=== PATIENT | female | born 1960 | race Caucasian/White ===

== ENCOUNTER 2016-02-19 22:35 | Inpatient (IN) ==
[2016-02-20] MEDS ORDERED: methylPREDNISolone 125 MG/2 ML VIAL IVP ONE (00:56)
[2016-02-20] MEDS ORDERED: Ipratropium/Albuterol Neb 3 ML IH ONE ×2 (00:57→02:49)
--- NOTE | 2016-02-20 00:59 | Emergency Department Note ---
START Narrative - START START: I examined this patient and my medical decision-making was reviewed with the BUTTON CLAMPER/PA/Advanced Practice Nurse/Resident Physician. I agree with the documented findings, disposition and treatment plan as described except to the extent set forth below. ED attending note: Patient seen with the emergency medicine resident . Please see a copy of his note for details of the H&P, evaluation and management and disposition of this emergency Department patient. We independently had skhd-ea-[id number] contact with the patient. Briefly 48-year-old female history of COPD requesting a steroid taper. Refusing any other type of workup. Patient is hemodynamically stable. Given a prescription for steroid taper. Patient stable for discharge home
[2016-02-20] MEDS ORDERED: 0.9 % Sodium Chloride 1,000 ML IV ONE (01:54)
[2016-02-20] MEDS ORDERED: *HR* LORazepam 2 MG/ML VIAL IVP ONE (02:16)
[2016-02-20 02:22] LABS: Basophils % 0.3 %; Hematocrit 47.2 % (35.3-44.9); Immature Granulocytes % 0.9 % (0-4); Immature Platelets 3.1 % (1.1-6.1); Lymphocytes # 2.5 K/mcL (0.6-4.6); Lymphocytes % 17.4 %; Mean Corpuscular HGB Conc 33.9 g/dL (31.6-35.5); Mean Corpuscular Hemoglobin 31.3 pg (28.0-33.3); Mean Corpuscular Volume 92.4 fL (83.0-100.0); Mean Platelet Volume 10.2 fL (9.4-12.4); Monocytes # 1.3 K/mcL (0.0-1.3); Monocytes % 8.7 %; Neutrophils # 10.5 K/mcL (1.6-8.9); Platelet Count 337 K/mcL (140-400); Red Blood Count 5.11 M/mcL (3.82-4.97); Red Cell Distribution Width 15.1 % (11.5-14.5); Segmented Neutrophils % 72.7 %
[2016-02-20 02:35] LABS: BUN/Creatinine Ratio 44 (6-26); Carbon Dioxide 19 mEq/L (19-29); Chloride 108 mEq/L (98-109); Glucose 167 mg/dL (70-99); Osmolality,Calculated 303 (280-300); Potassium 3.7 mEq/L (3.5-4.5); Sodium 141 mEq/L (136-145); eGFR For African Americans > 60 (> 60); eGFR For Non-African Americans > 60 (> 60)
[2016-02-20 02:36] LABS: Blood Urea Nitrogen 32 mg/dL (7-20)
[2016-02-20] MEDS ORDERED: cloNIDine HCl 0.1 MG TABLET PO STA (02:42)
--- NOTE | 2016-02-20 02:42 | Emergency Department Note ---
Disposition Clinical Impression: COPD exacerbation Disposition: Admitted As Inpatient Condition: Fair SOB HPI - General Chief Complaint: ED Shortness of Breath/Dyspnea Stated Complaint: LESTER Time Seen by Provider: 02/20/16 00:46 Source: patient, family Limitations: no limitations Nursing Notes Reviewed: Yes Vital Signs Reviewed: Yes - History of Present Illness Patient here for evaluation of shortness of breath. Patient started having shortness of breath proximally 5 days ago. Patient was seen and evaluated on Tuesday and diagnosed COPD exacerbation. Patient attempted outpatient management with prednisone, Levaquin. Patient has been taking her nebulizer treatments every 4 hours at home. Patient with worsening symptoms of shortness of breath prompting her to return. Patient states she normally gets a prednisone taper that helps better. Patient states she is self-pay and does not want anything other than some breathing treatments dose of Solu-Medrol in prednisone taper. Patient absolutely refuses all other medications and treatments as well as further investigation of symptoms and is refusing admission as this is likely what is going to be recommended. - Related Data Home Medications Medication Instructions Recorded Confirmed Amlodipine Besylate [Norvasc] 10 mg PO QAM 09/25/14 02/20/16 Budesonide/Formoterol 160/4.5 2 puff IH BID 09/25/14 02/20/16 [Symbicort] Aspirin Enteric Coated [Aspirin EC] 81 mg PO QAM 11/03/14 02/20/16 Ipratropium/Albuterol Neb [Duoneb] 3 ml IH Q4HR PRN 02/10/15 02/20/16 Metformin [Glucophage] 1,000 mg PO BID 02/10/15 02/20/16 Pantoprazole Sodium [Protonix] 40 mg PO BID 02/10/15 02/20/16 Aclidinium [place] [Tudorza 400 mcg IH BID 05/03/15 05/03/15 Pressair] Atorvastatin [Lipitor] 40 mg PO DAILY 05/03/15 02/20/16 Glimepiride [Amaryl] 4 mg PO DAILY 05/03/15 02/20/16 Losartan/Hydrochlorothiazide 1 tab PO DAILY 05/03/15 02/20/16 [Losartan-Hctz 100-25 mg Tab] Previous Rx's Medication Instructions Recorded CloNIDine HCl 0.3 mg PO Q6HR #270 tablet 11/07/14 Azithromycin [Zithromax] 250 mg PO DAILY #4 tablet 05/04/15 PredniSONE 60 mg PO DAILY #18 tablet 05/04/15 Levofloxacin [Levaquin] 500 mg PO DAILY #10 tablet 11/05/15 PredniSONE 40 mg PO DAILY #5 tablet 11/05/15 PredniSONE 40 mg PO NOW #20 tablet 02/02/16 Levofloxacin [Levaquin] 500 mg PO DAILY #7 tablet 02/17/16 PredniSONE [Prednisone] 50 mg PO DAILY 5 Days 02/17/16 Allergies Allergy/AdvReac Type Severity Reaction Status Date / Time Penicillins Allergy Unknown See Verified 02/17/16 10:18 Comments NSAIDS (Non-Steroidal Allergy See Verified 02/17/16 10:18 Anti-Inflamma Comments tramadol AdvReac Nausea Verified 02/17/16 10:18 Constitutional: Reports: chills, weakness. Denies: fever Eyes: Denies: eye pain ENT ED: Denies: ear pain Cardiovascular: Denies: chest pain Respiratory: Reports: cough, dyspnea, wheezes Gastrointestinal: Denies: abdominal pain Genitourinary: Denies: urgency, dysuria Musculoskeletal: Denies: back pain Integumentary: Denies: rash, abrasion Neurological: Denies: headache Psychiatric: Denies: anxiety Past Medical History - Past Medical History Medical history: Reports: COPD, diabetes, GERD, hyperlipidemia, hypertension Surgical history: Reports: appendectomy, cholecystectomy, knee replacement (Left ), other Psychiatric history: Reports: no psych history LOGISTICIAN history: Reports: non-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, ectopic , other - Social History Smoking Status: Current every day smoker Smokeless Tobacco Status: No Alcohol use: Reports: none Drug use: Reports: none Physical Exam - General Limitations: no limitations General appearance: alert, in no apparent distress - Head Head exam: atraumatic, normocephalic, normal inspection - Eye Eye exam: Present: normal appearance, PERRL, EOMI - ENT ENT exam: normal exam, normal oropharynx - Neck Neck exam: Present: normal inspection - Chest Chest inspection: Present: normal inspection, symmetric chest wall rise. Absent : tenderness - Respiratory Respiratory exam: Present: respiratory distress, wheezes (Diffuse throughout.) - Cardiovascular Cardiovascular exam: Present: regular rate, normal rhythm - Abdominal Exam Abdominal exam: Present: soft, Non-Tender - Extremities Exam Extremities exam: Present: normal inspection - Back Exam Back exam: Present: normal inspection - Neurological Exam Neurological exam: Present: alert, oriented X3 - Psychiatric Psychiatric exam: Present: normal affect, normal mood - Skin Skin exam: Present: warm, dry Course - Reevaluation(s) Reevaluation #1: After breathing treatments the patient did not feel any better and it occurred to her that she likely will not feel better going home without further intervention. Patient asking us to go ahead and complete her workup so that she can be admitted to the hospital. Reevaluation #2: Pt will be placed on bipap 2/2 increased wob Reevaluation #3: Pt improved and stabalized - Consultations Consultation #1: Accepted by Dr. Ch Vital Signs Temperature 97.9 F 02/19/16 22:37 Pulse Rate 130 02/19/16 22:37 Respiratory Rate 22 02/19/16 22:37 Blood Pressure 161/95 02/19/16 22:37 O2 Sat by Pulse Oximetry 94 L 02/19/16 22:37 Temperature 97.4 F L 02/20/16 06:42 Pulse Rate 107 02/20/16 06:42 Respiratory Rate 22 02/20/16 06:42 Blood Pressure 147/92 02/20/16 06:42 O2 Sat by Pulse Oximetry 95 02/20/16 06:42 Oxygen Delivery Oxygen Delivery Nasal Cannula Shortness of Breath/Dyspnea - Medical Records Medical records reviewed: Yes I reviewed the patient's medical records. - Lab Data Lab results reviewed: Yes I reviewed the patient's lab results. Result diagrams: 02/20/16 02:15 02/20/16 02:15 Lab Results 02/20/16 02/20/16 02/20/16 Range/Units 02:15 02:15 02:15 WBC 14.5 H D (4.3-11.1) K/mcL RBC 5.11 H (3.82-4.97) M/mcL Hgb 16.0 H (11.5-15.4) g/dL Hct 47.2 H (35.3-44.9) % MCV 92.4 (83.0-100.0) fL MCH 31.3 (28.0-33.3) pg MCHC 33.9 (31.6-35.5) g/dL RDW 15.1 H (11.5-14.5) % Plt Count 337 (140-400) K/mcL MPV 10.2 (9.4-12.4) fL Immature Gran % 0.9 (0-4) % Seg Neutrophils % 72.7 % Lymphocytes % 17.4 % Monocytes % 8.7 % Eosinophils % 0.0 % Basophils % 0.3 % Neutrophils # 10.5 H (1.6-8.9) K/mcL Lymphocytes # 2.5 (0.6-4.6) K/mcL Monocytes # 1.3 (0.0-1.3) K/mcL Eosinophils # 0.0 (0.0-0.6) K/mcL Basophils # 0.0 (0.0-0.2) K/mcL Immature Plt Fraction 3.1 (1.1-6.1) % Sodium 141 (136-145) mEq/L Potassium 3.7 (3.5-4.5) mEq/L Chloride 108 (98-109) mEq/L Carbon Dioxide 19 (19-29) mEq/L BUN 32 H D (7-20) mg/dL Creatinine 0.72 (0.57-1.11) mg/dL Est GFR ( Amer) > 60 (> 60) Est GFR (Non-Af Amer) > 60 (> 60) BUN/Creatinine Ratio 44 H (6-26) Glucose 167 H (70-99) mg/dL Calculated Osmolality 303 H (280-300) Calcium 10.0 (8.6-10.8) mg/dL Magnesium (1.6-2.6) mg/dL Troponin I 0.01 (0-0.03) ng/mL 02/20/16 Range/Units 02:15 WBC (4.3-11.1) K/mcL RBC (3.82-4.97) M/mcL Hgb (11.5-15.4) g/dL Hct (35.3-44.9) % MCV (83.0-100.0) fL MCH (28.0-33.3) pg MCHC (31.6-35.5) g/dL RDW (11.5-14.5) % Plt Count (140-400) K/mcL MPV (9.4-12.4) fL Immature Gran % (0-4) % Seg Neutrophils % % Lymphocytes % % Monocytes % % Eosinophils % % Basophils % % Neutrophils # (1.6-8.9) K/mcL Lymphocytes # (0.6-4.6) K/mcL Monocytes # (0.0-1.3) K/mcL Eosinophils # (0.0-0.6) K/mcL Basophils # (0.0-0.2) K/mcL Immature Plt Fraction (1.1-6.1) % Sodium (136-145) mEq/L Potassium (3.5-4.5) mEq/L Chloride (98-109) mEq/L Carbon Dioxide (19-29) mEq/L BUN (7-20) mg/dL Creatinine (0.57-1.11) mg/dL Est GFR ( Amer) (> 60) Est GFR (Non-Af Amer) (> 60) BUN/Creatinine Ratio (6-26) Glucose (70-99) mg/dL Calculated Osmolality (280-300) Calcium (8.6-10.8) mg/dL Magnesium 1.7 (1.6-2.6) mg/dL Troponin I (0-0.03) ng/mL - Radiology Data Radiology results reviewed: Yes I reviewed the patient's radiology results. - EKG Data EKG attestation: Yes I reviewed and interpreted this EKG. EKG results narrative: EKG shows sinus tachycardia with a ventricular rate of 152. ID interval 116. QRS 81. QTC 399. Patient has no ST elevations or depressions.
--- NOTE | 2016-02-20 04:40 | Internal Med History&Physical ---
Date of Encounter: 02/20/16 Time of Encounter: 04:40 Assessment and Plan (1) Acute on chronic respiratory failure Current visit: No Status: Acute ARF with hypoxia in the setting of COPD exacerbation. Patient currently stable on 6 LPM via BiPAP mask. Continue IV steroids. Continue duonebs and home symbicort. Continue PO Levaquin. Patient seems to be improving on BiPAP, consider ABG. Patient refused workup initially in the ED as she is self pay. Qualifiers: Respiratory failure complication: hypoxia Qualified Code(s): J96.21 - Acute and chronic respiratory failure with hypoxia (2) Acute exacerbation of chronic obstructive airways disease Current visit: No Status: Acute See above. (3) Leukocytosis Current visit: No Status: Acute WBC elevated at 14.5 Likely reactive in the setting of COPD exacerbation CXR showed no acute processes. Patient is afebrile. Qualifiers: Leukocytosis type: unspecified Qualified Code(s): D72.829 - Elevated white blood cell count, unspecified (4) Accelerated hypertension Current visit: No Status: Chronic History of renal artery stenosis. Current BP 173/105. Continue home medications and adjust as needed. (5) Diabetes mellitus Current visit: No Status: Acute Current BG 167. Continue home glimepiride. Consider low intensity SSI. Qualifiers: Diabetes mellitus type: type 2 Diabetes mellitus complication status: without complication Qualified Code(s): E11.9 - Type 2 diabetes mellitus without complications (6) Hyperlipidemia Current visit: No Status: Chronic Continue home medications. Qualifiers: Hyperlipidemia type: unspecified Qualified Code(s): E78.5 - Hyperlipidemia , unspecified (7) Tobacco abuse Current visit: No Status: Chronic Currently 1ppd, will give nicotine patch while inpatient. Advise to stop smoking, especially with current COPD exacerbation. Internal Medicine - H&P: HPI Chief complaint: shortness of breath Admitted From: Emergency Dept Plans for Post Hospital Care: Home History of present illness: Ms. Ren is a 56 year old female presented to the ED for shortness of breath for approximately 5 days ago. Patient seen and evaluated on Tuesday in the ED and was diagnosed with COPD exacerbation. Patient failed outpatient management with prednisone, Levaquin, and duonebs. Patient was taking her nebulizer treatments every 4 hours at home. On exam patient was on BiPAP mask and kept responses short and direct. She did note that the ativan she was given was making her tired. Patient admits to chronic neck and back pain and states she currently has a headache. Patient also notes recent diarrhea and vomiting that has currently resolved. Patient denies any dizziness, chest pain, abdominal pain , syncope, numbness, tingling, melena, dysuria, or any signs of blood in stool/ vomit/urine. In the ED patient expressed concern that she is self-pay and initially refused workup and further treatments, until she continued to be short of breath after receiving breathing treatments. Past Med Surg Social Fam HX - Past Medical History Medical history: COPD, diabetes, GERD, hyperlipidemia, hypertension Psychiatric history: no psych history - Past Surgical History Surgical History: appendectomy, cholecystectomy, knee replacement (Left), other - Social History Smoking Status: Current every day smoker Smokeless Tobacco Status: No Alcohol use: none Drug use: none - Family History Father Living Status: Hx Family Cardiac Disorders: Yes (Coronary artery disease) Mother Living Status: Still Living Hx Family Cardiac Disorders: Yes (Hypertension) Hx Family Respiratory Disorders: No Hx Family Cancer: No Hx Family GI Disorders: No Hx Family Endocrine Disorder: Yes (Diabetes mellitus) Hx Family Neuromuscular Disorders: No Hx Family Neurologic Disorders: No Hx Family HEENT Disorders: No Hx Family Autoimmune Disorders: No Internal Medicine - H&P: Meds Amlodipine Besylate [Norvasc] 10 mg PO QAM 09/25/14 [History] Budesonide/Formoterol 160/4.5 [Symbicort] 2 puff IH BID 09/25/14 [History] Aspirin Enteric Coated [Aspirin EC] 81 mg PO QAM 11/03/14 [History] CloNIDine HCl 0.3 mg PO Q6HR #270 tablet 11/07/14 [Rx] Ipratropium/Albuterol Neb [Duoneb] 3 ml IH Q4HR PRN 02/10/15 [History] Metformin [Glucophage] 1,000 mg PO BID 02/10/15 [History] Pantoprazole Sodium [Protonix] 40 mg PO BID 02/10/15 [History] Aclidinium [place] [Tudorza Pressair] 400 mcg IH BID 05/03/15 [History] Atorvastatin [Lipitor] 40 mg PO DAILY 05/03/15 [History] Glimepiride [Amaryl] 4 mg PO DAILY 05/03/15 [History] Losartan/Hydrochlorothiazide [Losartan-Hctz 100-25 mg Tab] 1 tab PO DAILY [History] Azithromycin [Zithromax] 250 mg PO DAILY #4 tablet 05/04/15 [Rx] PredniSONE 60 mg PO DAILY #18 tablet 05/04/15 [Rx] Levofloxacin [Levaquin] 500 mg PO DAILY #10 tablet 11/05/15 [Rx] PredniSONE 40 mg PO DAILY #5 tablet 11/05/15 [Rx] PredniSONE 40 mg PO NOW #20 tablet 02/02/16 [Rx] Levofloxacin [Levaquin] 500 mg PO DAILY #7 tablet 02/17/16 [Rx] PredniSONE [Prednisone] 50 mg PO DAILY 5 Days 02/17/16 [Rx] Allergies Penicillins Allergy (Unknown, Verified 02/17/16 10:18) See Comments states can take Keflex. NSAIDS (Non-Steroidal Anti-Inflamma Allergy (Verified 02/17/16 10:18) See Comments tramadol Adverse Reaction (Verified 02/17/16 10:18) Nausea ROS unobtainable: other (limited responses in the setting of sedatives and currently on BiPAP.) All Systems PM: A 10-system review of systems was performed and is negative for pertinent findings except as documented above in the HPI. - Constitutional Constitutional: no chills, no fever(s) - EENT Nose, mouth and throat: no dysphagia - Cardiovascular Cardiovascular ROS IM: dyspnea, no chest pain, no lightheadedness, no syncope - Respiratory Respiratory: cough, dyspnea, wheezing - Gastrointestinal Gastrointestinal: diarrhea, nausea, vomiting, no abdominal pain, no hematemesis , no melena - Musculoskeletal Musculoskeletal ROS IM: back pain, neck pain, no numbness, no tingling - Integumentary Integumentary IM: no new lesions, no rash - Neurological Neurological ROS: no dizziness, no numbness, no tingling - Constitutional Vitals: Temp Pulse Resp BP Pulse Ox 97.9 F 135 22 173/105 96 02/20/16 04:30 02/20/16 04:30 02/20/16 04:30 02/20/16 04:30 02/20/16 04:30 General appearance: Present: cooperative, mild distress, A&O X 3, answers questions appropriately - Head Head exam: Present: atraumatic, normocephalic - Eye Eye exam: Present: EOMI, conjuntiva pink, sclera anicteric - Neck Neck exam general surgery: Present: full ROM, tenderness (states chronic neck pain), supple, trachea midline. Absent: lymphadenopathy, nuchal rigidity - Respiratory Respiratory exam: Present: accessory muscle use, CTAB, prolonged expiratory phase, wheezes (expiratory wheezing). Absent: chest wall tenderness, rales, rhonchi - Cardiovascular Cardiovascular exam: Present: +S1, +S2, tachycardia. Absent: diastolic murmur, gallop, rubs, systolic murmur - GI/Abdominal GI/Abdominal exam: Present: normal bowel sounds, soft, no peritoneal signs. Absent: distended, guarding, tenderness - Extremities Exam Extremities exam: Present: warm, radial pulses palpable and symetrical (1+ pulses b/l). Absent: calf tenderness, cyanotic, pedal edema - Neurological Exam Neurological exam: Present: alert, oriented X3, no focal deficits. Absent: facial droop, speech deficit - Skin Skin exam: Present: dry, intact Internal Med - H&P Results - Labs CBC & Chem 7: 02/20/16 02:15 02/20/16 02:15
[2016-02-20] MEDS ORDERED: Ipratropium/Albuterol Neb 3 ML IH PRN (05:33)
[2016-02-20] MEDS: MethylPREDNISolone 40 MG/ML VIAL IVP SCH ×2 (06:25→16:49)
[2016-02-20] MEDS ORDERED: Albuterol 2.5 MG/3 ML NEBULIZER IH PRN (07:09)
[2016-02-20] MEDS ORDERED: *HR* Metformin 500 MG TABLET PO SCH (08:00)
[2016-02-20] MEDS ORDERED: Pantoprazole 40 MG VIAL IVP SCH (09:00)
[2016-02-20] MEDS ORDERED: *HR* Glimepiride 4 MG TABLET PO SCH (09:00)
[2016-02-20] MEDS: Losartan/HCTZ 50-12.5 TABLET PO SCH (10:02)
[2016-02-20] MEDS: Aspirin Enteric Coated 81 MG Tablet PO SCH (10:02)
[2016-02-20] MEDS: amLODIPine 5 MG TABLET PO SCH (10:02)
[2016-02-20] MEDS: levoFLOXacin 500 MG TABLET PO SCH (10:02)
[2016-02-20] MEDS: Ipratropium/Albuterol Neb 3 ML IH SCH ×3 (11:07→22:37)
[2016-02-20] MEDS: Budesonide/Formoterol 160/4.5 MDI IH SCH ×2 (11:07→22:37)
[2016-02-20] MEDS: *HR* LORazepam 1 MG TABLET PO PRN ×2 (11:10→16:49)
--- NOTE | 2016-02-20 11:42 | Electrocardiograph Report ---
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
[2016-02-20 14:48] LABS: Adenovirus Not Detected (Not Detect); Bordetella Pertussis Not Detected (Not Detect); Chlamydophila pneumoniae Not Detected (Not Detect); Coronavirus 229E ***DETECTED*** (Not Detect); Coronavirus HKU1 Not Detected (Not Detect); Coronavirus NL63 Not Detected (Not Detect); Coronavirus OC43 ***DETECTED*** (Not Detect); Human Metapneumovirus Not Detected (Not Detect); Human Rhinovirus/Enterovirus Not Detected (Not Detect); Influenza A Subtype 2009 H1 Not Detected (Not Detect); Influenza A Untypeable Not Detected (Not Detect); Influenza B Not Detected (Not Detect); Mycoplasma pneumoniae Not Detected (Not Detect); Parainfluenza Virus 1 Not Detected (Not Detect); Parainfluenza Virus 2 Not Detected (Not Detect); Parainfluenza Virus 3 Not Detected (Not Detect); Parainfluenza Virus 4 Not Detected (Not Detect); Respiratory Syncytial Virus Not Detected (Not Detect)
[2016-02-20] MEDS ORDERED: D5% in Water 1,000 ML IV PRN (15:00)
[2016-02-20] MEDS ORDERED: Dextrose Gel 15 GM PO PRN ×2 (15:00)
[2016-02-20] MEDS ORDERED: *HR* Dextrose 50 % in Water (Syg) 50 ML SYRINGE IVP PRN (15:00)
[2016-02-20] MEDS: Insulin LISPRO 300 UNITS/3 ML VIAL SQ SCH ×2 (16:47→22:18)
[2016-02-20] MEDS: cloNIDine HCl 0.1 MG TABLET PO SCH (16:49)
--- NOTE | 2016-02-20 17:05 | Internal Med Progress Note ---
Date of Encounter: 02/20/16 Time of Encounter: 17:03 - Assessment and plan (1) Acute on chronic respiratory failure Current Visit: No Status: Acute Assessment and plan: ARF with hypoxia in the setting of COPD exacerbation. Patient currently on BiPAP mask. Continue IV steroids. Continue duonebs and home symbicort. Continue PO Levaquin. Patient seems to be improving on BiPAP, positive for browning virus. Patient refused workup initially in the ED as she is self pay. cxr shows no pneumonia Qualifiers: Respiratory failure complication: hypoxia Qualified Code(s): J96.21 - Acute and chronic respiratory failure with hypoxia (2) Acute exacerbation of chronic obstructive airways disease Current Visit: No Status: Acute Assessment and plan: possible 2/2 viral infection browning virus, (3) Diabetes mellitus Current Visit: No Status: Chronic Qualifiers: Qualified Code(s): E11.9 - Type 2 diabetes mellitus without complications (4) Hyperlipidemia Current Visit: No Status: Chronic Qualifiers: Hyperlipidemia type: unspecified Qualified Code(s): E78.5 - Hyperlipidemia , unspecified (5) Hypertension Current Visit: No Status: Chronic Qualifiers: Hypertension type: essential hypertension Qualified Code(s): I10 - Essential (primary) hypertension (6) Tachycardia Current Visit: Yes Status: Acute Assessment and plan: carl noted to be tachycardic at 150s, last EKG showed possible atrial flutter , because of the rapid rate, unclear of the rhythm but she has no h/o a- fib or flutter. will give one dose of cardizem bolus, BP stable now. order ECHO, will repeat EKG after the cardizem. - Time Spent With Patient 25 - 35 minutes - Subjective Interval history: denies chest pain , on BIPAP now and says that it makes her breathe better. she is self pay so is refusing the tele monitoring. - Constitutional Vitals: Temp Pulse Resp BP Pulse Ox 98.0 F 149 16 160/96 94 L 02/20/16 16:41 02/20/16 16:41 02/20/16 16:41 02/20/16 16:41 02/20/16 16:41 General appearance: Present: cooperative, A&O X 3, answers questions appropriately Exam: General appearance: Present: cooperative, mild distress, A&O X 3, answers questions appropriately - Head Head exam: Present: atraumatic, normocephalic - Eye Eye exam: Present: EOMI, conjuntiva pink, sclera anicteric - Neck Neck exam general surgery: Present: full ROM, tenderness (states chronic neck pain), supple, trachea midline. Absent: lymphadenopathy, nuchal rigidity - Respiratory Respiratory exam: Present: accessory muscle use, CTAB, prolonged expiratory phase, wheezes (expiratory wheezing). Absent: chest wall tenderness, rales, rhonchi - Cardiovascular Cardiovascular exam: Present: +S1, +S2, tachycardia. Absent: diastolic murmur, gallop, rubs, systolic murmur - GI/Abdominal GI/Abdominal exam: Present: normal bowel sounds, soft, no peritoneal signs. Absent: distended, guarding, tenderness - Extremities Exam Extremities exam: Present: warm, radial pulses palpable and symetrical (1+ pulses b/l). Absent: calf tenderness, cyanotic, pedal edema - Neurological Exam Neurological exam: Present: alert, oriented X3, no focal deficits. Absent: facial droop, speech deficit - Skin Skin exam: Present: dry, intact Internal Medicine: Result - Labs CBC & Chem 7: 02/20/16 02:15 02/20/16 02:15 Consult Discharge Plan - Plan Referrals: Ruddy Jason MD [Primary Care Provider] -
[2016-02-21] MEDS: cloNIDine HCl 0.1 MG TABLET PO SCH ×4 (00:12→18:20)
[2016-02-21] MEDS: *HR* LORazepam 1 MG TABLET PO PRN ×3 (00:19→20:18)
[2016-02-21] MEDS: Ipratropium/Albuterol Neb 3 ML IH SCH ×4 (04:14→21:41)
[2016-02-21] MEDS: MethylPREDNISolone 40 MG/ML VIAL IVP SCH ×2 (06:39→18:21)
[2016-02-21 08:59] LABS: Basophils % 0.4 %; Eosinophils % 0.1 %; Hematocrit 40.6 % (35.3-44.9); Immature Granulocytes % 1.2 % (0-4); Lymphocytes # 1.4 K/mcL (0.6-4.6); Lymphocytes % 13.8 %; Mean Corpuscular HGB Conc 32.5 g/dL (31.6-35.5); Mean Corpuscular Hemoglobin 31.1 pg (28.0-33.3); Mean Corpuscular Volume 95.8 fL (83.0-100.0); Mean Platelet Volume 9.7 fL (9.4-12.4); Monocytes # 0.6 K/mcL (0.0-1.3); Monocytes % 5.9 %; Neutrophils # 7.7 K/mcL (1.6-8.9); Platelet Count 268 K/mcL (140-400); Red Blood Count 4.24 M/mcL (3.82-4.97); Segmented Neutrophils % 78.6 %
[2016-02-21 09:00] LABS: Hemoglobin 13.2 g/dL (11.5-15.4)
[2016-02-21] MEDS: Insulin LISPRO 300 UNITS/3 ML VIAL SQ SCH ×4 (09:09→20:24)
[2016-02-21] MEDS: Aspirin Enteric Coated 81 MG Tablet PO SCH (09:14)
[2016-02-21] MEDS: Losartan/HCTZ 50-12.5 TABLET PO SCH (09:14)
[2016-02-21] MEDS: levoFLOXacin 500 MG TABLET PO SCH (09:14)
[2016-02-21 09:15] LABS: BUN/Creatinine Ratio 46 (6-26); Blood Urea Nitrogen 32 mg/dL (7-20); Calcium 9.4 mg/dL (8.6-10.8); Carbon Dioxide 27 mEq/L (19-29); Chloride 104 mEq/L (98-109); Glucose 136 mg/dL (70-99); Osmolality,Calculated 297 (280-300); Potassium 4.3 mEq/L (3.5-4.5); Sodium 139 mEq/L (136-145); eGFR For African Americans > 60 (> 60); eGFR For Non-African Americans > 60 (> 60)
[2016-02-21] MEDS: amLODIPine 5 MG TABLET PO SCH (09:15)
[2016-02-21] MEDS: Budesonide/Formoterol 160/4.5 MDI IH SCH ×2 (11:30→21:41)
--- NOTE | 2016-02-21 15:25 | Internal Med Progress Note ---
Date of Encounter: 02/21/16 Time of Encounter: 15:23 - Assessment and plan (1) Acute on chronic respiratory failure Current Visit: No Status: Acute Assessment and plan: ARF with hypoxia in the setting of COPD exacerbation. Patient currently intermittently on BiPAP mask. Continue IV steroids, still wheezing , will increase methylpred to 40 q8h. Continue duonebs and home symbicort. Continue PO Levaquin. Patient seems to be improving on BiPAP, positive for browning virus. Patient refused workup initially in the ED as she is self pay. cxr shows no pneumonia Qualifiers: Respiratory failure complication: hypoxia Qualified Code(s): J96.21 - Acute and chronic respiratory failure with hypoxia (2) Acute exacerbation of chronic obstructive airways disease Current Visit: No Status: Acute Assessment and plan: possible 2/2 viral infection browning virus, (3) Diabetes mellitus Current Visit: No Status: Chronic Qualifiers: Qualified Code(s): E11.9 - Type 2 diabetes mellitus without complications (4) Hyperlipidemia Current Visit: No Status: Chronic Qualifiers: Hyperlipidemia type: unspecified Qualified Code(s): E78.5 - Hyperlipidemia , unspecified (5) Hypertension Current Visit: No Status: Chronic Qualifiers: Hypertension type: essential hypertension Qualified Code(s): I10 - Essential (primary) hypertension (6) Tachycardia Current Visit: Yes Status: Acute Assessment and plan: HR stable now. - Time Spent With Patient 25 - 35 minutes - Subjective Interval history: denies chest pain , BIPAP on and off , saturating 93% on 4 l of oxygen she is self pay so is refusing the tele monitoring. - Constitutional Vitals: Temp Pulse Resp BP Pulse Ox 97.5 F L 100 18 131/82 100 02/21/16 11:06 02/21/16 11:06 02/21/16 11:06 02/21/16 11:06 02/21/16 11:06 General appearance: Present: cooperative, A&O X 3, answers questions appropriately Exam: neck- supple chest- b/l wheezing, no creptns cvs-s1 and s2, no mr//g abd-soft, non tender, bs are present ext- no edema Internal Medicine: Result - Labs CBC & Chem 7: 02/21/16 08:42 02/21/16 08:42 Labs: Short CBC 02/21/16 Range/Units 08:42 WBC 9.8 (4.3-11.1) K/mcL Hgb 13.2 D (11.5-15.4) g/dL Hct 40.6 (35.3-44.9) % Plt Count 268 (140-400) K/mcL Neutrophils # 7.7 (1.6-8.9) K/mcL BMP 02/21/16 08:42 Sodium 139 Potassium 4.3 Chloride 104 Carbon Dioxide 27 BUN 32 H Creatinine 0.69 Glucose 136 H Calcium 9.4 Consult Discharge Plan - Plan Referrals: Ruddy Jason MD [Primary Care Provider] - (Request made on )
[2016-02-22] MEDS: cloNIDine HCl 0.1 MG TABLET PO SCH ×5 (00:19→23:53)
[2016-02-22] MEDS: MethylPREDNISolone 40 MG/ML VIAL IVP SCH ×4 (00:19→23:54)
[2016-02-22] MEDS ORDERED: Ipratropium/Albuterol Neb 3 ML IH ONE (02:22)
[2016-02-22] MEDS: *HR* LORazepam 1 MG TABLET PO PRN ×3 (02:27→20:19)
[2016-02-22] MEDS ORDERED: Ipratropium/Albuterol Neb 3 ML IH SCH (02:30)
[2016-02-22] MEDS: Ipratropium/Albuterol Neb 3 ML IH SCH ×6 (03:09→23:48)
[2016-02-22 03:15] LABS: ABG Base Excess 1.1 mEq/L (-2.0 to 3.0); ABG HCO3 29.3 mEQ/L (21-27); ABG Oxygen Saturation 99 % (95-98); ABG PCO2 61 mmHg (35-45); ABG PH 7.29 pH Units (7.32-7.45); ABG PO2 166 mmHg (85-104); ABG TCO2 31.2 mEq/L (20-26)
[2016-02-22 03:16] LABS: Blood Gas FiO2 40 %
[2016-02-22] MEDS: Insulin LISPRO 300 UNITS/3 ML VIAL SQ SCH ×4 (08:39→20:16)
[2016-02-22] MEDS: amLODIPine 5 MG TABLET PO SCH (08:40)
[2016-02-22] MEDS: Aspirin Enteric Coated 81 MG Tablet PO SCH (08:40)
[2016-02-22] MEDS: levoFLOXacin 500 MG TABLET PO SCH (08:41)
[2016-02-22] MEDS: Losartan/HCTZ 50-12.5 TABLET PO SCH (08:41)
[2016-02-22 08:56] LABS: Basophils # 0.1 K/mcL (0.0-0.2); Basophils % 0.7 %; Hematocrit 42.6 % (35.3-44.9); Hemoglobin 14.3 g/dL (11.5-15.4); Immature Granulocytes % 2.6 % (0-4); Immature Platelets 3.5 % (1.1-6.1); Lymphocytes # 1.2 K/mcL (0.6-4.6); Lymphocytes % 9.4 %; Mean Corpuscular HGB Conc 33.6 g/dL (31.6-35.5); Mean Corpuscular Hemoglobin 31.8 pg (28.0-33.3); Mean Corpuscular Volume 94.9 fL (83.0-100.0); Mean Platelet Volume 9.9 fL (9.4-12.4); Monocytes # 0.4 K/mcL (0.0-1.3); Monocytes % 3.2 %; Neutrophils # 11.1 K/mcL (1.6-8.9); Platelet Count 300 K/mcL (140-400); Red Blood Count 4.49 M/mcL (3.82-4.97); Red Cell Distribution Width 14.2 % (11.5-14.5); Segmented Neutrophils % 84.1 %
[2016-02-22 09:07] LABS: BUN/Creatinine Ratio 43 (6-26); Blood Urea Nitrogen 33 mg/dL (7-20); Calcium 9.5 mg/dL (8.6-10.8); Carbon Dioxide 27 mEq/L (19-29); Chloride 96 mEq/L (98-109); Glucose 258 mg/dL (70-99); Osmolality,Calculated 296 (280-300); Potassium 4.6 mEq/L (3.5-4.5); Sodium 135 mEq/L (136-145); eGFR For African Americans > 60 (> 60); eGFR For Non-African Americans > 60 (> 60)
[2016-02-22] MEDS: Budesonide/Formoterol 160/4.5 MDI IH SCH ×2 (10:14→20:54)
[2016-02-22] MEDS ORDERED: *HR* Metoprolol 5 MG/5 ML VIAL IVP ONE ×3 (12:48→12:53)
[2016-02-22] MEDS: Ondansetron ODT 4 MG TAB.RAPDIS SL PRN (23:53)
[2016-02-23] MEDS: Ipratropium/Albuterol Neb 3 ML IH SCH ×6 (03:54→23:43)
[2016-02-23] MEDS: cloNIDine HCl 0.1 MG TABLET PO SCH ×4 (04:41→23:30)
[2016-02-23] MEDS: *HR* LORazepam 1 MG TABLET PO PRN ×3 (05:09→21:06)
[2016-02-23] MEDS ORDERED: *HR* Metoprolol 5 MG/5 ML VIAL IVP ONE (07:18)
[2016-02-23] MEDS: Budesonide/Formoterol 160/4.5 MDI IH SCH ×2 (07:53→20:12)
[2016-02-23] MEDS: Insulin LISPRO 300 UNITS/3 ML VIAL SQ SCH ×4 (08:34→21:05)
[2016-02-23] MEDS: Losartan/HCTZ 50-12.5 TABLET PO SCH (08:34)
[2016-02-23] MEDS: MethylPREDNISolone 40 MG/ML VIAL IVP SCH (08:34)
[2016-02-23] MEDS: levoFLOXacin 500 MG TABLET PO SCH (08:35)
[2016-02-23] MEDS: Aspirin Enteric Coated 81 MG Tablet PO SCH (08:35)
[2016-02-23 13:15] LABS: Hematocrit 43.9 % (35.3-44.9); Hemoglobin 14.6 g/dL (11.5-15.4); Immature Granulocytes % 3.8 % (0-4); Lymphocytes % 6.3 %; Mean Corpuscular HGB Conc 33.3 g/dL (31.6-35.5); Mean Corpuscular Hemoglobin 31.6 pg (28.0-33.3); Mean Platelet Volume 9.9 fL (9.4-12.4); Platelet Count 368 K/mcL (140-400); Red Blood Count 4.62 M/mcL (3.82-4.97); Red Cell Distribution Width 14.4 % (11.5-14.5); Segmented Neutrophils % 85.3 %
[2016-02-23 13:16] LABS: Basophils # 0.2 K/mcL (0.0-0.2); Basophils % 0.9 %; Lymphocytes # 1.3 K/mcL (0.6-4.6); Monocytes # 0.8 K/mcL (0.0-1.3); Monocytes % 3.7 %
[2016-02-23 13:26] LABS: Neutrophils # 17.7 K/mcL (1.6-8.9)
[2016-02-23 13:29] LABS: BUN/Creatinine Ratio 40 (6-26); Blood Urea Nitrogen 43 mg/dL (7-20); Carbon Dioxide 27 mEq/L (19-29); Chloride 100 mEq/L (98-109); Glucose 266 mg/dL (70-99); Osmolality,Calculated 304 (280-300); Potassium 4.8 mEq/L (3.5-4.5); Sodium 137 mEq/L (136-145); eGFR For African Americans > 60 (> 60); eGFR For Non-African Americans 53 (> 60)
[2016-02-23 13:51] LABS: Thyroid Stimulating Hormone 0.088 mcIU/mL (0.350-4.840)
--- NOTE | 2016-02-23 16:56 | Internal Med Progress Note ---
Date of Encounter: 02/23/16 Time of Encounter: 16:54 - Assessment and plan (1) Acute on chronic respiratory failure Current Visit: No Status: Acute Assessment and plan: ARF with hypoxia in the setting of COPD exacerbation. Patient currently saturating well on 4 l NC will trasition to oral steroids today. Continue duonebs and home symbicort. antibiotics has been stopped, as no pneumonia on the CXR, COPD exacerbation 2/2 viral infection. positive for browning virus. Qualifiers: Respiratory failure complication: hypoxia Qualified Code(s): J96.21 - Acute and chronic respiratory failure with hypoxia (2) Acute exacerbation of chronic obstructive airways disease Current Visit: No Status: Acute Assessment and plan: possible 2/2 viral infection browning virus, change to oral prednisone today. duonebs, symbicort . leucocytosis may be 2//2 steroids. (3) Diabetes mellitus Current Visit: No Status: Chronic Qualifiers: Qualified Code(s): E11.9 - Type 2 diabetes mellitus without complications (4) Hyperlipidemia Current Visit: No Status: Chronic Qualifiers: Hyperlipidemia type: unspecified Qualified Code(s): E78.5 - Hyperlipidemia , unspecified (5) Hypertension Current Visit: No Status: Chronic Qualifiers: Hypertension type: essential hypertension Qualified Code(s): I10 - Essential (primary) hypertension (6) Tachycardia Current Visit: Yes Status: Acute Assessment and plan: appears to be restless and reports that she is always tachycardic and that her HR always remains high. EKG shows sinus tachycardia. cheked TSH which is low at 0.088, will check free T3 and T4. may need to add levothyroxine if hyperthyroid as she is symptomatic. have added metoprolol now that has controlled the HR for now. - Time Spent With Patient 25 - 35 minutes - Subjective Interval history: denies chest pain ,alert and awake and oriented x3, appears very restless and keeps putting her BIPAP mask on by herself, saturating 93% on 4 l of oxygen she is self pay - Constitutional Vitals: Temp Pulse Resp BP Pulse Ox 98.3 F 82 18 111/71 98 02/23/16 16:09 02/23/16 16:09 02/23/16 16:09 02/23/16 16:09 02/23/16 16:09 General appearance: Present: cooperative, A&O X 3, answers questions appropriately Exam: neck-s upple chest- mild wheezing, no creptns cvs-s1 and s2,no m/r/g abd-soft, non tender, bs are present ext-no edema neuro- alert and awake, no focal neuro deficits Internal Medicine: Result - Labs CBC & Chem 7: 02/23/16 13:07 02/23/16 13:07 Labs: Short CBC 02/23/16 Range/Units 13:07 WBC 20.8 H D (4.3-11.1) K/mcL Hgb 14.6 (11.5-15.4) g/dL Hct 43.9 (35.3-44.9) % Plt Count 368 (140-400) K/mcL Neutrophils # 17.7 H (1.6-8.9) K/mcL BMP 02/23/16 13:07 Sodium 137 Potassium 4.8 H Chloride 100 Carbon Dioxide 27 BUN 43 H D Creatinine 1.07 Glucose 266 H Calcium 9.0 - ABG Interpretation ABG results: ABG ABG pH 7.29 pH Units (7.32-7.45) L 02/22/16 03:06 ABG pCO2 61 mmHg (35-45) H 02/22/16 03:06 ABG pO2 166 mmHg (85-104) H 02/22/16 03:06 ABG O2 Saturation 99 % (95-98) H 02/22/16 03:06 Consult Discharge Plan - Plan Referrals: Ruddy Jason MD [Primary Care Provider] - 03/02/16 11:45 am ()
[2016-02-23] MEDS: *HR* Heparin 5,000 UNIT/ML VIAL SQ SCH (21:05)
[2016-02-23] MEDS: Ondansetron ODT 4 MG TAB.RAPDIS SL PRN (23:30)
[2016-02-24 00:57] LABS: ABG Oxygen Saturation 88 % (95-98); ABG PCO2 63 mmHg (35-45); ABG PH 7.34 pH Units (7.32-7.45); ABG PO2 59 mmHg (85-104); ABG TCO2 35.9 mEq/L (20-26); Blood Gas FiO2 28 %
[2016-02-24] MEDS ORDERED: *HR* LORazepam 1 MG TABLET PO ONE (01:12)
[2016-02-24] MEDS: Ipratropium/Albuterol Neb 3 ML IH SCH ×5 (03:46→20:16)
[2016-02-24] MEDS: cloNIDine HCl 0.1 MG TABLET PO SCH ×4 (05:58→23:39)
[2016-02-24] MEDS: Losartan/HCTZ 50-12.5 TABLET PO SCH (07:56)
[2016-02-24] MEDS: Aspirin Enteric Coated 81 MG Tablet PO SCH (07:56)
[2016-02-24] MEDS: predniSONE 20 MG TABLET PO SCH (07:56)
[2016-02-24] MEDS: *HR* Heparin 5,000 UNIT/ML VIAL SQ SCH ×2 (07:57→21:36)
[2016-02-24] MEDS: Insulin LISPRO 300 UNITS/3 ML VIAL SQ SCH ×4 (07:57→21:39)
[2016-02-24 08:01] LABS: Triiodothyronine (T3) Free 1.96 pg/mL (1.71-3.71)
[2016-02-24 09:06] LABS: Hematocrit 42.3 % (35.3-44.9); Mean Corpuscular HGB Conc 33.1 g/dL (31.6-35.5); Mean Corpuscular Hemoglobin 31.7 pg (28.0-33.3); Mean Corpuscular Volume 95.9 fL (83.0-100.0); Mean Platelet Volume 9.7 fL (9.4-12.4); Nucleated Red Blood Cells 0.1 /100 WBC (0); Platelet Count 324 K/mcL (140-400); Red Blood Count 4.41 M/mcL (3.82-4.97); Red Cell Distribution Width 14.4 % (11.5-14.5)
[2016-02-24 09:15] LABS: BUN/Creatinine Ratio 52 (6-26); Blood Urea Nitrogen 41 mg/dL (7-20); Calcium 9.1 mg/dL (8.6-10.8); Carbon Dioxide 32 mEq/L (19-29); Chloride 98 mEq/L (98-109); Glucose 130 mg/dL (70-99); Osmolality,Calculated 298 (280-300); Potassium 4.1 mEq/L (3.5-4.5); Sodium 138 mEq/L (136-145); eGFR For African Americans > 60 (> 60); eGFR For Non-African Americans > 60 (> 60)
[2016-02-24 09:32] LABS: Eosinophils # 0.3 K/mcL (0.0-0.6); Lymphocytes # 6.1 K/mcL (0.6-4.6); Monocytes # 0.3 K/mcL (0.0-1.3)
[2016-02-24 09:33] LABS: Platelet Estimate Normal (Normal)
[2016-02-24] MEDS: Budesonide/Formoterol 160/4.5 MDI IH SCH ×2 (11:07→20:16)
[2016-02-24] MEDS ORDERED: Acetaminophen 325 MG TABLET PO PRN (15:16)
--- NOTE | 2016-02-24 15:38 | Internal Med Progress Note ---
Date of Encounter: 02/24/16 Time of Encounter: 15:35 - Assessment and plan (1) Acute on chronic respiratory failure Current Visit: No Status: Acute Assessment and plan: ARF with hypoxia in the setting of COPD exacerbation. Patient currently saturating well on 4 l NC Steroids have been changed to oral.. Continue duonebs and home symbicort. antibiotics has been stopped, as no pneumonia on the CXR, COPD exacerbation 2/2 viral infection. positive for browning virus. She needs BiPAP qualification test, we will perform tonight, will add ativan for anxiety. Qualifiers: Respiratory failure complication: hypoxia Qualified Code(s): J96.21 - Acute and chronic respiratory failure with hypoxia (2) Acute exacerbation of chronic obstructive airways disease Current Visit: No Status: Acute Assessment and plan: possible 2/2 viral infection browning virus, change to oral prednisone. duonebs, symbicort . leucocytosis may be 2//2 steroids. (3) Diabetes mellitus Current Visit: No Status: Chronic Qualifiers: Qualified Code(s): E11.9 - Type 2 diabetes mellitus without complications (4) Hyperlipidemia Current Visit: No Status: Chronic Qualifiers: Hyperlipidemia type: unspecified Qualified Code(s): E78.5 - Hyperlipidemia , unspecified (5) Hypertension Current Visit: No Status: Chronic Qualifiers: Hypertension type: essential hypertension Qualified Code(s): I10 - Essential (primary) hypertension (6) Tachycardia Current Visit: Yes Status: Acute Assessment and plan: appears to be restless and reports that she is always tachycardic and that her HR always remains high. EKG shows sinus tachycardia. cheked TSH which is low at 0.088, free t4 and t3 is normal which goes for subclinical hypothyroidism. have added metoprolol now that has controlled the HR for now. - Time Spent With Patient 25 - 35 minutes - Subjective Interval history: denies chest pain ,alert and awake and oriented x3, appears very restless , was not on o2 cannula when she was checked, did walk test and she de saturated to 88 % on 2 l of NC. discussed with daughter about adding ativan and says that will possible help. she was orderded BIPAP qualify test last night, but she did not keep the pulse ox in and was constantly pullling it off . - Constitutional Vitals: Temp Pulse Resp BP Pulse Ox 98.4 F 91 19 130/72 93 L 02/24/16 15:07 02/24/16 15:07 02/24/16 15:07 02/24/16 15:07 02/24/16 15:07 General appearance: Present: cooperative, A&O X 3, answers questions appropriately Exam: neck-supple chest- b/l occ wheezing, no creptns cvs-s1 and s2, no mr//g abd-soft, non tender, bs are present ext-josefina germán Internal Medicine: Result - Labs CBC & Chem 7: 02/24/16 08:47 02/24/16 08:47 Labs: Short CBC 02/24/16 Range/Units 08:47 WBC 16.0 H (4.3-11.1) K/mcL Hgb 14.0 (11.5-15.4) g/dL Hct 42.3 (35.3-44.9) % Plt Count 324 (140-400) K/mcL Neutrophils # 9.0 H (1.6-8.9) K/mcL BMP 02/24/16 08:47 Sodium 138 Potassium 4.1 Chloride 98 Carbon Dioxide 32 H BUN 41 H Creatinine 0.79 Glucose 130 H Calcium 9.1 - ABG Interpretation ABG results: ABG ABG pH 7.34 pH Units (7.32-7.45) 02/24/16 00:50 ABG pCO2 63 mmHg (35-45) H 02/24/16 00:50 ABG pO2 59 mmHg (85-104) L 02/24/16 00:50 ABG O2 Saturation 88 % (95-98) L 02/24/16 00:50 Consult Discharge Plan - Plan Referrals: Ruddy Jason MD [Primary Care Provider] - 03/02/16 11:45 am ()
[2016-02-24] MEDS: *HR* LORazepam 1 MG TABLET PO PRN (18:52)
[2016-02-25] MEDS: *HR* LORazepam 1 MG TABLET PO PRN ×2 (01:01→11:53)
[2016-02-25] MEDS: Ipratropium/Albuterol Neb 3 ML IH SCH ×5 (01:05→15:39)
[2016-02-25] MEDS: cloNIDine HCl 0.1 MG TABLET PO SCH ×2 (05:57→11:42)
[2016-02-25] MEDS: Budesonide/Formoterol 160/4.5 MDI IH SCH (08:05)
[2016-02-25 08:19] LABS: Hematocrit 41.6 % (35.3-44.9); Hemoglobin 13.8 g/dL (11.5-15.4); Mean Corpuscular HGB Conc 33.2 g/dL (31.6-35.5); Mean Corpuscular Hemoglobin 31.3 pg (28.0-33.3); Mean Corpuscular Volume 94.3 fL (83.0-100.0); Mean Platelet Volume 9.7 fL (9.4-12.4); Nucleated Red Blood Cells 0.2 /100 WBC (0); Platelet Count 299 K/mcL (140-400); Red Blood Count 4.41 M/mcL (3.82-4.97); Red Cell Distribution Width 14.3 % (11.5-14.5)
[2016-02-25 08:45] LABS: BUN/Creatinine Ratio 45 (6-26); Blood Urea Nitrogen 32 mg/dL (7-20); Calcium 8.9 mg/dL (8.6-10.8); Carbon Dioxide 39 mEq/L (19-29); Chloride 96 mEq/L (98-109); Glucose 259 mg/dL (70-99); Osmolality,Calculated 304 (280-300); Potassium 3.9 mEq/L (3.5-4.5); Sodium 139 mEq/L (136-145); eGFR For African Americans > 60 (> 60); eGFR For Non-African Americans > 60 (> 60)
[2016-02-25 08:46] LABS: Hypersegmented Neutrophils Present (Not Present); Lymphocytes # 4.2 K/mcL (0.6-4.6); Monocytes # 0.5 K/mcL (0.0-1.3); Neutrophils # 6.6 K/mcL (1.6-8.9); Platelet Estimate Normal (Normal)
[2016-02-25 08:47] LABS: Reactive Lymphocytes Present (Not Present)
[2016-02-25 08:51] LABS: Spherocytes 1+ (Not Present)
[2016-02-25] MEDS: predniSONE 20 MG TABLET PO SCH (09:54)
[2016-02-25] MEDS: Losartan/HCTZ 50-12.5 TABLET PO SCH (09:54)
[2016-02-25] MEDS: Aspirin Enteric Coated 81 MG Tablet PO SCH (09:54)
[2016-02-25] MEDS: *HR* Heparin 5,000 UNIT/ML VIAL SQ SCH (09:55)
[2016-02-25] MEDS: Insulin LISPRO 300 UNITS/3 ML VIAL SQ SCH ×2 (09:55→11:42)
[2016-02-25 12:15] VITALS: BP 116/65
--- NOTE | 2016-02-25 12:49 | Discharge Summary ---
Date of Encounter: 02/25/16 Time of Encounter: 12:35 - Discharge Diagnosis (1) Acute on chronic respiratory failure Priority: Primary Status: Acute Qualifiers: Respiratory failure complication: hypoxia Qualified Code(s): J96.21 - Acute and chronic respiratory failure with hypoxia (2) Acute exacerbation of chronic obstructive airways disease Priority: Primary Status: Acute (3) Diabetes mellitus Priority: Secondary Status: Chronic Qualifiers: Qualified Code(s): E11.9 - Type 2 diabetes mellitus without complications (4) Hyperlipidemia Priority: Secondary Status: Chronic Qualifiers: Hyperlipidemia type: unspecified Qualified Code(s): E78.5 - Hyperlipidemia , unspecified (5) Hypertension Priority: Secondary Status: Chronic Qualifiers: Hypertension type: essential hypertension Qualified Code(s): I10 - Essential (primary) hypertension (6) Tachycardia Priority: Secondary Status: Acute - Discharge Medications Prescriptions: GuaiFENesin ER [Mucinex] 600 mg PO BID 30 Days LORazepam [Ativan] 1 mg PO Q6H PRN #30 tablet PRN Reason: Anxiety PredniSONE 10 mg PO DAILY #65 tablet Home Medications: Amlodipine Besylate [Norvasc] 10 mg PO QAM 09/25/14 [History] Budesonide/Formoterol 160/4.5 [Symbicort] 2 puff IH BID 09/25/14 [History] Aspirin Enteric Coated [Aspirin EC] 81 mg PO QAM 11/03/14 [History] CloNIDine HCl 0.3 mg PO Q6HR #270 tablet 11/07/14 [Rx] Ipratropium/Albuterol Neb [Duoneb] 3 ml IH Q4HR PRN 02/10/15 [History] Metformin [Glucophage] 1,000 mg PO BID 02/10/15 [History] Pantoprazole Sodium [Protonix] 40 mg PO BID 02/10/15 [History] Atorvastatin [Lipitor] 40 mg PO DAILY 05/03/15 [History] Glimepiride [Amaryl] 4 mg PO DAILY 05/03/15 [History] Losartan/Hydrochlorothiazide [Losartan-Hctz 100-25 mg Tab] 1 tab PO DAILY [History] Aclidinium [place] [Tudorza Pressair] 1 puff IH BID 02/20/16 [History] Albuterol Sulfate [Proair Hfa] 1 - 2 puff IH Q4-6H PRN 02/20/16 [History] Cyclobenzaprine HCl 10 mg PO TID PRN 02/20/16 [History] Meclizine [Antivert] 25 mg PO TID PRN 02/20/16 [History] Roflumilast [Daliresp] 500 mcg PO DAILY 02/20/16 [History] GuaiFENesin ER [Mucinex] 600 mg PO BID 30 Days 02/25/16 [Rx] LORazepam [Ativan] 1 mg PO Q6H PRN #30 tablet 02/25/16 [Rx] PredniSONE 10 mg PO DAILY #65 tablet 02/25/16 [Rx] Allergies/Adverse Reactions: Allergies Penicillins Allergy (Unknown, Verified 02/17/16 10:18) See Comments states can take Keflex. NSAIDS (Non-Steroidal Anti-Inflamma Allergy (Verified 02/17/16 10:18) See Comments tramadol Adverse Reaction (Verified 02/17/16 10:18) Nausea Date of admission: 02/20/16 03:18 Primary care physician: Phan Simmons Consults: 02/20/16 05:32 Consult to Bilingual Account Manager [CONS] Routine Reason for SW Consult: concern for patient to afford medication at home 02/20/16 11:01 Consult to Bilingual Account Manager [CONS] Stat Reason for SW Consult: Issue about self-pay (but pt has insurance loaded in system?). Discharging clinician: Saleem Armas Anticipated date of discharge: 02/25/16 - Patient Status Disposition: Transfer SNF Condition: Fair Functional capacity at discharge: independent ambulation Overall status at discharge: patient is back to baseline - Discharge Instructions Instructions: Diabetes Mellitus Type 2 in Adults (DC), Chronic Obstructive Pulmonary Disease (DC), Chronic Hypertension (DC) Follow Up With: Ruddy Jason MD [Primary Care Provider] - 03/02/16 11:45 am () - Diet and Activity Activity: resume usual activities as tolerated Diet: advance to your usual diet Interval History: Ms. Ren is a 56 year old female presented to the ED for shortness of breath for approximately 5 days ago. Patient seen and evaluated on Tuesday in the ED and was diagnosed with COPD exacerbation. Patient failed outpatient management with prednisone, Levaquin, and duonebs. Patient was taking her nebulizer treatments every 4 hours at home. On exam patient was on BiPAP mask and kept responses short and direct. She did note that the ativan she was given was making her tired. Patient admits to chronic neck and back pain and states she currently has a headache. Patient also notes recent diarrhea and vomiting that has currently resolved. Patient denies any dizziness, chest pain, abdominal pain , syncope, numbness, tingling, melena, dysuria, or any signs of blood in stool/ vomit/urine. In the ED patient expressed concern that she is self-pay and initially refused workup and further treatments, until she continued to be short of breath after receiving breathing treatments. Hospital course: Patient was admitted for ARF with hypoxia in the setting of COPD exacerbation. She was requiring 6 LPM via BiPAP mask and also intermittent BiPAP even increased work of breathing. Initial ABG showed mild respiratory acidosis and CO2 retention. She has positive coronavirus. She was started on IV methylprednisone, given nebs and Symbicort. She was also initially started on Levaquin for COPD exacerbation. She improved gradually, however she remained very anxious and tachypneic. Steroids were gradually tapered, antibiotics were stopped given viral infection , she was checked for BiPAP qualification and she did qualify for BiPAP. We did 6 minute walk test and she did not drop on 2 L of nasal cannula.her TSH with t3 and t4 was checked, tsh was low however free t3 and t4 was normal, hence no treatment for subclinical hyperthyroidism. She is being discharged today in stable condition, she will need oxygen at 2 L and BiPAP as required at home. She is being discharged with tapering doses of steroids. Time spent discussing smoking cessation with patient: more than 10 minutes - Time Spent with Patient Total time spent providing and/or coordinating discharge services: Greater than 30 minutes - Constitutional Vitals: Temp Pulse Resp BP Pulse Ox 98.9 F 109 18 116/65 99 02/25/16 12:12 02/25/16 12:12 02/25/16 12:12 02/25/16 12:12 02/25/16 12:12 General appearance: Present: cooperative, A&O X 3, answers questions appropriately Exam: General appearance: Present: cooperative, mild distress, A&O X 3, answers questions appropriately - Head Head exam: Present: atraumatic, normocephalic - Eye Eye exam: Present: EOMI, conjuntiva pink, sclera anicteric - Neck Neck exam general surgery: Present: full ROM, tenderness (states chronic neck pain), supple, trachea midline. Absent: lymphadenopathy, nuchal rigidity - Respiratory Respiratory exam: occ wheezing Absent: chest wall tenderness, rales, rhonchi - Cardiovascular Cardiovascular exam: Present: +S1, +S2, tachycardia. Absent: diastolic murmur, gallop, rubs, systolic murmur - GI/Abdominal GI/Abdominal exam: Present: normal bowel sounds, soft, no peritoneal signs. Absent: distended, guarding, tenderness - Extremities Exam Extremities exam: Present: warm, radial pulses palpable and symetrical (1+ pulses b/l). Absent: calf tenderness, cyanotic, pedal edema - Neurological Exam Neurological exam: Present: alert, oriented X3, no focal deficits. Absent: facial droop, speech deficit - Skin Skin exam: Present: dry, intact
== END 2016-02-25 17:26 | DRG 133 ==
LOC: EMEROO 22:35 → 2ANU 02-20 03:18
PROVIDERS: ADMIT Family Medicine; ATTEND Internal Medicine Endocrinology, Diabetes & Metabolism

== ENCOUNTER 2016-05-16 00:43 | Inpatient (IN) ==
[2016-05-16 01:44] LABS: Basophils % 0.2 %; Eosinophils % 0.1 %; Hematocrit 44.8 % (35.3-44.9); Hemoglobin 14.7 g/dL (11.5-15.4); Immature Granulocytes % 1.6 % (0-4); Lymphocytes # 1.1 K/mcL (0.6-4.6); Lymphocytes % 6.6 %; Mean Corpuscular HGB Conc 32.8 g/dL (31.6-35.5); Mean Corpuscular Volume 94.5 fL (83.0-100.0); Mean Platelet Volume 10.5 fL (9.4-12.4); Monocytes # 0.9 K/mcL (0.0-1.3); Monocytes % 5.6 %; Neutrophils # 13.6 K/mcL (1.6-8.9); Nucleated Red Blood Cells 0.1 /100 WBC (0); Platelet Count 306 K/mcL (140-400); Red Blood Count 4.74 M/mcL (3.82-4.97); Red Cell Distribution Width 15.4 % (11.5-14.5); Segmented Neutrophils % 85.9 %
[2016-05-16] MEDS ORDERED: methylPREDNISolone 125 MG/2 ML VIAL IVP ONE (01:49)
[2016-05-16] MEDS ORDERED: Ipratropium/Albuterol Neb 3 ML IH ONE (01:49)
--- NOTE | 2016-05-16 01:53 | Emergency Department Note ---
Disposition Clinical Impression: Community acquired pneumonia, COPD exacerbation Disposition: Admitted As Inpatient Condition: Fair Referrals: NO,PCP [Primary Care Provider] - Forms: ED Satisfaction Letter Time of Disposition: 04:18 General Adult HPI - General Chief complaint: ED Shortness of Breath/Dyspnea Stated complaint: LESTER Time Seen by Provider: 05/16/16 01:44 Source: patient, family Limitations: no limitations Nursing Notes Reviewed: Yes Vital Signs Reviewed: Yes - History of Present Illness HPI Narrative: History of present illness: 56-year-old female smoker COPD home O2 dependent presents with 1 week increasing shortness of breath and cough. has been diagnosed with the flu. Patient had her flu shot. Patient says things much worse over the past day with increasing shortness of breath chest discomfort and cough with some mild sputum. Patient has myalgias and fatigue. Denies vomiting diarrhea dysuria headache photophobia or skin rash. Pain Scale: 7 - Related Data Home Medications Medication Instructions Recorded Confirmed Amlodipine Besylate [Norvasc] 10 mg PO QAM 09/25/14 02/20/16 Budesonide/Formoterol 160/4.5 2 puff IH BID 09/25/14 02/20/16 [Symbicort] Aspirin Enteric Coated [Aspirin EC] 81 mg PO QAM 11/03/14 02/20/16 Ipratropium/Albuterol Neb [Duoneb] 3 ml IH Q4HR PRN 02/10/15 02/20/16 Metformin [Glucophage] 1,000 mg PO BID 02/10/15 02/20/16 Pantoprazole Sodium [Protonix] 40 mg PO BID 02/10/15 02/20/16 Atorvastatin [Lipitor] 40 mg PO DAILY 05/03/15 02/20/16 Glimepiride [Amaryl] 4 mg PO DAILY 05/03/15 02/20/16 Losartan/Hydrochlorothiazide 1 tab PO DAILY 05/03/15 02/20/16 [Losartan-Hctz 100-25 mg Tab] Aclidinium [place] [Tudorza 1 puff IH BID 02/20/16 02/20/16 Pressair] Albuterol Sulfate [Proair Hfa] 1 - 2 puff IH Q4-6H PRN 02/20/16 02/20/16 Cyclobenzaprine HCl 10 mg PO TID PRN 02/20/16 02/20/16 Meclizine [Antivert] 25 mg PO TID PRN 02/20/16 02/20/16 Roflumilast [Daliresp] 500 mcg PO DAILY 02/20/16 02/20/16 Previous Rx's Medication Instructions Recorded CloNIDine HCl 0.3 mg PO Q6HR #270 tablet 11/07/14 GuaiFENesin ER [Mucinex] 600 mg PO BID 30 Days 02/25/16 LORazepam [Ativan] 1 mg PO Q6H PRN #30 tablet 02/25/16 PredniSONE 10 mg PO DAILY #65 tablet 02/25/16 Albuterol Sulfate [Albuterol 1 puff IH Q6HR #1 hfa.aer.ad 03/17/16 Inhaler] Azithromycin [Zithromax] 250 mg PO Q24H #4 tablet 03/17/16 Cephalexin [Keflex] 500 mg PO BID #20 capsule 03/17/16 Guaifenesin [Mucinex] 600 mg PO BID #20 tab.er.12h 03/17/16 PredniSONE [Prednisone] 50 mg PO DAILY #4 tablet 03/17/16 Ipratropium/Albuterol Neb [Duoneb] 3 ml IH Q6HR PRN #90 vial.neb 05/02/16 PredniSONE 20 mg PO DAILY #5 tablet 05/02/16 Allergies Allergy/AdvReac Type Severity Reaction Status Date / Time Penicillins Allergy Unknown See Verified 05/16/16 00:48 Comments NSAIDS (Non-Steroidal Allergy See Verified 05/16/16 00:48 Anti-Inflamma Comments tramadol AdvReac Nausea Verified 05/16/16 00:48 All systems ED: reviewed and negative except as stated. Constitutional: Reports: fever, chills Cardiovascular: Reports: dyspnea on exertion Respiratory: Reports: cough, dyspnea, wheezes, sputum production Gastrointestinal: Reports: nausea Past Medical History - Past Medical History Attestation: Yes The following information was validated with the patient. 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, ectopic , other - Social History Smoking Status: Current every day smoker Smokeless Tobacco Status: No Alcohol use: Reports: none Drug use: Reports: none Physical Exam - General Limitations: no limitations General appearance: alert, in distress - Head Head exam: atraumatic, normocephalic - Eye Eye exam: Present: normal appearance, PERRL, EOMI - ENT ENT exam: normal exam, normal oropharynx - Neck Neck exam: Present: normal inspection, full ROM, trachea midline - Chest Chest inspection: Present: normal inspection, symmetric chest wall rise - Respiratory Respiratory exam: Present: respiratory distress, wheezes, prolonged expiratory phase - Cardiovascular Cardiovascular exam: Present: normal rhythm, tachycardia - Abdominal Exam Abdominal exam: Present: soft, Non-Tender - Extremities Exam Extremities exam: Present: normal inspection, full ROM - Expanded Lower Extremity Exam Neurovascular/Tendon exam: Present: normal capillary refill Gait: observed and normal - Neurological Exam Neurological exam: Present: alert, oriented X3, CN II-XII intact - Psychiatric Psychiatric exam: Present: normal affect, normal mood - Skin Skin exam: Present: warm, dry, intact Course - Reevaluation(s) Reevaluation #1: Patient bilateral expiratory wheezes. Patient will get DuoNeb IV steroids chest x-ray troponin and a flu swab. Provided 45 minutes of critical care service this patient. Disposition pending. Time: 01:54 Reevaluation #2: Workup is in progress. CBC shows a slightly elevated white count of 15 but no left shift. Chemistry panel shows a hyperglycemia and elevated creatinine but otherwise no acute changes otherwise. Chest x-ray is pending. Flu swab is pending. DuoNeb treatments are in process. Patient stable Time: 02:38 Reevaluation #3: Despite 3 DuoNeb treatments patient says she is "feels horrible. She has no elevated white count still wheezing and chest x-ray pain lateral shows left lower lobe infiltrate consistent with possible pneumonia. Patient get IV Levaquin and will be admitted. Hospitalist paged. Time: 03:50 - Consultations Consultation #1: Discussed the case with the hospitalist. Patient accepted for admission in stable condition. He requested a set of blood cultures which I ordered a lactic acid which I ordered. Patient admitted in stable condition. Time: 04:18 Vital Signs Temperature 97.3 F L 05/16/16 00:43 Pulse Rate 131 05/16/16 00:43 Respiratory Rate 20 05/16/16 00:43 Blood Pressure 181/94 05/16/16 00:43 O2 Sat by Pulse Oximetry 93 L 05/16/16 00:43 Temperature 97.3 F L 05/16/16 00:43 Pulse Rate 142 05/16/16 02:57 Respiratory Rate 22 05/16/16 02:57 Blood Pressure 188/120 05/16/16 02:57 O2 Sat by Pulse Oximetry 93 L 05/16/16 02:57 Oxygen Delivery Oxygen Delivery Nasal Cannula Medical Decision Making - Medical Records Medical records reviewed: Yes I reviewed the patient's medical records. - Lab Data Lab results reviewed: Yes I reviewed the patient's lab results. Result diagrams: 05/16/16 01:29 05/16/16 01:29 Lab Results 05/16/16 05/16/16 05/16/16 Range/Units 01:29 01:29 01:29 WBC 15.8 H (4.3-11.1) K/mcL RBC 4.74 (3.82-4.97) M/mcL Hgb 14.7 (11.5-15.4) g/dL Hct 44.8 (35.3-44.9) % MCV 94.5 (83.0-100.0) fL MCH 31.0 (28.0-33.3) pg MCHC 32.8 (31.6-35.5) g/dL RDW 15.4 H (11.5-14.5) % Plt Count 306 (140-400) K/mcL MPV 10.5 (9.4-12.4) fL Immature Gran % 1.6 (0-4) % Seg Neutrophils % 85.9 % Lymphocytes % 6.6 % Monocytes % 5.6 % Eosinophils % 0.1 % Basophils % 0.2 % Neutrophils # 13.6 H (1.6-8.9) K/mcL Lymphocytes # 1.1 (0.6-4.6) K/mcL Monocytes # 0.9 (0.0-1.3) K/mcL Eosinophils # 0.0 (0.0-0.6) K/mcL Basophils # 0.0 (0.0-0.2) K/mcL Nucleated RBCs/100 WBC 0.1 H (0) /100 WBC Sodium 142 (136-145) mEq/L Potassium 3.5 (3.5-4.5) mEq/L Chloride 104 (98-109) mEq/L Carbon Dioxide 24 (19-29) mEq/L BUN 22 H (7-20) mg/dL Creatinine 0.78 (0.57-1.11) mg/dL Est GFR ( Amer) > 60 (> 60) Est GFR (Non-Af Amer) > 60 (> 60) BUN/Creatinine Ratio 28 H (6-26) Glucose 333 H (70-99) mg/dL Calculated Osmolality 310 H (280-300) Calcium 9.4 (8.6-10.8) mg/dL Troponin I 0.00 (0-0.03) ng/mL - Radiology Data Radiology results reviewed: Yes I reviewed the patient's radiology results. - EKG Data EKG #1 EKG attestation: Yes I reviewed and interpreted this EKG. EKG results narrative: EKG interpreted without cardiology shows sinus tachycardia at 123 bpm. Normal AR, QRS, QT corrected. Nonspecific ST-T changes. However no acute ischemic changes when compared to an old EKG 05/02/2016.
[2016-05-16 01:59] LABS: BUN/Creatinine Ratio 28 (6-26); Blood Urea Nitrogen 22 mg/dL (7-20); Calcium 9.4 mg/dL (8.6-10.8); Carbon Dioxide 24 mEq/L (19-29); Chloride 104 mEq/L (98-109); Glucose 333 mg/dL (70-99); Osmolality,Calculated 310 (280-300); Potassium 3.5 mEq/L (3.5-4.5); Sodium 142 mEq/L (136-145); eGFR For African Americans > 60 (> 60); eGFR For Non-African Americans > 60 (> 60)
[2016-05-16] MEDS ORDERED: predniSONE 20 MG TABLET PO ONE (02:59)
[2016-05-16] MEDS ORDERED: Levofloxacin 750 MG/150 ML 750 MG/150 ML BAG IVPB ONE (03:51)
[2016-05-16] MEDS ORDERED: cloNIDine HCl 0.1 MG TABLET PO ONE (04:24)
[2016-05-16] MEDS ORDERED: *HR* Morphine 2 MG/ML SYRINGE IVP ONE (06:03)
[2016-05-16] MEDS ORDERED: 0.9 % Sodium Chloride 500 ML IVC ONE (07:02)
[2016-05-16] MEDS ORDERED: *HR* LORazepam 2 MG/ML VIAL ONE (08:19)
[2016-05-16] MEDS ORDERED: *HR* LORazepam 2 MG/ML VIAL IVP ONE (08:56)
[2016-05-16] MEDS ORDERED: *HR* Midazolam HCl 5 MG/5 ML VIAL IVP ONE (08:56)
--- NOTE | 2016-05-16 09:13 | Event Note ---
Date of Encounter: 05/16/16 Time of Encounter: 15:00 I was called by the patient's nurse to evaluate Nora emergently due to acute distress. On arrival and the patient was found to be in respiratory distress, sitting up in bed in a tripod position, tachipneic, extremely anxious, lung exam reveals diminished breath sounds throughout with expiratory wheezes. Heart this tachycardic S1 and S2. Plan: COPD exacerbation with acute respiratory failure and respiratory distress needing emergent endotracheal intubation and mechanical ventilation. I have taken the patient to the ICU where she was emergently intubated and the care was transferred to the critical care team. I discussed the case with Dr. Caro.
[2016-05-16] MEDS ORDERED: Naloxone 0.4 MG/ML INJ IVP PRN (09:34)
[2016-05-16] MEDS ORDERED: Lacri-Lube 3.5 GM TUBE BOTH EYES PRN (09:47)
[2016-05-16 10:06] LABS: ABG Base Excess -0.3 mEq/L (-2.0 to 3.0); ABG HCO3 27.2 mEQ/L (21-27); ABG Oxygen Saturation 100 % (95-98); ABG PCO2 54 mmHg (35-45); ABG PH 7.31 pH Units (7.32-7.45); ABG PO2 346 mmHg (85-104); ABG TCO2 28.9 mEq/L (20-26); Blood Gas FiO2 70 %; Blood Gas Respiration Rate 10; Blood Gas VT 580 cc
--- NOTE | 2016-05-16 10:14 | Pulmonology History & Physical ---
<Wilder Brewster - Last Filed: 05/16/16 10:32> Date of Encounter: 05/16/16 Time of Encounter: 10:14 Assessment and Plan (1) Acute on chronic respiratory failure Current visit: Yes Status: Acute 56-year-old female history of chronic tobacco use, COPD, on home oxygen and BiPAP presented to ER with severe shortness of breath, productive cough. Patient was admitted to the floor and found by the hospitalist to be in acute respiratory distress, tripod position, tachypneic. Patient was emergently intubated and put on mechanical ventilation. was diagnosed with influenza history. Chest x-ray shows some atelectasis with bilateral costophrenic angle blunting. 2nd to COPD exacerbation, possible influenza/PNA Blood cultures and sputum cultures sent Respiratory span O and rapid influenza Start bronchodilators, Solu-Medrol, Levaquin Continue home Symbicort. Intubation sedation: propofol and fentanyl Qualifiers: Respiratory failure complication: hypoxia and hypercapnia Qualified Code(s) : J96.21 - Acute and chronic respiratory failure with hypoxia; J96.22 - Acute and chronic respiratory failure with hypercapnia (2) COPD exacerbation Current visit: Yes Status: Acute Presented with worsening cough, productive sputum and worsening dyspnea. We will start patient on duo nebs, Solu-Medrol, Levaquin, and continue home Symbicort. (3) Influenza Current visit: Yes Status: Suspected Patient's diagnosed with influenza yesterday. We will send rapid influenza for analysis. (4) Sinus tachycardia Current visit: Yes Status: Acute Patient presented with sinus tachycardia rate 150 and now decreased to 130, confirmed by EKG. Likely secondary to stress response for acute respiratory distress. Hgb is 14.7 and stable. We will continue to monitor (5) History of tobacco abuse Current visit: Yes Status: Chronic Patient is a long history of tobacco use. According to daughter patient has tried to quit multiple times without success. W/o cessation of smoking patients quality of life and respiratory status will continue to deteriorate. (6) DVT prophylaxis Current visit: Yes Status: Acute heparin SQ (7) Hypertension Current visit: Yes Status: Chronic controlled. will continue home clonidine to prevent reflex hypertension. Qualifiers: Hypertension type: essential hypertension Qualified Code(s): I10 - Essential (primary) hypertension (8) Diabetes mellitus Current visit: Yes Status: Chronic Patient last HgA1c was 7.2. Q6H accuchecks Q6H high dose sliding scale. 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 Ren is a 56 year old female history of hypertension, diabetes mellitus 2, COPD, gastric ulcers, tobacco abuse, hyperlipidemia presented to ER with worsening shortness of breath, productive cough. Patient uses oxygen and BiPAP at home. Patient's was diagnosed with flu yesterday. Initially patient was transferred from the ER to the floor where she was found to be in car parked position, anxious and respiratory distress, tachycardic. Patient was emergently intubated and started on mechanical ventilation. Past Med Surg Social Fam HX - Past Medical History Medical history: COPD, diabetes, GERD, hyperlipidemia, hypertension, renal disease, other (Gastric ulcers) Psychiatric history: no psych history - Past Surgical History Surgical History: appendectomy, cholecystectomy, knee replacement, other - Social History Smoking Status: Current every day smoker Packs per day: 1 Smokeless Tobacco Status: No Alcohol use: none Drug use: none - Family History Father Family Member Ethnicity: Non- Living Status: Age at : 39 Cause of : Heart Hx Family Cardiac Disorders: Yes (atherrosclerosis) Mother Family Member Ethnicity: Non- Living Status: Still Living Hx Family Cardiac Disorders: Yes (Hypertension) Hx Family Respiratory Disorders: No Hx Family Cancer: No Hx Family GI Disorders: No Hx Family Endocrine Disorder: Yes (Diabetes mellitus) Hx Family Neuromuscular Disorders: No Hx Family Neurologic Disorders: No Hx Family HEENT Disorders: No Hx Family Autoimmune Disorders: No Medications and Allergies Amlodipine Besylate [Norvasc] 10 mg PO QAM 09/25/14 [History] Budesonide/Formoterol 160/4.5 [Symbicort] 2 puff IH BID 09/25/14 [History] Aspirin Enteric Coated [Aspirin EC] 81 mg PO QAM 11/03/14 [History] Metformin [Glucophage] 1,000 mg PO BID 02/10/15 [History] Pantoprazole Sodium [Protonix] 40 mg PO DAILY 02/10/15 [History] Glimepiride [Amaryl] 4 mg PO DAILY 05/03/15 [History] Losartan/Hydrochlorothiazide [Losartan-Hctz 100-25 mg Tab] 1 tab PO DAILY [History] Cyclobenzaprine HCl 10 mg PO TID PRN 02/20/16 [History] Ipratropium/Albuterol Neb [Duoneb] 3 ml IH Q6HR PRN #90 vial.neb 05/02/16 [Rx] Atorvastatin [Lipitor] 40 mg PO HS 05/16/16 [History] CloNIDine HCl [Clonidine HCl] 0.3 mg PO QID 05/16/16 [History] PredniSONE [Prednisone] See Taper PO AD 05/16/16 [History] Roflumilast [Daliresp] 500 mcg PO DAILY 05/16/16 [History] Allergies NSAIDS (Non-Steroidal Anti-Inflamma Allergy (Unknown, Verified 05/16/16 10:32) See Comments Listed on [facility] under allergies- Unknown Reaction Penicillins Allergy (Unknown, Verified 05/16/16 10:32) Hives lisinopril Adverse Reaction (Verified 05/16/16 10:32) Cough tramadol Adverse Reaction (Verified 05/16/16 00:48) Nausea ROS unobtainable: due to endotracheal tube, due to mental status All Systems: A 10-system review of systems was performed and is negative for pertinent findings except as documented above in the HPI. Physical Examination Vital Signs: Vital Signs, Last 4 Hours Temp Pulse Resp BP Pulse Ox 05/16/16 10:10 11 126/104 96 05/16/16 09:05 152 18 149/81 95 05/16/16 08:30 150 50 189/103 97 05/16/16 08:02 97.5 F L 138 26 226/113 93 L 05/16/16 08:00 24 240/140 General appearance: other (Acute distress) Eyes: nonicteric ENT: oropharynx moist Mallampati (class): 2 Neck: no lymphadenopathy, no JVD Effort: very labored (Tripod position) Auscultation: bilateral: diminished breath sounds, wheezes Cardiovascular: other (Sinus tachycardia) Gastrointestinal: normoactive bowel sounds, soft, non-tender, non-distended Integumentary: normal Extremities: no cyanosis, no edema, no clubbing unable to assess due to mental status Results - Laboratory Findings CBC and BMP: 05/16/16 01:29 05/16/16 01:29 ABG ABG pH 7.31 pH Units (7.32-7.45) L 05/16/16 09:56 ABG pCO2 54 mmHg (35-45) H 05/16/16 09:56 ABG pO2 346 mmHg (85-104) H 05/16/16 09:56 ABG O2 Saturation 100 % (95-98) H 05/16/16 09:56 Abnormal lab findings: Abnormal lab results WBC 15.8 K/mcL (4.3-11.1) H 05/16/16 01:29 RDW 15.4 % (11.5-14.5) H 05/16/16 01:29 Neutrophils # 13.6 K/mcL (1.6-8.9) H 05/16/16 01:29 Nucleated RBCs/100 WBC 0.1 /100 WBC (0) H 05/16/16 01:29 ABG pH 7.31 pH Units (7.32-7.45) L 05/16/16 09:56 ABG pCO2 54 mmHg (35-45) H 05/16/16 09:56 ABG pO2 346 mmHg (85-104) H 05/16/16 09:56 ABG HCO3 27.2 mEQ/L (21-27) H 05/16/16 09:56 ABG Total CO2 28.9 mEq/L (20-26) H 05/16/16 09:56 ABG O2 Saturation 100 % (95-98) H 05/16/16 09:56 BUN 22 mg/dL (7-20) H 05/16/16 01:29 BUN/Creatinine Ratio 28 (6-26) H 05/16/16 01:29 Glucose 333 mg/dL (70-99) H 05/16/16 01:29 POC Glucose 280 (58-89) H 05/16/16 08:45 Calculated Osmolality 310 (280-300) H 05/16/16 01:29 - Diagnostic Findings Chest x-ray: report reviewed U/S of Legs: report reviewed <Zainab Nelson - Last Filed: 05/16/16 12:59> History of Present Illness HPI: Ms. Ren is a 56 year old female All Systems: A 10-system review of systems was performed and is negative for pertinent findings except as documented above in the HPI. Physical Examination Vital Signs: Vital Signs, Last 4 Hours Temp Pulse Resp BP Pulse Ox 05/16/16 12:00 125 17 119/72 95 05/16/16 11:46 98.8 F 05/16/16 11:24 10 105/78 97 05/16/16 11:00 127 14 105/78 96 05/16/16 10:34 13 116/68 96 05/16/16 10:10 11 126/104 96 05/16/16 10:00 98.1 F 135 18 120/72 98 05/16/16 09:05 152 18 149/81 95 05/16/16 09:00 135 Results - Laboratory Findings CBC and BMP: 05/16/16 01:29 05/16/16 01:29 ABG ABG pH 7.31 pH Units (7.32-7.45) L 05/16/16 09:56 ABG pCO2 54 mmHg (35-45) H 05/16/16 09:56 ABG pO2 346 mmHg (85-104) H 05/16/16 09:56 ABG O2 Saturation 100 % (95-98) H 05/16/16 09:56 Abnormal lab findings: Abnormal lab results WBC 15.8 K/mcL (4.3-11.1) H 05/16/16 01:29 RDW 15.4 % (11.5-14.5) H 05/16/16 01:29 Neutrophils # 13.6 K/mcL (1.6-8.9) H 05/16/16 01:29 Nucleated RBCs/100 WBC 0.1 /100 WBC (0) H 05/16/16 01:29 ABG pH 7.31 pH Units (7.32-7.45) L 05/16/16 09:56 ABG pCO2 54 mmHg (35-45) H 05/16/16 09:56 ABG pO2 346 mmHg (85-104) H 05/16/16 09:56 ABG HCO3 27.2 mEQ/L (21-27) H 05/16/16 09:56 ABG Total CO2 28.9 mEq/L (20-26) H 05/16/16 09:56 ABG O2 Saturation 100 % (95-98) H 05/16/16 09:56 BUN 22 mg/dL (7-20) H 05/16/16 01:29 BUN/Creatinine Ratio 28 (6-26) H 05/16/16 01:29 Glucose 333 mg/dL (70-99) H 05/16/16 01:29 POC Glucose 280 (58-89) H 05/16/16 08:45 Calculated Osmolality 310 (280-300) H 05/16/16 01:29 - Attending Attestation I examined this patient and my medical decision-making was reviewed with the SALES STRATEGY MANAGER/PA/Advanced Practice Nurse/Resident Physician. I agree with the documented findings, disposition and treatment plan as described except to the extent set forth below. Patient seen and examined. Labs, radiology, chart personally reviewed. Agree with resident's history and physical, assessment, plan with following comments: BEEF SKINNER: Patient follows commands before intubation and she is in acute distress, Patient will be on sedation. Pulmonary: Patient was brought to intensive care unit by hospitalist team and she was in acute respiratory distress. I have explained to patient trial of noninvasive ventilation, but she did not want it and she wanted to be intubated and she agreed to risks associated with invasive mechanical ventilation. Patient was successfully intubated by a resident and myself supervision and then then setting order was given to respiratory therapist and subsequently her ABG was reasonable with acceptable ventilation and oxygenation. Patient will be treated for COPD exacerbation with systemic steroids, bronchodilators and empiric antibiotics and nicotine patch in addition to invasive mechanical ventilation. Cardiovascular: hypertension secondary to the stress and with sedation that has improved. GI: Nutrition per dietary and GI prophylaxis per routine Heme: DVT prophylaxis per routine ID: Continue antibiotic and plan to de-escalation Renal; urine out put and renal funtion reviewed Endorcine: blood glucose is monitored Lines: all lines checked and no evidence of infections Skin: skin care to prevent pressure ulcers per nursing routine care Family has been updated. Poor prognosis if she does not quit smoking. I spent 40 min of Critical Care time with this patient. It involved decision making of high complexity to assess, manipulate, and support vital organ system failure and/or to prevent further life threatening deterioration of the patient' s condition. The time involved in the performance of separately reportable procedures was not counted toward critical care time.
[2016-05-16] MEDS: *HR* Heparin 5,000 UNIT/ML VIAL SQ SCH ×2 (10:22→18:28)
[2016-05-16] MEDS: Pantoprazole 40 MG VIAL IVP SCH (10:22)
[2016-05-16] MEDS: FentaNYL (PF) 1,000 MCG in 0.9 % Sodium Chloride 80 ML IVC SCH ×2 (10:23→19:42)
[2016-05-16] MEDS ORDERED: D5% in Water 1,000 ML IVC PRN (10:52)
[2016-05-16] MEDS ORDERED: Dextrose Gel 15 GM PO PRN ×2 (10:52)
[2016-05-16] MEDS ORDERED: *HR* Dextrose 50 % in Water (Syg) 50 ML SYRINGE IVP PRN (10:52)
[2016-05-16] MEDS: Ipratropium/Albuterol Neb 3 ML IH SCH ×4 (11:23→23:42)
[2016-05-16] MEDS: Budesonide/Formoterol 160/4.5 MDI IH SCH ×2 (11:23→20:04)
[2016-05-16] MEDS ORDERED: cloNIDine HCl 0.1 MG TABLET PO SCH (12:00)
[2016-05-16] MEDS: Lacri-Lube 3.5 GM TUBE BOTH EYES SCH ×3 (12:03→19:44)
[2016-05-16] MEDS: methylPREDNISolone 125 MG/2 ML VIAL IVP SCH ×2 (12:03→18:29)
[2016-05-16] MEDS: Insulin LISPRO 300 UNITS/3 ML VIAL SQ SCH ×2 (12:04→18:29)
[2016-05-16] MEDS: cloNIDine HCl 0.1 MG TABLET PO SCH ×2 (12:04→18:29)
[2016-05-16] MEDS: Nicotine 14 MG PATCH.TD24 TD SCH (13:53)
[2016-05-16] MEDS: Chlorhexidine Rinse 15 ML MOUTHWASH MM SCH (19:44)
[2016-05-17] MEDS: Lacri-Lube 3.5 GM TUBE BOTH EYES SCH ×7 (00:27→23:24)
[2016-05-17] MEDS: methylPREDNISolone 125 MG/2 ML VIAL IVP SCH ×4 (00:27→23:24)
[2016-05-17] MEDS: Insulin LISPRO 300 UNITS/3 ML VIAL SQ SCH ×5 (00:27→23:24)
[2016-05-17] MEDS: cloNIDine HCl 0.1 MG TABLET PO SCH ×2 (00:59→05:24)
[2016-05-17] MEDS ORDERED: 0.9 % Sodium Chloride 1,000 ML IVC SCH (01:45)
[2016-05-17] MEDS: FentaNYL (PF) 1,000 MCG in 0.9 % Sodium Chloride 80 ML IVC SCH ×3 (03:01→16:54)
[2016-05-17] MEDS: Ipratropium/Albuterol Neb 3 ML IH SCH ×5 (04:06→20:21)
[2016-05-17 04:08] LABS: Basophils % 0.1 %; Hematocrit 46.1 % (35.3-44.9); Hemoglobin 14.1 g/dL (11.5-15.4); Immature Granulocytes % 1.1 % (0-4); Lymphocytes # 0.3 K/mcL (0.6-4.6); Lymphocytes % 1.8 %; Mean Corpuscular HGB Conc 30.6 g/dL (31.6-35.5); Mean Corpuscular Volume 98.1 fL (83.0-100.0); Mean Platelet Volume 10.1 fL (9.4-12.4); Monocytes # 0.2 K/mcL (0.0-1.3); Monocytes % 1.2 %; Neutrophils # 14.7 K/mcL (1.6-8.9); Platelet Count 259 K/mcL (140-400); Red Cell Distribution Width 15.7 % (11.5-14.5); Segmented Neutrophils % 95.8 %
[2016-05-17 04:09] LABS: ABG Base Excess -1.5 mEq/L (-2.0 to 3.0); ABG HCO3 28.2 mEQ/L (21-27); ABG Oxygen Saturation 96 % (95-98); ABG PCO2 69 mmHg (35-45); ABG PH 7.22 pH Units (7.32-7.45); ABG PO2 99 mmHg (85-104); ABG TCO2 30.3 mEq/L (20-26)
[2016-05-17 04:12] LABS: Blood Gas FiO2 50 %
[2016-05-17 04:22] LABS: BUN/Creatinine Ratio 47 (6-26); Calcium 8.6 mg/dL (8.6-10.8); Carbon Dioxide 24 mEq/L (19-29); Chloride 102 mEq/L (98-109); Glucose 187 mg/dL (70-99); Osmolality,Calculated 301 (280-300); Potassium 4.2 mEq/L (3.5-4.5); Sodium 136 mEq/L (136-145); eGFR For African Americans > 60 (> 60); eGFR For Non-African Americans 52 (> 60)
[2016-05-17 04:23] LABS: Blood Urea Nitrogen 51 mg/dL (7-20)
[2016-05-17] MEDS: *HR* Heparin 5,000 UNIT/ML VIAL SQ SCH ×3 (05:26→23:24)
--- NOTE | 2016-05-17 06:59 | Electrocardiograph Report ---
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
--- NOTE | 2016-05-17 07:01 | Electrocardiograph Report ---
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
--- NOTE | 2016-05-17 07:09 | Pulmonology Progress Note ---
<Tony Knight - Last Filed: 05/17/16 12:38> Date of Encounter: 05/17/16 Time of Encounter: 07:09 Assessment and Plan (1) Acute on chronic respiratory failure with hypoxia and hypercapnia Current Visit: Yes Status: Acute Acute on chronic respiratory failure with hypoxia and hypercapnia secondary to acute exacerbation of COPD from underlying influenza B infection, patient is currently intubated on mechanical ventilation, ABG this morning was worse than last night therefore mechanical ventilation settings were adjusted, repeated ABG showed a slight improvement, will continue the treatment for influenza B infection and COPD exacerbation regimen of DuoNeb, Symbicort, IV azithromycin, and IV steroid. (2) Acute exacerbation of chronic obstructive pulmonary disease Current Visit: Yes Status: Acute Acute exacerbation of COPD likely secondary to influenza B infection, currently patient is intubated on mechanical ventilation, continue DuoNeb every 4 hours, Symbicort, and Solu-Medrol 60 mg IV every 8 hours. (3) Influenza B Current Visit: Yes Status: Acute This was a positive on PCR test, therefore she was started on Tamiflu today for total of 5 days. (4) Hypotension Current Visit: Yes Status: Acute Initially patient was hypertensive and he was continued on home dose of clonidine, however his blood pressure has been hypotensive since last night therefore we will hold clonidine for now, continue to closely monitor patient's vital sign, current MAP is 72. Qualifiers: Qualified Code(s): I95.9 - Hypotension, unspecified (5) Leukocytosis Current Visit: Yes Status: Acute Leukocytosis improved from 15.8 to 15.3 this morning, this could be reactive from COPD exacerbation versus underlying infection, influenza B was positive, currently on tamiflu and azithromycin IV, continued to monitor white count. Qualifiers: Qualified Code(s): D72.829 - Elevated white blood cell count, unspecified (6) DM (diabetes mellitus), type 2 Current Visit: Yes Status: Acute Last hemoglobin A1c was 7.8 on 03/25/2015, glucose is stable at this time, continue sliding scale insulin every 6 hours. Qualifiers: Qualified Code(s): E11.9 - Type 2 diabetes mellitus without complications (7) DVT prophylaxis Current Visit: Yes Status: Acute Heparin subcutaneous 3 times a day. Subjective Principal diagnosis: Acute on chronic hypoxic and hypercapnic respiratory failure Interval history: This is a 56 years old female with a history of COPD on home oxygen and BiPAP at night came into the ER with chief complaint of progressive worsening of shortness of breath and productive cough, patient was intubated on medical floor and transferred to ICU yesterday. Patient seen and examined. She is still on mechanical ventilation and sedation with propofol and fentanyl IV drip, no overnight acute events, repeated ABG this morning was worse than yesterday therefore adjustment was made on mechanical ventilation setting this morning. Objective PUL Vital signs: Last Vital Signs Temp 98.0 F 05/17/16 04:00 Pulse 102 05/17/16 06:00 Resp 10 05/17/16 06:00 BP 96/53 05/17/16 06:00 Pulse Ox 92 L 05/17/16 06:00 General appearance: no acute distress, other (on sedation) Eyes: nonicteric ENT: oropharynx moist Neck: supple Effort: normal Auscultation: bilateral: diminished breath sounds (Diffusely) Cardiovascular: regular rate and rhythm Gastrointestinal: normoactive bowel sounds, soft, non-distended Integumentary: normal Extremities: no cyanosis, no edema Musculoskeletal: no deformities pupils equal and round, other (on sedation) Ventilator Settings Ventilator Settings: Ventilator Settings, Last 8 Hours Ventilator Mode VC+ Ventilator Mode VC+ Ventilator Mode VC+ Ventilator Mode VC+ Ventilator Mode VC+ Ventilator Mode VC+ Ventilator Mode VC+ Ventilator Mode VC+ Ventilator Mode VC+ Ventilator Mode VC+ Ventilator Mode VC+ Ventilator Mode VC+ Ventilator Tidal Volume 550 Setting Ventilator Tidal Volume 550 Setting Ventilator Tidal Volume 550 Setting Ventilator Tidal Volume 550 Setting Ventilator Tidal Volume 550 Setting Ventilator Tidal Volume 550 Setting Ventilator Tidal Volume 550 Setting Ventilator Tidal Volume 550 Setting Ventilator Tidal Volume 550 Setting Ventilator Tidal Volume 550 Setting Ventilator Tidal Volume 550 Setting Ventilator Tidal Volume 550 Setting Ventilator Respiratory Rate 10 Setting Ventilator Respiratory Rate 10 Setting Ventilator Respiratory Rate 10 Setting Ventilator Respiratory Rate 10 Setting Ventilator Respiratory Rate 10 Setting Ventilator Respiratory Rate 10 Setting Ventilator Respiratory Rate 10 Setting Ventilator Respiratory Rate 10 Setting Ventilator Respiratory Rate 10 Setting Ventilator Respiratory Rate 10 Setting Ventilator Respiratory Rate 10 Setting Ventilator Respiratory Rate 10 Setting Actual Respiratory Rate 10 Actual Respiratory Rate 10 Actual Respiratory Rate 10 Actual Respiratory Rate 10 Actual Respiratory Rate 10 Actual Respiratory Rate 10 Actual Respiratory Rate 11 Actual Respiratory Rate 11 Actual Respiratory Rate 10 Actual Respiratory Rate 10 Actual Respiratory Rate 12 Positive End Expiratory 5 Pressure Positive End Expiratory 5 Pressure Positive End Expiratory 5 Pressure Positive End Expiratory 5 Pressure Positive End Expiratory 5 Pressure Positive End Expiratory 5 Pressure Positive End Expiratory 5 Pressure Positive End Expiratory 5 Pressure Positive End Expiratory 5 Pressure Positive End Expiratory 5 Pressure Positive End Expiratory 5 Pressure Positive End Expiratory 5 Pressure Peak Inspiratory Airway 28 Pressure Peak Inspiratory Airway 28 Pressure Peak Inspiratory Airway 24 Pressure Peak Inspiratory Airway 24 Pressure Peak Inspiratory Airway 16 Pressure Peak Inspiratory Airway 17 Pressure Peak Inspiratory Airway 17 Pressure Peak Inspiratory Airway 17 Pressure Peak Inspiratory Airway 19 Pressure Peak Inspiratory Airway 19 Pressure Peak Inspiratory Airway 19 Pressure Results - Laboratory Findings CBC and BMP: 05/17/16 03:51 05/17/16 03:51 ABG ABG pH 7.22 pH Units (7.32-7.45) L 05/17/16 03:58 ABG pCO2 69 mmHg (35-45) H 05/17/16 03:58 ABG pO2 99 mmHg (85-104) 05/17/16 03:58 ABG O2 Saturation 96 % (95-98) 05/17/16 03:58 Abnormal lab findings: Abnormal lab results WBC 15.3 K/mcL (4.3-11.1) H 05/17/16 03:51 Hct 46.1 % (35.3-44.9) H 05/17/16 03:51 MCHC 30.6 g/dL (31.6-35.5) L 05/17/16 03:51 RDW 15.7 % (11.5-14.5) H 05/17/16 03:51 Neutrophils # 14.7 K/mcL (1.6-8.9) H 05/17/16 03:51 Lymphocytes # 0.3 K/mcL (0.6-4.6) L 05/17/16 03:51 Nucleated RBCs/100 WBC 0.1 /100 WBC (0) H 05/16/16 01:29 ABG pH 7.22 pH Units (7.32-7.45) L 05/17/16 03:58 ABG pCO2 69 mmHg (35-45) H 05/17/16 03:58 ABG HCO3 28.2 mEQ/L (21-27) H 05/17/16 03:58 ABG Total CO2 30.3 mEq/L (20-26) H 05/17/16 03:58 BUN 51 mg/dL (7-20) H D 05/17/16 03:51 Est GFR (Non-Af Amer) 52 (> 60) L 05/17/16 03:51 BUN/Creatinine Ratio 47 (6-26) H 05/17/16 03:51 Glucose 187 mg/dL (70-99) H 05/17/16 03:51 POC Glucose 177 (58-89) H 05/16/16 23:57 Calculated Osmolality 301 (280-300) H 05/17/16 03:51 - Clinical Findings Intake & Output: Intake & Output 05/16/16 05/16/16 05/17/16 15:59 23:59 07:59 Intake Total 300 / 300 300 / 300 Output Total 150 / 150 100 / 100 Balance 150 / 150 200 / 200 Weight 67.3 kg Consult Discharge Plan - Plan Referrals: NO,PCP [Primary Care Provider] - <Sedrick Hargrove - Last Filed: 05/17/16 14:39> Objective PUL Vital signs: Last Vital Signs Temp 97.6 F 05/17/16 08:20 Pulse 102 05/17/16 08:00 Resp 17 05/17/16 08:38 BP 93/63 05/17/16 07:53 Pulse Ox 95 05/17/16 08:38 Ventilator Settings Ventilator Settings: Ventilator Settings, Last 8 Hours Ventilator Mode VC+ Ventilator Mode VC+ Ventilator Mode VC+ Ventilator Mode VC+ Ventilator Mode VC+ Ventilator Mode VC+ Ventilator Mode VC+ Ventilator Mode VC+ Ventilator Mode VC+ Ventilator Mode VC+ Ventilator Mode VC+ Ventilator Mode VC+ Ventilator Mode VC+ Ventilator Tidal Volume 460 Setting Ventilator Tidal Volume 550 Setting Ventilator Tidal Volume 550 Setting Ventilator Tidal Volume 550 Setting Ventilator Tidal Volume 550 Setting Ventilator Tidal Volume 550 Setting Ventilator Tidal Volume 550 Setting Ventilator Tidal Volume 550 Setting Ventilator Tidal Volume 550 Setting Ventilator Tidal Volume 550 Setting Ventilator Tidal Volume 550 Setting Ventilator Tidal Volume 550 Setting Ventilator Tidal Volume 550 Setting Ventilator Respiratory Rate 17 Setting Ventilator Respiratory Rate 10 Setting Ventilator Respiratory Rate 10 Setting Ventilator Respiratory Rate 10 Setting Ventilator Respiratory Rate 10 Setting Ventilator Respiratory Rate 10 Setting Ventilator Respiratory Rate 10 Setting Ventilator Respiratory Rate 10 Setting Ventilator Respiratory Rate 10 Setting Ventilator Respiratory Rate 10 Setting Ventilator Respiratory Rate 10 Setting Ventilator Respiratory Rate 10 Setting Ventilator Respiratory Rate 10 Setting Actual Respiratory Rate 17 Actual Respiratory Rate 10 Actual Respiratory Rate 10 Actual Respiratory Rate 10 Actual Respiratory Rate 10 Actual Respiratory Rate 10 Actual Respiratory Rate 10 Actual Respiratory Rate 10 Actual Respiratory Rate 10 Actual Respiratory Rate 10 Actual Respiratory Rate 11 Actual Respiratory Rate 11 Positive End Expiratory 5 Pressure Positive End Expiratory 5 Pressure Positive End Expiratory 5 Pressure Positive End Expiratory 5 Pressure Positive End Expiratory 5 Pressure Positive End Expiratory 5 Pressure Positive End Expiratory 5 Pressure Positive End Expiratory 5 Pressure Positive End Expiratory 5 Pressure Positive End Expiratory 5 Pressure Positive End Expiratory 5 Pressure Positive End Expiratory 5 Pressure Positive End Expiratory 5 Pressure Peak Inspiratory Airway 20 Pressure Peak Inspiratory Airway 20 Pressure Peak Inspiratory Airway 29 Pressure Peak Inspiratory Airway 20 Pressure Peak Inspiratory Airway 28 Pressure Peak Inspiratory Airway 28 Pressure Peak Inspiratory Airway 24 Pressure Peak Inspiratory Airway 24 Pressure Peak Inspiratory Airway 16 Pressure Peak Inspiratory Airway 17 Pressure Peak Inspiratory Airway 17 Pressure Peak Inspiratory Airway 17 Pressure Results - Laboratory Findings CBC and BMP: 05/17/16 03:51 05/17/16 03:51 ABG ABG pH 7.22 pH Units (7.32-7.45) L 05/17/16 03:58 ABG pCO2 69 mmHg (35-45) H 05/17/16 03:58 ABG pO2 99 mmHg (85-104) 05/17/16 03:58 ABG O2 Saturation 96 % (95-98) 05/17/16 03:58 Abnormal lab findings: Abnormal lab results WBC 15.3 K/mcL (4.3-11.1) H 05/17/16 03:51 Hct 46.1 % (35.3-44.9) H 05/17/16 03:51 MCHC 30.6 g/dL (31.6-35.5) L 05/17/16 03:51 RDW 15.7 % (11.5-14.5) H 05/17/16 03:51 Neutrophils # 14.7 K/mcL (1.6-8.9) H 05/17/16 03:51 Lymphocytes # 0.3 K/mcL (0.6-4.6) L 05/17/16 03:51 Nucleated RBCs/100 WBC 0.1 /100 WBC (0) H 05/16/16 01:29 ABG pH 7.22 pH Units (7.32-7.45) L 05/17/16 03:58 ABG pCO2 69 mmHg (35-45) H 05/17/16 03:58 ABG HCO3 28.2 mEQ/L (21-27) H 05/17/16 03:58 ABG Total CO2 30.3 mEq/L (20-26) H 05/17/16 03:58 BUN 51 mg/dL (7-20) H D 05/17/16 03:51 Est GFR (Non-Af Amer) 52 (> 60) L 05/17/16 03:51 BUN/Creatinine Ratio 47 (6-26) H 05/17/16 03:51 Glucose 187 mg/dL (70-99) H 05/17/16 03:51 POC Glucose 177 (58-89) H 05/16/16 23:57 Calculated Osmolality 301 (280-300) H 05/17/16 03:51 Influenza Type B (PCR) DETECTED (Not Detect) A 05/17/16 05:30 - Clinical Findings Intake & Output: Intake & Output 05/16/16 05/17/16 05/17/16 23:59 07:59 15:59 Intake Total 300 / 300 300 / 300 Output Total 150 / 150 225 / 225 125 / 125 Balance 150 / 150 75 / 75 -125 / -125 Weight 67.3 kg - Attending Attestation I examined this patient and my medical decision-making was reviewed with the CREATIVE SERVICES COORDINATOR/PA/Advanced Practice Nurse/Resident Physician. I agree with the documented findings, disposition and treatment plan as described except to the extent set forth below. I spent 35min of Critical Care time with this patient. It involved decision making of high complexity to assess, manipulate, and support vital organ system failure and/or to prevent further life threatening deterioration of the patient' s condition. The time involved in the performance of separately reportable procedures was not counted toward critical care time. Patient seen and examined at bedside Labs, radiology, chart personally reviewed. All lines examined without evidence of infection. Neuropsych: Intubated and sedated. moves all ext's off of sedation. cont propfol and fentanyl to GIL 3. Daily sedation holiday Pulm: acute on chronic hypoxic respiratory failure s/t to PNA with COPD exacerbation. cont steroids and BDs. Antimicrobials started. vent adjusted for LTV stratgery and I:E around 1:3. Accepatble O2 sat on 50% Fio2 and 5 PEEP Cards: MAP goal 60 no pressors needed. cont to monitor on tele. FEN-GI: cont PPI for GI prophylaxis Renal: no DEBBIE ID: Influenza + started on tamiflu, start azithro stop levaquin Heme/Onc: cont DVT propylaxis with Sub Q heparin Endo: glucose monitroed Integ/MSK: skin care per ICU protocol. CODE: Full code.
[2016-05-17] MEDS: Aspirin Enteric Coated 81 MG Tablet PO SCH (07:36)
[2016-05-17] MEDS: Chlorhexidine Rinse 15 ML MOUTHWASH MM SCH ×2 (07:36→19:20)
[2016-05-17] MEDS: Pantoprazole 40 MG VIAL IVP SCH (07:36)
[2016-05-17] MEDS: Budesonide/Formoterol 160/4.5 MDI IH SCH ×2 (07:37→20:21)
[2016-05-17 07:44] LABS: Adenovirus Not Detected (Not Detect); Bordetella Pertussis Not Detected (Not Detect); Chlamydophila pneumoniae Not Detected (Not Detect); Coronavirus 229E Not Detected (Not Detect); Coronavirus HKU1 Not Detected (Not Detect); Coronavirus NL63 Not Detected (Not Detect); Coronavirus OC43 Not Detected (Not Detect); Human Metapneumovirus Not Detected (Not Detect); Human Rhinovirus/Enterovirus Not Detected (Not Detect); Influenza A Subtype 2009 H1 Not Detected (Not Detect); Influenza A Untypeable Not Detected (Not Detect); Mycoplasma pneumoniae Not Detected (Not Detect); Parainfluenza Virus 1 Not Detected (Not Detect); Parainfluenza Virus 2 Not Detected (Not Detect); Parainfluenza Virus 3 Not Detected (Not Detect); Parainfluenza Virus 4 Not Detected (Not Detect); Respiratory Syncytial Virus Not Detected (Not Detect)
[2016-05-17 07:46] LABS: Influenza B ***DETECTED*** (Not Detect)
[2016-05-17] MEDS ORDERED: Levofloxacin 750 MG/150 ML 750 MG/150 ML BAG IVPB SCH (09:00)
[2016-05-17 10:20] LABS: ABG Base Excess -1.8 mEq/L (-2.0 to 3.0); ABG Oxygen Saturation 84 % (95-98); ABG PCO2 63 mmHg (35-45); ABG PH 7.24 pH Units (7.32-7.45); ABG PO2 58 mmHg (85-104); ABG TCO2 28.9 mEq/L (20-26)
[2016-05-17 10:21] LABS: Blood Gas FiO2 40 %
[2016-05-17] MEDS: Azithromycin 500 MG in D5% in Water 250 ML IVPB SCH (13:12)
[2016-05-17] MEDS: Nicotine 14 MG PATCH.TD24 TD SCH (13:13)
--- NOTE | 2016-05-17 13:28 | Procedure Note ---
Date of procedure: 05/16/16 Pre-op diagnosis: Acute Respiratory Failure Post-op diagnosis: same Procedure: A time-out was completed verifying correct patient, procedure, site, positioning , and special equipment if applicable. The patient was placed in a flat position. Sedation was obtained using Versed 7mg, and additionally with Propofol 20mL. The patient was easily ventilated using an ambu bag. The [employer] was used and inserted into the oropharynx at which time there was a Grade 1 view of the vocal cords. A 7.5-montenegrin endotracheal tube was inserted and visualized going through the vocal cords. The stylette was removed. Balloon was inflated. Colorimetric change was visualized on the CO2 meter. Breath sounds were heard in both lung salazar equally. The endotracheal tube was placed at 22 cm, measured at the teeth. Dr. Nelson was present for the entire procedure. A chest x-ray was ordered to assess for~pneumothorax~and verify~ endotrachealtube placement. Anesthesia: DANG Surgeon: Wilder Brewster Director External Communications: Zainab Nelson Estimated blood loss (cc): 0 Condition: stable Disposition: ICU
[2016-05-17] MEDS ORDERED: Ipratropium/Albuterol Neb 3 ML IH ONE (16:25)
[2016-05-17 16:43] LABS: ABG Base Excess -2.6 mEq/L (-2.0 to 3.0); ABG HCO3 26.1 mEQ/L (21-27); ABG Oxygen Saturation 94 % (95-98); ABG PCO2 61 mmHg (35-45); ABG PH 7.24 pH Units (7.32-7.45); ABG PO2 83 mmHg (85-104)
[2016-05-17 16:49] LABS: Blood Gas FiO2 50 %
[2016-05-17] MEDS: FentaNYL (PF) 3,000 MCG in 0.9 % Sodium Chloride 240 ML IVC SCH (21:58)
[2016-05-18] MEDS: Ipratropium/Albuterol Neb 3 ML IH SCH ×6 (00:14→19:46)
[2016-05-18] MEDS: Lacri-Lube 3.5 GM TUBE BOTH EYES SCH ×6 (03:24→23:38)
[2016-05-18 04:23] LABS: Basophils % 0.1 %; Hematocrit 40.2 % (35.3-44.9); Hemoglobin 13.3 g/dL (11.5-15.4); Immature Granulocytes % 0.7 % (0-4); Lymphocytes # 0.3 K/mcL (0.6-4.6); Lymphocytes % 1.8 %; Mean Corpuscular HGB Conc 33.1 g/dL (31.6-35.5); Mean Corpuscular Hemoglobin 32.4 pg (28.0-33.3); Mean Corpuscular Volume 97.8 fL (83.0-100.0); Monocytes # 0.3 K/mcL (0.0-1.3); Monocytes % 2.1 %; Neutrophils # 14.7 K/mcL (1.6-8.9); Platelet Count 214 K/mcL (140-400); Red Blood Count 4.11 M/mcL (3.82-4.97); Red Cell Distribution Width 15.4 % (11.5-14.5); Segmented Neutrophils % 95.3 %
[2016-05-18 04:37] LABS: Calcium 8.1 mg/dL (8.6-10.8)
[2016-05-18 05:04] LABS: ABG Base Excess -0.7 mEq/L (-2.0 to 3.0); ABG HCO3 26.6 mEQ/L (21-27); ABG Oxygen Saturation 90 % (95-98); ABG PCO2 54 mmHg (35-45); ABG PO2 64 mmHg (85-104); ABG TCO2 28.3 mEq/L (20-26)
[2016-05-18 05:09] LABS: Blood Gas FiO2 50 %
[2016-05-18] MEDS: Insulin LISPRO 300 UNITS/3 ML VIAL SQ SCH ×4 (05:34→23:38)
[2016-05-18] MEDS: *HR* Heparin 5,000 UNIT/ML VIAL SQ SCH ×3 (05:39→22:09)
--- NOTE | 2016-05-18 06:59 | Pulmonology Progress Note ---
<Sedrick Hargrove W - Last Filed: 05/18/16 10:34> Objective PUL Vital signs: Last Vital Signs Temp 98.1 F 05/18/16 07:40 Pulse 101 05/18/16 09:00 Resp 16 05/18/16 09:00 BP 113/64 05/18/16 09:00 Pulse Ox 93 L 05/18/16 09:00 Ventilator Settings Ventilator Settings: Ventilator Settings, Last 8 Hours Ventilator Mode VC+ Ventilator Mode VC+ Ventilator Mode VC+ Ventilator Mode VC+ Ventilator Mode VC+ Ventilator Mode VC+ Ventilator Mode VC+ Ventilator Mode VC+ Ventilator Mode VC+ Ventilator Mode VC+ Ventilator Mode VC+ Ventilator Tidal Volume 460 Setting Ventilator Tidal Volume 460 Setting Ventilator Tidal Volume 460 Setting Ventilator Tidal Volume 460 Setting Ventilator Tidal Volume 460 Setting Ventilator Tidal Volume 460 Setting Ventilator Tidal Volume 460 Setting Ventilator Tidal Volume 460 Setting Ventilator Tidal Volume 460 Setting Ventilator Tidal Volume 460 Setting Ventilator Tidal Volume 460 Setting Ventilator Respiratory Rate 16 Setting Ventilator Respiratory Rate 16 Setting Ventilator Respiratory Rate 16 Setting Ventilator Respiratory Rate 20 Setting Ventilator Respiratory Rate 20 Setting Ventilator Respiratory Rate 20 Setting Ventilator Respiratory Rate 20 Setting Ventilator Respiratory Rate 20 Setting Ventilator Respiratory Rate 20 Setting Ventilator Respiratory Rate 20 Setting Ventilator Respiratory Rate 20 Setting Actual Respiratory Rate 16 Actual Respiratory Rate 16 Actual Respiratory Rate 25 Actual Respiratory Rate 20 Actual Respiratory Rate 20 Actual Respiratory Rate 20 Actual Respiratory Rate 20 Actual Respiratory Rate 20 Actual Respiratory Rate 20 Actual Respiratory Rate 20 Actual Respiratory Rate 20 Positive End Expiratory 5 Pressure Positive End Expiratory 5 Pressure Positive End Expiratory 5 Pressure Positive End Expiratory 5 Pressure Positive End Expiratory 5 Pressure Positive End Expiratory 5 Pressure Positive End Expiratory 5 Pressure Positive End Expiratory 5 Pressure Positive End Expiratory 5 Pressure Positive End Expiratory 5 Pressure Positive End Expiratory 5 Pressure Peak Inspiratory Airway 22 Pressure Peak Inspiratory Airway 22 Pressure Peak Inspiratory Airway 24 Pressure Peak Inspiratory Airway 24 Pressure Peak Inspiratory Airway 24 Pressure Peak Inspiratory Airway 22 Pressure Peak Inspiratory Airway 23 Pressure Peak Inspiratory Airway 23 Pressure Peak Inspiratory Airway 24 Pressure Results - Laboratory Findings CBC and BMP: 05/18/16 04:06 05/18/16 04:06 ABG ABG pH 7.30 pH Units (7.32-7.45) L 05/18/16 04:57 ABG pCO2 54 mmHg (35-45) H 05/18/16 04:57 ABG pO2 64 mmHg (85-104) L 05/18/16 04:57 ABG O2 Saturation 90 % (95-98) L 05/18/16 04:57 Abnormal lab findings: Abnormal lab results WBC 15.4 K/mcL (4.3-11.1) H 05/18/16 04:06 RDW 15.4 % (11.5-14.5) H 05/18/16 04:06 Neutrophils # 14.7 K/mcL (1.6-8.9) H 05/18/16 04:06 Lymphocytes # 0.3 K/mcL (0.6-4.6) L 05/18/16 04:06 Nucleated RBCs/100 WBC 0.1 /100 WBC (0) H 05/16/16 01:29 ABG pH 7.30 pH Units (7.32-7.45) L 05/18/16 04:57 ABG pCO2 54 mmHg (35-45) H 05/18/16 04:57 ABG pO2 64 mmHg (85-104) L 05/18/16 04:57 ABG Total CO2 28.3 mEq/L (20-26) H 05/18/16 04:57 ABG O2 Saturation 90 % (95-98) L 05/18/16 04:57 Sodium 132 mEq/L (136-145) L 05/18/16 04:06 BUN 62 mg/dL (7-20) H 05/18/16 04:06 Creatinine 1.13 mg/dL (0.57-1.11) H 05/18/16 04:06 Est GFR (Non-Af Amer) 49 (> 60) L 05/18/16 04:06 BUN/Creatinine Ratio 55 (6-26) H 05/18/16 04:06 Glucose 236 mg/dL (70-99) H 05/18/16 04:06 POC Glucose 131 (58-89) H 05/17/16 23:14 Calcium 8.1 mg/dL (8.6-10.8) L 05/18/16 04:06 Influenza Type B (PCR) DETECTED (Not Detect) A 05/17/16 05:30 - Clinical Findings Intake & Output: Intake & Output 05/17/16 05/18/16 05/18/16 23:59 07:59 15:59 Intake Total 400 / 400 200 / 200 0 / 0 Output Total 550 / 550 200 / 200 Balance -150 / -150 0 / 0 0 / 0 Weight 69.763 kg Consult Discharge Plan - Plan Referrals: NO,PCP [Primary Care Provider] - - Attending Attestation I examined this patient and my medical decision-making was reviewed with the RIPRAP PLACER/PA/Advanced Practice Nurse/Resident Physician. I agree with the documented findings, disposition and treatment plan as described except to the extent set forth below. Patient seen and examined at bedside Labs, radiology, chart personally reviewed. All lines examined without evidence of infection. Neuropsych: Intubated and sedated. moves all ext's off of sedation. Add Precedex for continued agitation cont propfol and fentanyl to GIL 3. Daily sedation holiday. Moves all ext's off sedation Pulm: acute on chronic hypoxic respiratory failure s/t to PNA with COPD exacerbation. Better ventilation cont LTV strategy with 1E ration aroiund 1:3 cont Antimicrobials started. Decrease Fio2 to 40% Cards: MAP goal 60 no pressors needed. cont to monitor on tele. FEN-GI: Cont Enteral fluids. cont PPI for GI prophylaxis add Bowel regimen. Cont Renal: BUN/Cretinine rising with conentrated urine - give gentle crystalloid replacement. ID: Influenza B+ started on tamiflu, Cont azithro x 5 days Heme/Onc: cont DVT propylaxis with Sub Q heparin Endo: glucose monitroed cont SSi add Basal coverage. Integ/MSK: skin care per ICU protocol. CODE: Full code. <Tony Knight - Last Filed: 05/18/16 11:16> Date of Encounter: 05/18/16 Time of Encounter: 06:59 Assessment and Plan (1) Acute on chronic respiratory failure with hypoxia and hypercapnia Current Visit: Yes Status: Acute Acute on chronic respiratory failure with hypoxia and hypercapnia secondary to acute exacerbation of COPD from underlying influenza B infection, patient is currently intubated on mechanical ventilation, ABG this morning showed slight improvement compared to yesterday, will try to decrease FiO2 down today, will continue the treatment for influenza B infection and COPD exacerbation regimen of DuoNeb, Symbicort, IV azithromycin, and IV steroid. (2) Acute exacerbation of chronic obstructive pulmonary disease Current Visit: Yes Status: Acute Acute exacerbation of COPD likely secondary to influenza B infection, currently patient is intubated on mechanical ventilation, continue DuoNeb every 4 hours, Symbicort, and Solu-Medrol 60 mg IV every 8 hours. (3) Influenza B Current Visit: Yes Status: Acute This was a positive on PCR test, therefore she was started on Tamiflu today for total of 5 days. (4) Hypotension Current Visit: Yes Status: Acute Blood pressure improved compared to yesterday after stopping home medication of clonidine. Continue to closely monitor patient's vital sign. Qualifiers: Qualified Code(s): I95.9 - Hypotension, unspecified (5) Leukocytosis Current Visit: Yes Status: Acute Leukocytosis not much change compared to yesterday, this could be reactive from COPD exacerbation versus underlying infection, influenza B was positive, currently on tamiflu and azithromycin IV, continued to monitor white count. Qualifiers: Qualified Code(s): D72.829 - Elevated white blood cell count, unspecified (6) DM (diabetes mellitus), type 2 Current Visit: Yes Status: Acute Last hemoglobin A1c was 7.8 on 03/25/2015, currently on IV steroids and she has been hyperglycemic, will add Levemir 10 units at bedtime on top of current high sliding scale insulin every 6 hours. Qualifiers: Qualified Code(s): E11.9 - Type 2 diabetes mellitus without complications (7) DVT prophylaxis Current Visit: Yes Status: Acute Heparin subcutaneous 3 times a day. Subjective Principal diagnosis: Acute on chronic hypoxic and hypercapnic respiratory failure Interval history: This is a 56 years old female with a history of COPD on home oxygen and BiPAP at night came into the ER with chief complaint of progressive worsening of shortness of breath and productive cough, patient was intubated on medical floor and transferred to ICU yesterday. Patient seen and examined. No acute event overnight except patient was trying to pull the endotracheal tube, sitting up, not well sedated, therefore Precedex IV was added this morning. Objective PUL Vital signs: Last Vital Signs Temp 98.2 F 05/18/16 03:57 Pulse 92 05/18/16 05:58 Resp 20 05/18/16 06:12 BP 95/56 05/18/16 06:12 Pulse Ox 92 L 05/18/16 06:12 General appearance: no acute distress, other (Still on sedation and mechanical ventilation) Eyes: nonicteric ENT: oropharynx moist Neck: supple Effort: normal Auscultation: bilateral: diminished breath sounds (Slightly in upper [place]) Cardiovascular: other (Regular rhythm but tachycardic) Gastrointestinal: absent bowel sounds, soft, non-distended Integumentary: normal Extremities: no cyanosis, no edema Musculoskeletal: no deformities pupils equal and round, other (On IV sedation) Ventilator Settings Ventilator Settings: Ventilator Settings, Last 8 Hours Ventilator Mode VC+ Ventilator Mode VC+ Ventilator Mode VC+ Ventilator Mode VC+ Ventilator Mode VC+ Ventilator Mode VC+ Ventilator Mode VC+ Ventilator Mode VC+ Ventilator Mode VC+ Ventilator Mode VC+ Ventilator Mode VC+ Ventilator Mode VC+ Ventilator Tidal Volume 460 Setting Ventilator Tidal Volume 460 Setting Ventilator Tidal Volume 460 Setting Ventilator Tidal Volume 460 Setting Ventilator Tidal Volume 460 Setting Ventilator Tidal Volume 460 Setting Ventilator Tidal Volume 460 Setting Ventilator Tidal Volume 460 Setting Ventilator Tidal Volume 460 Setting Ventilator Tidal Volume 460 Setting Ventilator Tidal Volume 460 Setting Ventilator Tidal Volume 460 Setting Ventilator Respiratory Rate 20 Setting Ventilator Respiratory Rate 20 Setting Ventilator Respiratory Rate 20 Setting Ventilator Respiratory Rate 20 Setting Ventilator Respiratory Rate 20 Setting Ventilator Respiratory Rate 20 Setting Ventilator Respiratory Rate 20 Setting Ventilator Respiratory Rate 20 Setting Ventilator Respiratory Rate 20 Setting Ventilator Respiratory Rate 20 Setting Ventilator Respiratory Rate 20 Setting Ventilator Respiratory Rate 20 Setting Actual Respiratory Rate 20 Actual Respiratory Rate 20 Actual Respiratory Rate 20 Actual Respiratory Rate 20 Actual Respiratory Rate 20 Actual Respiratory Rate 20 Actual Respiratory Rate 20 Actual Respiratory Rate 20 Actual Respiratory Rate 20 Actual Respiratory Rate 20 Actual Respiratory Rate 20 Actual Respiratory Rate 20 Positive End Expiratory 5 Pressure Positive End Expiratory 5 Pressure Positive End Expiratory 5 Pressure Positive End Expiratory 5 Pressure Positive End Expiratory 5 Pressure Positive End Expiratory 5 Pressure Positive End Expiratory 5 Pressure Positive End Expiratory 5 Pressure Positive End Expiratory 5 Pressure Positive End Expiratory 5 Pressure Positive End Expiratory 5 Pressure Positive End Expiratory 5 Pressure Peak Inspiratory Airway 22 Pressure Peak Inspiratory Airway 24 Pressure Peak Inspiratory Airway 24 Pressure Peak Inspiratory Airway 24 Pressure Peak Inspiratory Airway 22 Pressure Peak Inspiratory Airway 23 Pressure Peak Inspiratory Airway 23 Pressure Peak Inspiratory Airway 24 Pressure Peak Inspiratory Airway 24 Pressure Peak Inspiratory Airway 24 Pressure Peak Inspiratory Airway 24 Pressure Peak Inspiratory Airway 23 Pressure Results - Laboratory Findings CBC and BMP: 05/18/16 04:06 05/18/16 04:06 ABG ABG pH 7.30 pH Units (7.32-7.45) L 05/18/16 04:57 ABG pCO2 54 mmHg (35-45) H 05/18/16 04:57 ABG pO2 64 mmHg (85-104) L 05/18/16 04:57 ABG O2 Saturation 90 % (95-98) L 05/18/16 04:57 Abnormal lab findings: Abnormal lab results WBC 15.4 K/mcL (4.3-11.1) H 05/18/16 04:06 RDW 15.4 % (11.5-14.5) H 05/18/16 04:06 Neutrophils # 14.7 K/mcL (1.6-8.9) H 05/18/16 04:06 Lymphocytes # 0.3 K/mcL (0.6-4.6) L 05/18/16 04:06 Nucleated RBCs/100 WBC 0.1 /100 WBC (0) H 05/16/16 01:29 ABG pH 7.30 pH Units (7.32-7.45) L 05/18/16 04:57 ABG pCO2 54 mmHg (35-45) H 05/18/16 04:57 ABG pO2 64 mmHg (85-104) L 05/18/16 04:57 ABG Total CO2 28.3 mEq/L (20-26) H 05/18/16 04:57 ABG O2 Saturation 90 % (95-98) L 05/18/16 04:57 Sodium 132 mEq/L (136-145) L 05/18/16 04:06 BUN 62 mg/dL (7-20) H 05/18/16 04:06 Creatinine 1.13 mg/dL (0.57-1.11) H 05/18/16 04:06 Est GFR (Non-Af Amer) 49 (> 60) L 05/18/16 04:06 BUN/Creatinine Ratio 55 (6-26) H 05/18/16 04:06 Glucose 236 mg/dL (70-99) H 05/18/16 04:06 POC Glucose 131 (58-89) H 05/17/16 23:14 Calcium 8.1 mg/dL (8.6-10.8) L 05/18/16 04:06 Influenza Type B (PCR) DETECTED (Not Detect) A 05/17/16 05:30 - Clinical Findings Intake & Output: Intake & Output 05/17/16 05/17/16 05/18/16 15:59 23:59 07:59 Intake Total 700 / 700 400 / 400 200 / 200 Output Total 325 / 325 550 / 550 Balance 375 / 375 -150 / -150 200 / 200 Weight 69.763 kg
[2016-05-18] MEDS ORDERED: 0.9 % Sodium Chloride 500 ML IVC ONE (07:27)
[2016-05-18] MEDS: Budesonide/Formoterol 160/4.5 MDI IH SCH ×2 (07:40→21:24)
--- NOTE | 2016-05-18 08:12 | Electrocardiograph Report ---
[place] [id number] Test Date: 2016-05-16 Pat Name: Nora Ren Department: 109 Room: 09 Gender: F [employer]: JELENA : 1960 Requested By: Zainab Nelson Order Number: [id number] Reading MD: Low Cordova MD Measurements Intervals [place] Rate: 150 P: 76 OR: 107 QRS: 77 QRSD: 86 T: 65 QT: 278 QTc: 363 Interpretive Statements SINUS TACHYCARDIA WITH SHORT OR INTERVAL, POSSIBLE ATRIAL FLUTTER Electronically Signed On 05-18-2016 8:10:31 EDT by Low Cordova MD
[2016-05-18] MEDS: Pantoprazole 40 MG VIAL IVP SCH (09:30)
[2016-05-18] MEDS: Chlorhexidine Rinse 15 ML MOUTHWASH MM SCH ×2 (09:30→19:05)
[2016-05-18] MEDS: Aspirin Enteric Coated 81 MG Tablet PO SCH (09:30)
[2016-05-18] MEDS: methylPREDNISolone 125 MG/2 ML VIAL IVP SCH ×3 (09:30→23:37)
[2016-05-18] MEDS: Dexmedetomidine HCl 400 MCG/100 ML MLS IVC SCH ×2 (10:41→19:06)
[2016-05-18] MEDS: Azithromycin 500 MG in D5% in Water 250 ML IVPB SCH (10:46)
[2016-05-18] MEDS: Nicotine 14 MG PATCH.TD24 TD SCH (11:32)
[2016-05-18] MEDS: FentaNYL (PF) 3,000 MCG in 0.9 % Sodium Chloride 240 ML IVC SCH (13:52)
[2016-05-18] MEDS ORDERED: Insulin DETEMIR 100 UNIT/ML X5UNITS SQ SCH (21:00)
[2016-05-19] MEDS: Ipratropium/Albuterol Neb 3 ML IH SCH ×3 (00:19→07:24)
[2016-05-19] MEDS: Lacri-Lube 3.5 GM TUBE BOTH EYES SCH ×6 (03:30→22:54)
[2016-05-19] MEDS: Dexmedetomidine HCl 400 MCG/100 ML MLS IVC SCH ×3 (03:30→17:58)
[2016-05-19] MEDS: FentaNYL (PF) 3,000 MCG in 0.9 % Sodium Chloride 240 ML IVC SCH ×2 (03:31→17:59)
[2016-05-19 03:51] LABS: Basophils % 0.2 %; Hematocrit 43.2 % (35.3-44.9); Hemoglobin 13.3 g/dL (11.5-15.4); Immature Granulocytes % 0.7 % (0-4); Lymphocytes # 0.2 K/mcL (0.6-4.6); Lymphocytes % 1.5 %; Mean Corpuscular HGB Conc 30.8 g/dL (31.6-35.5); Mean Corpuscular Hemoglobin 29.8 pg (28.0-33.3); Mean Corpuscular Volume 96.9 fL (83.0-100.0); Mean Platelet Volume 10.5 fL (9.4-12.4); Monocytes # 0.3 K/mcL (0.0-1.3); Monocytes % 2.5 %; Platelet Count 221 K/mcL (140-400); Red Blood Count 4.46 M/mcL (3.82-4.97); Red Cell Distribution Width 15.3 % (11.5-14.5); Segmented Neutrophils % 95.1 %
[2016-05-19 04:06] LABS: BUN/Creatinine Ratio 77 (6-26); Blood Urea Nitrogen 59 mg/dL (7-20); Calcium 8.6 mg/dL (8.6-10.8); Carbon Dioxide 26 mEq/L (19-29); Chloride 106 mEq/L (98-109); Glucose 246 mg/dL (70-99); Osmolality,Calculated 311 (280-300); Potassium 4.7 mEq/L (3.5-4.5); Sodium 138 mEq/L (136-145); eGFR For African Americans > 60 (> 60); eGFR For Non-African Americans > 60 (> 60)
[2016-05-19 04:14] LABS: Platelet Estimate Normal (Normal); Toxic Granulation Present (Not Present); Toxic Vacuolation Present (Not Present)
[2016-05-19 04:52] LABS: ABG Base Excess 4.4 mEq/L (-2.0 to 3.0); ABG HCO3 31.5 mEQ/L (21-27); ABG Oxygen Saturation 91 % (95-98); ABG PCO2 57 mmHg (35-45); ABG PH 7.35 pH Units (7.32-7.45); ABG PO2 65 mmHg (85-104); ABG TCO2 33.2 mEq/L (20-26)
[2016-05-19 04:53] LABS: Blood Gas FiO2 40 %; Blood Gas PEEP 5 cm H2O; Blood Gas Respiration Rate 16; Blood Gas VT 460 cc
[2016-05-19] MEDS: *HR* Heparin 5,000 UNIT/ML VIAL SQ SCH ×3 (05:18→20:12)
[2016-05-19] MEDS: Insulin LISPRO 300 UNITS/3 ML VIAL SQ SCH ×4 (05:18→22:55)
--- NOTE | 2016-05-19 06:52 | Pulmonology Progress Note ---
<Sedrick Hargrove W - Last Filed: 05/19/16 10:30> Objective PUL Vital signs: Last Vital Signs Temp 98.3 F 05/19/16 08:00 Pulse 100 05/19/16 08:00 Resp 26 05/19/16 08:00 BP 181/92 05/19/16 08:00 Pulse Ox 93 L 05/19/16 08:00 Ventilator Settings Ventilator Settings: Ventilator Settings, Last 8 Hours Ventilator Mode VC+ Ventilator Mode VC+ Ventilator Mode VC+ Ventilator Mode VC+ Ventilator Mode VC+ Ventilator Mode VC+ Ventilator Mode VC+ Ventilator Mode VC+ Ventilator Mode VC+ Ventilator Mode VC+ Ventilator Mode VC+ Ventilator Mode VC+ Ventilator Tidal Volume 460 Setting Ventilator Tidal Volume 460 Setting Ventilator Tidal Volume 460 Setting Ventilator Tidal Volume 460 Setting Ventilator Tidal Volume 460 Setting Ventilator Tidal Volume 460 Setting Ventilator Tidal Volume 460 Setting Ventilator Tidal Volume 460 Setting Ventilator Tidal Volume 460 Setting Ventilator Tidal Volume 460 Setting Ventilator Tidal Volume 460 Setting Ventilator Tidal Volume 460 Setting Ventilator Respiratory Rate 16 Setting Ventilator Respiratory Rate 16 Setting Ventilator Respiratory Rate 16 Setting Ventilator Respiratory Rate 16 Setting Ventilator Respiratory Rate 16 Setting Ventilator Respiratory Rate 16 Setting Ventilator Respiratory Rate 16 Setting Ventilator Respiratory Rate 16 Setting Ventilator Respiratory Rate 16 Setting Ventilator Respiratory Rate 16 Setting Ventilator Respiratory Rate 16 Setting Ventilator Respiratory Rate 16 Setting Actual Respiratory Rate 18 Actual Respiratory Rate 18 Actual Respiratory Rate 18 Actual Respiratory Rate 16 Actual Respiratory Rate 16 Actual Respiratory Rate 16 Actual Respiratory Rate 19 Actual Respiratory Rate 19 Actual Respiratory Rate 19 Actual Respiratory Rate 21 Actual Respiratory Rate 19 Positive End Expiratory 5 Pressure Positive End Expiratory 5 Pressure Positive End Expiratory 5 Pressure Positive End Expiratory 5 Pressure Positive End Expiratory 5 Pressure Positive End Expiratory 5 Pressure Positive End Expiratory 5 Pressure Positive End Expiratory 5 Pressure Positive End Expiratory 5 Pressure Positive End Expiratory 5 Pressure Positive End Expiratory 5 Pressure Positive End Expiratory 5 Pressure Peak Inspiratory Airway 25 Pressure Peak Inspiratory Airway 25 Pressure Peak Inspiratory Airway 25 Pressure Peak Inspiratory Airway 33 Pressure Peak Inspiratory Airway 33 Pressure Peak Inspiratory Airway 33 Pressure Peak Inspiratory Airway 27 Pressure Peak Inspiratory Airway 27 Pressure Peak Inspiratory Airway 23 Pressure Results - Laboratory Findings CBC and BMP: 05/19/16 03:44 05/19/16 03:44 ABG ABG pH 7.35 pH Units (7.32-7.45) 05/19/16 04:45 ABG pCO2 57 mmHg (35-45) H 05/19/16 04:45 ABG pO2 65 mmHg (85-104) L 05/19/16 04:45 ABG O2 Saturation 91 % (95-98) L 05/19/16 04:45 Abnormal lab findings: Abnormal lab results WBC 12.6 K/mcL (4.3-11.1) H 05/19/16 03:44 MCHC 30.8 g/dL (31.6-35.5) L 05/19/16 03:44 RDW 15.3 % (11.5-14.5) H 05/19/16 03:44 Neutrophils # 12.0 K/mcL (1.6-8.9) H 05/19/16 03:44 Lymphocytes # 0.2 K/mcL (0.6-4.6) L 05/19/16 03:44 Nucleated RBCs/100 WBC 0.1 /100 WBC (0) H 05/16/16 01:29 Toxic Granulation Present (Not Present) A 05/19/16 03:44 Toxic Vacuolation Present (Not Present) A 05/19/16 03:44 ABG pCO2 57 mmHg (35-45) H 05/19/16 04:45 ABG pO2 65 mmHg (85-104) L 05/19/16 04:45 ABG HCO3 31.5 mEQ/L (21-27) H 05/19/16 04:45 ABG Total CO2 33.2 mEq/L (20-26) H 05/19/16 04:45 ABG O2 Saturation 91 % (95-98) L 05/19/16 04:45 ABG Base Excess 4.4 mEq/L (-2.0 to 3.0) H 05/19/16 04:45 Potassium 4.7 mEq/L (3.5-4.5) H 05/19/16 03:44 BUN 59 mg/dL (7-20) H 05/19/16 03:44 BUN/Creatinine Ratio 77 (6-26) H 05/19/16 03:44 Glucose 246 mg/dL (70-99) H 05/19/16 03:44 POC Glucose 247 (58-89) H 05/18/16 23:17 Calculated Osmolality 311 (280-300) H 05/19/16 03:44 Influenza Type B (PCR) DETECTED (Not Detect) A 05/17/16 05:30 - Clinical Findings Intake & Output: Intake & Output 05/18/16 05/19/16 05/19/16 23:59 07:59 15:59 Intake Total 811 / 811 591 / 591 Output Total 1400 / 1400 850 / 850 Balance -589 / -589 -259 / -259 Weight 74.208 kg Consult Discharge Plan - Plan Referrals: NO,PCP [Primary Care Provider] - - Attending Attestation I examined this patient and my medical decision-making was reviewed with the ENTERTAINMENT & MEDIA CORRESPONDENT/PA/Advanced Practice Nurse/Resident Physician. I agree with the documented findings, disposition and treatment plan as described except to the extent set forth below. Patient seen and examined at bedside Labs, radiology, chart personally reviewed. All lines examined without evidence of infection. Neuropsych: sedation for agitation but much more awake today and able to nod head and follow commands. Goal Milo 3 Pulm: acute on chronic hypoxic respiratory failure s/t to PNA with COPD exacerbation. Better ventilation failed SBT trial today. swithc back to VC+. Cards: MAP goal 60 no pressors needed. cont to monitor on tele. New Tachycardic and hypertension ?anxiety check ecg, bnp and trop. start BB. restart clonidine. FEN-GI: Cont Enteral fluids. cont PPI for GI prophylaxis add Bowel regimen. Renal: BUN/Cretinine rising with conentrated urine - give gentle crystalloid replacement. ID: Influenza B+ started on tamiflu, Cont azithro x 5 days Heme/Onc: cont DVT propylaxis with Sub Q heparin Endo: glucose monitroed titrate basal bolus insulin dosing Integ/MSK: skin care per ICU protocol. CODE: Full code. <Tony Knight - Last Filed: 05/19/16 10:47> Date of Encounter: 05/19/16 Time of Encounter: 06:52 Assessment and Plan (1) Acute on chronic respiratory failure with hypoxia and hypercapnia Current Visit: Yes Status: Acute Currently patient is satting 94% on FiO2 60%, respiratory rate 16 and PEEP of 5 , ABG this morning showed slight increase in pH and PCO2 compared to yesterday. Acute on chronic respiratory failure with hypoxia and hypercapnia secondary to acute exacerbation of COPD from underlying influenza B infection, will continue the treatment for influenza B infection and COPD exacerbation regimen of DuoNeb, Symbicort, IV azithromycin, and IV steroid. (2) Tachycardia Current Visit: Yes Status: Acute When propofol was off she became more anxious and trying to pull the ET tube, became tachycardic to 150 bpm, propofol IV was put back on, HR came down to 120 , now up to 140, will obtain stat chest x-ray to r/o pulm edema, possible underlying cardiac etiology playing role, she does have hx of HTN and takes clonidine and norvasc at home, currently she is hypertensive, will put her back on clonidine TID, and start her on coreg, will obtain stat troponin, BNP, chest x-ray along with ECG, based on ECG, we might obtain ECHO, will con't to closely monitor her VS. (3) Acute exacerbation of chronic obstructive pulmonary disease Current Visit: Yes Status: Acute Acute exacerbation of COPD likely secondary to influenza B infection, currently patient is intubated on mechanical ventilation, continue DuoNeb every 4 hours, Symbicort, and Solu-Medrol 60 mg IV every 8 hours. Sputum culture came back gram-positive cocci, currently on azithromycin IV, leukocytosis improved and no overnight fever, will continue current antibiotic until final culture sensitivity comes back. (4) Influenza B Current Visit: Yes Status: Acute This was a positive on PCR test, therefore she was started on Tamiflu today for total of 5 days. (5) Leukocytosis Current Visit: Yes Status: Acute Leukocytosis improved compare to yesterday, this could be reactive from COPD exacerbation versus underlying infection, influenza B was positive. Sputum culture came back gram-positive cocci, no overnight fever, will continue current antibiotic until final culture sensitivity comes back, currently on tamiflu and azithromycin IV, continued to monitor white count. Qualifiers: Qualified Code(s): D72.829 - Elevated white blood cell count, unspecified (6) DM (diabetes mellitus), type 2 Current Visit: Yes Status: Acute Last hemoglobin A1c was 7.8 on 03/25/2015, currently on IV steroids and she has been hyperglycemic, will add Levemir 10 units at bedtime on top of current high sliding scale insulin every 6 hours. Qualifiers: Qualified Code(s): E11.9 - Type 2 diabetes mellitus without complications (7) DVT prophylaxis Current Visit: Yes Status: Acute Heparin subcutaneous 3 times a day. Subjective Principal diagnosis: Acute on chronic hypoxic and hypercapnic respiratory failure Interval history: This is a 56 years old female with a history of COPD on home oxygen and BiPAP at night came into the ER with chief complaint of progressive worsening of shortness of breath and productive cough, patient was intubated on medical floor and transferred to ICU yesterday. Patient seen and examined. No acute event overnight, and when propofol was off , heart rate became tachycardic, patient was more awake and trying to pull the ET tube, more anxious, propofol was put back on, now she is more calm, she will open her eyes to voice and squeeze hands. Objective PUL Vital signs: Last Vital Signs Temp 97.8 F 05/19/16 04:00 Pulse 77 05/19/16 06:00 Resp 18 05/19/16 06:07 BP 114/67 05/19/16 06:07 Pulse Ox 93 L 05/19/16 06:07 General appearance: no acute distress, other (On IV sedation) Eyes: nonicteric ENT: oropharynx moist Neck: supple, no lymphadenopathy Effort: normal Auscultation: bilateral: diminished breath sounds (Slightly at base) Cardiovascular: other (Regular rhythm but tachycardic) Gastrointestinal: normoactive bowel sounds, soft, non-distended Integumentary: normal Extremities: no cyanosis, no edema Musculoskeletal: no deformities pupils equal and round, other (On IV sedation) Ventilator Settings Ventilator Settings: Ventilator Settings, Last 8 Hours Ventilator Mode VC+ Ventilator Mode VC+ Ventilator Mode VC+ Ventilator Mode VC+ Ventilator Mode VC+ Ventilator Mode VC+ Ventilator Mode VC+ Ventilator Mode VC+ Ventilator Mode VC+ Ventilator Mode VC+ Ventilator Mode VC+ Ventilator Mode VC+ Ventilator Mode VC+ Ventilator Tidal Volume 460 Setting Ventilator Tidal Volume 460 Setting Ventilator Tidal Volume 460 Setting Ventilator Tidal Volume 460 Setting Ventilator Tidal Volume 460 Setting Ventilator Tidal Volume 460 Setting Ventilator Tidal Volume 460 Setting Ventilator Tidal Volume 460 Setting Ventilator Tidal Volume 460 Setting Ventilator Tidal Volume 460 Setting Ventilator Tidal Volume 460 Setting Ventilator Tidal Volume 460 Setting Ventilator Tidal Volume 460 Setting Ventilator Respiratory Rate 16 Setting Ventilator Respiratory Rate 16 Setting Ventilator Respiratory Rate 16 Setting Ventilator Respiratory Rate 16 Setting Ventilator Respiratory Rate 16 Setting Ventilator Respiratory Rate 16 Setting Ventilator Respiratory Rate 16 Setting Ventilator Respiratory Rate 16 Setting Ventilator Respiratory Rate 16 Setting Ventilator Respiratory Rate 16 Setting Ventilator Respiratory Rate 16 Setting Ventilator Respiratory Rate 16 Setting Ventilator Respiratory Rate 16 Setting Actual Respiratory Rate 16 Actual Respiratory Rate 16 Actual Respiratory Rate 16 Actual Respiratory Rate 19 Actual Respiratory Rate 19 Actual Respiratory Rate 19 Actual Respiratory Rate 21 Actual Respiratory Rate 19 Actual Respiratory Rate 16 Actual Respiratory Rate 16 Actual Respiratory Rate 16 Actual Respiratory Rate 17 Positive End Expiratory 5 Pressure Positive End Expiratory 5 Pressure Positive End Expiratory 5 Pressure Positive End Expiratory 5 Pressure Positive End Expiratory 5 Pressure Positive End Expiratory 5 Pressure Positive End Expiratory 5 Pressure Positive End Expiratory 5 Pressure Positive End Expiratory 5 Pressure Positive End Expiratory 5 Pressure Positive End Expiratory 5 Pressure Positive End Expiratory 5 Pressure Positive End Expiratory 5 Pressure Peak Inspiratory Airway 33 Pressure Peak Inspiratory Airway 33 Pressure Peak Inspiratory Airway 33 Pressure Peak Inspiratory Airway 27 Pressure Peak Inspiratory Airway 27 Pressure Peak Inspiratory Airway 23 Pressure Peak Inspiratory Airway 23 Pressure Peak Inspiratory Airway 23 Pressure Peak Inspiratory Airway 22 Pressure Peak Inspiratory Airway 22 Pressure Results - Laboratory Findings CBC and BMP: 05/19/16 03:44 05/19/16 03:44 ABG ABG pH 7.35 pH Units (7.32-7.45) 05/19/16 04:45 ABG pCO2 57 mmHg (35-45) H 05/19/16 04:45 ABG pO2 65 mmHg (85-104) L 05/19/16 04:45 ABG O2 Saturation 91 % (95-98) L 05/19/16 04:45 Abnormal lab findings: Abnormal lab results WBC 12.6 K/mcL (4.3-11.1) H 05/19/16 03:44 MCHC 30.8 g/dL (31.6-35.5) L 05/19/16 03:44 RDW 15.3 % (11.5-14.5) H 05/19/16 03:44 Neutrophils # 12.0 K/mcL (1.6-8.9) H 05/19/16 03:44 Lymphocytes # 0.2 K/mcL (0.6-4.6) L 05/19/16 03:44 Nucleated RBCs/100 WBC 0.1 /100 WBC (0) H 05/16/16 01:29 Toxic Granulation Present (Not Present) A 05/19/16 03:44 Toxic Vacuolation Present (Not Present) A 05/19/16 03:44 ABG pCO2 57 mmHg (35-45) H 05/19/16 04:45 ABG pO2 65 mmHg (85-104) L 05/19/16 04:45 ABG HCO3 31.5 mEQ/L (21-27) H 05/19/16 04:45 ABG Total CO2 33.2 mEq/L (20-26) H 05/19/16 04:45 ABG O2 Saturation 91 % (95-98) L 05/19/16 04:45 ABG Base Excess 4.4 mEq/L (-2.0 to 3.0) H 05/19/16 04:45 Potassium 4.7 mEq/L (3.5-4.5) H 05/19/16 03:44 BUN 59 mg/dL (7-20) H 05/19/16 03:44 BUN/Creatinine Ratio 77 (6-26) H 05/19/16 03:44 Glucose 246 mg/dL (70-99) H 05/19/16 03:44 POC Glucose 247 (58-89) H 05/18/16 23:17 Calculated Osmolality 311 (280-300) H 05/19/16 03:44 Influenza Type B (PCR) DETECTED (Not Detect) A 05/17/16 05:30 - Clinical Findings Intake & Output: Intake & Output 05/18/16 05/18/16 05/19/16 15:59 23:59 07:59 Intake Total 1515 / 1515 811 / 811 591 / 591 Output Total 350 / 350 1400 / 1400 150 / 150 Balance 1165 / 1165 -589 / -589 441 / 441 Weight 74.208 kg
[2016-05-19] MEDS: Budesonide/Formoterol 160/4.5 MDI IH SCH ×2 (07:24→19:48)
[2016-05-19] MEDS: Aspirin Enteric Coated 81 MG Tablet PO SCH (09:00)
[2016-05-19] MEDS: Chlorhexidine Rinse 15 ML MOUTHWASH MM SCH ×2 (09:00→20:12)
[2016-05-19] MEDS: Pantoprazole 40 MG VIAL IVP SCH (09:00)
[2016-05-19] MEDS: methylPREDNISolone 125 MG/2 ML VIAL IVP SCH ×3 (09:00→22:54)
[2016-05-19] MEDS: Azithromycin 500 MG in D5% in Water 250 ML IVPB SCH (09:58)
[2016-05-19] MEDS ORDERED: cloNIDine HCl 0.1 MG TABLET PO SCH (10:45)
[2016-05-19] MEDS ORDERED: *HR* Metoprolol 5 MG/5 ML VIAL IVP ONE (11:22)
[2016-05-19] MEDS: Ipratropium Neb 0.5 MG NEBULIZER IH SCH ×4 (11:23→23:34)
[2016-05-19] MEDS: Levalbuterol Neb 1.25 MG/3 ML IH SCH ×4 (11:23→23:34)
[2016-05-19] MEDS: hydrALAZINE 25 MG TABLET PO SCH ×3 (11:28→22:54)
[2016-05-19] MEDS: Nicotine 14 MG PATCH.TD24 TD SCH (12:27)
[2016-05-19] MEDS ORDERED: Insulin DETEMIR 100 UNIT/ML X5UNITS SQ SCH (21:00)
[2016-05-20] MEDS: Dexmedetomidine HCl 400 MCG/100 ML MLS IVC SCH ×3 (02:35→22:05)
[2016-05-20] MEDS: Lacri-Lube 3.5 GM TUBE BOTH EYES SCH ×5 (02:56→19:18)
[2016-05-20] MEDS: Levalbuterol Neb 1.25 MG/3 ML IH SCH ×6 (03:45→23:34)
[2016-05-20] MEDS: Ipratropium Neb 0.5 MG NEBULIZER IH SCH ×6 (03:45→23:34)
[2016-05-20 04:07] LABS: Basophils % 0.1 %; Hematocrit 43.1 % (35.3-44.9); Hemoglobin 13.1 g/dL (11.5-15.4); Immature Granulocytes % 0.5 % (0-4); Lymphocytes # 0.5 K/mcL (0.6-4.6); Lymphocytes % 5.8 %; Mean Corpuscular HGB Conc 30.4 g/dL (31.6-35.5); Mean Corpuscular Hemoglobin 29.8 pg (28.0-33.3); Mean Corpuscular Volume 98.2 fL (83.0-100.0); Mean Platelet Volume 10.3 fL (9.4-12.4); Monocytes # 0.3 K/mcL (0.0-1.3); Monocytes % 3.1 %; Neutrophils # 8.3 K/mcL (1.6-8.9); Platelet Count 194 K/mcL (140-400); Red Blood Count 4.39 M/mcL (3.82-4.97); Red Cell Distribution Width 15.4 % (11.5-14.5); Segmented Neutrophils % 90.5 %
[2016-05-20 04:45] LABS: ABG HCO3 36.7 mEQ/L (21-27); ABG Oxygen Saturation 90 % (95-98); ABG PCO2 68 mmHg (35-45); ABG PH 7.34 pH Units (7.32-7.45); ABG PO2 62 mmHg (85-104); ABG TCO2 38.8 mEq/L (20-26); Blood Gas FiO2 50 %; Blood Gas PEEP 5 cm H2O
[2016-05-20] MEDS: Insulin LISPRO 300 UNITS/3 ML VIAL SQ SCH ×4 (05:14→19:20)
[2016-05-20] MEDS: *HR* Heparin 5,000 UNIT/ML VIAL SQ SCH ×3 (05:16→21:29)
[2016-05-20] MEDS: FentaNYL (PF) 3,000 MCG in 0.9 % Sodium Chloride 240 ML IVC SCH ×2 (06:23→19:22)
[2016-05-20 06:38] LABS: BUN/Creatinine Ratio 65 (6-26); Blood Urea Nitrogen 48 mg/dL (7-20); Calcium 8.8 mg/dL (8.6-10.8); Carbon Dioxide 28 mEq/L (19-29); Chloride 102 mEq/L (98-109); Glucose 365 mg/dL (70-99); Osmolality,Calculated 315 (280-300); Potassium 5.5 mEq/L (3.5-4.5); Sodium 139 mEq/L (136-145); eGFR For African Americans > 60 (> 60); eGFR For Non-African Americans > 60 (> 60)
--- NOTE | 2016-05-20 06:58 | Pulmonology Progress Note ---
<Tony Knight - Last Filed: 05/20/16 10:56> Date of Encounter: 05/19/16 Time of Encounter: 06:58 Assessment and Plan (1) Acute on chronic respiratory failure with hypoxia and hypercapnia Current Visit: Yes Status: Acute Currently patient is satting 93% on FiO2 40, respiratory rate 16 and PEEP of 5, ABG this morning showed slight decrease in pH and increase in PCO2 compared to yesterday. Her tachycardia is likely due to anxiety whenever we try to wean her off of sedation therefore order for versed IV prn placed and will start her on seroquel BID, EKG showed no QT prolongation, we will try breathing trial when pt is more awake, calmer, wean more off of sedation. Acute on chronic respiratory failure with hypoxia and hypercapnia secondary to acute exacerbation of COPD from underlying influenza B infection, will continue the treatment for influenza B infection and COPD exacerbation regimen of DuoNeb, Symbicort, and switch to PO steroid. (2) Tachycardia Current Visit: Yes Status: Acute This happens whenever we tried to wean her off of sedation, the chest x-ray from yesterday showed no acute process, BNP and troponin were normal, EKG showed sinus tachycardia with no QT prolongation, we started her on Coreg and hydralazine yesterday, will place order for Versed IV prn and Seroquel BID started today, currently her heart rate is stable, we will continue to closely monitor her vital sign. (3) Acute exacerbation of chronic obstructive pulmonary disease Current Visit: Yes Status: Acute Acute exacerbation of COPD likely secondary to influenza B infection, currently patient is intubated on mechanical ventilation, continue DuoNeb every 4 hours, Symbicort, and switch to po steroid. Sputum culture came back strep pneumo, completed azithromycin IV, stopped today, leukocytosis resolved and no overnight fever. (4) Influenza B Current Visit: Yes Status: Acute This was a positive on PCR test, therefore she was started on Tamiflu today for total of 5 days. (5) Leukocytosis Current Visit: Yes Status: Acute Resolved, this could be reactive from COPD exacerbation versus underlying infection, influenza B was positive. Sputum culture came back strep pneumo, no overnight fever, completed azithromycin IV, currently on tamiflu for total of 5 days, continued to monitor white count. Qualifiers: Qualified Code(s): D72.829 - Elevated white blood cell count, unspecified (6) DM (diabetes mellitus), type 2 Current Visit: Yes Status: Acute Last hemoglobin A1c was 7.8 on 03/25/2015, still hyperglycemic, will switch to PO steroid, increase levemir to 20 units HS, change to q4hrs high SSI. Qualifiers: Qualified Code(s): E11.9 - Type 2 diabetes mellitus without complications (7) DVT prophylaxis Current Visit: Yes Status: Acute Heparin subcutaneous 3 times a day. Subjective Principal diagnosis: Acute on chronic hypoxic and hypercapnic respiratory failure Interval history: This is a 56 years old female with a history of COPD on home oxygen and BiPAP at night came into the ER with chief complaint of progressive worsening of shortness of breath and productive cough, patient was intubated on medical floor and transferred to ICU. Patient seen and examined. No acute event overnight except whenever we try to wean off the sedation she became tachycardic and hypertensive, likely this is due to anxiety, therefore versed and seroquel given this morning. Objective PUL Vital signs: Last Vital Signs Temp 98.2 F 05/20/16 03:51 Pulse 131 05/20/16 05:41 Resp 18 05/20/16 05:50 BP 163/89 05/20/16 05:50 Pulse Ox 93 L 05/20/16 05:50 General appearance: no acute distress, other (On IV sedation) Eyes: nonicteric ENT: oropharynx moist Neck: supple Effort: normal Auscultation: bilateral: diminished breath sounds (Slightly at base) Cardiovascular: regular rate and rhythm Gastrointestinal: normoactive bowel sounds, soft, non-distended Integumentary: normal Extremities: no cyanosis, no edema Musculoskeletal: no deformities pupils equal and round, other (On IV sedation) Ventilator Settings Ventilator Settings: Ventilator Settings, Last 8 Hours Ventilator Mode VC+ Ventilator Mode VC+ Ventilator Mode VC+ Ventilator Mode VC+ Ventilator Mode A/C Ventilator Mode A/C Ventilator Mode A/C Ventilator Mode A/C Ventilator Mode A/C Ventilator Mode A/C Ventilator Mode A/C Ventilator Mode A/C Ventilator Tidal Volume 460 Setting Ventilator Tidal Volume 460 Setting Ventilator Tidal Volume 460 Setting Ventilator Tidal Volume 460 Setting Ventilator Tidal Volume 460 Setting Ventilator Tidal Volume 460 Setting Ventilator Tidal Volume 460 Setting Ventilator Tidal Volume 460 Setting Ventilator Tidal Volume 460 Setting Ventilator Tidal Volume 460 Setting Ventilator Tidal Volume 460 Setting Ventilator Tidal Volume 460 Setting Ventilator Respiratory Rate 16 Setting Ventilator Respiratory Rate 16 Setting Ventilator Respiratory Rate 16 Setting Ventilator Respiratory Rate 16 Setting Ventilator Respiratory Rate 16 Setting Ventilator Respiratory Rate 16 Setting Ventilator Respiratory Rate 16 Setting Ventilator Respiratory Rate 16 Setting Ventilator Respiratory Rate 16 Setting Ventilator Respiratory Rate 16 Setting Ventilator Respiratory Rate 16 Setting Ventilator Respiratory Rate 16 Setting Actual Respiratory Rate 18 Actual Respiratory Rate 19 Actual Respiratory Rate 22 Actual Respiratory Rate 16 Actual Respiratory Rate 16 Actual Respiratory Rate 16 Actual Respiratory Rate 16 Actual Respiratory Rate 16 Actual Respiratory Rate 16 Actual Respiratory Rate 16 Actual Respiratory Rate 18 Positive End Expiratory 5 Pressure Positive End Expiratory 5 Pressure Positive End Expiratory 5 Pressure Positive End Expiratory 5 Pressure Positive End Expiratory 5 Pressure Positive End Expiratory 5 Pressure Positive End Expiratory 5 Pressure Positive End Expiratory 5 Pressure Positive End Expiratory 5 Pressure Positive End Expiratory 5 Pressure Positive End Expiratory 5 Pressure Positive End Expiratory 5 Pressure Peak Inspiratory Airway 28 Pressure Peak Inspiratory Airway 11 Pressure Peak Inspiratory Airway 13 Pressure Peak Inspiratory Airway 43 Pressure Peak Inspiratory Airway 29 Pressure Peak Inspiratory Airway 28 Pressure Peak Inspiratory Airway 27 Pressure Peak Inspiratory Airway 26 Pressure Peak Inspiratory Airway 31 Pressure Peak Inspiratory Airway 24 Pressure Peak Inspiratory Airway 21 Pressure Results - Laboratory Findings CBC and BMP: 05/20/16 03:58 05/20/16 05:33 ABG ABG pH 7.34 pH Units (7.32-7.45) 05/20/16 04:37 ABG pCO2 68 mmHg (35-45) H 05/20/16 04:37 ABG pO2 62 mmHg (85-104) L 05/20/16 04:37 ABG O2 Saturation 90 % (95-98) L 05/20/16 04:37 Abnormal lab findings: Abnormal lab results MCHC 30.4 g/dL (31.6-35.5) L 05/20/16 03:58 RDW 15.4 % (11.5-14.5) H 05/20/16 03:58 Lymphocytes # 0.5 K/mcL (0.6-4.6) L 05/20/16 03:58 Nucleated RBCs/100 WBC 0.1 /100 WBC (0) H 05/16/16 01:29 Toxic Granulation Present (Not Present) A 05/19/16 03:44 Toxic Vacuolation Present (Not Present) A 05/19/16 03:44 ABG pCO2 68 mmHg (35-45) H 05/20/16 04:37 ABG pO2 62 mmHg (85-104) L 05/20/16 04:37 ABG HCO3 36.7 mEQ/L (21-27) H 05/20/16 04:37 ABG Total CO2 38.8 mEq/L (20-26) H 05/20/16 04:37 ABG O2 Saturation 90 % (95-98) L 05/20/16 04:37 ABG Base Excess 8.0 mEq/L (-2.0 to 3.0) H 05/20/16 04:37 Potassium 5.5 mEq/L (3.5-4.5) H 05/20/16 05:33 BUN 48 mg/dL (7-20) H D 05/20/16 05:33 BUN/Creatinine Ratio 65 (6-26) H 05/20/16 05:33 Glucose 365 mg/dL (70-99) H 05/20/16 05:33 POC Glucose 294 (58-89) H 05/20/16 05:13 Calculated Osmolality 315 (280-300) H 05/20/16 05:33 Influenza Type B (PCR) DETECTED (Not Detect) A 05/17/16 05:30 - Clinical Findings Intake & Output: Intake & Output 05/19/16 05/19/16 05/20/16 15:59 23:59 07:59 Intake Total 659 / 659 1357 / 1357 773 / 773 Output Total 450 / 450 800 / 800 500 / 500 Balance 209 / 209 557 / 557 273 / 273 Weight 73.346 kg Consult Discharge Plan - Plan Referrals: NO,PCP [Primary Care Provider] - <Sedrick Hargrove W - Last Filed: 05/20/16 16:42> Date of Encounter: 05/19/16 Objective PUL Vital signs: Last Vital Signs Temp 98.7 F 05/20/16 07:30 Pulse 131 05/20/16 05:41 Resp 16 05/20/16 08:02 BP 143/73 05/20/16 08:02 Pulse Ox 93 L 05/20/16 08:02 Ventilator Settings Ventilator Settings: Ventilator Settings, Last 8 Hours Ventilator Mode VC+ Ventilator Mode VC+ Ventilator Mode VC+ Ventilator Mode VC+ Ventilator Mode VC+ Ventilator Mode A/C Ventilator Mode A/C Ventilator Mode A/C Ventilator Mode A/C Ventilator Mode A/C Ventilator Tidal Volume 460 Setting Ventilator Tidal Volume 460 Setting Ventilator Tidal Volume 460 Setting Ventilator Tidal Volume 460 Setting Ventilator Tidal Volume 460 Setting Ventilator Tidal Volume 460 Setting Ventilator Tidal Volume 460 Setting Ventilator Tidal Volume 460 Setting Ventilator Tidal Volume 460 Setting Ventilator Tidal Volume 460 Setting Ventilator Respiratory Rate 16 Setting Ventilator Respiratory Rate 16 Setting Ventilator Respiratory Rate 16 Setting Ventilator Respiratory Rate 16 Setting Ventilator Respiratory Rate 16 Setting Ventilator Respiratory Rate 16 Setting Ventilator Respiratory Rate 16 Setting Ventilator Respiratory Rate 16 Setting Ventilator Respiratory Rate 16 Setting Ventilator Respiratory Rate 16 Setting Actual Respiratory Rate 16 Actual Respiratory Rate 18 Actual Respiratory Rate 19 Actual Respiratory Rate 22 Actual Respiratory Rate 16 Actual Respiratory Rate 16 Actual Respiratory Rate 16 Actual Respiratory Rate 16 Actual Respiratory Rate 16 Positive End Expiratory 5 Pressure Positive End Expiratory 5 Pressure Positive End Expiratory 5 Pressure Positive End Expiratory 5 Pressure Positive End Expiratory 5 Pressure Positive End Expiratory 5 Pressure Positive End Expiratory 5 Pressure Positive End Expiratory 5 Pressure Positive End Expiratory 5 Pressure Positive End Expiratory 5 Pressure Peak Inspiratory Airway 24 Pressure Peak Inspiratory Airway 28 Pressure Peak Inspiratory Airway 11 Pressure Peak Inspiratory Airway 13 Pressure Peak Inspiratory Airway 43 Pressure Peak Inspiratory Airway 29 Pressure Peak Inspiratory Airway 28 Pressure Peak Inspiratory Airway 27 Pressure Peak Inspiratory Airway 26 Pressure Results - Laboratory Findings CBC and BMP: 05/20/16 03:58 05/20/16 05:33 ABG ABG pH 7.34 pH Units (7.32-7.45) 05/20/16 04:37 ABG pCO2 68 mmHg (35-45) H 05/20/16 04:37 ABG pO2 62 mmHg (85-104) L 05/20/16 04:37 ABG O2 Saturation 90 % (95-98) L 05/20/16 04:37 Abnormal lab findings: Abnormal lab results MCHC 30.4 g/dL (31.6-35.5) L 05/20/16 03:58 RDW 15.4 % (11.5-14.5) H 05/20/16 03:58 Lymphocytes # 0.5 K/mcL (0.6-4.6) L 05/20/16 03:58 Nucleated RBCs/100 WBC 0.1 /100 WBC (0) H 05/16/16 01:29 Toxic Granulation Present (Not Present) A 05/19/16 03:44 Toxic Vacuolation Present (Not Present) A 05/19/16 03:44 ABG pCO2 68 mmHg (35-45) H 05/20/16 04:37 ABG pO2 62 mmHg (85-104) L 05/20/16 04:37 ABG HCO3 36.7 mEQ/L (21-27) H 05/20/16 04:37 ABG Total CO2 38.8 mEq/L (20-26) H 05/20/16 04:37 ABG O2 Saturation 90 % (95-98) L 05/20/16 04:37 ABG Base Excess 8.0 mEq/L (-2.0 to 3.0) H 05/20/16 04:37 Potassium 5.5 mEq/L (3.5-4.5) H 05/20/16 05:33 BUN 48 mg/dL (7-20) H D 05/20/16 05:33 BUN/Creatinine Ratio 65 (6-26) H 05/20/16 05:33 Glucose 365 mg/dL (70-99) H 05/20/16 05:33 POC Glucose 294 (58-89) H 05/20/16 05:13 Calculated Osmolality 315 (280-300) H 05/20/16 05:33 Influenza Type B (PCR) DETECTED (Not Detect) A 05/17/16 05:30 - Clinical Findings Intake & Output: Intake & Output 05/19/16 05/20/16 05/20/16 23:59 07:59 15:59 Intake Total 1357 / 1357 773 / 773 Output Total 800 / 800 825 / 825 Balance 557 / 557 -52 / -52 Weight 73.346 kg - Attending Attestation I examined this patient and my medical decision-making was reviewed with the WOOL BU[employer]ER/PA/Advanced Practice Nurse/Resident Physician. I agree with the documented findings, disposition and treatment plan as described except to the extent set forth below. Patient seen and examined at bedside Labs, radiology, chart personally reviewed. All lines examined without evidence of infection. Neuropsych: off of sedation remains extremely anxious with increase in BP and HR. Adding basal valium and incresed dose of seroquel reattempt SBT in AM. cont propfol and precedex Pulm: acute on chronic hypoxic respiratory failure s/t to PNA with COPD exacerbation improving. Cont BDs and will switch to enteral steroids Cards: titrate BP meds (clonidine norvasc and coreg). FEN-GI: Cont Enteral fluids. cont PPI for GI prophylaxis add Bowel regimen. Renal: trial diuresis today. ID: Influenza B+ started on tamiflu, Stop azithro kylee for concern of QTC with addition of Seroquel Heme/Onc: cont DVT propylaxis with Sub Q heparin Endo: glucose monitroed cont to titrate basal bolus insulin dosing Integ/MSK: skin care per ICU protocol. CODE: Full code. Family updated at bedside.
[2016-05-20] MEDS ORDERED: Furosemide 20 MG/2 ML VIAL IVP ONE ×2 (07:41→14:00)
[2016-05-20] MEDS: Budesonide/Formoterol 160/4.5 MDI IH SCH ×2 (08:02→19:26)
[2016-05-20] MEDS: Pantoprazole 40 MG VIAL IVP SCH (08:02)
[2016-05-20] MEDS: Chlorhexidine Rinse 15 ML MOUTHWASH MM SCH ×2 (08:02→19:17)
[2016-05-20] MEDS: methylPREDNISolone 125 MG/2 ML VIAL IVP SCH (08:03)
[2016-05-20] MEDS: *HR* Midazolam HCl 2 MG/2 ML VIAL IVP PRN ×3 (08:03→13:44)
[2016-05-20] MEDS: Aspirin Enteric Coated 81 MG Tablet PO SCH (08:04)
[2016-05-20] MEDS ORDERED: Insulin DETEMIR 100 UNIT/ML X5UNITS SQ SCH (10:37)
[2016-05-20] MEDS ORDERED: Bisacodyl 10 MG RECTAL SUPPOSITORY RC ONE (10:37)
[2016-05-20] MEDS: hydrALAZINE 25 MG TABLET PO SCH (11:00)
--- NOTE | 2016-05-20 13:27 | Electrocardiograph Report ---
[address] [place], [place] [address] Test Date: 2016-05-19 Pat Name: Nora Ren Department: 109 Room: [facility] Gender: F Math Tutor: : 1960 Requested By: Nora Wiley Order Number: [id number] Reading MD: Low Cordova MD Measurements Intervals [place] Rate: 135 P: 68 ND: 133 QRS: 59 QRSD: 88 T: 61 QT: 266 QTc: 345 Interpretive Statements SINUS TACHYCARDIA Electronically Signed On 05-20-2016 13:25:41 EDT by Low Cordova MD
[2016-05-20] MEDS: diazePAM 10 MG/2 ML SYRINGE IVP SCH ×2 (15:59→21:29)
[2016-05-20] MEDS: Nicotine 14 MG PATCH.TD24 TD SCH (16:00)
[2016-05-20] MEDS: cloNIDine HCl 0.1 MG TABLET PO SCH ×2 (16:01→19:17)
[2016-05-20] MEDS: Insulin DETEMIR 100 UNIT/ML X5UNITS SQ SCH (19:18)
[2016-05-20 20:00] LABS: BUN/Creatinine Ratio 65 (6-26); Blood Urea Nitrogen 50 mg/dL (7-20); Calcium 8.9 mg/dL (8.6-10.8); Carbon Dioxide 35 mEq/L (19-29); Chloride 94 mEq/L (98-109); Glucose 234 mg/dL (70-99); Osmolality,Calculated 305 (280-300); Potassium 4.9 mEq/L (3.5-4.5); Sodium 137 mEq/L (136-145); eGFR For African Americans > 60 (> 60); eGFR For Non-African Americans > 60 (> 60)
--- NOTE | 2016-05-20 20:09 | Electrocardiograph Report ---
[place] [address] Test Date: 2016-05-20 Pat Name: Nora Ren Department: 109 Room: [facility] Gender: F Technical Designer: JELENA : 1960 Requested By: Nora Wiley Order Number: [id number] Reading MD: Ruddy Burrell MD Measurements Intervals [place] Rate: 81 P: 66 HI: 133 QRS: 61 QRSD: 88 T: 71 QT: 342 QTc: 380 Interpretive Statements SINUS RHYTHM Electronically Signed On 05-20-2016 20:08:06 EDT by Ruddy Burrell MD
[2016-05-21] MEDS: Lacri-Lube 3.5 GM TUBE BOTH EYES SCH ×7 (00:46→23:32)
[2016-05-21] MEDS: Insulin LISPRO 300 UNITS/3 ML VIAL SQ SCH ×7 (00:46→23:32)
[2016-05-21] MEDS: diazePAM 10 MG/2 ML SYRINGE IVP SCH ×3 (04:04→15:48)
[2016-05-21 04:12] LABS: Basophils % 0.1 %; Eosinophils % 0.2 %; Hematocrit 44.1 % (35.3-44.9); Hemoglobin 14.1 g/dL (11.5-15.4); Immature Granulocytes % 0.6 % (0-4); Lymphocytes # 2.1 K/mcL (0.6-4.6); Lymphocytes % 19.1 %; Mean Corpuscular Hemoglobin 30.3 pg (28.0-33.3); Mean Corpuscular Volume 94.8 fL (83.0-100.0); Mean Platelet Volume 10.6 fL (9.4-12.4); Monocytes # 0.8 K/mcL (0.0-1.3); Monocytes % 7.2 %; Neutrophils # 7.8 K/mcL (1.6-8.9); Platelet Count 201 K/mcL (140-400); Red Blood Count 4.65 M/mcL (3.82-4.97); Red Cell Distribution Width 15.2 % (11.5-14.5); Segmented Neutrophils % 72.8 %
[2016-05-21 05:02] LABS: BUN/Creatinine Ratio 79 (6-26); Blood Urea Nitrogen 48 mg/dL (7-20); Calcium 9.1 mg/dL (8.6-10.8); Carbon Dioxide 37 mEq/L (19-29); Chloride 94 mEq/L (98-109); Glucose 104 mg/dL (70-99); Osmolality,Calculated 299 (280-300); Potassium 4.4 mEq/L (3.5-4.5); Sodium 138 mEq/L (136-145); eGFR For African Americans > 60 (> 60); eGFR For Non-African Americans > 60 (> 60)
[2016-05-21] MEDS: *HR* Heparin 5,000 UNIT/ML VIAL SQ SCH ×3 (05:09→20:00)
[2016-05-21] MEDS: Levalbuterol Neb 1.25 MG/3 ML IH SCH ×5 (05:14→20:21)
[2016-05-21] MEDS: Ipratropium Neb 0.5 MG NEBULIZER IH SCH ×5 (05:14→20:21)
[2016-05-21 05:21] LABS: ABG Base Excess 14.4 mEq/L (-2.0 to 3.0); ABG HCO3 41.4 mEQ/L (21-27); ABG Oxygen Saturation 98 % (95-98); ABG PCO2 61 mmHg (35-45); ABG PH 7.44 pH Units (7.32-7.45); ABG PO2 97 mmHg (85-104); ABG TCO2 43.3 mEq/L (20-26); Blood Gas FiO2 50 %
--- NOTE | 2016-05-21 06:57 | Pulmonology Progress Note ---
<BeenaSedrick W - Last Filed: 05/21/16 10:16> Date of Encounter: 05/19/16 Objective PUL Vital signs: Last Vital Signs Temp 98.3 F 05/21/16 07:27 Pulse 105 05/21/16 09:00 Resp 16 05/21/16 09:00 BP 134/84 05/21/16 09:00 Pulse Ox 98 05/21/16 09:00 Ventilator Settings Ventilator Settings: Ventilator Settings, Last 8 Hours Ventilator Mode VC+ Ventilator Mode VC+ Ventilator Mode A/C Ventilator Mode A/C Ventilator Mode A/C Ventilator Mode A/C Ventilator Mode A/C Ventilator Mode A/C Ventilator Mode A/C Ventilator Mode A/C Ventilator Tidal Volume 460 Setting Ventilator Tidal Volume 460 Setting Ventilator Tidal Volume 460 Setting Ventilator Tidal Volume 460 Setting Ventilator Tidal Volume 460 Setting Ventilator Tidal Volume 460 Setting Ventilator Tidal Volume 460 Setting Ventilator Tidal Volume 460 Setting Ventilator Tidal Volume 460 Setting Ventilator Tidal Volume 460 Setting Ventilator Respiratory Rate 16 Setting Ventilator Respiratory Rate 16 Setting Ventilator Respiratory Rate 16 Setting Ventilator Respiratory Rate 16 Setting Ventilator Respiratory Rate 16 Setting Ventilator Respiratory Rate 16 Setting Ventilator Respiratory Rate 16 Setting Ventilator Respiratory Rate 16 Setting Ventilator Respiratory Rate 16 Setting Ventilator Respiratory Rate 16 Setting Actual Respiratory Rate 16 Actual Respiratory Rate 17 Actual Respiratory Rate 18 Actual Respiratory Rate 16 Actual Respiratory Rate 16 Actual Respiratory Rate 16 Actual Respiratory Rate 16 Actual Respiratory Rate 20 Actual Respiratory Rate 20 Positive End Expiratory 5 Pressure Positive End Expiratory 5 Pressure Positive End Expiratory 5 Pressure Positive End Expiratory 5 Pressure Positive End Expiratory 5 Pressure Positive End Expiratory 5 Pressure Positive End Expiratory 5 Pressure Positive End Expiratory 5 Pressure Positive End Expiratory 5 Pressure Positive End Expiratory 5 Pressure Peak Inspiratory Airway 35 Pressure Peak Inspiratory Airway 23 Pressure Peak Inspiratory Airway 22 Pressure Peak Inspiratory Airway 24 Pressure Peak Inspiratory Airway 23 Pressure Peak Inspiratory Airway 23 Pressure Peak Inspiratory Airway 19 Pressure Peak Inspiratory Airway 11 Pressure Peak Inspiratory Airway 11 Pressure Results - Laboratory Findings CBC and BMP: 05/21/16 04:03 05/21/16 04:03 ABG ABG pH 7.44 pH Units (7.32-7.45) 05/21/16 05:13 ABG pCO2 61 mmHg (35-45) H 05/21/16 05:13 ABG pO2 97 mmHg (85-104) 05/21/16 05:13 ABG O2 Saturation 98 % (95-98) 05/21/16 05:13 Abnormal lab findings: Abnormal lab results RDW 15.2 % (11.5-14.5) H 05/21/16 04:03 Nucleated RBCs/100 WBC 0.1 /100 WBC (0) H 05/16/16 01:29 Toxic Granulation Present (Not Present) A 05/19/16 03:44 Toxic Vacuolation Present (Not Present) A 05/19/16 03:44 ABG pCO2 61 mmHg (35-45) H 05/21/16 05:13 ABG HCO3 41.4 mEQ/L (21-27) H 05/21/16 05:13 ABG Total CO2 43.3 mEq/L (20-26) H 05/21/16 05:13 ABG Base Excess 14.4 mEq/L (-2.0 to 3.0) H 05/21/16 05:13 Chloride 94 mEq/L (98-109) L 05/21/16 04:03 Carbon Dioxide 37 mEq/L (19-29) H 05/21/16 04:03 BUN 48 mg/dL (7-20) H 05/21/16 04:03 BUN/Creatinine Ratio 79 (6-26) H 05/21/16 04:03 Glucose 104 mg/dL (70-99) H 05/21/16 04:03 POC Glucose 116 (58-89) H 05/21/16 07:34 Influenza Type B (PCR) DETECTED (Not Detect) A 05/17/16 05:30 - Microbiology Findings Microbiology Findings: Microbiology, Last 48 Hours 05/17/16 05:30 Respiratory Virus Culture - Preliminary Nasopharyngeal - Clinical Findings Intake & Output: Intake & Output 05/20/16 05/21/16 05/21/16 23:59 07:59 15:59 Intake Total 1128 / 1128 718 / 718 Output Total 2350 / 2350 750 / 750 0 / 0 Balance -1222 / -1222 -32 / -32 0 / 0 Consult Discharge Plan - Plan Referrals: NO,PCP [Primary Care Provider] - - Attending Attestation I examined this patient and my medical decision-making was reviewed with the STARTING GATE DRIVER/PA/Advanced Practice Nurse/Resident Physician. I agree with the documented findings, disposition and treatment plan as described except to the extent set forth below. Patient seen and examined at bedside Labs, radiology, chart personally reviewed. All lines examined without evidence of infection. Neuropsych: off of sedation remains extremely anxious with increase in BP and HR. Cont scheduled valium and seroquel reattempt weant propfol cont precedex Pulm: acute on chronic hypoxic respiratory failure s/t to PNA with COPD exacerbation improving. Cont BDs and enteral steroids. SBT trial as able today. Godo oxygenation and ventilation. Decrease RR. Cards: titrate BP meds incrase to 0.3QID clonidine (home dose) cont norvasc and coreg FEN-GI: Cont Enteral fluids. cont PPI for GI prophylaxis cont Bowel regimen. Renal: monitor Lytes daily ID: Influenza B+ cont tamiflu. Unexpectedly cultures + ,for Strep PnA. although clinically quite stable favor treating for 5 days.(ceftriiaxone) ( isolate was resistant to azithro). Heme/Onc: cont DVT propylaxis with Sub Q heparin Endo: glucose monitroed cont to titrate basal bolus insulin dosing (better control today) Integ/MSK: skin care per ICU protocol. CODE: Full code. updated at bedside. <Tony Knight - Last Filed: 05/21/16 11:41> Date of Encounter: 05/21/16 Time of Encounter: 06:57 Assessment and Plan (1) Acute on chronic respiratory failure with hypoxia and hypercapnia Current Visit: Yes Status: Acute Currently patient is satting 96% on FiO2 50, respiratory rate 16 and PEEP of 5, ABG this morning showed no significant change compared to yesterday. Her tachycardia is likely due to anxiety whenever we try to wean her off of sedation therefore we placed her on valium IV scheduled and seroquel BID, EKG showed no QT prolongation, we will try breathing trial when pt is more awake, calmer, wean more off of sedation. Acute on chronic respiratory failure with hypoxia and hypercapnia secondary to acute exacerbation of COPD from underlying influenza B infection, will continue the treatment for influenza B infection and COPD exacerbation regimen of DuoNeb, Symbicort, abx, and PO steroid. (2) Tachycardia Current Visit: Yes Status: Acute This happens whenever we tried to wean her off of sedation, the chest x-ray showed no acute process, BNP and troponin were normal, EKG showed sinus tachycardia with no QT prolongation, we started her on Coreg, placed order for scheduled valium IV and Seroquel BId, currently her heart rate is stable, we will continue to closely monitor her vital sign. (3) Acute exacerbation of chronic obstructive pulmonary disease Current Visit: Yes Status: Acute Acute exacerbation of COPD likely secondary to influenza B infection, currently patient is intubated on mechanical ventilation, continue DuoNeb every 4 hours, Symbicort, and switch to po steroid. Sputum culture came back strep pneumo, sensitive to rocephin, will switch to rocephin IV today, clinically does not look infected currently, will send strep pneumo urinary antigen today as well. (4) HTN (hypertension) Current Visit: Yes Status: Acute According to her family member, she has hx of uncontrolled HTN, takes multiple antihypertensive meds at home, hx of renal artery stenosis s/p stent placement, will resume her home dosage of clonidine 0.3 QID on top of coreg, trying to wean her off of sedation more, BP stable now, will con't to closely monitor her VS. Qualifiers: Qualified Code(s): I10 - Essential (primary) hypertension (5) Influenza B Current Visit: Yes Status: Acute This was a positive on PCR test, therefore she was started on Tamiflu for total of 5 days. (6) DM (diabetes mellitus), type 2 Current Visit: Yes Status: Acute Last hemoglobin A1c was 7.8 on 03/25/2015, glucose stable, switched to PO steroid, con't levemir of 20 units HS and q4hrs high SSI. Qualifiers: Qualified Code(s): E11.9 - Type 2 diabetes mellitus without complications (7) DVT prophylaxis Current Visit: Yes Status: Acute Heparin subcutaneous 3 times a day. Subjective Principal diagnosis: Acute on chronic hypoxic and hypercapnic respiratory failure Interval history: This is a 56 years old female with a history of COPD on home oxygen and BiPAP at night came into the ER with chief complaint of progressive worsening of shortness of breath and productive cough, patient was intubated on medical floor and transferred to ICU. Patient seen and examined. No acute event overnight except whenever we try to wean off the sedation she became tachycardic and hypertensive, likely this is due to anxiety, clonidine home dosage restarted this AM. Objective PUL Vital signs: Last Vital Signs Temp 98.7 F 05/21/16 03:57 Pulse 87 05/21/16 05:53 Resp 16 05/21/16 05:53 BP 91/59 05/21/16 05:53 Pulse Ox 96 05/21/16 05:53 General appearance: no acute distress, other (On IV sedation) Eyes: nonicteric ENT: oropharynx moist Neck: supple Effort: normal Auscultation: bilateral: diminished breath sounds (slightly at base) Cardiovascular: regular rate and rhythm Gastrointestinal: normoactive bowel sounds, soft, non-distended Integumentary: normal Extremities: no cyanosis, no edema Musculoskeletal: no deformities other (On IV sedation) Ventilator Settings Ventilator Settings: Ventilator Settings, Last 8 Hours Ventilator Mode A/C Ventilator Mode A/C Ventilator Mode A/C Ventilator Mode A/C Ventilator Mode A/C Ventilator Mode A/C Ventilator Mode A/C Ventilator Mode A/C Ventilator Mode A/C Ventilator Mode A/C Ventilator Mode A/C Ventilator Tidal Volume 460 Setting Ventilator Tidal Volume 460 Setting Ventilator Tidal Volume 460 Setting Ventilator Tidal Volume 460 Setting Ventilator Tidal Volume 460 Setting Ventilator Tidal Volume 460 Setting Ventilator Tidal Volume 460 Setting Ventilator Tidal Volume 460 Setting Ventilator Tidal Volume 460 Setting Ventilator Tidal Volume 460 Setting Ventilator Tidal Volume 460 Setting Ventilator Respiratory Rate 16 Setting Ventilator Respiratory Rate 16 Setting Ventilator Respiratory Rate 16 Setting Ventilator Respiratory Rate 16 Setting Ventilator Respiratory Rate 16 Setting Ventilator Respiratory Rate 16 Setting Ventilator Respiratory Rate 16 Setting Ventilator Respiratory Rate 16 Setting Ventilator Respiratory Rate 16 Setting Ventilator Respiratory Rate 16 Setting Ventilator Respiratory Rate 16 Setting Actual Respiratory Rate 16 Actual Respiratory Rate 16 Actual Respiratory Rate 16 Actual Respiratory Rate 16 Actual Respiratory Rate 20 Actual Respiratory Rate 20 Actual Respiratory Rate 16 Actual Respiratory Rate 16 Actual Respiratory Rate 16 Actual Respiratory Rate 17 Positive End Expiratory 5 Pressure Positive End Expiratory 5 Pressure Positive End Expiratory 5 Pressure Positive End Expiratory 5 Pressure Positive End Expiratory 5 Pressure Positive End Expiratory 5 Pressure Positive End Expiratory 5 Pressure Positive End Expiratory 5 Pressure Positive End Expiratory 5 Pressure Positive End Expiratory 5 Pressure Positive End Expiratory 5 Pressure Peak Inspiratory Airway 24 Pressure Peak Inspiratory Airway 23 Pressure Peak Inspiratory Airway 23 Pressure Peak Inspiratory Airway 19 Pressure Peak Inspiratory Airway 11 Pressure Peak Inspiratory Airway 11 Pressure Peak Inspiratory Airway 21 Pressure Peak Inspiratory Airway 23 Pressure Peak Inspiratory Airway 24 Pressure Peak Inspiratory Airway 20 Pressure Results - Laboratory Findings CBC and BMP: 05/21/16 04:03 05/21/16 04:03 ABG ABG pH 7.44 pH Units (7.32-7.45) 05/21/16 05:13 ABG pCO2 61 mmHg (35-45) H 05/21/16 05:13 ABG pO2 97 mmHg (85-104) 05/21/16 05:13 ABG O2 Saturation 98 % (95-98) 05/21/16 05:13 Abnormal lab findings: Abnormal lab results RDW 15.2 % (11.5-14.5) H 05/21/16 04:03 Nucleated RBCs/100 WBC 0.1 /100 WBC (0) H 05/16/16 01:29 Toxic Granulation Present (Not Present) A 05/19/16 03:44 Toxic Vacuolation Present (Not Present) A 05/19/16 03:44 ABG pCO2 61 mmHg (35-45) H 05/21/16 05:13 ABG HCO3 41.4 mEQ/L (21-27) H 05/21/16 05:13 ABG Total CO2 43.3 mEq/L (20-26) H 05/21/16 05:13 ABG Base Excess 14.4 mEq/L (-2.0 to 3.0) H 05/21/16 05:13 Chloride 94 mEq/L (98-109) L 05/21/16 04:03 Carbon Dioxide 37 mEq/L (19-29) H 05/21/16 04:03 BUN 48 mg/dL (7-20) H 05/21/16 04:03 BUN/Creatinine Ratio 79 (6-26) H 05/21/16 04:03 Glucose 104 mg/dL (70-99) H 05/21/16 04:03 POC Glucose 97 (58-89) H 05/21/16 03:29 Influenza Type B (PCR) DETECTED (Not Detect) A 05/17/16 05:30 - Clinical Findings Intake & Output: Intake & Output 05/20/16 05/20/16 05/21/16 15:59 23:59 07:59 Intake Total 536 / 536 1128 / 1128 718 / 718 Output Total 1300 / 1300 2350 / 2350 500 / 500 Balance -764 / -764 -1222 / -1222 218 / 218
[2016-05-21] MEDS: Budesonide/Formoterol 160/4.5 MDI IH SCH ×2 (08:40→20:21)
[2016-05-21] MEDS: Chlorhexidine Rinse 15 ML MOUTHWASH MM SCH ×2 (08:45→20:01)
[2016-05-21] MEDS: Pantoprazole 40 MG VIAL IVP SCH (08:45)
[2016-05-21] MEDS: predniSONE 20 MG TABLET PO SCH (08:48)
[2016-05-21] MEDS: cloNIDine HCl 0.1 MG TABLET PO SCH ×4 (08:48→19:59)
[2016-05-21] MEDS: Aspirin Enteric Coated 81 MG Tablet PO SCH (08:49)
[2016-05-21] MEDS: Bisacodyl 10 MG RECTAL SUPPOSITORY RC SCH (08:50)
[2016-05-21] MEDS ORDERED: cloNIDine HCl 0.1 MG TABLET PO SCH (09:00)
[2016-05-21] MEDS: Dexmedetomidine HCl 400 MCG/100 ML MLS IVC SCH (10:30)
[2016-05-21] MEDS: Nicotine 14 MG PATCH.TD24 TD SCH (12:17)
[2016-05-21] MEDS ORDERED: *HR* Metoprolol 5 MG/5 ML VIAL IVP ONE (13:14)
[2016-05-21] MEDS ORDERED: diazePAM 10 MG/2 ML SYRINGE IVP PRN (16:54)
[2016-05-21] MEDS ORDERED: *HR* OxyCODONE/APAP 5/325 TABLET PO PRN (18:50)
[2016-05-21] MEDS: Insulin DETEMIR 100 UNIT/ML X5UNITS SQ SCH (20:00)
[2016-05-21] MEDS: *HR* Morphine 2 MG/ML SYRINGE IVP PRN ×2 (20:00→23:31)
[2016-05-22] MEDS: Levalbuterol Neb 1.25 MG/3 ML IH SCH ×7 (00:15→23:34)
[2016-05-22] MEDS: Ipratropium Neb 0.5 MG NEBULIZER IH SCH ×7 (00:15→23:34)
[2016-05-22] MEDS: *HR* Morphine 2 MG/ML SYRINGE IVP PRN ×5 (01:31→10:40)
[2016-05-22] MEDS ORDERED: *HR* Metoprolol 5 MG/5 ML VIAL IVP ONE ×2 (01:40→08:47)
[2016-05-22 01:46] LABS: Basophils % 0.2 %; Eosinophils % 0.3 %; Hematocrit 47.4 % (35.3-44.9); Hemoglobin 15.3 g/dL (11.5-15.4); Immature Granulocytes % 0.8 % (0-4); Lymphocytes # 2.5 K/mcL (0.6-4.6); Lymphocytes % 18.2 %; Mean Corpuscular HGB Conc 32.3 g/dL (31.6-35.5); Mean Corpuscular Hemoglobin 30.2 pg (28.0-33.3); Mean Corpuscular Volume 93.7 fL (83.0-100.0); Mean Platelet Volume 10.1 fL (9.4-12.4); Monocytes # 1.1 K/mcL (0.0-1.3); Monocytes % 7.7 %; Neutrophils # 10.1 K/mcL (1.6-8.9); Platelet Count 249 K/mcL (140-400); Red Blood Count 5.06 M/mcL (3.82-4.97); Red Cell Distribution Width 15.1 % (11.5-14.5); Segmented Neutrophils % 72.8 %
[2016-05-22] MEDS: amLODIPine 5 MG TABLET PO ONE ×2 (02:00→02:13)
[2016-05-22] MEDS: Insulin LISPRO 300 UNITS/3 ML VIAL SQ SCH ×6 (03:45→23:29)
[2016-05-22] MEDS: Lacri-Lube 3.5 GM TUBE BOTH EYES SCH ×6 (03:46→23:30)
[2016-05-22 04:19] LABS: BUN/Creatinine Ratio 67 (6-26); Blood Urea Nitrogen 37 mg/dL (7-20); Calcium 9.7 mg/dL (8.6-10.8); Carbon Dioxide 28 mEq/L (19-29); Chloride 96 mEq/L (98-109); Glucose 98 mg/dL (70-99); Magnesium 1.6 mg/dL (1.6-2.6); Osmolality,Calculated 299 (280-300); Potassium 4.2 mEq/L (3.5-4.5); Sodium 140 mEq/L (136-145); eGFR For African Americans > 60 (> 60); eGFR For Non-African Americans > 60 (> 60)
[2016-05-22] MEDS: *HR* Heparin 5,000 UNIT/ML VIAL SQ SCH ×3 (05:38→20:49)
[2016-05-22] MEDS: Chlorhexidine Rinse 15 ML MOUTHWASH MM SCH ×2 (07:59→20:13)
[2016-05-22] MEDS: Pantoprazole 40 MG VIAL IVP SCH (08:00)
[2016-05-22] MEDS: Bisacodyl 10 MG RECTAL SUPPOSITORY RC SCH (08:00)
[2016-05-22] MEDS: Budesonide/Formoterol 160/4.5 MDI IH SCH ×2 (08:05→21:02)
[2016-05-22] MEDS: cloNIDine HCl 0.1 MG TABLET PO SCH ×4 (08:07→20:50)
[2016-05-22] MEDS: predniSONE 20 MG TABLET PO SCH (08:09)
--- NOTE | 2016-05-22 08:20 | Pulmonology Progress Note ---
Date of Encounter: 05/22/16 Time of Encounter: 08:20 Assessment and Plan (1) Acute exacerbation of chronic obstructive airways disease Current Visit: No Status: Acute This appears to be improving continue steroids (IV correuntly to decrease pill burden) continue bronchodilators (2) Acute respiratory failure Current Visit: No Status: Acute Liberated from the ventilator overall doing well wean oxygen to keep saturation 89-92% Qualifiers: Respiratory failure complication: hypoxia and hypercapnia Qualified Code(s) : J96.01 - Acute respiratory failure with hypoxia; J96.02 - Acute respiratory failure with hypercapnia (3) Accelerated hypertension Current Visit: No Status: Chronic Hypertension is been difficult to control she is currently on clonidine Coreg hydralazine and norvasc with plan to titrate as able could consider adding spironolactone if still unable to control (4) DM type 2, uncontrolled, with neuropathy Current Visit: No Status: Chronic Glucoses monitored currently on basal bolus dosing with acceptable readings (5) Community acquired pneumonia Current Visit: Yes Status: Acute Clinically doing quite well although sputum was positive for strep pneumonia. Restart on antimicrobial treatment will complete 5-7 day course based upon clinical outcome (6) DVT prophylaxis Current Visit: Yes Status: Acute Continue heparin subcutaneously administered (7) Influenza B Current Visit: Yes Status: Acute Continue Tamiflu (8) JORGE (obstructive sleep apnea) Current Visit: Yes Status: Acute Has a history of obstructive sleep apnea uses positive airway pressure at night will care with machine which was brought in from home Subjective Principal diagnosis: Acute on chronic hypoxic and hypercapnic respiratory failure Interval history: The review of the S evening did well overnight. On 4-6 L nasal cannula oxygen at present. Says she has aches all over her body but otherwise appears to be doing okay. Has had a dry throat with some difficulty swallowing her pills. Objective PUL Vital signs: Last Vital Signs Temp 98.1 F 05/22/16 03:00 Pulse 82 05/22/16 07:36 Resp 16 05/22/16 07:57 BP 177/104 05/22/16 07:36 Pulse Ox 93 05/22/16 07:57 General appearance: no acute distress ENT: oropharynx dry Neck: supple Effort: mildly labored Auscultation: bilateral: diminished breath sounds, wheezes Cardiovascular: regular rate and rhythm Gastrointestinal: normoactive bowel sounds Extremities: no edema Musculoskeletal: no deformities normal mental status, non-focal exam mood appropriate Results - Laboratory Findings CBC and BMP: 05/22/16 01:36 05/22/16 01:36 ABG ABG pH 7.44 pH Units (7.32-7.45) 05/21/16 05:13 ABG pCO2 61 mmHg (35-45) H 05/21/16 05:13 ABG pO2 97 mmHg (85-104) 05/21/16 05:13 ABG O2 Saturation 98 % (95-98) 05/21/16 05:13 Abnormal lab findings: Abnormal lab results WBC 13.9 K/mcL (4.3-11.1) H 05/22/16 01:36 RBC 5.06 M/mcL (3.82-4.97) H 05/22/16 01:36 Hct 47.4 % (35.3-44.9) H 05/22/16 01:36 RDW 15.1 % (11.5-14.5) H 05/22/16 01:36 Neutrophils # 10.1 K/mcL (1.6-8.9) H 05/22/16 01:36 Nucleated RBCs/100 WBC 0.1 /100 WBC (0) H 05/16/16 01:29 Toxic Granulation Present (Not Present) A 05/19/16 03:44 Toxic Vacuolation Present (Not Present) A 05/19/16 03:44 ABG pCO2 61 mmHg (35-45) H 05/21/16 05:13 ABG HCO3 41.4 mEQ/L (21-27) H 05/21/16 05:13 ABG Total CO2 43.3 mEq/L (20-26) H 05/21/16 05:13 ABG Base Excess 14.4 mEq/L (-2.0 to 3.0) H 05/21/16 05:13 Chloride 96 mEq/L (98-109) L 05/22/16 01:36 BUN 37 mg/dL (7-20) H D 05/22/16 01:36 Creatinine 0.55 mg/dL (0.57-1.11) L 05/22/16 01:36 BUN/Creatinine Ratio 67 (6-26) H 05/22/16 01:36 POC Glucose 96 (58-89) H 05/22/16 07:55 Influenza Type B (PCR) DETECTED (Not Detect) A 05/17/16 05:30 - Microbiology Findings Microbiology Findings: Microbiology, Last 48 Hours 05/21/16 15:30 Streptococcus pneumoniae Antigen (M - Final Urine,Catheterized 05/17/16 05:30 Respiratory Virus Culture - Preliminary Nasopharyngeal - Clinical Findings Intake & Output: Intake & Output 05/21/16 05/22/16 05/22/16 23:59 07:59 15:59 Intake Total 715 / 715 0 / 0 Output Total 1000 / 1000 850 / 850 Balance -285 / -285 -850 / -850 Consult Discharge Plan - Plan Referrals: NO,PCP [Primary Care Provider] -
[2016-05-22] MEDS ORDERED: hydrALAZINE 25 MG TABLET PO PRN (08:23)
[2016-05-22] MEDS: Ondansetron 4 MG/2 ML VIAL IVP PRN ×3 (08:47→20:50)
[2016-05-22] MEDS: Aspirin Enteric Coated 81 MG Tablet PO SCH (09:11)
[2016-05-22] MEDS ORDERED: Bisacodyl 10 MG RECTAL SUPPOSITORY RC PRN (10:14)
[2016-05-22] MEDS ORDERED: *HR* Promethazine 25 MG/ML VIAL IVP ONE (11:08)
[2016-05-22] MEDS ORDERED: Acetaminophen 325 MG TABLET PO PRN (11:09)
[2016-05-22] MEDS: Nicotine 14 MG PATCH.TD24 TD SCH (11:19)
[2016-05-22] MEDS: *HR* HYDROmorphone 2 MG/ML SYRINGE IVP PRN ×4 (13:26→22:52)
[2016-05-22] MEDS: MethylPREDNISolone 40 MG/ML VIAL IVP SCH (18:16)
[2016-05-22] MEDS ORDERED: Insulin DETEMIR 100 UNIT/ML X5UNITS SQ SCH (21:00)
[2016-05-23] MEDS: *HR* HYDROmorphone 2 MG/ML SYRINGE IVP PRN ×5 (02:03→20:25)
[2016-05-23] MEDS: Ondansetron 4 MG/2 ML VIAL IVP PRN ×3 (02:42→23:02)
[2016-05-23] MEDS: Levalbuterol Neb 1.25 MG/3 ML IH SCH ×5 (05:00→19:36)
[2016-05-23] MEDS: Ipratropium Neb 0.5 MG NEBULIZER IH SCH ×5 (05:00→19:36)
[2016-05-23] MEDS: Insulin LISPRO 300 UNITS/3 ML VIAL SQ SCH ×4 (05:03→16:24)
[2016-05-23] MEDS: Lacri-Lube 3.5 GM TUBE BOTH EYES SCH ×2 (05:04→08:07)
[2016-05-23] MEDS: *HR* Heparin 5,000 UNIT/ML VIAL SQ SCH ×2 (05:05→13:37)
[2016-05-23] MEDS: MethylPREDNISolone 40 MG/ML VIAL IVP SCH ×2 (05:05→17:02)
[2016-05-23 07:31] LABS: Basophils % 0.2 %; Eosinophils % 0.4 %; Hematocrit 44.6 % (35.3-44.9); Hemoglobin 14.1 g/dL (11.5-15.4); Immature Granulocytes % 0.9 % (0-4); Lymphocytes # 1.1 K/mcL (0.6-4.6); Lymphocytes % 13.1 %; Mean Corpuscular HGB Conc 31.6 g/dL (31.6-35.5); Mean Corpuscular Hemoglobin 30.3 pg (28.0-33.3); Mean Corpuscular Volume 95.7 fL (83.0-100.0); Mean Platelet Volume 10.7 fL (9.4-12.4); Monocytes # 0.3 K/mcL (0.0-1.3); Monocytes % 3.6 %; Platelet Count 246 K/mcL (140-400); Red Blood Count 4.66 M/mcL (3.82-4.97); Red Cell Distribution Width 14.7 % (11.5-14.5); Segmented Neutrophils % 81.8 %
[2016-05-23 07:40] LABS: Ionized Calcium 1.15 mmol/L (1.15-1.35)
[2016-05-23 07:44] LABS: BUN/Creatinine Ratio 67 (6-26); Blood Urea Nitrogen 47 mg/dL (7-20); Calcium 9.3 mg/dL (8.6-10.8); Carbon Dioxide 34 mEq/L (19-29); Chloride 96 mEq/L (98-109); Glucose 103 mg/dL (70-99); Magnesium 1.8 mg/dL (1.6-2.6); Osmolality,Calculated 301 (280-300); Phosphorous 4.5 mg/dL (2.3-4.7); Potassium 5.1 mEq/L (3.5-4.5); Sodium 139 mEq/L (136-145); eGFR For African Americans > 60 (> 60); eGFR For Non-African Americans > 60 (> 60)
--- NOTE | 2016-05-23 07:53 | Pulmonology Progress Note ---
<Nora Wiley - Last Filed: 05/23/16 08:35> Date of Encounter: 05/23/16 Time of Encounter: 07:48 Assessment and Plan (1) Acute exacerbation of chronic obstructive pulmonary disease Current Visit: Yes Status: Acute Continuing to improve. Pt extubated and in no distress. Lung sounds clear. Decreasing steroid use as tolerated. Will continue bronchodilators (2) Acute respiratory failure Current Visit: No Status: Acute Extubated successfully with no distress. Wean oxygen to maintain )2 saturation between 89-92% Qualifiers: Respiratory failure complication: hypoxia and hypercapnia Qualified Code(s) : J96.01 - Acute respiratory failure with hypoxia; J96.02 - Acute respiratory failure with hypercapnia (3) Community acquired pneumonia Current Visit: Yes Status: Acute Clinically doing quite well although sputum was positive for strep pneumonia. Restarted on antimicrobial treatment will complete 5-7 day course based upon clinical outcome (4) DVT prophylaxis Current Visit: Yes Status: Acute Subq Heparin (5) Influenza B Current Visit: Yes Status: Acute Clinically improved. Continue Tanvi flu (6) JORGE (obstructive sleep apnea) Current Visit: Yes Status: Acute History of this. Uses bipap at night at home. Will continue this here. Pt has brought her own bipap as it is more comfortable for her. (7) Accelerated hypertension Current Visit: No Status: Chronic Pt expresses that she has difficulty controlling this at home. It has also been difficult to control while she is here. Will continue regimen she is on now as it seems to be working. Has been better controlled since she has been able to take PO meds. (8) DM type 2, uncontrolled, with neuropathy Current Visit: No Status: Chronic On basal insulin as well as sliding scale. Subjective Principal diagnosis: Acute on chronic hypoxic and hypercapnic respiratory failure Interval history: Patient resting comfortably in bed with no complaints this morning. She states she slept on and off last night. She appears in no distress. Lung sounds are clear abdomen is soft heart tones are normal. Patient is progressing well and we will transfer her to the floor today. Objective PUL Vital signs: Last Vital Signs Temp 97.1 F L 05/23/16 03:49 Pulse 71 05/23/16 06:00 Resp 12 05/23/16 06:00 BP 107/66 05/23/16 06:00 Pulse Ox 91 05/23/16 06:00 General appearance: no acute distress, alert Eyes: nonicteric ENT: oropharynx moist Neck: supple, no lymphadenopathy Effort: normal Cardiovascular: regular rate and rhythm Gastrointestinal: normoactive bowel sounds, soft, non-tender, non-distended Integumentary: normal Extremities: no cyanosis Musculoskeletal: no deformities Gait: normal posture normal mental status, non-focal exam mood appropriate, affect normal Results - Laboratory Findings CBC and BMP: 05/23/16 07:24 05/23/16 07:24 ABG ABG pH 7.44 pH Units (7.32-7.45) 05/21/16 05:13 ABG pCO2 61 mmHg (35-45) H 05/21/16 05:13 ABG pO2 97 mmHg (85-104) 05/21/16 05:13 ABG O2 Saturation 98 % (95-98) 05/21/16 05:13 Abnormal lab findings: Abnormal lab results RDW 14.7 % (11.5-14.5) H 05/23/16 07:24 Nucleated RBCs/100 WBC 0.1 /100 WBC (0) H 05/16/16 01:29 Toxic Granulation Present (Not Present) A 05/19/16 03:44 Toxic Vacuolation Present (Not Present) A 05/19/16 03:44 ABG pCO2 61 mmHg (35-45) H 05/21/16 05:13 ABG HCO3 41.4 mEQ/L (21-27) H 05/21/16 05:13 ABG Total CO2 43.3 mEq/L (20-26) H 05/21/16 05:13 ABG Base Excess 14.4 mEq/L (-2.0 to 3.0) H 05/21/16 05:13 Potassium 5.1 mEq/L (3.5-4.5) H 05/23/16 07:24 Chloride 96 mEq/L (98-109) L 05/23/16 07:24 Carbon Dioxide 34 mEq/L (19-29) H 05/23/16 07:24 BUN 47 mg/dL (7-20) H D 05/23/16 07:24 BUN/Creatinine Ratio 67 (6-26) H 05/23/16 07:24 Glucose 103 mg/dL (70-99) H 05/23/16 07:24 POC Glucose 119 (58-89) H 05/23/16 07:42 Calculated Osmolality 301 (280-300) H 05/23/16 07:24 Influenza Type B (PCR) DETECTED (Not Detect) A 05/17/16 05:30 - Microbiology Findings Microbiology Findings: Microbiology, Last 48 Hours 05/21/16 15:30 Streptococcus pneumoniae Antigen (M - Final Urine,Catheterized 05/17/16 05:30 Respiratory Virus Culture - Preliminary Nasopharyngeal - Clinical Findings Intake & Output: Intake & Output 05/22/16 05/22/16 05/23/16 15:59 23:59 07:59 Intake Total 340 / 340 450 / 450 0 / 0 Output Total 625 / 625 375 / 375 125 / 125 Balance -285 / -285 75 / 75 -125 / -125 Weight 68.946 kg Consult Discharge Plan - Plan Referrals: NO,PCP [Primary Care Provider] - <Sedrick Hargrove - Last Filed: 05/23/16 14:26> Date of Encounter: 05/23/16 Assessment and Plan (1) Acute exacerbation of chronic obstructive airways disease Current Visit: No Status: Acute (2) Acute respiratory failure Current Visit: No Status: Acute Qualifiers: Respiratory failure complication: hypoxia and hypercapnia Qualified Code(s) : J96.01 - Acute respiratory failure with hypoxia; J96.02 - Acute respiratory failure with hypercapnia (3) Accelerated hypertension Current Visit: No Status: Chronic (4) DM type 2, uncontrolled, with neuropathy Current Visit: No Status: Chronic (5) Community acquired pneumonia Current Visit: Yes Status: Acute (6) DVT prophylaxis Current Visit: Yes Status: Acute (7) Influenza B Current Visit: Yes Status: Acute (8) JORGE (obstructive sleep apnea) Current Visit: Yes Status: Acute Objective PUL Vital signs: Last Vital Signs Temp 97.6 F 05/23/16 11:12 Pulse 73 05/23/16 11:12 Resp 18 05/23/16 11:15 BP 126/79 05/23/16 11:15 Pulse Ox 93 05/23/16 11:15 Results - Laboratory Findings CBC and BMP: 05/23/16 07:24 05/23/16 07:24 ABG ABG pH 7.44 pH Units (7.32-7.45) 05/21/16 05:13 ABG pCO2 61 mmHg (35-45) H 05/21/16 05:13 ABG pO2 97 mmHg (85-104) 05/21/16 05:13 ABG O2 Saturation 98 % (95-98) 05/21/16 05:13 Abnormal lab findings: Abnormal lab results RDW 14.7 % (11.5-14.5) H 05/23/16 07:24 Nucleated RBCs/100 WBC 0.1 /100 WBC (0) H 05/16/16 01:29 Toxic Granulation Present (Not Present) A 05/19/16 03:44 Toxic Vacuolation Present (Not Present) A 05/19/16 03:44 ABG pCO2 61 mmHg (35-45) H 05/21/16 05:13 ABG HCO3 41.4 mEQ/L (21-27) H 05/21/16 05:13 ABG Total CO2 43.3 mEq/L (20-26) H 05/21/16 05:13 ABG Base Excess 14.4 mEq/L (-2.0 to 3.0) H 05/21/16 05:13 Potassium 5.1 mEq/L (3.5-4.5) H 05/23/16 07:24 Chloride 96 mEq/L (98-109) L 05/23/16 07:24 Carbon Dioxide 34 mEq/L (19-29) H 05/23/16 07:24 BUN 47 mg/dL (7-20) H D 05/23/16 07:24 BUN/Creatinine Ratio 67 (6-26) H 05/23/16 07:24 Glucose 103 mg/dL (70-99) H 05/23/16 07:24 POC Glucose 211 (58-89) H 05/23/16 12:16 Calculated Osmolality 301 (280-300) H 05/23/16 07:24 Influenza Type B (PCR) DETECTED (Not Detect) A 05/17/16 05:30 - Microbiology Findings Microbiology Findings: Microbiology, Last 48 Hours 05/21/16 15:30 Streptococcus pneumoniae Antigen (M - Final Urine,Catheterized - Clinical Findings Intake & Output: Intake & Output 05/22/16 05/23/16 05/23/16 23:59 07:59 15:59 Intake Total 450 / 450 0 / 0 100 / 100 Output Total 375 / 375 250 / 250 300 / 300 Balance 75 / 75 -250 / -250 -200 / -200 Weight 68.946 kg - Attending Attestation I examined this patient and my medical decision-making was reviewed with the SUPPORT REPRESENTATIVE/PA/Advanced Practice Nurse/Resident Physician. I agree with the documented findings, disposition and treatment plan as described except to the extent set forth below. Impression: 1. Acute on chronic hypoxic hypercapnic respiratory failure 2. COPD with acute exacerbation 3. Influenza B 4. Community Acquired PNA 5. Accelerated HTN 6. JORGE Recs: 1. Stable wean Fio2 to keep sat >88-92% Incentive stacey and OOBTC when able. 2. Cont BDs switch to enteral steroids to complete 2 week taper 3. Given Ostelamivir 4. Strep PNA + treat for 5 days with Ceftriaxone 5. Controlled on current BP regimen 6. Cont PAP therapy at night and with naps. DVT prophylaxis given Stable for transfer to Telemetry.
[2016-05-23] MEDS: Pantoprazole 40 MG VIAL IVP SCH (07:54)
[2016-05-23] MEDS: Aspirin Enteric Coated 81 MG Tablet PO SCH (07:55)
[2016-05-23] MEDS: Chlorhexidine Rinse 15 ML MOUTHWASH MM SCH (07:55)
--- NOTE | 2016-05-23 07:56 | Event Note ---
Date of Encounter: 05/23/16 Time of Encounter: 07:[address] Sign out [address] Mullins
[2016-05-23] MEDS: Budesonide/Formoterol 160/4.5 MDI IH SCH ×3 (08:16→19:36)
[2016-05-23] MEDS ORDERED: Fluconazole 100 MG/50 ML 100 MG/50 ML BAG IVPB SCH (09:45)
[2016-05-23] MEDS ORDERED: Bisacodyl 10 MG RECTAL SUPPOSITORY RC PRN (09:55)
[2016-05-23] MEDS ORDERED: Dextrose Gel 15 GM PO PRN ×4 (09:55→17:28)
[2016-05-23] MEDS ORDERED: Naloxone 0.4 MG/ML INJ IVP PRN (09:55)
[2016-05-23] MEDS ORDERED: D5% in Water 1,000 ML IVC PRN ×2 (09:55→17:28)
[2016-05-23] MEDS ORDERED: Acetaminophen 325 MG TABLET PO PRN (09:55)
[2016-05-23] MEDS ORDERED: *HR* Dextrose 50 % in Water (Syg) 50 ML SYRINGE IVP PRN ×2 (09:55→17:28)
[2016-05-23] MEDS: cloNIDine HCl 0.1 MG TABLET PO SCH ×4 (10:03→22:06)
--- NOTE | 2016-05-23 10:53 | Electrocardiograph Report ---
[place] [id number] Test Date: 2016-05-22 Pat Name: Nora Ren Department: 109 Room: 2A Gender: F Merchant Tailor: EN : 1960 Requested By: Zainab Nelson Order Number: [id number] Reading MD: Low Cordova MD Measurements Intervals [place] Rate: 101 P: 69 CO: 143 QRS: 63 QRSD: 90 T: 58 QT: 314 QTc: 372 Interpretive Statements SINUS TACHYCARDIA Electronically Signed On 05-23-2016 10:51:31 EDT by Low Cordova MD
[2016-05-23] MEDS ORDERED: Levalbuterol Neb 0.63 MG/3 ML ONE ×2 (11:01→11:03)
[2016-05-23] MEDS ORDERED: Ipratropium Neb 0.5 MG NEBULIZER ONE (11:03)
[2016-05-23] MEDS: Nicotine 14 MG PATCH.TD24 TD SCH (11:21)
[2016-05-23] MEDS: *HR* OxyCODONE/APAP 5/325 TABLET PO PRN (11:22)
[2016-05-23] MEDS: Fluconazole 100 MG/50 ML 100 MG/50 ML BAG IVPB SCH (12:10)
[2016-05-23] MEDS ORDERED: Insulin LISPRO 300 UNITS/3 ML VIAL SQ SCH (21:00)
[2016-05-23] MEDS: Insulin DETEMIR 100 UNIT/ML X5UNITS SQ SCH (22:05)
[2016-05-24] MEDS: Levalbuterol Neb 1.25 MG/3 ML IH SCH ×8 (00:13→23:52)
[2016-05-24] MEDS: Ipratropium Neb 0.5 MG NEBULIZER IH SCH ×8 (00:13→23:52)
[2016-05-24] MEDS: *HR* HYDROmorphone 2 MG/ML SYRINGE IVP PRN ×5 (01:01→20:40)
[2016-05-24] MEDS: *HR* Heparin 5,000 UNIT/ML VIAL SQ SCH ×4 (01:26→21:12)
[2016-05-24] MEDS: MethylPREDNISolone 40 MG/ML VIAL IVP SCH ×2 (05:36→16:57)
[2016-05-24] MEDS: Ondansetron 4 MG/2 ML VIAL IVP PRN (07:42)
[2016-05-24] MEDS: cloNIDine HCl 0.1 MG TABLET PO SCH ×4 (07:47→20:40)
[2016-05-24] MEDS: Insulin LISPRO 300 UNITS/3 ML VIAL SQ SCH ×3 (07:47→16:44)
[2016-05-24] MEDS: Pantoprazole 40 MG VIAL IVP SCH (07:48)
[2016-05-24] MEDS: Aspirin Enteric Coated 81 MG Tablet PO SCH (07:48)
[2016-05-24] MEDS: Fluconazole 100 MG/50 ML 100 MG/50 ML BAG IVPB SCH (08:40)
[2016-05-24] MEDS: Budesonide/Formoterol 160/4.5 MDI IH SCH ×2 (08:51→20:27)
[2016-05-24] MEDS: *HR* OxyCODONE/APAP 5/325 TABLET PO PRN (09:34)
[2016-05-24] MEDS: Nicotine 14 MG PATCH.TD24 TD SCH (11:22)
--- NOTE | 2016-05-24 13:59 | Internal Med Progress Note ---
<Jasper Torrez - Last Filed: 05/24/16 14:25> Date of Encounter: 05/24/16 Time of Encounter: 13:55 - Assessment and plan (1) Acute exacerbation of chronic obstructive airways disease Current Visit: No Status: Acute Assessment and plan: Improving. Chronic history of COPD with current everyday smoking. She is on 2 L nasal oxygen at home. Upon admission she was hyper, coronary increased oxygen demand and subsequently intubated. She was extubated 2 days ago and has been on 6-7 L nasal cannula oxygen with oxygen saturations greater than 90%. - Respiratory status improving - Clinical exam demonstrates diffuse diminished breath sounds. - I suspect the patient can be weaned back on her oxygen as she is satting greater than 95% on 6 L oxygen. Plan: -Continue Solu-Medrol 40 every 12 hours - Continue scheduled breathing treatments - Wean oxygen to home 2 L baseline. (2) Hypertension Current Visit: Yes Status: Chronic Assessment and plan: Patient is a known history of hypertension, her home medications include losartan/hydrochlorothiazide, clonidine 0.3 mg by mouth 4 times a day and Norvasc 10 mg by mouth. - Current blood pressure stable - Current blood pressure coverage includes Coreg 12.5 mg by mouth twice a day and clonidine 0.4 mg by mouth 4 times a day, Cozaar 100 mg by mouth daily - Continue to monitor blood pressure. Adjust blood pressure medications as necessary. Qualifiers: Hypertension type: essential hypertension Qualified Code(s): I10 - Essential (primary) hypertension (3) Tobacco abuse Current Visit: No Status: Chronic Assessment and plan: Patient is a current every day smoker with a history of COPD. She said that she quit upon admission. It will be important for close follow-up with her primary care for continued smoking cessation. (4) Community acquired pneumonia Current Visit: Yes Status: Acute Assessment and plan: Patient continues to have green sputum production and increased oxygen requirements. Sputum culture on 05/16/2016 was positive for strep pneumo. Current antibiotic coverage includes ceftriaxone. Susceptibilities reviewed. Plan: -Plan to switch over to by mouth Levaquin when patient is able to swallow effectively. (5) Influenza B Current Visit: Yes Status: Acute Assessment and plan: Influenza B was positive on PCR. But negative on nasal swab. Likely contributing to COPD exacerbation and acute on chronic respiratory failure. Patient has been afebrile for greater than 48 hours (6) DM (diabetes mellitus), type 2 Current Visit: Yes Status: Acute Assessment and plan: Patient was hyperglycemic upon admission. Currently glucoses controlled on current inpatient regimen. Plan: Continue Levemir 10 units subcutaneous at bedtime Continue inpatient sliding scale low-dose. Qualifiers: Diabetes mellitus complication status: with unspecified complications Qualified Code(s): E11.8 - Type 2 diabetes mellitus with unspecified complications; Z79.4 - lobsterman (current) 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 (7) HLD (hyperlipidemia) Current Visit: No Status: Chronic Assessment and plan: History of hyperlipidemia. Qualifiers: Hyperlipidemia type: other hyperlipidemia Qualified Code(s): E78.4 - Other hyperlipidemia (8) Difficulty swallowing Current Visit: Yes Status: Acute Assessment and plan: Patient complains of difficulty swallowing even pills or honey thickened liquids. Patient says this is new since extubation. Denies difficulty breathing, oral swelling, or difficulty talking. - Physical exam does not demonstrate any obstruction, voice is not sound obstructed and breathing correlates with diffuse diminished breath sounds. No stridor appreciated. - Unknown etiology. - Speech evaluation ordered. Qualifiers: Qualified Code(s): R13.10 - Dysphagia, unspecified (9) DVT prophylaxis Current Visit: No Status: Acute Assessment and plan: Subcutaneous heparin 5000 units every 8 hours. - Subjective Interval history: Ms. Ren has been seen and evaluated at patient bedside. She is awake alert interactive in no acute distress. She said that her breathing is improved but she continues to have greenish yellow sputum production. She feels a lot better compared to admission and breathing is improved since yesterday. She denies history of intubation. She says she is quitting smoking today. Her complaint is that she is having difficulty swallowing even pills and that things have had to be crushed up. She denies any history of difficulty swallowing or aspiration. - Constitutional Vitals: Temp Pulse Resp BP Pulse Ox 98.4 F 67 18 102/66 97 05/24/16 11:38 05/24/16 11:38 05/24/16 11:47 05/24/16 11:38 05/24/16 11:47 General appearance: Present: cooperative, A&O X 3, pleasant, no acute distress - Head Head exam: Present: atraumatic, normocephalic - Eye Eye exam: Present: PERRL, conjuntiva pink, sclera anicteric Pupils: Present: PERRL - ENT ENT exam: Present: mucous membranes moist Additional comments: Edentulous, posterior oropharynx without obstruction or swelling. Uvula midline. - Neck Neck exam general surgery: Present: supple, trachea midline. Absent: lymphadenopathy - Respiratory Additional comments: Diffusely diminished breath sounds with poor vesicular and bronchial breath sounds. - Cardiovascular Cardiovascular exam: Present: RRR, +S1, +S2. Absent: diastolic murmur, gallop, rubs, systolic murmur - GI/Abdominal GI/Abdominal exam: Present: normal bowel sounds, soft, no peritoneal signs. Absent: distended, tenderness - Extremities Exam Extremities exam: Present: warm, radial pulses palpable and symetrical. Absent : calf tenderness, cyanotic, pedal edema - Neurological Exam Neurological exam: Present: alert, oriented X3, no focal deficits. Absent: pronater drift, facial droop, speech deficit - Psychiatric Psychiatric exam: Present: normal affect, normal mood Internal Medicine: Result - Labs CBC & Chem 7: 05/23/16 07:24 05/23/16 07:24 - ABG Interpretation ABG results: ABG ABG pH 7.44 pH Units (7.32-7.45) 05/21/16 05:13 ABG pCO2 61 mmHg (35-45) H 05/21/16 05:13 ABG pO2 97 mmHg (85-104) 05/21/16 05:13 ABG O2 Saturation 98 % (95-98) 05/21/16 05:13 Consult Discharge Plan - Plan Referrals: Domitila Lau MD [Non-Partnered Physician] - 06/01/16 11:15 am (Please follow up as schedule..) <Mervin Santos H - Last Filed: 05/24/16 15:28> Date of Encounter: 05/24/16 - Constitutional Vitals: Temp Pulse Resp BP Pulse Ox 98.4 F 67 18 102/66 97 05/24/16 11:38 05/24/16 11:38 05/24/16 11:47 05/24/16 11:38 05/24/16 11:47 Internal Medicine: Result - Labs CBC & Chem 7: 05/23/16 07:24 05/23/16 07:24 - ABG Interpretation ABG results: ABG ABG pH 7.44 pH Units (7.32-7.45) 05/21/16 05:13 ABG pCO2 61 mmHg (35-45) H 05/21/16 05:13 ABG pO2 97 mmHg (85-104) 05/21/16 05:13 ABG O2 Saturation 98 % (95-98) 05/21/16 05:13 - Attending Attestation acute on chronic hypoxic hypercapneic resp failure 2ry to acute copd exacerbation due to CAP in combination with Influenza B continue rocephin day 4 completed 5 days of tamiflu continue solumedrol dysphagia diet per speech pathology recommendation s, consider FEES if not improving thrush (oral) stop IV fluconazole, start nystatin oral swish and spit I examined this patient and my medical decision-making was reviewed with the REMOTE CONTROL ASSEMBLER/PA/Advanced Practice Nurse/Resident Physician. I agree with the documented findings, disposition and treatment plan as described except to the extent set forth below.
[2016-05-24] MEDS ORDERED: Insulin LISPRO 300 UNITS/3 ML VIAL SQ SCH (14:54)
[2016-05-24] MEDS: Nystatin SUSP 5 ML UD.LIQ PO SCH ×2 (16:56→20:40)
[2016-05-24] MEDS: Insulin DETEMIR 100 UNIT/ML X5UNITS SQ SCH (20:40)
[2016-05-25] MEDS: *HR* HYDROmorphone 2 MG/ML SYRINGE IVP PRN ×3 (00:56→12:45)
[2016-05-25] MEDS: *HR* OxyCODONE/APAP 5/325 TABLET PO PRN ×2 (03:23→10:33)
[2016-05-25] MEDS: Levalbuterol Neb 1.25 MG/3 ML IH SCH ×3 (03:45→11:18)
[2016-05-25] MEDS: Ipratropium Neb 0.5 MG NEBULIZER IH SCH ×3 (03:45→11:18)
[2016-05-25] MEDS: *HR* Heparin 5,000 UNIT/ML VIAL SQ SCH ×3 (06:31→21:49)
[2016-05-25] MEDS: MethylPREDNISolone 40 MG/ML VIAL IVP SCH (06:31)
[2016-05-25 07:06] LABS: Basophils % 0.1 %; Eosinophils % 0.1 %; Hematocrit 43.2 % (35.3-44.9); Hemoglobin 13.9 g/dL (11.5-15.4); Immature Granulocytes % 0.8 % (0-4); Lymphocytes # 1.4 K/mcL (0.6-4.6); Lymphocytes % 14.6 %; Mean Corpuscular HGB Conc 32.2 g/dL (31.6-35.5); Mean Corpuscular Hemoglobin 30.7 pg (28.0-33.3); Mean Corpuscular Volume 95.4 fL (83.0-100.0); Mean Platelet Volume 10.6 fL (9.4-12.4); Monocytes # 0.5 K/mcL (0.0-1.3); Monocytes % 4.7 %; Neutrophils # 7.9 K/mcL (1.6-8.9); Platelet Count 280 K/mcL (140-400); Red Blood Count 4.53 M/mcL (3.82-4.97); Segmented Neutrophils % 79.7 %
[2016-05-25 07:24] LABS: Alanine Aminotransferase 21 Units/L (0-55); Albumin 2.9 g/dL (3.5-5.0); Albumin/Globulin Ratio 0.8 (1.1-2.2); Alkaline Phosphatase 74 Units/L (38-126); BUN/Creatinine Ratio 53 (6-26); Bilirubin,Total 0.4 mg/dL (0.2-1.2); Blood Urea Nitrogen 39 mg/dL (7-20); Calcium 9.9 mg/dL (8.6-10.8); Carbon Dioxide 32 mEq/L (19-29); Chloride 92 mEq/L (98-109); Globulin 3.6 g/dL (2.4-3.5); Glucose 267 mg/dL (70-99); Osmolality,Calculated 297 (280-300); Potassium 5.6 mEq/L (3.5-4.5); Sodium 134 mEq/L (136-145); Total Protein 6.5 g/dL (6.0-8.3); eGFR For African Americans > 60 (> 60); eGFR For Non-African Americans > 60 (> 60)
[2016-05-25 07:30] LABS: Aspartate Amino Transferase 20 Units/L (5-34)
[2016-05-25] MEDS: Budesonide/Formoterol 160/4.5 MDI IH SCH ×2 (08:04→19:50)
[2016-05-25] MEDS: Nystatin SUSP 5 ML UD.LIQ PO SCH ×4 (08:38→21:49)
[2016-05-25] MEDS: Pantoprazole 40 MG VIAL IVP SCH (08:39)
[2016-05-25] MEDS: Aspirin Enteric Coated 81 MG Tablet PO SCH (08:40)
[2016-05-25] MEDS: cloNIDine HCl 0.1 MG TABLET PO SCH ×4 (08:40→21:49)
[2016-05-25] MEDS: Insulin LISPRO 300 UNITS/3 ML VIAL SQ SCH ×4 (08:42→21:50)
[2016-05-25] MEDS: Nicotine 14 MG PATCH.TD24 TD SCH (10:36)
[2016-05-25] MEDS ORDERED: Albuterol 2.5 MG/3 ML NEBULIZER IH PRN (14:35)
[2016-05-25] MEDS ORDERED: Ipratropium/Albuterol Neb 3 ML IH ONE (14:36)
[2016-05-25] MEDS: Ipratropium/Albuterol Neb 3 ML IH SCH ×2 (15:03→19:50)
[2016-05-25] MEDS ORDERED: Acetaminophen 325 MG TABLET PO PRN (15:12)
[2016-05-25] MEDS ORDERED: *HR* OxyCODONE/APAP 5/325 TABLET PO PRN (15:13)
[2016-05-25] MEDS: *HR* OxyCODONE/APAP 10/325 TABLET PO PRN ×2 (16:22→21:49)
[2016-05-25] MEDS: Insulin DETEMIR 100 UNIT/ML X5UNITS SQ SCH (21:48)
[2016-05-26] MEDS: Ipratropium/Albuterol Neb 3 ML IH SCH ×7 (00:03→23:15)
[2016-05-26 04:18] LABS: Hemoglobin A1C 7.8 %
[2016-05-26] MEDS: *HR* Heparin 5,000 UNIT/ML VIAL SQ SCH ×3 (05:09→21:29)
[2016-05-26] MEDS: Budesonide/Formoterol 160/4.5 MDI IH SCH ×2 (08:06→20:40)
[2016-05-26] MEDS ORDERED: MethylPREDNISolone 40 MG/ML VIAL IVP SCH (09:00)
[2016-05-26] MEDS: Insulin LISPRO 300 UNITS/3 ML VIAL SQ SCH ×4 (09:17→21:30)
[2016-05-26] MEDS: Nystatin SUSP 5 ML UD.LIQ PO SCH ×4 (09:18→21:28)
[2016-05-26] MEDS: cloNIDine HCl 0.1 MG TABLET PO SCH ×4 (09:19→21:28)
[2016-05-26] MEDS: Aspirin Enteric Coated 81 MG Tablet PO SCH (09:19)
[2016-05-26] MEDS: Nicotine 14 MG PATCH.TD24 TD SCH (13:22)
--- NOTE | 2016-05-26 16:55 | Internal Med Progress Note ---
Date of Encounter: 05/25/16 Time of Encounter: 13:30 - Assessment and plan (1) Pneumonia Current Visit: Yes Status: Acute Assessment and plan: Improving clinically but continues to require high flow oxygen. Blood cultures remained negative. Sputum culture grows streptococcus pneumoniae. Viral serology positive for influenza B and respiratory viral culture is positive for influenza A. Patient completed a regimen of Tamiflu. Continue IV Rocephin. Continue supportive care. Qualifiers: Pneumonia type: due to Pneumococcus Laterality: unspecified laterality Lung location: unspecified part of lung Qualified Code(s): J13 - Pneumonia due to Streptococcus pneumoniae (2) Acute exacerbation of chronic obstructive airways disease Current Visit: Yes Status: Acute Assessment and plan: Improving slowly. Exacerbated by acute viral bronchitis along with possible underlying pneumonia. Patient has been intubated and successfully extubated during this hospitalization. Continue to taper down IV steroids as tolerated and continue IV antibiotics as above along with bronchodilators and supplemental oxygen. (3) Influenza Current Visit: Yes Status: Resolved Assessment and plan: Positive for influenza A and B, as above. Completed a course of Tamiflu. Continue supportive care. (4) DM (diabetes mellitus), type 2 Current Visit: Yes Status: Chronic Assessment and plan: Continue Accu-Chek blood glucose monitoring. Blood sugars noted to be elevated , likely steroid induced hyperglycemia. We will increase basal bolus insulin regimen. Diabetic diet. Qualifiers: Diabetes mellitus complication status: with unspecified complications Diabetes mellitus usp insulin use: with terminal operations supervisor use Qualified Code(s) : E11.8 - Type 2 diabetes mellitus with unspecified complications; Z79.4 - manager intermediate (current) 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 (5) HTN (hypertension) Current Visit: Yes Status: Chronic Qualifiers: Hypertension type: essential hypertension Qualified Code(s): I10 - Essential (primary) hypertension (6) JORGE (obstructive sleep apnea) Current Visit: Yes Status: Chronic Assessment and plan: Continue nocturnal CPAP. - Subjective Interval history: Noted to be having panic attack along with dyspnea and request for albuterol breathing treatment. Continues to have intermittent shortness of breath and cough. No chest pain, palpitations, vomiting or diarrhea. Improved appetite. - Constitutional Vitals: Temp Pulse Resp BP Pulse Ox 97.6 F 84 18 140/85 91 05/26/16 12:26 05/26/16 12:26 05/26/16 15:55 05/26/16 12:26 05/26/16 15:55 General appearance: Present: cooperative, mild distress, A&O X 3, answers questions appropriately - Respiratory Respiratory exam: Present: decreased breath sounds (Bilateral decreased air entry), rhonchi. Absent: accessory muscle use, rales, wheezes - Cardiovascular Cardiovascular exam: Present: RRR, +S1, +S2, tachycardia. Absent: diastolic murmur, gallop, rubs, systolic murmur - GI/Abdominal GI/Abdominal exam: Present: normal bowel sounds, soft, no peritoneal signs. Absent: distended, tenderness - Extremities Exam Extremities exam: Present: full ROM, warm, radial pulses palpable and symetrical. Absent: calf tenderness, cyanotic, pedal edema - Neurological Exam Neurological exam: Present: CN II-XII intact, oriented X3, no focal deficits. Absent: pronater drift, facial droop, speech deficit Internal Medicine: Result - Labs CBC & Chem 7: 05/25/16 06:49 05/25/16 06:49 - ABG Interpretation ABG results: ABG ABG pH 7.44 pH Units (7.32-7.45) 05/21/16 05:13 ABG pCO2 61 mmHg (35-45) H 05/21/16 05:13 ABG pO2 97 mmHg (85-104) 05/21/16 05:13 ABG O2 Saturation 98 % (95-98) 05/21/16 05:13 Consult Discharge Plan - Plan Referrals: Domitila Lau MD [Non-Partnered Physician] - 06/01/16 11:15 am (Please follow up as schedule..)
[2016-05-26] MEDS: *HR* OxyCODONE/APAP 10/325 TABLET PO PRN (21:27)
[2016-05-26] MEDS: Insulin DETEMIR 100 UNIT/ML X5UNITS SQ SCH (21:29)
[2016-05-27] MEDS: Sennosides/Docusate Sodium TABLET PO SCH ×2 (00:21→09:08)
[2016-05-27] MEDS: Ipratropium/Albuterol Neb 3 ML IH SCH ×3 (02:58→10:57)
[2016-05-27] MEDS: *HR* OxyCODONE/APAP 10/325 TABLET PO PRN (04:15)
[2016-05-27] MEDS: *HR* Heparin 5,000 UNIT/ML VIAL SQ SCH (04:15)
[2016-05-27] MEDS: Budesonide/Formoterol 160/4.5 MDI IH SCH (07:42)
[2016-05-27] MEDS: Insulin LISPRO 300 UNITS/3 ML VIAL SQ SCH ×2 (08:40→12:15)
[2016-05-27] MEDS ORDERED: predniSONE 20 MG TABLET PO SCH (09:00)
[2016-05-27] MEDS: Nystatin SUSP 5 ML UD.LIQ PO SCH (09:07)
[2016-05-27] MEDS: Aspirin Enteric Coated 81 MG Tablet PO SCH (09:08)
[2016-05-27] MEDS: cloNIDine HCl 0.1 MG TABLET PO SCH (09:08)
--- NOTE | 2016-05-27 11:30 | Discharge Summary ---
Date of Encounter: 05/27/16 Time of Encounter: 11:27 - Discharge Diagnosis (1) Pneumonia Priority: Primary Status: Acute Qualifiers: Pneumonia type: due to Pneumococcus Laterality: unspecified laterality Lung location: unspecified part of lung Qualified Code(s): J13 - Pneumonia due to Streptococcus pneumoniae (2) Acute exacerbation of chronic obstructive airways disease Priority: Primary Status: Acute (3) Influenza Priority: Primary Status: Resolved (4) DM (diabetes mellitus), type 2 Priority: Secondary Status: Chronic Qualifiers: Diabetes mellitus complication status: with unspecified complications 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 mellitus 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 designer insulin use: with care home use Qualified Code(s) : E11.8 - Type 2 diabetes mellitus with unspecified complications; Z79.4 - 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 press 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 operator (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) 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 (5) HTN (hypertension) Priority: Secondary Status: Chronic Qualifiers: Hypertension type: essential hypertension Qualified Code(s): I10 - Essential (primary) hypertension (6) JORGE (obstructive sleep apnea) Priority: Secondary Status: Chronic - Discharge Medications Prescriptions: PredniSONE 40 mg PO DAILY #7 tablet Home Medications: Amlodipine Besylate [Norvasc] 10 mg PO QAM 09/25/14 [History] Budesonide/Formoterol 160/4.5 [Symbicort] 2 puff IH BID 09/25/14 [History] Aspirin Enteric Coated [Aspirin EC] 81 mg PO QAM 11/03/14 [History] Metformin [Glucophage] 1,000 mg PO BID 02/10/15 [History] Pantoprazole Sodium [Protonix] 40 mg PO DAILY 02/10/15 [History] Glimepiride [Amaryl] 4 mg PO DAILY 05/03/15 [History] Losartan/Hydrochlorothiazide [Losartan-Hctz 100-25 mg Tab] 1 tab PO DAILY [History] Cyclobenzaprine HCl 10 mg PO TID PRN 02/20/16 [History] Ipratropium/Albuterol Neb [Duoneb] 3 ml IH Q6HR PRN #90 vial.neb 05/02/16 [Rx] Atorvastatin [Lipitor] 40 mg PO HS 05/16/16 [History] CloNIDine HCl [Clonidine HCl] 0.3 mg PO QID 05/16/16 [History] Roflumilast [Daliresp] 500 mcg PO DAILY 05/16/16 [History] PredniSONE 40 mg PO DAILY #7 tablet 05/27/16 [Rx] Allergies/Adverse Reactions: Allergies NSAIDS (Non-Steroidal Anti-Inflamma Allergy (Unknown, Verified 05/16/16 10:32) See Comments Listed on [facility] under allergies- Unknown Reaction Penicillins Allergy (Unknown, Verified 05/16/16 10:32) Hives lisinopril Adverse Reaction (Verified 05/16/16 10:32) Cough tramadol Adverse Reaction (Verified 05/16/16 00:48) Nausea Date of admission: 05/16/16 12:52 Primary care physician: PCP NO Consults: 05/17/16 10:58 Consult to Nutrition [CONS] Routine Comment: Consulting Provider: NUTRITION Reason for Dietary Consult: PO Supplementation 05/24/16 13:48 Consult to Speech Therapy [CONS] Routine Comment: Evaluate, develop and implement POC Reason for Consult: difficulty swallowing Call Completed: Yes 05/25/16 07:52 Consult to Occupational Therapy [CONS] Routine Comment: Evaluate, develop and implement POC Consult to Physical Therapy [CONS] Routine Comment: Evaluate, develop and implement POC Consult to Motor Transport Inspector [CONS] Routine Reason for SW Consult: Pt has home O2 Discharging clinician: Danelle Marsh Anticipated date of discharge: 05/27/16 - Patient Status Disposition: Home, Self-Care Condition: Fair Functional capacity at discharge: independent ambulation Overall status at discharge: patient is progressing back to baseline - Discharge Instructions Instructions: Prednisone (By mouth), Influenza (DC), Chronic Obstructive Pulmonary Disease (DC), Hypertension (DC) Follow Up With: Domitila Lau MD [Non-Partnered Physician] - 06/01/16 11:15 am (Please follow up as schedule..) - Diet and Activity Activity: resume usual activities as tolerated, wear oxygen at all times Diet: diabetic diet, low fat, low cholesterol, low salt diet Hospital course: Ms. Ren is a 56 year old female with multiple medical problems including severe COPD and chronic tobacco abuse was admitted with worsening respiratory distress and cough. She was noted to be in acute exacerbation of COPD and was admitted to ICU, underwent intubation and extubation. She was also noted to have possible underlying pneumonia although chest x-ray did not reveal any clear infiltrates. She completed a 5 day course of IV antibiotics and Tamiflu. Sputum culture grew Streptococcus pneumoniae and respiratory viral serology and culture was positive for influenza A&B. Patient was initially started on high-dose IV steroids and gradually was changed to a course of oral steroids. Her oxygen requirements gradually improved and she is currently noted to be saturating well on 4 L/m supplemental oxygen via nasal cannula. Patient is noted to have insurance issues and medical noncompliance, lead case manager and hospital social worker were on board. Before they could discuss medication options and evaluating for new prescription for supplemental oxygen, patient insisted on being discharged. She remained medically stable, medication compliance was reinforced and was recommended to follow up as an outpatient. She was also motivated to quit smoking and she claims not craving for cigarettes during her hospitalization and did not require nicotine patch. - Time Spent with Patient Total time spent providing and/or coordinating discharge services: Greater than 30 minutes (50 min) - Constitutional Vitals: Temp Pulse Resp BP Pulse Ox 97.5 F L 112 16 168/83 92 05/27/16 08:40 05/27/16 08:40 05/27/16 08:40 05/27/16 08:40 05/27/16 09:05 General appearance: Present: cooperative, A&O X 3 (anxious to be discharged), answers questions appropriately - Respiratory Respiratory exam: Present: CTAB. Absent: accessory muscle use, rales, rhonchi, wheezes - Cardiovascular Cardiovascular exam: Present: RRR, +S1, +S2, tachycardia. Absent: diastolic murmur, gallop, rubs, systolic murmur
[2016-05-27 12:04] VITALS: BP 152/86
[2016-05-27] MEDS: Nicotine 14 MG PATCH.TD24 TD SCH (12:17)
--- NOTE | 2016-05-27 17:18 | Internal Med Progress Note ---
Date of Encounter: 05/26/16 Time of Encounter: 13:00 - Assessment and plan (1) Pneumonia Status: Acute Assessment and plan: Improving clinically but continues to require high flow supplemental oxygen, wean down to 4 L today. Blood cultures remained negative. Sputum culture grows streptococcus pneumoniae. Viral serology positive for influenza B and respiratory viral culture is positive for influenza A. Patient completed a regimen of Tamiflu. Completed a course of Rocephin. Continue supportive care. Qualifiers: Pneumonia type: due to Pneumococcus Laterality: unspecified laterality Lung location: unspecified part of lung Qualified Code(s): J13 - Pneumonia due to Streptococcus pneumoniae (2) Acute exacerbation of chronic obstructive airways disease Status: Acute Assessment and plan: Improving slowly. Exacerbated by acute viral bronchitis along with possible underlying pneumonia. Patient has been intubated and successfully extubated during this hospitalization. Completed a course of empiric IV antibiotics. We will switch steroids to oral prednisone. Continue bronchodilators and supplemental oxygen. (3) Influenza Status: Resolved Assessment and plan: Positive for influenza A and B, as above. Completed a course of Tamiflu. Continue supportive care. (4) DM (diabetes mellitus), type 2 Status: Chronic Assessment and plan: Continue Accu-Chek blood glucose monitoring. Blood sugars noted to be better controlled. Continue basal bolus insulin regimen. Diabetic diet. Qualifiers: Diabetes mellitus complication status: with unspecified complications Diabetes mellitus nursing home insulin use: with nursing home use Qualified Code(s) : E11.8 - Type 2 diabetes mellitus with unspecified complications; Z79.4 - custodial (current) 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 (5) HTN (hypertension) Status: Chronic Qualifiers: Hypertension type: essential hypertension Qualified Code(s): I10 - Essential (primary) hypertension (6) JORGE (obstructive sleep apnea) Status: Chronic - Subjective Interval history: Appears much better today. Improving shortness of breath and cough. Able to tolerate oral diet, improving appetite. - Constitutional Vitals: Temp Pulse Resp BP Pulse Ox 97.7 F 101 18 152/86 92 05/27/16 11:56 05/27/16 11:56 05/27/16 11:56 05/27/16 11:56 05/27/16 11:56 General appearance: Present: cooperative, A&O X 3, answers questions appropriately - Respiratory Respiratory exam: Present: CTAB (Improving air entry bilaterally. No active wheezing or rhonchi.). Absent: accessory muscle use, rales, rhonchi, wheezes - Cardiovascular Cardiovascular exam: Present: RRR, +S1, +S2. Absent: diastolic murmur, gallop, rubs, systolic murmur - GI/Abdominal GI/Abdominal exam: Present: normal bowel sounds, soft, no peritoneal signs. Absent: distended, tenderness - Neurological Exam Neurological exam: Present: CN II-XII intact, oriented X3, no focal deficits. Absent: pronater drift, facial droop, speech deficit Internal Medicine: Result - Labs CBC & Chem 7: 05/25/16 06:49 05/25/16 06:49 - ABG Interpretation ABG results: ABG ABG pH 7.44 pH Units (7.32-7.45) 05/21/16 05:13 ABG pCO2 61 mmHg (35-45) H 05/21/16 05:13 ABG pO2 97 mmHg (85-104) 05/21/16 05:13 ABG O2 Saturation 98 % (95-98) 05/21/16 05:13 Consult Discharge Plan - Plan Instructions: Prednisone (By mouth), Influenza (DC), Chronic Obstructive Pulmonary Disease (DC), Hypertension (DC) Referrals: Domitila Lau MD [Non-Partnered Physician] - 06/01/16 11:15 am (Please follow up as schedule..) Prescriptions: PredniSONE 40 mg PO DAILY #7 tablet
== END 2016-05-27 12:45 | disposition home or self-care (01) | DRG 207 ==
LOC: 2ANU 00:43 → EMEROO 00:43 → 2ANU 05:26 → ICNU 08:24 → SUATTDRO 12:52 → 2ANU 05-23 09:42
PROVIDERS: ADMIT Internal Medicine; ATTEND Internal Medicine

== ENCOUNTER 2016-07-18 17:26 | Inpatient (IN) ==
[2016-07-18] MEDS ORDERED: methylPREDNISolone 125 MG/2 ML VIAL IVP ONE (17:35)
[2016-07-18] MEDS ORDERED: Ipratropium/Albuterol Neb 3 ML IH ONE (17:35)
--- NOTE | 2016-07-18 17:40 | Emergency Department Note ---
Disposition Clinical Impression: Acute exacerbation of chronic obstructive airways disease, Acute hyperglycemia Disposition: Admitted As Inpatient Condition: Fair Referrals: Domitila Lau MD [Primary Care Provider] - Time of Disposition: 18:50 SOB HPI - General Chief Complaint: ED Shortness of Breath/Dyspnea Stated Complaint: LESTER Time Seen by Provider: 07/18/16 17:34 Source: patient Mode of arrival: wheelchair Limitations: no limitations Nursing Notes Reviewed: Yes Vital Signs Reviewed: Yes - History of Present Illness 56-year-old with a history COPD comes in complaining of increasing shortness of breath or last couple days with a cough. Pt Subjective Complaint: shortness of breath, cough Onset (ago): day(s) (2) Severity: moderate Consistency/Duration: constant Improves with: nothing Worsens with: exertion Known history of: COPD Associated symptoms: Reports: cough, wheezing Cough present: Yes Cough Description: Involuntary Cough Frequency: Intermittent - Related Data Home Medications Medication Instructions Recorded Confirmed Amlodipine Besylate [Norvasc] 10 mg PO QAM 09/25/14 05/16/16 Budesonide/Formoterol 160/4.5 2 puff IH BID 09/25/14 05/16/16 [Symbicort] Aspirin Enteric Coated [Aspirin EC] 81 mg PO QAM 11/03/14 05/16/16 Metformin [Glucophage] 1,000 mg PO BID 02/10/15 05/16/16 Pantoprazole Sodium [Protonix] 40 mg PO DAILY 02/10/15 05/16/16 Glimepiride [Amaryl] 4 mg PO DAILY 05/03/15 05/16/16 Losartan/Hydrochlorothiazide 1 tab PO DAILY 05/03/15 05/16/16 [Losartan-Hctz 100-25 mg Tab] Cyclobenzaprine HCl 10 mg PO TID PRN 02/20/16 05/16/16 Atorvastatin [Lipitor] 40 mg PO HS 05/16/16 05/16/16 Roflumilast [Daliresp] 500 mcg PO DAILY 05/16/16 05/16/16 cloNIDine HCl [Clonidine HCl] 0.3 mg PO QID 05/16/16 05/16/16 Previous Rx's Medication Instructions Recorded Ipratropium/Albuterol Neb [Duoneb] 3 ml IH Q6HR PRN #90 vial.neb 05/02/16 predniSONE [PredniSONE] 40 mg PO DAILY #7 tablet 05/27/16 Azithromycin [Azithromycin 6-Tab 250 mg PO PER PKG DI #6 tab 06/28/16 Pack] predniSONE [PredniSONE] 40 mg PO DAILY #10 tablet 06/28/16 Azithromycin [Azithromycin 6-Tab 250 mg PO PER PKG DI #6 tab 07/09/16 Pack] Benzonatate [Tessalon] 100 mg PO TID PRN #20 capsule 07/09/16 predniSONE [PredniSONE] 60 mg PO DAILY #15 tablet 07/09/16 Allergies Allergy/AdvReac Type Severity Reaction Status Date / Time NSAIDS (Non-Steroidal Allergy Unknown See Verified 06/28/16 11:47 Anti-Inflamma Comments Penicillins Allergy Unknown Hives Verified 06/28/16 11:47 lisinopril AdvReac Cough Verified 06/28/16 11:47 tramadol AdvReac Nausea Verified 06/28/16 11:47 All systems ED: reviewed and negative except as stated. Constitutional: Denies: fever, chills, weakness, weight change Eyes: Denies: eye pain, eye discharge, vision change ENT ED: Denies: ear pain, throat pain, dental pain, hearing loss, epistaxis, congestion, dysphagia Cardiovascular: Denies: chest pain, palpitations, dyspnea on exertion, edema, syncope Respiratory: Reports: dyspnea, wheezes. Denies: cough, hemoptysis, stridor Gastrointestinal: Denies: abdominal pain, nausea, vomiting, diarrhea, constipation, hematemesis, melena, hematochezia Genitourinary: Denies: dysuria, frequency, hematuria, discharge Musculoskeletal: Denies: back pain, neck pain, arthralgia, myalgia Integumentary: Denies: rash, abrasion, lesions Neurological: Denies: headache, weakness, numbness, paresthesias, confusion, abnormal gait, vertigo Psychiatric: Denies: anxiety, depression, suicidal thoughts, homicidal thoughts , auditory hallucinations, visual hallucinations Endocrine: Denies: fatigue Hematological/Lymphatic: Denies: easy bleeding, easy bruising Allergic/Immunologic: Denies: facial swelling, urticaria Past Medical History - Past Medical History Medical history: Reports: COPD, diabetes, GERD, hyperlipidemia, hypertension, renal disease, other Surgical history: Reports: appendectomy, cholecystectomy, knee replacement, other Psychiatric history: Reports: no psych history 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-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, ectopic , other - Social History Smoking Status: Former smoker Smokeless Tobacco Status: No Alcohol use: Reports: none Drug use: Reports: none Physical Exam - General Limitations: no limitations General appearance: alert - Head Head exam: atraumatic, normocephalic, normal inspection - Eye Eye exam: Present: normal appearance, PERRL, EOMI - ENT ENT exam: normal exam, normal oropharynx, mucous membranes moist - Neck Neck exam: Present: normal inspection, full ROM, trachea midline - Chest Chest inspection: Present: normal inspection, symmetric chest wall rise - Respiratory Respiratory exam: Present: wheezes, prolonged expiratory phase - Cardiovascular Cardiovascular exam: Present: regular rate, normal rhythm, normal heart sounds - Abdominal Exam Abdominal exam: Present: soft, Non-Tender. Absent: tenderness, distention, guarding, rebound, rigidity - Extremities Exam Extremities exam: Present: normal inspection, full ROM. Absent: tenderness, pedal edema - Expanded Lower Extremity Exam Neurovascular/Tendon exam: Absent: motor deficit, sensory deficit, tendon deficit Gait: observed and normal - Back Exam Back exam: Present: normal inspection, full ROM. Absent: tenderness - Neurological Exam Neurological exam: Present: alert, oriented X3 - Psychiatric Psychiatric exam: Present: normal affect, normal mood - Skin Skin exam: Present: warm, dry, intact, normal color Course - Reevaluation(s) Reevaluation #1: 56-year-old COPD or comes in with 2 days of increasing shortness of breath. Patient is wheezy on arrival. X-ray shows no acute findings. She does have a lactate that is elevated at 8. Her glucose is 795. Time: 18:50 - Consultations Consultation #1: Discussed with Dr. Pena, admit Time: 19:02 Vital Signs Temperature 98.4 F 07/18/16 17:30 Pulse Rate 124 07/18/16 17:30 Respiratory Rate 22 07/18/16 17:30 Blood Pressure 159/84 07/18/16 17:30 O2 Sat by Pulse Oximetry 94 07/18/16 17:30 Temperature 98.4 F 07/18/16 17:30 Pulse Rate 124 07/18/16 17:30 Respiratory Rate 10 07/18/16 17:56 Blood Pressure 159/84 07/18/16 17:30 O2 Sat by Pulse Oximetry 98 07/18/16 17:56 Oxygen Delivery Oxygen Delivery Nasal Cannula Shortness of Breath/Dyspnea - Lab Data Lab results reviewed: Yes I reviewed the patient's lab results. Result diagrams: 07/18/16 17:55 07/18/16 17:55 Lab Results 07/18/16 07/18/16 07/18/16 Range/Units 17:55 17:55 17:55 WBC 13.0 H (4.3-11.1) K/mcL RBC 4.59 (3.82-4.97) M/mcL Hgb 13.6 (11.5-15.4) g/dL Hct 42.3 (35.3-44.9) % MCV 92.2 (83.0-100.0) fL MCH 29.6 (28.0-33.3) pg MCHC 32.2 (31.6-35.5) g/dL RDW 17.2 H (11.5-14.5) % Plt Count 312 (140-400) K/mcL MPV 10.8 (9.4-12.4) fL Seg Neutrophils % 85.0 % Band Neutrophils % 11.0 H (0-4) % Lymphocytes % 3.0 % Monocytes % 1.0 % Neutrophils # 12.5 H (1.6-8.9) K/mcL Lymphocytes # 0.4 L (0.6-4.6) K/mcL Monocytes # 0.1 (0.0-1.3) K/mcL Nucleated RBCs/100 WBC 0.3 H (0) /100 WBC Platelet Estimate Normal (Normal) Polychromasia 1+ A (Not Present) Sodium 135 L (136-145) mEq/L Potassium 4.3 (3.5-4.5) mEq/L Chloride 96 L (98-109) mEq/L Carbon Dioxide 20 (19-29) mEq/L BUN 23 H (7-20) mg/dL Creatinine 1.52 H (0.57-1.11) mg/dL Est GFR ( Amer) 43 L (> 60) Est GFR (Non-Af Amer) 35 L (> 60) BUN/Creatinine Ratio 15 (6-26) Glucose 795 H* (70-99) mg/dL Calculated Osmolality 322 H (280-300) Lactic Acid 8.2 H* (0.5-2.2) mmol/L Calcium 9.0 (8.6-10.8) mg/dL Troponin I (0-0.03) ng/mL B-Natriuretic Peptide (0-100) pg/mL 07/18/16 07/18/16 Range/Units 17:55 17:55 WBC (4.3-11.1) K/mcL RBC (3.82-4.97) M/mcL Hgb (11.5-15.4) g/dL Hct (35.3-44.9) % MCV (83.0-100.0) fL MCH (28.0-33.3) pg MCHC (31.6-35.5) g/dL RDW (11.5-14.5) % Plt Count (140-400) K/mcL MPV (9.4-12.4) fL Seg Neutrophils % % Band Neutrophils % (0-4) % Lymphocytes % % Monocytes % % Neutrophils # (1.6-8.9) K/mcL Lymphocytes # (0.6-4.6) K/mcL Monocytes # (0.0-1.3) K/mcL Nucleated RBCs/100 WBC (0) /100 WBC Platelet Estimate (Normal) Polychromasia (Not Present) Sodium (136-145) mEq/L Potassium (3.5-4.5) mEq/L Chloride (98-109) mEq/L Carbon Dioxide (19-29) mEq/L BUN (7-20) mg/dL Creatinine (0.57-1.11) mg/dL Est GFR ( Amer) (> 60) Est GFR (Non-Af Amer) (> 60) BUN/Creatinine Ratio (6-26) Glucose (70-99) mg/dL Calculated Osmolality (280-300) Lactic Acid (0.5-2.2) mmol/L Calcium (8.6-10.8) mg/dL Troponin I 0.00 (0-0.03) ng/mL B-Natriuretic Peptide 63 (0-100) pg/mL - Radiology Data Radiology results reviewed: Yes I reviewed the patient's radiology results. Chest X-Ray 07/18/16 17:35 IMPRESSION: Mild left basilar atelectasis versus scarring. D/ / Live Jimenes MD / Live Jimenes MD Interpreting Provider: Live Jimenes MD - EKG Data EKG attestation: Yes I reviewed and interpreted this EKG. EKG shows normal: Reports: sinus rhythm Rate: Reports: tachycardia Rhythm: Reports: NSR Interpretation: Reports: no acute changes Critical Care Time Critical Care Time: Yes Total Critical Care Time: 30 Attestation: The high probability of a clinically significant, sudden or life threatening deterioration of the [cardiovascular, endocrine] system(s) required my full and direct attention, intervention and personal management. The aggregate critical care time was [30] minutes. This time is in addition to time spent performing reported procedures but includes the following: [x] Data Review and interpretation [x] Patient assessment and monitoring of vital signs [x] Documentation [x] Medication orders and management
[2016-07-18 18:11] LABS: Hematocrit 42.3 % (35.3-44.9); Hemoglobin 13.6 g/dL (11.5-15.4); Mean Corpuscular HGB Conc 32.2 g/dL (31.6-35.5); Mean Corpuscular Hemoglobin 29.6 pg (28.0-33.3); Mean Corpuscular Volume 92.2 fL (83.0-100.0); Mean Platelet Volume 10.8 fL (9.4-12.4); Nucleated Red Blood Cells 0.3 /100 WBC (0); Platelet Count 312 K/mcL (140-400); Red Blood Count 4.59 M/mcL (3.82-4.97); Red Cell Distribution Width 17.2 % (11.5-14.5)
[2016-07-18 18:24] LABS: Potassium 4.3 mEq/L (3.5-4.5)
[2016-07-18 18:27] LABS: Lymphocytes # 0.4 K/mcL (0.6-4.6); Monocytes # 0.1 K/mcL (0.0-1.3); Neutrophils # 12.5 K/mcL (1.6-8.9); Platelet Estimate Normal (Normal)
[2016-07-18 18:28] LABS: Polychromasia 1+ (Not Present)
[2016-07-18] MEDS ORDERED: 0.9 % Sodium Chloride 250 ML IVC ONE (18:35)
[2016-07-18] MEDS ORDERED: Insulin Regular, Human 100 UNIT/ML IV ONE (18:39)
[2016-07-18] MEDS ORDERED: *HR* Dextrose 50 % in Water (Syg) 50 ML SYRINGE IVP PRN ×2 (18:42→20:13)
[2016-07-18] MEDS ORDERED: 0.9 % Sodium Chloride 1,000 ML IVC SCH (18:45)
[2016-07-18] MEDS ORDERED: Insulin Human Regular 100 UNIT in 0.9 % Sodium Chloride 100 ML IVC SCH ×2 (18:45→20:15)
[2016-07-18] MEDS ORDERED: Levofloxacin 750 MG/150 ML 750 MG/150 ML BAG IVPB ONE (19:01)
[2016-07-18] MEDS ORDERED: 0.9 % Sodium Chloride 1,000 ML IVC ONE (20:08)
[2016-07-18] MEDS ORDERED: D5% in 0.45% NACL w KCl 20 MEQ/1,000 ML MLS IVC PRN (20:13)
[2016-07-18] MEDS ORDERED: Insulin Regular, Human 100 UNIT/ML IV PRN (20:13)
[2016-07-18] MEDS ORDERED: D5% in 0.45% NACL 1,000 ML IVC PRN (20:13)
[2016-07-18] MEDS ORDERED: 0.9 % Sodium Chloride w KCl 20 MEQ/1,000 ML MLS IVC SCH (20:15)
[2016-07-18] MEDS ORDERED: Naloxone 0.4 MG/ML INJ IVP PRN (20:17)
[2016-07-18 20:34] LABS: VBG HCO3 27.3 mEq/L (21-27); VBG PH 7.32 pH Units (7.32-7.42)
[2016-07-18 20:38] LABS: Beta-Hydroxybutyric Acid 0.29 mmol/L (0.02-0.27)
[2016-07-18 20:46] LABS: BUN/Creatinine Ratio 21 (6-26); Blood Urea Nitrogen 22 mg/dL (7-20); Carbon Dioxide 24 mEq/L (19-29); Chloride 101 mEq/L (98-109); Glucose 421 mg/dL (70-99); Magnesium 1.6 mg/dL (1.6-2.6); Osmolality,Calculated 311 (280-300); Potassium 4.4 mEq/L (3.5-4.5); Sodium 140 mEq/L (136-145); eGFR For African Americans > 60 (> 60); eGFR For Non-African Americans 53 (> 60)
[2016-07-18 20:50] LABS: INR 0.9; Prothrombin Time 10.1 Seconds (9.4-12.1)
[2016-07-18 20:51] LABS: Activated Partial Thrombo Time 21.6 Seconds (26.0-36.0)
[2016-07-18] MEDS ORDERED: Vancomycin (wt based) 1,000 MG VIAL IVPB SCH (21:00)
--- NOTE | 2016-07-18 21:07 | Internal Med History&Physical ---
<Ruddy Zhang - Last Filed: 07/18/16 20:52> Date of Encounter: 07/18/16 Time of Encounter: 20:52 Assessment and Plan (1) DKA (diabetic ketoacidosis) Current visit: Yes Status: Acute Patient presents with hyperglycemia measured at 795 on presentation. Anion gap was 19. Blood gases, urinalysis, serum ketones were not checked however given the patient's glucose and anion gap we will treat for DKA. Insulin drip as been initiated per protocol. Patient received initial fluid bolus of 2225 mL, will institute fluid hydration per DKA protocol however will half the rate of the normal protocol due to significant lower extremity edema and concern for developing pulmonary edema. BMP every 4 hours, we will check VBG, urinalysis, serum ketones. Patient will likely be kept on an insulin drip until the morning as there is concern for aspiration and the patient will be nothing by mouth until she can be evaluated by speech therapy. Qualifiers: Diabetes mellitus type: type 2 Diabetes mellitus complication detail: without coma Qualified Code(s): E13.10 - Other specified diabetes mellitus with ketoacidosis without coma (2) Severe sepsis Current visit: Yes Status: Acute Patient presents with leukocytosis, tachycardia, and lactic acid of 8.2 with likely source appearing pulmonary given the patient's clinical symptoms. Blood cultures have been drawn, will initiate antibiotics for healthcare associated pneumonia. Fluid hydration given with a initial bolus of 30 mL/kg and then maintenance fluids per the DKA protocol as discussed above. We will redraw lactate in 6 hours. (3) Pneumonia Current visit: No Status: Acute No evidence on chest x-ray but given the patient's clinical symptoms including shortness of breath and productive cough with green sputum as well as tachycardia and leukocytosis pneumonia appears likely. Lack of x-ray findings could be attributed to the patient's severe dehydration in setting of DKA. We will treat for healthcare associated pneumonia as the patient was recently admitted in the ICU and on mechanical ventilator at that time. Patient has a penicillin allergy so antibiotics were initiated with Levaquin, aztreonam, vancomycin. Qualifiers: Pneumonia type: due to unspecified organism Laterality: unspecified laterality Lung location: unspecified part of lung Qualified Code(s): J18.9 - Pneumonia, unspecified organism (4) Acute exacerbation of chronic obstructive airways disease Current visit: Yes Status: Acute Likely related to pneumonia as discussed above. Antibiotics have been initiated , Solu-Medrol 60mg every 6 hours, scheduled DuoNeb's. We will also give Symbicort twice a day. (5) DM (diabetes mellitus), type 2 Current visit: No Status: Chronic Uncontrolled complicated by DKA as discussed above. Continue treatment for DKA until the patient is able to eat at which time we will start subcutaneous insulin. Most recent A1c was approximately 2 months ago which was 7.9. We will recheck in the morning. Patient is noncompliant with her diabetes regimen , she may benefit from referral to the family living educator. Qualifiers: Diabetes mellitus complication status: with unspecified complications Diabetes mellitus residential insulin use: with residential use Qualified Code(s) : E11.8 - Type 2 diabetes mellitus with unspecified complications; Z79.4 - intermediate (current) 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 (6) HTN (hypertension) Current visit: No Status: Chronic Hypertensive on arrival. Holding by mouth meds to DKA as discussed above. We will treat with hydralazine when necessary and restart home meds when able. Qualifiers: Hypertension type: essential hypertension Qualified Code(s): I10 - Essential (primary) hypertension (7) DVT prophylaxis Current visit: No Status: Acute Heparin 5000 units subcutaneous twice a day Internal Medicine - H&P: HPI Chief complaint: Dyspnea Admitted From: Emergency Dept Plans for Post Hospital Care: Home History of present illness: Ms. Ren is a 56 year old female with history of COPD, diabetes type 2 presents with shortness of breath. Patient states that her shortness of breath began approximately 3 days ago and has gradually been getting worse. She also reports a cough that is productive with green sputum. She also reports an episode of hemoptysis 3 days ago which she had approximately 2 tablespoons of bright red blood. No hemoptysis since. She reports occasional chest pain associated with shortness of breath. She denies fever, chills, abdominal pain, nausea, vomiting. Patient also reports polyuria and polydipsia. She states she is not compliant with a diabetic diet. She states she normally checks her blood sugars when they are normally running in the low 100s, she states she has not checked them recently. Past Med Surg Social Fam HX - Past Medical History Medical history: COPD, diabetes, GERD, hyperlipidemia, hypertension, renal disease, other Psychiatric history: no psych history - Past Surgical History Surgical History: appendectomy, cholecystectomy, knee replacement, other - Social History Smoking Status: Former smoker Smokeless Tobacco Status: No Alcohol use: none Drug use: none - Family History Father Family Member Ethnicity: Non- Living Status: Hx Family Cardiac Disorders: Yes (atherrosclerosis) Mother Family Member Ethnicity: Non- Living Status: Still Living Hx Family Cardiac Disorders: Yes (Hypertension) Hx Family Respiratory Disorders: No Hx Family Cancer: No Hx Family GI Disorders: No Hx Family Endocrine Disorder: Yes (Diabetes mellitus) Hx Family Neuromuscular Disorders: No Hx Family Neurologic Disorders: No Hx Family HEENT Disorders: No Hx Family Autoimmune Disorders: No Internal Medicine - H&P: Meds Amlodipine Besylate [Norvasc] 10 mg PO QAM 09/25/14 [History] Budesonide/Formoterol 160/4.5 [Symbicort] 2 puff IH BID 09/25/14 [History] Aspirin Enteric Coated [Aspirin EC] 81 mg PO QAM 11/03/14 [History] Metformin [Glucophage] 1,000 mg PO BID 02/10/15 [History] Pantoprazole Sodium [Protonix] 40 mg PO DAILY 02/10/15 [History] Glimepiride [Amaryl] 4 mg PO DAILY 05/03/15 [History] Losartan/Hydrochlorothiazide [Losartan-Hctz 100-25 mg Tab] 1 tab PO DAILY [History] Cyclobenzaprine HCl 10 mg PO TID PRN 02/20/16 [History] Ipratropium/Albuterol Neb [Duoneb] 3 ml IH Q6HR PRN #90 vial.neb 05/02/16 [Rx] Atorvastatin [Lipitor] 40 mg PO HS 05/16/16 [History] Roflumilast [Daliresp] 500 mcg PO DAILY 05/16/16 [History] cloNIDine HCl [Clonidine HCl] 0.3 mg PO QID 05/16/16 [History] predniSONE [PredniSONE] 40 mg PO DAILY #7 tablet 05/27/16 [Rx] Azithromycin [Azithromycin 6-Tab Pack] 250 mg PO PER PKG DI #6 tab 06/28/16 [Rx] predniSONE [PredniSONE] 40 mg PO DAILY #10 tablet 06/28/16 [Rx] Azithromycin [Azithromycin 6-Tab Pack] 250 mg PO PER PKG DI #6 tab 07/09/16 [Rx] Benzonatate [Tessalon] 100 mg PO TID PRN #20 capsule 07/09/16 [Rx] predniSONE [PredniSONE] 60 mg PO DAILY #15 tablet 07/09/16 [Rx] Allergies NSAIDS (Non-Steroidal Anti-Inflamma Allergy (Unknown, Verified 06/28/16 11:47) See Comments Listed on [facility] under allergies- Unknown Reaction Penicillins Allergy (Unknown, Verified 06/28/16 11:47) Hives lisinopril Adverse Reaction (Verified 06/28/16 11:47) Cough tramadol Adverse Reaction (Verified 06/28/16 11:47) Nausea All Systems PM: A 10-system review of systems was performed and is negative for pertinent findings except as documented above in the HPI. - Constitutional Constitutional: no chills, no fever(s) - EENT Eyes: no blurry vision, no change in vision Nose, mouth and throat: no sinus pain, no sinus pressure, no sore throat - Cardiovascular Cardiovascular ROS IM: dyspnea, edema, orthopnea, no chest pain, no palpitations , no syncope - Respiratory Respiratory: cough, dyspnea, hemoptysis, chest congestion, excessive phlegm production, change in phlegm color - Gastrointestinal Gastrointestinal: no abdominal pain, no diarrhea, no nausea, no vomiting - Genitourinary Genitourinary: urinary frequency, no dysuria, no hematuria, no urinary hesitancy - Musculoskeletal Musculoskeletal ROS IM: arthralgias, myalgias, no numbness, no tingling - Integumentary Integumentary IM: no erythema, no rash - Neurological Neurological ROS: no confusion, no focal weakness, no numbness, no weakness - Psychiatric Psychiatric: anxiety, no depression - Hematologic/Lymphatic Hematologic/Lymphatic: no easy bleeding, no easy bruising - Constitutional Vitals: Temp Pulse Resp BP Pulse Ox 98.4 F 124 18 171/105 98 07/18/16 17:30 07/18/16 17:30 07/18/16 19:53 07/18/16 19:53 07/18/16 17:56 General appearance: Present: A&O X 3, pleasant, no acute distress - Head Head exam: Present: atraumatic, normal inspection, normocephalic - Eye Eye exam: Present: EOMI, PERRL - ENT ENT exam: Present: mucous membranes moist - Neck Neck exam general surgery: Present: full ROM. Absent: tenderness - Respiratory Respiratory exam: Present: decreased breath sounds (bilaterally), wheezes ( Scattered throughout, best heard anteriorly). Absent: rales, respiratory distress, rhonchi, tachypnea - Cardiovascular Cardiovascular exam: Present: tachycardia (regular). Absent: gallop, rubs, systolic murmur - GI/Abdominal GI/Abdominal exam: Present: normal bowel sounds, soft. Absent: distended, tenderness - Extremities Exam Extremities exam: Present: pedal edema (2+), warm. Absent: tenderness - Neurological Exam Neurological exam: Present: alert, CN II-XII intact, oriented X3, no focal deficits - Skin Skin exam: Present: dry, intact, warm Internal Med - H&P Results - Labs CBC & Chem 7: 07/18/16 17:55 07/18/16 20:23 Labs: BMP 07/18/16 20:23 Sodium 140 Potassium 4.4 Chloride 101 Carbon Dioxide 24 BUN 22 H Creatinine 1.06 Glucose 421 H Calcium 9.0 <Stuart Kamara - Last Filed: 07/18/16 22:51> Date of Encounter: 07/18/16 Internal Medicine - H&P: HPI History of present illness: Ms. Ren is a 56 year old female All Systems PM: A 10-system review of systems was performed and is negative for pertinent findings except as documented above in the HPI. - Constitutional Vitals: Temp Pulse Resp BP Pulse Ox 98.4 F 99 18 171/105 98 07/18/16 17:30 07/18/16 21:45 07/18/16 19:53 07/18/16 19:53 07/18/16 17:56 Internal Med - H&P Results - Labs CBC & Chem 7: 07/18/16 17:55 07/18/16 20:23 Labs: BMP 07/18/16 20:23 Sodium 140 Potassium 4.4 Chloride 101 Carbon Dioxide 24 BUN 22 H Creatinine 1.06 Glucose 421 H Calcium 9.0 - ABG Interpretation ABG results: 07/18/16 20:22 VBG pH 7.32 VBG pCO2 53 H VBG pO2 34 VBG HCO3 27.3 H - Attending Attestation I examined this patient and my medical decision-making was reviewed with the Resident Physician, Dr. Ruddy Norman. I agree with the documented findings , disposition and treatment plan as described except to the extent set forth below. The patient is unstable and there is high probability of emergent and significant clinical decompensation with potential impairment of organ function including cardiovascular system and respiratory system. I have performed 35 minutes of critical care time which involved decision making of high complexity to assess, manipulate, and support vital organ system, in order to prevent further life threatening deterioration of the patient's condition. The time involved in resident teaching and the performance of any procedures was not counted toward critical care time and will be billed separately. Critical care time was spent evaluating the patient, reviewing EKGs, telemetry tracing, imaging studies and laboratory data, discussing the case with the emergency department physician, ordering medications and additional laboratory studies and frequent reevaluation for clinical response. Her EKG reveals sinus tachycardia at 120 bpm, no ST or T-wave changes. The patient has a history of heavy smoking and she quit about 2-1/2 months ago. I have encouraged the patient to continue to refrain from smoking and reinforced family support as one of the most important factor for residential success. Per my review her chest x-ray shows possible small left pleural effusion and possible small underlying infiltrate. Given all clinical findings we will treat her as pneumonia. We will obtain sputum culture and sensitivities. For COPD we will treat her with IV steroids and inhaled albuterol and ipratropium. She has quite significant lactic acidosis which is likely secondary to severe sepsis. Additionally caused by metformin and dehydration and acute kidney injury.
[2016-07-18] MEDS ORDERED: Vancomycin 1,750 MG in D5% in Water 500 ML IVPB ONE (21:14)
[2016-07-18] MEDS: *HR* Morphine 2 MG/ML SYRINGE IVP PRN (22:44)
[2016-07-18] MEDS: Aztreonam 2,000 MG in D5% in Water (Mini-Bag+) 100 ML IVPB SCH (22:45)
[2016-07-18 23:35] LABS: Bilirubin,Urine Negative (Negative); Blood,Urine Negative (Negative); Clarity,Urine Clear (Clear); Color,Urine Yellow (Yellow); Glucose,Urine (UA) 500 mg/dL (Normal); Ketones,Urine Negative (Negative); Leukocyte Esterase,Urine Negative (Negative); Nitrite,Urine Negative (Negative); Protein,Urine 100 mg/dL (Neg-Trace); Specific Gravity,Urine 1.013 (1.010-1.025); Urobilinogen,Urine Normal (Normal)
[2016-07-18 23:36] LABS: Bacteria,Urine None Seen per hpf (None-Few); Hyaline Casts,Urine None Seen per lpf (None-Few); Squamous Epithelial Cell,Urine Moderate per lpf (None-Few); WBC,Urine 0-3 per hpf (0-3)
--- NOTE | 2016-07-18 23:44 | Event Note ---
Date of Encounter: 07/18/16 Time of Encounter: 23:42 I have evaluated the patient at the bedside. She reports continued shortness of breath. On exam she appears to be tachypneic and in moderate respiratory distress. Lung exam reveals diminished breath sounds throughout and scattered wheezes Plan: We will add BiPAP for work of breathing. Repeat labs show improvement and creatinine. We will continue with IV fluids, insulin drip and IV antibiotics. Urinalysis shows no concern for UTI. I believe the source of infection is pneumonia. We will obtain sputum culture.
[2016-07-18] MEDS: cloNIDine HCl 0.1 MG TABLET PO SCH (23:49)
[2016-07-18] MEDS: methylPREDNISolone 125 MG/2 ML VIAL IVP SCH (23:51)
[2016-07-18 23:54] LABS: Amphetamine Screen,Urine Negative ng/mL (Cutoff=1000); Barbiturate Screen,Urine Negative ng/mL (Cutoff=200); Benzodiazepines Screen,Urine Negative ng/mL (Cutoff=200); Cannabinoid Screen,Urine Negative ng/mL (Cutoff = 50); Cocaine Screen,Urine Negative ng/mL (Cutoff= 300); Opiate Screen,Urine Positive ng/mL (Cutoff=300); Phencyclidine Screen,Urine Negative ng/mL (Cutoff=25)
[2016-07-19] MEDS: Ipratropium/Albuterol Neb 3 ML IH SCH ×6 (00:24→21:27)
[2016-07-19] MEDS ORDERED: *HR* Labetalol 20 MG/4 ML SYRINGE IVP ONE ×2 (00:30→00:36)
[2016-07-19] MEDS: ALPRAZolam 0.5 MG TABLET PO PRN ×3 (00:44→21:40)
[2016-07-19 01:32] LABS: BUN/Creatinine Ratio 31 (6-26); Blood Urea Nitrogen 20 mg/dL (7-20); Calcium 7.9 mg/dL (8.6-10.8); Carbon Dioxide 24 mEq/L (19-29); Chloride 107 mEq/L (98-109); Glucose 152 mg/dL (70-99); Hemoglobin A1C 10.1 %; Osmolality,Calculated 300 (280-300); Sodium 142 mEq/L (136-145); eGFR For African Americans > 60 (> 60); eGFR For Non-African Americans > 60 (> 60)
[2016-07-19] MEDS ORDERED: *HR* Dextrose 50 % in Water (Syg) 50 ML SYRINGE IVP PRN (03:55)
[2016-07-19] MEDS ORDERED: Dextrose Gel 15 GM PO PRN ×2 (03:55)
[2016-07-19] MEDS ORDERED: Insulin DETEMIR 100 UNIT/ML X5UNITS SQ SCH ×3 (03:55→21:00)
[2016-07-19] MEDS ORDERED: D5% in Water 1,000 ML IVC PRN (03:55)
[2016-07-19] MEDS ORDERED: 0.9 % Sodium Chloride 1,000 ML IVC SCH (04:00)
[2016-07-19] MEDS: Aztreonam 2,000 MG in D5% in Water (Mini-Bag+) 100 ML IVPB SCH ×3 (04:15→19:23)
[2016-07-19] MEDS: *HR* Morphine 2 MG/ML SYRINGE IVP PRN ×3 (04:23→13:58)
[2016-07-19] MEDS: *HR* Heparin 5,000 UNIT/ML VIAL SQ SCH ×2 (05:45→17:12)
[2016-07-19] MEDS: methylPREDNISolone 125 MG/2 ML VIAL IVP SCH ×3 (05:45→17:12)
[2016-07-19] MEDS ORDERED: Insulin LISPRO 300 UNITS/3 ML VIAL SQ SCH ×2 (07:30→21:00)
[2016-07-19 07:42] LABS: BUN/Creatinine Ratio 29 (6-26); Blood Urea Nitrogen 20 mg/dL (7-20); Calcium 8.1 mg/dL (8.6-10.8); Carbon Dioxide 23 mEq/L (19-29); Chloride 104 mEq/L (98-109); Glucose 241 mg/dL (70-99); Osmolality,Calculated 299 (280-300); Potassium 4.3 mEq/L (3.5-4.5); Sodium 139 mEq/L (136-145); eGFR For African Americans > 60 (> 60); eGFR For Non-African Americans > 60 (> 60)
[2016-07-19 07:46] LABS: Hematocrit 35.3 % (35.3-44.9); Mean Corpuscular HGB Conc 32.9 g/dL (31.6-35.5); Mean Corpuscular Hemoglobin 30.4 pg (28.0-33.3); Mean Corpuscular Volume 92.7 fL (83.0-100.0); Mean Platelet Volume 10.8 fL (9.4-12.4); Nucleated Red Blood Cells 0.4 /100 WBC (0); Platelet Count 248 K/mcL (140-400); Red Blood Count 3.81 M/mcL (3.82-4.97); Red Cell Distribution Width 17.2 % (11.5-14.5)
[2016-07-19 07:59] LABS: Hemoglobin 11.6 g/dL (11.5-15.4)
[2016-07-19 08:26] LABS: Anisocytosis 1+ (Not Present); Lymphocytes # 0.3 K/mcL (0.6-4.6); Monocytes # 0.3 K/mcL (0.0-1.3); Neutrophils # 12.5 K/mcL (1.6-8.9); Platelet Estimate Normal (Normal); Poikilocytosis 1+ (Not Present); Polychromasia 1+ (Not Present)
[2016-07-19] MEDS ORDERED: Aminoglycoside Consult 1 EACH MC ONE (08:38)
[2016-07-19] MEDS: cloNIDine HCl 0.1 MG TABLET PO SCH ×4 (08:41→20:36)
[2016-07-19] MEDS: Gabapentin 300 MG CAPSULE PO SCH ×3 (08:41→20:47)
--- NOTE | 2016-07-19 09:19 | Internal Med Progress Note ---
Date of Encounter: 07/19/16 Time of Encounter: 09:15 - Assessment and plan (1) DKA (diabetic ketoacidosis) Current Visit: Yes Status: Acute Assessment and plan: likely exacerbated by infection, COPD along with medical noncompliance. Currently anion gap has closed and sugars are better controlled, although still in 200s. Off IV insulin drip; start basal bolus subcutaneous insulin regimen with diabetic diet. Off IV hydration. Qualifiers: Diabetes mellitus type: type 2 Diabetes mellitus complication detail: without coma Qualified Code(s): E13.10 - Other specified diabetes mellitus with ketoacidosis without coma (2) Pneumonia Current Visit: Yes Status: Acute Assessment and plan: f/up blood cultures. Chest XRay shows no clear e/o Pneumonia. Continue IV Aztreonam, Vancomycin and Levaquin due to recent hospitalization; de-escalate antibiotics if cultures are negative. Will send respiratory infection panel. Qualifiers: Pneumonia type: due to unspecified organism Laterality: unspecified laterality Lung location: unspecified part of lung Qualified Code(s): J18.9 - Pneumonia, unspecified organism (3) Sepsis Current Visit: Yes Status: Acute Assessment and plan: presented with fever, tachycardia, leukocytosis and respiratory distress, being treated for probable Pneumonia; plan as above; f/up Echocardiogram; IV fluids were limited due to pedal edema and volume overload; Qualifiers: Sepsis type: sepsis due to unspecified organism Qualified Code(s): A41.9 - Sepsis, unspecified organism (4) Acute exacerbation of chronic obstructive airways disease Current Visit: Yes Status: Acute Assessment and plan: patient reports compliance to Symbicort and Duonebs despite insurance issues. Continue IV steroids, bronchodilators and supplemental O2 as needed; has been on BiPAP overnight; needs to f/up as outpatient for pressure titration and currently is not compliant with CPAP at home. (5) HLD (hyperlipidemia) Current Visit: Yes Status: Chronic Qualifiers: Hyperlipidemia type: other hyperlipidemia Qualified Code(s): E78.4 - Other hyperlipidemia (6) Tobacco abuse Current Visit: Yes Status: Inactive Assessment and plan: reports abstaining from smoking since her last hospitalization about 2 months ago; congratulated patient on her efforts; (7) DM (diabetes mellitus), type 2 Current Visit: Yes Status: Chronic Assessment and plan: Medical noncompliance due to no insurance. HbA1C increased to 10.1% from around 7.5% during last admission. Increase basal insulin and continue sliding scale; diabetic diet; social work job titles consult. Qualifiers: Diabetes mellitus complication status: with ketoacidosis Diabetes mellitus complication detail: without coma Diabetes mellitus fdc insulin use: with extermination inspector use Qualified Code(s): E13.10 - Other specified diabetes mellitus with ketoacidosis without coma; Z79.4 - [facility] (current) 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 (8) HTN (hypertension) Current Visit: Yes Status: Chronic Assessment and plan: BP noted to be above target; continue Clonidine and use PRN IV Hydralazine; patient may need to be started on another antihypertensive; Qualifiers: Hypertension type: essential hypertension Qualified Code(s): I10 - Essential (primary) hypertension - Subjective Interval history: Reports feeling better; no nausea, vomiting, abdominal pain; improving shortness of breath; was on BiPAP last night; reports that she quit smoking at this time; awaiting Pulmonary appointment for BiPAP titration, and currently does not use it at home; - Constitutional Vitals: Temp Pulse Resp BP Pulse Ox 97.4 F L 89 18 166/90 95 07/19/16 07:19 07/19/16 07:19 07/19/16 07:19 07/19/16 07:19 07/19/16 07:19 General appearance: Present: A&O X 3, answers questions appropriately - Respiratory Respiratory exam: Present: decreased breath sounds (B/L decreased air entry). Absent: accessory muscle use, rales, rhonchi, wheezes - Cardiovascular Cardiovascular exam: Present: RRR, +S1, +S2, tachycardia. Absent: diastolic murmur, gallop, rubs, systolic murmur - GI/Abdominal GI/Abdominal exam: Present: normal bowel sounds, soft (obese), no peritoneal signs. Absent: distended, tenderness - Extremities Exam Extremities exam: Present: pedal edema (2+ pitting pedal edema B/L upto knees), warm, radial pulses palpable and symetrical. Absent: calf tenderness, cyanotic - Neurological Exam Neurological exam: Present: CN II-XII intact, oriented X3, no focal deficits. Absent: pronater drift, facial droop, speech deficit - Skin Skin exam: Present: dry, intact Internal Medicine: Result - Labs CBC & Chem 7: 07/19/16 06:51 07/19/16 06:51 Labs: Short CBC 07/19/16 Range/Units 06:51 WBC 13.3 H (4.3-11.1) K/mcL Hgb 11.6 D (11.5-15.4) g/dL Hct 35.3 (35.3-44.9) % Plt Count 248 (140-400) K/mcL Neutrophils # 12.5 H (1.6-8.9) K/mcL BMP 07/18/16 07/19/16 07/19/16 20:23 01:14 06:51 Sodium 140 142 139 Potassium 4.4 4.0 4.3 Chloride 101 107 104 Carbon Dioxide 24 24 23 BUN 22 H 20 20 Creatinine 1.06 0.64 0.69 Glucose 421 H 152 H 241 H Calcium 9.0 7.9 L 8.1 L Urine 07/18/16 Range/Units 23:15 Urine Color Yellow (Yellow) Urine Clarity Clear (Clear) Urine pH 7.0 (5.0-8.0) pH Units Ur Specific Benedict 1.013 (1.010-1.025) Urine Protein 100 H (Neg-Trace) mg/dL Urine Glucose (UA) 500 H (Normal) mg/dL - ABG Interpretation ABG results: PT/INR, D-dimer PT 10.1 Seconds (9.4-12.1) 07/18/16 20:23 D-Dimer 429 ng/mLFEU (0-500) 07/18/16 20:23 Consult Discharge Plan - Plan Referrals: Domitila Lau MD [Primary Care Provider] - (SENT WEB REQUEST ON 11-19-16 @ [id number])
[2016-07-19] MEDS: Budesonide/Formoterol 160/4.5 MDI IH SCH ×2 (10:34→21:27)
[2016-07-19] MEDS: Vancomycin 1,250 MG in D5% in Water 250 ML IVPB SCH ×2 (10:38→22:20)
[2016-07-19] MEDS: Insulin LISPRO 300 UNITS/3 ML VIAL SQ SCH ×3 (12:08→20:47)
[2016-07-19 18:49] LABS: Adenovirus Not Detected (Not Detect); Bordetella Pertussis Not Detected (Not Detect); Chlamydophila pneumoniae Not Detected (Not Detect); Coronavirus 229E Not Detected (Not Detect); Coronavirus HKU1 Not Detected (Not Detect); Coronavirus NL63 Not Detected (Not Detect); Coronavirus OC43 Not Detected (Not Detect); Human Metapneumovirus Not Detected (Not Detect); Human Rhinovirus/Enterovirus Not Detected (Not Detect); Influenza A Subtype 2009 H1 Not Detected (Not Detect); Influenza A Untypeable Not Detected (Not Detect); Influenza B Not Detected (Not Detect); Mycoplasma pneumoniae Not Detected (Not Detect); Parainfluenza Virus 1 Not Detected (Not Detect); Parainfluenza Virus 2 Not Detected (Not Detect); Parainfluenza Virus 3 Not Detected (Not Detect); Parainfluenza Virus 4 Not Detected (Not Detect); Respiratory Syncytial Virus Not Detected (Not Detect)
[2016-07-19] MEDS: *HR* OxyCODONE/APAP 5/325 TABLET PO PRN (19:23)
[2016-07-19] MEDS: Levofloxacin 750 MG/150 ML 750 MG/150 ML BAG IVPB SCH (20:36)
[2016-07-20] MEDS: methylPREDNISolone 125 MG/2 ML VIAL IVP SCH ×2 (00:05→05:02)
[2016-07-20] MEDS: Ipratropium/Albuterol Neb 3 ML IH SCH ×7 (00:38→23:35)
[2016-07-20] MEDS: *HR* OxyCODONE/APAP 5/325 TABLET PO PRN ×3 (01:19→14:31)
[2016-07-20] MEDS: Aztreonam 2,000 MG in D5% in Water (Mini-Bag+) 100 ML IVPB SCH (05:01)
[2016-07-20] MEDS: *HR* Heparin 5,000 UNIT/ML VIAL SQ SCH ×2 (05:02→17:30)
[2016-07-20] MEDS: Budesonide/Formoterol 160/4.5 MDI IH SCH ×2 (07:51→20:17)
[2016-07-20 08:09] LABS: Basophils # 0.1 K/mcL (0.0-0.2); Basophils % 0.5 %; Hematocrit 38.4 % (35.3-44.9); Hemoglobin 12.4 g/dL (11.5-15.4); Immature Granulocytes % 4.4 % (0-4); Lymphocytes # 0.5 K/mcL (0.6-4.6); Lymphocytes % 3.4 %; Mean Corpuscular HGB Conc 32.3 g/dL (31.6-35.5); Mean Corpuscular Hemoglobin 29.6 pg (28.0-33.3); Mean Corpuscular Volume 91.6 fL (83.0-100.0); Mean Platelet Volume 10.1 fL (9.4-12.4); Monocytes # 0.3 K/mcL (0.0-1.3); Monocytes % 1.9 %; Neutrophils # 13.8 K/mcL (1.6-8.9); Nucleated Red Blood Cells 0.1 /100 WBC (0); Platelet Count 268 K/mcL (140-400); Red Blood Count 4.19 M/mcL (3.82-4.97); Red Cell Distribution Width 16.8 % (11.5-14.5); Segmented Neutrophils % 89.8 %
[2016-07-20 08:20] LABS: BUN/Creatinine Ratio 39 (6-26); Blood Urea Nitrogen 29 mg/dL (7-20); Carbon Dioxide 25 mEq/L (19-29); Chloride 99 mEq/L (98-109); Glucose 352 mg/dL (70-99); Magnesium 1.5 mg/dL (1.6-2.6); Osmolality,Calculated 296 (280-300); Potassium 4.4 mEq/L (3.5-4.5); Sodium 133 mEq/L (136-145); eGFR For African Americans > 60 (> 60); eGFR For Non-African Americans > 60 (> 60)
[2016-07-20] MEDS: MethylPREDNISolone 40 MG/ML VIAL IVP SCH ×3 (08:44→23:29)
[2016-07-20] MEDS: cloNIDine HCl 0.1 MG TABLET PO SCH ×4 (08:44→20:36)
[2016-07-20] MEDS: amLODIPine 5 MG TABLET PO SCH (08:44)
[2016-07-20] MEDS: Gabapentin 300 MG CAPSULE PO SCH ×3 (08:45→20:35)
[2016-07-20] MEDS: Insulin LISPRO 300 UNITS/3 ML VIAL SQ SCH ×5 (08:45→20:36)
[2016-07-20] MEDS: ALPRAZolam 0.5 MG TABLET PO PRN ×2 (08:45→22:43)
[2016-07-20] MEDS: Insulin DETEMIR 100 UNIT/ML X5UNITS SQ SCH ×2 (08:46→20:35)
--- NOTE | 2016-07-20 09:13 | Internal Med Progress Note ---
Date of Encounter: 07/20/16 Time of Encounter: 09:11 - Assessment and plan (1) DKA (diabetic ketoacidosis) Current Visit: Yes Status: Resolved Assessment and plan: Off IV insulin drip, anion gap closed. Qualifiers: Diabetes mellitus type: type 2 Diabetes mellitus complication detail: without coma Qualified Code(s): E13.10 - Other specified diabetes mellitus with ketoacidosis without coma (2) Pneumonia Current Visit: Yes Status: Acute Assessment and plan: Chest XRay shows no clear e/o Pneumonia. Blood cultures remain negative. Respiratory viral infection panel negative. De-escalate antibiotics to IV Levaquin at this time. Continue supportive care and supplemental oxygen as needed. Qualifiers: Pneumonia type: due to unspecified organism Laterality: unspecified laterality Lung location: unspecified part of lung Qualified Code(s): J18.9 - Pneumonia, unspecified organism (3) Sepsis Current Visit: Yes Status: Resolved Assessment and plan: presented with fever, tachycardia, leukocytosis and respiratory distress, all of which are currently improved. She does have slight worsening of WBC count, which is likely due to high-dose IV steroids. 2-D echocardiogram shows hyperdynamic left ventricle with 70% ejection fraction, mild left ventricular diastolic dysfunction, no valvular abnormalities. Qualifiers: Sepsis type: sepsis due to unspecified organism Qualified Code(s): A41.9 - Sepsis, unspecified organism (4) Acute exacerbation of chronic obstructive airways disease Current Visit: Yes Status: Acute Assessment and plan: patient reports compliance to Symbicort and Duonebs despite insurance issues. Taper down IV steroids as tolerated, continue bronchodilators and supplemental O2 as needed; has been on BiPAP overnight; needs to f/up as outpatient for pressure titration and currently is not compliant with CPAP at home. (5) HLD (hyperlipidemia) Current Visit: Yes Status: Chronic Qualifiers: Hyperlipidemia type: other hyperlipidemia Qualified Code(s): E78.4 - Other hyperlipidemia (6) DM (diabetes mellitus), type 2 Current Visit: Yes Status: Chronic Assessment and plan: Medical noncompliance due to no insurance. HbA1C increased to 10.1% from around 7.5% during last admission. Continue Accu-Chek blood glucose monitoring. Continues to have significant steroid-induced hyperglycemia. We will increase basal insulin, continue sliding scale insulin and add nutritional insulin. Blood sugars will likely improve with decreasing doses of steroids. Plan for patient to be discharged on insulin 75/25 for which we have free sample cards. Patient absolutely cannot afford any insulin as an outpatient. diabetic diet; special educator consulted. Qualifiers: Diabetes mellitus complication status: with ketoacidosis Diabetes mellitus complication detail: without coma Diabetes mellitus detention insulin use: with intermediate project manager use Qualified Code(s): E13.10 - Other specified diabetes mellitus with ketoacidosis without coma; Z79.4 - [facility] (current) 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 (7) HTN (hypertension) Current Visit: Yes Status: Chronic Assessment and plan: Uncontrolled hypertension. Continue clonidine, restart Norvasc and add Coreg. Continue to monitor blood pressure closely. use PRN IV Hydralazine; Qualifiers: Hypertension type: essential hypertension Qualified Code(s): I10 - Essential (primary) hypertension - Subjective Interval history: Reports feeling better with improved shortness of breath and heaviness in legs; used BiPAP last night; overwhelmed about her discharge medications and financial situation due to insurance issues; - Constitutional Vitals: Temp Pulse Resp BP Pulse Ox 97.8 F 68 16 175/124 98 07/20/16 07:31 07/20/16 08:00 07/20/16 07:54 07/20/16 07:31 07/20/16 08:00 General appearance: Present: A&O X 3, answers questions appropriately - Respiratory Respiratory exam: Present: CTAB. Absent: accessory muscle use, rales, rhonchi, wheezes - Cardiovascular Cardiovascular exam: Present: RRR, +S1, +S2. Absent: diastolic murmur, gallop, rubs, systolic murmur - GI/Abdominal GI/Abdominal exam: Present: normal bowel sounds, soft, no peritoneal signs. Absent: distended, tenderness - Extremities Exam Extremities exam: Present: full ROM, pedal edema (trace), warm, radial pulses palpable and symetrical. Absent: calf tenderness, cyanotic - Neurological Exam Neurological exam: Present: CN II-XII intact, oriented X3, no focal deficits. Absent: pronater drift, facial droop, speech deficit - Skin Skin exam: Present: dry, intact Internal Medicine: Result - Labs CBC & Chem 7: 07/20/16 07:59 07/20/16 07:59 Labs: Short CBC 07/20/16 Range/Units 07:59 WBC 15.4 H (4.3-11.1) K/mcL Hgb 12.4 (11.5-15.4) g/dL Hct 38.4 (35.3-44.9) % Plt Count 268 (140-400) K/mcL Neutrophils # 13.8 H (1.6-8.9) K/mcL BMP 07/20/16 07:59 Sodium 133 L Potassium 4.4 Chloride 99 Carbon Dioxide 25 BUN 29 H Creatinine 0.75 Glucose 352 H Calcium 9.0 - ABG Interpretation ABG results: PT/INR, D-dimer PT 10.1 Seconds (9.4-12.1) 07/18/16 20:23 D-Dimer 429 ng/mLFEU (0-500) 07/18/16 20:23 Consult Discharge Plan - Plan Referrals: Domitila Lau MD [Primary Care Provider] - (SENT WEB REQUEST ON 11-19-16 @ [id number])
[2016-07-20] MEDS ORDERED: Magnesium Sulfate 2 GM in D5% in Water 100 ML IVPB ONE (09:15)
[2016-07-20] MEDS: *HR* Promethazine 25 MG/ML VIAL IVP PRN (17:30)
--- NOTE | 2016-07-20 17:54 | Electrocardiograph Report ---
[address] [address] Test Date: 2016-07-18 Pat Name: Nora Ren Department: 102 Room: 2N15 Gender: F Inspector Eyeglass: : 1960 Requested By: Joaquin Perez Order Number: [id number] Reading MD: Parul Peterson Measurements Intervals [place] Rate: 123 P: 51 ID: [id number] QRS: 47 QRSD: 89 T: 40 QT: 280 QTc: 353 Interpretive Statements SINUS TACHYCARDIA ABNORMAL RHYTHM ECG Electronically Signed On 07-20-2016 17:52:56 EDT by Parul Peterson
[2016-07-20] MEDS: Levofloxacin 750 MG/150 ML 750 MG/150 ML BAG IVPB SCH (20:35)
[2016-07-21] MEDS: Ipratropium/Albuterol Neb 3 ML IH SCH ×3 (03:58→11:11)
[2016-07-21] MEDS: *HR* OxyCODONE/APAP 5/325 TABLET PO PRN ×2 (04:09→10:23)
[2016-07-21 05:16] LABS: Basophils # 0.1 K/mcL (0.0-0.2); Basophils % 0.4 %; Hematocrit 38.1 % (35.3-44.9); Hemoglobin 12.5 g/dL (11.5-15.4); Immature Granulocytes % 4.8 % (0-4); Lymphocytes # 0.5 K/mcL (0.6-4.6); Lymphocytes % 3.4 %; Mean Corpuscular HGB Conc 32.8 g/dL (31.6-35.5); Mean Corpuscular Volume 91.4 fL (83.0-100.0); Mean Platelet Volume 10.6 fL (9.4-12.4); Monocytes # 0.4 K/mcL (0.0-1.3); Nucleated Red Blood Cells 0.2 /100 WBC (0); Platelet Count 250 K/mcL (140-400); Red Blood Count 4.17 M/mcL (3.82-4.97); Red Cell Distribution Width 17.4 % (11.5-14.5); Segmented Neutrophils % 88.4 %
[2016-07-21] MEDS: *HR* Heparin 5,000 UNIT/ML VIAL SQ SCH (06:22)
[2016-07-21] MEDS: Budesonide/Formoterol 160/4.5 MDI IH SCH (08:07)
[2016-07-21] MEDS: Gabapentin 300 MG CAPSULE PO SCH (08:29)
[2016-07-21] MEDS: cloNIDine HCl 0.1 MG TABLET PO SCH ×2 (08:29→13:09)
[2016-07-21] MEDS: amLODIPine 5 MG TABLET PO SCH (08:30)
[2016-07-21] MEDS: MethylPREDNISolone 40 MG/ML VIAL IVP SCH (08:30)
[2016-07-21] MEDS: Insulin LISPRO 300 UNITS/3 ML VIAL SQ SCH ×4 (08:30→13:01)
[2016-07-21] MEDS: *HR* Promethazine 25 MG/ML VIAL IVP PRN (08:34)
[2016-07-21] MEDS: Insulin DETEMIR 100 UNIT/ML X5UNITS SQ SCH (08:34)
--- NOTE | 2016-07-21 09:50 | Discharge Summary ---
Date of Encounter: 07/21/16 Time of Encounter: 09:41 - Discharge Diagnosis (1) DKA (diabetic ketoacidosis) Priority: Primary Status: Resolved Qualifiers: Diabetes mellitus type: type 2 Diabetes mellitus complication detail: without coma Qualified Code(s): E13.10 - Other specified diabetes mellitus with ketoacidosis without coma (2) Pneumonia Priority: Primary Status: Acute Qualifiers: Pneumonia type: due to unspecified organism Laterality: unspecified laterality Lung location: unspecified part of lung Qualified Code(s): J18.9 - Pneumonia, unspecified organism (3) Sepsis Priority: Primary Status: Resolved Qualifiers: Sepsis type: sepsis due to unspecified organism Qualified Code(s): A41.9 - Sepsis, unspecified organism (4) Acute exacerbation of chronic obstructive airways disease Priority: Primary Status: Acute (5) HLD (hyperlipidemia) Priority: Secondary Status: Chronic Qualifiers: Hyperlipidemia type: other hyperlipidemia Qualified Code(s): E78.4 - Other hyperlipidemia (6) DM (diabetes mellitus), type 2 Priority: Secondary Status: Chronic Qualifiers: Diabetes mellitus complication status: with ketoacidosis Diabetes mellitus complication detail: without coma 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 Qualified Code(s): E13.10 - Other specified diabetes mellitus with ketoacidosis without coma; Z79.4 - nursing home (current) 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 (7) HTN (hypertension) Priority: Secondary Status: Chronic Qualifiers: Hypertension type: essential hypertension Qualified Code(s): I10 - Essential (primary) hypertension (8) Anxiety Priority: Secondary Status: Chronic - Discharge Medications Prescriptions: ALPRAZolam [Xanax 0.5 MG Tablet] 0.5 mg PO TID PRN #20 tablet PRN Reason: Anxiety amLODIPine [Norvasc] 10 mg PO DAILY #30 tablet Insulin Lispro Protamin/Lispro [Humalog Mix 75-25 Vial] 100 unit SQ BID 30 Days levoFLOXacin [Levaquin] 500 mg PO DAILY #3 tablet Losartan/Hydrochlorothiazide [Hyzaar 100-25 Tablet] 1 each PO DAILY #30 tablet predniSONE [PredniSONE] 60 mg PO DAILY 15 Days Syrge-Ndl,Ins 0.3 ml Half Quirino [Insulin Syringe] 1 each MC BID #100 disp.syrin Home Medications: Amlodipine Besylate [Norvasc] 10 mg PO QAM 09/25/14 [History] Budesonide/Formoterol 160/4.5 [Symbicort] 2 puff IH BID 09/25/14 [History] Metformin [Glucophage] 1,000 mg PO BID 02/10/15 [History] Pantoprazole Sodium [Protonix] 40 mg PO DAILY 02/10/15 [History] Glimepiride [Amaryl] 4 mg PO DAILY 05/03/15 [History] Losartan/Hydrochlorothiazide [Losartan-Hctz 100-25 mg Tab] 1 tab PO DAILY [History] Cyclobenzaprine HCl 10 mg PO TID PRN 02/20/16 [History] Ipratropium/Albuterol Neb [Duoneb] 3 ml IH Q6HR PRN #90 vial.neb 05/02/16 [Rx] Atorvastatin [Lipitor] 40 mg PO HS 05/16/16 [History] cloNIDine HCl [Clonidine HCl] 0.3 mg PO QID 05/16/16 [History] Aclidinium [place] [Tudorza Pressair] 1 puff IH BID 07/19/16 [History] Aspirin 81 mg PO DAILY 07/19/16 [History] Escitalopram Oxalate 5 mg PO DAILY 07/19/16 [History] Oxycodone HCl [Oxaydo] 5 mg PO BID PRN 07/19/16 [History] Oxygen 3 l .ROUTE AD 07/19/16 [History] Ranitidine HCl [Zantac] 150 mg PO BID 07/19/16 [History] ALPRAZolam [Xanax 0.5 MG Tablet] 0.5 mg PO TID PRN #20 tablet 07/21/16 [Rx] Insulin Lispro Protamin/Lispro [Humalog Mix 75-25 Vial] 100 unit SQ BID 30 Days 07/21/16 [Rx] Losartan/Hydrochlorothiazide [Hyzaar 100-25 Tablet] 1 each PO DAILY #30 tablet 07/21/16 [Rx] Syrge-Ndl,Ins 0.3 ml Half Quirino [Insulin Syringe] 1 each MC BID #100 disp.syrin 07/21/16 [Rx] amLODIPine [Norvasc] 10 mg PO DAILY #30 tablet 07/21/16 [Rx] levoFLOXacin [Levaquin] 500 mg PO DAILY #3 tablet 07/21/16 [Rx] predniSONE [PredniSONE] 60 mg PO DAILY 15 Days 07/21/16 [Rx] Allergies/Adverse Reactions: Allergies NSAIDS (Non-Steroidal Anti-Inflamma Allergy (Unknown, Verified 06/28/16 11:47) See Comments Listed on ECW under allergies- Unknown Reaction Penicillins Allergy (Unknown, Verified 06/28/16 11:47) Hives lisinopril Adverse Reaction (Verified 06/28/16 11:47) Cough tramadol Adverse Reaction (Verified 06/28/16 11:47) Nausea Procedures/tests Complete & Pending: Procedures Performed prior 72 hours Category Date Time Status EV echocardiogram Routine Y 07/19/16 20:17 Completed Date of admission: 07/18/16 20:15 Primary care physician: Domitila Lau MD Consults: 07/18/16 20:16 Consult to Speech Therapy [CONS] Routine Comment: Evaluate, develop and implement POC Reason for Consult: Concern for aspiration Call Completed: Yes 07/20/16 07:40 Consult to Signs And Displays Salesperson [CONS] Routine Comment: Reason for Consult: Patient will be starting insulin and levemir on discharge , this is all new to the patient Consult to Hole Filler [CONS] Routine Reason for SW Consult: Patient may need assistance on medication coverage, thinking on d/c patient is going to be on insulin and levemir Discharging clinician: Danelle Marsh Anticipated date of discharge: 07/21/16 - Patient Status Disposition: Home, Self-Care Condition: Fair Functional capacity at discharge: independent ambulation Overall status at discharge: patient is progressing back to baseline - Discharge Instructions Instructions: Alprazolam (By mouth), Prednisone (By mouth), Levofloxacin (By mouth), Losartan/Hydrochlorothiazide (By mouth), Insulin Lispro Protamine/ Insulin Lispro (Injection), Diabetes Mellitus Type 2 in Adults (DC), Giving an Insulin Injection (DC) Follow Up With: Zainab Nelson MD [Partnered Physician] - 08/10/16 11:15 am Domitila Lau MD [Primary Care Provider] - 07/27/16 12:00 pm () Forms: ED Satisfaction Letter Additional Instructions: F/up with Pulmonology as scheduled for BiPAP titration - Diet and Activity Activity: resume usual activities as tolerated, wear oxygen at all times, other (use BiPAP at night) Diet: diabetic diet, low fat, low cholesterol, low salt diet Hospital course: Ms. Ren is a 56 year old female with h/o- DM, COPD, insurance issues, who was admitted with cough, dyspnea and abdominal pain. She was noted to be in diabetic ketoacidosis and admitted to stepdown unit, started on IV insulin infusion protocol and her blood sugars gradually improved, anionic gap was closed and she was started on basal bolus subcutaneous insulin regimen along with diabetic diet. She was noted to be in acute exacerbation of COPD and was started on IV steroids , empiric IV antibiotics, scheduled bronchodilators, inhaled corticosteroids and supplemental oxygen. She also received nocturnal BiPAP support. Patient's respiratory status was much improved on this regimen. However, she continued to have steroid-induced hyperglycemia during this hospitalization and her insulin has been adjusted accordingly. Her blood pressure was noted to be uncontrolled and she restarted on Norvasc, losartan/hydrochlorothiazide which are on her home medication regimen but she is noncompliant. Patient has no medical insurance and is noncompliant with most of her home medications including her diabetic medications. Hemoglobin A1c was noted to increase from 7-10.1% this admission. She is being discharged on insulin 75/25 and is provided with free 30 day supply card after which she will follow up with a local clinic in [facility], which provides free short and long-acting insulins to patients without insurance. care services manager was on board and patient received appropriate resources to obtain most of her medications. She is medically stable for discharge with outpatient follow-up. - Time Spent with Patient Total time spent providing and/or coordinating discharge services: Greater than 30 minutes (55 min) - Constitutional Vitals: Temp Pulse Resp BP Pulse Ox 97.4 F L 66 16 164/92 100 07/21/16 08:14 07/21/16 08:14 07/21/16 08:14 07/21/16 08:14 07/21/16 08:14 General appearance: Present: A&O X 3, answers questions appropriately - Respiratory Respiratory exam: Present: decreased breath sounds (decreased air entry B/L), CTAB. Absent: accessory muscle use, rales, rhonchi, wheezes - Cardiovascular Cardiovascular exam: Present: RRR, +S1, +S2. Absent: diastolic murmur, gallop, rubs, systolic murmur
[2016-07-21] MEDS: ALPRAZolam 0.5 MG TABLET PO PRN (10:23)
[2016-07-21 12:03] VITALS: BP 171/97
== END 2016-07-21 13:36 | disposition home or self-care (01) | DRG 871 ==
LOC: 2NNU 17:26 → EMEROO 17:26 → SUATTDRO 20:15 → 2NNU 20:27
PROVIDERS: ADMIT Internal Medicine; ATTEND Internal Medicine

== ENCOUNTER 2016-07-30 19:07 | Observation (INO) ==
[2016-07-30] MEDS ORDERED: 0.9 % Sodium Chloride 1,000 ML IVC ONE ×3 (19:40→21:39)
[2016-07-30 19:49] LABS: Basophils # 0.1 K/mcL (0.0-0.2); Basophils % 0.7 %; Eosinophils % 0.1 %; Hematocrit 40.5 % (35.3-44.9); Immature Granulocytes % 4.5 % (0-4); Lymphocytes # 2.4 K/mcL (0.6-4.6); Lymphocytes % 14.5 %; Mean Corpuscular HGB Conc 32.1 g/dL (31.6-35.5); Mean Corpuscular Hemoglobin 30.6 pg (28.0-33.3); Mean Corpuscular Volume 95.3 fL (83.0-100.0); Mean Platelet Volume 10.4 fL (9.4-12.4); Monocytes # 0.9 K/mcL (0.0-1.3); Monocytes % 5.2 %; Neutrophils # 12.4 K/mcL (1.6-8.9); Nucleated Red Blood Cells 0.4 /100 WBC (0); Platelet Count 285 K/mcL (140-400); Red Blood Count 4.25 M/mcL (3.82-4.97); Red Cell Distribution Width 18.4 % (11.5-14.5)
[2016-07-30 19:53] LABS: VBG HCO3 25.8 mEq/L (21-27); VBG PH 7.44 pH Units (7.32-7.42)
--- NOTE | 2016-07-30 19:53 | Emergency Department Note ---
Disposition Clinical Impression: Hypoxia, COPD with acute exacerbation, Hypertension, DM type 2, uncontrolled, with neuropathy, Sinus tachycardia, Acute hyperglycemia Disposition: Admitted As Inpatient General Adult HPI - General Chief complaint: ED Recheck/Abnormal Lab/Rx Stated complaint: "high blood sugar" Time Seen by Provider: 07/30/16 19:30 Source: patient, family Mode of arrival: wheelchair Limitations: no limitations Nursing Notes Reviewed: Yes Vital Signs Reviewed: Yes - History of Present Illness HPI Narrative: Ms. Ren, a 56yo female, presents from home by POV with concerns of hyperglycemia. Patient was in the 100s after [employer] dinner this evening ( burger, no fries, no shake). She self administered 10 units of Humalog and is now 403 on intake. Before dinner, her previous glucose check was this AM prior to breakfast - low 400's. She also notes intermittent chest pains. She did take her daily aspirin this morning. Patient has associated nausea, dyspnea, headache. PMH: Insulin-dependent type 2 diabetes, HTN, HLD, COPD - on 3L NC continuous at home, Insulin regimen: Sinus scale insulin - Humalog 2 units between 150 200, 4 units between 200 250, 6 units between 250 and 300, 8 units between 300 350, 10 units between 3 50-400. Currently 22 units Lantus daily at bedtime ROS: POS: hyperglycemia, chest pain, dyspnea, nausea, headache NEG: diaphoresis, back pain, new abdominal pain, weakness, numbness, confusion, changes in vision. Pain Scale: 0 - Related Data Home Medications Medication Instructions Recorded Confirmed Amlodipine Besylate [Norvasc] 10 mg PO QAM 09/25/14 07/31/16 Budesonide/Formoterol 160/4.5 2 puff IH BID 09/25/14 07/31/16 [Symbicort] Metformin [Glucophage] 1,000 mg PO BID 02/10/15 07/31/16 Pantoprazole Sodium [Protonix] 40 mg PO DAILY 02/10/15 07/31/16 Glimepiride [Amaryl] 4 mg PO DAILY 05/03/15 07/31/16 Losartan/Hydrochlorothiazide 1 tab PO DAILY 05/03/15 07/31/16 [Losartan-Hctz 100-25 mg Tab] Cyclobenzaprine HCl 10 mg PO TID PRN 02/20/16 07/31/16 Atorvastatin [Lipitor] 40 mg PO HS 05/16/16 07/31/16 cloNIDine HCl [Clonidine HCl] 0.3 mg PO QID 05/16/16 07/31/16 Aclidinium [place] [Tudorza 1 puff IH BID 07/19/16 07/31/16 Pressair] Aspirin 81 mg PO DAILY 07/19/16 07/31/16 Escitalopram Oxalate 5 mg PO DAILY 07/19/16 07/31/16 Oxycodone HCl [Oxaydo] 5 mg PO BID PRN 07/19/16 07/31/16 Oxygen 3 l .ROUTE AD 07/19/16 07/31/16 Ranitidine HCl [Zantac] 150 mg PO BID 07/19/16 07/31/16 Previous Rx's Medication Instructions Recorded Ipratropium/Albuterol Neb [Duoneb] 3 ml IH Q6HR PRN #90 vial.neb 05/02/16 ALPRAZolam [Xanax 0.5 MG Tablet] 0.5 mg PO TID PRN #20 tablet 07/21/16 Insulin Lispro Protamin/Lispro 100 unit SQ BID 30 Days 07/21/16 [Humalog Mix 75-25 Vial] Losartan/Hydrochlorothiazide 1 each PO DAILY #30 tablet 07/21/16 [Hyzaar 100-25 Tablet] Syrge-Ndl,Ins 0.3 ml Half Quirino 1 each MC BID #100 disp.syrin 07/21/16 [Insulin Syringe] amLODIPine [Norvasc] 10 mg PO DAILY #30 tablet 07/21/16 levoFLOXacin [Levaquin] 500 mg PO DAILY #3 tablet 07/21/16 predniSONE [PredniSONE] 60 mg PO DAILY 15 Days 07/21/16 Allergies Allergy/AdvReac Type Severity Reaction Status Date / Time NSAIDS (Non-Steroidal Allergy Unknown See Verified 06/28/16 11:47 Anti-Inflamma Comments Penicillins Allergy Unknown Hives Verified 06/28/16 11:47 lisinopril AdvReac Cough Verified 06/28/16 11:47 tramadol AdvReac Nausea Verified 06/28/16 11:47 All systems ED: reviewed and negative except as stated. 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 HEENT: No facial asymmetry. Head is normocephalic and atraumatic. PERRLA. Oral mucosa moist. Trachea midline. Cardiovascular: Heart regular rate and rhythm without clicks, rubs, gallops, or murmurs. No JVD. PMI nondisplaced. 1+ pitting bilateral edema. Bilateral posterior tibial pulse palpable. Respiratory: Symmetric chest rise with poor respiratory effort. Prolonged eye surgery face. Bilateral breath sounds have scant wheezing without crackles or rhonchi. Abdomen: Obese. Bowel sounds present normoactive x-4 quadrants. Abdomen is soft, nondistended, and nontender. MSK: Spontaneously moving all extremities. Psych: Patient's affect is appropriate for situation. - General Limitations: no limitations General appearance: alert, in no apparent distress Course Course Narrative: Initial concern is for DKA. Also concern for potential infectious source which could have exacerbated her into DKA. She also reports chest pain with associated nausea and dyspnea. No nausea and dyspnea could be caused by DKA, we will also rule out cardiac etiology. Patient does have a history of COPD; exacerbation is a possibility. Chest x-ray unremarkable. Chest X-Ray 07/30/16 19:18 IMPRESSION: Stable exam. D/ / Jordin Sandhu MD / Jordin Sandhu MD Interpreting Provider: Jordin Sandhu MD Patient does have leukocytosis. She is mildly alkalotic with small increase in serum ketones. She is not in DKA. Clinical concern remains that she remains tachycardic, tachypneic, mildly hypoxic. No evidence of pneumonia on physical exam, chest x-ray, or CTA. No evident UTI on urinalysis. Concern remains for possible PE; CTA chest was negative. Recent symptoms were controlled however she remained tachycardic, tachypneic, and hypertensive. Repeat BMP showed blood glucose into the 200s. Spoke with the patient regarding admission for her hypoxia, acute exacerbation of COPD, sinus tachycardia, hyperglycemia; she agrees. Spoke with the admitting hospitalist, he agrees to admission, he has no additional questions or concerns at this time. Vital Signs Temperature 98.4 F 07/30/16 19:08 Pulse Rate 136 07/30/16 19:08 Respiratory Rate 22 07/30/16 19:08 Blood Pressure 174/126 07/30/16 19:08 O2 Sat by Pulse Oximetry 90 07/30/16 19:08 Temperature 98.4 F 07/30/16 19:08 Pulse Rate 144 07/30/16 23:11 Respiratory Rate 18 07/30/16 23:11 Blood Pressure 171/97 07/30/16 23:11 O2 Sat by Pulse Oximetry 97 07/30/16 23:11 Oxygen Delivery Oxygen Delivery Room Air Medical Decision Making - Medical Records Medical records reviewed: Yes I reviewed the patient's medical records. - Lab Data Lab results reviewed: Yes I reviewed the patient's lab results. Result diagrams: 07/30/16 19:28 07/30/16 21:42 Lab Results 07/30/16 07/30/16 07/30/16 Range/Units 19:15 19:28 19:28 WBC 16.5 H (4.3-11.1) K/mcL RBC 4.25 (3.82-4.97) M/mcL Hgb 13.0 (11.5-15.4) g/dL Hct 40.5 (35.3-44.9) % MCV 95.3 (83.0-100.0) fL MCH 30.6 (28.0-33.3) pg MCHC 32.1 (31.6-35.5) g/dL RDW 18.4 H (11.5-14.5) % Plt Count 285 (140-400) K/mcL MPV 10.4 (9.4-12.4) fL Immature Gran % 4.5 H (0-4) % Seg Neutrophils % 75.0 % Lymphocytes % 14.5 % Monocytes % 5.2 % Eosinophils % 0.1 % Basophils % 0.7 % Neutrophils # 12.4 H (1.6-8.9) K/mcL Lymphocytes # 2.4 (0.6-4.6) K/mcL Monocytes # 0.9 (0.0-1.3) K/mcL Eosinophils # 0.0 (0.0-0.6) K/mcL Basophils # 0.1 (0.0-0.2) K/mcL Nucleated RBCs/100 WBC 0.4 H (0) /100 WBC VBG pH (7.32-7.42) pH Units VBG pCO2 (41-51) mmHg VBG pO2 (25-40) mmHg VBG HCO3 (21-27) mEq/L Sodium 143 (136-145) mEq/L Potassium 3.5 (3.5-4.5) mEq/L Chloride 107 (98-109) mEq/L Carbon Dioxide 22 (19-29) mEq/L BUN 21 H (7-20) mg/dL Creatinine 0.87 (0.57-1.11) mg/dL Est GFR ( Amer) > 60 (> 60) Est GFR (Non-Af Amer) > 60 (> 60) BUN/Creatinine Ratio 24 (6-26) Glucose 419 H (70-99) mg/dL POC Glucose 403 H* (58-89) Calculated Osmolality 317 H (280-300) Calcium 9.4 (8.6-10.8) mg/dL Troponin I (0-0.03) ng/mL Beta-Hydroxybutyric Acd (0.02-0.27) mmol/L Urine Color (Yellow) Urine Clarity (Clear) Urine pH (5.0-8.0) pH Units Ur Specific [place] (1.010-1.025) Urine Protein (Neg-Trace) mg/dL Urine Glucose (UA) (Normal) mg/dL Urine Ketones (Negative) mg/dL Urine Blood (Negative) Urine Nitrite (Negative) Urine Bilirubin (Negative) Urine Urobilinogen (Normal) mg/dL Ur Leukocyte Esterase (Negative) Urine Microscopic RBC (0-3) per hpf Urine Microscopic WBC (0-3) per hpf Ur Squamous Epith Cells (None-Few) per lpf Urine Bacteria (None-Few) per hpf Hyaline Casts (None-Few) per lpf Ur Culture Indicated? (NO) 07/30/16 07/30/16 07/30/16 Range/Units 19:28 19:28 19:28 WBC (4.3-11.1) K/mcL RBC (3.82-4.97) M/mcL Hgb (11.5-15.4) g/dL Hct (35.3-44.9) % MCV (83.0-100.0) fL MCH (28.0-33.3) pg MCHC (31.6-35.5) g/dL RDW (11.5-14.5) % Plt Count (140-400) K/mcL MPV (9.4-12.4) fL Immature Gran % (0-4) % Seg Neutrophils % % Lymphocytes % % Monocytes % % Eosinophils % % Basophils % % Neutrophils # (1.6-8.9) K/mcL Lymphocytes # (0.6-4.6) K/mcL Monocytes # (0.0-1.3) K/mcL Eosinophils # (0.0-0.6) K/mcL Basophils # (0.0-0.2) K/mcL Nucleated RBCs/100 WBC (0) /100 WBC VBG pH 7.44 H (7.32-7.42) pH Units VBG pCO2 38 L (41-51) mmHg VBG pO2 157 H (25-40) mmHg VBG HCO3 25.8 (21-27) mEq/L Sodium (136-145) mEq/L Potassium (3.5-4.5) mEq/L Chloride (98-109) mEq/L Carbon Dioxide (19-29) mEq/L BUN (7-20) mg/dL Creatinine (0.57-1.11) mg/dL Est GFR ( Amer) (> 60) Est GFR (Non-Af Amer) (> 60) BUN/Creatinine Ratio (6-26) Glucose (70-99) mg/dL POC Glucose (58-89) Calculated Osmolality (280-300) Calcium (8.6-10.8) mg/dL Troponin I 0.01 (0-0.03) ng/mL Beta-Hydroxybutyric Acd 0.29 H (0.02-0.27) mmol/L Urine Color (Yellow) Urine Clarity (Clear) Urine pH (5.0-8.0) pH Units Ur Specific [place] (1.010-1.025) Urine Protein (Neg-Trace) mg/dL Urine Glucose (UA) (Normal) mg/dL Urine Ketones (Negative) mg/dL Urine Blood (Negative) Urine Nitrite (Negative) Urine Bilirubin (Negative) Urine Urobilinogen (Normal) mg/dL Ur Leukocyte Esterase (Negative) Urine Microscopic RBC (0-3) per hpf Urine Microscopic WBC (0-3) per hpf Ur Squamous Epith Cells (None-Few) per lpf Urine Bacteria (None-Few) per hpf Hyaline Casts (None-Few) per lpf Ur Culture Indicated? (NO) 07/30/16 07/30/16 Range/Units 21:42 23:40 WBC (4.3-11.1) K/mcL RBC (3.82-4.97) M/mcL Hgb (11.5-15.4) g/dL Hct (35.3-44.9) % MCV (83.0-100.0) fL MCH (28.0-33.3) pg MCHC (31.6-35.5) g/dL RDW (11.5-14.5) % Plt Count (140-400) K/mcL MPV (9.4-12.4) fL Immature Gran % (0-4) % Seg Neutrophils % % Lymphocytes % % Monocytes % % Eosinophils % % Basophils % % Neutrophils # (1.6-8.9) K/mcL Lymphocytes # (0.6-4.6) K/mcL Monocytes # (0.0-1.3) K/mcL Eosinophils # (0.0-0.6) K/mcL Basophils # (0.0-0.2) K/mcL Nucleated RBCs/100 WBC (0) /100 WBC VBG pH (7.32-7.42) pH Units VBG pCO2 (41-51) mmHg VBG pO2 (25-40) mmHg VBG HCO3 (21-27) mEq/L Sodium 145 (136-145) mEq/L Potassium 3.9 (3.5-4.5) mEq/L Chloride 110 H (98-109) mEq/L Carbon Dioxide 24 (19-29) mEq/L BUN 21 H (7-20) mg/dL Creatinine 0.78 (0.57-1.11) mg/dL Est GFR ( Amer) > 60 (> 60) Est GFR (Non-Af Amer) > 60 (> 60) BUN/Creatinine Ratio 27 H (6-26) Glucose 258 H (70-99) mg/dL POC Glucose (58-89) Calculated Osmolality 312 H (280-300) Calcium 9.0 (8.6-10.8) mg/dL Troponin I (0-0.03) ng/mL Beta-Hydroxybutyric Acd (0.02-0.27) mmol/L Urine Color Yellow (Yellow) Urine Clarity Cloudy A (Clear) Urine pH 5.0 (5.0-8.0) pH Units Ur Specific [place] 1.029 H (1.010-1.025) Urine Protein >=300 H (Neg-Trace) mg/dL Urine Glucose (UA) 500 H (Normal) mg/dL Urine Ketones Negative (Negative) mg/dL Urine Blood Negative (Negative) Urine Nitrite Negative (Negative) Urine Bilirubin Negative (Negative) Urine Urobilinogen Normal (Normal) mg/dL Ur Leukocyte Esterase Negative (Negative) Urine Microscopic RBC 0-3 (0-3) per hpf Urine Microscopic WBC 0-3 (0-3) per hpf Ur Squamous Epith Cells Many H (None-Few) per lpf Urine Bacteria None Seen (None-Few) per hpf Hyaline Casts Few (None-Few) per lpf Ur Culture Indicated? NO (NO) - Radiology Data Radiology results reviewed: Yes I reviewed the patient's radiology results. - EKG Data EKG #1 EKG results narrative: Patient's EKG was interpreted by myself without benefit from a cardiology interpretation showing a sinus tachycardia at 140 bpm, poor R-wave progression across the anterior leads this was compared to an old EKG on July 18 of this year which shows no significant change. Attestation Statement - Attestation Attestation: I personally interviewed and examined this patient and my medical decision- making was reviewed with the ED Resident Physician, Dr. Clement I agree with the documented findings, disposition and treatment plan as described except to the extent set forth below. Patient is a 56-year-old white female history of medication noncompliance who presents to the emergency department with reports of elevated blood sugar today. Patient was just discharged from the hospital with DKA, pneumonia, sepsis, elevated blood pressure history last week. Patient states she is finished her antibiotics as instructed, but despite this has been having elevated blood sugars. Patient reports that she is taking her medications as directed. Patient arrives extremely tachycardic, with a sinus tachycardia and elevated blood pressure. Patient also states she has been taking her blood pressure medicines as directed. I agree with physical exam findings as documented. Patient was placed on child monitor continuous pulse ox, supplemental oxygen at home O2 levels and was started on IV fluid resuscitation. Elevated blood sugar initially here was 403 reported at home in the 800s by the patient. Patient did give herself 10 units of subcutaneous insulin prior to arrival. Patient with wheezing on auscultation and no signs of respiratory distress on arrival. Room air sats were 89-90%. Patient's potable chest x-ray was negative for pneumonia. Urinalysis was negative for infection. Patient was given 2 L of 0.9 normal saline and then her basic metabolic panel was repeated which did show improvement and at no time any acidosis. Patient was persistently tachycardic despite fluid resuscitation. No evidence of infection was determined. Patient underwent CT imaging to rule out possibility of pulmonary embolus as the cause of her tachycardia. This was negative for PE or infection. At this time patient is resting more comfortably, blood pressure is much improved after a single dose of IV BP medicine. Patient remains with a sinus tachycardia with unclear etiology. Patient's blood sugar has improved and is now on the 200s without acidosis. We will admit the patient for ongoing tachycardia and acute exacerbation COPD. Discussed with the hospitalist who accepted the patient for admission for ongoing management.
[2016-07-30] MEDS ORDERED: Nitroglycerin 0.4 MG TAB.SUBL SL PRN (19:59)
[2016-07-30] MEDS ORDERED: Ondansetron 4 MG/2 ML VIAL IVP ONE ×2 (19:59→22:09)
[2016-07-30 20:02] LABS: BUN/Creatinine Ratio 24 (6-26); Blood Urea Nitrogen 21 mg/dL (7-20); Calcium 9.4 mg/dL (8.6-10.8); Carbon Dioxide 22 mEq/L (19-29); Chloride 107 mEq/L (98-109); Glucose 419 mg/dL (70-99); Osmolality,Calculated 317 (280-300); Potassium 3.5 mEq/L (3.5-4.5); Sodium 143 mEq/L (136-145); eGFR For African Americans > 60 (> 60); eGFR For Non-African Americans > 60 (> 60)
[2016-07-30 22:09] LABS: BUN/Creatinine Ratio 27 (6-26); Blood Urea Nitrogen 21 mg/dL (7-20); Carbon Dioxide 24 mEq/L (19-29); Chloride 110 mEq/L (98-109); Glucose 258 mg/dL (70-99); Osmolality,Calculated 312 (280-300); Sodium 145 mEq/L (136-145); eGFR For African Americans > 60 (> 60); eGFR For Non-African Americans > 60 (> 60)
[2016-07-30] MEDS ORDERED: *HR* Morphine 2 MG/ML SYRINGE IVP ONE (22:09)
[2016-07-30 22:10] LABS: Potassium 3.9 mEq/L (3.5-4.5)
[2016-07-30 23:47] LABS: Bilirubin,Urine Negative (Negative); Blood,Urine Negative (Negative); Clarity,Urine Cloudy (Clear); Color,Urine Yellow (Yellow); Glucose,Urine (UA) 500 mg/dL (Normal); Ketones,Urine Negative (Negative); Leukocyte Esterase,Urine Negative (Negative); Nitrite,Urine Negative (Negative); Protein,Urine >=300 mg/dL (Neg-Trace); Specific Gravity,Urine 1.029 (1.010-1.025); Urobilinogen,Urine Normal (Normal)
[2016-07-30 23:49] LABS: Bacteria,Urine None Seen per hpf (None-Few); Hyaline Casts,Urine Few per lpf (None-Few); RBC,Urine 0-3 per hpf (0-3); Squamous Epithelial Cell,Urine Many per lpf (None-Few); WBC,Urine 0-3 per hpf (0-3)
[2016-07-31] MEDS ORDERED: Dexamethasone 4 MG/ML VIAL IVP ONE (00:28)
[2016-07-31] MEDS ORDERED: Ondansetron 4 MG/2 ML VIAL IVP PRN ×2 (01:54→02:49)
[2016-07-31] MEDS ORDERED: Naloxone 0.4 MG/ML INJ IVP PRN (01:54)
[2016-07-31] MEDS ORDERED: Acetaminophen 325 MG TABLET PO PRN (01:54)
[2016-07-31] MEDS ORDERED: D5% in Water 1,000 ML IVC PRN (01:56)
[2016-07-31] MEDS ORDERED: *HR* Dextrose 50 % in Water (Syg) 50 ML SYRINGE IVP PRN (01:56)
[2016-07-31] MEDS ORDERED: Dextrose Gel 15 GM PO PRN ×2 (01:56)
[2016-07-31] MEDS ORDERED: ALPRAZolam 0.5 MG TABLET PO PRN (01:57)
[2016-07-31] MEDS ORDERED: NON-FORMULARY MEDICATION 1 EACH EACH (Oxygen [Oxygen] 3 L) SCH (02:00)
[2016-07-31] MEDS ORDERED: NON-FORMULARY MEDICATION 1 EACH EACH (Insulin Lispro Protamin/Lispro [Humalog Mix 75-25 Vi SQ SCH (02:00)
[2016-07-31] MEDS ORDERED: Insulin DETEMIR 100 UNIT/ML X5UNITS SQ ONE (02:45)
[2016-07-31] MEDS ORDERED: Acetaminophen/Butalbital/CaffeineTABLET PO PRN (02:50)
--- NOTE | 2016-07-31 02:54 | Internal Med History&Physical ---
Date of Encounter: 07/31/16 Time of Encounter: 02:20 Assessment and Plan (1) Diabetes mellitus Current visit: No Status: Acute Patient has hyperglycemia due to inadequate doses of insulin in combination with being on steroid taper. She will be given 40 units of long-acting insulin currently. She will be placed on 40 units of long-acting insulin at bedtime. Diabetic teaching. Patient can be discharged on Lantus as the patient gets free supplies of Lantus every month. Sliding scale insulin at high-dose. Diabetic diet. Metformin. Discontinue glimepiride as the patient is currently on insulin. Qualifiers: Diabetes mellitus type: type 2 Diabetes mellitus complication status: with hyperglycemia Diabetes mellitus detention insulin use: with scallop binder use Qualified Code(s): E11.65 - Type 2 diabetes mellitus with hyperglycemia; Z79.4 - USP (current) 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 (2) COPD (chronic obstructive pulmonary disease) Current visit: Yes Status: Chronic COPD is at baseline. No acute exacerbation. Continue steroid taper. Ipratropium as needed. Continue home breathing treatments. Qualifiers: COPD type: emphysema Emphysema type: panlobular Qualified Code(s): J43.1 - Panlobular emphysema (3) Respiratory failure Current visit: Yes Status: Chronic Patient uses 3 L of oxygen at home [id number]. Currently, patient is requiring 3 L of oxygen. Continue same. Qualifiers: Respiratory failure complication: hypoxia Qualified Code(s): J96.11 - Chronic respiratory failure with hypoxia (4) Sinus tachycardia Current visit: Yes Status: Chronic (5) Obesity (BMI 30.0-34.9) Current visit: No Status: Chronic (6) Hypertension Current visit: Yes Status: Chronic Control blood pressure. Continue home medications. Qualifiers: Hypertension type: essential hypertension Qualified Code(s): I10 - Essential (primary) hypertension Internal Medicine - H&P: HPI Chief complaint: High blood sugar Admitted From: Emergency Dept Plans for Post Hospital Care: Home History of present illness: Ms. Ren is a 56 year old female with a history of COPD on home oxygen who presented to the emergency room due to high blood sugars which were as high as 800 at home. Patient was recently admitted in the hospital for pneumonia and diabetic ketoacidosis/hyperosmolar hyperglycemic coma. He was discharged on July 21 with a prescription for NPH/regular insulin of 100 units twice a day as the patient had been noncompliant with her prior insulin prescriptions due to unaffordability. The patient states that, after she was discharged, she was taking the NPH/regular insulin at 50 units in the morning and 25 units at bedtime. With this regimen, her blood sugars were in the 400s. Then, she went to the [facility] where she received free Lantus that would last her about a month. Then she went to her primary care physician 4 days ago at which time she was told to discontinue her NPH/regular insulin and she was started on 15 units of Lantus. She was instructed to increase the Lantus by 1 unit every 2-3 days until her blood sugars are less than 150. The patient is currently at Lantus 17 units at bedtime. Today, her blood sugars were as high as 800. Hence , the patient resented to the emergency room. Prior to presenting to the emergency room, she states that she took 10 units of the sliding scale insulin. In the emergency room, her sugars were as high as 400s. She was given further short-acting insulin and is being admitted for the same. Patient states that she uses 3 L of home oxygen at baseline. She states that her shortness of breath has been at baseline and that she has not been more short of breath. She does report intermittent yellowish sputum production. She reports her cough is at baseline. She denies any chest pain but reports palpitations. She denies feeling lightheaded. In the emergency department, she underwent a CT angiogram which did not reveal any pulmonary embolus. She got an intravenous dose of Decadron. Currently, she reports some nausea and headache but denies any vomiting, abdominal pain, diarrhea consultation. She denies any recent fever or chills. Past Med Surg Social Fam HX - Past Medical History Attestation: Yes The following information was validated with the patient. Source: patient Medical history: COPD, diabetes, GERD, hyperlipidemia, hypertension, renal disease, other Psychiatric history: no psych history - Past Surgical History Surgical History: appendectomy, cholecystectomy, knee replacement, other - Social History Smoking Status: Former smoker Smokeless Tobacco Status: No Alcohol use: none Drug use: none Current living situation: Home, With Family Activity Level: Independent ambulation Recent Out of Country Travel Within the Last 8 Weeks: No Exposure or Possible Exposure to Illness During Travel: No - Family History Father Family Member Ethnicity: Non- Living Status: Hx Family Cardiac Disorders: Yes (atherrosclerosis) Mother Family Member Ethnicity: Non- Living Status: Still Living Hx Family Cardiac Disorders: Yes (Hypertension) Hx Family Respiratory Disorders: No Hx Family Cancer: No Hx Family GI Disorders: No Hx Family Endocrine Disorder: Yes (Diabetes mellitus) Hx Family Neuromuscular Disorders: No Hx Family Neurologic Disorders: No Hx Family HEENT Disorders: No Hx Family Autoimmune Disorders: No Internal Medicine - H&P: Meds Budesonide/Formoterol 160/4.5 [Symbicort] 2 puff IH BID 09/25/14 [History] Metformin [Glucophage] 1,000 mg PO BID 02/10/15 [History] Pantoprazole Sodium [Protonix] 40 mg PO DAILY 02/10/15 [History] Glimepiride [Amaryl] 4 mg PO DAILY 05/03/15 [History] Losartan/Hydrochlorothiazide [Losartan-Hctz 100-25 mg Tab] 1 tab PO DAILY [History] Cyclobenzaprine HCl 10 mg PO TID PRN 02/20/16 [History] Ipratropium/Albuterol Neb [Duoneb] 3 ml IH Q6HR PRN #90 vial.neb 05/02/16 [Rx] Atorvastatin [Lipitor] 40 mg PO HS 05/16/16 [History] cloNIDine HCl [Clonidine HCl] 0.3 mg PO QID 05/16/16 [History] Aclidinium [place] [Tudorza Pressair] 1 puff IH BID 07/19/16 [History] Aspirin 81 mg PO DAILY 07/19/16 [History] Escitalopram Oxalate 5 mg PO DAILY 07/19/16 [History] Oxycodone HCl [Oxaydo] 5 mg PO BID PRN 07/19/16 [History] Oxygen 3 l .ROUTE AD 07/19/16 [History] Ranitidine HCl [Zantac] 150 mg PO BID 07/19/16 [History] ALPRAZolam [Xanax 0.5 MG Tablet] 0.5 mg PO TID PRN #20 tablet 07/21/16 [Rx] Insulin Lispro Protamin/Lispro [Humalog Mix 75-25 Vial] 100 unit SQ BID 30 Days 07/21/16 [Rx] Losartan/Hydrochlorothiazide [Hyzaar 100-25 Tablet] 1 each PO DAILY #30 tablet 07/21/16 [Rx] Syrge-Ndl,Ins 0.3 ml Half Quirino [Insulin Syringe] 1 each MC BID #100 disp.syrin 07/21/16 [Rx] amLODIPine [Norvasc] 10 mg PO DAILY #30 tablet 07/21/16 [Rx] levoFLOXacin [Levaquin] 500 mg PO DAILY #3 tablet 07/21/16 [Rx] predniSONE [PredniSONE] 60 mg PO DAILY 15 Days 07/21/16 [Rx] clonazePAM [Klonopin] 1 mg PO BID 07/31/16 [History] Allergies NSAIDS (Non-Steroidal Anti-Inflamma Allergy (Unknown, Verified 06/28/16 11:47) See Comments Listed on ECW under allergies- Unknown Reaction Penicillins Allergy (Unknown, Verified 06/28/16 11:47) Hives lisinopril Adverse Reaction (Verified 06/28/16 11:47) Cough tramadol Adverse Reaction (Verified 06/28/16 11:47) Nausea All Systems PM: A 10-system review of systems was performed and is negative for pertinent findings except as documented above in the HPI. Review of systems: 10 systems have been reviewed and are negative except as mentioned in the history of present illness - Constitutional Vitals: Temp Pulse Resp BP Pulse Ox 98.1 F 132 20 152/90 96 07/31/16 01:56 07/31/16 01:56 07/31/16 01:56 07/31/16 01:56 07/31/16 01:56 Exam: Gen.: Sitting in bed. Moderate distress. Eyes: Pupils equal, round and reactive to light. Extraocular muscles intact. ENT: Moist mucous membranes. No oropharyngeal erythema or discharge. Chest: Reduced breath sounds bilaterally. No wheezing heard. No crepitations present. CVS: First and second heart sounds present. No murmurs, rubs or gallops. Tachycardia present. Abdomen: Soft, nontender, obese. Bowel sounds present. No hepatosplenomegaly. Skin: No decubitus ulcers appreciated. C T TECH: No focal neuro deficits present. Psychiatric: Alert, awake and oriented to time, place and person. Lymphatic system: No lymphadenopathy appreciated Internal Med - H&P Results - Labs CBC & Chem 7: 07/30/16 19:28 07/30/16 21:42 - Diagnostic Studies Chest x-ray Status: image reviewed by me (No acute infiltrate seen)
[2016-07-31 03:40] LABS: BUN/Creatinine Ratio 30 (6-26); Blood Urea Nitrogen 20 mg/dL (7-20); Calcium 8.7 mg/dL (8.6-10.8); Carbon Dioxide 25 mEq/L (19-29); Chloride 107 mEq/L (98-109); Glucose 242 mg/dL (70-99); Osmolality,Calculated 307 (280-300); Potassium 3.4 mEq/L (3.5-4.5); Sodium 143 mEq/L (136-145); eGFR For African Americans > 60 (> 60); eGFR For Non-African Americans > 60 (> 60)
[2016-07-31] MEDS ORDERED: Ipratropium/Albuterol Neb 3 ML IH SCH (04:00)
[2016-07-31] MEDS: Ipratropium Neb 0.5 MG NEBULIZER IH SCH ×2 (04:21→07:53)
[2016-07-31] MEDS ORDERED: Furosemide 40 MG/4 ML VIAL IVP ONE (04:59)
[2016-07-31] MEDS ORDERED: cloNIDine HCl 0.1 MG TABLET ONE (06:08)
[2016-07-31] MEDS: cloNIDine HCl 0.1 MG TABLET PO SCH ×2 (06:12→09:11)
[2016-07-31 07:11] VITALS: BP 134/86
[2016-07-31] MEDS ORDERED: Insulin LISPRO 300 UNITS/3 ML VIAL SQ SCH ×2 (07:30→21:00)
[2016-07-31] MEDS ORDERED: *HR* Heparin 5,000 UNIT/ML VIAL SQ SCH (08:00)
[2016-07-31] MEDS ORDERED: Aspirin 81 MG TAB.CHEW PO SCH (09:00)
[2016-07-31] MEDS ORDERED: Losartan/HCTZ 50-12.5 TABLET PO SCH (09:00)
[2016-07-31] MEDS ORDERED: *HR* Metformin 500 MG TABLET PO SCH (09:00)
[2016-07-31] MEDS ORDERED: predniSONE 20 MG TABLET PO SCH ×2 (09:00)
[2016-07-31] MEDS ORDERED: cloNIDine HCl 0.1 MG TABLET PO SCH (09:00)
[2016-07-31] MEDS ORDERED: amLODIPine 5 MG TABLET PO SCH (09:00)
[2016-07-31] MEDS ORDERED: Insulin NPH/REG 70/30 300 UNIT/3 ML VIAL SQ SCH (09:00)
--- NOTE | 2016-07-31 09:52 | Discharge Summary ---
Date of Encounter: 07/31/16 Time of Encounter: 08:20 - Discharge Diagnosis (1) Diabetes mellitus Priority: Primary Status: Chronic Qualifiers: Diabetes mellitus type: type 2 Diabetes mellitus complication status: with hyperglycemia Diabetes mellitus terminal operator insulin use: with jail use Qualified Code(s): E11.65 - Type 2 diabetes mellitus with hyperglycemia; Z79.4 - continuous churn buttermaker (current) 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 (2) COPD (chronic obstructive pulmonary disease) Priority: Secondary Status: Chronic Qualifiers: COPD type: emphysema Emphysema type: panlobular Qualified Code(s): J43.1 - Panlobular emphysema (3) Hypertension Priority: Secondary Status: Chronic Qualifiers: Hypertension type: essential hypertension Qualified Code(s): I10 - Essential (primary) hypertension (4) Obesity (BMI 30.0-34.9) Priority: Secondary Status: Chronic (5) Respiratory failure Priority: Secondary Status: Chronic Qualifiers: Chronicity: chronic Respiratory failure complication: hypoxia Qualified Code(s): J96.11 - Chronic respiratory failure with hypoxia (6) Sinus tachycardia Priority: Secondary Status: Chronic - Discharge Medications Prescriptions: Insulin Glargine [Lantus] 45 unit SQ DAILY #100 mls Home Medications: Budesonide/Formoterol 160/4.5 [Symbicort] 2 puff IH BID 09/25/14 [History] Metformin [Glucophage] 1,000 mg PO BID 02/10/15 [History] Pantoprazole Sodium [Protonix] 40 mg PO DAILY 02/10/15 [History] Glimepiride [Amaryl] 4 mg PO DAILY 05/03/15 [History] Losartan/Hydrochlorothiazide [Losartan-Hctz 100-25 mg Tab] 1 tab PO DAILY [History] Cyclobenzaprine HCl 10 mg PO TID PRN 02/20/16 [History] Ipratropium/Albuterol Neb [Duoneb] 3 ml IH Q6HR PRN #90 vial.neb 05/02/16 [Rx] Atorvastatin [Lipitor] 40 mg PO HS 05/16/16 [History] cloNIDine HCl [Clonidine HCl] 0.3 mg PO QID 05/16/16 [History] Aclidinium [place] [Tudorza Pressair] 1 puff IH BID 07/19/16 [History] Aspirin 81 mg PO DAILY 07/19/16 [History] Escitalopram Oxalate 5 mg PO DAILY 07/19/16 [History] Oxycodone HCl [Oxaydo] 5 mg PO BID PRN 07/19/16 [History] Oxygen 3 l .ROUTE AD 07/19/16 [History] Ranitidine HCl [Zantac] 150 mg PO BID 07/19/16 [History] ALPRAZolam [Xanax 0.5 MG Tablet] 0.5 mg PO TID PRN #20 tablet 07/21/16 [Rx] Losartan/Hydrochlorothiazide [Hyzaar 100-25 Tablet] 1 each PO DAILY #30 tablet 07/21/16 [Rx] Syrge-Ndl,Ins 0.3 ml Half Quirino [Insulin Syringe] 1 each MC BID #100 disp.syrin 07/21/16 [Rx] amLODIPine [Norvasc] 10 mg PO DAILY #30 tablet 07/21/16 [Rx] levoFLOXacin [Levaquin] 500 mg PO DAILY #3 tablet 07/21/16 [Rx] Insulin Glargine [Lantus] 45 unit SQ DAILY #100 mls 07/31/16 [Rx] clonazePAM [Klonopin] 1 mg PO BID 07/31/16 [History] predniSONE [PredniSONE] 60 mg PO DAILY 15 Days 07/31/16 [Rx] Allergies/Adverse Reactions: Allergies NSAIDS (Non-Steroidal Anti-Inflamma Allergy (Unknown, Verified 06/28/16 11:47) See Comments Listed on ECW under allergies- Unknown Reaction Penicillins Allergy (Unknown, Verified 06/28/16 11:47) Hives lisinopril Adverse Reaction (Verified 06/28/16 11:47) Cough tramadol Adverse Reaction (Verified 06/28/16 11:47) Nausea Date of admission: 07/31/16 00:44 Primary care physician: Travsi Phillips, PhD Consults: 07/31/16 04:58 Consult to Private Sector Executive [CONS] Routine Comment: Reason for Consult: Uncontrolled DM Discharging clinician: Chano Aparicio Anticipated date of discharge: 07/31/16 - Patient Status Disposition: Home, Self-Care Condition: Good Functional capacity at discharge: independent ambulation Overall status at discharge: patient is progressing back to baseline - Discharge Instructions Instructions: Chronic Obstructive Pulmonary Disease (DC) Follow Up With: Travis Phillips, PhD [Primary Care Provider] - Additional Instructions: Follow-up with PCP in one week Monitor blood sugars before meals and at bedtime - Diet and Activity Activity: wear oxygen at all times Diet: advance to your usual diet, diabetic diet, low fat, low cholesterol, low salt diet Hospital course: Ms. Ren is a 56 year old female patient with a history of diabetes mellitus type 2, chronic respiratory failure and COPD was observed in hospital after presenting with worsening blood sugars. She had just been discharged from the hospital last week on insulin 75/25 but due to insurance issues she was given Lantus at a free healthcare clinic and at a lower dose. This seems to have resulted in having high blood sugars especially as she was also taking prednisone taper for COPD exacerbation at the same time. After coming to the ER here, she was placed on the floor and received 40 units of Levemir and has been on sliding scale insulin since then sugars running in the 200s. When she first came to the ER her blood sugar was in the 400s and she reported blood sugars in the 800s at home. She was not in DKA. She is feeling much better now and wishes to go home. She is not having any worse respiratory difficulty and is on 3 L O2 supplementation as her baseline. She is currently not being treated for COPD exacerbation. She is stable to be discharged home and will follow up with her primary care provider. She was noted to be tachycardic during her stay here and she reports chronic intermittent sinus tachycardia without any cause identified. Her thyroid hormone levels were normal. She can follow up with her primary care provider for further management. - Time Spent with Patient Total time spent providing and/or coordinating discharge services: Less than 30 minutes (20 min) - Constitutional Vitals: Temp Pulse Resp BP Pulse Ox 98.1 F 123 16 134/86 100 07/31/16 07:00 07/31/16 07:00 07/31/16 07:00 07/31/16 07:00 07/31/16 07:00 General appearance: Present: cooperative, A&O X 3, answers questions appropriately - Respiratory Respiratory exam: Present: prolonged expiratory phase, wheezes. Absent: accessory muscle use, rales, rhonchi - Cardiovascular Cardiovascular exam: Present: RRR, +S1, +S2. Absent: diastolic murmur, gallop, rubs, systolic murmur - GI/Abdominal GI/Abdominal exam: Present: normal bowel sounds, soft, no peritoneal signs. Absent: distended, tenderness - Extremities Exam Extremities exam: Present: warm, radial pulses palpable and symetrical. Absent : calf tenderness, cyanotic, pedal edema - Neurological Exam Neurological exam: Present: CN II-XII intact, oriented X3, no focal deficits. Absent: pronater drift, facial droop, speech deficit - Attending Attestation This document has been at least partially created by [employer] recognition technology by Dr. Aparicio. Errors in grammar, wording or other phrases may exist. If errors are found after the documentation is signed, they will be addressed individually in the addendum section of this document when appropriate.
[2016-07-31 09:58] LABS: Triiodothyronine (T3) Free 2.32 pg/mL (1.71-3.71)
[2016-07-31] MEDS ORDERED: TUDORZA PRESSAIR IH SCH (10:00)
[2016-07-31] MEDS ORDERED: Budesonide/Formoterol 160/4.5 MDI IH SCH (10:00)
[2016-07-31] MEDS ORDERED: Insulin DETEMIR 100 UNIT/ML X5UNITS SQ SCH (21:00)
--- NOTE | 2016-08-02 07:15 | Electrocardiograph Report ---
[place] [address] Test Date: 2016-07-30 Pat Name: Nora Ren Department: 103 Room: 2A26 Gender: F Retail Support Specialist: EN : [id number] Requested By: Robert Hyde Order Number: [id number] Reading MD: Low Cordova MD Measurements Intervals [place] Rate: 140 P: 52 W[place]: 131 QRS: 42 QRSD: 81 T: 52 QT: 328 QTc: 410 Interpretive Statements SINUS TACHYCARDIA, POSSIBLE ATRIAL FLUTTER Poor R wave progression Electronically Signed On 08-02-2016 7:13:28 EDT by Low Cordova MD
== END 2016-07-31 10:38 | disposition home or self-care (01) ==
LOC: EMEROO 19:07 → 2ANU 19:07
PROVIDERS: ADMIT Internal Medicine; ATTEND Internal Medicine

== ENCOUNTER 2016-08-10 18:55 | Inpatient (IN) ==
[2016-08-10 19:52] LABS: Basophils % 0.6 %; Eosinophils # 0.1 K/mcL (0.0-0.6); Eosinophils % 1.4 %; Hematocrit 36.8 % (35.3-44.9); Hemoglobin 11.8 g/dL (11.5-15.4); Immature Granulocytes % 3.1 % (0-4); Immature Platelets 2.5 % (1.1-6.1); Lymphocytes # 1.8 K/mcL (0.6-4.6); Lymphocytes % 34.2 %; Mean Corpuscular HGB Conc 32.1 g/dL (31.6-35.5); Mean Corpuscular Hemoglobin 30.2 pg (28.0-33.3); Mean Corpuscular Volume 94.1 fL (83.0-100.0); Mean Platelet Volume 9.7 fL (9.4-12.4); Monocytes # 0.4 K/mcL (0.0-1.3); Neutrophils # 2.7 K/mcL (1.6-8.9); Platelet Count 439 K/mcL (140-400); Red Blood Count 3.91 M/mcL (3.82-4.97); Red Cell Distribution Width 15.9 % (11.5-14.5); Segmented Neutrophils % 52.7 %
[2016-08-10] MEDS ORDERED: Ipratropium/Albuterol Neb 3 ML IH ONE (20:01)
[2016-08-10] MEDS ORDERED: methylPREDNISolone 125 MG/2 ML VIAL IVP ONE (20:01)
[2016-08-10 20:03] LABS: BUN/Creatinine Ratio 9 (6-26); Blood Urea Nitrogen 7 mg/dL (7-20); Calcium 9.2 mg/dL (8.6-10.8); Carbon Dioxide 18 mEq/L (19-29); Chloride 113 mEq/L (98-109); Glucose 157 mg/dL (70-99); Osmolality,Calculated 305 (280-300); Potassium 3.3 mEq/L (3.5-4.5); Sodium 147 mEq/L (136-145); eGFR For African Americans > 60 (> 60); eGFR For Non-African Americans > 60 (> 60)
[2016-08-10] MEDS ORDERED: *HR* OxyCODONE/APAP 5/325 TABLET PO ONE (20:05)
--- NOTE | 2016-08-10 20:32 | Emergency Department Note ---
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 Patient states she started to get short of breath yesterday. She reports a cough with yellow productive sputum. No fevers, chills, chest pain, nausea, vomiting, diarrhea at home. No history of DVT, PE or KS. Does report that she was admitted 2 months ago and intubated. History of multiple hospital admissions in the past for respiratory issues. No other complaints. 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 (ago): day(s) (1) Context: recent illness Severity: severe Consistency/Duration: constant Improves with: nothing Worsens with: nothing Known history of: COPD Associated symptoms: Reports: cough, wheezing, sputum production. Denies: chest pain, pain with inspiration, fever Treatment prior to arrival: oxygen, bronchodilator Cough present: Yes Cough Description: Involuntary Cough Frequency: Intermittent Sputum production: Yes Sputum Amount: Small Sputum Color: Yellow - Related Data Home oxygen amount: 3 liters Home Medications Medication Instructions Recorded Confirmed Pantoprazole Sodium [Protonix] 40 mg PO DAILY 02/10/15 08/10/16 Losartan/Hydrochlorothiazide 1 tab PO DAILY 05/03/15 08/10/16 [Losartan-Hctz 100-25 mg Tab] cloNIDine HCl [Clonidine HCl] 0.3 mg PO QID 05/16/16 08/10/16 Aspirin 81 mg PO DAILY 07/19/16 08/10/16 Oxycodone HCl [Oxaydo] 5 mg PO BID PRN 07/19/16 08/10/16 Oxygen 3 l .ROUTE AD 07/19/16 08/10/16 Ranitidine HCl [Zantac] 150 mg PO BID 07/19/16 08/10/16 clonazePAM [Klonopin] 1 mg PO BID 07/31/16 08/10/16 Insulin Glargine [Lantus] 22 unit SQ HS 08/10/16 08/10/16 Insulin LISPRO [HumaLOG] 0 units SQ TIDWM 08/10/16 08/10/16 Roflumilast [Daliresp] 500 mcg PO DAILY 08/10/16 08/10/16 Umeclidinium Brm/Vilanterol Tr 1 each IH BID 08/10/16 08/10/16 [Anoro Ellipta 62.5-25 Mcg INH] Previous Rx's Medication Instructions Recorded Ipratropium/Albuterol Neb [Duoneb] 3 ml IH Q6HR PRN #90 vial.neb 05/02/16 Allergies Allergy/AdvReac Type Severity Reaction Status Date / Time NSAIDS (Non-Steroidal Allergy Unknown See Verified 08/10/16 19:01 Anti-Inflamma Comments Penicillins Allergy Unknown Hives Verified 08/10/16 19:01 lisinopril AdvReac Cough Verified 08/10/16 19:01 tramadol AdvReac Nausea Verified 08/10/16 19:01 All systems ED: reviewed and negative except as stated. Constitutional: Denies: fever Cardiovascular: Denies: chest pain Respiratory: Reports: cough, dyspnea, wheezes, sputum production Gastrointestinal: Denies: abdominal pain, nausea, vomiting, diarrhea Past Medical History - Past Medical History Attestation: Yes The following information was validated with the patient. 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 , other - Social History Smoking Status: Former smoker Smokeless Tobacco Status: No Alcohol use: Reports: none Drug use: Reports: none Physical Exam - General Limitations: no limitations General appearance: alert, in no apparent distress - Head Head exam: atraumatic, normocephalic, normal inspection - Eye Eye exam: Present: normal appearance, EOMI - ENT ENT exam: normal exam - Neck Neck exam: Present: normal inspection, full ROM - Chest Chest inspection: Present: normal inspection, symmetric chest wall rise - Respiratory Respiratory exam: Present: wheezes (Diffuse wheezing bilaterally), accessory muscle use, prolonged expiratory phase - Cardiovascular Cardiovascular exam: Present: normal rhythm, tachycardia, normal heart sounds - Abdominal Exam Abdominal exam: Present: soft, Non-Tender. Absent: tenderness - Extremities Exam Extremities exam: Present: normal inspection, full ROM - Expanded Upper Extremity Exam Shoulder exam: Present: normal inspection, full ROM Arm exam: Present: normal inspection, full ROM Elbow exam: Present: normal inspection, full ROM Forearm/Wrist exam: Present: normal inspection, full ROM Hand exam: Present: normal inspection, full ROM - Expanded Lower Extremity Exam Hip/Pelvis exam: Present: normal inspection, full ROM Upper leg exam: Present: normal inspection, full ROM Knee exam: Present: normal inspection, full ROM Lower leg exam: Present: normal inspection, full ROM Ankle exam: Present: normal inspection, full ROM Foot/toe exam: Present: normal inspection, full ROM - Neurological Exam Neurological exam: Present: alert - Psychiatric Psychiatric exam: Present: normal affect, normal mood - Skin Skin exam: Present: warm, dry, intact, normal color Course Course Narrative: Patient seen and examined. Vital signs reviewed. She is on her usual 3 L nasal cannula. We will get an EKG, chest x-ray as well as troponin. Patient ordered duo nebs as well as IV steroids. Disposition pending Vital Signs Temperature 97.9 F 08/10/16 19:01 Pulse Rate 129 08/10/16 19:01 Respiratory Rate 22 08/10/16 19:01 Blood Pressure 130/79 08/10/16 19:01 O2 Sat by Pulse Oximetry 94 08/10/16 19:01 Temperature 97.9 F 08/10/16 19:01 Pulse Rate 117 08/10/16 19:52 Respiratory Rate 28 08/10/16 21:54 Blood Pressure 127/100 08/10/16 21:54 O2 Sat by Pulse Oximetry 98 08/10/16 20:08 Oxygen Delivery Oxygen Delivery Room Air Shortness of Breath/Dyspnea - [facility] Narrative Medical decision making narrative: 56-year-old female presents to the ER due to shortness of breath. History of COPD on oxygen continuously. Sputum production 1 day. Afebrile. She is using her normal oxygen requirement here. Patient given duo nebs and steroids. She was tachycardia after the duo nebs. Her EKG is sinus tachycardia. X-ray with no pneumonia as per radiology read. White count and troponin are within normal limits. Patient will be admitted to the hospitalist service for further management. - Lab Data Lab results reviewed: Yes I reviewed the patient's lab results. Result diagrams: 08/10/16 19:44 08/10/16 19:44 Lab Results 08/10/16 08/10/16 08/10/16 Range/Units 19:44 19:44 19:44 WBC 5.1 (4.3-11.1) K/mcL RBC 3.91 (3.82-4.97) M/mcL Hgb 11.8 (11.5-15.4) g/dL Hct 36.8 (35.3-44.9) % MCV 94.1 (83.0-100.0) fL MCH 30.2 (28.0-33.3) pg MCHC 32.1 (31.6-35.5) g/dL RDW 15.9 H (11.5-14.5) % Plt Count 439 H (140-400) K/mcL MPV 9.7 (9.4-12.4) fL Immature Gran % 3.1 (0-4) % Seg Neutrophils % 52.7 % Lymphocytes % 34.2 % Monocytes % 8.0 % Eosinophils % 1.4 % Basophils % 0.6 % Neutrophils # 2.7 (1.6-8.9) K/mcL Lymphocytes # 1.8 (0.6-4.6) K/mcL Monocytes # 0.4 (0.0-1.3) K/mcL Eosinophils # 0.1 (0.0-0.6) K/mcL Basophils # 0.0 (0.0-0.2) K/mcL Immature Plt Fraction 2.5 (1.1-6.1) % Sodium 147 H (136-145) mEq/L Potassium 3.3 L (3.5-4.5) mEq/L Chloride 113 H (98-109) mEq/L Carbon Dioxide 18 L (19-29) mEq/L BUN 7 (7-20) mg/dL Creatinine 0.80 (0.57-1.11) mg/dL Est GFR ( Amer) > 60 (> 60) Est GFR (Non-Af Amer) > 60 (> 60) BUN/Creatinine Ratio 9 (6-26) Glucose 157 H (70-99) mg/dL Calculated Osmolality 305 H (280-300) Calcium 9.2 (8.6-10.8) mg/dL Troponin I 0.00 (0-0.03) ng/mL B-Natriuretic Peptide (0-100) pg/mL 08/10/16 Range/Units 19:44 WBC (4.3-11.1) K/mcL RBC (3.82-4.97) M/mcL Hgb (11.5-15.4) g/dL Hct (35.3-44.9) % MCV (83.0-100.0) fL MCH (28.0-33.3) pg MCHC (31.6-35.5) g/dL RDW (11.5-14.5) % Plt Count (140-400) K/mcL MPV (9.4-12.4) fL Immature Gran % (0-4) % Seg Neutrophils % % Lymphocytes % % Monocytes % % Eosinophils % % Basophils % % Neutrophils # (1.6-8.9) K/mcL Lymphocytes # (0.6-4.6) K/mcL Monocytes # (0.0-1.3) K/mcL Eosinophils # (0.0-0.6) K/mcL Basophils # (0.0-0.2) K/mcL Immature Plt Fraction (1.1-6.1) % Sodium (136-145) mEq/L Potassium (3.5-4.5) mEq/L Chloride (98-109) mEq/L Carbon Dioxide (19-29) mEq/L BUN (7-20) mg/dL Creatinine (0.57-1.11) mg/dL Est GFR ( Amer) (> 60) Est GFR (Non-Af Amer) (> 60) BUN/Creatinine Ratio (6-26) Glucose (70-99) mg/dL Calculated Osmolality (280-300) Calcium (8.6-10.8) mg/dL Troponin I (0-0.03) ng/mL B-Natriuretic Peptide 65 (0-100) pg/mL - Radiology Data Radiology results reviewed: Yes I reviewed the patient's radiology results. Chest X-Ray 08/10/16 19:04 IMPRESSION: Emphysema with chronic atelectasis/scarring in the middle lobe and lingula. No definite acute disease. D/ / Tony Cody MD / Tony Cody MD Interpreting Provider: Tony Cody MD - EKG Data EKG attestation: Yes I reviewed and interpreted this EKG. EKG results narrative: EKG demonstrates sinus tachycardia with a rate of 127. Normal axis. Normal intervals. No ST elevations or depressions. No acute ischemic findings. No significant changes from previous EKG dated 07/30/16. Marli - Marli Situation: Demographics, MOA Background: Presenting Complaint, Relevant PMH, Meds, & Allergies Assessment: Vital Signs, Course and respsone to treatment, Exam Concerns, Patient/Family Expectation, Pertinant Lab Results, Outstanding Labs Recommendation: Barrier(s) to disposition, Recommendation based on pending studies, treatments, or consults SUrban Report Given to: Dr. Kan Calles Repor Time: 20:49 Attestation Statement - Attestation Attestation: I, Travis Ty, examined this patient and my medical decision-making was reviewed with the CARPENTER LABOR SUPERVISOR/PA/Advanced Practice Nurse/Resident Physician. I agree with the documented findings, disposition and treatment plan as described except to the extent set forth below. 56-year-old female presents with concerns of difficulty in breathing. Patient states her breathing has worsened over the past 4-5 days and feels similar to her previous COPD exacerbations. Patient reports she is unable to complete her activities of daily living at the house. She denies chest pain, nausea, vomiting, diarrhea. No fever chills, rash or recent injury. Patient states her heart rate is usually in the 120s to 130s over the past few weeks, she was given a DuoNeb in the emergency department which made her heart rate rise to 150 , this was a sinus tachycardia. Heart rate did improve after further observation in the emergency department. Patient feels like this is her previous COPD exacerbations. She feels comfortable to be admitted to the hospital for further care and evaluation. EKG showed sinus tachycardia with a rate of 127.
[2016-08-10] MEDS ORDERED: *HR* OxyCODONE Immed Rel 5 MG TABLET PO PRN (23:01)
[2016-08-10] MEDS ORDERED: Acetaminophen 325 MG TABLET PO PRN (23:03)
[2016-08-10] MEDS ORDERED: Naloxone 0.4 MG/ML INJ IVP PRN (23:03)
--- NOTE | 2016-08-10 23:07 | Internal Med History&Physical ---
Date of Encounter: 08/10/16 Time of Encounter: 22:50 Assessment and Plan (1) Acute exacerbation of chronic obstructive airways disease Current visit: No Status: Acute Acute exacerbation of COPD. Continue breathing treatments with albuterol and ipratropium Continue IV Solu-Medrol and empiric IV Rocephin. continue Symbicort May need BiPAP if shortness of breath or O2 sat drops below 90%. (2) Acute on chronic respiratory failure Current visit: No Status: Acute Acute on chronic respiratory failure secondary to COPD. Continue current meds. Qualifiers: Respiratory failure complication: hypoxia and hypercapnia Qualified Code(s) : J96.21 - Acute and chronic respiratory failure with hypoxia; J96.22 - Acute and chronic respiratory failure with hypercapnia (3) Diabetes mellitus Current visit: No Status: Chronic Hyperglycemia, type 2 insulin-dependent. Continue insulin sliding scale and glucose checks. Qualifiers: Diabetes mellitus type: type 2 Diabetes mellitus complication status: with hyperglycemia Diabetes mellitus shelter insulin use: with shelter use Qualified Code(s): E11.65 - Type 2 diabetes mellitus with hyperglycemia; Z79.4 - shelter (current) 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 (4) Hypertension Current visit: No Status: Chronic Controlled. Continue home medications. Monitor Qualifiers: Hypertension type: essential hypertension Qualified Code(s): I10 - Essential (primary) hypertension (5) Tobacco abuse Current visit: No Status: Inactive Former Smoker. Quit about 3 months ago. (6) DVT prophylaxis Current visit: No Status: Acute Continue heparin subcutaneous Internal Medicine - H&P: HPI Admitted From: Emergency Dept History of present illness: Ms. Ren is a 56 year old female with past medical history of COPD, diabetes, GERD, hyperlipidemia, hypertension and renal disease. She presents with complaint to the ED with complaints of shortness of breath that started about 1 day ago. Patient uses oxygen at home at 3 L nasal cannula. Patient says symptoms are gradually worsening. Worse with exertion. She has tried to use her inhalers but they have not worked. Patient also reports having a productive cough which is yellow colored. Also associated with wheezing. Patient denies fever no chest pain no nausea or abdominal pain or any other problems. Patient has been admitted in the past with similar problems with her sclerae failure and has required intubation. Patient is awake and alert and able to provide history at the time of examination. No family members at the time of examination. Patient is able to speak full sentences. She is being admitted for COPD exacerbation. She has no other acute complaints at present. Patient has been explained about her condition and plan of care. She understood and agreed. No unanswered questions. Past Med Surg Social Fam HX - Past Medical History Medical history: COPD, diabetes, GERD, hyperlipidemia, hypertension, renal disease, other Psychiatric history: anxiety - Past Surgical History Surgical History: appendectomy, cholecystectomy, knee replacement, other - Social History Smoking Status: Former smoker Smokeless Tobacco Status: No Alcohol use: none Drug use: none - Family History Father Family Member Ethnicity: Non- Living Status: Age at : 39 Cause of : HEART DISEASE Hx Family Cardiac Disorders: Yes (atherrosclerosis) Mother Family Member Ethnicity: Non- Living Status: Still Living Hx Family Cardiac Disorders: Yes (Hypertension) Hx Family Respiratory Disorders: No Hx Family Cancer: No Hx Family GI Disorders: No Hx Family Endocrine Disorder: Yes (Diabetes mellitus) Hx Family Musculoskeletal Disorders: No Hx Family Neuromuscular Disorders: No Hx Family Neurologic Disorders: No Hx Family HEENT Disorders: No Hx Family Autoimmune Disorders: No Internal Medicine - H&P: Meds Pantoprazole Sodium [Protonix] 40 mg PO DAILY 02/10/15 [History] Losartan/Hydrochlorothiazide [Losartan-Hctz 100-25 mg Tab] 1 tab PO DAILY [History] Ipratropium/Albuterol Neb [Duoneb] 3 ml IH Q6HR PRN #90 vial.neb 05/02/16 [Rx] cloNIDine HCl [Clonidine HCl] 0.3 mg PO QID 05/16/16 [History] Aspirin 81 mg PO DAILY 07/19/16 [History] Oxycodone HCl [Oxaydo] 5 mg PO BID PRN 07/19/16 [History] Oxygen 3 l .ROUTE AD 07/19/16 [History] Ranitidine HCl [Zantac] 150 mg PO BID 07/19/16 [History] clonazePAM [Klonopin] 1 mg PO BID 07/31/16 [History] Insulin Glargine [Lantus] 22 unit SQ HS 08/10/16 [History] Insulin LISPRO [HumaLOG] 0 units SQ TIDWM 08/10/16 [History] Roflumilast [Daliresp] 500 mcg PO DAILY 08/10/16 [History] Umeclidinium Brm/Vilanterol Tr [Anoro Ellipta 62.5-25 Mcg INH] 1 each IH BID [History] Allergies NSAIDS (Non-Steroidal Anti-Inflamma Allergy (Unknown, Verified 08/10/16 19:01) See Comments Listed on ECW under allergies- Unknown Reaction Penicillins Allergy (Unknown, Verified 08/10/16 19:01) Hives lisinopril Adverse Reaction (Verified 08/10/16 19:01) Cough tramadol Adverse Reaction (Verified 08/10/16 19:01) Nausea All Systems PM: A 10-system review of systems was performed and is negative for pertinent findings except as documented above in the HPI. - Constitutional Vitals: Temp Pulse Resp BP Pulse Ox 97.9 F 117 28 127/100 98 08/10/16 19:01 08/10/16 19:52 08/10/16 21:54 08/10/16 21:54 08/10/16 20:08 General appearance: Present: A&O X 3, pleasant, answers questions appropriately. Absent: no acute distress (mild distress) - Head Head exam: Present: atraumatic - ENT ENT exam: Present: mucous membranes dry - Neck Neck exam general surgery: Present: supple - Respiratory Respiratory exam: Present: accessory muscle use (with mild distress), wheezes (b /l) - Cardiovascular Cardiovascular exam: Present: +S1, +S2, tachycardia - GI/Abdominal GI/Abdominal exam: Present: soft. Absent: guarding, tenderness - Extremities Exam Extremities exam: Present: radial pulses palpable and symetrical. Absent: cyanotic, pedal edema, tenderness - Neurological Exam Neurological exam: Present: alert, oriented X3, no focal deficits Internal Med - H&P Results - Labs CBC & Chem 7: 08/10/16 19:44 08/10/16 19:44
[2016-08-10 23:16] LABS: Magnesium 1.5 mg/dL (1.6-2.6)
[2016-08-10] MEDS ORDERED: 0.9 % Sodium Chloride 250 ML ONE (23:41)
[2016-08-10] MEDS: methylPREDNISolone 125 MG/2 ML VIAL IVP SCH (23:52)
[2016-08-11] MEDS: *HR* Morphine 2 MG/ML SYRINGE IVP PRN ×2 (01:25→09:01)
[2016-08-11] MEDS: Ipratropium Neb 0.5 MG NEBULIZER IH SCH ×5 (04:01→15:49)
[2016-08-11] MEDS: Albuterol 2.5 MG/3 ML NEBULIZER IH SCH ×5 (04:02→15:49)
[2016-08-11] MEDS ORDERED: Magnesium Sulfate 2 GM in D5% in Water 100 ML IVPB ONE (06:12)
[2016-08-11] MEDS ORDERED: Indomethacin 25 MG CAPSULE PO PRN (06:17)
[2016-08-11] MEDS: methylPREDNISolone 125 MG/2 ML VIAL IVP SCH ×3 (06:25→20:41)
[2016-08-11] MEDS: *HR* Heparin 5,000 UNIT/ML VIAL SQ SCH ×2 (06:25→17:06)
[2016-08-11 07:17] LABS: Hematocrit 36.6 % (35.3-44.9); Hemoglobin 11.9 g/dL (11.5-15.4); Mean Corpuscular HGB Conc 32.5 g/dL (31.6-35.5); Mean Corpuscular Hemoglobin 30.5 pg (28.0-33.3); Mean Corpuscular Volume 93.8 fL (83.0-100.0); Mean Platelet Volume 10.3 fL (9.4-12.4); Nucleated Red Blood Cells 0.4 /100 WBC (0); Platelet Count 442 K/mcL (140-400); Red Cell Distribution Width 16.1 % (11.5-14.5)
[2016-08-11 07:30] LABS: Alanine Aminotransferase 12 Units/L (0-55); Albumin 3.2 g/dL (3.5-5.0); Albumin/Globulin Ratio 0.8 (1.1-2.2); Alkaline Phosphatase 132 Units/L (38-126); Aspartate Amino Transferase 9 Units/L (5-34); BUN/Creatinine Ratio 15 (6-26); Blood Urea Nitrogen 12 mg/dL (7-20); Calcium 9.2 mg/dL (8.6-10.8); Carbon Dioxide 16 mEq/L (19-29); Chloride 109 mEq/L (98-109); Globulin 3.8 g/dL (2.4-3.5); Glucose 309 mg/dL (70-99); Osmolality,Calculated 303 (280-300); Potassium 3.7 mEq/L (3.5-4.5); Sodium 141 mEq/L (136-145); eGFR For African Americans > 60 (> 60); eGFR For Non-African Americans > 60 (> 60)
[2016-08-11 07:34] LABS: Bilirubin,Total < 0.1 mg/dL (0.2-1.2)
[2016-08-11] MEDS ORDERED: Dextrose Gel 15 GM PO PRN ×2 (08:25)
[2016-08-11] MEDS ORDERED: D5% in Water 1,000 ML IVC PRN (08:25)
[2016-08-11] MEDS ORDERED: *HR* Dextrose 50 % in Water (Syg) 50 ML SYRINGE IVP PRN (08:25)
[2016-08-11 08:43] LABS: Magnesium 1.6 mg/dL (1.6-2.6)
[2016-08-11] MEDS: Insulin LISPRO 300 UNITS/3 ML VIAL SQ SCH ×4 (08:53→20:40)
[2016-08-11] MEDS: Budesonide/Formoterol 160/4.5 MDI IH SCH ×2 (08:58→20:16)
[2016-08-11] MEDS: Aspirin 81 MG TAB.CHEW PO SCH (09:02)
[2016-08-11] MEDS: Losartan/HCTZ 50-12.5 TABLET PO SCH (09:02)
[2016-08-11] MEDS: cloNIDine HCl 0.1 MG TABLET PO SCH ×4 (09:02→20:40)
[2016-08-11] MEDS: (Roflumilast [Daliresp] 500 MCG) PO SCH (09:02)
[2016-08-11 09:05] LABS: Lymphocytes # 0.7 K/mcL (0.6-4.6); Platelet Estimate Increased (Normal)
[2016-08-11] MEDS: Ondansetron 4 MG/2 ML VIAL IVP PRN (10:28)
[2016-08-11] MEDS: Sodium Bicarbonate 100 MEQ in 0.45 % Sodium Chloride 1,000 ML IVC SCH (13:46)
[2016-08-11] MEDS ORDERED: *HR* Metoprolol 5 MG/5 ML VIAL IVP PRN (15:21)
--- NOTE | 2016-08-11 15:30 | Internal Med Progress Note ---
Date of Encounter: 08/11/16 Time of Encounter: 15:25 - Assessment and plan (1) Acute exacerbation of chronic obstructive airways disease Current Visit: No Status: Acute Assessment and plan: Continue systemic steroids (decreased dose to methylprednisolone 60mg IV q8h) continue broncodilator support, IV abx O2 supplementation as needed Bipap support serial ABG (2) Acute respiratory failure Current Visit: No Status: Acute Assessment and plan: Secondary to COPD exacerbation Clinically improving since admission will closely monitor Qualifiers: Respiratory failure complication: hypoxia and hypercapnia Qualified Code(s) : J96.01 - Acute respiratory failure with hypoxia; J96.02 - Acute respiratory failure with hypercapnia (3) Metabolic acidosis Current Visit: Yes Status: Acute Assessment and plan: NAGMA bicarb deficit of 4.7amps will start bicarb gtt (100meq bicarb in 0.45% NS at 100cc x 2L) will closely monitor maybe contributing to generalized weakness (4) Diabetes mellitus Current Visit: No Status: Chronic Assessment and plan: last A1C: 10.1 hold oral antihyperglycemic agents continue ss insulin algorithm monitor FS and BG Qualifiers: Diabetes mellitus type: type 2 Diabetes mellitus complication status: with hyperglycemia Diabetes mellitus longitudinal float operator insulin use: with longitudinal float operator use Qualified Code(s): E11.65 - Type 2 diabetes mellitus with hyperglycemia; Z79.4 - residential (current) 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 (5) DVT prophylaxis Current Visit: No Status: Acute (6) Hypertension Current Visit: Yes Status: Acute Assessment and plan: continue home meds added Lopressor 5mg IV q6h prn SBP>150 or HR>100 with SBP>120. will closely monitor BP Qualifiers: Hypertension type: essential hypertension Qualified Code(s): I10 - Essential (primary) hypertension - Subjective Interval history: Patient seen and examined at bedside. Resting in bed and reports of only a mild improvement in her breathing status since her arrival. States she has a diffuse headache and wishes to get Dilaudid for the headache. States that the morphine she received yesterday made her headache worst and would like Dilaudid for the pain. Patient educated about narcotic associated headaches. Will try Fiorcet for headache at this time. Will obtain an ABG and use bipap support as needed and at bedtime. Pt states her outpatient services director wants her to get a sleep study and she has not been able to get that, also reports of being noncompliant with her bipap overnight. - Constitutional Vitals: Temp Pulse Resp BP Pulse Ox 97.4 F L 114 18 159/96 94 08/11/16 10:45 08/11/16 10:45 08/11/16 10:45 08/11/16 10:45 08/11/16 10:45 General appearance: Present: A&O X 3, obese, answers questions appropriately. Absent: no acute distress - Head Head exam: Present: atraumatic, normocephalic - Eye Eye exam: Present: normal appearance, conjuntiva pink, sclera anicteric - Respiratory Respiratory exam: Present: decreased breath sounds. Absent: respiratory distress, wheezes - Cardiovascular Cardiovascular exam: Present: +S1, +S2, tachycardia - GI/Abdominal GI/Abdominal exam: Present: normal bowel sounds, soft, no peritoneal signs. Absent: distended, tenderness - Extremities Exam Extremities exam: Present: warm, radial pulses palpable and symetrical. Absent : calf tenderness, pedal edema - Neurological Exam Neurological exam: Present: alert, oriented X3 - Psychiatric Psychiatric exam: Present: normal affect, normal mood Internal Medicine: Result - Labs CBC & Chem 7: 08/11/16 06:10 08/11/16 06:10 Labs: Short CBC 08/11/16 Range/Units 06:10 WBC 5.7 (4.3-11.1) K/mcL Hgb 11.9 (11.5-15.4) g/dL Hct 36.6 (35.3-44.9) % Plt Count 442 H (140-400) K/mcL Neutrophils # 5.0 (1.6-8.9) K/mcL BMP 08/11/16 06:10 Sodium 141 Potassium 3.7 Chloride 109 Carbon Dioxide 16 L BUN 12 Creatinine 0.81 Glucose 309 H Calcium 9.2 Liver Function 08/11/16 Range/Units 06:10 Total Bilirubin < 0.1 L (0.2-1.2) mg/dL AST 9 (5-34) Units/L ALT 12 (0-55) Units/L Alkaline Phosphatase 132 H (38-126) Units/L Albumin 3.2 L (3.5-5.0) g/dL Consult Discharge Plan - Plan Referrals: Domitila Lau MD [Primary Care Provider] -
[2016-08-11] MEDS ORDERED: Ipratropium/Albuterol Neb 3 ML IH PRN (15:35)
[2016-08-11] MEDS: Ipratropium/Albuterol Neb 3 ML IH SCH ×3 (15:51→23:11)
[2016-08-11 16:04] LABS: ABG Base Excess 0.7 mEq/L (-2.0 to 3.0); ABG HCO3 24.2 mEQ/L (21-27); ABG Oxygen Saturation 96 % (95-98); ABG PCO2 34 mmHg (35-45); ABG PH 7.46 pH Units (7.32-7.45); ABG PO2 74 mmHg (85-104); ABG TCO2 25.2 mEq/L (20-26)
[2016-08-11 16:05] LABS: Blood Gas FiO2 28 %
[2016-08-11] MEDS: clonazePAM 1 MG TABLET PO PRN (17:06)
[2016-08-11] MEDS: Acetaminophen/Butalbital/CaffeineTABLET PO PRN (17:06)
--- NOTE | 2016-08-11 17:50 | Electrocardiograph Report ---
[address] [address] Test Date: 2016-08-10 Pat Name: Nora Ren Department: 103 Room: 3B48 Gender: F Geriatric Assistant: : 1960 Requested By: Joaquin Perez Order Number: [id number] Reading MD: Low Cordova MD Measurements Intervals [place] Rate: 127 P: 55 [place]: 156 QRS: 39 QRSD: 83 T: 40 QT: 314 QTc: 389 Interpretive Statements SINUS TACHYCARDIA Electronically Signed On 08-11-2016 17:49:11 EDT by Low Cordova MD
[2016-08-11] MEDS: *HR* OxyCODONE Immed Rel 5 MG TABLET PO PRN (20:40)
[2016-08-11] MEDS ORDERED: Insulin DETEMIR 100 UNIT/ML X5UNITS SQ SCH (21:00)
[2016-08-12] MEDS: Acetaminophen/Butalbital/CaffeineTABLET PO PRN (00:42)
[2016-08-12] MEDS: Ondansetron 4 MG/2 ML VIAL IVP PRN ×4 (00:43→20:59)
[2016-08-12] MEDS: Sodium Bicarbonate 100 MEQ in 0.45 % Sodium Chloride 1,000 ML IVC SCH (02:10)
[2016-08-12] MEDS: clonazePAM 1 MG TABLET PO PRN ×2 (02:58→20:59)
[2016-08-12] MEDS: Ipratropium/Albuterol Neb 3 ML IH SCH ×6 (03:57→23:30)
[2016-08-12 05:03] LABS: Basophils % 0.1 %; Hematocrit 31.1 % (35.3-44.9); Immature Granulocytes % 0.8 % (0-4); Lymphocytes % 9.5 %; Mean Corpuscular HGB Conc 32.5 g/dL (31.6-35.5); Mean Corpuscular Hemoglobin 30.3 pg (28.0-33.3); Mean Corpuscular Volume 93.4 fL (83.0-100.0); Monocytes # 0.4 K/mcL (0.0-1.3); Monocytes % 3.6 %; Neutrophils # 8.9 K/mcL (1.6-8.9); Platelet Count 415 K/mcL (140-400); Red Blood Count 3.33 M/mcL (3.82-4.97); Red Cell Distribution Width 16.4 % (11.5-14.5)
[2016-08-12 05:05] LABS: Hemoglobin 10.1 g/dL (11.5-15.4)
[2016-08-12 05:11] LABS: Hemoglobin A1C 8.5 %
[2016-08-12 05:19] LABS: BUN/Creatinine Ratio 22 (6-26); Blood Urea Nitrogen 22 mg/dL (7-20); Calcium 8.8 mg/dL (8.6-10.8); Carbon Dioxide 24 mEq/L (19-29); Chloride 101 mEq/L (98-109); Glucose 238 mg/dL (70-99); Osmolality,Calculated 299 (280-300); Phosphorous 3.2 mg/dL (2.3-4.7); Potassium 3.9 mEq/L (3.5-4.5); Sodium 139 mEq/L (136-145); eGFR For African Americans > 60 (> 60); eGFR For Non-African Americans 56 (> 60)
[2016-08-12] MEDS: methylPREDNISolone 125 MG/2 ML VIAL IVP SCH ×3 (06:33→23:07)
[2016-08-12] MEDS: *HR* Heparin 5,000 UNIT/ML VIAL SQ SCH ×2 (06:33→17:38)
[2016-08-12] MEDS: (Roflumilast [Daliresp] 500 MCG) PO SCH (07:51)
[2016-08-12] MEDS: Aspirin 81 MG TAB.CHEW PO SCH (07:51)
[2016-08-12] MEDS: cloNIDine HCl 0.1 MG TABLET PO SCH ×4 (07:51→20:54)
[2016-08-12] MEDS: Losartan/HCTZ 50-12.5 TABLET PO SCH (07:51)
[2016-08-12] MEDS: *HR* OxyCODONE Immed Rel 5 MG TABLET PO PRN ×2 (07:56→20:53)
[2016-08-12] MEDS: Insulin LISPRO 300 UNITS/3 ML VIAL SQ SCH ×5 (07:59→21:01)
[2016-08-12] MEDS: Budesonide/Formoterol 160/4.5 MDI IH SCH ×2 (10:45→20:41)
[2016-08-12] MEDS ORDERED: SUMAtriptan 6 MG/0.5 ML SQ ONE (15:19)
--- NOTE | 2016-08-12 15:23 | Internal Med Progress Note ---
Date of Encounter: 08/12/16 Time of Encounter: 15:21 - Assessment and plan (1) Acute exacerbation of chronic obstructive airways disease Current Visit: No Status: Acute Assessment and plan: Continue systemic steroids (decreased dose to methylprednisolone 60mg IV q12h) continue broncodilator support, IV abx O2 supplementation as needed Bipap support serial ABG as needed (2) Acute respiratory failure Current Visit: No Status: Acute Assessment and plan: Secondary to COPD exacerbation Clinically improving since admission will closely monitor Qualifiers: Respiratory failure complication: hypoxia and hypercapnia Qualified Code(s) : J96.01 - Acute respiratory failure with hypoxia; J96.02 - Acute respiratory failure with hypercapnia (3) Metabolic acidosis Current Visit: Yes Status: Resolved Assessment and plan: Resolved (4) Diabetes mellitus Current Visit: No Status: Chronic Assessment and plan: last A1C: 10.1, repeat HA1C: 8.5 hold oral antihyperglycemic agents noted to be hyperglycemic requiring 30 units of additional insulin will increase Levemir to 37units qhs and add novolog 5units TIDWM continue ss insulin algorithm monitor FS and BG Qualifiers: Diabetes mellitus type: type 2 Diabetes mellitus complication status: with hyperglycemia 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 will closely monitor BP Qualifiers: Hypertension type: essential hypertension Qualified Code(s): I10 - Essential (primary) hypertension (6) DVT prophylaxis Current Visit: No Status: Acute Assessment and plan: Heparin SQ - Subjective Interval history: Patient seen and examined at bedside. Resting in bed, reports of improvement in her breathing however continues to have persistent headache. states these headaches are chronic in nature which have worsened since her hospitalization. No relief reported from tylenol, fiorcet, oxycodone. Will give sumatriptan sq along with phenergan as patient reports of associated nausea. - Constitutional Vitals: Temp Pulse Resp BP Pulse Ox 97.8 F 78 16 134/77 95 08/12/16 15:08 08/12/16 15:08 08/12/16 15:08 08/12/16 15:08 08/12/16 15:08 General appearance: Present: A&O X 3, no acute distress, obese, answers questions appropriately - Head Head exam: Present: atraumatic, normocephalic - Eye Eye exam: Present: normal appearance, conjuntiva pink, sclera anicteric - Respiratory Respiratory exam: Absent: respiratory distress, wheezes - Cardiovascular Cardiovascular exam: Present: RRR, +S1, +S2 - GI/Abdominal GI/Abdominal exam: Present: normal bowel sounds, soft, no peritoneal signs. Absent: distended, tenderness - Extremities Exam Extremities exam: Present: warm, radial pulses palpable and symetrical. Absent : calf tenderness, pedal edema - Neurological Exam Neurological exam: Present: alert, oriented X3 - Psychiatric Psychiatric exam: Present: normal affect, normal mood Internal Medicine: Result - Labs CBC & Chem 7: 08/12/16 04:31 08/12/16 04:31 Labs: Short CBC 08/12/16 Range/Units 04:31 WBC 10.3 D (4.3-11.1) K/mcL Hgb 10.1 L D (11.5-15.4) g/dL Hct 31.1 L (35.3-44.9) % Plt Count 415 H (140-400) K/mcL Neutrophils # 8.9 (1.6-8.9) K/mcL BMP 08/12/16 04:31 Sodium 139 Potassium 3.9 Chloride 101 Carbon Dioxide 24 BUN 22 H D Creatinine 1.02 Glucose 238 H Calcium 8.8 - ABG Interpretation ABG results: ABG ABG pH 7.46 pH Units (7.32-7.45) H 08/11/16 15:49 ABG pCO2 34 mmHg (35-45) L 08/11/16 15:49 ABG pO2 74 mmHg (85-104) L 08/11/16 15:49 ABG O2 Saturation 96 % (95-98) 08/11/16 15:49 - Impressions Impressions Head CT 08/12/16 03:00 IMPRESSION: No acute intracranial abnormality. D/ / Kirit Chairez MD / Kirit Chairez MD Interpreting Provider: Kirit Chairez MD Consult Discharge Plan - Plan Referrals: Domitila Lau MD [Primary Care Provider] -
[2016-08-12] MEDS: *HR* Promethazine 25 MG/ML VIAL IVP PRN ×2 (16:19→23:12)
[2016-08-12] MEDS ORDERED: Insulin DETEMIR 100 UNIT/ML X5UNITS SQ SCH (21:00)
[2016-08-13] MEDS ORDERED: SUMAtriptan succinate 25 MG TABLET PO ONE (00:17)
[2016-08-13] MEDS: Ipratropium/Albuterol Neb 3 ML IH SCH ×3 (04:07→11:41)
[2016-08-13 06:13] LABS: Basophils % 0.1 %; Hematocrit 32.7 % (35.3-44.9); Hemoglobin 10.2 g/dL (11.5-15.4); Immature Granulocytes % 2.2 % (0-4); Lymphocytes # 0.6 K/mcL (0.6-4.6); Lymphocytes % 8.2 %; Mean Corpuscular HGB Conc 31.2 g/dL (31.6-35.5); Mean Corpuscular Hemoglobin 29.8 pg (28.0-33.3); Mean Corpuscular Volume 95.6 fL (83.0-100.0); Mean Platelet Volume 9.7 fL (9.4-12.4); Monocytes # 0.3 K/mcL (0.0-1.3); Monocytes % 3.8 %; Neutrophils # 5.9 K/mcL (1.6-8.9); Platelet Count 367 K/mcL (140-400); Red Blood Count 3.42 M/mcL (3.82-4.97); Segmented Neutrophils % 85.7 %
[2016-08-13] MEDS: Ondansetron 4 MG/2 ML VIAL IVP PRN (06:13)
[2016-08-13] MEDS: *HR* Heparin 5,000 UNIT/ML VIAL SQ SCH (06:13)
[2016-08-13 06:24] LABS: BUN/Creatinine Ratio 25 (6-26); Blood Urea Nitrogen 21 mg/dL (7-20); Calcium 9.4 mg/dL (8.6-10.8); Carbon Dioxide 29 mEq/L (19-29); Chloride 102 mEq/L (98-109); Glucose 293 mg/dL (70-99); Magnesium 1.7 mg/dL (1.6-2.6); Osmolality,Calculated 304 (280-300); Phosphorous 3.7 mg/dL (2.3-4.7); Potassium 4.5 mEq/L (3.5-4.5); Sodium 140 mEq/L (136-145); eGFR For African Americans > 60 (> 60); eGFR For Non-African Americans > 60 (> 60)
[2016-08-13] MEDS: Insulin LISPRO 300 UNITS/3 ML VIAL SQ SCH ×4 (07:52→12:27)
[2016-08-13] MEDS: cloNIDine HCl 0.1 MG TABLET PO SCH ×2 (07:53→12:26)
[2016-08-13] MEDS: Losartan/HCTZ 50-12.5 TABLET PO SCH (07:53)
[2016-08-13] MEDS: (Roflumilast [Daliresp] 500 MCG) PO SCH (07:53)
[2016-08-13] MEDS: Aspirin 81 MG TAB.CHEW PO SCH (07:53)
[2016-08-13] MEDS: *HR* Promethazine 25 MG/ML VIAL IVP PRN (07:58)
[2016-08-13] MEDS: Budesonide/Formoterol 160/4.5 MDI IH SCH (08:12)
[2016-08-13] MEDS: methylPREDNISolone 125 MG/2 ML VIAL IVP SCH (09:56)
[2016-08-13] MEDS: *HR* OxyCODONE Immed Rel 5 MG TABLET PO PRN (09:56)
[2016-08-13 13:12] VITALS: BP 143/72
--- NOTE | 2016-08-13 13:33 | Discharge Summary ---
Date of Encounter: 08/13/16 Time of Encounter: 12:45 - Discharge Diagnosis (1) Acute exacerbation of chronic obstructive airways disease Priority: Primary Status: Acute (2) Acute respiratory failure Priority: Primary Status: Resolved Qualifiers: Respiratory failure complication: hypoxia and hypercapnia Qualified Code(s) : J96.01 - Acute respiratory failure with hypoxia; J96.02 - Acute respiratory failure with hypercapnia (3) Metabolic acidosis Priority: Secondary Status: Resolved (4) Diabetes mellitus Priority: Secondary Status: Chronic Qualifiers: Diabetes mellitus type: type 2 Diabetes mellitus complication status: with hyperglycemia Diabetes mellitus retirement insulin use: with retirement use Qualified Code(s): E11.65 - Type 2 diabetes mellitus with hyperglycemia; Z79.4 - penitentiary (current) 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 (5) Hypertension Priority: Secondary Status: Chronic Qualifiers: Hypertension type: essential hypertension Qualified Code(s): I10 - Essential (primary) hypertension (6) DVT prophylaxis Priority: Secondary Status: Acute - Discharge Medications Prescriptions: predniSONE [PredniSONE] 40 mg PO DAILY #7 tablet Home Medications: Pantoprazole Sodium [Protonix] 40 mg PO DAILY 02/10/15 [History] Losartan/Hydrochlorothiazide [Losartan-Hctz 100-25 mg Tab] 1 tab PO DAILY [History] Ipratropium/Albuterol Neb [Duoneb] 3 ml IH Q6HR PRN #90 vial.neb 05/02/16 [Rx] cloNIDine HCl [Clonidine HCl] 0.3 mg PO QID 05/16/16 [History] Aspirin 81 mg PO DAILY 07/19/16 [History] Oxycodone HCl [Oxaydo] 5 mg PO BID PRN 07/19/16 [History] Oxygen 3 l .ROUTE AD 07/19/16 [History] Ranitidine HCl [Zantac] 150 mg PO BID 07/19/16 [History] clonazePAM [Klonopin] 1 mg PO BID 07/31/16 [History] Insulin Glargine [Lantus] 22 unit SQ HS 08/10/16 [History] Insulin LISPRO [HumaLOG] 0 units SQ TIDWM 08/10/16 [History] Roflumilast [Daliresp] 500 mcg PO DAILY 08/10/16 [History] Umeclidinium Brm/Vilanterol Tr [Anoro Ellipta 62.5-25 Mcg INH] 1 each IH BID [History] predniSONE [PredniSONE] 40 mg PO DAILY #7 tablet 08/13/16 [Rx] Allergies/Adverse Reactions: Allergies NSAIDS (Non-Steroidal Anti-Inflamma Allergy (Unknown, Verified 08/10/16 19:01) See Comments Listed on [facility] under allergies- Unknown Reaction Penicillins Allergy (Unknown, Verified 08/10/16 19:01) Hives lisinopril Adverse Reaction (Verified 08/10/16 19:01) Cough tramadol Adverse Reaction (Verified 08/10/16 19:01) Nausea Procedures/tests Complete & Pending: Procedures Performed prior 72 hours Category Date Time Status CT head/brain wo con [CT] Stat Cat Scan 08/12/16 03:00 Completed Date of admission: 08/10/16 23:03 Primary care physician: Domitila Lau MD Consults: 08/11/16 00:20 Consult to Laundry Routeman [CONS] Routine Comment: Reason for Consult: Pt requesting to speak about DM. Discharging clinician: Isamar Yee Anticipated date of discharge: 08/13/16 - Patient Status Disposition: Home, Self-Care Condition: Good Functional capacity at discharge: uses cane/walker Overall status at discharge: patient is back to baseline - Discharge Instructions Follow Up With: Domitila Lau MD [Primary Care Provider] - 08/18/16 5:00 pm Additional Instructions: Please follow up with your primary care doctor and finance teacher within one week after your discharge from the hospital. Please continue oral steroids as prescribed. Please continue to use O2 therapy at all times and bipap at bedtime. Resume all other medications as prescribed by your primary care physician. - Diet and Activity Activity: resume usual activities as tolerated, wear oxygen at all times (wear bipap at bedtime ) Diet: diabetic diet, low salt diet Hospital course: Ms. Ren is a 56 year old female with PMH Of COPD on LTOT, DM, HTN, HLD, CKD who was admitted for COPD exacerbation. Patient was started on systemic steroid therapy and bronchodilator support to which she responded appropriately. She reported of being noncompliant with her home bipap therapy and improved significantly after using bipap during her hospitalization. at this time she is hemodynamically stable and back to her baseline respiratory status. She will be discharged to home with oral steroids and follow up with PCP and pulmonology. Physical therapy was offered to the patient however she refused therapy and states she has all that she needs at home and would like to be discharged to home. Patient demonstrates understanding of her diagnosis and agrees with the discharge care and plan. - Time Spent with Patient Total time spent providing and/or coordinating discharge services: Less than 30 minutes - Constitutional Vitals: Temp Pulse Resp BP Pulse Ox 97.9 F 58 16 143/72 95 08/13/16 11:36 08/13/16 11:36 08/13/16 11:41 08/13/16 13:12 08/13/16 11:41 General appearance: Present: A&O X 3, no acute distress, obese, answers questions appropriately - Head Head exam: Present: atraumatic, normocephalic - Eye Eye exam: Present: normal appearance, conjuntiva pink, sclera anicteric - Respiratory Respiratory exam: Absent: respiratory distress, wheezes - Cardiovascular Cardiovascular exam: Present: RRR, +S1, +S2. Absent: diastolic murmur, gallop, rubs, systolic murmur - GI/Abdominal GI/Abdominal exam: Present: normal bowel sounds, soft, no peritoneal signs. Absent: distended, tenderness - Extremities Exam Extremities exam: Present: warm, radial pulses palpable and symetrical. Absent : calf tenderness, pedal edema - Neurological Exam Neurological exam: Present: alert, oriented X3 - Psychiatric Psychiatric exam: Present: normal affect, normal mood
[2016-08-13] MEDS: clonazePAM 1 MG TABLET PO PRN (13:41)
--- NOTE | 2016-08-13 13:46 | Internal Med Progress Note ---
Date of Encounter: 08/13/16 Time of Encounter: 12:35 - Assessment and plan (1) Acute exacerbation of chronic obstructive airways disease Current Visit: No Status: Acute (2) Acute respiratory failure Current Visit: No Status: Resolved Qualifiers: Respiratory failure complication: hypoxia and hypercapnia Qualified Code(s) : J96.01 - Acute respiratory failure with hypoxia; J96.02 - Acute respiratory failure with hypercapnia (3) Metabolic acidosis Current Visit: Yes Status: Resolved (4) Diabetes mellitus Current Visit: No Status: Chronic Qualifiers: Diabetes mellitus type: type 2 Diabetes mellitus complication status: with hyperglycemia Diabetes mellitus 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 Patient reports of feeling better compared to the previous day. Reports of improvement in pain. Patient's states that he will be able to the wound care and will not be needing home health services. Patient states she is not on home oxygen but feels better with oxygen, has documented history of COPD. Will obtain O2 qualification test and make arrangements for home oxygen therapy if patient qualifies. - Constitutional Vitals: Temp Pulse Resp BP Pulse Ox 97.9 F 58 16 143/72 95 08/13/16 11:36 08/13/16 11:36 08/13/16 11:41 08/13/16 13:12 08/13/16 11:41 General appearance: Present: A&O X 3, no acute distress, obese, answers questions appropriately - Head Head exam: Present: atraumatic, normocephalic - Eye Eye exam: Present: conjuntiva pink, sclera anicteric - Respiratory Respiratory exam: Present: CTAB. Absent: accessory muscle use, rales, rhonchi, wheezes Internal Medicine: Result - Labs CBC & Chem 7: 08/13/16 05:50 08/13/16 05:50 Labs: Short CBC 08/13/16 Range/Units 05:50 WBC 6.9 (4.3-11.1) K/mcL Hgb 10.2 L (11.5-15.4) g/dL Hct 32.7 L (35.3-44.9) % Plt Count 367 (140-400) K/mcL Neutrophils # 5.9 (1.6-8.9) K/mcL BMP 08/13/16 05:50 Sodium 140 Potassium 4.5 Chloride 102 Carbon Dioxide 29 BUN 21 H Creatinine 0.84 Glucose 293 H Calcium 9.4 - ABG Interpretation ABG results: ABG ABG pH 7.46 pH Units (7.32-7.45) H 08/11/16 15:49 ABG pCO2 34 mmHg (35-45) L 08/11/16 15:49 ABG pO2 74 mmHg (85-104) L 08/11/16 15:49 ABG O2 Saturation 96 % (95-98) 08/11/16 15:49 Consult Discharge Plan - Plan Additional Instructions: Please follow up with your primary care doctor and waterfront director within one week after your discharge from the hospital. Please continue oral steroids as prescribed. Please continue to use O2 therapy at all times and bipap at bedtime. Resume all other medications as prescribed by your primary care physician. Referrals: Domitila Lau MD [Primary Care Provider] - 08/18/16 5:00 pm Prescriptions: predniSONE [PredniSONE] 40 mg PO DAILY #7 tablet
== END 2016-08-13 14:35 | disposition home or self-care (01) | DRG 190 ==
LOC: EMEROO 18:55 → 3BNU 18:55 → SUATTDRO 23:03
PROVIDERS: ADMIT Family Medicine; ATTEND Internal Medicine

== ENCOUNTER 2016-08-17 11:11 | Inpatient (IN) ==
[2016-08-17] MEDS ORDERED: Ipratropium/Albuterol Neb 3 ML IH ONE ×2 (11:22→12:11)
[2016-08-17] MEDS ORDERED: methylPREDNISolone 125 MG/2 ML VIAL IVP ONE (11:22)
--- NOTE | 2016-08-17 11:27 | Emergency Department Note ---
Disposition Clinical Impression: COPD exacerbation Hypertension Qualifiers: Hypertension type: essential hypertension Qualified Code(s): I10 - Essential ( primary) hypertension Disposition: Admitted As Inpatient Condition: Fair Referrals: NO,PCP [Non-Partnered Physician] - Forms: ED Satisfaction Letter Time of Disposition: 13:33 SOB HPI - General Chief Complaint: ED Shortness of Breath/Dyspnea Stated Complaint: LESTER Time Seen by Provider: 08/17/16 11:18 Source: patient Mode of arrival: wheelchair Limitations: no limitations Nursing Notes Reviewed: Yes Vital Signs Reviewed: Yes - History of Present Illness Patient complains of progressive worsening dyspnea. "My lungs are on fire." She has a known history of oxygen dependent COPD. Anterior chest discomfort. No cough or fevers. Recent admission for same 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 (ago): day(s) Context: recent illness Severity: severe Consistency/Duration: constant, gradually worsening Improves with: oxygen, bronchodilators Worsens with: nothing Known history of: COPD Associated symptoms: Reports: chest pain, wheezing Treatment prior to arrival: oxygen, bronchodilator Cough present: No Sputum production: No - Related Data Home oxygen amount: 3 liters Home Medications Medication Instructions Recorded Confirmed Pantoprazole Sodium [Protonix] 40 mg PO DAILY 02/10/15 08/10/16 Losartan/Hydrochlorothiazide 1 tab PO DAILY 05/03/15 08/10/16 [Losartan-Hctz 100-25 mg Tab] cloNIDine HCl [Clonidine HCl] 0.3 mg PO QID 05/16/16 08/10/16 Aspirin 81 mg PO DAILY 07/19/16 08/10/16 Oxycodone HCl [Oxaydo] 5 mg PO BID PRN 07/19/16 08/10/16 Oxygen 3 l .ROUTE AD 07/19/16 08/10/16 Ranitidine HCl [Zantac] 150 mg PO BID 07/19/16 08/10/16 clonazePAM [Klonopin] 1 mg PO BID 07/31/16 08/10/16 Insulin Glargine [Lantus] 22 unit SQ HS 08/10/16 08/10/16 Insulin LISPRO [HumaLOG] 0 units SQ TIDWM 08/10/16 08/10/16 Roflumilast [Daliresp] 500 mcg PO DAILY 08/10/16 08/10/16 Umeclidinium Brm/Vilanterol Tr 1 each IH BID 08/10/16 08/10/16 [Anoro Ellipta 62.5-25 Mcg INH] Previous Rx's Medication Instructions Recorded Ipratropium/Albuterol Neb [Duoneb] 3 ml IH Q6HR PRN #90 vial.neb 05/02/16 predniSONE [PredniSONE] 40 mg PO DAILY #7 tablet 08/13/16 Allergies Allergy/AdvReac Type Severity Reaction Status Date / Time NSAIDS (Non-Steroidal Allergy Unknown See Verified 08/10/16 19:01 Anti-Inflamma Comments Penicillins Allergy Unknown Hives Verified 08/10/16 19:01 lisinopril AdvReac Cough Verified 08/10/16 19:01 tramadol AdvReac Nausea Verified 08/10/16 19:01 All systems ED: reviewed and negative except as stated. Constitutional: Reports: as per HPI Eyes: Reports: as per HPI ENT ED: Reports: as per HPI Cardiovascular: Reports: chest pain, dyspnea on exertion Respiratory: Reports: dyspnea, wheezes Gastrointestinal: Reports: as per HPI Genitourinary: Reports: as per HPI Musculoskeletal: Reports: as per HPI Integumentary: Reports: as per HPI Neurological: Reports: as per HPI Psychiatric: Reports: as per HPI Endocrine: Reports: as per HPI Hematological/Lymphatic: Reports: as per HPI Allergic/Immunologic: Reports: as per HPI Past Medical History - Past Medical History Source: patient Medical history: Reports: COPD, diabetes, GERD, hyperlipidemia, hypertension, renal disease, other Surgical history: Reports: appendectomy, cholecystectomy, knee replacement, other Psychiatric history: Reports: anxiety 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 , 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 - Social History Smoking Status: Former smoker Smokeless Tobacco Status: No Alcohol use: Reports: none Drug use: Reports: none Physical Exam tachypneic and visibly dyspneic - General Limitations: no limitations General appearance: alert, in no apparent distress, anxious - Head Head exam: atraumatic - Eye Eye exam: Present: normal appearance - ENT ENT exam: normal exam - Neck Neck exam: Present: normal inspection, full ROM - Chest Chest inspection: Present: normal inspection, symmetric chest wall rise - Respiratory Respiratory exam: Present: respiratory distress, wheezes, accessory muscle use, prolonged expiratory phase - Cardiovascular Cardiovascular exam: Present: tachycardia, normal heart sounds - Rectal Exam Rectal exam: Present: deferred - Extremities Exam Extremities exam: Present: normal inspection - Neurological Exam Neurological exam: Present: alert, oriented X3, CN II-XII intact - Psychiatric Psychiatric exam: Present: normal mood, anxious - Skin Skin exam: Present: warm, dry, intact Course Course Narrative: Patient presents with persistent dyspnea. She has a known history of oxygen dependent COPD. Workup initiated. Nebs and steroids ordered - Reevaluation(s) Reevaluation #1: Symptomatically improved at time of reexam Reevaluation #2: Patient tachycardic, jittery, dyspneic, hypertensive. She requests admission Vital Signs Temperature 98.2 F 08/17/16 11:16 Pulse Rate 116 08/17/16 11:16 Respiratory Rate 20 08/17/16 11:16 Blood Pressure 183/88 08/17/16 11:16 O2 Sat by Pulse Oximetry 95 08/17/16 11:16 Temperature 98.2 F 08/17/16 11:16 Pulse Rate 123 08/17/16 13:26 Respiratory Rate 18 08/17/16 13:26 Blood Pressure 184/96 08/17/16 13:26 O2 Sat by Pulse Oximetry 96 08/17/16 13:26 Oxygen Delivery Oxygen Delivery Nasal Cannula Shortness of Breath/Dyspnea - Medical Records Medical records reviewed: Yes I reviewed the patient's medical records. - Lab Data Lab results reviewed: Yes I reviewed the patient's lab results. Result diagrams: 08/17/16 11:40 08/17/16 11:40 Lab Results 08/17/16 08/17/16 08/17/16 Range/Units 11:40 11:40 11:40 WBC 10.2 (4.3-11.1) K/mcL RBC 4.16 (3.82-4.97) M/mcL Hgb 12.5 D (11.5-15.4) g/dL Hct 39.2 (35.3-44.9) % MCV 94.2 (83.0-100.0) fL MCH 30.0 (28.0-33.3) pg MCHC 31.9 (31.6-35.5) g/dL RDW 15.4 H (11.5-14.5) % Plt Count 342 (140-400) K/mcL MPV 10.3 (9.4-12.4) fL Immature Gran % 7.4 H (0-4) % Seg Neutrophils % 77.2 % Lymphocytes % 9.2 % Monocytes % 4.4 % Eosinophils % 0.1 % Basophils % 1.7 % Neutrophils # 7.9 (1.6-8.9) K/mcL Lymphocytes # 0.9 (0.6-4.6) K/mcL Monocytes # 0.5 (0.0-1.3) K/mcL Eosinophils # 0.0 (0.0-0.6) K/mcL Basophils # 0.2 (0.0-0.2) K/mcL Nucleated RBCs/100 WBC 0.7 H (0) /100 WBC PT 11.3 (9.4-12.1) Seconds INR 1.0 Sodium 144 (136-145) mEq/L Potassium 3.3 L (3.5-4.5) mEq/L Chloride 108 (98-109) mEq/L Carbon Dioxide 22 (19-29) mEq/L BUN 26 H (7-20) mg/dL Creatinine 0.71 (0.57-1.11) mg/dL Est GFR ( Amer) > 60 (> 60) Est GFR (Non-Af Amer) > 60 (> 60) BUN/Creatinine Ratio 37 H (6-26) Glucose 229 H (70-99) mg/dL Calculated Osmolality 310 H (280-300) Calcium 8.7 (8.6-10.8) mg/dL Troponin I (0-0.03) ng/mL B-Natriuretic Peptide (0-100) pg/mL 08/17/16 08/17/16 Range/Units 11:40 11:40 WBC (4.3-11.1) K/mcL RBC (3.82-4.97) M/mcL Hgb (11.5-15.4) g/dL Hct (35.3-44.9) % MCV (83.0-100.0) fL MCH (28.0-33.3) pg MCHC (31.6-35.5) g/dL RDW (11.5-14.5) % Plt Count (140-400) K/mcL MPV (9.4-12.4) fL Immature Gran % (0-4) % Seg Neutrophils % % Lymphocytes % % Monocytes % % Eosinophils % % Basophils % % Neutrophils # (1.6-8.9) K/mcL Lymphocytes # (0.6-4.6) K/mcL Monocytes # (0.0-1.3) K/mcL Eosinophils # (0.0-0.6) K/mcL Basophils # (0.0-0.2) K/mcL Nucleated RBCs/100 WBC (0) /100 WBC PT (9.4-12.1) Seconds INR Sodium (136-145) mEq/L Potassium (3.5-4.5) mEq/L Chloride (98-109) mEq/L Carbon Dioxide (19-29) mEq/L BUN (7-20) mg/dL Creatinine (0.57-1.11) mg/dL Est GFR ( Amer) (> 60) Est GFR (Non-Af Amer) (> 60) BUN/Creatinine Ratio (6-26) Glucose (70-99) mg/dL Calculated Osmolality (280-300) Calcium (8.6-10.8) mg/dL Troponin I 0.01 (0-0.03) ng/mL B-Natriuretic Peptide 70 (0-100) pg/mL - Radiology Data Radiology results reviewed: Yes I reviewed the patient's radiology results. - EKG Data EKG attestation: Yes I reviewed and interpreted this EKG. EKG results narrative: Normal sinus rhythm rate 98 IA 146 QRS 88 QT/QTC 326/382
[2016-08-17 11:51] LABS: Prothrombin Time 11.3 Seconds (9.4-12.1)
[2016-08-17 11:57] LABS: BUN/Creatinine Ratio 37 (6-26); Blood Urea Nitrogen 26 mg/dL (7-20); Calcium 8.7 mg/dL (8.6-10.8); Carbon Dioxide 22 mEq/L (19-29); Chloride 108 mEq/L (98-109); Glucose 229 mg/dL (70-99); Osmolality,Calculated 310 (280-300); Potassium 3.3 mEq/L (3.5-4.5); Sodium 144 mEq/L (136-145); eGFR For African Americans > 60 (> 60); eGFR For Non-African Americans > 60 (> 60)
[2016-08-17 12:02] LABS: Basophils # 0.2 K/mcL (0.0-0.2); Basophils % 1.7 %; Eosinophils % 0.1 %; Hematocrit 39.2 % (35.3-44.9); Immature Granulocytes % 7.4 % (0-4); Lymphocytes # 0.9 K/mcL (0.6-4.6); Lymphocytes % 9.2 %; Mean Corpuscular HGB Conc 31.9 g/dL (31.6-35.5); Mean Corpuscular Volume 94.2 fL (83.0-100.0); Mean Platelet Volume 10.3 fL (9.4-12.4); Monocytes # 0.5 K/mcL (0.0-1.3); Monocytes % 4.4 %; Neutrophils # 7.9 K/mcL (1.6-8.9); Nucleated Red Blood Cells 0.7 /100 WBC (0); Platelet Count 342 K/mcL (140-400); Red Blood Count 4.16 M/mcL (3.82-4.97); Red Cell Distribution Width 15.4 % (11.5-14.5); Segmented Neutrophils % 77.2 %
[2016-08-17 12:03] LABS: Hemoglobin 12.5 g/dL (11.5-15.4)
[2016-08-17] MEDS ORDERED: cloNIDine HCl 0.1 MG TABLET PO ONE (12:55)
[2016-08-17] MEDS ORDERED: Ondansetron 4 MG/2 ML VIAL IVP ONE (12:55)
[2016-08-17] MEDS ORDERED: clonazePAM 0.5 MG TABLET PO ONE (14:19)
[2016-08-17] MEDS ORDERED: *HR* OxyCODONE/APAP 5/325 TABLET PO ONE (15:21)
[2016-08-17] MEDS ORDERED: Acetaminophen 325 MG TABLET PO PRN (15:40)
[2016-08-17] MEDS ORDERED: Naloxone 0.4 MG/ML INJ IVP PRN (15:40)
[2016-08-17] MEDS ORDERED: Dextrose Gel 15 GM PO PRN ×2 (16:05)
[2016-08-17] MEDS ORDERED: D5% in Water 1,000 ML IVC PRN (16:05)
[2016-08-17] MEDS ORDERED: *HR* Dextrose 50 % in Water (Syg) 50 ML SYRINGE IVP PRN (16:05)
[2016-08-17] MEDS ORDERED: Albuterol 2.5 MG/3 ML NEBULIZER IH PRN (16:06)
--- NOTE | 2016-08-17 16:16 | Internal Med History&Physical ---
<Maria De Jesus Blank - Last Filed: 08/17/16 16:47> Date of Encounter: 08/17/16 Time of Encounter: 16:13 Assessment and Plan (1) Acute exacerbation of chronic obstructive airways disease Current visit: No Status: Acute 1 patient had a recent hospitalization from acute exacerbation of COPD. She continues to experience increase in stress of breath at rest and with exertion. She denies any fevers chills cough or change in sputum. She is on home oxygen 3 L nasal cannula we will continue with oxygen titrated to maintain SPO2 greater than 92% 2 continue with BiPAP at night 3 continue bronchodilators 4 continue with dailiresp 5 steroids to taper (2) Diabetes mellitus Current visit: No Status: Chronic 1 Accu-Cheks before meals at bedtime with sliding scale insulin will continue with basal-patient is on steroids expect rising glucose will adjust as needed Qualifiers: Diabetes mellitus type: type 2 Diabetes mellitus complication status: with hyperglycemia Diabetes mellitus jail insulin use: with jail use Qualified Code(s): E11.65 - Type 2 diabetes mellitus with hyperglycemia; Z79.4 - jail (current) 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 (3) Hypertension Current visit: No Status: Chronic Patient's blood pressure was elevated upon presentation. She was given clonidine and a blood pressure has slowly normalized. We will continue with home dose of clonidine. Qualifiers: Hypertension type: essential hypertension Qualified Code(s): I10 - Essential (primary) hypertension (4) Hypokalemia Current visit: Yes Status: Acute 1 patient's potassium was 3.3 she has taken several breathing treatments today we will replace and recheck 2 we will check magnesium (5) Tachycardia Current visit: Yes Status: Acute Suspect this is related to multiple uses of albuterol. We will place on lathe puller We will give IV fluids LR 1 L We will get anti-anxieties as needed (6) DVT prophylaxis Current visit: No Status: Acute 1 ROWDY elena Internal Medicine - H&P: HPI Chief complaint: SOB Admitted From: Emergency Dept Plans for Post Hospital Care: Home History of present illness: Ms. Ren is a 56 year old female past mother history of COPD oxygen dependent diabetes GERD obstructive sleep apnea hypertension patient had a recent hospitalization she was discharged to his hospital last after experiencing exacerbation of COPD. She said since that discharge she is continued to experience increased shortness of breath which occurs at rest as well as during exertion. She denies any cough or fever denies any sick contacts. She does express orthopnea and has been sleeping in her chair. She is presently on 3 L nasal cannula home she has been using breathing treatments without any relief of her symptoms. She states she has been taking her medications as prescribed. She describes having lung pain, which occurs during inspiration and is relieved with her pain medication. She presented to the ER with the above complaints. According to ER records upon presentation patient's oxygen saturation was 93 on 3 L she was tachycardic she had some hypertension patient was given clonidine as well as Klonopin breathing treatments and IV steroids which did slightly improve her respiratory state. She has been admitted for further workup and evaluation. Presently patient does not appear to be any respiratory distress she denies any chest pain however does admit to lung pain which she states occurs on inspiration. Heart sounds are regular S1 and S2 with no rubs clicks gallops murmurs noted lungs sounds are diminished throughout lung salazar. Abdomen soft nontender no lower extremity swelling noted. Blood pressure is slightly elevated 173/93 which patient states is improved. I reviewed this case with who agrees with plan. Past Med Surg Social Fam HX - Past Medical History Medical history: COPD, diabetes, GERD, hyperlipidemia, hypertension, renal disease, other Psychiatric history: anxiety - Past Surgical History Surgical History: appendectomy, cholecystectomy, knee replacement, other - Social History Smoking Status: Former smoker Smokeless Tobacco Status: No Alcohol use: none Drug use: none - Family History Father Family Member Ethnicity: Non- Living Status: Hx Family Cardiac Disorders: Yes (atherrosclerosis) Mother Family Member Ethnicity: Non- Living Status: Still Living Hx Family Cardiac Disorders: Yes (Hypertension) Hx Family Respiratory Disorders: No Hx Family Cancer: No Hx Family GI Disorders: No Hx Family Endocrine Disorder: Yes (Diabetes mellitus) Hx Family Neuromuscular Disorders: No Hx Family Neurologic Disorders: No Hx Family HEENT Disorders: No Hx Family Autoimmune Disorders: No Internal Medicine - H&P: Meds Pantoprazole Sodium [Protonix] 40 mg PO DAILY 02/10/15 [History] Losartan/Hydrochlorothiazide [Losartan-Hctz 100-25 mg Tab] 1 tab PO DAILY [History] Ipratropium/Albuterol Neb [Duoneb] 3 ml IH Q6HR PRN #90 vial.neb 05/02/16 [Rx] cloNIDine HCl [Clonidine HCl] 0.3 mg PO QID 05/16/16 [History] Aspirin 81 mg PO DAILY 07/19/16 [History] Oxycodone HCl [Oxaydo] 5 mg PO BID PRN 07/19/16 [History] Oxygen 3 l .ROUTE AD 07/19/16 [History] Ranitidine HCl [Zantac] 150 mg PO BID 07/19/16 [History] clonazePAM [Klonopin] 1 mg PO BID 07/31/16 [History] Insulin Glargine [Lantus] 22 unit SQ HS 08/10/16 [History] Insulin LISPRO [HumaLOG] 0 units SQ TIDWM 08/10/16 [History] Roflumilast [Daliresp] 500 mcg PO DAILY 08/10/16 [History] Umeclidinium Brm/Vilanterol Tr [Anoro Ellipta 62.5-25 Mcg INH] 1 puff IH BID [History] predniSONE [PredniSONE] 40 mg PO DAILY #7 tablet 08/13/16 [Rx] Allergies NSAIDS (Non-Steroidal Anti-Inflamma Allergy (Unknown, Verified 08/10/16 19:01) See Comments Listed on ECW under allergies- Unknown Reaction Penicillins Allergy (Unknown, Verified 08/10/16 19:01) Hives lisinopril Adverse Reaction (Verified 08/10/16 19:01) Cough tramadol Adverse Reaction (Verified 08/10/16 19:01) Nausea All Systems PM: A 10-system review of systems was performed and is negative for pertinent findings except as documented above in the HPI. - Constitutional Constitutional: no chills, no fever(s), no night sweats - EENT Eyes: no change in vision, no discharge, no pain, no photophobia Nose, mouth and throat: no dysphagia, no nasal discharge, no neck pain, no sore throat - Cardiovascular Cardiovascular ROS IM: dyspnea on exertion, orthopnea, no chest pain, no diaphoresis, no dyspnea, no lightheadedness, no palpitations, no syncope - Respiratory Respiratory: cough, dyspnea, dyspnea on exertion, pain on inspiration - Gastrointestinal Gastrointestinal: no abdominal pain, no diarrhea, no hematemesis, no hematochezia, no melena, no nausea, no vomiting - Genitourinary Genitourinary: no change in urinary stream, no dysuria, no flank pain, no hematuria - Musculoskeletal Musculoskeletal ROS IM: no numbness, no tingling - Integumentary Integumentary IM: no rash, no unusual bruising - Neurological Neurological ROS: no confusion, no convulsions, no focal weakness, no numbness, no tingling, no tremor(s) - Hematologic/Lymphatic Hematologic/Lymphatic: no easy bruising - Constitutional Vitals: Temp Pulse Resp BP Pulse Ox 98.2 F 123 18 168/102 96 08/17/16 11:16 08/17/16 13:26 08/17/16 15:11 08/17/16 15:30 08/17/16 13:26 General appearance: Present: A&O X 3, answers questions appropriately - Head Head exam: Present: atraumatic, normocephalic - Eye Eye exam: Present: PERRL, conjuntiva pink, sclera anicteric - Neck Neck exam general surgery: Present: supple, trachea midline. Absent: lymphadenopathy - Respiratory Respiratory exam: Present: decreased breath sounds, CTAB. Absent: accessory muscle use, rales, rhonchi, wheezes - Cardiovascular Cardiovascular exam: Present: RRR, +S1, +S2. Absent: diastolic murmur, gallop, rubs, systolic murmur - GI/Abdominal GI/Abdominal exam: Present: normal bowel sounds, soft, no peritoneal signs. Absent: distended, tenderness - Extremities Exam Extremities exam: Present: warm, radial pulses palpable and symetrical. Absent : calf tenderness, cyanotic, pedal edema - Neurological Exam Neurological exam: Present: CN II-XII intact, oriented X3, no focal deficits. Absent: pronater drift, facial droop, speech deficit - Skin Skin exam: Present: dry, intact Internal Med - H&P Results - Labs CBC & Chem 7: 08/17/16 11:40 08/17/16 11:40 - Diagnostic Studies Chest x-ray Additional comments: Chest X-Ray 08/17/16 11:22 IMPRESSION: Stable appearance of the chest without evidence of acute cardiopulmonary disease. D/ / Alcides Ontiveros MD / Alcides Ontiveros MD Interpreting Provider: Alcides Ontiveros MD <Oebd Krause T - Last Filed: 08/17/16 17:26> Date of Encounter: 08/17/16 Internal Medicine - H&P: HPI History of present illness: Ms. Ren is a 56 year old female All Systems PM: A 10-system review of systems was performed and is negative for pertinent findings except as documented above in the HPI. - Constitutional Vitals: Temp Pulse Resp BP Pulse Ox 98.6 F 117 17 169/102 96 08/17/16 16:14 08/17/16 16:14 08/17/16 16:14 08/17/16 16:14 08/17/16 16:14 Internal Med - H&P Results - Labs CBC & Chem 7: 08/17/16 11:40 08/17/16 11:40 - Attending Attestation Patient seen and examined 56 F with Chronic resp failure on home O2 and BiPAP Presented with wheezing and difficulty breathing, no change in cough or phlegm. She received several nebulizer treatments and at time of review she was jittery , tachycardic and hypertensive, she had received her home meds Physical exam VS-Elevated BP and HR< O2 sat 95% on 2L O2, sitting up in bed with no form of distress, chest is clear but distant, heart soudns S1, S2 only, no m/g/r, abdomen is benign, no pedal edema on extremities Labs unremarkable, save for mild hypokalemia, CXR with no infiltrate A/P *COPDE: Continue nebs, prednisone-she may need prolonged tapering as O-P, no indication for antibiotics for now *Tachycardia: From repeat multiple nebs, EKG sinus, give IVF, place on cardiac monitoring *HTN: Resume home meds Rest of details as in RETREAD MOLD OPERATOR Abhay documentation which I agree with
[2016-08-17] MEDS ORDERED: Ringers Solution, Lactated 1,000 ML IVC SCH (16:45)
[2016-08-17] MEDS ORDERED: *HR* Promethazine 25 MG/ML VIAL IVP ONE (16:58)
[2016-08-17] MEDS: cloNIDine HCl 0.1 MG TABLET PO SCH ×2 (16:59→20:31)
[2016-08-17] MEDS: Insulin LISPRO 300 UNITS/3 ML VIAL SQ SCH ×2 (16:59→21:54)
[2016-08-17] MEDS ORDERED: MethylPREDNISolone 40 MG/ML VIAL IVP SCH (18:00)
[2016-08-17] MEDS: Ipratropium/Albuterol Neb 3 ML IH SCH ×2 (19:50→23:21)
[2016-08-17] MEDS: clonazePAM 1 MG TABLET PO SCH (20:32)
[2016-08-17] MEDS: Insulin DETEMIR 100 UNIT/ML X5UNITS SQ SCH (20:32)
[2016-08-17] MEDS: *HR* OxyCODONE Immed Rel 5 MG TABLET PO PRN (20:32)
[2016-08-17] MEDS: (Umeclidinium Brm/Vilanterol Tr [Anoro Ellipta 62.5-2) IH SCH (20:32)
[2016-08-17] MEDS: Famotidine 20 MG TABLET PO SCH (20:32)
[2016-08-17] MEDS: Ondansetron 4 MG/2 ML VIAL IVP PRN (21:54)
[2016-08-18] MEDS ORDERED: *HR* OxyCODONE Immed Rel 5 MG TABLET PO ONE (00:29)
[2016-08-18] MEDS: Ipratropium/Albuterol Neb 3 ML IH SCH ×5 (03:28→20:02)
[2016-08-18 04:50] LABS: BUN/Creatinine Ratio 36 (6-26); Blood Urea Nitrogen 25 mg/dL (7-20); Calcium 8.7 mg/dL (8.6-10.8); Carbon Dioxide 25 mEq/L (19-29); Chloride 104 mEq/L (98-109); Glucose 206 mg/dL (70-99); Magnesium 1.7 mg/dL (1.6-2.6); Osmolality,Calculated 300 (280-300); Sodium 140 mEq/L (136-145); eGFR For African Americans > 60 (> 60); eGFR For Non-African Americans > 60 (> 60)
[2016-08-18 04:53] LABS: Basophils # 0.1 K/mcL (0.0-0.2); Basophils % 0.5 %; Immature Granulocytes % 4.5 % (0-4); Lymphocytes % 10.1 %; Mean Corpuscular HGB Conc 31.8 g/dL (31.6-35.5); Mean Corpuscular Hemoglobin 29.9 pg (28.0-33.3); Mean Corpuscular Volume 94.2 fL (83.0-100.0); Mean Platelet Volume 10.3 fL (9.4-12.4); Monocytes # 0.5 K/mcL (0.0-1.3); Monocytes % 4.9 %; Neutrophils # 8.1 K/mcL (1.6-8.9); Nucleated Red Blood Cells 0.2 /100 WBC (0); Platelet Count 329 K/mcL (140-400); Red Blood Count 3.61 M/mcL (3.82-4.97); Red Cell Distribution Width 15.5 % (11.5-14.5)
[2016-08-18 04:55] LABS: Hemoglobin 10.8 g/dL (11.5-15.4)
[2016-08-18] MEDS: clonazePAM 1 MG TABLET PO SCH ×2 (08:43→21:13)
[2016-08-18] MEDS: Ondansetron 4 MG/2 ML VIAL IVP PRN ×2 (08:43→17:35)
[2016-08-18] MEDS: Famotidine 20 MG TABLET PO SCH ×2 (08:43→21:13)
[2016-08-18] MEDS: Aspirin 81 MG TAB.CHEW PO SCH (08:43)
[2016-08-18] MEDS: cloNIDine HCl 0.1 MG TABLET PO SCH ×4 (08:43→21:12)
[2016-08-18] MEDS: Losartan/HCTZ 50-12.5 TABLET PO SCH (08:43)
[2016-08-18] MEDS: Insulin LISPRO 300 UNITS/3 ML VIAL SQ SCH ×4 (08:44→21:12)
[2016-08-18] MEDS: *HR* OxyCODONE Immed Rel 5 MG TABLET PO PRN ×2 (08:44→21:13)
[2016-08-18] MEDS ORDERED: predniSONE 20 MG TABLET PO SCH (09:00)
[2016-08-18] MEDS: (Umeclidinium Brm/Vilanterol Tr [Anoro Ellipta 62.5-2) IH SCH ×2 (11:00→21:11)
[2016-08-18] MEDS: MethylPREDNISolone 40 MG/ML VIAL IVP SCH ×2 (14:04→17:35)
--- NOTE | 2016-08-18 17:19 | Electrocardiograph Report ---
[facility] [employer] Test Date: 2016-08-17 Pat Name: Nora Ren Department: 103 Room: 3B23 Gender: F Cotton Opener: [facility] : 1960 Requested By: Noe Polanco Order Number: [id number] Reading MD: Enrique Gomez MD Measurements Intervals [place] Rate: 98 P: 35 TN: 146 QRS: 41 QRSD: 88 T: 38 QT: 326 QTc: 382 Interpretive Statements SINUS RHYTHM WITH SINUS ARRHYTHMIA WARNING: DATA QUALITY MAY AFFECT INTERPRETATION INTERPRETATION BASED ON A DEFAULT AGE OF 40 YEARS Electronically Signed On 08-18-2016 17:17:55 EDT by Enrique Gomez MD
--- NOTE | 2016-08-18 17:31 | Internal Med Progress Note ---
Date of Encounter: 08/18/16 Time of Encounter: 14:00 - Assessment and plan (1) Acute exacerbation of chronic obstructive airways disease Current Visit: No Status: Acute Assessment and plan: Patient stating she did not feels if she was ready for discharge last week. She also states that when it rains outside, that she simply cannot breathe. She states that she still feels slightly better than yesterday but she is nowhere near back to her baseline. Continue bronchodilators, methylprednisolone , mucolytic's. Chest x-ray negative. Patient denies productive cough. No increased need for oxygen, we will continue to monitor. Increased dyspnea during brain would potentially be consistent with an asthmatic component to her lung disease, recommend follow-up outpatient with talent manager. ITS Impressions Chest X-Ray 08/17/16 11:22 IMPRESSION: Stable appearance of the chest without evidence of acute cardiopulmonary disease. D/ / Alcides Ontiveros MD / Alcides Ontiveros MD Interpreting Provider: Alcides Ontiveros MD (2) JORGE (obstructive sleep apnea) Current Visit: No Status: Chronic Assessment and plan: Patient has her BiPAP at home however somehow the machine got reset and she does not know what the settings are. She has brought in her home machine to be fixed. BiPAP while sleeping ordered. (3) Acute on chronic respiratory failure with hypoxia and hypercapnia Current Visit: No Status: Chronic Assessment and plan: Patient on 3 L per nasal cannula continuously during the day and BiPAP at night , continued. No increased need for oxygenation at this time. (4) Hypertension Current Visit: No Status: Chronic Assessment and plan: Uncontrolled. At home, she is on clonidine 0.3 mg 4 times a day, losartan 100 mg daily, HCTZ 25 mg daily and all of these medications have been continued. We will continue to trend her blood pressure as her COPD exacerbation is treated. Qualifiers: Hypertension type: essential hypertension Qualified Code(s): I10 - Essential (primary) hypertension (5) Accelerated hypertension Current Visit: No Status: Resolved (6) Diabetes mellitus Current Visit: No Status: Chronic Assessment and plan: Moderately controlled with recent A1c of 8.5%. Continue sliding scale while admitted. Qualifiers: Diabetes mellitus type: type 2 Diabetes mellitus complication status: with hyperglycemia Diabetes mellitus assisted insulin use: with meterman use Qualified Code(s): E11.65 - Type 2 diabetes mellitus with hyperglycemia; Z79.4 - jail (current) 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 (7) History of renal artery stenosis Current Visit: No Status: Chronic Assessment and plan: Renal functioning normal. We will consider retroperitoneal ultrasound if blood pressure remains uncontrolled (8) DVT prophylaxis Current Visit: No Status: Acute Assessment and plan: Subcutaneous Lovenox ordered (9) Generalized osteoarthrosis, involving multiple sites Current Visit: No Status: Chronic (10) Hypokalemia Current Visit: Yes Status: Resolved (11) GERD (gastroesophageal reflux disease) Current Visit: No Status: Chronic Assessment and plan: Denies current symptoms Qualifiers: Esophagitis presence: without esophagitis Qualified Code(s): K21.9 - Gastro -esophageal reflux disease without esophagitis (12) History of tobacco abuse Current Visit: No Status: Chronic (13) Anxiety Current Visit: No Status: Chronic Assessment and plan: Mood and affect stable - Subjective Interval history: Patient seen and examined. On examination, patient is sitting upright in bed conversing with her son. Patient stating she is feeling slightly better than yesterday but states she is nowhere near back to her baseline. She is endorsing a normal appetite. - Constitutional Vitals: Temp Pulse Resp BP Pulse Ox 98.2 F 80 17 159/88 96 08/18/16 16:01 08/18/16 16:01 08/18/16 16:01 08/18/16 16:01 08/18/16 16:01 General appearance: Present: mild distress, A&O X 3, pleasant, answers questions appropriately - Head Head exam: Present: atraumatic, normocephalic - Eye Eye exam: Present: PERRL, conjuntiva pink, sclera anicteric Pupils: Present: PERRL - Neck Neck exam general surgery: Present: supple, trachea midline. Absent: lymphadenopathy - Respiratory Respiratory exam: Present: accessory muscle use, decreased breath sounds, prolonged expiratory phase, respiratory distress. Absent: rales, rhonchi, wheezes (no wheezing appreciated; too tight) - Cardiovascular Cardiovascular exam: Present: RRR, +S1, +S2. Absent: diastolic murmur, gallop, rubs, systolic murmur - GI/Abdominal GI/Abdominal exam: Present: normal bowel sounds, soft, no peritoneal signs. Absent: distended, tenderness - Extremities Exam Extremities exam: Present: warm, radial pulses palpable and symetrical. Absent : calf tenderness, cyanotic, pedal edema - Neurological Exam Neurological exam: Present: alert, CN II-XII intact, normal gait, oriented X3, no focal deficits, strengths equal and symetr throughout. Absent: pronater drift, facial droop, speech deficit - Skin Skin exam: Present: dry, intact, normal color, warm Internal Medicine: Result - Labs CBC & Chem 7: 08/18/16 03:55 08/18/16 03:55 Labs: Short CBC 08/18/16 Range/Units 03:55 WBC 10.2 (4.3-11.1) K/mcL Hgb 10.8 L D (11.5-15.4) g/dL Hct 34.0 L (35.3-44.9) % Plt Count 329 (140-400) K/mcL Neutrophils # 8.1 (1.6-8.9) K/mcL BMP 08/18/16 03:55 Sodium 140 Potassium 4.0 Chloride 104 Carbon Dioxide 25 BUN 25 H Creatinine 0.70 Glucose 206 H Calcium 8.7 - ABG Interpretation ABG results: PT/INR, D-dimer PT 11.3 Seconds (9.4-12.1) 08/17/16 11:40 Consult Discharge Plan - Plan Referrals: Domitila Lau MD [Primary Care Provider] -
[2016-08-18] MEDS: Insulin DETEMIR 100 UNIT/ML X5UNITS SQ SCH (21:13)
[2016-08-19] MEDS: MethylPREDNISolone 40 MG/ML VIAL IVP SCH ×4 (00:03→17:24)
[2016-08-19] MEDS: Ondansetron 4 MG/2 ML VIAL IVP PRN ×3 (00:03→20:47)
[2016-08-19] MEDS: Ipratropium/Albuterol Neb 3 ML IH SCH ×7 (00:29→23:08)
[2016-08-19 03:27] LABS: Hematocrit 35.1 % (35.3-44.9); Hemoglobin 11.3 g/dL (11.5-15.4); Mean Corpuscular HGB Conc 32.2 g/dL (31.6-35.5); Mean Corpuscular Hemoglobin 30.3 pg (28.0-33.3); Mean Corpuscular Volume 94.1 fL (83.0-100.0); Mean Platelet Volume 10.1 fL (9.4-12.4); Monocytes # 0.2 K/mcL (0.0-1.3); Nucleated Red Blood Cells 0.2 /100 WBC (0); Platelet Count 322 K/mcL (140-400); Red Blood Count 3.73 M/mcL (3.82-4.97); Red Cell Distribution Width 15.5 % (11.5-14.5)
[2016-08-19 03:42] LABS: BUN/Creatinine Ratio 32 (6-26); Blood Urea Nitrogen 28 mg/dL (7-20); Calcium 8.9 mg/dL (8.6-10.8); Carbon Dioxide 25 mEq/L (19-29); Chloride 100 mEq/L (98-109); Glucose 317 mg/dL (70-99); Osmolality,Calculated 300 (280-300); Sodium 136 mEq/L (136-145); eGFR For African Americans > 60 (> 60); eGFR For Non-African Americans > 60 (> 60)
[2016-08-19 03:50] LABS: Potassium 5.1 mEq/L (3.5-4.5)
[2016-08-19 04:03] LABS: Lymphocytes # 1.5 K/mcL (0.6-4.6); Neutrophils # 7.7 K/mcL (1.6-8.9); Platelet Estimate Normal (Normal)
[2016-08-19] MEDS: *HR* Enoxaparin 40 MG/0.4 ML SYRINGE SQ SCH (05:46)
[2016-08-19] MEDS: Insulin LISPRO 300 UNITS/3 ML VIAL SQ SCH ×4 (08:11→20:42)
[2016-08-19] MEDS: *HR* OxyCODONE Immed Rel 5 MG TABLET PO PRN ×2 (08:12→15:15)
[2016-08-19] MEDS: (Umeclidinium Brm/Vilanterol Tr [Anoro Ellipta 62.5-2) IH SCH (08:12)
[2016-08-19] MEDS: Aspirin 81 MG TAB.CHEW PO SCH (08:12)
[2016-08-19] MEDS: Losartan/HCTZ 50-12.5 TABLET PO SCH (08:12)
[2016-08-19] MEDS: cloNIDine HCl 0.1 MG TABLET PO SCH ×4 (08:12→20:42)
[2016-08-19] MEDS: Famotidine 20 MG TABLET PO SCH ×2 (08:12→20:43)
[2016-08-19] MEDS: clonazePAM 1 MG TABLET PO SCH ×2 (08:12→20:43)
--- NOTE | 2016-08-19 12:55 | Internal Med Progress Note ---
Date of Encounter: 08/19/16 Time of Encounter: 12:53 - Assessment and plan (1) Acute exacerbation of chronic obstructive airways disease Current Visit: No Status: Acute Assessment and plan: Patient stating she did not feels if she was ready for discharge last week. She also states that when it rains outside, that she simply cannot breathe. She states that she still feels slightly better than yesterday but she is nowhere near back to her baseline. Continue bronchodilators, methylprednisolone , mucolytic's. Chest x-ray negative. Patient denies productive cough. No increased need for oxygen, we will continue to monitor. Increased dyspnea during brain would potentially be consistent with an asthmatic component to her lung disease, recommend follow-up outpatient with auditor appraiser. ITS Impressions Chest X-Ray 08/17/16 11:22 IMPRESSION: Stable appearance of the chest without evidence of acute cardiopulmonary disease. D/ / Alcides Ontiveros MD / Alcides Ontiveros MD Interpreting Provider: Alcides Ontiveros MD 08/19/2016 Patient still occasional shortness of breath. She is presently on antibiotics/steroids/bronchodilator. We will continue to monitor her closely. Plan discussed with the patient and she agrees for the same (2) Hypertension Current Visit: Yes Status: Acute Assessment and plan: Patient's blood pressure was elevated this morning it was about 200-100. Home medications resumed. Patient was blood pressure is now trending down Qualifiers: Hypertension type: essential hypertension Qualified Code(s): I10 - Essential (primary) hypertension (3) Diabetes mellitus Current Visit: No Status: Chronic Assessment and plan: Moderately controlled with recent A1c of 8.5%. Continue sliding scale while admitted. Qualifiers: Diabetes mellitus type: type 2 Diabetes mellitus complication status: with hyperglycemia Diabetes mellitus intermediate accountant insulin use: with m[facility]p use Qualified Code(s): E11.65 - Type 2 diabetes mellitus with hyperglycemia; Z79.4 - intermediate school teacher (current) 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 (4) Obesity (BMI 30.0-34.9) Current Visit: No Status: Chronic Assessment and plan: Vital get benefit from outpatient bariatric surgery (5) DVT prophylaxis Current Visit: No Status: Acute Assessment and plan: Subcutaneous Lovenox ordered - Subjective Interval history: Patient seen and examined. Chart reviewed. Patient complains that she still occasionally short of breath. Patient denies chest pain, palpitations, nausea, vomiting, abdominal pain or diarrhea. - Constitutional Vitals: Temp Pulse Resp BP Pulse Ox 98.0 F 102 15 146/97 95 08/19/16 12:04 08/19/16 12:04 08/19/16 12:04 08/19/16 12:04 08/19/16 12:04 General appearance: Present: mild distress, A&O X 3, pleasant, answers questions appropriately - Head Head exam: Present: atraumatic, normocephalic - Eye Eye exam: Present: PERRL, conjuntiva pink, sclera anicteric Pupils: Present: PERRL - Neck Neck exam general surgery: Present: supple, trachea midline. Absent: lymphadenopathy - Respiratory Respiratory exam: Present: CTAB. Absent: accessory muscle use, rales, rhonchi, wheezes - Cardiovascular Cardiovascular exam: Present: RRR, +S1, +S2. Absent: diastolic murmur, gallop, rubs, systolic murmur - GI/Abdominal GI/Abdominal exam: Present: normal bowel sounds, soft, no peritoneal signs. Absent: distended, tenderness - Extremities Exam Extremities exam: Present: warm, radial pulses palpable and symetrical. Absent : calf tenderness, cyanotic, pedal edema - Neurological Exam Neurological exam: Present: CN II-XII intact, oriented X3, no focal deficits. Absent: pronater drift, facial droop, speech deficit - Skin Skin exam: Present: dry, intact Internal Medicine: Result - Labs CBC & Chem 7: 08/19/16 03:11 08/19/16 03:11 Labs: Short CBC 08/19/16 Range/Units 03:11 WBC 9.4 (4.3-11.1) K/mcL Hgb 11.3 L (11.5-15.4) g/dL Hct 35.1 L (35.3-44.9) % Plt Count 322 (140-400) K/mcL Neutrophils # 7.7 (1.6-8.9) K/mcL BMP 08/19/16 03:11 Sodium 136 Potassium 5.1 H D Chloride 100 Carbon Dioxide 25 BUN 28 H Creatinine 0.87 Glucose 317 H Calcium 8.9 - ABG Interpretation ABG results: PT/INR, D-dimer PT 11.3 Seconds (9.4-12.1) 08/17/16 11:40 Consult Discharge Plan - Plan Referrals: Domitila Lau MD [Primary Care Provider] -
[2016-08-19] MEDS: Insulin DETEMIR 100 UNIT/ML X5UNITS SQ SCH (20:43)
[2016-08-20] MEDS: MethylPREDNISolone 40 MG/ML VIAL IVP SCH ×5 (00:06→23:14)
[2016-08-20] MEDS: Ipratropium/Albuterol Neb 3 ML IH SCH ×6 (03:05→23:07)
[2016-08-20 04:37] LABS: Hematocrit 35.7 % (35.3-44.9); Hemoglobin 11.2 g/dL (11.5-15.4); Mean Corpuscular HGB Conc 31.4 g/dL (31.6-35.5); Mean Corpuscular Hemoglobin 29.9 pg (28.0-33.3); Mean Corpuscular Volume 95.2 fL (83.0-100.0); Mean Platelet Volume 10.5 fL (9.4-12.4); Nucleated Red Blood Cells 0.3 /100 WBC (0); Platelet Count 324 K/mcL (140-400); Red Blood Count 3.75 M/mcL (3.82-4.97); Red Cell Distribution Width 15.6 % (11.5-14.5)
[2016-08-20] MEDS: Ondansetron 4 MG/2 ML VIAL IVP PRN ×2 (04:48→18:11)
[2016-08-20 05:07] LABS: Lymphocytes # 1.4 K/mcL (0.6-4.6); Monocytes # 0.7 K/mcL (0.0-1.3); Neutrophils # 9.6 K/mcL (1.6-8.9)
[2016-08-20 05:08] LABS: Platelet Estimate Normal (Normal); Toxic Granulation Present (Not Present)
[2016-08-20 05:09] LABS: Hypersegmented Neutrophils Present (Not Present)
[2016-08-20] MEDS: *HR* Enoxaparin 40 MG/0.4 ML SYRINGE SQ SCH (06:31)
[2016-08-20 07:23] LABS: Alanine Aminotransferase 15 Units/L (0-55); Albumin 3.4 g/dL (3.5-5.0); Albumin/Globulin Ratio 1.1 (1.1-2.2); Alkaline Phosphatase 105 Units/L (38-126); Aspartate Amino Transferase 8 Units/L (5-34); BUN/Creatinine Ratio 32 (6-26); Bilirubin,Total 0.2 mg/dL (0.2-1.2); Blood Urea Nitrogen 28 mg/dL (7-20); Calcium 9.3 mg/dL (8.6-10.8); Carbon Dioxide 27 mEq/L (19-29); Chloride 96 mEq/L (98-109); Glucose 334 mg/dL (70-99); Osmolality,Calculated 301 (280-300); Potassium 4.7 mEq/L (3.5-4.5); Sodium 136 mEq/L (136-145); Total Protein 6.4 g/dL (6.0-8.3); eGFR For African Americans > 60 (> 60); eGFR For Non-African Americans > 60 (> 60)
[2016-08-20] MEDS: clonazePAM 1 MG TABLET PO SCH ×2 (07:42→21:18)
[2016-08-20] MEDS: Famotidine 20 MG TABLET PO SCH ×2 (07:42→21:18)
[2016-08-20] MEDS: Aspirin 81 MG TAB.CHEW PO SCH (07:43)
[2016-08-20] MEDS: Losartan/HCTZ 50-12.5 TABLET PO SCH (07:43)
[2016-08-20] MEDS: cloNIDine HCl 0.1 MG TABLET PO SCH ×4 (07:43→21:18)
[2016-08-20] MEDS: Insulin LISPRO 300 UNITS/3 ML VIAL SQ SCH ×4 (07:43→21:18)
[2016-08-20] MEDS: *HR* OxyCODONE Immed Rel 5 MG TABLET PO PRN (16:26)
--- NOTE | 2016-08-20 16:44 | Internal Med Progress Note ---
Date of Encounter: 08/20/16 Time of Encounter: 16:42 - Assessment and plan (1) Acute exacerbation of chronic obstructive airways disease Current Visit: No Status: Acute Assessment and plan: Patient stating she did not feels if she was ready for discharge last week. She also states that when it rains outside, that she simply cannot breathe. She states that she still feels slightly better than yesterday but she is nowhere near back to her baseline. Continue bronchodilators, methylprednisolone , mucolytic's. Chest x-ray negative. Patient denies productive cough. No increased need for oxygen, we will continue to monitor. Increased dyspnea during brain would potentially be consistent with an asthmatic component to her lung disease, recommend follow-up outpatient with county commissioner. ITS Impressions Chest X-Ray 08/17/16 11:22 IMPRESSION: Stable appearance of the chest without evidence of acute cardiopulmonary disease. D/ / Alcides Ontiveros MD / Alcides Ontiveros MD Interpreting Provider: Alcides Ontiveros MD 08/19/2016 Patient still occasional shortness of breath. She is presently on antibiotics/steroids/bronchodilator. We will continue to monitor her closely. Plan discussed with the patient and she agrees for the same 08/20/2016 Patient still complains of tightness in her chest. We will continue antibiotics/steroids/bronchodilators. Likely home tomorrow (2) Hypertension Current Visit: Yes Status: Acute Assessment and plan: Patient's blood pressure was elevated this morning it was about 200-100. Home medications resumed. Patient was blood pressure is now trending down Qualifiers: Hypertension type: essential hypertension Qualified Code(s): I10 - Essential (primary) hypertension (3) Diabetes mellitus Current Visit: No Status: Chronic Assessment and plan: Moderately controlled with recent A1c of 8.5%. Continue sliding scale while admitted. 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 Chart reviewed. Patient complains that she still occasionally short of breath. Patient denies chest pain, palpitations, nausea, vomiting, abdominal pain or diarrhea. 08/20/2016 Seen and examined. Chart reviewed. Patient still complains of tightness in her chest. patient denies chest pain, shortness of breath, abdominal pain, nausea or vomiting - Constitutional Vitals: Temp Pulse Resp BP Pulse Ox 97.6 F 116 18 175/90 98 08/20/16 14:53 08/20/16 14:53 08/20/16 16:29 08/20/16 14:53 08/20/16 16:29 General appearance: Present: mild distress, A&O X 3, pleasant, answers questions appropriately - Head Head exam: Present: atraumatic, normocephalic - Eye Eye exam: Present: PERRL, conjuntiva pink, sclera anicteric Pupils: Present: PERRL - Neck Neck exam general surgery: Present: supple, trachea midline. Absent: lymphadenopathy - Respiratory Respiratory exam: Present: CTAB. Absent: accessory muscle use, rales, rhonchi, wheezes - Cardiovascular Cardiovascular exam: Present: RRR, +S1, +S2. Absent: diastolic murmur, gallop, rubs, systolic murmur - GI/Abdominal GI/Abdominal exam: Present: normal bowel sounds, soft, no peritoneal signs. Absent: distended, tenderness - Extremities Exam Extremities exam: Present: warm, radial pulses palpable and symetrical. Absent : calf tenderness, cyanotic, pedal edema - Neurological Exam Neurological exam: Present: CN II-XII intact, oriented X3, no focal deficits. Absent: pronater drift, facial droop, speech deficit - Skin Skin exam: Present: dry, intact Internal Medicine: Result - Labs CBC & Chem 7: 08/20/16 03:33 08/20/16 05:34 Labs: Short CBC 08/20/16 Range/Units 03:33 WBC 11.7 H (4.3-11.1) K/mcL Hgb 11.2 L (11.5-15.4) g/dL Hct 35.7 (35.3-44.9) % Plt Count 324 (140-400) K/mcL Neutrophils # 9.6 H (1.6-8.9) K/mcL BMP 08/20/16 05:34 Sodium 136 Potassium 4.7 H Chloride 96 L Carbon Dioxide 27 BUN 28 H Creatinine 0.87 Glucose 334 H Calcium 9.3 Liver Function 08/20/16 Range/Units 05:34 Total Bilirubin 0.2 (0.2-1.2) mg/dL AST 8 (5-34) Units/L ALT 15 (0-55) Units/L Alkaline Phosphatase 105 (38-126) Units/L Albumin 3.4 L (3.5-5.0) g/dL - ABG Interpretation ABG results: PT/INR, D-dimer PT 11.3 Seconds (9.4-12.1) 08/17/16 11:40 Consult Discharge Plan - Plan Referrals: Domitila Lau MD [Primary Care Provider] -
[2016-08-20] MEDS: Insulin DETEMIR 100 UNIT/ML X5UNITS SQ SCH (21:19)
[2016-08-21] MEDS: Ipratropium/Albuterol Neb 3 ML IH SCH ×2 (03:40→07:35)
[2016-08-21] MEDS: *HR* Enoxaparin 40 MG/0.4 ML SYRINGE SQ SCH (05:46)
[2016-08-21] MEDS: MethylPREDNISolone 40 MG/ML VIAL IVP SCH (05:47)
--- NOTE | 2016-08-21 07:37 | Discharge Summary ---
Date of Encounter: 08/21/16 Time of Encounter: 07:35 - Discharge Diagnosis (1) Acute exacerbation of chronic obstructive airways disease Priority: Primary Status: Acute (2) Hypertension Priority: Secondary Status: Acute Qualifiers: Hypertension type: essential hypertension Qualified Code(s): I10 - Essential (primary) hypertension (3) Diabetes mellitus Priority: Secondary Status: Chronic Qualifiers: Diabetes mellitus type: type 2 Diabetes mellitus complication status: with hyperglycemia Diabetes mellitus senior living insulin use: with senior living use Qualified Code(s): E11.65 - Type 2 diabetes mellitus with hyperglycemia; Z79.4 - skilled nursing (current) 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 (4) Obesity (BMI 30.0-34.9) Priority: Secondary Status: Chronic (5) DVT prophylaxis Priority: Secondary Status: Acute - Discharge Medications Prescriptions: Levofloxacin [Levaquin] 500 mg PO QDPC #2 tablet Home Medications: Pantoprazole Sodium [Protonix] 40 mg PO DAILY 02/10/15 [History] Losartan/Hydrochlorothiazide [Losartan-Hctz 100-25 mg Tab] 1 tab PO DAILY [History] Ipratropium/Albuterol Neb [Duoneb] 3 ml IH Q6HR PRN #90 vial.neb 05/02/16 [Rx] cloNIDine HCl [Clonidine HCl] 0.3 mg PO QID 05/16/16 [History] Aspirin 81 mg PO DAILY 07/19/16 [History] Oxycodone HCl [Oxaydo] 5 mg PO BID PRN 07/19/16 [History] Oxygen 3 l .ROUTE AD 07/19/16 [History] Ranitidine HCl [Zantac] 150 mg PO BID 07/19/16 [History] clonazePAM [Klonopin] 1 mg PO BID 07/31/16 [History] Insulin Glargine [Lantus] 22 unit SQ HS 08/10/16 [History] Insulin LISPRO [HumaLOG] 0 units SQ TIDWM 08/10/16 [History] Roflumilast [Daliresp] 500 mcg PO DAILY 08/10/16 [History] Umeclidinium Brm/Vilanterol Tr [Anoro Ellipta 62.5-25 Mcg INH] 1 puff IH BID [History] predniSONE [PredniSONE] 40 mg PO DAILY #7 tablet 08/13/16 [Rx] Levofloxacin [Levaquin] 500 mg PO QDPC #2 tablet 08/21/16 [Rx] Allergies/Adverse Reactions: Allergies NSAIDS (Non-Steroidal Anti-Inflamma Allergy (Unknown, Verified 08/10/16 19:01) See Comments Listed on [facility]W under allergies- Unknown Reaction Penicillins Allergy (Unknown, Verified 08/10/16 19:01) Hives lisinopril Adverse Reaction (Verified 08/10/16 19:01) Cough tramadol Adverse Reaction (Verified 08/10/16 19:01) Nausea Date of admission: 08/17/16 16:48 Primary care physician: Domitila Lau MD Consults: 08/18/16 11:39 Consult to Power Hammer Operator [CONS] Routine Reason for SW Consult: Readmission Discharging clinician: Delmar Blank - Patient Status Disposition: Home, Self-Care Condition: Fair Functional capacity at discharge: independent ambulation Overall status at discharge: patient is progressing back to baseline - Discharge Instructions Follow Up With: Domitila Lau MD [Primary Care Provider] - - Diet and Activity Activity: increase activity as tolerated Diet: diabetic diet Interval History: Ms. Ren is a 56 year old female past mother history of COPD oxygen dependent diabetes GERD obstructive sleep apnea hypertension patient had a recent hospitalization she was discharged to his hospital last after experiencing exacerbation of COPD. She said since that discharge she is continued to experience increased shortness of breath which occurs at rest as well as during exertion. She denies any cough or fever denies any sick contacts. She does express orthopnea and has been sleeping in her chair. She is presently on 3 L nasal cannula home she has been using breathing treatments without any relief of her symptoms. She states she has been taking her medications as prescribed. She describes having lung pain, which occurs during inspiration and is relieved with her pain medication. She presented to the ER with the above complaints. According to ER records upon presentation patient's oxygen saturation was 93 on 3 L she was tachycardic she had some hypertension patient was given clonidine as well as Klonopin breathing treatments and IV steroids which did slightly improve her respiratory state. She has been admitted for further workup and evaluation. Presently patient does not appear to be any respiratory distress she denies any chest pain however does admit to lung pain which she states occurs on inspiration. Heart sounds are regular S1 and S2 with no rubs clicks gallops murmurs noted lungs sounds are diminished throughout lung salazar. Abdomen soft nontender no lower extremity swelling noted. Blood pressure is slightly elevated 173/93 which patient states is improved. Hospital course: Patient was hospitalized. She was started on intravenous antibiotics/steroids and inhaled bronchodilators. Patient responded well to this treatment. Considering the past previous admissions it was noted that patient takes usually 2 or 3 days to get better, severe acute exacerbation of COPD. Patient received antibiotics/steroids/bronchodilators for 3 days. Patient started feeling better. Patient claims that she can breathe well and unlikely she will come back in next month to hospital. Patient is requesting to go home today. Plan: Home today. Levofloxacin 500 mg once a day for 2 days. I recommended patient to resume her prednisone for a total of 7 days. Patient does have steroids at home and she does not need a prescription for same. Home medications resumed. I recommended patient to follow up with primary care physician in one to 2 weeks. I recommended patient to follow up with her specialist in next 1-2 weeks. All questions answered. At the time of discharge patient does not have any question, concern, updates or recommendations. - Time Spent with Patient Total time spent providing and/or coordinating discharge services: - Constitutional Vitals: Temp Pulse Resp BP Pulse Ox 98.2 F 92 16 164/82 92 08/21/16 03:23 08/21/16 03:23 08/21/16 03:23 08/21/16 03:23 08/21/16 03:23 General appearance: Present: mild distress, A&O X 3, pleasant, answers questions appropriately - Head Head exam: Present: atraumatic, normocephalic - Eye Eye exam: Present: PERRL, conjuntiva pink, sclera anicteric Pupils: Present: PERRL - Neck Neck exam general surgery: Present: supple, trachea midline. Absent: lymphadenopathy - Respiratory Respiratory exam: Present: CTAB. Absent: accessory muscle use, rales, rhonchi, wheezes - Cardiovascular Cardiovascular exam: Present: RRR, +S1, +S2. Absent: diastolic murmur, gallop, rubs, systolic murmur - GI/Abdominal GI/Abdominal exam: Present: normal bowel sounds, soft, no peritoneal signs. Absent: distended, tenderness - Extremities Exam Extremities exam: Present: warm, radial pulses palpable and symetrical. Absent : calf tenderness, cyanotic, pedal edema - Neurological Exam Neurological exam: Present: CN II-XII intact, oriented X3, no focal deficits. Absent: pronater drift, facial droop, speech deficit - Skin Skin exam: Present: dry, intact
[2016-08-21 08:04] VITALS: BP 183/81
[2016-08-21] MEDS: Losartan/HCTZ 50-12.5 TABLET PO SCH (08:06)
[2016-08-21] MEDS: Famotidine 20 MG TABLET PO SCH (08:07)
[2016-08-21] MEDS: Aspirin 81 MG TAB.CHEW PO SCH (08:07)
[2016-08-21] MEDS: Insulin LISPRO 300 UNITS/3 ML VIAL SQ SCH (08:07)
[2016-08-21] MEDS: cloNIDine HCl 0.1 MG TABLET PO SCH (08:07)
[2016-08-21] MEDS: clonazePAM 1 MG TABLET PO SCH (08:07)
[2016-08-21] MEDS: *HR* OxyCODONE Immed Rel 5 MG TABLET PO PRN (08:21)
== END 2016-08-21 09:47 | disposition home or self-care (01) ==
LOC: 3BNU 11:11 → EMEROO 11:11 → 3BNU 15:38
PROVIDERS: ADMIT Internal Medicine; ATTEND Nurse Practitioner Family

== ENCOUNTER 2016-09-18 22:40 | Inpatient (IN) ==
[2016-09-18] MEDS ORDERED: methylPREDNISolone 125 MG/2 ML VIAL IVP ONE (22:51)
[2016-09-18] MEDS ORDERED: Ipratropium/Albuterol Neb 3 ML IH ONE (22:51)
--- NOTE | 2016-09-18 22:58 | Emergency Department Note ---
Disposition Clinical Impression: Acute exacerbation of chronic obstructive pulmonary disease Disposition: Admitted As Inpatient Condition: Fair Time of Disposition: 00:53 SOB HPI - General Chief Complaint: ED Shortness of Breath/Dyspnea Stated Complaint: LESTER/fever Time Seen by Provider: 09/18/16 22:45 Source: patient, EMS Mode of arrival: EMS Limitations: no limitations Nursing Notes Reviewed: Yes Vital Signs Reviewed: Yes - History of Present Illness 48-year-old female history of COPD on 3 L at home, multiple recent admissions for COPD, presents by EMS for shortness of breath productive cough, fevers, congestion, states that she thinks that she has pneumonia again. Patient has had increased sputum in her cough. Has some chest tightness with inspiration, that she describes as 3/10, worse with deep breaths. Patient denies weight changes, nausea vomiting diarrhea constipation or diaphoresis. She denies hematuria, hematochezia or Hemoptysis. 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 (ago): minute(s) Severity: mild Consistency/Duration: constant Improves with: nothing Worsens with: nothing Known history of: COPD Associated symptoms: Reports: denies other symptoms, pain with inspiration, fever, cough, wheezing, sputum production. Denies: chest pain, lower extremity pain Treatment prior to arrival: oxygen, bronchodilator - Related Data Home Medications Medication Instructions Recorded Confirmed Pantoprazole Sodium [Protonix] 40 mg PO DAILY 02/10/15 08/17/16 Losartan/Hydrochlorothiazide 1 tab PO DAILY 05/03/15 09/19/16 [Losartan-Hctz 100-25 mg Tab] cloNIDine HCl [Clonidine HCl] 0.3 mg PO QID 05/16/16 09/19/16 Aspirin 81 mg PO DAILY 07/19/16 09/19/16 Oxycodone HCl [Oxaydo] 5 mg PO BID PRN 07/19/16 09/19/16 Oxygen 3 l .ROUTE AD 07/19/16 09/19/16 Ranitidine HCl [Zantac] 150 mg PO BID 07/19/16 09/19/16 clonazePAM [Klonopin] 1 mg PO BID 07/31/16 09/19/16 Insulin Glargine [Lantus] 22 unit SQ HS 08/10/16 09/19/16 Insulin LISPRO [HumaLOG] 0 units SQ TIDWM 08/10/16 09/19/16 Roflumilast [Daliresp] 500 mcg PO DAILY 08/10/16 09/19/16 Umeclidinium Brm/Vilanterol Tr 1 puff IH BID 08/10/16 08/17/16 [Anoro Ellipta 62.5-25 Mcg INH] Previous Rx's Medication Instructions Recorded Ipratropium/Albuterol Neb [Duoneb] 3 ml IH Q6HR PRN #90 vial.neb 05/02/16 predniSONE [PredniSONE] 40 mg PO DAILY #7 tablet 08/13/16 Levofloxacin [Levaquin] 500 mg PO QDPC #2 tablet 08/21/16 Allergies Allergy/AdvReac Type Severity Reaction Status Date / Time NSAIDS (Non-Steroidal Allergy Unknown See Verified 08/10/16 19:01 Anti-Inflamma Comments Penicillins Allergy Unknown Hives Verified 08/10/16 19:01 lisinopril AdvReac Cough Verified 08/10/16 19:01 tramadol AdvReac Nausea Verified 08/10/16 19:01 Review of Systems: 10 Point ROS was performed and negative except as per below or as documented in HPI. Constitutional: +fever Eyes: Denies: eye pain ENT: Denies: nasal congestion CV: Denies: chest pain Resp: + cough, wheeze Denies: hemoptysis GI: Denies: abdominal pain, hematochezia Denies: dysuria, hematuria MSK: Denies: back pain, neck pain, extremity pain Skin: Denies: new rashes Neuro: Denies: paresthesias or weakness All systems ED: reviewed and negative except as stated. Review of Systems: As Per HPI Past Medical History - Past Medical History Attestation: Yes The following information was validated with the patient. 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 CV: sinus tachycardia, no m/g/r GI: normal inspection, soft, no guarding or rigidity Back: normal inspection, no tenderness to palpation Neuro: A&O3, CNII-XII grossly intact, VIRGEN Skin: on limited exam, skin intact with no rashes or lesions - General Limitations: no limitations General appearance: alert, in no apparent distress Course Course Narrative: 56-year-old female with probable acute exacerbation of COPD, given febrile in EMS, ordering do nebs, slight Medrol, CBC BMP troponin, blood cultures, lactate - Reevaluation(s) Reevaluation #1: Improvement after duo nebs and Solu-Medrol, Admitted to Dr. Kamara to for COPD exacerbation, add a d-dimer, we will reevaluate this prior to sending the patient to the floor make sure this is drawn to rule out for pulmonary embolus although well score is low, he is tachycardic. Time: 00:52 Reevaluation #2: Patient D-Dimer 582 which age adjusted cutoff 580 is 2 greater so CTA Chest ordered patient stable, will transfer to floor bed, communicated to Dr Kamara via Dr Rousseau resident that patient to get CTA and go to floor for AECOPD, pending CTA results for PE. Vital Signs Temperature 99.8 F H 09/18/16 22:44 Pulse Rate 139 09/18/16 22:44 Respiratory Rate 16 09/18/16 22:44 Blood Pressure 133/102 09/18/16 22:44 O2 Sat by Pulse Oximetry 92 09/18/16 22:44 Temperature 101.2 F H 09/19/16 01:47 Pulse Rate 137 09/19/16 01:47 Respiratory Rate 20 09/19/16 01:47 Blood Pressure 153/77 09/19/16 01:47 O2 Sat by Pulse Oximetry 93 09/19/16 01:47 Oxygen Delivery Oxygen Delivery Nasal Cannula Shortness of Breath/Dyspnea - Differential Diagnosis Likely: acute exacerbation of chronic obstructive airways disease, pneumonia, pulmonary embolism - Medical Records Medical records reviewed: Yes I reviewed the patient's medical records. - Lab Data Lab results reviewed: Yes I reviewed the patient's lab results. Result diagrams: 09/18/16 23:00 09/18/16 23:00 Lab Results 09/18/16 09/18/16 09/18/16 Range/Units 23:00 23:00 23:00 WBC 8.4 (4.3-11.1) K/mcL RBC 3.94 (3.82-4.97) M/mcL Hgb 11.5 (11.5-15.4) g/dL Hct 35.7 (35.3-44.9) % MCV 90.6 (83.0-100.0) fL MCH 29.2 (28.0-33.3) pg MCHC 32.2 (31.6-35.5) g/dL RDW 14.9 H (11.5-14.5) % Plt Count 359 (140-400) K/mcL MPV 10.0 (9.4-12.4) fL Immature Gran % 2.4 (0-4) % Seg Neutrophils % 71.1 % Lymphocytes % 16.3 % Monocytes % 9.6 % Eosinophils % 0.2 % Basophils % 0.4 % Neutrophils # 6.0 (1.6-8.9) K/mcL Lymphocytes # 1.4 (0.6-4.6) K/mcL Monocytes # 0.8 (0.0-1.3) K/mcL Eosinophils # 0.0 (0.0-0.6) K/mcL Basophils # 0.0 (0.0-0.2) K/mcL D-Dimer (0-500) ng/mLFEU Sodium 137 (136-145) mEq/L Potassium 2.7 L (3.5-4.5) mEq/L Chloride 95 L (98-109) mEq/L Carbon Dioxide 30 H (19-29) mEq/L BUN 14 (7-20) mg/dL Creatinine 0.70 (0.57-1.11) mg/dL Est GFR ( Amer) > 60 (> 60) Est GFR (Non-Af Amer) > 60 (> 60) BUN/Creatinine Ratio 20 (6-26) Glucose 138 H (70-99) mg/dL Calculated Osmolality 287 (280-300) Lactic Acid 1.0 (0.5-2.2) mmol/L Calcium 9.1 (8.6-10.8) mg/dL Troponin I (0-0.03) ng/mL B-Natriuretic Peptide (0-100) pg/mL 09/18/16 09/18/16 09/18/16 Range/Units 23:00 23:00 23:00 WBC (4.3-11.1) K/mcL RBC (3.82-4.97) M/mcL Hgb (11.5-15.4) g/dL Hct (35.3-44.9) % MCV (83.0-100.0) fL MCH (28.0-33.3) pg MCHC (31.6-35.5) g/dL RDW (11.5-14.5) % Plt Count (140-400) K/mcL MPV (9.4-12.4) fL Immature Gran % (0-4) % Seg Neutrophils % % Lymphocytes % % Monocytes % % Eosinophils % % Basophils % % Neutrophils # (1.6-8.9) K/mcL Lymphocytes # (0.6-4.6) K/mcL Monocytes # (0.0-1.3) K/mcL Eosinophils # (0.0-0.6) K/mcL Basophils # (0.0-0.2) K/mcL D-Dimer 582 H (0-500) ng/mLFEU Sodium (136-145) mEq/L Potassium (3.5-4.5) mEq/L Chloride (98-109) mEq/L Carbon Dioxide (19-29) mEq/L BUN (7-20) mg/dL Creatinine (0.57-1.11) mg/dL Est GFR ( Amer) (> 60) Est GFR (Non-Af Amer) (> 60) BUN/Creatinine Ratio (6-26) Glucose (70-99) mg/dL Calculated Osmolality (280-300) Lactic Acid (0.5-2.2) mmol/L Calcium (8.6-10.8) mg/dL Troponin I 0.00 (0-0.03) ng/mL B-Natriuretic Peptide 37 (0-100) pg/mL - Radiology Data Radiology results reviewed: Yes I reviewed the patient's radiology results. Chest X-Ray 09/18/16 22:51 IMPRESSION: 1. No acute cardiopulmonary abnormality. 2. Emphysema. D/ / Nikunj Garcia MD / Nikunj Garcia MD Interpreting Provider: Nikunj Garcia MD - EKG Data EKG attestation: Yes I reviewed and interpreted this EKG. EKG shows normal: Reports: sinus rhythm (142 bpm LA 134 QRS [address] segment elevations or depressions. Sinus tachycardia.) Attestation Statement - Attestation Attestation: I examined this patient and my medical decision-making was reviewed with the Resident Physician. I agree with the documented findings, disposition and treatment plan as described except to the extent set forth below. Patient presents to the emergency department with a chief complaint of shortness of breath. Cough and congestion. Fever. Feels like prior episodes of pneumonia. On exam she is in no acute distress. She has decreased air exchange her lungs. High-pitched upper airway noises. She is speaking in full sentences. Plan. Septic workup. Temperature 102 per EMS. Patient to medical COPD exacerbation. Her d-dimer was slightly positive. She is admitted for CTA.
[2016-09-18 23:20] LABS: Basophils % 0.4 %; Eosinophils % 0.2 %; Hematocrit 35.7 % (35.3-44.9); Hemoglobin 11.5 g/dL (11.5-15.4); Immature Granulocytes % 2.4 % (0-4); Lymphocytes # 1.4 K/mcL (0.6-4.6); Lymphocytes % 16.3 %; Mean Corpuscular HGB Conc 32.2 g/dL (31.6-35.5); Mean Corpuscular Hemoglobin 29.2 pg (28.0-33.3); Mean Corpuscular Volume 90.6 fL (83.0-100.0); Monocytes # 0.8 K/mcL (0.0-1.3); Monocytes % 9.6 %; Platelet Count 359 K/mcL (140-400); Red Blood Count 3.94 M/mcL (3.82-4.97); Red Cell Distribution Width 14.9 % (11.5-14.5); Segmented Neutrophils % 71.1 %
[2016-09-18 23:33] LABS: BUN/Creatinine Ratio 20 (6-26); Blood Urea Nitrogen 14 mg/dL (7-20); Calcium 9.1 mg/dL (8.6-10.8); Carbon Dioxide 30 mEq/L (19-29); Chloride 95 mEq/L (98-109); Glucose 138 mg/dL (70-99); Osmolality,Calculated 287 (280-300); Potassium 2.7 mEq/L (3.5-4.5); Sodium 137 mEq/L (136-145); eGFR For African Americans > 60 (> 60); eGFR For Non-African Americans > 60 (> 60)
[2016-09-19] MEDS ORDERED: Ondansetron 4 MG/2 ML VIAL IVP ONE (00:29)
[2016-09-19] MEDS ORDERED: 0.9 % Sodium Chloride 1,000 ML IVC ONE (01:16)
--- NOTE | 2016-09-19 01:33 | Internal Med History&Physical ---
<Miguel Rousseau - Last Filed: 09/19/16 02:28> Date of Encounter: 09/19/16 Time of Encounter: 01:29 Assessment and Plan (1) Acute exacerbation of chronic obstructive pulmonary disease Current visit: Yes Status: Acute Patient has recurrent hospitalizations with COPD exacerbation likely from poor jail control We will start her on Levaquin 750 mg daily along with IV Solu-Medrol at 60 mg every 8 hours Support with supplemental oxygen, breathing treatments Blood cultures were collected in the ED, awaiting results Continue her home long-term control medication which may need adjusting upon discharge (2) Insulin dependent diabetes mellitus Current visit: Yes Status: Chronic Sugars were normal upon admission at 138 Will start on low dose SSI ACHS accuchecks A1c checked last month was 8.5% (3) Hypokalemia Current visit: No Status: Acute Patient presented with potassium of 2.7 and received 40 mg of replacement in ED We will administer another 40 mEq and recheck electrolytes morning, including magnesium and phosphorus (4) Hypertension Current visit: No Status: Chronic Diastolic pressures were slightly elevated upon admission We will continue patient on home clonidine and losartan/hydrochlorothiazide combination Qualifiers: Hypertension type: essential hypertension Qualified Code(s): I10 - Essential (primary) hypertension (5) Anxiety Current visit: No Status: Chronic Continue home Klonopin (6) DVT prophylaxis Current visit: No Status: Acute Heparin 5000 units BID Internal Medicine - H&P: HPI Chief complaint: shortness of breath Admitted From: Home Plans for Post Hospital Care: Home History of present illness: Ms. Ren is a 56 year old female who presents to emergency department with shortness of breath which worsens with exertion. She states it started yesterday when she was at rest around noontime. At that time she also developed a productive cough of light green sputum and had pain on inspiration and cough. She also reported having a fever which was measured and the EMS at 102, but resolved on its own once she reached the ER. She does have a history of COPD and is on 3 L of oxygen at home, and also has breathing treatments she uses as needed. She does have multiple admissions in the last few months for shortness of breath and had been on antibiotics and steroids for COPD exacerbation. Currently does not have any nausea, vomiting, diarrhea, hemoptysis. Patient denies any history of blood clots or cancers. Past Med Surg Social Fam HX - Past Medical History Medical history: asthma, COPD, diabetes, GERD, hyperlipidemia, hypertension, renal disease, other Psychiatric history: anxiety - Past Surgical History Surgical History: appendectomy, cholecystectomy, knee replacement, other - Social History Smoking Status: Former smoker Smokeless Tobacco Status: No Alcohol use: none Drug use: none - Family History Father Family Member Ethnicity: Non- Living Status: Hx Family Cardiac Disorders: Yes (atherrosclerosis) Mother Family Member Ethnicity: Non- Living Status: Still Living Hx Family Cardiac Disorders: Yes (Hypertension) Hx Family Respiratory Disorders: No Hx Family Cancer: No Hx Family GI Disorders: No Hx Family Endocrine Disorder: Yes (Diabetes mellitus) Hx Family Neuromuscular Disorders: No Hx Family Neurologic Disorders: No Hx Family HEENT Disorders: No Hx Family Autoimmune Disorders: No Internal Medicine - H&P: Meds Pantoprazole Sodium [Protonix] 40 mg PO DAILY 02/10/15 [History] Losartan/Hydrochlorothiazide [Losartan-Hctz 100-25 mg Tab] 1 tab PO DAILY [History] Ipratropium/Albuterol Neb [Duoneb] 3 ml IH Q6HR PRN #90 vial.neb 05/02/16 [Rx] cloNIDine HCl [Clonidine HCl] 0.3 mg PO QID 05/16/16 [History] Aspirin 81 mg PO DAILY 07/19/16 [History] Oxycodone HCl [Oxaydo] 5 mg PO BID PRN 07/19/16 [History] Oxygen 3 l .ROUTE AD 07/19/16 [History] Ranitidine HCl [Zantac] 150 mg PO BID 07/19/16 [History] clonazePAM [Klonopin] 1 mg PO BID 07/31/16 [History] Insulin Glargine [Lantus] 22 unit SQ HS 08/10/16 [History] Insulin LISPRO [HumaLOG] 0 units SQ TIDWM 08/10/16 [History] Roflumilast [Daliresp] 500 mcg PO DAILY 08/10/16 [History] Umeclidinium Brm/Vilanterol Tr [Anoro Ellipta 62.5-25 Mcg INH] 1 puff IH BID [History] predniSONE [PredniSONE] 40 mg PO DAILY #7 tablet 08/13/16 [Rx] Levofloxacin [Levaquin] 500 mg PO QDPC #2 tablet 08/21/16 [Rx] Allergies NSAIDS (Non-Steroidal Anti-Inflamma Allergy (Unknown, Verified 08/10/16 19:01) See Comments Listed on [facility] under allergies- Unknown Reaction Penicillins Allergy (Unknown, Verified 08/10/16 19:01) Hives lisinopril Adverse Reaction (Verified 08/10/16 19:01) Cough tramadol Adverse Reaction (Verified 08/10/16 19:01) Nausea All Systems PM: A 10-system review of systems was performed and is negative for pertinent findings except as documented above in the HPI. - Constitutional Constitutional: fever(s), no chills, no night sweats - EENT Eyes: no change in vision, no discharge, no pain, no photophobia Ears: no ear discharge, no ear pain, no tinnitus Nose, mouth and throat: no dysphagia, no nasal discharge, no neck pain, no sore throat - Cardiovascular Cardiovascular ROS IM: dyspnea, dyspnea on exertion, no chest pain, no diaphoresis, no lightheadedness, no palpitations, no syncope - Respiratory Respiratory: cough, dyspnea, dyspnea on exertion, wheezing, pain on inspiration , chest congestion, change in phlegm color, pain with cough, no excessive phlegm production - Gastrointestinal Gastrointestinal: no abdominal pain, no diarrhea, no hematemesis, no hematochezia, no melena, no nausea, no vomiting - Genitourinary Genitourinary: no change in urinary stream, no dysuria, no flank pain, no hematuria - Musculoskeletal Musculoskeletal ROS IM: no numbness, no tingling - Integumentary Integumentary IM: no rash, no unusual bruising - Neurological Neurological ROS: no confusion, no convulsions, no focal weakness, no numbness, no tingling, no tremor(s) - Hematologic/Lymphatic Hematologic/Lymphatic: no easy bruising - Constitutional Vitals: Temp Pulse Resp BP Pulse Ox 99.8 F H 139 18 133/102 93 09/18/16 22:44 09/18/16 22:44 09/18/16 23:13 09/18/16 22:44 09/18/16 23:13 General appearance: Present: cooperative, pleasant, no acute distress, answers questions appropriately - Head Head exam: Present: atraumatic, normocephalic - Eye Eye exam: Present: PERRL, conjuntiva pink, sclera anicteric - Neck Neck exam general surgery: Present: supple, trachea midline. Absent: lymphadenopathy - Respiratory Respiratory exam: Present: wheezes. Absent: accessory muscle use, rales, rhonchi - Cardiovascular Cardiovascular exam: Present: +S1, +S2, tachycardia. Absent: diastolic murmur, gallop, rubs, systolic murmur - GI/Abdominal GI/Abdominal exam: Present: normal bowel sounds, soft, no peritoneal signs. Absent: distended, tenderness - Extremities Exam Extremities exam: Present: warm, radial pulses palpable and symetrical. Absent : calf tenderness, cyanotic, pedal edema - Neurological Exam Neurological exam: Present: alert, no focal deficits. Absent: facial droop, speech deficit - Skin Skin exam: Present: dry, intact Internal Med - H&P Results - Labs CBC & Chem 7: 09/18/16 23:00 09/18/16 23:00 Labs: Short CBC 09/18/16 Range/Units 23:00 WBC 8.4 (4.3-11.1) K/mcL Hgb 11.5 (11.5-15.4) g/dL Hct 35.7 (35.3-44.9) % Plt Count 359 (140-400) K/mcL Neutrophils # 6.0 (1.6-8.9) K/mcL BMP 09/18/16 23:00 Sodium 137 Potassium 2.7 L Chloride 95 L Carbon Dioxide 30 H BUN 14 Creatinine 0.70 Glucose 138 H Calcium 9.1 Cardiac Enzymes 09/18/16 Range/Units 23:00 Troponin I 0.00 (0-0.03) ng/mL - Impressions ITS Impressions Chest X-Ray 09/18/16 22:51 IMPRESSION: 1. No acute cardiopulmonary abnormality. 2. Emphysema. D/ / Nikunj Garcia MD / Nikunj Garcia MD Interpreting Provider: Nikunj Garcia MD <Stuart Kamara - Last Filed: 09/19/16 06:09> Date of Encounter: 09/19/16 Internal Medicine - H&P: HPI History of present illness: Ms. Ren is a 56 year old female All Systems PM: A 10-system review of systems was performed and is negative for pertinent findings except as documented above in the HPI. - Constitutional Vitals: Temp Pulse Resp BP Pulse Ox 99.4 F 122 16 122/72 94 09/19/16 04:02 09/19/16 04:02 09/19/16 04:21 09/19/16 04:02 09/19/16 04:21 Internal Med - H&P Results - Labs CBC & Chem 7: 09/19/16 03:56 09/19/16 03:56 Labs: Short CBC 09/19/16 Range/Units 03:56 WBC 7.2 (4.3-11.1) K/mcL Hgb 11.4 L (11.5-15.4) g/dL Hct 36.1 (35.3-44.9) % Plt Count 345 (140-400) K/mcL Neutrophils # 6.5 (1.6-8.9) K/mcL BMP 09/19/16 03:56 Sodium 134 L Potassium 3.5 Chloride 94 L Carbon Dioxide 30 H BUN 14 Creatinine 0.77 Glucose 274 H Calcium 8.9 - Attending Attestation I examined this patient and my medical decision-making was reviewed with the Resident Physician, Dr. Rousseau. I agree with the documented findings, disposition and treatment plan as described except to the extent set forth below. I have independently obtained history and examined the patient and my findings are summarized below: Patient appears to and having moderate respiratory discomfort. Heart is tachycardic S1 and S2. Lungs are diminished. Plan: COPD exacerbation: We will treat her with Levaquin, DuoNeb and Solu- Medrol. Given chest pain and tachycardia and history of blood clots I obtained d-dimer which was positive. We will follow-up with a CT angiogram to rule out PE.
[2016-09-19] MEDS ORDERED: Albuterol 2.5 MG/3 ML NEBULIZER IH PRN ×2 (02:17→14:07)
[2016-09-19] MEDS ORDERED: D5% in Water 1,000 ML IVC PRN (02:17)
[2016-09-19] MEDS ORDERED: *HR* Dextrose 50 % in Water (Syg) 50 ML SYRINGE IVP PRN (02:17)
[2016-09-19] MEDS ORDERED: Dextrose Gel 15 GM PO PRN ×2 (02:17)
[2016-09-19] MEDS ORDERED: Ondansetron 4 MG/2 ML VIAL IVP PRN (02:17)
[2016-09-19] MEDS ORDERED: Naloxone 0.4 MG/ML INJ IVP PRN (02:17)
[2016-09-19] MEDS ORDERED: *HR* OxyCODONE Immed Rel 5 MG TABLET PO PRN (02:24)
[2016-09-19] MEDS ORDERED: Ipratropium/Albuterol Neb 3 ML IH PRN (02:24)
[2016-09-19] MEDS: Acetaminophen 325 MG TABLET PO PRN (02:46)
[2016-09-19] MEDS: Ipratropium/Albuterol Neb 3 ML IH SCH ×4 (04:21→20:54)
[2016-09-19 04:36] LABS: Hematocrit 36.1 % (35.3-44.9); Hemoglobin 11.4 g/dL (11.5-15.4); Mean Corpuscular HGB Conc 31.6 g/dL (31.6-35.5); Mean Corpuscular Hemoglobin 29.4 pg (28.0-33.3); Mean Platelet Volume 9.8 fL (9.4-12.4); Monocytes # 0.1 K/mcL (0.0-1.3); Platelet Count 345 K/mcL (140-400); Red Blood Count 3.88 M/mcL (3.82-4.97); Red Cell Distribution Width 14.7 % (11.5-14.5)
[2016-09-19 04:52] LABS: BUN/Creatinine Ratio 18 (6-26); Blood Urea Nitrogen 14 mg/dL (7-20); Calcium 8.9 mg/dL (8.6-10.8); Carbon Dioxide 30 mEq/L (19-29); Chloride 94 mEq/L (98-109); Glucose 274 mg/dL (70-99); Magnesium 2.1 mg/dL (1.6-2.6); Osmolality,Calculated 288 (280-300); Phosphorous 2.9 mg/dL (2.3-4.7); Potassium 3.5 mEq/L (3.5-4.5); Sodium 134 mEq/L (136-145); eGFR For African Americans > 60 (> 60); eGFR For Non-African Americans > 60 (> 60)
[2016-09-19 04:58] LABS: Lymphocytes # 0.3 K/mcL (0.6-4.6); Neutrophils # 6.5 K/mcL (1.6-8.9); Platelet Estimate Normal (Normal); Poikilocytosis 1+ (Not Present); Polychromasia 1+ (Not Present)
[2016-09-19] MEDS: *HR* Heparin 5,000 UNIT/ML VIAL SQ SCH ×2 (06:52→17:31)
[2016-09-19] MEDS: Ondansetron 4 MG/2 ML VIAL IVP PRN ×2 (09:05→20:06)
[2016-09-19] MEDS: Losartan/HCTZ 50-12.5 TABLET PO SCH (09:05)
[2016-09-19] MEDS: methylPREDNISolone 125 MG/2 ML VIAL IVP SCH ×3 (09:05→23:45)
[2016-09-19] MEDS: Insulin LISPRO 300 UNITS/3 ML VIAL SQ SCH ×4 (09:05→20:06)
[2016-09-19] MEDS: cloNIDine HCl 0.1 MG TABLET PO SCH ×4 (09:06→20:04)
[2016-09-19] MEDS: Levofloxacin 750 MG/150 ML 750 MG/150 ML BAG IVPB SCH (09:06)
[2016-09-19] MEDS: Aspirin 81 MG TAB.CHEW PO SCH (09:06)
[2016-09-19] MEDS: Famotidine 20 MG TABLET PO SCH ×2 (09:06→16:10)
[2016-09-19] MEDS: DALIRESP 500 MCG PO SCH (09:06)
[2016-09-19] MEDS: clonazePAM 1 MG TABLET PO SCH ×2 (09:06→20:06)
[2016-09-19] MEDS: Anoro Ellipta 62.5-2 IH SCH ×2 (11:13→20:18)
--- NOTE | 2016-09-19 14:32 | Event Note ---
Date of Encounter: 09/19/16 Time of Encounter: 10:30 Patient seen and examined. On examination, based sitting upright in bed conversing with her daughter. Patient is upset that her regular home pain and clonidine medications have not been given tenured otherwise, she feels as if she is starting to open up but states she is still more short of breath than usual. Patient also stating that she has had diarrhea for the last 2 days but states it is starting to slow down. This could explain her hypokalemia which was resolved overnight with supplementation, we will continue to trend. We will continue to treat her for COPD exacerbation. Chest x-ray without acute processes. Chest CTA negative for PE but did reveal bilateral upper lobe patchy airspace disease atypical pulmonary edema versus pneumonia. Continue levofloxacin. Patient is on 3 L per nasal cannula continuously at home, 3 L here. Patient stating that her pain is uncontrolled. She has not had her pain medication, she takes 5 mg of oxycodone every 8 hours at home, will schedule for every 6 until her pain is caught back up to its baseline for the next day and likely decrease it back down every 8 hours. We will continue to monitor and continue pulmonary toilet. ITS Impressions Chest X-Ray 09/18/16 22:51 IMPRESSION: 1. No acute cardiopulmonary abnormality. 2. Emphysema. D/ / Nikunj Garcia MD / Nikunj Garcia MD Interpreting Provider: Nikunj Garcia MD Chest CTA 09/19/16 01:15 IMPRESSION: No acute pulmonary embolus is detected. Multifocal patchy airspace disease in the upper lobes is noted with smooth interlobular septal thickening. Atypical pulmonary edema could have this appearance. Infectious or inflammatory process such as pneumonia is also considered. Small nodule outer left breast. Correlation with mammography is recommended. Extensive atherosclerosis of the thoracic aorta with small penetrating ulcer re- demonstrated from the aortic arch similar to prior study. D/ / Perfecto Stephenson MD / Perfecto Stephenson MD Interpreting Provider: Perfecto Stephenson MD
[2016-09-19] MEDS: Loratadine 10 MG TABLET PO SCH (16:10)
[2016-09-19] MEDS: *HR* OxyCODONE Immed Rel 5 MG TABLET PO SCH ×3 (16:10→23:45)
--- NOTE | 2016-09-19 19:02 | Electrocardiograph Report ---
[place] [id number] Test Date: 2016-09-18 Pat Name: Nora Ren Department: 103 Room: 3B24 Gender: F Rehab Consultant: ANTONI : 1960 Requested By: Rodolfo Power Order Number: [id number] Reading MD: Low Cordova MD Measurements Intervals [place] Rate: 142 P: 42 ID: [id number] QRS: 46 QRSD: 82 T: 52 QT: 321 QTc: 403 Interpretive Statements SINUS TACHYCARDIA, POSSIBLE ATRIAL FLUTTER Poor R wave progression BASELINE ARTIFACT Electronically Signed On 09-19-2016 19:00:30 EDT by Low Cordova MD
[2016-09-19] MEDS: amLODIPine 5 MG TABLET PO SCH (20:06)
[2016-09-20] MEDS: Ipratropium/Albuterol Neb 3 ML IH SCH ×7 (00:51→23:12)
[2016-09-20] MEDS: Acetaminophen 325 MG TABLET PO PRN (04:10)
[2016-09-20 04:34] LABS: BUN/Creatinine Ratio 24 (6-26); Blood Urea Nitrogen 23 mg/dL (7-20); Calcium 9.2 mg/dL (8.6-10.8); Carbon Dioxide 31 mEq/L (19-29); Chloride 96 mEq/L (98-109); Glucose 480 mg/dL (70-99); Magnesium 1.9 mg/dL (1.6-2.6); Osmolality,Calculated 305 (280-300); Potassium 4.1 mEq/L (3.5-4.5); Sodium 135 mEq/L (136-145); eGFR For African Americans > 60 (> 60); eGFR For Non-African Americans > 60 (> 60)
[2016-09-20] MEDS: *HR* Heparin 5,000 UNIT/ML VIAL SQ SCH ×2 (05:20→17:35)
[2016-09-20] MEDS: *HR* OxyCODONE Immed Rel 5 MG TABLET PO SCH ×3 (05:20→17:34)
[2016-09-20] MEDS: Insulin DETEMIR 100 UNIT/ML X5UNITS SQ SCH ×2 (05:21→22:25)
[2016-09-20] MEDS: Levofloxacin 750 MG/150 ML 750 MG/150 ML BAG IVPB SCH (07:53)
[2016-09-20] MEDS: Losartan/HCTZ 50-12.5 TABLET PO SCH (07:53)
[2016-09-20] MEDS: methylPREDNISolone 125 MG/2 ML VIAL IVP SCH ×2 (07:53→17:35)
[2016-09-20] MEDS: Loratadine 10 MG TABLET PO SCH (07:54)
[2016-09-20] MEDS: cloNIDine HCl 0.1 MG TABLET PO SCH ×4 (07:54→20:52)
[2016-09-20] MEDS: Insulin LISPRO 300 UNITS/3 ML VIAL SQ SCH ×4 (07:54→20:55)
[2016-09-20] MEDS: clonazePAM 1 MG TABLET PO SCH ×2 (07:54→20:52)
[2016-09-20] MEDS: Aspirin 81 MG TAB.CHEW PO SCH (07:54)
[2016-09-20] MEDS: Famotidine 20 MG TABLET PO SCH ×2 (07:54→17:35)
[2016-09-20] MEDS: DALIRESP 500 MCG PO SCH (08:02)
[2016-09-20] MEDS: Anoro Ellipta 62.5-2 IH SCH ×2 (08:02→20:54)
[2016-09-20] MEDS: Ondansetron 4 MG/2 ML VIAL IVP PRN (08:03)
--- NOTE | 2016-09-20 10:19 | Internal Med Progress Note ---
Date of Encounter: 09/20/16 Time of Encounter: 08:45 - Assessment and plan (1) Acute exacerbation of chronic obstructive airways disease Current Visit: No Status: Acute Assessment and plan: Patient stating she was unable to sleep at all last night. She states that her breathing treatments are only lasting approximately one hour or 1-1/2 hours. On examination, her breath sounds have decreased from yesterday. She had poor aeration with diffuse expiratory wheezing present, I do not appreciate any wheezing on examination today. Moderate increased work of breathing. We will obtain a repeat chest CT-concern is for pulmonary edema versus pneumonia. She is on levofloxacin. She does appear euvolemic and she recently had an echo 2 months ago that revealed ejection fraction of 70% with mild diastolic dysfunction. We will await chest CT and monitor closely. No increased need for supplemental oxygenation. She did not use her CPAP last night which could be a contributing factor. Continue duo nebs every 4 hours, albuterol every 2 as needed, methylprednisolone. ITS Impressions Chest X-Ray 09/18/16 22:51 IMPRESSION: 1. No acute cardiopulmonary abnormality. 2. Emphysema. D/ / Nikunj Garcia MD / Nikunj Garcia MD Interpreting Provider: Nikunj Garcia MD Chest CTA 09/19/16 01:15 IMPRESSION: No acute pulmonary embolus is detected. Multifocal patchy airspace disease in the upper lobes is noted with smooth interlobular septal thickening. Atypical pulmonary edema could have this appearance. Infectious or inflammatory process such as pneumonia is also considered. Small nodule outer left breast. Correlation with mammography is recommended. Extensive atherosclerosis of the thoracic aorta with small penetrating ulcer re- demonstrated from the aortic arch similar to prior study. D/ / Perfecto Stephenson MD / Perfecto Stephenson MD Interpreting Provider: Perfecto Stephenson MD (2) Atypical pneumonia Current Visit: No Status: Suspected (3) Pulmonary edema Current Visit: Yes Status: Suspected (4) Tachycardia Current Visit: No Status: Chronic Assessment and plan: Appears to be acute on chronic, was addressed during her most recent visit. Echocardiogram from 07/19/16 revealed ejection fraction of 70% with mild diastolic dysfunction. No pulmonary hypertension (5) Diabetes mellitus Current Visit: No Status: Chronic Assessment and plan: moderately controlled with an A1C of 8.5%. Uncontrolled this am- sliding scale coverage increased- will trend and adjust medications accordingly. (6) History of renal artery stenosis Current Visit: No Status: Chronic Assessment and plan: Renal functioning normal. Blood pressure was controlled up until today-suspect stress and dyspnea contributing factor. (7) Hypokalemia Current Visit: No Status: Resolved Assessment and plan: Likely secondary to the patient's diarrhea that she had for 2 days, she states "it is slowing down." (8) Acute on chronic respiratory failure with hypoxia and hypercapnia Current Visit: No Status: Chronic Assessment and plan: 3 L per nasal cannula continuously at home with CPAP at bedtime. No changes currently (9) GERD (gastroesophageal reflux disease) Current Visit: No Status: Chronic Assessment and plan: Denies current symptoms Qualifiers: Esophagitis presence: without esophagitis Qualified Code(s): K21.9 - Gastro -esophageal reflux disease without esophagitis (10) Tobacco abuse Current Visit: No Status: Inactive Assessment and plan: quit smoking (11) JORGE (obstructive sleep apnea) Current Visit: No Status: Chronic Assessment and plan: CPAP HS. It does not appear as if the patient uses CPAP last night which could have atributed to what she refers to as a "rough night." She states that she did not sleep "at all." CPAP ordered. (12) Anxiety Current Visit: No Status: Chronic Assessment and plan: Home clonazepam has been continued (13) COPD (chronic obstructive pulmonary disease) Current Visit: No Status: Chronic Qualifiers: COPD type: emphysema Emphysema type: panlobular Qualified Code(s): J43.1 - Panlobular emphysema (14) Hypertension Current Visit: No Status: Chronic Assessment and plan: Currently hypertensive however the patient is stating that her shortness of breath has worsened and states she did not sleep last night. We will trend as her dyspnea is being treated. Qualifiers: Hypertension type: essential hypertension Qualified Code(s): I10 - Essential (primary) hypertension (15) DVT prophylaxis Current Visit: No Status: Acute Assessment and plan: Subcutaneous heparin - Subjective Interval history: Patient seen and examined. On examination, patient sitting upright on the side of her bed. Patient stating she feels horrible. She states that she was not able to sleep last night. She states she feels as if the breathing treatments are only lasting approximately 1-1-1/2 hours. She states she is more short of breath than yesterday. - Constitutional Vitals: Temp Pulse Resp BP Pulse Ox 97.8 F 106 14 170/84 93 09/20/16 07:09 09/20/16 07:09 09/20/16 07:09 09/20/16 07:09 09/20/16 07:09 General appearance: Present: cooperative, mild distress (moderate), A&O X 3, pleasant, answers questions appropriately - Head Head exam: Present: atraumatic, normocephalic - Eye Eye exam: Present: PERRL, conjuntiva pink, sclera anicteric Pupils: Present: PERRL - Neck Neck exam general surgery: Present: supple, trachea midline. Absent: lymphadenopathy - Respiratory Respiratory exam: Present: accessory muscle use, decreased breath sounds, prolonged expiratory phase, respiratory distress. Absent: rales, rhonchi, wheezes - Cardiovascular Cardiovascular exam: Present: RRR, +S1, +S2. Absent: diastolic murmur, gallop, rubs, systolic murmur - GI/Abdominal GI/Abdominal exam: Present: normal bowel sounds, soft, no peritoneal signs. Absent: distended, tenderness - Extremities Exam Extremities exam: Present: warm, radial pulses palpable and symetrical. Absent : calf tenderness, cyanotic, pedal edema - Neurological Exam Neurological exam: Present: alert, CN II-XII intact, oriented X3, no focal deficits, strengths equal and symetr throughout. Absent: pronater drift, facial droop, speech deficit - Skin Skin exam: Present: dry, intact, pallor, warm Internal Medicine: Result - Labs CBC & Chem 7: 09/19/16 03:56 09/20/16 03:20 Labs: BMP 09/20/16 03:20 Sodium 135 L Potassium 4.1 Chloride 96 L Carbon Dioxide 31 H BUN 23 H Creatinine 0.95 Glucose 480 H Calcium 9.2 - ABG Interpretation ABG results: PT/INR, D-dimer D-Dimer 582 ng/mLFEU (0-500) H 09/18/16 23:00 Consult Discharge Plan - Plan Referrals: Domitila Lau MD [Primary Care Provider] - 09/24/16 1:30 pm
[2016-09-20 12:09] LABS: ABG Base Excess 8.7 mEq/L (-2.0 to 3.0); ABG Oxygen Saturation 96 % (95-98); ABG PCO2 50 mmHg (35-45); ABG PH 7.44 pH Units (7.32-7.45); ABG PO2 78 mmHg (85-104); ABG TCO2 35.5 mEq/L (20-26); Blood Gas FiO2 32 %
[2016-09-20] MEDS ORDERED: SUMAtriptan 6 MG/0.5 ML SQ ONE (16:19)
[2016-09-20] MEDS: amLODIPine 5 MG TABLET PO SCH (20:52)
[2016-09-20] MEDS ORDERED: methylPREDNISolone 125 MG/2 ML VIAL IVP STA (22:02)
[2016-09-20] MEDS ORDERED: *HR* OxyCODONE Immed Rel 5 MG TABLET PO STA (22:03)
[2016-09-21] MEDS: *HR* OxyCODONE Immed Rel 5 MG TABLET PO SCH ×5 (01:14→23:34)
[2016-09-21] MEDS: methylPREDNISolone 125 MG/2 ML VIAL IVP SCH ×3 (01:15→17:38)
[2016-09-21] MEDS: Ipratropium/Albuterol Neb 3 ML IH SCH ×6 (03:38→23:03)
[2016-09-21] MEDS: *HR* Heparin 5,000 UNIT/ML VIAL SQ SCH ×2 (06:00→17:47)
[2016-09-21] MEDS: Ondansetron 4 MG/2 ML VIAL IVP PRN ×2 (08:59→20:10)
[2016-09-21] MEDS: Levofloxacin 750 MG/150 ML 750 MG/150 ML BAG IVPB SCH (08:59)
[2016-09-21] MEDS: Aspirin 81 MG TAB.CHEW PO SCH (09:00)
[2016-09-21] MEDS: cloNIDine HCl 0.1 MG TABLET PO SCH ×4 (09:00→20:21)
[2016-09-21] MEDS: Losartan/HCTZ 50-12.5 TABLET PO SCH (09:00)
[2016-09-21] MEDS: Loratadine 10 MG TABLET PO SCH (09:00)
[2016-09-21] MEDS: Insulin LISPRO 300 UNITS/3 ML VIAL SQ SCH ×4 (09:00→20:10)
[2016-09-21] MEDS: clonazePAM 1 MG TABLET PO SCH ×2 (09:00→20:09)
[2016-09-21] MEDS: Famotidine 20 MG TABLET PO SCH ×2 (09:00→17:37)
[2016-09-21] MEDS: DALIRESP 500 MCG PO SCH (09:01)
[2016-09-21] MEDS: Anoro Ellipta 62.5-2 IH SCH ×2 (09:01→22:12)
--- NOTE | 2016-09-21 09:43 | Internal Med Progress Note ---
Date of Encounter: 09/21/16 Time of Encounter: 09:25 - Assessment and plan (1) Acute exacerbation of chronic obstructive airways disease Current Visit: Yes Status: Acute Assessment and plan: Patient stating that she still feels awful today. She is requiring 3.5 liters 02 to maintain her sats, normally wears 3 at home. Lungs are diminished with prolonged expiratory phase. Pt has upper airway expiratory wheezing. She states that she is not ready to go home and would like to reassess tomorrow. She has some difficulty speaking, is able to speak in short phrases. States that she has increased SOB with ambulation. Would benefit from another day and continued IV antibiotics , steroids, supplemental 02, and scheduled treatments. ITS Impressions Chest X-Ray 09/18/16 22:51 IMPRESSION: 1. No acute cardiopulmonary abnormality. 2. Emphysema. D/ / Nikunj Garcia MD / Nikunj Garcia MD Interpreting Provider: Nikunj Garcia MD Chest CTA 09/19/16 01:15 IMPRESSION: No acute pulmonary embolus is detected. Multifocal patchy airspace disease in the upper lobes is noted with smooth interlobular septal thickening. Atypical pulmonary edema could have this appearance. Infectious or inflammatory process such as pneumonia is also considered. Small nodule outer left breast. Correlation with mammography is recommended. Extensive atherosclerosis of the thoracic aorta with small penetrating ulcer re- demonstrated from the aortic arch similar to prior study. D/ / Perfecto Stephenson MD / Perfetco Stephenson MD Interpreting Provider: Perfecto Stephenson MD (2) Atypical pneumonia Current Visit: No Status: Suspected Assessment and plan: Continue Levaquin IV. Vitals are WNL. Chest X-Ray 09/18/16 22:51 IMPRESSION: 1. No acute cardiopulmonary abnormality. 2. Emphysema. D/ / Nikunj Garcia MD / Nikunj Garcia MD Interpreting Provider: Nikunj Garcia MD Chest CTA 09/19/16 01:15 IMPRESSION: No acute pulmonary embolus is detected. Multifocal patchy airspace disease in the upper lobes is noted with smooth interlobular septal thickening. Atypical pulmonary edema could have this appearance. Infectious or inflammatory process such as pneumonia is also considered. Small nodule outer left breast. Correlation with mammography is recommended. Extensive atherosclerosis of the thoracic aorta with small penetrating ulcer re- demonstrated from the aortic arch similar to prior study. D/ / Perfecto Stephneson MD / Perfecto Stephenson MD Interpreting Provider: Perfecto Stephenson MD Chest CT 09/20/16 10:18 IMPRESSION: Improved aeration of the lung apices. There is underlying pulmonary emphysema Scarring or atelectasis is seen in the right middle lobe and lingula. 1.3 cm nodule in left breast is noted. Recommend mammographic correlation D/ / Jose Antonio Gomez MD / Jose Antonio Gomez MD Interpreting Provider: Jose Antonio Gomez MD (3) Diabetes mellitus Current Visit: No Status: Chronic Assessment and plan: A1C 8.5% in July,. Glucose 480 this a.m. Pt is getting solumedrol 60mg IV q 6h, will decrease as pt improves. Continue SSI, accuchecks ac/hs, diabetic diet. Qualifiers: Diabetes mellitus type: type 2 Diabetes mellitus complication status: with hyperglycemia Diabetes mellitus nursing home insulin use: with insole channeler use Qualified Code(s): E11.65 - Type 2 diabetes mellitus with hyperglycemia; Z79.4 - correction (current) 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 (4) HLD (hyperlipidemia) Current Visit: No Status: Chronic Assessment and plan: Chronic. continue home medications. Qualifiers: Hyperlipidemia type: other hyperlipidemia Qualified Code(s): E78.4 - Other hyperlipidemia (5) History of renal artery stenosis Current Visit: No Status: Chronic Assessment and plan: Blood pressure is borderline goal, 150s/90s, 140s/90s. Renal function remains WNL. (6) DVT prophylaxis Current Visit: No Status: Acute Assessment and plan: Heparin SQ (7) Tobacco use disorder Current Visit: Yes Status: Chronic Assessment and plan: Chronic. Will discuss smoking cessation prior to discharge. (8) Hypokalemia Current Visit: Yes Status: Resolved (9) GERD (gastroesophageal reflux disease) Current Visit: No Status: Chronic Assessment and plan: Chronic. Continue home medications. Qualifiers: Esophagitis presence: without esophagitis Qualified Code(s): K21.9 - Gastro -esophageal reflux disease without esophagitis (10) JORGE (obstructive sleep apnea) Current Visit: No Status: Chronic Assessment and plan: CPAP HS. Has BiPAP at home. (11) Anxiety Current Visit: Yes Status: Chronic Assessment and plan: Home clonazepam has been continued. Chronic. (12) Breast nodule Current Visit: Yes Status: Acute Assessment and plan: Found on Chest CT. Follow up outpatient with mammogram. - Time Spent With Patient less than 15 minutes - Subjective Interval history: Pt was seen and assessed at 0925 this a.m. Pt states that she still feels awful and is not ready to go home yet. She still reports that she is having LESTER and non-productive cough. - Constitutional Vitals: Temp Pulse Resp BP Pulse Ox 97.9 F 72 17 147/89 97 09/21/16 08:09 09/21/16 08:09 09/21/16 08:09 09/21/16 08:09 09/21/16 08:09 General appearance: Present: cooperative, mild distress (moderate), A&O X 3, pleasant, answers questions appropriately - Head Head exam: Present: normal inspection - Eye Eye exam: Present: normal appearance, conjuntiva pink - ENT ENT exam: Present: mucous membranes moist, normal exam, normal external ear exam - Neck Neck exam general surgery: Absent: lymphadenopathy, tenderness - Respiratory Respiratory exam: Present: decreased breath sounds, prolonged expiratory phase, respiratory distress, wheezes. Absent: chest wall tenderness, rales, rhonchi, stridor - Cardiovascular Cardiovascular exam: Present: RRR, +S1, +S2, tachycardia. Absent: diastolic murmur, systolic murmur - Expanded Cardiovascular Exam Peripheral pulses: 1+: Dorsalis Pedis (L) PM, Dorsalis Pedis (R) PM - GI/Abdominal GI/Abdominal exam: Present: distended, normal bowel sounds, soft. Absent: tenderness - Extremities Exam Extremities exam: Present: normal capillary refill, normal inspection, warm, radial pulses palpable and symetrical. Absent: pedal edema, tenderness - Neurological Exam Neurological exam: Present: alert, oriented X3, no focal deficits. Absent: facial droop, speech deficit - Skin Skin exam: Present: dry, intact, normal color, warm Internal Medicine: Result - Labs CBC & Chem 7: 09/19/16 03:56 09/20/16 03:20 - ABG Interpretation ABG results: ABG ABG pH 7.44 pH Units (7.32-7.45) 09/20/16 11:45 ABG pCO2 50 mmHg (35-45) H 09/20/16 11:45 ABG pO2 78 mmHg (85-104) L 09/20/16 11:45 ABG O2 Saturation 96 % (95-98) 09/20/16 11:45 PT/INR, D-dimer D-Dimer 582 ng/mLFEU (0-500) H 09/18/16 23:00 - Impressions Impressions Chest CT 09/20/16 10:18 IMPRESSION: Improved aeration of the lung apices. There is underlying pulmonary emphysema Scarring or atelectasis is seen in the right middle lobe and lingula. 1.3 cm nodule in left breast is noted. Recommend mammographic correlation D/ / Jose Antonio Gomez MD / Jose Antonio Gomez MD Interpreting Provider: Jose Antonio Gomez MD Consult Discharge Plan - Plan Referrals: Domitila Lau MD [Primary Care Provider] - 09/24/16 1:30 pm
--- NOTE | 2016-09-21 14:40 | Pulmonary Function Test Report ---
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 RRT : 1960 Requested By: Zainab Nelson Order Number: [id number] Reading MD: Zainab Nelson Interpretive Statements LAB DATA Indication: COPD Amiodarone Therapy: []Yes [x]No Previous PFT: [x]Yes []No Previous PFT date: []/[]/[2008] []NA Previous PFT results scanned: [x]Yes []No []NA Hemoglobin within last 30 days: [x]Yes []No Hemoglobin date: []/[]/[2016] []NA Hemoglobin results: [11.4]gm/dl If patient unable to complete all procedures ordered, why: PROCEDURES PERFORMED: SP.PFT before and after bronchodilator [pftp1] SP.PFT body box lung volume [pftp3] SP.PFT DLCO [pftp4] INTERPRETATION: Spirometry shows very severe airway obstructive pattern Following Bronchodilator, there is improvement in FVC by 9%. Increased Lung Volumes reveal hyperinflation and air trapping. Diffusion Capacity is severely reduced. Flow Volume Loop: Obstructive Electronically Signed On 09-21-2016 14:38:20 EDT by Zainab Nelson
[2016-09-21] MEDS ORDERED: SUMAtriptan 6 MG/0.5 ML SQ ONE (15:45)
[2016-09-21] MEDS: Insulin DETEMIR 100 UNIT/ML X5UNITS SQ SCH (20:09)
[2016-09-21] MEDS: amLODIPine 5 MG TABLET PO SCH (20:21)
[2016-09-22] MEDS: Insulin LISPRO 300 UNITS/3 ML VIAL SQ SCH ×4 (00:04→12:08)
[2016-09-22] MEDS: Ipratropium/Albuterol Neb 3 ML IH SCH ×3 (04:02→11:19)
[2016-09-22 04:20] LABS: Basophils % 0.3 %; Hematocrit 31.6 % (35.3-44.9); Hemoglobin 10.1 g/dL (11.5-15.4); Immature Granulocytes % 3.1 % (0-4); Lymphocytes # 0.9 K/mcL (0.6-4.6); Lymphocytes % 7.2 %; Mean Corpuscular Hemoglobin 29.5 pg (28.0-33.3); Mean Corpuscular Volume 92.4 fL (83.0-100.0); Mean Platelet Volume 9.9 fL (9.4-12.4); Monocytes # 0.5 K/mcL (0.0-1.3); Monocytes % 4.5 %; Neutrophils # 10.3 K/mcL (1.6-8.9); Nucleated Red Blood Cells 0.2 /100 WBC (0); Platelet Count 368 K/mcL (140-400); Red Blood Count 3.42 M/mcL (3.82-4.97); Red Cell Distribution Width 14.1 % (11.5-14.5); Segmented Neutrophils % 84.9 %
[2016-09-22 04:38] LABS: BUN/Creatinine Ratio 29 (6-26); Blood Urea Nitrogen 29 mg/dL (7-20); Calcium 9.6 mg/dL (8.6-10.8); Carbon Dioxide 32 mEq/L (19-29); Chloride 98 mEq/L (98-109); Glucose 274 mg/dL (70-99); Osmolality,Calculated 304 (280-300); Potassium 4.1 mEq/L (3.5-4.5); Sodium 139 mEq/L (136-145); eGFR For African Americans > 60 (> 60); eGFR For Non-African Americans 58 (> 60)
[2016-09-22] MEDS: *HR* Heparin 5,000 UNIT/ML VIAL SQ SCH (05:40)
[2016-09-22] MEDS: methylPREDNISolone 125 MG/2 ML VIAL IVP SCH (05:43)
[2016-09-22] MEDS: *HR* OxyCODONE Immed Rel 5 MG TABLET PO SCH ×2 (05:43→12:05)
[2016-09-22] MEDS: Ondansetron 4 MG/2 ML VIAL IVP PRN (06:36)
[2016-09-22] MEDS ORDERED: 0.9 % Sodium Chloride 1,000 ML IVC SCH (07:45)
[2016-09-22] MEDS: Levofloxacin 750 MG/150 ML 750 MG/150 ML BAG IVPB SCH (08:29)
[2016-09-22] MEDS: Aspirin 81 MG TAB.CHEW PO SCH (08:30)
[2016-09-22] MEDS: Losartan/HCTZ 50-12.5 TABLET PO SCH (08:30)
[2016-09-22] MEDS: clonazePAM 1 MG TABLET PO SCH (08:30)
[2016-09-22] MEDS: Famotidine 20 MG TABLET PO SCH (08:30)
[2016-09-22] MEDS: cloNIDine HCl 0.1 MG TABLET PO SCH (08:30)
[2016-09-22] MEDS: DALIRESP 500 MCG PO SCH (08:31)
[2016-09-22] MEDS: Anoro Ellipta 62.5-2 IH SCH (08:31)
[2016-09-22] MEDS: Loratadine 10 MG TABLET PO SCH (08:36)
[2016-09-22 11:09] VITALS: BP 161/98
--- NOTE | 2016-09-22 12:10 | Discharge Summary ---
Date of Encounter: 09/22/16 Time of Encounter: 08:20 - Discharge Diagnosis (1) Acute exacerbation of chronic obstructive airways disease Priority: Primary Status: Acute Comments: Pt appears to be doing significantly better today. Wheezing is faint and in upper anterior airways, there appears to be better air movement in post lung salazar. She states that she feels better and is ready to go home. Continue Levaquin, po, at home Steroid taper Pt denies needs for nebulizer treatments or inhalers for home. (2) Atypical pneumonia Priority: Secondary Status: Suspected Comments: Plan as above. (3) Diabetes mellitus Priority: Secondary Status: Chronic Comments: Continue insulin home dose, accucheck regimen, and diabetic diet at home. Qualifiers: Diabetes mellitus type: type 2 Diabetes mellitus complication status: with hyperglycemia Diabetes mellitus fdc insulin use: with superintendent terminal use Qualified Code(s): E11.65 - Type 2 diabetes mellitus with hyperglycemia; Z79.4 - longterm (current) 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 (4) History of renal artery stenosis Priority: Secondary Status: Chronic Comments: Renal function is WNL. Continue to monitor blood pressure. (5) Tobacco use disorder Priority: Secondary Status: Chronic Comments: Pt states that she will stop smoking on her own and does not want any aids or tools. (6) Hypokalemia Priority: Secondary Status: Resolved Comments: Resolved. (7) GERD (gastroesophageal reflux disease) Priority: Secondary Status: Chronic Comments: Pt states that she was having abdominal pain this a.m. Pt states that she has multiple ulcers. Last EGD was [address] Farnsworth. Pt will continue her normal medications and I will add Carafate. Pt states that she has taken it in the past and it was helpful. She will need to follow up with PCP for further evaluation and treatment. Qualifiers: Esophagitis presence: without esophagitis Qualified Code(s): K21.9 - Gastro -esophageal reflux disease without esophagitis (8) JORGE (obstructive sleep apnea) Priority: Secondary Status: Chronic Comments: Bipap settings for home 01/26 32% 3L (9) Anxiety Priority: Secondary Status: Chronic Comments: Continue home medications. (10) Breast nodule Priority: Secondary Status: Acute Comments: Incidental finding on chest CT. Follow up with outpt mammogram. (11) DVT prophylaxis Priority: Secondary Status: Acute Comments: Pt is ambulatory. Heparin SQ. - Discharge Medications Prescriptions: Levofloxacin [Levaquin] 750 mg PO DAILY #5 tablet predniSONE [PredniSONE] 10 mg PO DAILY #51 tablet Sucralfate [Carafate] 1 gm PO QIDAC #120 tab Home Medications: Pantoprazole Sodium [Protonix] 40 mg PO DAILY 02/10/15 [History] Losartan/Hydrochlorothiazide [Losartan-Hctz 100-25 mg Tab] 1 tab PO DAILY [History] Ipratropium/Albuterol Neb [Duoneb] 3 ml IH Q6HR PRN #90 vial.neb 05/02/16 [Rx] cloNIDine HCl [Clonidine HCl] 0.3 mg PO QID 05/16/16 [History] Aspirin 81 mg PO DAILY 07/19/16 [History] Oxycodone HCl [Oxaydo] 5 mg PO Q8H PRN 07/19/16 [History] Oxygen 3 l .ROUTE AD 07/19/16 [History] Ranitidine HCl [Zantac] 150 mg PO DAILY 07/19/16 [History] clonazePAM [Klonopin] 1 mg PO BID 07/31/16 [History] Insulin Glargine [Lantus] 22 unit SQ HS 08/10/16 [History] Insulin LISPRO [HumaLOG] 0 units SQ TIDWM 08/10/16 [History] Roflumilast [Daliresp] 500 mcg PO DAILY 08/10/16 [History] Umeclidinium Brm/Vilanterol Tr [Anoro Ellipta 62.5-25 Mcg INH] 1 puff IH DAILY 08/10/16 [History] Albuterol Sulfate [Ventolin Hfa] 2 puff IH Q4H PRN 09/19/16 [History] Amlodipine Besylate 2.5 mg PO HS 09/19/16 [History] Loratadine [Allergy Relief] 10 mg PO DAILY 09/19/16 [History] Meclizine [Antivert] 25 mg PO TID PRN 09/19/16 [History] Ondansetron ODT [Zofran ODT] 4 mg SL Q6HR PRN 09/19/16 [History] Levofloxacin [Levaquin] 750 mg PO DAILY #5 tablet 09/22/16 [Rx] Sucralfate [Carafate] 1 gm PO QIDAC #120 tab 09/22/16 [Rx] predniSONE [PredniSONE] 10 mg PO DAILY #51 tablet 09/22/16 [Rx] Allergies/Adverse Reactions: Allergies NSAIDS (Non-Steroidal Anti-Inflamma Allergy (Unknown, Verified 08/10/16 19:01) See Comments Listed on [facility] under allergies- Unknown Reaction Penicillins Allergy (Unknown, Verified 08/10/16 19:01) Hives lisinopril Adverse Reaction (Verified 08/10/16 19:01) Cough tramadol Adverse Reaction (Verified 08/10/16 19:01) Nausea Date of admission: 09/21/16 18:55 Primary care physician: Domitila Lau MD Discharging clinician: Kathya Valle Anticipated date of discharge: 09/22/16 - Patient Status Disposition: Home, Self-Care Condition: Good Functional capacity at discharge: independent ambulation Overall status at discharge: patient is progressing back to baseline - Discharge Instructions Follow Up With: Domitila Lau MD [Primary Care Provider] - 09/24/16 1:30 pm Additional Instructions: Follow up as scheduled with your primary care physician on Tuesday. A nodule was noted in your left breast, you will need to have a mammogram. Speak with your PCP about this on Tuesday. Future CT chest done on October 04, results go to pulmonology. This was scheduled by pulmonology. Start your steroids and Levaquin tomorrow, start Carafate today. Follow-up with pulmonology as scheduled. Return to the emergency department immediately if your symptoms return or worsen or if you have any other problems or concerns. Continue to wear your BiPAP at night. Stop smoking Stay inside in the air-conditioning during the heat of the day. - Diet and Activity Activity: increase activity as tolerated Diet: advance to your usual diet Hospital course: Ms. Ren is a 56 year old female with past medical history of JORGE, GERD, anxiety , hypertension. She presented to the emergency department on August 20 with shortness of breath was becomes worse with exertion. Onset date prior to admission when she was at rest. At that time she also developed a cough productive of light green sputum and had pleuritic chest pain on inspiration. She also reported a fever at home, was afebrile throughout visit. Patient normally wears 3 L of oxygen at home, during the stay she was requiring 3-1/2 points. She also has breathing treatments at home that she uses as needed. She said that she was experiencing increased need of inhalers and reading treatments over the last few days before admission. She has had multiple hospital admissions in the last few months for COPD exacerbation and has been on antibiotics and steroids. Patient denies chest pain, dizziness, nausea, vomiting. Patient initially did not seem to be improving and was kept for 2 extra days to monitor for improvement. Chest x-ray showed no acute cardiopulmonary abnormality and emphysema. She had an elevated d-dimer of 582. CTA of the chest showed improved aeration of the lung apices with underlying pulmonary emphysema. She has a 1.3 cm nodule in her left breast. She will need a mammogram outpatient for correlation. There was no acute PE on CTA, there was atypical pulmonary edema or infectious or inflammatory process such as pneumonia was considered. She has a follow-up appointment with her primary care physician in [place] on September 24. Patient already had PFTs scheduled by pulmonology which she completed here while she was inpatient. Interpreted by pulmonology as very severe airway obstructive pattern, hyperinflation and air trapping. She has an outpatient CT scheduled for October 04 and will follow-up with pulmonology after for results. She appears to be much improved today. The wheezing is heard in upper airways anteriorly. She is breathing much easier and has audible air movement posterior salazar today. She did report some nausea and abdominal pain today. She reports that she has multiple ulcers in various stages of healing and last EGD was [address] Farnsworth. Patient states in the past she has had Carafate that worked well. I have restarted that, it did help her pain today while she was here. She will continue her normal medications for GERD. Her vital signs have remained stable. She is on her normal 3 L of oxygen and satting well at 95-99%. Respirations were unlabored when I saw her. She has been afebrile. She will be sent home with Prescription for new BiPAP settings, Levaquin 750 mg daily for 5 days, she did receive 3-4 days IV here. She will be sent home with a lengthy prednisone taper. She denies needs for any other refills her prescriptions from home. Patient is stable and appropriate for discharge. Time spent discussing smoking cessation with patient: 3 to 10 minutes - Time Spent with Patient Total time spent providing and/or coordinating discharge services: Less than 30 minutes - Constitutional Vitals: Temp Pulse Resp BP Pulse Ox 97.6 F 114 17 161/98 99 09/22/16 11:08 09/22/16 11:08 09/22/16 11:08 09/22/16 11:08 09/22/16 11:08 General appearance: Present: cooperative, mild distress (moderate), A&O X 3, pleasant, no acute distress, answers questions appropriately - Head Head exam: Present: normal inspection - Eye Eye exam: Present: normal appearance, conjuntiva pink - ENT ENT exam: Present: mucous membranes moist, normal exam, normal external ear exam , normal oropharynx - Neck Neck exam general surgery: Absent: tenderness - Respiratory Respiratory exam: Present: decreased breath sounds, wheezes. Absent: rales, respiratory distress, rhonchi, stridor, tachypnea - Cardiovascular Cardiovascular exam: Present: RRR, +S1, +S2. Absent: diastolic murmur, systolic murmur - GI/Abdominal GI/Abdominal exam: Present: distended, soft. Absent: hepatomegaly, tenderness - Extremities Exam Extremities exam: Present: normal inspection, warm. Absent: pedal edema, tenderness - Neurological Exam Neurological exam: Present: alert, oriented X3, no focal deficits. Absent: facial droop, speech deficit - Skin Skin exam: Present: dry, intact, warm. Absent: rash
== END 2016-09-22 14:05 | disposition home or self-care (01) | DRG 190 ==
LOC: EMEROO 22:40 → 3BNU 22:40
PROVIDERS: ADMIT Internal Medicine; ATTEND Nurse Practitioner Family

== ENCOUNTER 2016-09-27 13:30 | Inpatient (IN) ==
[2016-09-27] MEDS ORDERED: methylPREDNISolone 125 MG/2 ML VIAL IVP ONE (13:54)
[2016-09-27] MEDS ORDERED: Ipratropium/Albuterol Neb 3 ML IH ONE (13:54)
--- NOTE | 2016-09-27 13:57 | Emergency Department Note ---
Disposition Clinical Impression: Acute exacerbation of chronic obstructive pulmonary disease (COPD) Disposition: Admitted As Inpatient Condition: Fair Time of Disposition: 07:35 SOB HPI - General Chief Complaint: ED Shortness of Breath/Dyspnea Stated Complaint: LESTER Time Seen by Provider: 09/27/16 13:43 Source: patient Mode of arrival: ambulatory Limitations: no limitations Nursing Notes Reviewed: Yes Vital Signs Reviewed: Yes - History of Present Illness 56-year-old female history of COPD, presents with shortness of breath and chest pain, she describes it 8/ 10 bandlike chest pain across her chest, worse today. She has been getting some chest pain and shortness of breath the last 4 days since she was discharged from the hospital. She was recently admitted for COPD exacerbation as well as atypical pneumonia and treated with 5 days of Levaquin. Patient states that she has been on home oxygen 3 L, and has been more short of breath with this. 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 (ago): hour(s) Severity: moderate Improves with: oxygen Known history of: COPD Associated symptoms: Reports: chest pain, cough, wheezing, sputum production. Denies: pain with inspiration, fever, orthopnea Treatment prior to arrival: oxygen Cough present: Yes Cough Description: Voluntary Cough Frequency: Intermittent Sputum production: Yes Sputum Amount: Scant Sputum Color: Clear, White - Related Data Home Medications Medication Instructions Recorded Confirmed Pantoprazole Sodium [Protonix] 40 mg PO DAILY 02/10/15 09/27/16 Losartan/Hydrochlorothiazide 1 tab PO DAILY 05/03/15 09/27/16 [Losartan-Hctz 100-25 mg Tab] cloNIDine HCl [Clonidine HCl] 0.3 mg PO QID 05/16/16 09/27/16 Aspirin 81 mg PO DAILY 07/19/16 09/27/16 Oxycodone HCl [Oxaydo] 5 mg PO Q8H PRN 07/19/16 09/27/16 Oxygen 3 l .ROUTE AD 07/19/16 09/27/16 Ranitidine HCl [Zantac] 150 mg PO DAILY 07/19/16 09/27/16 clonazePAM [Klonopin] 1 mg PO BID 07/31/16 09/27/16 Insulin Glargine [Lantus] 32 unit SQ HS 08/10/16 09/27/16 Insulin LISPRO [HumaLOG] 0 units SQ TIDWM 08/10/16 09/27/16 Roflumilast [Daliresp] 500 mcg PO DAILY 08/10/16 09/27/16 Umeclidinium Brm/Vilanterol Tr 1 puff IH DAILY 08/10/16 09/27/16 [Anoro Ellipta 62.5-25 Mcg INH] Albuterol Sulfate [Ventolin Hfa] 2 puff IH Q4H PRN 09/19/16 09/27/16 Amlodipine Besylate 2.5 mg PO HS 09/19/16 09/27/16 Loratadine [Allergy Relief] 10 mg PO DAILY 09/19/16 09/27/16 Meclizine [Antivert] 25 mg PO TID PRN 09/19/16 09/27/16 predniSONE [PredniSONE] See Taper PO DAILY 09/27/16 09/27/16 Previous Rx's Medication Instructions Recorded Ipratropium/Albuterol Neb [Duoneb] 3 ml IH Q6HR PRN #90 vial.neb 05/02/16 Sucralfate [Carafate] 1 gm PO QIDAC #120 tab 09/22/16 Allergies Allergy/AdvReac Type Severity Reaction Status Date / Time NSAIDS (Non-Steroidal Allergy Unknown See Verified 09/27/16 13:34 Anti-Inflamma Comments Penicillins Allergy Unknown Hives Verified 09/27/16 13:34 lisinopril AdvReac Cough Verified 09/27/16 13:34 tramadol AdvReac Nausea Verified 09/27/16 13:34 All systems ED: reviewed and negative except as stated. Review of Systems: As Per HPI Constitutional: Reports: chills Eyes: Denies: eye pain ENT ED: Denies: ear pain Cardiovascular: Reports: as per HPI, chest pain Respiratory: Reports: as per HPI, cough, dyspnea Gastrointestinal: Denies: abdominal pain, nausea, vomiting Genitourinary: Denies: urgency Musculoskeletal: Denies: back pain Integumentary: Denies: rash Neurological: Denies: headache Past Medical History - Past Medical History Attestation: Yes The following information was validated with the patient. Source: patient Medical history: Reports: asthma, COPD, diabetes, GERD, hyperlipidemia, hypertension, renal disease, other Surgical history: Reports: appendectomy, cholecystectomy, knee replacement, other Psychiatric history: Reports: anxiety COW TENDER history: Reports: ectopic , other - Social History Smoking Status: Former smoker Smokeless Tobacco Status: No Alcohol use: Reports: none Drug use: Reports: none Physical Exam - General Limitations: no limitations General appearance: alert, in distress - Head Head exam: atraumatic - Eye Eye exam: Present: normal appearance, PERRL - ENT ENT exam: normal exam - Neck Neck exam: Present: normal inspection - Chest Chest inspection: Present: normal inspection - Respiratory Respiratory exam: Present: respiratory distress, accessory muscle use, prolonged expiratory phase. Absent: wheezes, stridor - Expanded Respiratory Exam Location: rales: Upper, decreased breath sounds: Upper, Lower - Cardiovascular Cardiovascular exam: Present: regular rate - Abdominal Exam Abdominal exam: Present: soft. Absent: Non-Tender, tenderness - Extremities Exam Extremities exam: Present: normal inspection, full ROM - Neurological Exam Neurological exam: Present: alert, oriented X3, CN II-XII intact - Skin Skin exam: Present: warm, dry Course Course Narrative: 56-year-old female with what appears to be a COPD exacerbation, she is short of breath tachypnea, diminished breath sounds on her auscultation, with no wheezes , think that she is severely restricted, acute on chronic respiratory failure, she is having some conversational dyspnea, I ordered 3 DuoNeb slight Medrol basic lab work with CBC chest x-ray plan likely will be for admission - Reevaluation(s) Reevaluation #1: Patient with no evidence of troponin leak, EKG unremarkable, she ambulated to the bathroom and her sat immediately dropped, she was more winded than baseline , evaluated by during this time, the semiskilled patient needs admission she also has a lactate of 2.5 her chest x-ray did not show pneumonia however compared to previous x-ray from her admission a week or 2 ago, however given elevated lactic acidosis tachypnea she does not meet any other SIRS criteria, we did want to start her in. We started empiric Antibiotics, recheck lactate and after 30 mL B bolus with 2500 mL of fluid Vital Signs Temperature 97.6 F 09/27/16 13:31 Pulse Rate 69 09/27/16 13:31 Respiratory Rate 18 09/27/16 13:31 Blood Pressure 186/90 09/27/16 13:31 O2 Sat by Pulse Oximetry 93 09/27/16 13:31 Temperature 97.4 F L 09/28/16 07:24 Pulse Rate 70 09/28/16 07:24 Respiratory Rate 16 09/28/16 07:24 Blood Pressure 155/88 09/28/16 07:24 O2 Sat by Pulse Oximetry 96 09/28/16 07:24 Oxygen Delivery Oxygen Delivery Room Air Shortness of Breath/Dyspnea - Differential Diagnosis Likely: acute exacerbation of chronic obstructive airways disease, congestive heart failure - Medical Records Medical records reviewed: Yes I reviewed the patient's medical records. - Lab Data Lab results reviewed: Yes I reviewed the patient's lab results. Result diagrams: 09/28/16 03:51 09/28/16 03:51 Lab Results 09/27/16 09/27/16 09/27/16 Range/Units 14:01 14:01 14:01 WBC 9.2 (4.3-11.1) K/mcL RBC 4.39 (3.82-4.97) M/mcL Hgb 12.6 D (11.5-15.4) g/dL Hct 40.6 (35.3-44.9) % MCV 92.5 (83.0-100.0) fL MCH 28.7 (28.0-33.3) pg MCHC 31.0 L (31.6-35.5) g/dL RDW 14.7 H (11.5-14.5) % Plt Count 336 (140-400) K/mcL MPV 9.7 (9.4-12.4) fL Seg Neutrophils % 95.0 % Lymphocytes % 4.0 % Monocytes % 1.0 % Neutrophils # 8.7 (1.6-8.9) K/mcL Lymphocytes # 0.4 L (0.6-4.6) K/mcL Monocytes # 0.1 (0.0-1.3) K/mcL Nucleated RBCs/100 WBC 0.3 H (0) /100 WBC Platelet Estimate Normal (Normal) VBG pH (7.32-7.42) pH Units VBG pCO2 (41-51) mmHg VBG pO2 (25-40) mmHg VBG HCO3 (21-27) mEq/L Sodium 136 (136-145) mEq/L Potassium 5.0 H (3.5-4.5) mEq/L Chloride 97 L (98-109) mEq/L Carbon Dioxide 31 H (19-29) mEq/L BUN 17 (7-20) mg/dL Creatinine 0.69 (0.57-1.11) mg/dL Est GFR ( Amer) > 60 (> 60) Est GFR (Non-Af Amer) > 60 (> 60) BUN/Creatinine Ratio 25 (6-26) Glucose 256 H (70-99) mg/dL Calculated Osmolality 292 (280-300) Lactic Acid 2.5 H (0.5-2.2) mmol/L Calcium 9.1 (8.6-10.8) mg/dL Phosphorus 2.4 (2.3-4.7) mg/dL Magnesium 1.9 (1.6-2.6) mg/dL Troponin I (0-0.03) ng/mL B-Natriuretic Peptide (0-100) pg/mL 09/27/16 09/27/16 09/27/16 Range/Units 14:01 14:01 14:46 WBC (4.3-11.1) K/mcL RBC (3.82-4.97) M/mcL Hgb (11.5-15.4) g/dL Hct (35.3-44.9) % MCV (83.0-100.0) fL MCH (28.0-33.3) pg MCHC (31.6-35.5) g/dL RDW (11.5-14.5) % Plt Count (140-400) K/mcL MPV (9.4-12.4) fL Seg Neutrophils % % Lymphocytes % % Monocytes % % Neutrophils # (1.6-8.9) K/mcL Lymphocytes # (0.6-4.6) K/mcL Monocytes # (0.0-1.3) K/mcL Nucleated RBCs/100 WBC (0) /100 WBC Platelet Estimate (Normal) VBG pH 7.47 H (7.32-7.42) pH Units VBG pCO2 43 (41-51) mmHg VBG pO2 159 H (25-40) mmHg VBG HCO3 31.3 H (21-27) mEq/L Sodium (136-145) mEq/L Potassium (3.5-4.5) mEq/L Chloride (98-109) mEq/L Carbon Dioxide (19-29) mEq/L BUN (7-20) mg/dL Creatinine (0.57-1.11) mg/dL Est GFR ( Amer) (> 60) Est GFR (Non-Af Amer) (> 60) BUN/Creatinine Ratio (6-26) Glucose (70-99) mg/dL Calculated Osmolality (280-300) Lactic Acid (0.5-2.2) mmol/L Calcium (8.6-10.8) mg/dL Phosphorus (2.3-4.7) mg/dL Magnesium (1.6-2.6) mg/dL Troponin I 0.00 (0-0.03) ng/mL B-Natriuretic Peptide 130 H (0-100) pg/mL 09/27/16 Range/Units 16:10 WBC (4.3-11.1) K/mcL RBC (3.82-4.97) M/mcL Hgb (11.5-15.4) g/dL Hct (35.3-44.9) % MCV (83.0-100.0) fL MCH (28.0-33.3) pg MCHC (31.6-35.5) g/dL RDW (11.5-14.5) % Plt Count (140-400) K/mcL MPV (9.4-12.4) fL Seg Neutrophils % % Lymphocytes % % Monocytes % % Neutrophils # (1.6-8.9) K/mcL Lymphocytes # (0.6-4.6) K/mcL Monocytes # (0.0-1.3) K/mcL Nucleated RBCs/100 WBC (0) /100 WBC Platelet Estimate (Normal) VBG pH (7.32-7.42) pH Units VBG pCO2 (41-51) mmHg VBG pO2 (25-40) mmHg VBG HCO3 (21-27) mEq/L Sodium (136-145) mEq/L Potassium (3.5-4.5) mEq/L Chloride (98-109) mEq/L Carbon Dioxide (19-29) mEq/L BUN (7-20) mg/dL Creatinine (0.57-1.11) mg/dL Est GFR ( Amer) (> 60) Est GFR (Non-Af Amer) (> 60) BUN/Creatinine Ratio (6-26) Glucose (70-99) mg/dL Calculated Osmolality (280-300) Lactic Acid 2.9 H (0.5-2.2) mmol/L Calcium (8.6-10.8) mg/dL Phosphorus (2.3-4.7) mg/dL Magnesium (1.6-2.6) mg/dL Troponin I (0-0.03) ng/mL B-Natriuretic Peptide (0-100) pg/mL - Radiology Data Radiology results reviewed: Yes I reviewed the patient's radiology results. Chest X-Ray 09/27/16 13:44 IMPRESSION: No acute cardiopulmonary disease. D/ / Cheri Marcial MD / Cheri Marcial MD Interpreting Provider: Cheri Marcial MD - EKG Data EKG attestation: Yes I reviewed and interpreted this EKG. EKG shows normal: Reports: sinus rhythm Rate: Reports: normal Rhythm: Reports: NSR (70 bpm IL 142 QRS [address] segment elevations or depressions.) Interpretation: Reports: no acute changes, unchanged when compared to prior tracing (date) - Core Measures AMI Core Measures Followed: No Measure Exclusions: not indicated Attestation Statement - Attestation Attestation: I personally interviewed and examined this patient and my medical decision- making was reviewed with the Resident Physician, Dr. Power. I agree with the documented findings, disposition and treatment plan as described except to the extent set forth below. Patient is a 48-year-old white female with a prior history of COPD who presents to the emergency department today with 4 day history of gradually worsening shortness of breath. Patient denies any fevers or chills, no production or change in cough, and complains of diffuse chest tightness with deep breathing. Patient has worsening shortness of breath with exertion, denies any diaphoresis or other associated symptoms. Patient is in mild distress with hypoxia on arrival. She is on 3 L nasal cannula O2 at home all the time. Patient was just recently discharged from [place] with a COPD exacerbation and had been on Levaquin at time of discharge. I agree patient's physical exam findings as documented. She was placed on nasal cannula O2 3 L/m, placed on monitor worker and continuous pulse ox, IV saline well was established and labs were drawn and sent and she was administered IV steroids and started on breathing treatments on arrival. Patient had some improvement but then even related to the bathroom and upon returning back from the bathroom patient was Tachycardic complaining of worsening shortness of breath lightheadedness and hypoxia. Upon resting patient felt gradually better and pulse ox improved. Patient's lab evaluation shows hyperglycemia without acidosis, and mild lactic acidosis 2.5. IV fluids were initiated. Remainder of labs are unremarkable and chest x-ray is negative for infiltrates or consolidation. Patient was started on antibiotics to cover her age Secondary to her recent hospitalization and will be readmitted for exacerbation of her COPD. Patient is hemodynamically stable at this time and O2 sats are stable on nasal cannula oxygen. Case discussed with the hospitalist who accepted the patient for admission
[2016-09-27 14:13] LABS: Hematocrit 40.6 % (35.3-44.9); Mean Corpuscular Hemoglobin 28.7 pg (28.0-33.3); Mean Corpuscular Volume 92.5 fL (83.0-100.0); Mean Platelet Volume 9.7 fL (9.4-12.4); Nucleated Red Blood Cells 0.3 /100 WBC (0); Platelet Count 336 K/mcL (140-400); Red Blood Count 4.39 M/mcL (3.82-4.97); Red Cell Distribution Width 14.7 % (11.5-14.5)
[2016-09-27 14:14] LABS: Hemoglobin 12.6 g/dL (11.5-15.4)
[2016-09-27 14:20] LABS: BUN/Creatinine Ratio 25 (6-26); Blood Urea Nitrogen 17 mg/dL (7-20); Calcium 9.1 mg/dL (8.6-10.8); Carbon Dioxide 31 mEq/L (19-29); Chloride 97 mEq/L (98-109); Glucose 256 mg/dL (70-99); Osmolality,Calculated 292 (280-300); Sodium 136 mEq/L (136-145); eGFR For African Americans > 60 (> 60); eGFR For Non-African Americans > 60 (> 60)
[2016-09-27] MEDS ORDERED: Levofloxacin 750 MG/150 ML 750 MG/150 ML BAG IVPB ONE (15:04)
[2016-09-27] MEDS ORDERED: Vancomycin 1,250 MG in D5% in Water 250 ML IVPB ONE (15:04)
[2016-09-27] MEDS ORDERED: Aztreonam 2,000 MG in D5% in Water (Mini-Bag+) 100 ML IVPB ONE (15:04)
[2016-09-27 15:09] LABS: VBG HCO3 31.3 mEq/L (21-27); VBG PH 7.47 pH Units (7.32-7.42)
[2016-09-27 15:12] LABS: Lymphocytes # 0.4 K/mcL (0.6-4.6); Monocytes # 0.1 K/mcL (0.0-1.3); Neutrophils # 8.7 K/mcL (1.6-8.9); Platelet Estimate Normal (Normal)
[2016-09-27] MEDS ORDERED: 0.9 % Sodium Chloride 1,000 ML IVC ONE ×2 (15:17)
[2016-09-27] MEDS ORDERED: 0.9 % Sodium Chloride 500 ML IVC ONE (15:17)
[2016-09-27 15:27] LABS: Magnesium 1.9 mg/dL (1.6-2.6); Phosphorous 2.4 mg/dL (2.3-4.7)
[2016-09-27] MEDS ORDERED: *HR* HYDROmorphone (PF) 1 MG/ML SYRINGE IVP ONE (15:38)
[2016-09-27] MEDS ORDERED: Ondansetron 4 MG/2 ML VIAL IVP ONE (15:38)
--- NOTE | 2016-09-27 16:53 | Electrocardiograph Report ---
[place] [employer] [facility] Test Date: 2016-09-27 Pat Name: Nora Ren Department: 104 Room: 3A37 Gender: F [employer] Main[employer] Developer: IWONA : 1960 Requested By: Rodolfo Power Order Number: [id number] Reading MD: Enrique Gomez MD Measurements Intervals [place] Rate: 70 P: 42 OR: 142 QRS: 41 QRSD: 85 T: 39 QT: 370 QTc: 391 Interpretive Statements SINUS RHYTHM wnl Electronically Signed On 09-27-2016 16:52:18 EDT by Enrique Gomez MD
[2016-09-27] MEDS ORDERED: Calcium Gluconate 1,000 MG in D5% in Water 100 ML IVPB ONE (18:01)
[2016-09-27] MEDS ORDERED: *HR* OxyCODONE Immed Rel 5 MG TABLET PO PRN (18:37)
--- NOTE | 2016-09-27 18:43 | Internal Med History&Physical ---
Date of Encounter: 09/27/16 Time of Encounter: 18:40 Assessment and Plan (1) Acute exacerbation of chronic obstructive airways disease Current visit: No Status: Acute Start the patient on Solu-Medrol, [id number] nebulizer treatment, Levaquin for acute bronchitis. (2) Diabetes mellitus Current visit: No Status: Chronic Continue home regimen in addition to sliding scale insulin. Expected worsening of diabetes because of steroid. Adjust insulin dose accordingly Qualifiers: Diabetes mellitus type: type 2 Diabetes mellitus complication status: with hyperglycemia Diabetes mellitus shelter insulin use: with shelter use Qualified Code(s): E11.65 - Type 2 diabetes mellitus with hyperglycemia; Z79.4 - shelter (current) 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 (3) Hypertension Current visit: No Status: Chronic Continue home medications Qualifiers: Hypertension type: essential hypertension Qualified Code(s): I10 - Essential (primary) hypertension (4) Lactic acidosis Current visit: Yes Status: Acute Likely due to COPD exacerbation and acute bronchitis. Patient will be kept on Levaquin 750 mg intravenous daily. 2-hour lactic acid increased to 2.9 from 2.5. Patient will be hydrated. Internal Medicine - H&P: HPI Chief complaint: sob History of present illness: Ms. Ren is a 56 year old female with history of COPD on 3 L home oxygen discharge from the hospital 5 days ago after hospitalization with a COPD exacerbation still taking steroids presented emergency room today with the main complaining of shortness of breath. A day after hospital discharge patient again started noticing wars think shortness of breath that has been progressive over the past 3 days. She has chills but no fevers. Her COPD has been poorly controlled at least over the past year. Over the past 6 months she had required approximately once monthly hospitalization. Past Med Surg Social Fam HX - Past Medical History Medical history: asthma, COPD, diabetes, GERD, hyperlipidemia, hypertension, renal disease, other Psychiatric history: anxiety - Past Surgical History Surgical History: appendectomy, cholecystectomy, knee replacement, other - Social History Smoking Status: Former smoker Smokeless Tobacco Status: No Alcohol use: none Drug use: none - Family History Father Family Member Ethnicity: Non- Living Status: Hx Family Cardiac Disorders: Yes (atherrosclerosis) Mother Family Member Ethnicity: Non- Living Status: Still Living Hx Family Cardiac Disorders: Yes (Hypertension) Hx Family Respiratory Disorders: No Hx Family Cancer: No Hx Family GI Disorders: No Hx Family Endocrine Disorder: Yes (Diabetes mellitus) Hx Family Neuromuscular Disorders: No Hx Family Neurologic Disorders: No Hx Family HEENT Disorders: No Hx Family Autoimmune Disorders: No Internal Medicine - H&P: Meds Pantoprazole Sodium [Protonix] 40 mg PO DAILY 02/10/15 [History] Losartan/Hydrochlorothiazide [Losartan-Hctz 100-25 mg Tab] 1 tab PO DAILY [History] Ipratropium/Albuterol Neb [Duoneb] 3 ml IH Q6HR PRN #90 vial.neb 05/02/16 [Rx] cloNIDine HCl [Clonidine HCl] 0.3 mg PO QID 05/16/16 [History] Aspirin 81 mg PO DAILY 07/19/16 [History] Oxycodone HCl [Oxaydo] 5 mg PO Q8H PRN 07/19/16 [History] Oxygen 3 l .ROUTE AD 07/19/16 [History] Ranitidine HCl [Zantac] 150 mg PO DAILY 07/19/16 [History] clonazePAM [Klonopin] 1 mg PO BID 07/31/16 [History] Insulin Glargine [Lantus] 32 unit SQ HS 08/10/16 [History] Insulin LISPRO [HumaLOG] 0 units SQ TIDWM 08/10/16 [History] Roflumilast [Daliresp] 500 mcg PO DAILY 08/10/16 [History] Umeclidinium Brm/Vilanterol Tr [Anoro Ellipta 62.5-25 Mcg INH] 1 puff IH DAILY 08/10/16 [History] Albuterol Sulfate [Ventolin Hfa] 2 puff IH Q4H PRN 09/19/16 [History] Amlodipine Besylate 2.5 mg PO HS 09/19/16 [History] Loratadine [Allergy Relief] 10 mg PO DAILY 09/19/16 [History] Meclizine [Antivert] 25 mg PO TID PRN 09/19/16 [History] Sucralfate [Carafate] 1 gm PO QIDAC #120 tab 09/22/16 [Rx] predniSONE [PredniSONE] See Taper PO DAILY 09/27/16 [History] Allergies NSAIDS (Non-Steroidal Anti-Inflamma Allergy (Unknown, Verified 09/27/16 13:34) See Comments Listed on ECW under allergies- Unknown Reaction Penicillins Allergy (Unknown, Verified 09/27/16 13:34) Hives lisinopril Adverse Reaction (Verified 09/27/16 13:34) Cough tramadol Adverse Reaction (Verified 09/27/16 13:34) Nausea All Systems PM: A 10-system review of systems was performed and is negative for pertinent findings except as documented above in the HPI. Review of systems: 10 point review of systems is negative except for HPI - Constitutional Vitals: Temp Pulse Resp BP Pulse Ox 98.0 F 80 16 165/88 96 09/27/16 18:06 09/27/16 18:06 09/27/16 18:06 09/27/16 18:06 09/27/16 18:06 Exam: Gen.: patient is alert oriented times 3 not in distress cardiac: normal S1 S2 no additional sounds are murmurs chest: diminished air entry inspiratory and expiratory wheezing abdomen: soft nontender nondistended normal bowel sounds lower extremity: no swelling Internal Med - H&P Results - Labs CBC & Chem 7: 09/27/16 14:01 09/27/16 14:01
[2016-09-27] MEDS ORDERED: NON-FORMULARY MEDICATION 1 EACH EACH (Oxygen [Oxygen] 3 L) SCH (18:45)
[2016-09-27] MEDS: Ipratropium/Albuterol Neb 3 ML IH SCH ×2 (19:39→23:11)
[2016-09-27] MEDS: 0.9 % Sodium Chloride 1,000 ML IVC SCH (20:08)
[2016-09-27] MEDS: Insulin LISPRO 300 UNITS/3 ML VIAL SQ SCH (21:23)
[2016-09-27] MEDS: amLODIPine 5 MG TABLET PO SCH (21:24)
[2016-09-27] MEDS: *HR* Heparin 5,000 UNIT/ML VIAL SQ SCH (21:24)
[2016-09-27] MEDS: clonazePAM 1 MG TABLET PO SCH (21:24)
[2016-09-27] MEDS: cloNIDine HCl 0.1 MG TABLET PO SCH (21:24)
[2016-09-27] MEDS: Insulin DETEMIR 100 UNIT/ML X5UNITS SQ SCH (22:01)
[2016-09-27] MEDS: Ondansetron 4 MG/2 ML VIAL IVP PRN (22:01)
[2016-09-28] MEDS: methylPREDNISolone 125 MG/2 ML VIAL IVP SCH ×5 (00:04→22:07)
[2016-09-28] MEDS: *HR* OxyCODONE Immed Rel 5 MG TABLET PO PRN ×4 (03:24→22:07)
[2016-09-28] MEDS: Ipratropium/Albuterol Neb 3 ML IH SCH ×6 (03:58→23:50)
[2016-09-28 04:49] LABS: Basophils # 0.1 K/mcL (0.0-0.2); Basophils % 0.9 %; Hematocrit 39.6 % (35.3-44.9); Hemoglobin 12.7 g/dL (11.5-15.4); Immature Granulocytes % 5.4 % (0-4); Lymphocytes # 0.6 K/mcL (0.6-4.6); Lymphocytes % 4.2 %; Mean Corpuscular HGB Conc 32.1 g/dL (31.6-35.5); Mean Corpuscular Hemoglobin 29.3 pg (28.0-33.3); Mean Corpuscular Volume 91.2 fL (83.0-100.0); Mean Platelet Volume 10.2 fL (9.4-12.4); Monocytes # 0.3 K/mcL (0.0-1.3); Monocytes % 2.2 %; Neutrophils # 11.8 K/mcL (1.6-8.9); Nucleated Red Blood Cells 0.1 /100 WBC (0); Platelet Count 334 K/mcL (140-400); Red Blood Count 4.34 M/mcL (3.82-4.97); Red Cell Distribution Width 14.6 % (11.5-14.5); Segmented Neutrophils % 87.3 %
[2016-09-28 05:04] LABS: BUN/Creatinine Ratio 26 (6-26); Blood Urea Nitrogen 19 mg/dL (7-20); Calcium 9.2 mg/dL (8.6-10.8); Carbon Dioxide 27 mEq/L (19-29); Chloride 98 mEq/L (98-109); Glucose 268 mg/dL (70-99); Magnesium 1.8 mg/dL (1.6-2.6); Osmolality,Calculated 294 (280-300); Potassium 4.2 mEq/L (3.5-4.5); Sodium 136 mEq/L (136-145); eGFR For African Americans > 60 (> 60); eGFR For Non-African Americans > 60 (> 60)
[2016-09-28] MEDS ORDERED: SUMAtriptan succinate 50 MG TABLET PO ONE (05:17)
[2016-09-28] MEDS ORDERED: *HR* Morphine 2 MG/ML SYRINGE IVP ONE (05:24)
[2016-09-28 05:37] LABS: Platelet Estimate Normal (Normal)
[2016-09-28] MEDS: *HR* Heparin 5,000 UNIT/ML VIAL SQ SCH ×3 (05:37→22:09)
[2016-09-28] MEDS: Ondansetron 4 MG/2 ML VIAL IVP PRN ×3 (05:45→20:13)
[2016-09-28] MEDS ORDERED: NON-FORMULARY MEDICATION 1 EACH EACH (Losartan/Hydrochlorothiazide [Losartan-Hctz 100-25 M PO SCH (09:00)
[2016-09-28] MEDS: cloNIDine HCl 0.1 MG TABLET PO SCH ×4 (09:26→20:09)
[2016-09-28] MEDS: Aspirin 81 MG TAB.CHEW PO SCH (09:26)
[2016-09-28] MEDS: Insulin LISPRO 300 UNITS/3 ML VIAL SQ SCH ×4 (09:27→22:09)
[2016-09-28] MEDS: hydroCHLOROthiazide 25 MG TABLET PO SCH (09:27)
[2016-09-28] MEDS: clonazePAM 1 MG TABLET PO SCH ×2 (09:27→20:09)
[2016-09-28] MEDS: Loratadine 10 MG TABLET PO SCH (09:27)
[2016-09-28] MEDS: Levofloxacin 750 MG/150 ML 750 MG/150 ML BAG IVPB SCH (09:28)
[2016-09-28] MEDS ORDERED: *HR* Dextrose 50 % in Water (Syg) 50 ML SYRINGE IVP PRN (12:00)
[2016-09-28] MEDS ORDERED: Dextrose Gel 15 GM PO PRN ×2 (12:00)
[2016-09-28] MEDS ORDERED: D5% in Water 1,000 ML IVC PRN (12:00)
[2016-09-28] MEDS: 0.9 % Sodium Chloride 1,000 ML IVC SCH (13:02)
[2016-09-28] MEDS ORDERED: Acetaminophen/Butalbital/CaffeineTABLET PO PRN (14:16)
--- NOTE | 2016-09-28 14:37 | Internal Med Progress Note ---
Date of Encounter: 09/28/16 Time of Encounter: 11:45 - Assessment and plan (1) Acute on chronic respiratory failure Current Visit: Yes Status: Acute Assessment and plan: Due to COPD exacerbation. Treat underlying COPD exacerbation. Height is for complications. Qualifiers: Respiratory failure complication: hypoxia and hypercapnia Qualified Code(s) : J96.21 - Acute and chronic respiratory failure with hypoxia; J96.22 - Acute and chronic respiratory failure with hypercapnia (2) Acute exacerbation of chronic obstructive airways disease Current Visit: Yes Status: Acute Assessment and plan: Continue current management with IV steroids, bronchodilators, IV Levaquin and O2 supplementation. (3) Headache Current Visit: Yes Status: Acute Assessment and plan: Patient with acute intractable headache. Denies history of migraines. Will treat with Fioricet. No photophobia or aura Qualifiers: Headache type: tension-type Headache chronicity pattern: acute headache Intractability: intractable Qualified Code(s): G44.201 - Tension-type headache , unspecified, intractable (4) Diabetes mellitus Current Visit: Yes Status: Chronic Assessment and plan: Uncontrolled blood sugars. A1c was 8.5% in July. We will increase insulin regimen and place patient on high dose correctional sliding scale. Continue to monitor blood sugars closely. Qualifiers: Diabetes mellitus type: type 2 Diabetes mellitus complication status: with hyperglycemia Diabetes mellitus chcf insulin use: with exterminator helper termite use Qualified Code(s): E11.65 - Type 2 diabetes mellitus with hyperglycemia; Z79.4 - care home (current) 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 (5) Hypertension Current Visit: Yes Status: Chronic Assessment and plan: Intermittently elevated. Has been placed back on home medications including clonidine and losartan. We will continue to monitor blood pressure closely. Qualifiers: Hypertension type: essential hypertension Qualified Code(s): I10 - Essential (primary) hypertension (6) Lactic acidosis Current Visit: Yes Status: Acute Assessment and plan: Recheck lactic acid levels. (7) Chronic pain Current Visit: Yes Status: Chronic Assessment and plan: Patient complaining of chronic pain involving her back and across her chest. Patient takes oxycodone at home. We will continue this medication. Troponins have been negative. Qualifiers: Chronic pain type: other chronic pain Qualified Code(s): G89.29 - Other chronic pain - Subjective Interval history: Patient complaining of difficulty breathing along with headache and nausea. Able to complete full sentences. Also complains of some chest discomfort that is in form of a band right across her chest and into her back. Also has chronic pain in her back. Reports that her pain and shortness of breath symptoms have been going on for 2 weeks. Denies any fever or chills. No hemoptysis. - Constitutional Vitals: Temp Pulse Resp BP Pulse Ox 97.0 F L 104 18 152/83 95 09/28/16 10:54 09/28/16 10:54 09/28/16 11:39 09/28/16 10:54 09/28/16 11:39 General appearance: Present: cooperative, mild distress, A&O X 3, answers questions appropriately - Neck Neck exam general surgery: Present: supple, trachea midline. Absent: lymphadenopathy - Respiratory Respiratory exam: Present: chest wall tenderness (sternal), decreased breath sounds (Decreased air entry bilaterally), prolonged expiratory phase. Absent: accessory muscle use, rales, rhonchi, wheezes - Cardiovascular Cardiovascular exam: Present: RRR, +S1, +S2, tachycardia. Absent: diastolic murmur, gallop, rubs, systolic murmur - GI/Abdominal GI/Abdominal exam: Present: normal bowel sounds, soft, no peritoneal signs. Absent: distended, tenderness - Extremities Exam Extremities exam: Present: warm, radial pulses palpable and symetrical. Absent : calf tenderness, cyanotic, pedal edema - Neurological Exam Neurological exam: Present: oriented X3, no focal deficits, strengths equal and symetr throughout. Absent: facial droop, speech deficit - Skin Skin exam: Present: dry, intact Internal Medicine: Result - Labs CBC & Chem 7: 09/28/16 03:51 09/28/16 03:51 Labs: Short CBC 09/28/16 Range/Units 03:51 WBC 13.5 H (4.3-11.1) K/mcL Hgb 12.7 (11.5-15.4) g/dL Hct 39.6 (35.3-44.9) % Plt Count 334 (140-400) K/mcL Neutrophils # 11.8 H (1.6-8.9) K/mcL BMP 09/28/16 03:51 Sodium 136 Potassium 4.2 Chloride 98 Carbon Dioxide 27 BUN 19 Creatinine 0.74 Glucose 268 H Calcium 9.2 Consult Discharge Plan - Plan Referrals: Le,Tri H, MD [Non-Partnered Physician] -
[2016-09-28] MEDS: *HR* Promethazine 25 MG/ML VIAL IVP PRN (16:19)
[2016-09-28] MEDS: amLODIPine 5 MG TABLET PO SCH (20:09)
[2016-09-28] MEDS: Insulin DETEMIR 100 UNIT/ML X5UNITS SQ SCH (22:09)
[2016-09-29] MEDS: *HR* Promethazine 25 MG/ML VIAL IVP PRN ×3 (00:33→16:40)
[2016-09-29] MEDS: *HR* OxyCODONE Immed Rel 5 MG TABLET PO PRN ×4 (03:49→22:34)
[2016-09-29] MEDS: 0.9 % Sodium Chloride 1,000 ML IVC SCH (03:49)
[2016-09-29] MEDS: Ondansetron 4 MG/2 ML VIAL IVP PRN ×3 (03:53→21:06)
[2016-09-29] MEDS: *HR* Heparin 5,000 UNIT/ML VIAL SQ SCH ×3 (04:02→21:06)
[2016-09-29] MEDS: methylPREDNISolone 125 MG/2 ML VIAL IVP SCH (04:02)
[2016-09-29] MEDS: Ipratropium/Albuterol Neb 3 ML IH SCH ×5 (04:22→20:40)
[2016-09-29 06:46] LABS: Basophils # 0.1 K/mcL (0.0-0.2); Basophils % 0.4 %; Immature Granulocytes % 4.3 % (0-4); Lymphocytes # 0.4 K/mcL (0.6-4.6); Lymphocytes % 3.3 %; Mean Corpuscular HGB Conc 30.8 g/dL (31.6-35.5); Mean Corpuscular Hemoglobin 28.8 pg (28.0-33.3); Mean Corpuscular Volume 93.3 fL (83.0-100.0); Mean Platelet Volume 9.9 fL (9.4-12.4); Monocytes # 0.4 K/mcL (0.0-1.3); Monocytes % 2.7 %; Neutrophils # 11.9 K/mcL (1.6-8.9); Platelet Count 294 K/mcL (140-400); Red Blood Count 3.86 M/mcL (3.82-4.97); Red Cell Distribution Width 14.8 % (11.5-14.5); Segmented Neutrophils % 89.3 %
[2016-09-29 06:51] LABS: Hemoglobin 11.1 g/dL (11.5-15.4)
[2016-09-29 07:02] LABS: BUN/Creatinine Ratio 36 (6-26); Blood Urea Nitrogen 28 mg/dL (7-20); Calcium 8.9 mg/dL (8.6-10.8); Carbon Dioxide 29 mEq/L (19-29); Chloride 99 mEq/L (98-109); Glucose 288 mg/dL (70-99); Osmolality,Calculated 300 (280-300); Potassium 4.1 mEq/L (3.5-4.5); Sodium 137 mEq/L (136-145); eGFR For African Americans > 60 (> 60); eGFR For Non-African Americans > 60 (> 60)
[2016-09-29] MEDS: Levofloxacin 750 MG/150 ML 750 MG/150 ML BAG IVPB SCH (08:37)
[2016-09-29] MEDS: cloNIDine HCl 0.1 MG TABLET PO SCH ×4 (08:39→21:05)
[2016-09-29] MEDS: Loratadine 10 MG TABLET PO SCH (08:40)
[2016-09-29] MEDS: clonazePAM 1 MG TABLET PO SCH ×2 (08:40→21:05)
[2016-09-29] MEDS: Aspirin 81 MG TAB.CHEW PO SCH (08:40)
[2016-09-29] MEDS: hydroCHLOROthiazide 25 MG TABLET PO SCH (08:41)
[2016-09-29] MEDS: Insulin LISPRO 300 UNITS/3 ML VIAL SQ SCH ×5 (08:47→21:05)
[2016-09-29] MEDS: Insulin DETEMIR 100 UNIT/ML X5UNITS SQ SCH ×2 (08:54→21:06)
--- NOTE | 2016-09-29 16:12 | Internal Med Progress Note ---
Date of Encounter: 09/29/16 Time of Encounter: 10:45 - Assessment and plan (1) Acute on chronic respiratory failure Current Visit: Yes Status: Acute Assessment and plan: Continue O2 supplementation. Continue treatment for underlying COPD. patient currently on baseline O2 supplementation. Moderate risk for complications. Qualifiers: Respiratory failure complication: hypoxia and hypercapnia Qualified Code(s) : J96.21 - Acute and chronic respiratory failure with hypoxia; J96.22 - Acute and chronic respiratory failure with hypercapnia (2) Acute exacerbation of chronic obstructive airways disease Current Visit: Yes Status: Acute Assessment and plan: Clinically getting better. On 3 L nasal cannula O2 supplementation. We will wean and taper steroids. Continue duo nebs. (3) Headache Current Visit: Yes Status: Acute Assessment and plan: Persistent. Advised patient to take Fioricet as prescribed for symptom relief. Qualifiers: Headache type: tension-type Headache chronicity pattern: acute headache Intractability: intractable Qualified Code(s): G44.201 - Tension-type headache , unspecified, intractable (4) Diabetes mellitus Current Visit: Yes Status: Chronic Assessment and plan: Remains uncontrolled. We will add nutritional insulin in addition to long- acting and correctional scale. 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 Patient is on amlodipine, losartan and clonidine. Will increase amlodipine dosage. Qualifiers: Hypertension type: essential hypertension Qualified Code(s): I10 - Essential (primary) hypertension (6) Lactic acidosis Current Visit: Yes Status: Acute Assessment and plan: Improving (7) Chronic pain Current Visit: Yes Status: Chronic Assessment and plan: Continue home medications. Qualifiers: Chronic pain type: other chronic pain Qualified Code(s): G89.29 - Other chronic pain - Subjective Interval history: Patient feels tired and continues to have headache but has been refusing to take Fioricet. Instead asking for oxycodone. Shortness of breath improving. No wheezing reported. No fever chills or night sweats reported overnight - Constitutional Vitals: Temp Pulse Resp BP Pulse Ox 97.6 F 77 16 147/79 97 09/29/16 15:00 09/29/16 15:00 09/29/16 15:00 09/29/16 15:00 09/29/16 15:00 General appearance: Present: cooperative, mild distress, A&O X 3, answers questions appropriately - Neck Neck exam general surgery: Present: supple, trachea midline. Absent: lymphadenopathy - Respiratory Respiratory exam: Present: chest wall tenderness (Lateral), decreased breath sounds (Decreased air entry bilaterally). Absent: accessory muscle use, rales, rhonchi - Cardiovascular Cardiovascular exam: Present: RRR, +S1, +S2. Absent: diastolic murmur, gallop, rubs, systolic murmur - GI/Abdominal GI/Abdominal exam: Present: normal bowel sounds, soft, no peritoneal signs. Absent: distended, tenderness - Extremities Exam Extremities exam: Present: warm, radial pulses palpable and symmetrical. Absent : calf tenderness, cyanotic, pedal edema Internal Medicine: Result - Labs CBC & Chem 7: 09/29/16 05:48 09/29/16 05:48 Labs: Short CBC 09/29/16 Range/Units 05:48 WBC 13.4 H (4.3-11.1) K/mcL Hgb 11.1 L D (11.5-15.4) g/dL Hct 36.0 (35.3-44.9) % Plt Count 294 (140-400) K/mcL Neutrophils # 11.9 H (1.6-8.9) K/mcL BMP 09/29/16 05:48 Sodium 137 Potassium 4.1 Chloride 99 Carbon Dioxide 29 BUN 28 H Creatinine 0.77 Glucose 288 H Calcium 8.9 Consult Discharge Plan - Plan Referrals: Domitila Lau MD [Non-Partnered Physician] -
[2016-09-29] MEDS ORDERED: amLODIPine 5 MG TABLET PO SCH (16:25)
[2016-09-29] MEDS: Acetaminophen 325 MG TABLET PO PRN (22:34)
[2016-09-30] MEDS: Ipratropium/Albuterol Neb 3 ML IH SCH ×3 (00:17→07:44)
[2016-09-30] MEDS: *HR* Promethazine 25 MG/ML VIAL IVP PRN ×2 (01:09→09:15)
[2016-09-30] MEDS: *HR* OxyCODONE Immed Rel 5 MG TABLET PO PRN (04:45)
[2016-09-30] MEDS: Ondansetron 4 MG/2 ML VIAL IVP PRN (04:45)
[2016-09-30] MEDS: Acetaminophen 325 MG TABLET PO PRN (04:45)
[2016-09-30] MEDS: *HR* Heparin 5,000 UNIT/ML VIAL SQ SCH (05:44)
[2016-09-30] MEDS: Insulin LISPRO 300 UNITS/3 ML VIAL SQ SCH ×2 (07:31→07:42)
[2016-09-30] MEDS: clonazePAM 1 MG TABLET PO SCH (07:32)
[2016-09-30] MEDS: Aspirin 81 MG TAB.CHEW PO SCH (07:33)
[2016-09-30] MEDS: Loratadine 10 MG TABLET PO SCH (07:33)
[2016-09-30] MEDS: hydroCHLOROthiazide 25 MG TABLET PO SCH (07:33)
[2016-09-30] MEDS: Levofloxacin 750 MG/150 ML 750 MG/150 ML BAG IVPB SCH (07:34)
[2016-09-30 07:38] VITALS: BP 152/85
[2016-09-30] MEDS: cloNIDine HCl 0.1 MG TABLET PO SCH (07:53)
[2016-09-30] MEDS ORDERED: predniSONE 20 MG TABLET PO SCH (09:00)
--- NOTE | 2016-09-30 10:06 | Discharge Summary ---
Date of Encounter: 09/30/16 Time of Encounter: 09:45 - Discharge Diagnosis (1) Acute exacerbation of chronic obstructive airways disease Priority: Primary Status: Acute (2) Acute on chronic respiratory failure Priority: Secondary Status: Acute Qualifiers: Respiratory failure complication: hypoxia and hypercapnia Qualified Code(s) : J96.21 - Acute and chronic respiratory failure with hypoxia; J96.22 - Acute and chronic respiratory failure with hypercapnia (3) Headache Priority: Secondary Status: Acute Qualifiers: Headache type: tension-type Headache chronicity pattern: acute headache Intractability: intractable Qualified Code(s): G44.201 - Tension-type headache , unspecified, intractable (4) Diabetes mellitus Priority: Secondary Status: Chronic Qualifiers: Diabetes mellitus type: type 2 Diabetes mellitus complication status: with hyperglycemia 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 mellitus 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 insulin use: with long-term use Qualified Code(s): E11.65 - Type 2 diabetes mellitus with hyperglycemia; Z79.4 - terminal operator (current) 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 (5) Hypertension Priority: Secondary Status: Chronic Qualifiers: Hypertension type: essential hypertension Qualified Code(s): I10 - Essential (primary) hypertension (6) Lactic acidosis Priority: Secondary Status: Acute (7) Chronic pain Priority: Secondary Status: Chronic Qualifiers: Chronic pain type: other chronic pain Qualified Code(s): G89.29 - Other chronic pain - Discharge Medications Prescriptions: amLODIPine [Norvasc] 5 mg PO HS #30 tab predniSONE [PredniSONE] 10 mg PO DAILY 12 Days Home Medications: Pantoprazole Sodium [Protonix] 40 mg PO DAILY 02/10/15 [History] Losartan/Hydrochlorothiazide [Losartan-Hctz 100-25 mg Tab] 1 tab PO DAILY [History] Ipratropium/Albuterol Neb [Duoneb] 3 ml IH Q6HR PRN #90 vial.neb 05/02/16 [Rx] cloNIDine HCl [Clonidine HCl] 0.3 mg PO QID 05/16/16 [History] Aspirin 81 mg PO DAILY 07/19/16 [History] Oxycodone HCl [Oxaydo] 5 mg PO Q8H PRN 07/19/16 [History] Oxygen 3 l .ROUTE AD 07/19/16 [History] Ranitidine HCl [Zantac] 150 mg PO DAILY 07/19/16 [History] clonazePAM [Klonopin] 1 mg PO BID 07/31/16 [History] Insulin Glargine [Lantus] 32 unit SQ HS 08/10/16 [History] Insulin LISPRO [HumaLOG] 0 units SQ TIDWM 08/10/16 [History] Roflumilast [Daliresp] 500 mcg PO DAILY 08/10/16 [History] Umeclidinium Brm/Vilanterol Tr [Anoro Ellipta 62.5-25 Mcg INH] 1 puff IH DAILY 08/10/16 [History] Albuterol Sulfate [Ventolin Hfa] 2 puff IH Q4H PRN 09/19/16 [History] Loratadine [Allergy Relief] 10 mg PO DAILY 09/19/16 [History] Meclizine [Antivert] 25 mg PO TID PRN 09/19/16 [History] Sucralfate [Carafate] 1 gm PO QIDAC #120 tab 09/22/16 [Rx] amLODIPine [Norvasc] 5 mg PO HS #30 tab 09/30/16 [Rx] predniSONE [PredniSONE] 10 mg PO DAILY 12 Days 09/30/16 [Rx] Allergies/Adverse Reactions: Allergies NSAIDS (Non-Steroidal Anti-Inflamma Allergy (Unknown, Verified 09/27/16 13:34) See Comments Listed on ECW under allergies- Unknown Reaction Penicillins Allergy (Unknown, Verified 09/27/16 13:34) Hives lisinopril Adverse Reaction (Verified 09/27/16 13:34) Cough tramadol Adverse Reaction (Verified 09/27/16 13:34) Nausea Procedures/tests Complete & Pending: Procedures Performed prior 72 hours Category Date Time Status EKG [ECG 12 lead ECG] [ECG] Stat Y 09/28/16 05:25 Ordered Date of admission: 09/27/16 18:34 Primary care physician: PCP NONE Consults: 09/28/16 07:47 OT [Consult to Occupational Therapy] [CONS] Routine Comment: Evaluate, develop and implement POC Reason for Consult: discharge planning Discharging clinician: Chano Aparicio Anticipated date of discharge: 09/30/16 - Patient Status Disposition: Home, Self-Care Condition: Fair Functional capacity at discharge: independent ambulation Overall status at discharge: patient is progressing back to baseline - Discharge Instructions Instructions: Chronic Obstructive Pulmonary Disease (DC) Follow Up With: Latrell Hogan MD [Partnered Physician] - 10/10/16 8:45 am Domitila Lau MD [Non-Partnered Physician] - 10/05/16 12:00 pm - Diet and Activity Activity: increase activity as tolerated, wear oxygen at all times Diet: diabetic diet, low fat, low cholesterol, low salt diet Hospital course: Ms. Ren is a 56 year old female patient with a history of COPD, type 2 diabetes mellitus, hypertension who was admitted here with acute exacerbation of COPD and lactic acidosis. She was treated with IV fluids, bronchodilators and O2 supplementation with improvement in her symptoms. She had also been complaining of chest pain and back pain that had been ongoing for the past 2-3 weeks. Her troponins were negative. Patient had just been discharged from the hospital a week prior on tapering dose of steroids and levofloxacin. This time her chest x-ray did not show any acute infiltrate. Her white count kwasi the day after hospitalization most likely due to steroids. They have started to trend down. Currently the patient is back to her baseline O2 supplementation and is stable to be discharged home. Patient had been complaining of headache care. Refused to take furosemide that was ordered and instructed continue to ask for narcotic medications. Also her blood sugars were elevated due to use of steroids and patient was treated for this with combination of Levemir and sliding scale insulin. At this time she is stable to be discharged home on tapering dose of steroids. I do not believe she needs any further antibiotics as she has completed almost 10 days of treatment with Levaquin. She was evaluated by physical therapy and recommended home health. However patient refused this. - Time Spent with Patient Total time spent providing and/or coordinating discharge services: Greater than 30 minutes (32 min) - Constitutional Vitals: Temp Pulse Resp BP Pulse Ox 97.6 F 75 16 152/85 96 09/30/16 07:00 09/30/16 07:00 09/30/16 07:44 09/30/16 07:00 09/30/16 07:44 General appearance: Present: cooperative, mild distress, A&O X 3, obese, answers questions appropriately - Respiratory Respiratory exam: Present: decreased breath sounds (Decreased air entry bilaterally), prolonged expiratory phase. Absent: accessory muscle use, rales, rhonchi, wheezes - Cardiovascular Cardiovascular exam: Present: RRR, +S1, +S2. Absent: diastolic murmur, gallop, rubs, systolic murmur - GI/Abdominal GI/Abdominal exam: Present: normal bowel sounds, soft, no peritoneal signs. Absent: distended, tenderness
[2016-09-30] MEDS: Insulin DETEMIR 100 UNIT/ML X5UNITS SQ SCH (10:12)
== END 2016-09-30 10:45 | disposition home or self-care (01) | DRG 190 ==
LOC: 3ANU 13:30 → EMEROO 13:30 → 3ANU 17:16 → SUATTDRO 18:34
PROVIDERS: ADMIT Internal Medicine Endocrinology, Diabetes & Metabolism; ATTEND Internal Medicine

== ENCOUNTER 2016-10-10 19:53 | Observation (INO) ==
[2016-10-10] MEDS ORDERED: methylPREDNISolone 125 MG/2 ML VIAL IVP ONE (20:23)
--- NOTE | 2016-10-10 20:27 | Emergency Department Note ---
Disposition Clinical Impression: COPD exacerbation, Respiratory distress, Hypoxia Disposition: Admitted As Inpatient Condition: Fair Time of Disposition: 00:00 SOB HPI - General Chief Complaint: ED Shortness of Breath/Dyspnea Stated Complaint: COPD / LESTER Time Seen by Provider: 10/10/16 20:16 Source: patient, family Limitations: no limitations Nursing Notes Reviewed: Yes Vital Signs Reviewed: Yes - History of Present Illness 56-year-old female history of COPD on 3 L home oxygen supplementation presents with difficulty in breathing. Symptoms started yesterday complaining of increase worker breathing and difficulty moving air in and out. Reports say productive cough yellow and green which is new. She has some associated chest tightness. Denies any fever. She was recently discharged from the hospital for COPD exacerbation and just finished a steroid taper yesterday. She does report her cheese tester Dr. Nelson is attempting to keep her off steroids long -term. She has some associated nausea. Denies any other symptoms such as headache, abdominal pain, urinary symptoms. She was given antibiotics during her admission as well. She is currently 95% and in no acute respiratory distress. She has some slight wheezes onto the anterior chest and decreased diminished sounds on the posterior lung salazar. Pt Subjective Complaint: shortness of breath - Related Data Home Medications Medication Instructions Recorded Confirmed Pantoprazole Sodium [Protonix] 40 mg PO DAILY 02/10/15 10/11/16 cloNIDine HCl [Clonidine HCl] 0.3 mg PO QID 05/16/16 10/11/16 Aspirin 81 mg PO DAILY 07/19/16 10/11/16 Oxycodone HCl [Oxaydo] 5 mg PO Q8H PRN 07/19/16 10/11/16 Oxygen 3 l .ROUTE AD 07/19/16 10/11/16 Ranitidine HCl [Zantac] 150 mg PO DAILY 07/19/16 10/11/16 clonazePAM [Klonopin] 1 mg PO BID 07/31/16 10/11/16 Insulin Glargine [Lantus] 32 unit SQ HS 08/10/16 10/11/16 Insulin LISPRO [HumaLOG] 0 units SQ TIDWM 08/10/16 10/11/16 Roflumilast [Daliresp] 500 mcg PO DAILY 08/10/16 10/11/16 Umeclidinium Brm/Vilanterol Tr 1 puff IH DAILY 08/10/16 10/11/16 [Anoro Ellipta 62.5-25 Mcg INH] Albuterol Sulfate [Ventolin Hfa] 2 puff IH Q4H PRN 09/19/16 10/11/16 Meclizine [Antivert] 25 mg PO TID PRN 09/19/16 10/11/16 Previous Rx's Medication Instructions Recorded Ipratropium/Albuterol Neb [Duoneb] 3 ml IH Q6HR PRN #90 vial.neb 05/02/16 Sucralfate [Carafate] 1 gm PO QIDAC #120 tab 09/22/16 amLODIPine [Norvasc] 5 mg PO HS #30 tab 09/30/16 predniSONE [PredniSONE] 10 mg PO DAILY 12 Days 09/30/16 Allergies Allergy/AdvReac Type Severity Reaction Status Date / Time NSAIDS (Non-Steroidal Allergy Unknown See Verified 10/10/16 20:01 Anti-Inflamma Comments Penicillins Allergy Unknown Hives Verified 10/10/16 20:01 lisinopril AdvReac Cough Verified 10/10/16 20:01 tramadol AdvReac Nausea Verified 10/10/16 20:01 All systems ED: reviewed and negative except as stated. Review of Systems: As Per HPI Constitutional: Denies: fever, chills Cardiovascular: Reports: dyspnea on exertion. Denies: chest pain Respiratory: Reports: cough, dyspnea, wheezes. Denies: hemoptysis Gastrointestinal: Reports: nausea. Denies: abdominal pain, vomiting, diarrhea Genitourinary: Denies: urgency, dysuria Musculoskeletal: Denies: back pain, neck pain Integumentary: Denies: rash, abrasion, lesions Neurological: Denies: headache, weakness, numbness Past Medical History - Past Medical History Attestation: Yes The following information was validated with the patient. 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 Absent : tenderness - Respiratory Respiratory exam: Present: respiratory distress, wheezes (anterior lung salazar) . Absent: normal lung sounds bilaterally - Expanded Respiratory Exam Location: decreased breath sounds: Upper (posterior) - Cardiovascular Cardiovascular exam: Present: regular rate, normal rhythm, normal heart sounds - Abdominal Exam Abdominal exam: Present: soft, Non-Tender, normal bowel sounds. Absent: tenderness, distention, guarding, rebound, rigidity - Extremities Exam Extremities exam: Present: normal inspection, full ROM, normal capillary refill , pedal edema (+3 symmetrical mid-serna). Absent: tenderness, calf tenderness - Back Exam Back exam: Present: normal inspection, full ROM. Absent: tenderness - Neurological Exam Neurological exam: Present: alert, oriented X3 - Psychiatric Psychiatric exam: Present: normal affect, normal mood - Skin Skin exam: Present: warm, dry, intact, normal color Course - Reevaluation(s) Reevaluation #1: Patient has diminished breath sounds bilaterally. There is some slight wheezes to the anterior lung salazar.. Diminished breath sounds posteriorly. Patient was given 3 continuous DuoNeb treatments with minimal response. She states she is not feel comfortable going home. Daughter in the room stated when she got up to go to the commode her oxygen saturation dropped into the 80s. Her chest x -ray does not reveal signs of pneumonia. Her labs to not reveal leukocytosis. Her glucose is mildly elevated. BNP elevated 170. Patient was given steroids and continues to have some moderate respiratory distress. Respiratory was called and placed around BiPAP. Patient does report using BiPAP on a nightly basis as well as her last hospitalization requiring that. Attempted to ambulate the patient began on 3 L home oxygen supplementation she quickly dropped to the lower mid-80s. Patient will be admitted for further management treatment she is hypoxic with very minimal exertion. Impression is COPD exacerbation. Patient was started on azithromycin. - Consultations Consultation #1: Spoke with on-call hospitalist bertha Coreas to admit for COPD exacerbation , hypoxia, and respiratory distress. No further orders at this time Vital Signs Temperature 97.5 F L 10/10/16 19:58 Pulse Rate 88 10/10/16 19:58 Respiratory Rate 18 10/10/16 19:58 Blood Pressure 145/90 10/10/16 19:58 O2 Sat by Pulse Oximetry 94 10/10/16 19:58 Temperature 97.6 F 10/11/16 03:53 Pulse Rate 90 10/11/16 03:53 Respiratory Rate 17 10/11/16 04:33 Blood Pressure 155/95 10/11/16 03:53 O2 Sat by Pulse Oximetry 99 10/11/16 04:33 Oxygen Delivery Oxygen Delivery Bipap Shortness of Breath/Dyspnea - Medical Records Medical records reviewed: Yes I reviewed the patient's medical records. - Lab Data Lab results reviewed: Yes I reviewed the patient's lab results. Result diagrams: 10/10/16 20:25 10/10/16 20:25 Lab Results 10/10/16 10/10/16 10/10/16 Range/Units 20:25 20:25 20:25 WBC 9.1 (4.3-11.1) K/mcL RBC 4.19 (3.82-4.97) M/mcL Hgb 11.9 (11.5-15.4) g/dL Hct 38.3 (35.3-44.9) % MCV 91.4 (83.0-100.0) fL MCH 28.4 (28.0-33.3) pg MCHC 31.1 L (31.6-35.5) g/dL RDW 14.8 H (11.5-14.5) % Plt Count 319 (140-400) K/mcL MPV 10.4 (9.4-12.4) fL Immature Gran % 6.0 H (0-4) % Seg Neutrophils % 84.9 % Lymphocytes % 5.8 % Monocytes % 2.3 % Eosinophils % 0.0 % Basophils % 1.0 % Neutrophils # 7.7 (1.6-8.9) K/mcL Lymphocytes # 0.5 L (0.6-4.6) K/mcL Monocytes # 0.2 (0.0-1.3) K/mcL Eosinophils # 0.0 (0.0-0.6) K/mcL Basophils # 0.1 (0.0-0.2) K/mcL Nucleated RBCs/100 WBC 0.4 H (0) /100 WBC Platelet Estimate Normal (Normal) Polychromasia 1+ A (Not Present) Sodium 141 (136-145) mEq/L Potassium 4.1 (3.5-4.5) mEq/L Chloride 101 (98-109) mEq/L Carbon Dioxide 29 (19-29) mEq/L BUN 19 (7-20) mg/dL Creatinine 0.64 (0.57-1.11) mg/dL Est GFR ( Amer) > 60 (> 60) Est GFR (Non-Af Amer) > 60 (> 60) BUN/Creatinine Ratio 30 H (6-26) Glucose 333 H (70-99) mg/dL Calculated Osmolality 307 H (280-300) Calcium 9.2 (8.6-10.8) mg/dL B-Natriuretic Peptide 157 H (0-100) pg/mL - Radiology Data Radiology results reviewed: Yes I reviewed the patient's radiology results. Chest X-Ray 10/10/16 20:23 IMPRESSION: No acute process. D/ / Elmira Westfall MD / Elmira Westfall MD Interpreting Provider: Elmira Westfall MD - EKG Data EKG attestation: Yes I reviewed and interpreted this EKG. EKG results narrative: EKG performed 2002 normal sinus rhythm 85 bpm, normal axis, no ST elevations or depression, no T wave inversion, intervals are within normal limits. Compared to old EKG performed 09/27/2016 shows similar consistent findings of sinus rhythm. No acute ischemic changes. Critical Care Time Critical Care Time: Yes Total Critical Care Time: 35 Attestation: Critical care performed: Time is exclusive of separately billable procedures. Time includes: direct patient care, patient reassessment, coordination of patient care, interpretation of data (laboratory data, radiology data, and respiratory data), review of patient's medical records, medical consultation and documentation of patient care. Procedures included in critical care time: Procedures excluded from critical care time: Attestation Statement - Attestation Attestation: I, Robert Hyde MD, personally evaluated this patient and discussed their management with the resident physician. I reviewed the resident's note and agree with the documented findings, medical decision making, and plan of care. 56-year-old female with history of COPD on home oxygen presents to the emergency department with a complaint of increased shortness of breath for the past day or 2. Also been increased cough with some green and yellow sputum production. No fever. No chest pain but it does hurt to cough or take a deep breath. Patient was in the hospital about 2 weeks ago for similar symptoms. She went home on prednisone but was not on antibiotics. She has been tapering off the prednisone and just recently stopped it. On examination patient is a well-developed well-nourished female in no acute distress. She is alert and oriented 3. There is no cyanosis or diaphoresis. Chest is nontender to palpation. Breath sounds are markedly decreased bilaterally. No definite rales or wheezes noted however there is very little air movement. Heart is regular with a mild tachycardia. Abdomen is soft and nontender with normal bowel sounds. 2+ pitting edema of the lower extremities. Patient received IV Solu-Medrol and DuoNeb treatments with minimal improvement. She was ambulated on oxygen and her oxygen saturations dropped to 82%. She was placed on BiPAP as she does use BiPAP at home at night. Labs reviewed. Chest x-ray negative. EKG normal. The hospitalist, Dr. Reynolds, was consulted and accepted the admission of the patient.
[2016-10-10] MEDS ORDERED: Ipratropium/Albuterol Neb 3 ML IH ONE (20:28)
[2016-10-10 20:33] LABS: Basophils # 0.1 K/mcL (0.0-0.2); Hematocrit 38.3 % (35.3-44.9); Hemoglobin 11.9 g/dL (11.5-15.4); Lymphocytes # 0.5 K/mcL (0.6-4.6); Lymphocytes % 5.8 %; Mean Corpuscular HGB Conc 31.1 g/dL (31.6-35.5); Mean Corpuscular Hemoglobin 28.4 pg (28.0-33.3); Mean Corpuscular Volume 91.4 fL (83.0-100.0); Mean Platelet Volume 10.4 fL (9.4-12.4); Monocytes # 0.2 K/mcL (0.0-1.3); Monocytes % 2.3 %; Neutrophils # 7.7 K/mcL (1.6-8.9); Nucleated Red Blood Cells 0.4 /100 WBC (0); Platelet Count 319 K/mcL (140-400); Red Blood Count 4.19 M/mcL (3.82-4.97); Red Cell Distribution Width 14.8 % (11.5-14.5); Segmented Neutrophils % 84.9 %
[2016-10-10 20:45] LABS: BUN/Creatinine Ratio 30 (6-26); Blood Urea Nitrogen 19 mg/dL (7-20); Calcium 9.2 mg/dL (8.6-10.8); Carbon Dioxide 29 mEq/L (19-29); Chloride 101 mEq/L (98-109); Glucose 333 mg/dL (70-99); Osmolality,Calculated 307 (280-300); Potassium 4.1 mEq/L (3.5-4.5); Sodium 141 mEq/L (136-145); eGFR For African Americans > 60 (> 60); eGFR For Non-African Americans > 60 (> 60)
[2016-10-10 21:00] LABS: Platelet Estimate Normal (Normal); Polychromasia 1+ (Not Present)
[2016-10-10] MEDS ORDERED: *HR* OxyCODONE/APAP 5/325 TABLET PO ONE ×2 (21:43→23:33)
[2016-10-10] MEDS ORDERED: Ondansetron ODT 4 MG TAB.RAPDIS SL ONE (23:02)
[2016-10-10] MEDS ORDERED: Ondansetron 4 MG/2 ML VIAL IVP ONE (23:03)
[2016-10-10] MEDS ORDERED: Azithromycin 500 MG in D5% in Water 250 ML IVPB ONE (23:03)
[2016-10-11] MEDS ORDERED: Insulin DETEMIR 100 UNIT/ML X5UNITS SQ ONE (00:04)
[2016-10-11] MEDS ORDERED: *HR* Dextrose 50 % in Water (Syg) 50 ML SYRINGE IVP PRN (00:09)
[2016-10-11] MEDS ORDERED: Dextrose Gel 15 GM PO PRN ×2 (00:09)
[2016-10-11] MEDS ORDERED: D5% in Water 1,000 ML IVC PRN (00:09)
[2016-10-11] MEDS: *HR* Morphine 2 MG/ML SYRINGE IVP PRN ×6 (00:40→23:57)
[2016-10-11] MEDS: Insulin LISPRO 300 UNITS/3 ML VIAL SQ SCH ×4 (00:41→17:58)
[2016-10-11] MEDS: 0.9 % Sodium Chloride 1,000 ML IVC SCH ×4 (00:41→23:54)
[2016-10-11] MEDS ORDERED: Insulin LISPRO 300 UNITS/3 ML VIAL SQ STA (02:12)
[2016-10-11] MEDS ORDERED: Naloxone 0.4 MG/ML INJ IVP PRN (04:22)
[2016-10-11] MEDS ORDERED: Acetaminophen 325 MG TABLET PO PRN (04:22)
[2016-10-11] MEDS ORDERED: Albuterol 2.5 MG/3 ML NEBULIZER IH PRN (04:22)
--- NOTE | 2016-10-11 04:35 | Internal Med History&Physical ---
Date of Encounter: 10/11/16 Time of Encounter: 04:29 Assessment and Plan (1) Acute exacerbation of chronic obstructive airways disease Current visit: No Status: Acute 1. Will treat with scheduled DuoNebs and PRN Albuterol Nebs. 2. Will use low dose steroids int he face of hyperglycemia. 3. BIPAP per respiratory therapy. 4. Will treat with Levaquin and follow clinically. (2) Acute on chronic respiratory failure with hypoxemia Current visit: Yes Status: Acute 1. Continue oxygen at 3 L NC per home settings with adjustment as necessary. 2. BIPAP QHS and daytime PRN. (3) Diabetes mellitus Current visit: No Status: Chronic 1. Continue basal insulin with high dose SSI. 2. Adjust dosing as needed. 3. Wean steroids as quickly as possible. 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 Heparin SQ. Internal Medicine - H&P: HPI Chief complaint: SOB; cough Admitted From: Emergency Dept Plans for Post Hospital Care: Home History of present illness: Ms. Ren is a 56 year old female who was just hospitalized here about 2 weeks ago for COPD. She presents tonight with complaints of worsening cough, shortness of breath, wheezing, and inability to "catch my breath" for the last three days. She was in the ER and treated for acute exacerbation of COPD. She was subsequently admitted to the hospital service. Upon my assessment of the patient, she feels better on BiPAP machine. She denies any chest pain. She admits to coughing, wheezing, and extreme shortness breath. She uses her aerosols frequently at home. She is on chronic home oxygen and wears BiPAP at night religiously. She denies any ill contacts. She does not smoke, but she was a former smoker. Her glucose was been difficult to control especially since the ER gave her a significant dose of Solu-Medrol. Past Med Surg Social Fam HX - Past Medical History Attestation: Yes The following information was validated with the patient. Source: patient, old records reviewed Medical history: arthritis, asthma, COPD, diabetes, GERD, GI bleed, hyperlipidemia, hypertension, renal disease Psychiatric history: anxiety, panic disorder - Past Surgical History Surgical History: appendectomy, cholecystectomy, knee replacement, other - Social History Smoking Status: Former smoker Smokeless Tobacco Status: No Alcohol use: none Drug use: none Current living situation: Home, With Family Activity Level: Independent ambulation Recent Out of Country Travel Within the Last 8 Weeks: No - Family History Father History Unknown: Yes Family Member Ethnicity: Non- Living Status: Hx Family Cardiac Disorders: Yes (atherrosclerosis) Mother History Unknown: Yes Family Member Ethnicity: Non- Living Status: Still Living Hx Family Cardiac Disorders: Yes (Hypertension) Hx Family Respiratory Disorders: No Hx Family Cancer: No Hx Family GI Disorders: No Hx Family Endocrine Disorder: Yes (Diabetes mellitus) Hx Family Neuromuscular Disorders: No Hx Family Neurologic Disorders: No Hx Family HEENT Disorders: No Hx Family Autoimmune Disorders: No Internal Medicine - H&P: Meds Pantoprazole Sodium [Protonix] 40 mg PO DAILY 02/10/15 [History] Ipratropium/Albuterol Neb [Duoneb] 3 ml IH Q6HR PRN #90 vial.neb 05/02/16 [Rx] cloNIDine HCl [Clonidine HCl] 0.3 mg PO QID 05/16/16 [History] Aspirin 81 mg PO DAILY 07/19/16 [History] Oxycodone HCl [Oxaydo] 5 mg PO Q8H PRN 07/19/16 [History] Oxygen 3 l .ROUTE AD 07/19/16 [History] Ranitidine HCl [Zantac] 150 mg PO DAILY 07/19/16 [History] clonazePAM [Klonopin] 1 mg PO BID 07/31/16 [History] Insulin Glargine [Lantus] 32 unit SQ HS 08/10/16 [History] Insulin LISPRO [HumaLOG] 0 units SQ TIDWM 08/10/16 [History] Roflumilast [Daliresp] 500 mcg PO DAILY 08/10/16 [History] Umeclidinium Brm/Vilanterol Tr [Anoro Ellipta 62.5-25 Mcg INH] 1 puff IH DAILY 08/10/16 [History] Albuterol Sulfate [Ventolin Hfa] 2 puff IH Q4H PRN 09/19/16 [History] Meclizine [Antivert] 25 mg PO TID PRN 09/19/16 [History] Sucralfate [Carafate] 1 gm PO QIDAC #120 tab 09/22/16 [Rx] amLODIPine [Norvasc] 5 mg PO HS #30 tab 09/30/16 [Rx] predniSONE [PredniSONE] 10 mg PO DAILY 12 Days 09/30/16 [Rx] 3 Allergy/AdvReac Type Severity Reaction Status Date / Time NSAIDS (Non-Steroidal Allergy Unknown See Verified 10/10/16 20:01 Anti-Inflamma Comments Penicillins Allergy Unknown Hives Verified 10/10/16 20:01 lisinopril AdvReac Cough Verified 10/10/16 20:01 tramadol AdvReac Nausea Verified 10/10/16 20:01 - Constitutional Constitutional: malaise, no chills, no fever(s), no night sweats - EENT Eyes: no blurry vision, no change in vision Ears: no ear pain, no tinnitus Nose, mouth and throat: no nasal congestion, no nasal discharge, no sinus pressure, no sore throat - Cardiovascular Cardiovascular ROS IM: no chest pain, no diaphoresis, no palpitations, no paroxysmal nocturnal dyspnea - Respiratory Respiratory: cough, dyspnea, wheezing, chest congestion, excessive phlegm production, change in phlegm color, no hemoptysis - Gastrointestinal Gastrointestinal: no abdominal pain, no diarrhea, no hematemesis, no hematochezia, no melena, no nausea, no vomiting - Genitourinary Genitourinary: no dysuria, no flank pain, no hematuria - Musculoskeletal Musculoskeletal ROS IM: arthralgias, no back pain - Integumentary Integumentary IM: no rash, no jaundice - Neurological Neurological ROS: no dizziness, no focal weakness, no frequent falls, no headache(s) - Psychiatric Psychiatric: anxiety, no depression - Endocrine Endocrine IM: no polydipsia, no polyuria - Hematologic/Lymphatic Hematologic/Lymphatic: no easy bruising, no lymphadenopathy - Allergic/Immunologic Allergic/Immunologic: wheezing, no GI upset with certain foods - Constitutional Vitals: Temp Pulse Resp BP Pulse Ox 97.6 F 90 18 155/95 99 10/11/16 03:53 10/11/16 03:53 10/11/16 03:53 10/11/16 03:53 10/11/16 03:53 General appearance: Present: cooperative, mild distress, A&O X 3, pleasant, answers questions appropriately - Head Head exam: Present: atraumatic, normal inspection Additional comments: BiPap mask in place - Eye Eye exam: Present: EOMI, normal appearance, PERRL. Absent: scleral icterus Pupils: Present: normal accommodation - ENT ENT exam: Present: mucous membranes dry, normal exam - Neck Neck exam general surgery: Present: full ROM, supple. Absent: lymphadenopathy, tenderness, nuchal rigidity - Respiratory Respiratory exam: Present: accessory muscle use, prolonged expiratory phase, respiratory distress (mild), rhonchi, wheezes. Absent: CTAB, rales - Cardiovascular Cardiovascular exam: Present: RRR, +S1, +S2. Absent: diastolic murmur, systolic murmur - GI/Abdominal GI/Abdominal exam: Present: normal bowel sounds, soft. Absent: hepatomegaly, splenomegaly, tenderness - Extremities Exam Extremities exam: Present: full ROM, pedal edema (2+), warm. Absent: calf tenderness, joint swelling - Back Exam Back exam: Present: normal inspection. Absent: CVA tenderness (L), CVA tenderness (R) - Neurological Exam Neurological exam: Present: alert, CN II-XII intact, oriented X3, no focal deficits - Psychiatric Psychiatric exam: Present: normal affect, normal mood - Skin Skin exam: Present: dry, warm. Absent: rash Internal Med - H&P Results - Labs CBC & Chem 7: 10/10/16 20:25 10/10/16 20:25 - Diagnostic Studies Chest x-ray Status: image reviewed by me (negative)
[2016-10-11] MEDS: *HR* Heparin 5,000 UNIT/ML VIAL SQ SCH ×3 (04:58→21:00)
[2016-10-11] MEDS: Levofloxacin 500 MG/100 ML 500 MG/100 ML BAG IVPB SCH (04:58)
[2016-10-11] MEDS ORDERED: Nitroglycerin 1 INCH/GM PACKET TP ONE (05:47)
[2016-10-11] MEDS ORDERED: Insulin LISPRO 300 UNITS/3 ML VIAL SQ SCH (06:00)
[2016-10-11] MEDS: Ondansetron 4 MG/2 ML VIAL IVP PRN ×3 (06:16→21:13)
[2016-10-11] MEDS: *HR* OxyCODONE Immed Rel 5 MG TABLET PO PRN ×2 (07:44→16:27)
[2016-10-11] MEDS: cloNIDine HCl 0.1 MG TABLET PO SCH ×4 (07:44→21:00)
[2016-10-11] MEDS: clonazePAM 1 MG TABLET PO SCH ×2 (07:44→21:00)
[2016-10-11] MEDS: Aspirin 81 MG TAB.CHEW PO SCH (07:44)
[2016-10-11] MEDS: Famotidine 20 MG TABLET PO SCH (07:44)
[2016-10-11] MEDS: (Roflumilast [Daliresp] 500 MCG) PO SCH (07:45)
[2016-10-11] MEDS: Ipratropium/Albuterol Neb 3 ML IH SCH ×5 (08:28→23:27)
[2016-10-11] MEDS ORDERED: predniSONE 20 MG TABLET PO SCH (09:00)
--- NOTE | 2016-10-11 18:12 | Electrocardiograph Report ---
[address] [address] Test Date: 2016-10-10 Pat Name: Nora Ren Department: 105 Room: [facility] Gender: F [employer] Supervisor: : 1960 Requested By: Nikunj Jeffers Order Number: [id number] Reading MD: Low Cordova MD Measurements Intervals [place] Rate: 85 P: 50 MD: 138 QRS: 40 QRSD: 85 T: 60 QT: 359 QTc: 402 Interpretive Statements SINUS RHYTHM Electronically Signed On 10-11-2016 18:10:53 EDT by Low Cordova MD
--- NOTE | 2016-10-11 18:19 | Electrocardiograph Report ---
[place] [address] Test Date: 2016-10-11 Pat Name: Nora Ren Department: 114 Room: [facility] Gender: F [employer] Lead: [id number] : 1960 Requested By: Kathya Valle Order Number: [id number] Reading MD: Low Cordova MD Measurements Intervals [place] Rate: 77 P: 38 OK: 149 QRS: 30 QRSD: 84 T: 30 QT: 365 QTc: 397 Interpretive Statements SINUS RHYTHM LOW QRS VOLTAGE IN PRECORDIAL LEADS Poor R wave progression Electronically Signed On 10-11-2016 18:17:26 EDT by Low Cordova MD
--- NOTE | 2016-10-11 18:36 | Internal Med Progress Note ---
Date of Encounter: 10/11/16 Time of Encounter: 18:33 - Assessment and plan (1) Aspiration pneumonia Current Visit: Yes Status: Acute Qualifiers: Aspiration pneumonia type: unspecified Laterality: bilateral Lung location: lower lobe of lung Qualified Code(s): J69.0 - Pneumonitis due to inhalation of food and vomit (2) Acute exacerbation of chronic obstructive airways disease Current Visit: Yes Status: Acute (3) DM type 2, uncontrolled, with neuropathy Current Visit: No Status: Chronic (4) Tobacco use disorder Current Visit: No Status: Chronic (5) Hypertension Current Visit: No Status: Chronic Qualifiers: Hypertension type: essential hypertension Qualified Code(s): I10 - Essential (primary) hypertension (6) JORGE (obstructive sleep apnea) Current Visit: No Status: Chronic (7) HLD (hyperlipidemia) Current Visit: Yes Status: Chronic Qualifiers: Hyperlipidemia type: other hyperlipidemia Qualified Code(s): E78.4 - Other hyperlipidemia (8) DVT prophylaxis Current Visit: Yes Status: Acute - Subjective Interval history: Ms. Ren is a 56 year old female who was just hospitalized here about 2 weeks ago for COPD. She presents tonight with complaints of worsening cough, shortness of breath, wheezing, and inability to "catch my breath" for the last three days. She was in the ER and treated for acute exacerbation of COPD. She was subsequently admitted to the hospital service. Patient does not feel much better. Chest x-ray reviewed and compared from September 27 chest x-ray. Per my impression patient has bilateral basal infiltrates which actually have intensified though mildly on yesterday's x-ray. Patient is getting IV hydration and nothing if a repeat chest x-ray will get a better picture however at this time I think it is appropriate to add Flagyl to IV Levaquin assuming this is an aspiration which has not responded very well to traditional antibiotics for community acquired pneumonia. I will take her off oral steroids as she has not noticed much difference and put on IV Solu- Medrol 60 every 8 along with Mucinex 600 twice a day and scheduled nebulizer treatment to intensify the treatment plan. - Constitutional Vitals: Temp Pulse Resp BP Pulse Ox 98.0 F 73 16 152/82 94 10/11/16 15:27 10/11/16 15:27 10/11/16 16:20 10/11/16 15:27 10/11/16 16:20 General appearance: Present: cooperative, mild distress, A&O X 3, pleasant, answers questions appropriately - Head Head exam: Present: atraumatic, normocephalic - Eye Eye exam: Present: PERRL, conjuntiva pink, sclera anicteric Pupils: Present: PERRL - Neck Neck exam general surgery: Present: supple, trachea midline. Absent: lymphadenopathy - Respiratory Respiratory exam: Present: decreased breath sounds, rhonchi, wheezes. Absent: accessory muscle use, rales - Cardiovascular Cardiovascular exam: Present: RRR, +S1, +S2. Absent: diastolic murmur, gallop, rubs, systolic murmur - GI/Abdominal GI/Abdominal exam: Present: normal bowel sounds, soft, no peritoneal signs. Absent: distended, tenderness - Extremities Exam Extremities exam: Present: warm, radial pulses palpable and symmetrical. Absent : calf tenderness, cyanotic, pedal edema - Neurological Exam Neurological exam: Present: CN II-XII intact, oriented X3, no focal deficits. Absent: pronater drift, facial droop, speech deficit - Skin Skin exam: Present: dry, intact Internal Medicine: Result - Labs CBC & Chem 7: 10/10/16 20:25 10/10/16 20:25 Labs: Cardiac Enzymes 10/11/16 Range/Units 05:44 Troponin I 0.02 (0-0.03) ng/mL Consult Discharge Plan - Plan Referrals: Domitila Lau MD [Primary Care Provider] -
[2016-10-11] MEDS ORDERED: NON-FORMULARY MEDICATION 1 EACH EACH (Insulin Glargine [Lantus] 25 UNIT) SQ SCH (21:00)
[2016-10-11] MEDS ORDERED: amLODIPine 5 MG TABLET PO SCH (21:00)
[2016-10-11] MEDS: Insulin DETEMIR 100 UNIT/ML X5UNITS SQ SCH (21:04)
[2016-10-11] MEDS: MetroNIDAZOLE 500 MG/100 ML 500 MG/100 ML BAG IVPB SCH ×3 (23:47→23:55)
[2016-10-11] MEDS: methylPREDNISolone 125 MG/2 ML VIAL IVP SCH (23:59)
[2016-10-12] MEDS: *HR* Morphine 2 MG/ML SYRINGE IVP PRN ×5 (04:00→20:51)
[2016-10-12] MEDS: Ipratropium/Albuterol Neb 3 ML IH SCH ×6 (04:13→23:21)
[2016-10-12] MEDS: *HR* Heparin 5,000 UNIT/ML VIAL SQ SCH ×3 (05:13→21:52)
[2016-10-12] MEDS: Levofloxacin 500 MG/100 ML 500 MG/100 ML BAG IVPB SCH (05:13)
[2016-10-12] MEDS: Ondansetron 4 MG/2 ML VIAL IVP PRN ×3 (05:14→17:56)
[2016-10-12] MEDS: Insulin LISPRO 300 UNITS/3 ML VIAL SQ SCH ×4 (05:58→17:57)
[2016-10-12] MEDS: *HR* OxyCODONE Immed Rel 5 MG TABLET PO PRN ×2 (06:01→14:11)
[2016-10-12 06:59] LABS: Basophils % 0.5 %; Eosinophils % 0.1 %; Hematocrit 33.6 % (35.3-44.9); Hemoglobin 10.5 g/dL (11.5-15.4); Immature Granulocytes % 4.4 % (0-4); Lymphocytes # 0.5 K/mcL (0.6-4.6); Lymphocytes % 5.7 %; Mean Corpuscular HGB Conc 31.3 g/dL (31.6-35.5); Mean Corpuscular Hemoglobin 29.1 pg (28.0-33.3); Mean Corpuscular Volume 93.1 fL (83.0-100.0); Mean Platelet Volume 10.8 fL (9.4-12.4); Monocytes # 0.2 K/mcL (0.0-1.3); Monocytes % 1.9 %; Platelet Count 280 K/mcL (140-400); Red Blood Count 3.61 M/mcL (3.82-4.97); Segmented Neutrophils % 87.4 %
[2016-10-12] MEDS: methylPREDNISolone 125 MG/2 ML VIAL IVP SCH ×2 (07:56→16:20)
[2016-10-12] MEDS: Famotidine 20 MG TABLET PO SCH (07:57)
[2016-10-12] MEDS: clonazePAM 1 MG TABLET PO SCH ×2 (07:57→20:52)
[2016-10-12] MEDS: cloNIDine HCl 0.1 MG TABLET PO SCH ×4 (07:57→20:52)
[2016-10-12] MEDS: Aspirin 81 MG TAB.CHEW PO SCH (07:58)
[2016-10-12] MEDS: (Roflumilast [Daliresp] 500 MCG) PO SCH (07:58)
[2016-10-12] MEDS: MetroNIDAZOLE 500 MG/100 ML 500 MG/100 ML BAG IVPB SCH ×2 (07:58→16:20)
[2016-10-12] MEDS: amLODIPine 5 MG TABLET PO SCH (12:19)
[2016-10-12 12:59] LABS: Alanine Aminotransferase 22 Units/L (0-55); Albumin 3.1 g/dL (3.5-5.0); Alkaline Phosphatase 134 Units/L (38-126); Aspartate Amino Transferase 8 Units/L (5-34); BUN/Creatinine Ratio 34 (6-26); Blood Urea Nitrogen 24 mg/dL (7-20); Calcium 9.6 mg/dL (8.6-10.8); Carbon Dioxide 29 mEq/L (19-29); Chloride 99 mEq/L (98-109); Glucose 188 mg/dL (70-99); Osmolality,Calculated 299 (280-300); Potassium 4.1 mEq/L (3.5-4.5); Sodium 140 mEq/L (136-145); Total Protein 6.1 g/dL (6.0-8.3); eGFR For African Americans > 60 (> 60); eGFR For Non-African Americans > 60 (> 60)
[2016-10-12 13:03] LABS: Bilirubin,Total < 0.3 mg/dL (0.2-1.2)
[2016-10-12] MEDS: 0.9 % Sodium Chloride 1,000 ML IVC SCH (14:12)
--- NOTE | 2016-10-12 17:09 | Internal Med Progress Note ---
Date of Encounter: 10/12/16 Time of Encounter: 17:07 - Assessment and plan (1) Aspiration pneumonia Current Visit: Yes Status: Acute Qualifiers: Aspiration pneumonia type: unspecified Laterality: bilateral Lung location: lower lobe of lung Qualified Code(s): J69.0 - Pneumonitis due to inhalation of food and vomit (2) Acute exacerbation of chronic obstructive airways disease Current Visit: Yes Status: Acute (3) DM type 2, uncontrolled, with neuropathy Current Visit: No Status: Chronic (4) Tobacco use disorder Current Visit: No Status: Chronic (5) Hypertension Current Visit: No Status: Chronic Qualifiers: Hypertension type: essential hypertension Qualified Code(s): I10 - Essential (primary) hypertension (6) JORGE (obstructive sleep apnea) Current Visit: No Status: Chronic (7) HLD (hyperlipidemia) Current Visit: Yes Status: Chronic Qualifiers: Hyperlipidemia type: other hyperlipidemia Qualified Code(s): E78.4 - Other hyperlipidemia (8) DVT prophylaxis Current Visit: Yes Status: Acute - Subjective Interval history: Ms. Ren is a 56 year old female who was just hospitalized here about 2 weeks ago for COPD. She presents tonight with complaints of worsening cough, shortness of breath, wheezing, and inability to "catch my breath" for the last three days. She was in the ER and treated for acute exacerbation of COPD. She was subsequently admitted to the hospital service. Patient does not feel much better. Chest x-ray reviewed and compared from September 27 chest x-ray. Per my impression patient has bilateral basal infiltrates which actually have intensified though mildly on yesterday's x-ray. Patient is getting IV hydration and nothing if a repeat chest x-ray will get a better picture however at this time I think it is appropriate to add Flagyl to IV Levaquin assuming this is an aspiration which has not responded very well to traditional antibiotics for community acquired pneumonia. I will take her off oral steroids as she has not noticed much difference and put on IV Solu- Medrol 60 every 8 along with Mucinex 600 twice a day and scheduled nebulizer treatment to intensify the treatment plan. Improving but is still a nebulizer and IV steroids. Blood sugars are much better and now in low 200s. Levemir will be readjusted. Continue current treatment. - Constitutional Vitals: Temp Pulse Resp BP Pulse Ox 98.0 F 81 16 147/86 95 10/12/16 15:21 10/12/16 15:21 10/12/16 17:02 10/12/16 15:21 10/12/16 17:02 General appearance: Present: cooperative, mild distress, A&O X 3, pleasant, answers questions appropriately - Head Head exam: Present: atraumatic, normocephalic - Eye Eye exam: Present: PERRL, conjuntiva pink, sclera anicteric Pupils: Present: PERRL - Neck Neck exam general surgery: Present: supple, trachea midline. Absent: lymphadenopathy - Respiratory Respiratory exam: Present: CTAB, wheezes. Absent: accessory muscle use, rales, rhonchi - Cardiovascular Cardiovascular exam: Present: RRR, +S1, +S2. Absent: diastolic murmur, gallop, rubs, systolic murmur - GI/Abdominal GI/Abdominal exam: Present: normal bowel sounds, soft, no peritoneal signs. Absent: distended, tenderness - Extremities Exam Extremities exam: Present: warm, radial pulses palpable and symmetrical. Absent : calf tenderness, cyanotic, pedal edema - Neurological Exam Neurological exam: Present: CN II-XII intact, oriented X3, no focal deficits. Absent: pronater drift, facial droop, speech deficit - Skin Skin exam: Present: dry, intact Internal Medicine: Result - Labs CBC & Chem 7: 10/12/16 06:07 10/12/16 08:19 Labs: Short CBC 10/12/16 Range/Units 06:07 WBC 8.0 (4.3-11.1) K/mcL Hgb 10.5 L (11.5-15.4) g/dL Hct 33.6 L (35.3-44.9) % Plt Count 280 (140-400) K/mcL Neutrophils # 7.0 (1.6-8.9) K/mcL BMP 10/12/16 08:19 Sodium 140 Potassium 4.1 Chloride 99 Carbon Dioxide 29 BUN 24 H Creatinine 0.70 Glucose 188 H Calcium 9.6 Liver Function 10/12/16 Range/Units 08:19 Total Bilirubin < 0.3 (0.2-1.2) mg/dL AST 8 (5-34) Units/L ALT 22 (0-55) Units/L Alkaline Phosphatase 134 H (38-126) Units/L Albumin 3.1 L (3.5-5.0) g/dL Consult Discharge Plan - Plan Referrals: Domitila Lau MD [Primary Care Provider] -
[2016-10-12] MEDS ORDERED: Ondansetron 4 MG/2 ML VIAL IVP ONE (21:10)
[2016-10-12] MEDS: Insulin DETEMIR 100 UNIT/ML X5UNITS SQ SCH (21:52)
[2016-10-13] MEDS: Insulin LISPRO 300 UNITS/3 ML VIAL SQ SCH ×4 (00:27→17:21)
[2016-10-13] MEDS: methylPREDNISolone 125 MG/2 ML VIAL IVP SCH ×3 (00:28→16:12)
[2016-10-13] MEDS: MetroNIDAZOLE 500 MG/100 ML 500 MG/100 ML BAG IVPB SCH ×3 (00:28→16:11)
[2016-10-13] MEDS: 0.9 % Sodium Chloride 1,000 ML IVC SCH ×3 (00:29→20:28)
[2016-10-13] MEDS: *HR* Morphine 2 MG/ML SYRINGE IVP PRN ×5 (01:53→20:28)
[2016-10-13] MEDS: Ondansetron 4 MG/2 ML VIAL IVP PRN ×4 (04:13→22:43)
[2016-10-13] MEDS: Levofloxacin 500 MG/100 ML 500 MG/100 ML BAG IVPB SCH (04:14)
[2016-10-13] MEDS: Ipratropium/Albuterol Neb 3 ML IH SCH ×6 (04:17→23:10)
[2016-10-13] MEDS: *HR* OxyCODONE Immed Rel 5 MG TABLET PO PRN ×3 (05:12→21:27)
[2016-10-13] MEDS: *HR* Heparin 5,000 UNIT/ML VIAL SQ SCH ×3 (05:12→21:26)
[2016-10-13] MEDS: cloNIDine HCl 0.1 MG TABLET PO SCH ×4 (07:58→20:28)
[2016-10-13] MEDS: amLODIPine 5 MG TABLET PO SCH (07:58)
[2016-10-13] MEDS: Famotidine 20 MG TABLET PO SCH (07:59)
[2016-10-13] MEDS: clonazePAM 1 MG TABLET PO SCH ×2 (07:59→20:29)
[2016-10-13] MEDS: (Roflumilast [Daliresp] 500 MCG) PO SCH (08:32)
[2016-10-13] MEDS: Aspirin 81 MG TAB.CHEW PO SCH (08:32)
[2016-10-13 11:24] LABS: ABG Base Excess 4.8 mEq/L (-2.0 to 3.0); ABG HCO3 30.4 mEQ/L (21-27); ABG Oxygen Saturation 98 % (95-98); ABG PCO2 49 mmHg (35-45); ABG PO2 99 mmHg (85-104); ABG TCO2 31.9 mEq/L (20-26)
[2016-10-13 11:26] LABS: Blood Gas Liter Flow 3 L/MIN
--- NOTE | 2016-10-13 18:22 | Internal Med Progress Note ---
Date of Encounter: 10/13/16 Time of Encounter: 18:21 - Assessment and plan (1) Aspiration pneumonia Current Visit: Yes Status: Acute Qualifiers: Aspiration pneumonia type: unspecified Laterality: bilateral Lung location: lower lobe of lung Qualified Code(s): J69.0 - Pneumonitis due to inhalation of food and vomit (2) Acute exacerbation of chronic obstructive airways disease Current Visit: Yes Status: Acute (3) DM type 2, uncontrolled, with neuropathy Current Visit: No Status: Chronic (4) Tobacco use disorder Current Visit: No Status: Chronic (5) Hypertension Current Visit: No Status: Chronic Qualifiers: Hypertension type: essential hypertension Qualified Code(s): I10 - Essential (primary) hypertension (6) JORGE (obstructive sleep apnea) Current Visit: No Status: Chronic (7) HLD (hyperlipidemia) Current Visit: Yes Status: Chronic Qualifiers: Hyperlipidemia type: other hyperlipidemia Qualified Code(s): E78.4 - Other hyperlipidemia (8) DVT prophylaxis Current Visit: Yes Status: Acute - Subjective Interval history: Ms. Ren is a 56 year old female who was just hospitalized here about 2 weeks ago for COPD. She presents tonight with complaints of worsening cough, shortness of breath, wheezing, and inability to "catch my breath" for the last three days. She was in the ER and treated for acute exacerbation of COPD. She was subsequently admitted to the hospital service. Patient does not feel much better. Chest x-ray reviewed and compared from September 27 chest x-ray. Per my impression patient has bilateral basal infiltrates which actually have intensified though mildly on yesterday's x-ray. Patient is getting IV hydration and nothing if a repeat chest x-ray will get a better picture however at this time I think it is appropriate to add Flagyl to IV Levaquin assuming this is an aspiration which has not responded very well to traditional antibiotics for community acquired pneumonia. I will take her off oral steroids as she has not noticed much difference and put on IV Solu- Medrol 60 every 8 along with Mucinex 600 twice a day and scheduled nebulizer treatment to intensify the treatment plan. Improving but is still a nebulizer and IV steroids. Blood sugars are much better and now in low 200s. Levemir will be readjusted. Continue current treatment. Tachycardic today. CTA negative for PE. ABGs showed PO2 99 on 3 L with normal pH Blood pressure moderately high. On clonidine. Add Lopressor 25 twice a day obtain an EKG the patient is not complaining of chest pain - Constitutional Vitals: Temp Pulse Resp BP Pulse Ox 98.4 F 79 16 153/85 95 10/13/16 16:02 10/13/16 16:02 10/13/16 16:20 10/13/16 16:02 10/13/16 16:20 General appearance: Present: cooperative, mild distress, A&O X 3, pleasant, answers questions appropriately - Head Head exam: Present: atraumatic, normocephalic - Eye Eye exam: Present: PERRL, conjuntiva pink, sclera anicteric Pupils: Present: PERRL - Neck Neck exam general surgery: Present: supple, trachea midline. Absent: lymphadenopathy - Respiratory Respiratory exam: Present: CTAB, wheezes. Absent: accessory muscle use, rales, rhonchi - Cardiovascular Cardiovascular exam: Present: RRR, +S1, +S2. Absent: diastolic murmur, gallop, rubs, systolic murmur - GI/Abdominal GI/Abdominal exam: Present: normal bowel sounds, soft, no peritoneal signs. Absent: distended, tenderness - Extremities Exam Extremities exam: Present: warm, radial pulses palpable and symmetrical. Absent : calf tenderness, cyanotic, pedal edema - Neurological Exam Neurological exam: Present: CN II-XII intact, oriented X3, no focal deficits. Absent: pronater drift, facial droop, speech deficit - Skin Skin exam: Present: dry, intact Internal Medicine: Result - Labs CBC & Chem 7: 10/12/16 06:07 10/12/16 08:19 - ABG Interpretation ABG results: ABG ABG pH 7.40 pH Units (7.32-7.45) 10/13/16 11:15 ABG pCO2 49 mmHg (35-45) H 10/13/16 11:15 ABG pO2 99 mmHg (85-104) 10/13/16 11:15 ABG O2 Saturation 98 % (95-98) 10/13/16 11:15 - Impressions Impressions Chest CTA 10/13/16 09:04 IMPRESSION: No evidence of pulmonary embolism or acute pulmonary abnormality. D/ / 10/13/2016 10:35:39 Jose David Goetz MD / дмитрий Interpreting Provider: Jose David Goetz MD Consult Discharge Plan - Plan Referrals: Domitila Lau MD [Primary Care Provider] -
[2016-10-13] MEDS: Insulin DETEMIR 100 UNIT/ML X5UNITS SQ SCH (20:29)
[2016-10-14] MEDS: methylPREDNISolone 125 MG/2 ML VIAL IVP SCH ×3 (00:35→15:56)
[2016-10-14] MEDS: *HR* Morphine 2 MG/ML SYRINGE IVP PRN ×6 (00:36→21:30)
[2016-10-14] MEDS: ALPRAZolam 0.25 MG TABLET PO SCH ×4 (00:36→17:31)
[2016-10-14] MEDS: MetroNIDAZOLE 500 MG/100 ML 500 MG/100 ML BAG IVPB SCH ×3 (00:36→15:56)
[2016-10-14] MEDS: Insulin LISPRO 300 UNITS/3 ML VIAL SQ SCH ×4 (00:37→17:32)
[2016-10-14] MEDS ORDERED: Ondansetron 4 MG/2 ML VIAL ONE (03:16)
[2016-10-14] MEDS ORDERED: Mag Hydrox/Al Hydrox/Simeth 30 ML UDC ONE (03:16)
[2016-10-14] MEDS: Ipratropium/Albuterol Neb 3 ML IH SCH ×6 (04:39→23:23)
[2016-10-14] MEDS: *HR* Heparin 5,000 UNIT/ML VIAL SQ SCH ×3 (04:56→21:30)
[2016-10-14] MEDS: Levofloxacin 500 MG/100 ML 500 MG/100 ML BAG IVPB SCH (04:56)
[2016-10-14] MEDS: *HR* OxyCODONE Immed Rel 5 MG TABLET PO PRN ×2 (06:06→15:55)
[2016-10-14] MEDS: 0.9 % Sodium Chloride 1,000 ML IVC SCH ×3 (07:56→21:35)
[2016-10-14] MEDS: clonazePAM 1 MG TABLET PO SCH ×2 (08:16→21:31)
[2016-10-14] MEDS: cloNIDine HCl 0.1 MG TABLET PO SCH ×4 (08:16→21:31)
[2016-10-14] MEDS: amLODIPine 5 MG TABLET PO SCH (08:16)
[2016-10-14] MEDS: Aspirin 81 MG TAB.CHEW PO SCH (08:16)
[2016-10-14] MEDS: Famotidine 20 MG TABLET PO SCH (08:17)
[2016-10-14] MEDS: (Roflumilast [Daliresp] 500 MCG) PO SCH (08:17)
[2016-10-14] MEDS: Ondansetron 4 MG/2 ML VIAL IVP PRN ×2 (09:15→21:38)
--- NOTE | 2016-10-14 18:04 | Electrocardiograph Report ---
[place] [address] Test Date: 2016-10-13 Pat Name: Nora Ren Department: 114 Room: [facility] Gender: F [employer] Worker: [id number] : 1960 Requested By: Des Tyler Order Number: [id number] Reading MD: Luba Rea Measurements Intervals [place] Rate: 74 P: 46 ND: 134 QRS: 39 QRSD: 93 T: 35 QT: 372 QTc: 400 Interpretive Statements SINUS RHYTHM WITH OCCASIONAL SUPRAVENTRICULAR PREMATURE COMPLEXES Electronically Signed On 10-14-2016 18:02:32 EDT by Luba Rea
--- NOTE | 2016-10-14 18:45 | Internal Med Progress Note ---
Date of Encounter: 10/14/16 Time of Encounter: 18:43 - Assessment and plan (1) Aspiration pneumonia Current Visit: Yes Status: Acute Qualifiers: Aspiration pneumonia type: unspecified Laterality: bilateral Lung location: lower lobe of lung Qualified Code(s): J69.0 - Pneumonitis due to inhalation of food and vomit (2) Acute exacerbation of chronic obstructive airways disease Current Visit: Yes Status: Acute (3) DM type 2, uncontrolled, with neuropathy Current Visit: No Status: Chronic (4) Tobacco use disorder Current Visit: No Status: Chronic (5) Hypertension Current Visit: No Status: Chronic Qualifiers: Hypertension type: essential hypertension Qualified Code(s): I10 - Essential (primary) hypertension (6) JORGE (obstructive sleep apnea) Current Visit: No Status: Chronic (7) HLD (hyperlipidemia) Current Visit: Yes Status: Chronic Qualifiers: Hyperlipidemia type: other hyperlipidemia Qualified Code(s): E78.4 - Other hyperlipidemia (8) DVT prophylaxis Current Visit: Yes Status: Acute - Subjective Interval history: Ms. Ren is a 56 year old female who was just hospitalized here about 2 weeks ago for COPD. She presents tonight with complaints of worsening cough, shortness of breath, wheezing, and inability to "catch my breath" for the last three days. She was in the ER and treated for acute exacerbation of COPD. She was subsequently admitted to the hospital service. Patient does not feel much better. Chest x-ray reviewed and compared from September 27 chest x-ray. Per my impression patient has bilateral basal infiltrates which actually have intensified though mildly on yesterday's x-ray. Patient is getting IV hydration and nothing if a repeat chest x-ray will get a better picture however at this time I think it is appropriate to add Flagyl to IV Levaquin assuming this is an aspiration which has not responded very well to traditional antibiotics for community acquired pneumonia. I will take her off oral steroids as she has not noticed much difference and put on IV Solu- Medrol 60 every 8 along with Mucinex 600 twice a day and scheduled nebulizer treatment to intensify the treatment plan. Improving but is still a nebulizer and IV steroids. Blood sugars are much better and now in low 200s. Levemir will be readjusted. Continue current treatment. Tachycardic today. CTA negative for PE. ABGs showed PO2 99 on 3 L with normal pH Blood pressure moderately high. On clonidine. Add Lopressor 25 twice a day obtain an EKG the patient is not complaining of chest pain 10/14 patient seems better today. Her breath sounds have improved though she still has some wheezing. I think we can start tapering IV steroid and see if she tolerates that taper. The pressure was running high today but after she was given medicines it is better now. She is on Lopressor and clonidine and amlodipine combination. She cannot take SHANNON inhibitor due to chronic cough. I think in the long run she should be better off on hydralazine and Imdur combination. Patient has some insurance issues and therefore this should be done to her family physician's office. He should not steroid will be tapered today - Constitutional Vitals: Temp Pulse Resp BP Pulse Ox 98.6 F 98 18 166/96 99 10/14/16 15:43 10/14/16 15:43 10/14/16 16:09 10/14/16 15:43 10/14/16 16:09 General appearance: Present: cooperative, mild distress, A&O X 3, pleasant, answers questions appropriately - Head Head exam: Present: atraumatic, normocephalic - Eye Eye exam: Present: PERRL, conjuntiva pink, sclera anicteric Pupils: Present: PERRL - Neck Neck exam general surgery: Present: supple, trachea midline. Absent: lymphadenopathy - Respiratory Respiratory exam: Present: CTAB, wheezes. Absent: accessory muscle use, rales, rhonchi - Cardiovascular Cardiovascular exam: Present: RRR, +S1, +S2. Absent: diastolic murmur, gallop, rubs, systolic murmur - GI/Abdominal GI/Abdominal exam: Present: normal bowel sounds, soft, no peritoneal signs. Absent: distended, tenderness - Extremities Exam Extremities exam: Present: warm, radial pulses palpable and symmetrical. Absent : calf tenderness, cyanotic, pedal edema - Neurological Exam Neurological exam: Present: CN II-XII intact, oriented X3, no focal deficits. Absent: pronater drift, facial droop, speech deficit - Skin Skin exam: Present: dry, intact Internal Medicine: Result - Labs CBC & Chem 7: 10/12/16 06:07 10/12/16 08:19 Labs: Cardiac Enzymes 10/14/16 10/14/16 Range/Units 04:08 09:36 Troponin I 0.02 0.01 (0-0.03) ng/mL - ABG Interpretation ABG results: ABG ABG pH 7.40 pH Units (7.32-7.45) 10/13/16 11:15 ABG pCO2 49 mmHg (35-45) H 10/13/16 11:15 ABG pO2 99 mmHg (85-104) 10/13/16 11:15 ABG O2 Saturation 98 % (95-98) 10/13/16 11:15 - Impressions Impressions Chest CTA 10/13/16 09:04 IMPRESSION: No evidence of pulmonary embolism or acute pulmonary abnormality. D/ / 10/13/2016 10:35:39 Jose David Goetz MD / [email or web address] Interpreting Provider: Jose David Goetz MD Consult Discharge Plan - Plan Referrals: Domitila Lau MD [Primary Care Provider] -
[2016-10-14] MEDS: Insulin DETEMIR 100 UNIT/ML X5UNITS SQ SCH (21:31)
[2016-10-15] MEDS: methylPREDNISolone 125 MG/2 ML VIAL IVP SCH (00:01)
[2016-10-15] MEDS: Insulin LISPRO 300 UNITS/3 ML VIAL SQ SCH ×5 (00:01→17:22)
[2016-10-15] MEDS: MetroNIDAZOLE 500 MG/100 ML 500 MG/100 ML BAG IVPB SCH ×2 (00:01→07:59)
[2016-10-15] MEDS: *HR* OxyCODONE Immed Rel 5 MG TABLET PO PRN ×2 (00:01→08:17)
[2016-10-15 00:37] LABS: BUN/Creatinine Ratio 33 (6-26); Blood Urea Nitrogen 27 mg/dL (7-20); Calcium 8.1 mg/dL (8.6-10.8); Carbon Dioxide 27 mEq/L (19-29); Chloride 102 mEq/L (98-109); Glucose 433 mg/dL (70-99); Osmolality,Calculated 308 (280-300); Potassium 4.6 mEq/L (3.5-4.5); Sodium 137 mEq/L (136-145); eGFR For African Americans > 60 (> 60); eGFR For Non-African Americans > 60 (> 60)
[2016-10-15] MEDS: ALPRAZolam 0.25 MG TABLET PO SCH ×5 (00:57→23:00)
[2016-10-15] MEDS: *HR* Morphine 2 MG/ML SYRINGE IVP PRN ×5 (01:30→20:18)
[2016-10-15] MEDS: Ipratropium/Albuterol Neb 3 ML IH SCH ×6 (04:34→23:20)
[2016-10-15] MEDS: Ondansetron 4 MG/2 ML VIAL IVP PRN ×3 (05:49→22:47)
[2016-10-15] MEDS: *HR* Heparin 5,000 UNIT/ML VIAL SQ SCH ×3 (05:50→22:48)
[2016-10-15] MEDS: Levofloxacin 500 MG/100 ML 500 MG/100 ML BAG IVPB SCH (05:50)
[2016-10-15] MEDS: cloNIDine HCl 0.1 MG TABLET PO SCH ×4 (07:58→20:17)
[2016-10-15] MEDS: Aspirin 81 MG TAB.CHEW PO SCH (07:58)
[2016-10-15] MEDS: Famotidine 20 MG TABLET PO SCH (07:58)
[2016-10-15] MEDS: amLODIPine 5 MG TABLET PO SCH (07:59)
[2016-10-15] MEDS: clonazePAM 1 MG TABLET PO SCH ×2 (07:59→20:17)
[2016-10-15] MEDS: (Roflumilast [Daliresp] 500 MCG) PO SCH (08:00)
[2016-10-15] MEDS: predniSONE 20 MG TABLET PO SCH (08:05)
[2016-10-15] MEDS ORDERED: Insulin DETEMIR 100 UNIT/ML X5UNITS SQ SCH (09:00)
--- NOTE | 2016-10-15 13:30 | Internal Med Progress Note ---
Date of Encounter: 10/15/16 Time of Encounter: 10:20 - Assessment and plan (1) Aspiration pneumonia Current Visit: Yes Status: Acute Assessment and plan: Continue Levaquin and Flagyl. We will transition to oral dosing. Moderate risk for complications. Qualifiers: Aspiration pneumonia type: unspecified Laterality: bilateral Lung location: lower lobe of lung Qualified Code(s): J69.0 - Pneumonitis due to inhalation of food and vomit (2) Acute exacerbation of chronic obstructive pulmonary disease Current Visit: Yes Status: Acute Assessment and plan: Continue bronchodilators. Will taper steroids as patient feel she is improving. Continue O2 supplementation. (3) DM type 2, uncontrolled, with neuropathy Current Visit: Yes Status: Chronic Assessment and plan: Uncontrolled. We will add long-acting insulin in the morning and increase sliding scale coverage. Continue to monitor blood sugars (4) DVT prophylaxis Current Visit: Yes Status: Acute Assessment and plan: With subcutaneous heparin (5) Hypertension Current Visit: Yes Status: Chronic Assessment and plan: Controlled. Continue current medications Qualifiers: Hypertension type: essential hypertension Qualified Code(s): I10 - Essential (primary) hypertension (6) JORGE (obstructive sleep apnea) Current Visit: No Status: Chronic Assessment and plan: Use BiPAP when lying down. (7) Tobacco use disorder Current Visit: No Status: Chronic - Subjective Interval history: Patient feels that her breathing is getting better today. Continues to have some cough and wheezing along with pleuritic chest pain especially on on this lateral sides of the chest wall and her back. No hemoptysis. No fever or chills reported. - Constitutional Vitals: Temp Pulse Resp BP Pulse Ox 97.5 F L 73 18 133/78 97 10/15/16 10:14 10/15/16 10:14 10/15/16 10:14 10/15/16 10:14 10/15/16 10:14 General appearance: Present: cooperative, mild distress, A&O X 3, pleasant, answers questions appropriately - Neck Neck exam general surgery: Present: supple, trachea midline. Absent: lymphadenopathy - Respiratory Respiratory exam: Present: decreased breath sounds (Decreased air entry bilaterally), wheezes. Absent: accessory muscle use, rales, rhonchi - Cardiovascular Cardiovascular exam: Present: RRR, +S1, +S2. Absent: diastolic murmur, gallop, rubs, systolic murmur - GI/Abdominal GI/Abdominal exam: Present: normal bowel sounds, soft, no peritoneal signs. Absent: distended, tenderness Internal Medicine: Result - Labs CBC & Chem 7: 10/12/16 06:07 10/15/16 00:05 Labs: BMP 10/15/16 00:05 Sodium 137 Potassium 4.6 H Chloride 102 Carbon Dioxide 27 BUN 27 H Creatinine 0.81 Glucose 433 H Calcium 8.1 L D - ABG Interpretation ABG results: ABG ABG pH 7.40 pH Units (7.32-7.45) 10/13/16 11:15 ABG pCO2 49 mmHg (35-45) H 10/13/16 11:15 ABG pO2 99 mmHg (85-104) 10/13/16 11:15 ABG O2 Saturation 98 % (95-98) 10/13/16 11:15 Consult Discharge Plan - Plan Referrals: Domitila Lau MD [Primary Care Provider] -
[2016-10-15] MEDS ORDERED: *HR* OxyCODONE Immed Rel 5 MG TABLET PO PRN (14:28)
[2016-10-15] MEDS: metroNIDAZOLE 500 MG TABLET PO SCH ×2 (17:23→23:00)
[2016-10-15] MEDS ORDERED: Insulin Human Regular 10 UNIT in 0.9 % Sodium Chloride 10 ML IV ONE (18:21)
[2016-10-15] MEDS ORDERED: Insulin LISPRO 300 UNITS/3 ML VIAL SQ SCH (21:00)
[2016-10-15] MEDS: Insulin DETEMIR 100 UNIT/ML X5UNITS SQ SCH (22:49)
[2016-10-16] MEDS: *HR* Morphine 2 MG/ML SYRINGE IVP PRN ×2 (00:31→04:49)
[2016-10-16] MEDS: Ipratropium/Albuterol Neb 3 ML IH SCH ×2 (04:19→07:57)
[2016-10-16] MEDS ORDERED: levoFLOXacin 500 MG TABLET PO SCH (05:00)
[2016-10-16] MEDS: ALPRAZolam 0.25 MG TABLET PO SCH (05:01)
[2016-10-16] MEDS: *HR* Heparin 5,000 UNIT/ML VIAL SQ SCH (05:01)
[2016-10-16 07:24] VITALS: BP 127/84
[2016-10-16] MEDS: Insulin LISPRO 300 UNITS/3 ML VIAL SQ SCH ×2 (08:14→08:21)
[2016-10-16] MEDS: amLODIPine 5 MG TABLET PO SCH (08:21)
[2016-10-16] MEDS: Insulin DETEMIR 100 UNIT/ML X5UNITS SQ SCH (08:21)
[2016-10-16] MEDS: cloNIDine HCl 0.1 MG TABLET PO SCH (08:21)
[2016-10-16] MEDS: metroNIDAZOLE 500 MG TABLET PO SCH (08:21)
[2016-10-16] MEDS: clonazePAM 1 MG TABLET PO SCH (08:22)
[2016-10-16] MEDS: Aspirin 81 MG TAB.CHEW PO SCH (08:22)
[2016-10-16] MEDS: Famotidine 20 MG TABLET PO SCH (08:22)
[2016-10-16] MEDS: (Roflumilast [Daliresp] 500 MCG) PO SCH (08:23)
[2016-10-16] MEDS: predniSONE 20 MG TABLET PO SCH (09:01)
--- NOTE | 2016-10-16 09:55 | Discharge Summary ---
Date of Encounter: 10/16/16 Time of Encounter: 09:52 - Discharge Diagnosis (1) Aspiration pneumonia Priority: Primary Status: Acute Qualifiers: Aspiration pneumonia type: unspecified Laterality: bilateral Lung location: lower lobe of lung Qualified Code(s): J69.0 - Pneumonitis due to inhalation of food and vomit (2) Acute exacerbation of chronic obstructive pulmonary disease Priority: Secondary Status: Acute (3) DM type 2, uncontrolled, with neuropathy Priority: Secondary Status: Chronic (4) DVT prophylaxis Priority: Secondary Status: Acute (5) Hypertension Priority: Secondary Status: Chronic Qualifiers: Hypertension type: essential hypertension Qualified Code(s): I10 - Essential (primary) hypertension (6) JORGE (obstructive sleep apnea) Priority: Secondary Status: Chronic (7) Tobacco use disorder Priority: Secondary Status: Chronic - Discharge Medications Prescriptions: Albuterol Sulfate [Ventolin Hfa] 2 puff IH Q4H PRN #1 inh PRN Reason: Shortness Of Breath Budesonide/Formoterol 160/4.5 [Symbicort 160/4.5] 2 puff IH BIDR #1 inh levoFLOXacin [Levaquin] 500 mg PO Q24H #10 tab metroNIDAZOLE [Flagyl] 500 mg PO Q8H #30 tab predniSONE [PredniSONE] 20 mg PO DAILY 12 Days Home Medications: Pantoprazole Sodium [Protonix] 40 mg PO DAILY 02/10/15 [History] Ipratropium/Albuterol Neb [Duoneb] 3 ml IH Q6HR PRN #90 vial.neb 05/02/16 [Rx] cloNIDine HCl [Clonidine HCl] 0.3 mg PO QID 05/16/16 [History] Aspirin 81 mg PO DAILY 07/19/16 [History] Oxycodone HCl [Oxaydo] 5 mg PO Q8H PRN 07/19/16 [History] Oxygen 3 l .ROUTE AD 07/19/16 [History] Ranitidine HCl [Zantac] 150 mg PO DAILY 07/19/16 [History] clonazePAM [Klonopin] 1 mg PO BID 07/31/16 [History] Insulin Glargine [Lantus] 33 unit SQ HS 08/10/16 [History] Insulin LISPRO [HumaLOG] 0 - 10 units SQ TIDWM 08/10/16 [History] Roflumilast [Daliresp] 500 mcg PO DAILY 08/10/16 [History] Meclizine [Antivert] 25 mg PO TID PRN 09/19/16 [History] Sucralfate [Carafate] 1 gm PO QIDAC #120 tab 09/22/16 [Rx] amLODIPine [Norvasc] 5 mg PO HS #30 tab 09/30/16 [Rx] Albuterol Sulfate [Ventolin Hfa] 2 puff IH Q4H PRN #1 inh 10/15/16 [Rx] Budesonide/Formoterol 160/4.5 [Symbicort 160/4.5] 2 puff IH BIDR #1 inh [Rx] levoFLOXacin [Levaquin] 500 mg PO Q24H #10 tab 10/16/16 [Rx] metroNIDAZOLE [Flagyl] 500 mg PO Q8H #30 tab 10/16/16 [Rx] predniSONE [PredniSONE] 20 mg PO DAILY 12 Days 10/16/16 [Rx] Allergies/Adverse Reactions: 3 Allergy/AdvReac Type Severity Reaction Status Date / Time NSAIDS (Non-Steroidal Allergy Unknown See Verified 10/11/16 14:14 Anti-Inflamma Comments Penicillins Allergy Unknown Hives Verified 10/11/16 14:14 lisinopril AdvReac Cough Verified 10/11/16 14:14 tramadol AdvReac Nausea Verified 10/11/16 14:14 Procedures/tests Complete & Pending: Procedures Performed prior 72 hours Category Date Time Status CT angio chest [CT] Stat Cat Scan 10/13/16 09:04 Completed ECG 12 lead ECG [ECG] Routine Y 10/14/16 Completed EKG [ECG 12 lead ECG] [ECG] Stat Y 10/13/16 18:18 Completed Date of admission: 10/10/16 23:06 Primary care physician: Domitila Lau MD Consults: 10/13/16 15:27 Consult to Invasive Line Access Team [CONS] Routine Reason for Consult: Limited vascular access Line Type: EPIV Discharging clinician: Chano Aparicio Anticipated date of discharge: 10/16/16 - Patient Status Disposition: Home, Self-Care Condition: Good Functional capacity at discharge: uses cane/walker Overall status at discharge: patient is progressing back to baseline - Discharge Instructions Instructions: Diabetes Mellitus Type 2 in Adults (DC), Chronic Obstructive Pulmonary Disease (DC), Pneumonia (DC) Follow Up With: Domitila Lau MD [Primary Care Provider] - - Diet and Activity Activity: increase activity as tolerated Diet: diabetic diet, low fat, low cholesterol, low salt diet Hospital course: Ms. Ren is a 56 year old female patient with a history of diabetes mellitus type 2 and COPD and chronic respiratory failure on home oxygen with multiple recurrent hospitalizations For COPD exacerbation was again admitted here with acute on chronic respiratory failure related to COPD exacerbation and pneumonia. She had bibasal infiltrates and was suspected to have aspiration pneumonia. She was treated for this with Levaquin and Flagyl along with standard treatment for COPD exacerbation including intravenous steroids and inhaled bronchodilators. With this treatment plan, her symptoms improved. Her cultures have been negative. She is currently stable to be discharged home. She will be discharged on tapering course of oral steroids along with Levaquin and Flagyl. She has also been prescribed inhalers that she has previously said she could not afford. These medications have been provided from the hospital pharmacy by the delinquency prevention social worker. She also follows up with pulmonology as outpatient. The patient does have a history of chronic tobacco abuse and continues to smoke. This will continue to cause bouts of COPD exacerbation and patient has been advised to quit smoking. She is also been advised to remain compliant with her inhalers as prescribed. During her stay here her blood sugars were elevated and they were controlled with long-acting and short-acting sliding scale insulin regimen. - Time Spent with Patient Total time spent providing and/or coordinating discharge services: Greater than 30 minutes (33 min) - Constitutional Vitals: Temp Pulse Resp BP Pulse Ox 98.1 F 74 16 127/84 95 10/16/16 07:00 10/16/16 07:00 10/16/16 07:58 10/16/16 07:00 10/16/16 07:58 General appearance: Present: cooperative, mild distress, A&O X 3, pleasant, obese, answers questions appropriately - Respiratory Respiratory exam: Present: decreased breath sounds, wheezes. Absent: accessory muscle use, rales, rhonchi - Cardiovascular Cardiovascular exam: Present: RRR, +S1, +S2. Absent: diastolic murmur, gallop, rubs, systolic murmur - GI/Abdominal GI/Abdominal exam: Present: normal bowel sounds, soft, no peritoneal signs. Absent: distended, tenderness - Extremities Exam Extremities exam: Present: warm, radial pulses palpable and symmetrical. Absent : calf tenderness, cyanotic, pedal edema
== END 2016-10-16 10:40 | disposition home or self-care (01) ==
LOC: 3NENU 19:53 → EMEROO 19:53 → SUATTDRO 23:06 → 3NENU 23:49
PROVIDERS: ADMIT Pediatrics; ATTEND Internal Medicine

== ENCOUNTER 2016-10-23 19:25 | Inpatient (IN) ==
[2016-10-23] MEDS ORDERED: Ipratropium/Albuterol Neb 3 ML IH ONE (19:43)
[2016-10-23] MEDS ORDERED: methylPREDNISolone 125 MG/2 ML VIAL IVP ONE (19:43)
--- NOTE | 2016-10-23 19:46 | Emergency Department Note ---
Disposition Clinical Impression: COPD (chronic obstructive pulmonary disease) Qualifiers: COPD type: COPD with acute exacerbation Qualified Code(s): J44.1 - Chronic obstructive pulmonary disease with (acute) exacerbation Disposition: Admitted As Inpatient Condition: Fair Referrals: NONE,PCP [Primary Care Provider] - Forms: ED Satisfaction Letter Time of Disposition: 20:45 SOB HPI - General Chief Complaint: ED Shortness of Breath/Dyspnea Stated Complaint: sob Time Seen by Provider: 10/23/16 19:43 Source: patient Mode of arrival: ambulatory Limitations: no limitations Nursing Notes Reviewed: Yes Vital Signs Reviewed: Yes - History of Present Illness 56-year-old with history of COPD comes in with increasing shortness of breath. Patient states she has not felt well for the last couple of days. 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 (ago): day(s) Context: recent illness Severity: moderate Consistency/Duration: constant Improves with: nothing Worsens with: exertion Known history of: COPD Associated symptoms: Reports: cough Treatment prior to arrival: oxygen, bronchodilator Cough present: Yes Cough Description: Involuntary Cough Frequency: Intermittent - Related Data Home Medications Medication Instructions Recorded Confirmed Pantoprazole Sodium [Protonix] 40 mg PO DAILY 02/10/15 10/11/16 cloNIDine HCl [Clonidine HCl] 0.3 mg PO QID 05/16/16 10/11/16 Aspirin 81 mg PO DAILY 07/19/16 10/11/16 Oxycodone HCl [Oxaydo] 5 mg PO Q8H PRN 07/19/16 10/11/16 Oxygen 3 l .ROUTE AD 07/19/16 10/11/16 Ranitidine HCl [Zantac] 150 mg PO DAILY 07/19/16 10/11/16 clonazePAM [Klonopin] 1 mg PO BID 07/31/16 10/11/16 Insulin Glargine [Lantus] 33 unit SQ HS 08/10/16 10/11/16 Insulin LISPRO [HumaLOG] 0 - 10 units SQ TIDWM 08/10/16 10/11/16 Roflumilast [Daliresp] 500 mcg PO DAILY 08/10/16 10/11/16 Meclizine [Antivert] 25 mg PO TID PRN 09/19/16 10/11/16 Previous Rx's Medication Instructions Recorded Ipratropium/Albuterol Neb [Duoneb] 3 ml IH Q6HR PRN #90 vial.neb 05/02/16 Sucralfate [Carafate] 1 gm PO QIDAC #120 tab 09/22/16 amLODIPine [Norvasc] 5 mg PO HS #30 tab 09/30/16 Albuterol Sulfate [Ventolin Hfa] 2 puff IH Q4H PRN #1 inh 10/15/16 Budesonide/Formoterol 160/4.5 2 puff IH BIDR #1 inh 10/15/16 [Symbicort 160/4.5] levoFLOXacin [Levaquin] 500 mg PO Q24H #10 tab 10/16/16 metroNIDAZOLE [Flagyl] 500 mg PO Q8H #30 tab 10/16/16 predniSONE [PredniSONE] 20 mg PO DAILY 12 Days 10/16/16 Allergies Allergy/AdvReac Type Severity Reaction Status Date / Time NSAIDS (Non-Steroidal Allergy Unknown See Verified 10/11/16 14:14 Anti-Inflamma Comments Penicillins Allergy Unknown Hives Verified 10/11/16 14:14 lisinopril AdvReac Cough Verified 10/11/16 14:14 tramadol AdvReac Nausea Verified 10/11/16 14:14 Constitutional: Denies: fever, chills, weakness, weight change Eyes: Denies: eye pain, eye discharge, vision change ENT ED: Denies: ear pain, throat pain, dental pain, hearing loss, epistaxis, congestion, dysphagia Cardiovascular: Denies: chest pain, palpitations, dyspnea on exertion, edema, syncope Respiratory: Reports: dyspnea, wheezes. Denies: cough, hemoptysis, stridor Gastrointestinal: Denies: abdominal pain, nausea, vomiting, diarrhea, constipation, hematemesis, melena, hematochezia Genitourinary: Denies: dysuria, frequency, hematuria, discharge Musculoskeletal: Denies: back pain, neck pain, arthralgia, myalgia Integumentary: Denies: rash, abrasion, lesions Neurological: Denies: headache, weakness, numbness, paresthesias, confusion, abnormal gait, vertigo Psychiatric: Denies: anxiety, depression, suicidal thoughts, homicidal thoughts , auditory hallucinations, visual hallucinations Endocrine: Denies: fatigue Hematological/Lymphatic: Denies: easy bleeding, easy bruising Allergic/Immunologic: Denies: facial swelling, urticaria Past Medical History - Past Medical History Medical history: Reports: asthma, COPD, diabetes, GERD, hyperlipidemia, hypertension, renal disease Surgical history: Reports: appendectomy, cholecystectomy, knee replacement, other Psychiatric history: Reports: anxiety PUBLIC POLICY COORDINATOR history: Reports: ectopic , other - Social History Smoking Status: Former smoker Smokeless Tobacco Status: No Alcohol use: Reports: none Drug use: Reports: none Physical Exam - General Limitations: no limitations General appearance: alert - Head Head exam: atraumatic, normocephalic, normal inspection - Eye Eye exam: Present: normal appearance, PERRL, EOMI - ENT ENT exam: normal exam, normal oropharynx, mucous membranes moist - Neck Neck exam: Present: normal inspection, full ROM, trachea midline - Chest Chest inspection: Present: normal inspection, symmetric chest wall rise - Respiratory Respiratory exam: Present: wheezes, accessory muscle use, prolonged expiratory phase - Cardiovascular Cardiovascular exam: Present: regular rate, normal rhythm, normal heart sounds - Abdominal Exam Abdominal exam: Present: soft, Non-Tender. Absent: tenderness, distention, guarding, rebound, rigidity - Extremities Exam Extremities exam: Present: normal inspection, full ROM. Absent: tenderness, pedal edema - Expanded Lower Extremity Exam Neurovascular/Tendon exam: Absent: motor deficit, sensory deficit, tendon deficit Gait: observed and normal - Back Exam Back exam: Present: normal inspection, full ROM. Absent: tenderness - Neurological Exam Neurological exam: Present: alert, oriented X3 - Psychiatric Psychiatric exam: Present: normal affect, normal mood - Skin Skin exam: Present: warm, dry, intact, normal color Course - Reevaluation(s) Reevaluation #1: 56-year-old with COPD comes in with an exacerbation increasing shortness of breath. Workup here included a negative chest x-ray, negative troponin negative BNP. Patient will be admitted for further evaluation and treatment. Time: 20:44 - Consultations Consultation #1: Discussed with Dr. Rousseau, admit. Time: 20:43 Vital Signs Temperature 97 F L 10/23/16 19:37 Pulse Rate 103 10/23/16 19:37 Respiratory Rate 22 10/23/16 19:37 Blood Pressure 142/83 10/23/16 19:37 O2 Sat by Pulse Oximetry 93 10/23/16 19:37 Temperature 97 F L 10/23/16 19:37 Pulse Rate 103 10/23/16 19:37 Respiratory Rate 18 10/23/16 20:13 Blood Pressure 142/83 10/23/16 19:37 O2 Sat by Pulse Oximetry 94 10/23/16 20:13 Oxygen Delivery Oxygen Delivery Nasal Cannula Shortness of Breath/Dyspnea - Lab Data Lab results reviewed: Yes I reviewed the patient's lab results. Result diagrams: 10/23/16 19:53 10/23/16 19:53 Lab Results 10/23/16 10/23/16 10/23/16 Range/Units 19:53 19:53 19:53 WBC 6.9 (4.3-11.1) K/mcL RBC 3.52 L (3.82-4.97) M/mcL Hgb 9.7 L (11.5-15.4) g/dL Hct 31.9 L (35.3-44.9) % MCV 90.6 (83.0-100.0) fL MCH 27.6 L (28.0-33.3) pg MCHC 30.4 L (31.6-35.5) g/dL RDW 15.6 H (11.5-14.5) % Plt Count 244 (140-400) K/mcL MPV 10.8 (9.4-12.4) fL Immature Gran % 5.5 H (0-4) % Seg Neutrophils % 74.1 % Lymphocytes % 12.1 % Monocytes % 7.2 % Eosinophils % 0.4 % Basophils % 0.7 % Neutrophils # 5.1 (1.6-8.9) K/mcL Lymphocytes # 0.8 (0.6-4.6) K/mcL Monocytes # 0.5 (0.0-1.3) K/mcL Eosinophils # 0.0 (0.0-0.6) K/mcL Basophils # 0.1 (0.0-0.2) K/mcL Nucleated RBCs/100 WBC 0.3 H (0) /100 WBC Platelet Estimate Normal (Normal) Immature Plt Fraction 4.1 (1.1-6.1) % Polychromasia 1+ A (Not Present) Sodium 139 (136-145) mEq/L Potassium 3.6 (3.5-4.5) mEq/L Chloride 103 (98-109) mEq/L Carbon Dioxide 25 (19-29) mEq/L BUN 13 (7-20) mg/dL Creatinine 0.62 (0.57-1.11) mg/dL Est GFR ( Amer) > 60 (> 60) Est GFR (Non-Af Amer) > 60 (> 60) BUN/Creatinine Ratio 21 (6-26) Glucose 311 H (70-99) mg/dL Calculated Osmolality 300 (280-300) Lactic Acid 1.6 (0.5-2.2) mmol/L Calcium 8.9 (8.6-10.8) mg/dL Troponin I (0-0.03) ng/mL B-Natriuretic Peptide (0-100) pg/mL 10/23/16 10/23/16 Range/Units 19:53 19:53 WBC (4.3-11.1) K/mcL RBC (3.82-4.97) M/mcL Hgb (11.5-15.4) g/dL Hct (35.3-44.9) % MCV (83.0-100.0) fL MCH (28.0-33.3) pg MCHC (31.6-35.5) g/dL RDW (11.5-14.5) % Plt Count (140-400) K/mcL MPV (9.4-12.4) fL Immature Gran % (0-4) % Seg Neutrophils % % Lymphocytes % % Monocytes % % Eosinophils % % Basophils % % Neutrophils # (1.6-8.9) K/mcL Lymphocytes # (0.6-4.6) K/mcL Monocytes # (0.0-1.3) K/mcL Eosinophils # (0.0-0.6) K/mcL Basophils # (0.0-0.2) K/mcL Nucleated RBCs/100 WBC (0) /100 WBC Platelet Estimate (Normal) Immature Plt Fraction (1.1-6.1) % Polychromasia (Not Present) Sodium (136-145) mEq/L Potassium (3.5-4.5) mEq/L Chloride (98-109) mEq/L Carbon Dioxide (19-29) mEq/L BUN (7-20) mg/dL Creatinine (0.57-1.11) mg/dL Est GFR ( Amer) (> 60) Est GFR (Non-Af Amer) (> 60) BUN/Creatinine Ratio (6-26) Glucose (70-99) mg/dL Calculated Osmolality (280-300) Lactic Acid (0.5-2.2) mmol/L Calcium (8.6-10.8) mg/dL Troponin I 0.01 (0-0.03) ng/mL B-Natriuretic Peptide 26 (0-100) pg/mL - Radiology Data Radiology results reviewed: Yes I reviewed the patient's radiology results. Chest X-Ray 10/23/16 19:43 IMPRESSION: No definite acute abnormality detected. D/ / Sudhir Carmona MD / Sudhir Carmona MD Interpreting Provider: Sudhir Carmona MD - EKG Data EKG attestation: Yes I reviewed and interpreted this EKG. EKG shows normal: Reports: sinus rhythm Rate: Reports: normal Rhythm: Reports: NSR When compared to previous EKG there are: no significant changes (10/14/2016) Interpretation: Reports: no acute changes
[2016-10-23 20:01] LABS: Basophils # 0.1 K/mcL (0.0-0.2); Basophils % 0.7 %; Eosinophils % 0.4 %; Hematocrit 31.9 % (35.3-44.9); Hemoglobin 9.7 g/dL (11.5-15.4); Immature Granulocytes % 5.5 % (0-4); Immature Platelets 4.1 % (1.1-6.1); Lymphocytes # 0.8 K/mcL (0.6-4.6); Lymphocytes % 12.1 %; Mean Corpuscular HGB Conc 30.4 g/dL (31.6-35.5); Mean Corpuscular Hemoglobin 27.6 pg (28.0-33.3); Mean Corpuscular Volume 90.6 fL (83.0-100.0); Mean Platelet Volume 10.8 fL (9.4-12.4); Monocytes # 0.5 K/mcL (0.0-1.3); Monocytes % 7.2 %; Neutrophils # 5.1 K/mcL (1.6-8.9); Nucleated Red Blood Cells 0.3 /100 WBC (0); Platelet Count 244 K/mcL (140-400); Red Blood Count 3.52 M/mcL (3.82-4.97); Red Cell Distribution Width 15.6 % (11.5-14.5); Segmented Neutrophils % 74.1 %
[2016-10-23 20:12] LABS: BUN/Creatinine Ratio 21 (6-26); Blood Urea Nitrogen 13 mg/dL (7-20); Calcium 8.9 mg/dL (8.6-10.8); Carbon Dioxide 25 mEq/L (19-29); Chloride 103 mEq/L (98-109); Glucose 311 mg/dL (70-99); Osmolality,Calculated 300 (280-300); Potassium 3.6 mEq/L (3.5-4.5); Sodium 139 mEq/L (136-145); eGFR For African Americans > 60 (> 60); eGFR For Non-African Americans > 60 (> 60)
[2016-10-23 20:34] LABS: Platelet Estimate Normal (Normal); Polychromasia 1+ (Not Present)
[2016-10-23] MEDS ORDERED: *HR* HYDROcodone/Acet 5/325 mg TABLET PO ONE (20:37)
[2016-10-23] MEDS ORDERED: Furosemide 40 MG/4 ML VIAL IVP ONE (22:25)
[2016-10-23] MEDS: Pantoprazole 40 MG VIAL IVP SCH (22:34)
[2016-10-23] MEDS ORDERED: Acetaminophen 325 MG TABLET PO PRN (22:46)
[2016-10-23] MEDS ORDERED: Naloxone 0.4 MG/ML INJ IVP PRN (22:46)
[2016-10-23] MEDS ORDERED: Dextrose Gel 15 GM PO PRN ×2 (22:57)
[2016-10-23] MEDS ORDERED: D5% in Water 1,000 ML IVC PRN (22:57)
[2016-10-23] MEDS ORDERED: *HR* Dextrose 50 % in Water (Syg) 50 ML SYRINGE IVP PRN (22:57)
--- NOTE | 2016-10-23 23:13 | Internal Med History&Physical ---
<Jasper Pena - Last Filed: 10/23/16 23:47> Date of Encounter: 10/23/16 Time of Encounter: 22:00 Assessment and Plan (1) Acute exacerbation of CHF (congestive heart failure) Current visit: Yes Status: Acute Patient presents with acute exacerbation of CHF versus acute exacerbation of COPD. Patient reports she has been having swelling of the bilateral LEs more frequently accompanied by SOB and orthopnea. Patient denies taking any diuretics at this time. Patient's last echocardiogram was in June. Echocardiogram ordered. IVP 40 mg lasix ordered now (patient's current GFR is > 60 on admission). Patient placed on continuous cardiac telemetry. 1.5L fluid restriction daily. Will monitor I&O and daily weight. Patient to be monitored closely for signs of cardiac and/or respiratory distress. Will consider possible cardiology consult based on echocardiogram results. Qualifiers: Congestive heart failure type: unspecified congestive heart failure type Qualified Code(s): I50.9 - Heart failure, unspecified (2) Acute exacerbation of chronic obstructive pulmonary disease Current visit: Yes Status: Acute Patient presents with acute exacerbation of COPD versus acute exacerbation of CHF. Patient reports she was a former smoker who smoked 1 or more PPD and quit in April after she required emergency intubation during a hospital admission due to SOB. DuoNebs Q4 ordered scheduled. Supplemental O2 @ 3L with titration if SpO2 <92%. Continuous SpO2 monitoring. BiPap ordered HS. (3) Cough Current visit: Yes Status: Acute Patient presents with acute cough with sputum production that she reports is yellow. Patient is a former smoker who reports quitting in April 2016. Sputum culture ordered. Tessalon 100 mg PO TID ordered. Supplemental O2 with BiPap HS ordered. (4) Tachycardia Current visit: Yes Status: Acute Patient presents with acute on chronic tachycardia. She states that she always has tachycardia occasionally. Current HR on examination is 111 bpm. Patient is in no acute distress. Tachycardia most likely related to patient's current acute exacerbation of CHF versus acute exacerbation of COPD, SOB, and fluid overload. Patient is not currently on any diuretic. Patient to receive 40 mg IVP lasix now. Patient placed on continuous cardiac telemetry. Echocardiogram ordered. Will monitor patient and VS. (5) Diabetes mellitus Current visit: Yes Status: Chronic Patient presents with history of chronic diabetes controlled by insulin. Patient 's blood glucose on admission was 324. Patient states that she takes insulin in a.m. and with meals. Will add low-dose correction insulin sliding scale for HS coverage as well. Hypoglycemia protocol ordered. A1c ordered. Blood glucose monitoring ACHS. Diabetes education consult ordered. Qualifiers: Diabetes mellitus type: type 2 Diabetes mellitus complication status: with hyperglycemia Diabetes mellitus fpc insulin use: with manager terminal use Qualified Code(s): E11.65 - Type 2 diabetes mellitus with hyperglycemia; Z79.4 - prison (current) 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 (6) GERD (gastroesophageal reflux disease) Current visit: Yes Status: Chronic Patient presents with chronic gastroesophageal reflux disease. Patient's by mouth Nexium and administer IVP Protonix 40 mg twice a day. IVP Zofran Q6 PRN ordered for nausea related to GERD. Qualifiers: Esophagitis presence: without esophagitis Qualified Code(s): K21.9 - Gastro -esophageal reflux disease without esophagitis (7) HTN (hypertension) Current visit: Yes Status: Chronic Patient presents with history of chronic hypertension. Patient's blood pressure on admission is 142/83. Monitor patient and vital signs and continue patient's Norvasc. Qualifiers: Hypertension type: essential hypertension Qualified Code(s): I10 - Essential (primary) hypertension (8) HLD (hyperlipidemia) Current visit: Yes Status: Chronic Patient presents with history of chronic hyperlipidemia. Patient does not currently take any medications for lipid control. Lipid panel ordered and will add Lipitor 20 mg daily to patient's medications while inpatient. Qualifiers: Hyperlipidemia type: pure hypercholesterolemia Qualified Code(s): E78.00 - Pure hypercholesterolemia, unspecified; E78.0 - Pure hypercholesterolemia (9) DVT prophylaxis Current visit: Yes Status: Acute Patient to be placed on DVT prophylaxis due to current admission protocol and current symptoms. Heparin 5,000 units SQ Q8 ordered. Internal Medicine - H&P: HPI Chief complaint: Shortness of breath/Dyspnea Admitted From: Emergency Dept Plans for Post Hospital Care: Home History of present illness: Ms. Rne is a 56 year old female who presents from the ED with chief complaint of shortness of breath and dyspnea since 2 a.m. this morning. Patient states that she is always short of breath but this is worse than usual. She also states that she has not felt well for the past several days and that her feet and legs have become swollen and painful. Patient currently reports SOB, dyspnea , and cough with sputum production. Ms. Ren denies recent illness, fever, chills, weakness, vision changes, chest pain, abdominal pain, nausea, vomiting, diarrhea, constipation, unusual bleeding, headache, weakness, confusion, presyncope, or syncope. Patient's medical history includes asthma, COPD, diabetes with insulin dependency, GERD, hyperlipidemia, hypertension, and renal disease. Patient currently shows signs and symptoms of acute exacerbation of CHF versus acute exacerbation of COPD due to current bilateral pedal edema, fluid overload, SOB, and orthopnea. On admission to ED, patient's Hgb was 9.7 ( down from 12.6 on 09/27) and Hct was 31.9 (down from 40.6 on 09/27). Blood glucose was 324. On examination, patient has HR of 111 which is most likely due to current SOB and CHF/COPD exacerbation. Patient is currently hemodynamically stable and in no distress. Information obtained from patient, chart review, and previous medical records. Ms. Ren is at high risk for respiratory distress based on current symptoms, previous history requiring emergency intubation for similar symptoms in April, and risk factors and will be placed as observation status. Time spent with patient >40 minutes. Past Med Surg Social Fam HX - Past Medical History Source: patient, old records reviewed Medical history: asthma, COPD, diabetes, GERD, hyperlipidemia, hypertension, renal disease Psychiatric history: anxiety - Past Surgical History Surgical History: appendectomy, cholecystectomy, knee replacement, other - Social History Smoking Status: Former smoker Packs per day: Smoked 1 PPD - reports quitting in April after being intubated Smokeless Tobacco Status: No Alcohol use: none Drug use: none Current living situation: Home Activity Level: Independent ambulation Recent Out of Country Travel Within the Last 8 Weeks: No Exposure or Possible Exposure to Illness During Travel: No - Family History Father Race: Family Member Ethnicity: Non- Living Status: Hx Family Cardiac Disorders: Yes (Atheroslcerosis) Mother Race: Family Member Ethnicity: Non- Living Status: Still Living Hx Family Cardiac Disorders: Yes (HTN) Hx Family Endocrine Disorder: Yes (DM) Internal Medicine - H&P: Meds Pantoprazole Sodium [Protonix] 40 mg PO DAILY 02/10/15 [History] Ipratropium/Albuterol Neb [Duoneb] 3 ml IH Q6HR PRN #90 vial.neb 03/12/17 [Rx] cloNIDine HCl [Clonidine HCl] 0.3 mg PO QID 05/16/16 [History] Aspirin 81 mg PO DAILY 07/19/16 [History] Oxycodone HCl [Oxaydo] 5 mg PO Q8H PRN 07/19/16 [History] Oxygen 3 l .ROUTE AD 07/19/16 [History] Ranitidine HCl [Zantac] 150 mg PO DAILY 07/19/16 [History] clonazePAM [Klonopin] 1 mg PO BID 07/31/16 [History] Insulin Glargine [Lantus] 33 unit SQ HS 08/10/16 [History] Insulin LISPRO [HumaLOG] 0 - 10 units SQ TIDWM 08/10/16 [History] Roflumilast [Daliresp] 500 mcg PO DAILY 08/10/16 [History] Meclizine [Antivert] 25 mg PO TID PRN 09/19/16 [History] Sucralfate [Carafate] 1 gm PO QIDAC #120 tab 09/22/16 [Rx] amLODIPine [Norvasc] 5 mg PO HS #30 tab 09/30/16 [Rx] Albuterol Sulfate [Ventolin Hfa] 2 puff IH Q4H PRN #1 inh 10/15/16 [Rx] Budesonide/Formoterol 160/4.5 [Symbicort 160/4.5] 2 puff IH BIDR #1 inh [Rx] levoFLOXacin [Levaquin] 500 mg PO Q24H #10 tab 10/16/16 [Rx] metroNIDAZOLE [Flagyl] 500 mg PO Q8H #30 tab 10/16/16 [Rx] predniSONE [PredniSONE] 20 mg PO DAILY 12 Days 10/16/16 [Rx] 3 Allergy/AdvReac Type Severity Reaction Status Date / Time NSAIDS (Non-Steroidal Allergy Unknown See Verified 10/11/16 14:14 Anti-Inflamma Comments Penicillins Allergy Unknown Hives Verified 10/11/16 14:14 lisinopril AdvReac Cough Verified 10/11/16 14:14 tramadol AdvReac Nausea Verified 10/11/16 14:14 All Systems PM: A 10-system review of systems was performed and is negative for pertinent findings except as documented above in the HPI. - Constitutional Constitutional: no chills, no fever(s), no night sweats - EENT Eyes: no change in vision, no discharge, no pain, no photophobia Ears: no ear discharge, no ear pain, no tinnitus Nose, mouth and throat: no dysphagia, no nasal discharge, no neck pain, no sore throat - Breasts Breasts: as per HPI - Cardiovascular Cardiovascular ROS IM: as per HPI, irregular heart rhythm (Tachycardia) - Respiratory Respiratory: as per HPI, cough, dyspnea, dyspnea on exertion, wheezing, excessive phlegm production, change in phlegm color - Gastrointestinal Gastrointestinal: no abdominal pain, no diarrhea, no hematemesis, no hematochezia, no melena, no nausea, no vomiting - Genitourinary Genitourinary: no change in urinary stream, no dysuria, no flank pain, no hematuria Menstruation: as per HPI - Musculoskeletal Musculoskeletal ROS IM: no numbness, no tingling - Integumentary Integumentary IM: as per HPI, other (2+ pitting edema of bilateral LEs), no rash , no unusual bruising - Neurological Neurological ROS: no confusion, no convulsions, no focal weakness, no numbness, no tingling, no tremor(s) - Psychiatric Psychiatric: as per HPI - Endocrine Endocrine IM: as per HPI - Hematologic/Lymphatic Hematologic/Lymphatic: no easy bruising - Allergic/Immunologic Allergic/Immunologic: as per HPI - Constitutional Vitals: Temp Pulse Resp BP Pulse Ox 97.9 F 97 20 149/87 94 10/23/16 22:10 10/23/16 22:10 10/23/16 22:10 10/23/16 22:10 10/23/16 22:12 General appearance: Present: cooperative, mild distress, A&O X 3, pleasant, obese, answers questions appropriately - Head Head exam: Present: atraumatic, normocephalic - Eye Eye exam: Present: PERRL, conjuntiva pink, sclera anicteric Pupils: Present: PERRL - ENT ENT exam: Present: normal exam, normal external ear exam - Neck Neck exam general surgery: Present: normal inspection, supple, trachea midline. Absent: lymphadenopathy - Respiratory Respiratory exam: Present: accessory muscle use, decreased breath sounds - Cardiovascular Cardiovascular exam: Present: tachycardia - GI/Abdominal GI/Abdominal exam: Present: normal bowel sounds, soft, no peritoneal signs. Absent: distended, tenderness - Rectal Rectal exam: Present: deferred - Additional comments: exam deferred. - Extremities Exam Extremities exam: Present: pedal edema (2+ bilateral pitting edema), radial pulses palpable and symmetrical - Back Exam Back exam: Present: normal inspection - Neurological Exam Neurological exam: Present: CN II-XII intact, oriented X3, no focal deficits. Absent: pronater drift, facial droop, speech deficit - Psychiatric Psychiatric exam: Present: normal affect, normal mood - Skin Skin exam: Present: dry, intact Internal Med - H&P Results - Labs CBC & Chem 7: 10/23/16 19:53 10/23/16 19:53 - EKG Data EKG shows normal: sinus rhythm Rate: normal - EKG Data When compared to previous EKG: there is no significant change EKG comments: 10/23/16 23:19 EKG dated 10/14/16 shows sinus rhythm with sinus arrhythmia. EKG dated 10/23/16 shows sinus rhythm and normal ECG. - Diagnostic Studies Chest x-ray Additional comments: Impressions Chest X-Ray 10/23/16 19:43 IMPRESSION: No definite acute abnormality detected. D/ / Sudhir Carmona MD / Sudhir Carmona MD Interpreting Provider: Sudhir Carmona MD <Otis Rousseaushadijade - Last Filed: 10/24/16 03:06> Date of Encounter: 10/24/16 Internal Medicine - H&P: HPI History of present illness: Ms. Ren is a 56 year old female All Systems PM: A 10-system review of systems was performed and is negative for pertinent findings except as documented above in the HPI. - Constitutional Vitals: Temp Pulse Resp BP Pulse Ox 97.1 F L 81 16 148/88 97 10/24/16 02:30 10/24/16 02:30 10/24/16 02:30 10/24/16 02:30 10/24/16 02:30 Internal Med - H&P Results - Labs CBC & Chem 7: 10/23/16 19:53 10/23/16 19:53 Labs: Urine 10/23/16 Range/Units 23:50 Urine Color Yellow (Yellow) Urine Clarity Clear (Clear) Urine pH 6.0 (5.0-8.0) pH Units Ur Specific [place] 1.012 (1.010-1.025) Urine Protein Trace (Neg-Trace) mg/dL Urine Glucose (UA) Normal (Normal) mg/dL - Attending Attestation I saw and examined this patient independently. I have discussed the with TAR POT WORKER Mr Pena regarding the management plan. I have reviewed and agree with the documentation. Patient came with shortness of breath with wheezing. History of COPD. Consider COPD exacerbation. After ER treatment with nebulizer and steroid, SOB has improved. Patient was found to bilateral leg swelling, also consider CHF, probably with fluid overload. Will give patient Lasix IV and check echocardiogram in a.m.
[2016-10-23] MEDS: Ipratropium/Albuterol Neb 3 ML IH SCH (23:14)
[2016-10-23] MEDS: *HR* Heparin 5,000 UNIT/ML VIAL SQ SCH (23:17)
[2016-10-23] MEDS: Insulin LISPRO 300 UNITS/3 ML VIAL SQ SCH (23:17)
[2016-10-23] MEDS: Aspirin Enteric Coated 81 MG Tablet PO SCH (23:17)
[2016-10-23] MEDS: *HR* Morphine 2 MG/ML SYRINGE IVP PRN (23:18)
[2016-10-23] MEDS ORDERED: Benzonatate 100 MG CAPSULE PO PRN (23:44)
[2016-10-24 00:24] LABS: Bilirubin,Urine Negative (Negative); Blood,Urine Negative (Negative); Clarity,Urine Clear (Clear); Color,Urine Yellow (Yellow); Glucose,Urine (UA) Normal (Normal); Ketones,Urine Negative (Negative); Leukocyte Esterase,Urine Negative (Negative); Nitrite,Urine Negative (Negative); Protein,Urine Trace mg/dL (Neg-Trace); Specific Gravity,Urine 1.012 (1.010-1.025); Urobilinogen,Urine Normal (Normal)
[2016-10-24 00:28] LABS: Bacteria,Urine Few per hpf (None-Few); Hyaline Casts,Urine None Seen per lpf (None-Few); RBC,Urine 0-3 per hpf (0-3); Squamous Epithelial Cell,Urine Few per lpf (None-Few); WBC,Urine 0-3 per hpf (0-3)
[2016-10-24] MEDS: Ondansetron 4 MG/2 ML VIAL IVP PRN ×3 (02:44→19:54)
[2016-10-24] MEDS: *HR* HYDROcodone/Acet 5/325 mg TABLET PO PRN ×2 (02:55→14:27)
[2016-10-24] MEDS: *HR* Morphine 2 MG/ML SYRINGE IVP PRN ×5 (03:55→21:35)
[2016-10-24] MEDS: Ipratropium/Albuterol Neb 3 ML IH SCH ×5 (04:24→21:09)
[2016-10-24] MEDS: *HR* Heparin 5,000 UNIT/ML VIAL SQ SCH ×3 (05:06→21:34)
[2016-10-24 05:53] LABS: Basophils % 0.7 %; Hematocrit 32.3 % (35.3-44.9); Hemoglobin 9.9 g/dL (11.5-15.4); Immature Granulocytes % 5.4 % (0-4); Lymphocytes # 0.5 K/mcL (0.6-4.6); Lymphocytes % 8.1 %; Mean Corpuscular HGB Conc 30.7 g/dL (31.6-35.5); Mean Corpuscular Hemoglobin 27.7 pg (28.0-33.3); Mean Corpuscular Volume 90.2 fL (83.0-100.0); Mean Platelet Volume 11.5 fL (9.4-12.4); Monocytes # 0.1 K/mcL (0.0-1.3); Monocytes % 1.4 %; Neutrophils # 4.9 K/mcL (1.6-8.9); Platelet Count 263 K/mcL (140-400); Red Blood Count 3.58 M/mcL (3.82-4.97); Red Cell Distribution Width 15.2 % (11.5-14.5); Segmented Neutrophils % 84.4 %
[2016-10-24 06:01] LABS: INR 1.1
[2016-10-24 06:04] LABS: Activated Partial Thrombo Time 29.3 Seconds (26.0-36.0)
[2016-10-24 06:08] LABS: Hemoglobin A1C 8.6 %
[2016-10-24 06:09] LABS: BUN/Creatinine Ratio 25 (6-26); Blood Urea Nitrogen 17 mg/dL (7-20); Calcium 8.9 mg/dL (8.6-10.8); Carbon Dioxide 23 mEq/L (19-29); Chloride 102 mEq/L (98-109); Chol/HDL Ratio 3.9 (0-4.9); Cholesterol 173 mg/dL (< 200); Glucose 330 mg/dL (70-99); HDL Cholesterol 44 mg/dL (40-59); LDL Cholesterol,Calculated 104 mg/dL (0-99); Magnesium 1.2 mg/dL (1.6-2.6); Osmolality,Calculated 302 (280-300); Potassium 3.7 mEq/L (3.5-4.5); Sodium 139 mEq/L (136-145); Triglycerides 125 mg/dL (< 150); eGFR For African Americans > 60 (> 60); eGFR For Non-African Americans > 60 (> 60)
[2016-10-24 06:39] LABS: Platelet Estimate Normal (Normal)
[2016-10-24] MEDS: Pantoprazole 40 MG VIAL IVP SCH ×2 (08:25→21:34)
[2016-10-24] MEDS: Insulin LISPRO 300 UNITS/3 ML VIAL SQ SCH ×4 (08:25→21:36)
[2016-10-24] MEDS: Aspirin Enteric Coated 81 MG Tablet PO SCH (08:26)
[2016-10-24] MEDS: predniSONE 20 MG TABLET PO SCH (08:26)
--- NOTE | 2016-10-24 10:19 | Internal Med Progress Note ---
Date of Encounter: 10/24/16 Time of Encounter: 10:16 - Assessment and plan (1) Acute respiratory failure Current Visit: No Status: Resolved Assessment and plan: Acute on chronic hypoxic respiratory failure secondary to combination of acute diastolic CHF exacerbation with mild acute COPD exacerbation due to acute bacterial bronchitis Increase dose of Lasix IV to 40 mg 3 times a day due to severe leg swelling, strict I's and O's and daily weight Start Levaquin, prednisone daily Oxygen therapy, DuoNeb's Qualifiers: Respiratory failure complication: hypoxia and hypercapnia Qualified Code(s) : J96.01 - Acute respiratory failure with hypoxia; J96.02 - Acute respiratory failure with hypercapnia (2) Acute exacerbation of chronic obstructive airways disease Current Visit: No Status: Acute (3) Diabetes mellitus Current Visit: Yes Status: Chronic Assessment and plan: Insulin sliding scale Takes Lantus 33 units at night, start Levemir 15 units twice a day Qualifiers: Diabetes mellitus type: type 2 Diabetes mellitus complication status: with hyperglycemia Diabetes mellitus half-way insulin use: with half-way use Qualified Code(s): E11.65 - Type 2 diabetes mellitus with hyperglycemia; Z79.4 - bed bug exterminator (current) 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 (4) HLD (hyperlipidemia) Current Visit: Yes Status: Chronic Qualifiers: Hyperlipidemia type: pure hypercholesterolemia Qualified Code(s): E78.00 - Pure hypercholesterolemia, unspecified; E78.0 - Pure hypercholesterolemia (5) Acute purulent bronchitis Current Visit: No Status: Acute Assessment and plan: Levaquin and sputum culture (6) Tobacco use disorder Current Visit: No Status: Chronic (7) Acute on chronic respiratory failure Current Visit: No Status: Acute Qualifiers: Respiratory failure complication: hypoxia and hypercapnia Qualified Code(s) : J96.21 - Acute and chronic respiratory failure with hypoxia; J96.22 - Acute and chronic respiratory failure with hypercapnia (8) Sinus tachycardia Current Visit: No Status: Chronic Assessment and plan: Likely secondary to CHF and COPD exacerbations (9) JORGE (obstructive sleep apnea) Current Visit: No Status: Chronic (10) Acute exacerbation of CHF (congestive heart failure) Current Visit: Yes Status: Acute Qualifiers: Congestive heart failure type: diastolic Qualified Code(s): I50.33 - Acute on chronic diastolic (congestive) heart failure - Subjective Interval history: Feeling very short of breath, bringing up yellowish phlegm, tachycardic, denies any chest pain, no abdominal pain or dysuria, no diarrhea. No fevers - Constitutional Vitals: Temp Pulse Resp BP Pulse Ox 98.2 F 93 16 128/76 94 10/24/16 07:37 10/24/16 07:37 10/24/16 08:01 10/24/16 07:37 10/24/16 08:01 General appearance: Present: cooperative, mild distress, A&O X 3, pleasant, obese, answers questions appropriately - Head Head exam: Present: atraumatic, normocephalic - Eye Eye exam: Present: PERRL, conjuntiva pink, sclera anicteric Pupils: Present: PERRL - Neck Neck exam general surgery: Present: supple, trachea midline. Absent: lymphadenopathy - Respiratory Respiratory exam: Present: CTAB, rales (Bibasilar crackles with minimal diffuse wheezing). Absent: accessory muscle use, rhonchi, wheezes - Cardiovascular Cardiovascular exam: Present: RRR, +S1, +S2. Absent: diastolic murmur, gallop, rubs, systolic murmur - GI/Abdominal GI/Abdominal exam: Present: distended, normal bowel sounds, soft, no peritoneal signs. Absent: tenderness - Extremities Exam Extremities exam: Present: pedal edema (+3 pitting edema both lower extremities) , warm, radial pulses palpable and symmetrical. Absent: calf tenderness, cyanotic - Neurological Exam Neurological exam: Present: CN II-XII intact, oriented X3, no focal deficits. Absent: pronater drift, facial droop, speech deficit - Skin Skin exam: Present: dry, intact Internal Medicine: Result - Labs CBC & Chem 7: 10/24/16 05:05 10/24/16 05:05 Labs: Short CBC 10/24/16 Range/Units 05:05 WBC 5.8 (4.3-11.1) K/mcL Hgb 9.9 L (11.5-15.4) g/dL Hct 32.3 L (35.3-44.9) % Plt Count 263 (140-400) K/mcL Neutrophils # 4.9 (1.6-8.9) K/mcL BMP 10/24/16 05:05 Sodium 139 Potassium 3.7 Chloride 102 Carbon Dioxide 23 BUN 17 Creatinine 0.68 Glucose 330 H Calcium 8.9 Urine 10/23/16 Range/Units 23:50 Urine Color Yellow (Yellow) Urine Clarity Clear (Clear) Urine pH 6.0 (5.0-8.0) pH Units Ur Specific [place] 1.012 (1.010-1.025) Urine Protein Trace (Neg-Trace) mg/dL Urine Glucose (UA) Normal (Normal) mg/dL - ABG Interpretation ABG results: PT/INR, D-dimer PT 12.0 Seconds (9.4-12.1) 10/24/16 05:05 Consult Discharge Plan - Plan Referrals: NONE,PCP [Primary Care Provider] -
[2016-10-24] MEDS: Levofloxacin 750 MG/150 ML 750 MG/150 ML BAG IVPB SCH (11:17)
[2016-10-24] MEDS: Furosemide 40 MG/4 ML VIAL IVP SCH ×2 (11:17→17:14)
[2016-10-24] MEDS: clonazePAM 1 MG TABLET PO SCH ×2 (11:18→21:36)
[2016-10-24] MEDS: cloNIDine HCl 0.1 MG TABLET PO SCH ×2 (11:18→21:36)
[2016-10-24] MEDS: hydrALAZINE 25 MG TABLET PO SCH ×2 (11:18→17:14)
[2016-10-24] MEDS: Magnesium Oxide 400 MG TABLET PO SCH ×2 (11:18→21:35)
[2016-10-24] MEDS: Insulin DETEMIR 100 UNIT/ML X5UNITS SQ SCH ×2 (12:46→21:35)
[2016-10-24] MEDS: *HR* Metoprolol 5 MG/5 ML VIAL IVP PRN ×2 (14:20→22:27)
[2016-10-25] MEDS: *HR* Morphine 2 MG/ML SYRINGE IVP PRN ×5 (02:29→20:27)
[2016-10-25] MEDS: Ondansetron 4 MG/2 ML VIAL IVP PRN ×3 (04:07→20:27)
[2016-10-25] MEDS: Ipratropium/Albuterol Neb 3 ML IH SCH ×6 (04:26→20:41)
[2016-10-25 05:11] LABS: Hematocrit 33.3 % (35.3-44.9); Hemoglobin 10.5 g/dL (11.5-15.4); Mean Corpuscular HGB Conc 31.5 g/dL (31.6-35.5); Mean Corpuscular Hemoglobin 28.5 pg (28.0-33.3); Mean Corpuscular Volume 90.5 fL (83.0-100.0); Mean Platelet Volume 10.9 fL (9.4-12.4); Platelet Count 365 K/mcL (140-400); Red Blood Count 3.68 M/mcL (3.82-4.97); Red Cell Distribution Width 15.5 % (11.5-14.5)
[2016-10-25 05:30] LABS: BUN/Creatinine Ratio 37 (6-26); Calcium 9.2 mg/dL (8.6-10.8); Carbon Dioxide 29 mEq/L (19-29); Chloride 100 mEq/L (98-109); Glucose 147 mg/dL (70-99); Osmolality,Calculated 299 (280-300); Potassium 3.5 mEq/L (3.5-4.5); Sodium 140 mEq/L (136-145); eGFR For African Americans > 60 (> 60); eGFR For Non-African Americans > 60 (> 60)
[2016-10-25 05:31] LABS: Blood Urea Nitrogen 29 mg/dL (7-20)
[2016-10-25] MEDS: hydrALAZINE 25 MG TABLET PO SCH ×5 (06:27→23:40)
[2016-10-25] MEDS: *HR* Heparin 5,000 UNIT/ML VIAL SQ SCH ×3 (06:28→21:39)
[2016-10-25] MEDS: *HR* Metoprolol 5 MG/5 ML VIAL IVP PRN (06:56)
[2016-10-25] MEDS: Pantoprazole 40 MG VIAL IVP SCH (09:13)
[2016-10-25] MEDS: Magnesium Oxide 400 MG TABLET PO SCH ×2 (09:13→21:39)
[2016-10-25] MEDS: predniSONE 20 MG TABLET PO SCH (09:14)
[2016-10-25] MEDS: clonazePAM 1 MG TABLET PO SCH ×2 (09:16→21:39)
[2016-10-25] MEDS: Aspirin Enteric Coated 81 MG Tablet PO SCH (09:16)
[2016-10-25] MEDS: Furosemide 40 MG/4 ML VIAL IVP SCH ×2 (09:16→12:25)
[2016-10-25] MEDS: cloNIDine HCl 0.1 MG TABLET PO SCH ×2 (09:18→21:40)
[2016-10-25] MEDS: *HR* HYDROcodone/Acet 5/325 mg TABLET PO PRN ×2 (09:18→23:29)
[2016-10-25] MEDS: Insulin DETEMIR 100 UNIT/ML X5UNITS SQ SCH ×2 (09:19→21:39)
[2016-10-25] MEDS: Levofloxacin 750 MG/150 ML 750 MG/150 ML BAG IVPB SCH (09:19)
[2016-10-25] MEDS: Insulin LISPRO 300 UNITS/3 ML VIAL SQ SCH ×4 (09:21→21:38)
[2016-10-25] MEDS: Aspirin 81 MG TAB.CHEW PO SCH (09:21)
[2016-10-25] MEDS: *HR* Metoprolol 5 MG/5 ML VIAL IVP SCH (14:46)
--- NOTE | 2016-10-25 15:25 | Internal Med Progress Note ---
Date of Encounter: 10/25/16 Time of Encounter: 15:24 - Assessment and plan (1) Acute respiratory failure Current Visit: No Status: Resolved Assessment and plan: Acute on chronic hypoxic respiratory failure secondary to combination of acute diastolic CHF exacerbation with mild acute COPD exacerbation due to acute bacterial bronchitis Decrease dose of Lasix IV to 40 mg down to 2 times a day , strict I's and O's and daily weight Continue Levaquin day 2, taper prednisone Oxygen therapy, DuoNeb's Qualifiers: Respiratory failure complication: hypoxia and hypercapnia Qualified Code(s) : J96.01 - Acute respiratory failure with hypoxia; J96.02 - Acute respiratory failure with hypercapnia (2) Acute exacerbation of chronic obstructive airways disease Current Visit: No Status: Acute (3) Diabetes mellitus Current Visit: Yes Status: Chronic Assessment and plan: Insulin sliding scale Takes Lantus 33 units at night, continue Levemir 15 units twice a day Qualifiers: Diabetes mellitus type: type 2 Diabetes mellitus complication status: with hyperglycemia Diabetes mellitus superintendent marine oil terminal insulin use: with alf use Qualified Code(s): E11.65 - Type 2 diabetes mellitus with hyperglycemia; Z79.4 - [facility] (current) 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 (4) HLD (hyperlipidemia) Current Visit: Yes Status: Chronic Qualifiers: Hyperlipidemia type: pure hypercholesterolemia Qualified Code(s): E78.00 - Pure hypercholesterolemia, unspecified; E78.0 - Pure hypercholesterolemia (5) Acute purulent bronchitis Current Visit: No Status: Acute Assessment and plan: Levaquin and sputum culture (6) Tobacco use disorder Current Visit: No Status: Chronic (7) Acute on chronic respiratory failure Current Visit: No Status: Acute Qualifiers: Respiratory failure complication: hypoxia and hypercapnia Qualified Code(s) : J96.21 - Acute and chronic respiratory failure with hypoxia; J96.22 - Acute and chronic respiratory failure with hypercapnia (8) Sinus tachycardia Current Visit: No Status: Chronic Assessment and plan: Likely secondary to CHF and COPD exacerbations Patient says she has had sinus tachycardia for years Continue metoprolol IV as needed, start metoprolol 25 mg twice a day (9) JORGE (obstructive sleep apnea) Current Visit: No Status: Chronic (10) Acute exacerbation of CHF (congestive heart failure) Current Visit: Yes Status: Acute Qualifiers: Congestive heart failure type: diastolic Qualified Code(s): I50.33 - Acute on chronic diastolic (congestive) heart failure - Subjective Interval history: Feeling less short of breath, bringing up yellowish phlegm, tachycardic ( 130s at times), denies any chest pain, no abdominal pain or dysuria, no diarrhea. No fevers - Constitutional Vitals: Temp Pulse Resp BP Pulse Ox 97.9 F 106 16 127/80 95 10/25/16 15:03 10/25/16 15:03 10/25/16 15:03 10/25/16 15:03 10/25/16 15:03 General appearance: Present: cooperative, mild distress, A&O X 3, pleasant, obese, answers questions appropriately - Head Head exam: Present: atraumatic, normocephalic - Eye Eye exam: Present: PERRL, conjuntiva pink, sclera anicteric Pupils: Present: PERRL - Neck Neck exam general surgery: Present: supple, trachea midline. Absent: lymphadenopathy - Respiratory Respiratory exam: Present: decreased breath sounds, CTAB, rales (Bibasilar fine crackles). Absent: accessory muscle use, rhonchi, wheezes - Cardiovascular Cardiovascular exam: Present: RRR, +S1, +S2. Absent: diastolic murmur, gallop, rubs, systolic murmur - GI/Abdominal GI/Abdominal exam: Present: normal bowel sounds, soft, no peritoneal signs. Absent: distended, tenderness - Extremities Exam Extremities exam: Present: pedal edema (+2 pitting edema in both lower extremities), warm, radial pulses palpable and symmetrical. Absent: calf tenderness, cyanotic - Neurological Exam Neurological exam: Present: CN II-XII intact, oriented X3, no focal deficits. Absent: pronater drift, facial droop, speech deficit - Skin Skin exam: Present: dry, intact Additional comments: Ramirez catheter in place Internal Medicine: Result - Labs CBC & Chem 7: 10/25/16 04:51 10/25/16 04:51 Labs: Short CBC 10/25/16 Range/Units 04:51 WBC 11.7 H D (4.3-11.1) K/mcL Hgb 10.5 L (11.5-15.4) g/dL Hct 33.3 L (35.3-44.9) % Plt Count 365 (140-400) K/mcL BMP 10/25/16 04:51 Sodium 140 Potassium 3.5 Chloride 100 Carbon Dioxide 29 BUN 29 H D Creatinine 0.78 Glucose 147 H Calcium 9.2 - ABG Interpretation ABG results: PT/INR, D-dimer PT 12.0 Seconds (9.4-12.1) 10/24/16 05:05 Consult Discharge Plan - Plan Referrals: Domitila Lau MD [Non-Partnered Physician] - 10/29/16 1:30 pm
[2016-10-25] MEDS ORDERED: Furosemide 40 MG/4 ML VIAL IVP SCH (17:00)
[2016-10-26] MEDS: Ipratropium/Albuterol Neb 3 ML IH SCH ×7 (00:10→23:42)
[2016-10-26] MEDS: *HR* Morphine 2 MG/ML SYRINGE IVP PRN ×6 (01:59→23:06)
[2016-10-26 04:35] LABS: Hematocrit 30.3 % (35.3-44.9); Hemoglobin 9.1 g/dL (11.5-15.4); Mean Corpuscular Hemoglobin 27.2 pg (28.0-33.3); Mean Corpuscular Volume 90.4 fL (83.0-100.0); Mean Platelet Volume 10.8 fL (9.4-12.4); Platelet Count 316 K/mcL (140-400); Red Blood Count 3.35 M/mcL (3.82-4.97); Red Cell Distribution Width 15.3 % (11.5-14.5)
[2016-10-26] MEDS: Ondansetron 4 MG/2 ML VIAL IVP PRN ×3 (04:44→23:03)
[2016-10-26] MEDS: *HR* Heparin 5,000 UNIT/ML VIAL SQ SCH ×3 (04:45→21:29)
[2016-10-26] MEDS: hydrALAZINE 25 MG TABLET PO SCH ×4 (04:45→23:06)
[2016-10-26] MEDS: *HR* HYDROcodone/Acet 5/325 mg TABLET PO PRN ×2 (04:47→16:54)
[2016-10-26 04:54] LABS: BUN/Creatinine Ratio 44 (6-26); Blood Urea Nitrogen 37 mg/dL (7-20); Calcium 8.9 mg/dL (8.6-10.8); Carbon Dioxide 30 mEq/L (19-29); Chloride 99 mEq/L (98-109); Glucose 173 mg/dL (70-99); Osmolality,Calculated 305 (280-300); Potassium 3.2 mEq/L (3.5-4.5); Sodium 141 mEq/L (136-145); eGFR For African Americans > 60 (> 60); eGFR For Non-African Americans > 60 (> 60)
--- NOTE | 2016-10-26 08:17 | Electrocardiograph Report ---
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
[2016-10-26] MEDS: clonazePAM 1 MG TABLET PO SCH ×2 (08:44→21:28)
[2016-10-26] MEDS: Magnesium Oxide 400 MG TABLET PO SCH ×2 (08:44→21:28)
[2016-10-26] MEDS: cloNIDine HCl 0.1 MG TABLET PO SCH ×4 (08:44→21:28)
[2016-10-26] MEDS: Aspirin 81 MG TAB.CHEW PO SCH (08:44)
[2016-10-26] MEDS: Levofloxacin 750 MG/150 ML 750 MG/150 ML BAG IVPB SCH (08:45)
[2016-10-26] MEDS: predniSONE 20 MG TABLET PO SCH (08:45)
[2016-10-26] MEDS: Insulin DETEMIR 100 UNIT/ML X5UNITS SQ SCH ×2 (08:45→21:28)
[2016-10-26] MEDS: Insulin LISPRO 300 UNITS/3 ML VIAL SQ SCH ×4 (08:46→21:29)
[2016-10-26] MEDS: *HR* Metoprolol 5 MG/5 ML VIAL IVP SCH (11:46)
--- NOTE | 2016-10-26 17:27 | Internal Med Progress Note ---
Date of Encounter: 10/26/16 Time of Encounter: 09:25 - Assessment and plan (1) Acute on chronic respiratory failure with hypoxemia Current Visit: Yes Status: Acute Assessment and plan: Due to COPD and CHF exacerbation. Improving. Moderate risk for complications. (2) Acute exacerbation of CHF (congestive heart failure) Current Visit: Yes Status: Acute Assessment and plan: We will stop IV Lasix and transition to oral Lasix tomorrow. Qualifiers: Congestive heart failure type: diastolic Qualified Code(s): I50.33 - Acute on chronic diastolic (congestive) heart failure (3) Acute exacerbation of chronic obstructive airways disease Current Visit: Yes Status: Acute Assessment and plan: Continue bronchodilators and O2 supplementation. Stop IV steroids and transition to prednisone. (4) HLD (hyperlipidemia) Current Visit: Yes Status: Chronic Assessment and plan: Continue Zocor Qualifiers: Hyperlipidemia type: pure hypercholesterolemia Qualified Code(s): E78.00 - Pure hypercholesterolemia, unspecified; E78.0 - Pure hypercholesterolemia (5) Sinus tachycardia Current Visit: Yes Status: Chronic Assessment and plan: Improving. Likely due to scheduled bronchodilator use. (6) Tobacco abuse Current Visit: Yes Status: Inactive Assessment and plan: Patient reports that she has quit for 180 days now. (7) Hypertension Current Visit: Yes Status: Chronic Assessment and plan: Blood pressure is well controlled Qualifiers: Hypertension type: essential hypertension Qualified Code(s): I10 - Essential (primary) hypertension - Subjective Interval history: Patient is sitting up in bed. Feels better today. Has responded well to intravenous Lasix and decrease swelling in lower extremities. Shortness of breath is also improving. No wheezing reported at this time. - Constitutional Vitals: Temp Pulse Resp BP Pulse Ox 97.6 F 80 16 118/71 93 10/26/16 14:45 10/26/16 14:45 10/26/16 15:10 10/26/16 14:45 10/26/16 15:10 General appearance: Present: cooperative, mild distress, A&O X 3, pleasant, obese, answers questions appropriately - Neck Neck exam general surgery: Present: supple, trachea midline. Absent: lymphadenopathy - Respiratory Respiratory exam: Present: decreased breath sounds (Bilaterally), prolonged expiratory phase. Absent: accessory muscle use, rales, rhonchi, wheezes - Cardiovascular Cardiovascular exam: Present: RRR, +S1, +S2. Absent: diastolic murmur, gallop, rubs, systolic murmur - GI/Abdominal GI/Abdominal exam: Present: normal bowel sounds, soft, no peritoneal signs. Absent: distended, tenderness - Extremities Exam Extremities exam: Present: warm, radial pulses palpable and symmetrical. Absent : calf tenderness, cyanotic, pedal edema - Neurological Exam Neurological exam: Present: alert, oriented X3, no focal deficits. Absent: facial droop, speech deficit - Skin Skin exam: Present: dry, intact Internal Medicine: Result - Labs CBC & Chem 7: 10/26/16 03:04 10/26/16 03:04 - ABG Interpretation ABG results: PT/INR, D-dimer PT 12.0 Seconds (9.4-12.1) 10/24/16 05:05 Consult Discharge Plan - Plan Referrals: Domitila Lau MD [Non-Partnered Physician] - 10/29/16 1:30 pm
[2016-10-27] MEDS: Ipratropium/Albuterol Neb 3 ML IH SCH ×6 (04:17→23:11)
[2016-10-27] MEDS: *HR* Morphine 2 MG/ML SYRINGE IVP PRN ×5 (04:27→21:36)
[2016-10-27] MEDS: *HR* Heparin 5,000 UNIT/ML VIAL SQ SCH ×3 (04:28→20:46)
[2016-10-27] MEDS: hydrALAZINE 25 MG TABLET PO SCH ×4 (05:58→22:43)
[2016-10-27] MEDS: Ondansetron 4 MG/2 ML VIAL IVP PRN ×2 (07:52→17:25)
[2016-10-27] MEDS: *HR* HYDROcodone/Acet 5/325 mg TABLET PO PRN (07:53)
[2016-10-27] MEDS: cloNIDine HCl 0.1 MG TABLET PO SCH ×4 (07:54→20:45)
[2016-10-27] MEDS: predniSONE 20 MG TABLET PO SCH (07:54)
[2016-10-27] MEDS: Aspirin 81 MG TAB.CHEW PO SCH (07:55)
[2016-10-27] MEDS: clonazePAM 1 MG TABLET PO SCH ×2 (07:55→20:45)
[2016-10-27] MEDS: Levofloxacin 750 MG/150 ML 750 MG/150 ML BAG IVPB SCH (07:55)
[2016-10-27] MEDS: Magnesium Oxide 400 MG TABLET PO SCH ×2 (07:55→20:45)
[2016-10-27] MEDS: Insulin LISPRO 300 UNITS/3 ML VIAL SQ SCH ×3 (07:56→17:19)
[2016-10-27] MEDS: Insulin DETEMIR 100 UNIT/ML X5UNITS SQ SCH ×2 (08:48→20:46)
[2016-10-27] MEDS: *HR* Metoprolol 5 MG/5 ML VIAL IVP SCH (13:44)
[2016-10-27] MEDS ORDERED: Furosemide 40 MG/4 ML VIAL IVP ONE (14:32)
--- NOTE | 2016-10-27 18:03 | Internal Med Progress Note ---
Date of Encounter: 10/27/16 Time of Encounter: 14:00 - Assessment and plan (1) Acute on chronic respiratory failure with hypoxemia Current Visit: Yes Status: Acute Assessment and plan: Continue O2 supplementation. Overall, patient continues to improve although she has intermittent episodes of dyspnea. Her saturations have remained stable. Continue current management. Monitor vital signs. Moderate risk for complications. (2) Acute exacerbation of CHF (congestive heart failure) Current Visit: Yes Status: Acute Assessment and plan: Patient given one dose of intravenous Lasix today due to acute episode of shortness of breath. We will transition to oral Lasix in the morning. Qualifiers: Congestive heart failure type: diastolic Qualified Code(s): I50.33 - Acute on chronic diastolic (congestive) heart failure (3) Acute exacerbation of chronic obstructive airways disease Current Visit: Yes Status: Acute Assessment and plan: Continue bronchodilators. O2 supplementation. On oral prednisone. (4) HLD (hyperlipidemia) Current Visit: Yes Status: Chronic Qualifiers: Hyperlipidemia type: pure hypercholesterolemia Qualified Code(s): E78.00 - Pure hypercholesterolemia, unspecified; E78.0 - Pure hypercholesterolemia (5) Sinus tachycardia Current Visit: Yes Status: Resolved Assessment and plan: On beta samina (6) Hypertension Current Visit: Yes Status: Chronic Assessment and plan: Well-controlled. Qualifiers: Hypertension type: essential hypertension Qualified Code(s): I10 - Essential (primary) hypertension - Subjective Interval history: Patient had an episode of shortness of breath last night and required bronchodilators emergently. She responded to that treatment well. She has since been doing well. However this afternoon, I was called as patient began to complain of increased lower extremity swelling requesting IV Lasix. She was however saturating well at 94% on 3 L which is her baseline home oxygen. - Constitutional Vitals: Temp Pulse Resp BP Pulse Ox 98.8 F 83 18 138/83 95 10/27/16 15:20 10/27/16 15:20 10/27/16 16:07 10/27/16 15:20 10/27/16 16:07 General appearance: Present: cooperative, mild distress, A&O X 3, pleasant, obese, answers questions appropriately - Neck Neck exam general surgery: Present: supple, trachea midline. Absent: lymphadenopathy - Respiratory Respiratory exam: Present: prolonged expiratory phase, wheezes. Absent: accessory muscle use, rales, rhonchi - Cardiovascular Cardiovascular exam: Present: RRR, +S1, +S2. Absent: diastolic murmur, gallop, rubs, systolic murmur - GI/Abdominal GI/Abdominal exam: Present: normal bowel sounds, soft, no peritoneal signs. Absent: distended, tenderness - Extremities Exam Extremities exam: Present: pedal edema, warm, radial pulses palpable and symmetrical. Absent: calf tenderness, cyanotic Internal Medicine: Result - Labs CBC & Chem 7: 10/26/16 03:04 10/26/16 03:04 - ABG Interpretation ABG results: PT/INR, D-dimer PT 12.0 Seconds (9.4-12.1) 10/24/16 05:05 Consult Discharge Plan - Plan Referrals: Domitila Lau MD [Non-Partnered Physician] - 10/29/16 1:30 pm
[2016-10-27] MEDS ORDERED: Insulin LISPRO 300 UNITS/3 ML VIAL SQ SCH ×2 (18:07→21:00)
[2016-10-28] MEDS: Ondansetron 4 MG/2 ML VIAL IVP PRN (02:53)
[2016-10-28] MEDS: *HR* Morphine 2 MG/ML SYRINGE IVP PRN ×2 (02:53→08:02)
[2016-10-28] MEDS: Ipratropium/Albuterol Neb 3 ML IH SCH ×3 (03:38→10:59)
[2016-10-28] MEDS: hydrALAZINE 25 MG TABLET PO SCH (05:36)
[2016-10-28] MEDS: *HR* Heparin 5,000 UNIT/ML VIAL SQ SCH (05:36)
[2016-10-28] MEDS: *HR* HYDROcodone/Acet 5/325 mg TABLET PO PRN (05:36)
[2016-10-28 06:41] VITALS: BP 146/86
[2016-10-28] MEDS: Levofloxacin 750 MG/150 ML 750 MG/150 ML BAG IVPB SCH (07:57)
[2016-10-28] MEDS: clonazePAM 1 MG TABLET PO SCH (07:58)
[2016-10-28] MEDS: Magnesium Oxide 400 MG TABLET PO SCH (07:58)
[2016-10-28] MEDS: cloNIDine HCl 0.1 MG TABLET PO SCH (07:58)
[2016-10-28] MEDS: predniSONE 20 MG TABLET PO SCH (07:58)
[2016-10-28] MEDS: Aspirin 81 MG TAB.CHEW PO SCH (07:59)
[2016-10-28] MEDS: Insulin DETEMIR 100 UNIT/ML X5UNITS SQ SCH (08:02)
[2016-10-28] MEDS ORDERED: Furosemide 40 MG TABLET PO SCH (09:00)
[2016-10-28] MEDS ORDERED: predniSONE 20 MG TABLET PO SCH (09:00)
[2016-10-28] MEDS ORDERED: levoFLOXacin 750 MG TABLET PO SCH (09:00)
--- NOTE | 2016-10-28 10:10 | Discharge Summary ---
Date of Encounter: 10/28/16 Time of Encounter: 10:03 - Discharge Diagnosis (1) Acute on chronic respiratory failure with hypoxemia Priority: Primary Status: Acute (2) Acute exacerbation of CHF (congestive heart failure) Priority: Secondary Status: Acute Qualifiers: Congestive heart failure type: diastolic Qualified Code(s): I50.33 - Acute on chronic diastolic (congestive) heart failure (3) Acute exacerbation of chronic obstructive airways disease Priority: Secondary Status: Acute (4) HLD (hyperlipidemia) Priority: Secondary Status: Chronic Qualifiers: Hyperlipidemia type: pure hypercholesterolemia Qualified Code(s): E78.00 - Pure hypercholesterolemia, unspecified; E78.0 - Pure hypercholesterolemia (5) Sinus tachycardia Priority: Secondary Status: Resolved (6) Hypertension Priority: Secondary Status: Chronic Qualifiers: Hypertension type: essential hypertension Qualified Code(s): I10 - Essential (primary) hypertension - Discharge Medications Prescriptions: Furosemide [Lasix] 40 mg PO DAILY #30 tab Metoprolol [Lopressor] 25 mg PO BID #60 tab Potassium Chloride [K-Tab ER] 10 meq PO DAILY #30 tablet.er predniSONE [PredniSONE] 10 mg PO DAILY 6 Days Simvastatin [Zocor] 40 mg PO HS #30 tab Home Medications: Pantoprazole Sodium [Protonix] 40 mg PO DAILY 02/10/15 [History] Ipratropium/Albuterol Neb [Duoneb] 3 ml IH Q6HR PRN #90 vial.neb 05/02/16 [Rx] cloNIDine HCl [Clonidine HCl] 0.3 mg PO QID 05/16/16 [History] Aspirin 81 mg PO DAILY 07/19/16 [History] Oxygen 3 l .ROUTE AD 07/19/16 [History] Ranitidine HCl [Zantac] 150 mg PO DAILY 07/19/16 [History] clonazePAM [Klonopin] 1 mg PO BID 07/31/16 [History] Insulin Glargine [Lantus] 33 unit SQ HS 08/10/16 [History] Insulin LISPRO [HumaLOG] 0 - 10 units SQ TIDWM 08/10/16 [History] Roflumilast [Daliresp] 500 mcg PO DAILY 08/10/16 [History] Meclizine [Antivert] 25 mg PO TID PRN 09/19/16 [History] Sucralfate [Carafate] 1 gm PO QIDAC #120 tab 09/22/16 [Rx] amLODIPine [Norvasc] 5 mg PO HS #30 tab 09/30/16 [Rx] Albuterol Sulfate [Ventolin Hfa] 2 puff IH Q4H PRN #1 inh 10/15/16 [Rx] Budesonide/Formoterol 160/4.5 [Symbicort 160/4.5] 2 puff IH BIDR #1 inh [Rx] OxyCODONE Immed Rel [Roxicodone 5 MG] 5 mg PO Q8HR PRN 10/24/16 [History] Furosemide [Lasix] 40 mg PO DAILY #30 tab 10/28/16 [Rx] Metoprolol [Lopressor] 25 mg PO BID #60 tab 10/28/16 [Rx] Potassium Chloride [K-Tab ER] 10 meq PO DAILY #30 tablet.er 10/28/16 [Rx] Simvastatin [Zocor] 40 mg PO HS #30 tab 10/28/16 [Rx] predniSONE [PredniSONE] 10 mg PO DAILY 6 Days 10/28/16 [Rx] Allergies/Adverse Reactions: 3 Allergy/AdvReac Type Severity Reaction Status Date / Time NSAIDS (Non-Steroidal Allergy Unknown See Verified 10/11/16 14:14 Anti-Inflamma Comments Penicillins Allergy Unknown Hives Verified 10/11/16 14:14 lisinopril AdvReac Cough Verified 10/11/16 14:14 tramadol AdvReac Nausea Verified 10/11/16 14:14 Date of admission: 10/26/16 12:45 Primary care physician: PCP NONE Discharging clinician: Chano Aparicio Anticipated date of discharge: 10/28/16 - Patient Status Disposition: Home, Self-Care Condition: Fair Functional capacity at discharge: independent ambulation Overall status at discharge: patient is progressing back to baseline - Discharge Instructions Instructions: Chronic Obstructive Pulmonary Disease (DC), Diabetes Mellitus Type 2 in Adults (DC), Heart Failure (DC) Follow Up With: Domitila Lau MD [Non-Partnered Physician] - 10/29/16 1:30 pm Additional Instructions: Follow-up with cardiology in 1 week for congestive heart failure - Diet and Activity Activity: as per physical therapy Diet: low fat, low cholesterol, low salt diet Hospital course: Ms. Ren is a 56 year old female - Time Spent with Patient Total time spent providing and/or coordinating discharge services: Greater than 30 minutes (45 min) - Constitutional Vitals: Temp Pulse Resp BP Pulse Ox 97.5 F L 64 16 146/86 95 10/28/16 06:37 10/28/16 06:37 10/28/16 07:46 10/28/16 06:37 10/28/16 08:17 General appearance: Present: cooperative, mild distress, A&O X 3, pleasant, obese, answers questions appropriately - Neck Neck exam general surgery: Present: supple, trachea midline. Absent: lymphadenopathy - Respiratory Respiratory exam: Present: prolonged expiratory phase, wheezes. Absent: accessory muscle use, rales, rhonchi - Cardiovascular Cardiovascular exam: Present: RRR, +S1, +S2. Absent: diastolic murmur, gallop, rubs, systolic murmur - GI/Abdominal GI/Abdominal exam: Present: normal bowel sounds, soft, no peritoneal signs. Absent: distended, tenderness - Extremities Exam Extremities exam: Present: warm, radial pulses palpable and symmetrical. Absent : calf tenderness, cyanotic, pedal edema - Neurological Exam Neurological exam: Present: alert, oriented X3, no focal deficits. Absent: facial droop, speech deficit
== END 2016-10-28 11:00 | disposition home or self-care (01) | DRG 291 ==
LOC: 3BNU 19:25 → EMEROO 19:25 → SUATTDRO 21:14 → 3BNU 22:09
PROVIDERS: ADMIT Internal Medicine; ATTEND Internal Medicine

== ENCOUNTER 2016-11-07 03:42 | Inpatient (IN) ==
[2016-11-07] MEDS ORDERED: *HR* HYDROmorphone (PF) 1 MG/ML SYRINGE IVP ONE (04:13)
[2016-11-07] MEDS ORDERED: Ondansetron 4 MG/2 ML VIAL IVP ONE (04:13)
[2016-11-07] MEDS ORDERED: GI Cocktail 40 ML EACH PO ONE (04:15)
[2016-11-07 05:03] LABS: Hematocrit 41.1 % (35.3-44.9); Hemoglobin 12.3 g/dL (11.5-15.4); Mean Corpuscular HGB Conc 29.9 g/dL (31.6-35.5); Mean Corpuscular Hemoglobin 26.9 pg (28.0-33.3); Mean Corpuscular Volume 89.9 fL (83.0-100.0); Mean Platelet Volume 10.5 fL (9.4-12.4); Nucleated Red Blood Cells 1.1 /100 WBC (0); Platelet Count 444 K/mcL (140-400); Red Blood Count 4.57 M/mcL (3.82-4.97); Red Cell Distribution Width 14.9 % (11.5-14.5)
[2016-11-07 05:22] LABS: Alanine Aminotransferase 16 Units/L (0-55); Albumin 3.2 g/dL (3.5-5.0); Alkaline Phosphatase 122 Units/L (38-126); Aspartate Amino Transferase 12 Units/L (5-34); BUN/Creatinine Ratio 26 (6-26); Bilirubin,Indirect 0.1 mg/dL (0.0-1.2); Bilirubin,Total 0.2 mg/dL (0.2-1.2); Blood Urea Nitrogen 25 mg/dL (7-20); Calcium 8.8 mg/dL (8.6-10.8); Carbon Dioxide 27 mEq/L (19-29); Chloride 103 mEq/L (98-109); Globulin 3.2 g/dL (2.4-3.5); Glucose 194 mg/dL (70-99); Lipase 33 Units/L (8-78); Osmolality,Calculated 306 (280-300); Potassium 3.6 mEq/L (3.5-4.5); Sodium 143 mEq/L (136-145); Total Protein 6.4 g/dL (6.0-8.3); eGFR For African Americans > 60 (> 60); eGFR For Non-African Americans 58 (> 60)
[2016-11-07 05:24] LABS: Eosinophils # 0.2 K/mcL (0.0-0.6); Lymphocytes # 1.9 K/mcL (0.6-4.6); Monocytes # 1.2 K/mcL (0.0-1.3); Platelet Estimate Normal (Normal)
[2016-11-07 05:25] LABS: Bilirubin,Direct < 0.1 mg/dL (0.0-0.5); Large Platelets Present (Not Present); Macrocytosis Present (Not Present)
[2016-11-07] MEDS ORDERED: 0.9 % Sodium Chloride 1,000 ML IVC ONE (05:49)
[2016-11-07] MEDS ORDERED: Levofloxacin 500 MG/100 ML 500 MG/100 ML BAG IVPB ONE (05:49)
--- NOTE | 2016-11-07 06:04 | Emergency Department Note ---
Disposition Clinical Impression: Bandemia, Sinus tachycardia UTI (urinary tract infection) Qualifiers: Urinary tract infection type: acute cystitis Hematuria presence: without hematuria Qualified Code(s): N30.00 - Acute cystitis without hematuria Disposition: Admitted As Inpatient Referrals: Jasper Pat DO [Primary Care Provider] - Forms: Work/School Release, ED Satisfaction Letter General Adult HPI - General Chief complaint: ED Abdominal Pain Stated complaint: abdominal pain Time Seen by Provider: 11/07/16 03:48 Source: patient, family Limitations: no limitations Nursing Notes Reviewed: Yes Vital Signs Reviewed: Yes - History of Present Illness HPI Narrative: 56-year-old female who reports she has had weeks of intermittent epigastric pain. She was seen in the emergency department yesterday and received a CT scan and lab work. CT scan was unremarkable. Lab work shows a mild leukocytosis and a urinary tract infection. She reports since then she has had some nausea and vomiting and no improvement in her abdominal pain. She has not had any blood in her stool. She has had increased urinary frequency. Past medical history of congestive heart failure, hyperlipidemia, sinus tachycardia and hypertension. She currently takes Lasix, Lopressor, statin, clonidine, aspirin, insulin, amlodipine. She states that the pain is usually in her epigastrium which is where it is right now. Radiation: non-radiation Pain Severity: severe Pain Scale: 9 Consistency: constant Improves with: nothing Worsens with: nothing Associated symptoms: Reports: denies other symptoms - Related Data Home Medications Medication Instructions Recorded Confirmed Pantoprazole Sodium [Protonix] 40 mg PO DAILY 02/10/15 10/24/16 cloNIDine HCl [Clonidine HCl] 0.3 mg PO QID 05/16/16 10/24/16 Aspirin 81 mg PO DAILY 07/19/16 10/24/16 Oxygen 3 l .ROUTE AD 07/19/16 10/24/16 Ranitidine HCl [Zantac] 150 mg PO DAILY 07/19/16 10/24/16 clonazePAM [Klonopin] 1 mg PO BID 07/31/16 10/24/16 Insulin Glargine [Lantus] 33 unit SQ HS 08/10/16 10/24/16 Insulin LISPRO [HumaLOG] 0 - 10 units SQ TIDWM 08/10/16 10/24/16 Roflumilast [Daliresp] 500 mcg PO DAILY 08/10/16 10/24/16 Meclizine [Antivert] 25 mg PO TID PRN 09/19/16 10/24/16 OxyCODONE Immed Rel [Roxicodone 5 5 mg PO Q8HR PRN 10/24/16 10/24/16 MG] Previous Rx's Medication Instructions Recorded Ipratropium/Albuterol Neb [Duoneb] 3 ml IH Q6HR PRN #90 vial.neb 05/02/16 Sucralfate [Carafate] 1 gm PO QIDAC #120 tab 09/22/16 amLODIPine [Norvasc] 5 mg PO HS #30 tab 09/30/16 Albuterol Sulfate [Ventolin Hfa] 2 puff IH Q4H PRN #1 inh 10/15/16 Budesonide/Formoterol 160/4.5 2 puff IH BIDR #1 inh 10/15/16 [Symbicort 160/4.5] Furosemide [Lasix] 40 mg PO DAILY #30 tab 10/28/16 Metoprolol [Lopressor] 25 mg PO BID #60 tab 10/28/16 Potassium Chloride [K-Tab ER] 10 meq PO DAILY #30 tablet.er 10/28/16 Simvastatin [Zocor] 40 mg PO HS #30 tab 10/28/16 predniSONE [PredniSONE] 10 mg PO DAILY 6 Days 10/28/16 Dicyclomine [Bentyl] 10 mg PO QID #28 capsule 11/06/16 Mag Hydrox/Al Hydrox/Simeth 30 ml PO TID #21 udc 11/06/16 [Maalox] Promethazine [Phenergan] 25 mg PO Q6HR #28 tablet 11/06/16 Sulfamethoxazole/Trimeth DS 1 each PO BID #6 tablet 11/06/16 [Bactrim DS] Allergies Allergy/AdvReac Type Severity Reaction Status Date / Time NSAIDS (Non-Steroidal Allergy Unknown See Verified 11/06/16 02:32 Anti-Inflamma Comments Penicillins Allergy Unknown Hives Verified 11/06/16 02:32 lisinopril AdvReac Cough Verified 11/06/16 02:32 tramadol AdvReac Nausea Verified 11/06/16 02:32 All systems ED: reviewed and negative except as stated. Constitutional: Denies: fever ENT ED: Denies: throat pain Cardiovascular: Denies: chest pain Respiratory: Denies: cough Gastrointestinal: Reports: abdominal pain, nausea, vomiting. Denies: diarrhea Genitourinary: Reports: frequency Integumentary: Denies: rash Neurological: Denies: headache Past Medical History - Past Medical History Medical history: Reports: asthma, COPD, diabetes, GERD, hyperlipidemia, hypertension Surgical history: Reports: appendectomy, cholecystectomy, knee replacement, other Psychiatric history: Reports: anxiety [employer] history: Reports: ectopic , other - Social History Smoking Status: Former smoker Smokeless Tobacco Status: No Alcohol use: Reports: none Drug use: Reports: none Physical Exam - General Limitations: no limitations General appearance: alert - Head Head exam: atraumatic - Eye Eye exam: Present: normal appearance - ENT ENT exam: normal exam, normal oropharynx - Neck Neck exam: Present: normal inspection - Chest Chest inspection: Present: normal inspection - Respiratory Respiratory exam: Absent: respiratory distress - Cardiovascular Cardiovascular exam: Present: normal rhythm, tachycardia - Abdominal Exam Abdominal exam: Present: soft, tenderness (In epigastrium. No pain on palpation of the lateral aspects of the abdomen.) - Extremities Exam Extremities exam: Present: normal inspection - Back Exam Back exam: Present: normal inspection - Neurological Exam Neurological exam: Present: alert, oriented X3 - Skin Skin exam: Present: warm, dry Course Course Narrative: She is tachycardic on presentation but is not hypotensive. In looking through her history she has had times of normal heart rate and also times a tachycardia. She also does carry the diagnosis of sinus tachycardia from recent admission. The epigastric abdominal pain seems to be worsening and she was just seen in the emergency department yesterday and received a full abdominal pain lab workup and a CT scan of the abdomen. She had a mild leukocytosis and urinary tract infection and she was discharged home with antibiotics. She returned again due to no improvement of the pain. She appears to be a little more tachycardic and her overall white count has decreased but her bands have increased. He was I am concerned that she has an untreated infection likely a urinary source. I gone ahead and ordered IV antibiotics of Levaquin as she is a allergic to penicillins. On exam she has a nonsurgical abdomen and is point tender in the epigastrium. Her EKG shows sinus tachycardia. Mild lateral ST depression but this is present in prior EKGs. She is not hypoxic and is on her home O2 settings. She also has not dyspneic. Will admit for bandemia, UTI, and sinus tachycardia. Vital Signs Temperature 97.8 F 11/07/16 03:43 Pulse Rate 139 11/07/16 03:43 Respiratory Rate 16 11/07/16 03:43 Blood Pressure 165/124 11/07/16 03:43 O2 Sat by Pulse Oximetry 88 11/07/16 03:43 Temperature 97.8 F 11/07/16 03:43 Pulse Rate 147 11/07/16 06:00 Respiratory Rate 16 11/07/16 03:43 Blood Pressure 164/122 11/07/16 06:00 O2 Sat by Pulse Oximetry 96 11/07/16 06:00 Oxygen Delivery Oxygen Delivery Nasal Cannula Medical Decision Making - Medical Records Medical records reviewed: Yes I reviewed the patient's medical records. - Lab Data Lab results reviewed: Yes I reviewed the patient's lab results. Result diagrams: 11/07/16 04:56 11/07/16 04:56 Lab Results 11/07/16 11/07/16 11/07/16 Range/Units 04:56 04:56 04:56 WBC 11.7 H (4.3-11.1) K/mcL RBC 4.57 (3.82-4.97) M/mcL Hgb 12.3 (11.5-15.4) g/dL Hct 41.1 (35.3-44.9) % MCV 89.9 (83.0-100.0) fL MCH 26.9 L (28.0-33.3) pg MCHC 29.9 L (31.6-35.5) g/dL RDW 14.9 H (11.5-14.5) % Plt Count 444 H (140-400) K/mcL MPV 10.5 (9.4-12.4) fL Seg Neutrophils % 62.0 % Band Neutrophils % 6.0 H (0-4) % Lymphocytes % 16.0 % Monocytes % 10.0 % Eosinophils % 2.0 % Myelocytes % 4.0 H (0) % Neutrophils # 8.0 (1.6-8.9) K/mcL Lymphocytes # 1.9 (0.6-4.6) K/mcL Monocytes # 1.2 (0.0-1.3) K/mcL Eosinophils # 0.2 (0.0-0.6) K/mcL Nucleated RBCs/100 WBC 1.1 H (0) /100 WBC Platelet Estimate Normal (Normal) Large Platelets Present A (Not Present) Macrocytosis Present A (Not Present) Sodium 143 (136-145) mEq/L Potassium 3.6 (3.5-4.5) mEq/L Chloride 103 (98-109) mEq/L Carbon Dioxide 27 (19-29) mEq/L BUN 25 H (7-20) mg/dL Creatinine 0.98 (0.57-1.11) mg/dL Est GFR ( Amer) > 60 (> 60) Est GFR (Non-Af Amer) 58 L (> 60) BUN/Creatinine Ratio 26 (6-26) Glucose 194 H (70-99) mg/dL Calculated Osmolality 306 H (280-300) Lactic Acid (0.5-2.2) mmol/L Calcium 8.8 (8.6-10.8) mg/dL Total Bilirubin 0.2 (0.2-1.2) mg/dL Direct Bilirubin < 0.1 (0.0-0.5) mg/dL Indirect Bilirubin 0.1 (0.0-1.2) mg/dL AST 12 (5-34) Units/L ALT 16 (0-55) Units/L Alkaline Phosphatase 122 (38-126) Units/L Troponin I 0.02 (0-0.03) ng/mL Serum Total Protein 6.4 (6.0-8.3) g/dL Albumin 3.2 L (3.5-5.0) g/dL Globulin 3.2 (2.4-3.5) g/dL Albumin/Globulin Ratio 1.0 L (1.1-2.2) Lipase 33 (8-78) Units/L 11/07/16 Range/Units 06:26 WBC (4.3-11.1) K/mcL RBC (3.82-4.97) M/mcL Hgb (11.5-15.4) g/dL Hct (35.3-44.9) % MCV (83.0-100.0) fL MCH (28.0-33.3) pg MCHC (31.6-35.5) g/dL RDW (11.5-14.5) % Plt Count (140-400) K/mcL MPV (9.4-12.4) fL Seg Neutrophils % % Band Neutrophils % (0-4) % Lymphocytes % % Monocytes % % Eosinophils % % Myelocytes % (0) % Neutrophils # (1.6-8.9) K/mcL Lymphocytes # (0.6-4.6) K/mcL Monocytes # (0.0-1.3) K/mcL Eosinophils # (0.0-0.6) K/mcL Nucleated RBCs/100 WBC (0) /100 WBC Platelet Estimate (Normal) Large Platelets (Not Present) Macrocytosis (Not Present) Sodium (136-145) mEq/L Potassium (3.5-4.5) mEq/L Chloride (98-109) mEq/L Carbon Dioxide (19-29) mEq/L BUN (7-20) mg/dL Creatinine (0.57-1.11) mg/dL Est GFR ( Amer) (> 60) Est GFR (Non-Af Amer) (> 60) BUN/Creatinine Ratio (6-26) Glucose (70-99) mg/dL Calculated Osmolality (280-300) Lactic Acid 1.5 (0.5-2.2) mmol/L Calcium (8.6-10.8) mg/dL Total Bilirubin (0.2-1.2) mg/dL Direct Bilirubin (0.0-0.5) mg/dL Indirect Bilirubin (0.0-1.2) mg/dL AST (5-34) Units/L ALT (0-55) Units/L Alkaline Phosphatase (38-126) Units/L Troponin I (0-0.03) ng/mL Serum Total Protein (6.0-8.3) g/dL Albumin (3.5-5.0) g/dL Globulin (2.4-3.5) g/dL Albumin/Globulin Ratio (1.1-2.2) Lipase (8-78) Units/L - Radiology Data Radiology results reviewed: Yes I reviewed the patient's radiology results. - EKG Data EKG #1 EKG attestation: Yes I reviewed and interpreted this EKG. EKG shows normal: sinus rhythm Rate: tachycardia Rhythm: NSR [place]/QRS: normal When compared to previous EKG there are: no significant changes Interpretation: other (Sinus tachycardia) Attestation Statement - Attestation Attestation: I, Robert Hyde MD, personally evaluated this patient and discussed their management with the resident physician. I reviewed the resident's note and agree with the documented findings, medical decision making, and plan of care. 56-year-old female presents to the emergency department complaining of persistent epigastric abdominal pain associated with nausea and vomiting. Patient was seen here 24 hours ago for the same complaints and had a complete workup including a CT scan of the abdomen and pelvis. She was diagnosed with UTI. Presents now complaining of continued severe epigastric pain. On examination patient is a well-developed well-nourished female in no acute distress. She is alert and oriented 3. There is no cyanosis or diaphoresis. Breath sounds are equal bilaterally with scattered bilateral expiratory wheezes. Heart regular and tachycardic. Abdomen soft with present bowel sounds. Moderate epigastric tenderness. Labs reviewed. WBC 11.7. Bands 6%. The hospitalist, Dr. Omer, was consulted and accepted admission of the patient.
[2016-11-07] MEDS ORDERED: *HR* Metoprolol 5 MG/5 ML VIAL IVP ONE (06:43)
[2016-11-07] MEDS ORDERED: Promethazine 25 MG in 0.9 % Sodium Chloride 50 ML IVPB ONE (07:19)
[2016-11-07] MEDS ORDERED: Naloxone 0.4 MG/ML INJ IVP PRN (08:32)
[2016-11-07] MEDS ORDERED: Ipratropium/Albuterol Neb 3 ML IH PRN (08:34)
[2016-11-07] MEDS ORDERED: D5% in Water 1,000 ML IVC PRN (08:39)
[2016-11-07] MEDS ORDERED: *HR* Dextrose 50 % in Water (Syg) 50 ML SYRINGE IVP PRN (08:39)
[2016-11-07] MEDS ORDERED: Dextrose Gel 15 GM PO PRN ×2 (08:39)
[2016-11-07] MEDS ORDERED: NON-FORMULARY MEDICATION 1 EACH EACH (Oxygen [Oxygen] 3 L) SCH (08:45)
--- NOTE | 2016-11-07 08:47 | Internal Med History&Physical ---
Date of Encounter: 11/07/16 Time of Encounter: 08:00 Assessment and Plan (1) Epigastric pain Current visit: Yes Status: Acute I suspect this is from recurrent peptic ulcer disease. Last EGD was [address] will place her on Protonix 40 mg IV twice a day. Gastroenterology for consideration of EGD. I will temporarily hold her steroids as this is low dose. We will also hold aspirin. Nothing by mouth at midnight for possible EGD in the morning. He is not showing any signs of active bleeding. (2) Hypertension Current visit: No Status: Chronic Blood pressure elevated. Continue home medications. May be elevated in part secondary to pain. Monitor. Qualifiers: Hypertension type: essential hypertension Qualified Code(s): I10 - Essential (primary) hypertension (3) Diabetes mellitus Current visit: No Status: Chronic Basal bolus insulin ordered. 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 No evidence of acute exacerbation. I will add incentive spirometry as she is at risk for hypoventilation due to abdominal pain. Continue bronchodilators. Qualifiers: COPD type: unspecified COPD Qualified Code(s): J44.9 - Chronic obstructive pulmonary disease, unspecified (5) Renal artery stenosis Current visit: Yes Status: Acute Status post stenting (6) Abdominal aortic aneurysm Current visit: Yes Status: Acute It has grown in size over the last several years from 2.2 cm in 2011-3.0 today. Will need outpatient vascular surgery referral, and improved control of her blood pressure. Qualifiers: Presence of rupture: without rupture Qualified Code(s): I71.4 - Abdominal aortic aneurysm, without rupture (7) Asymptomatic bacteriuria Current visit: Yes Status: Acute Patient was started on Levaquin for UTI. Patient does not have a urinary tract infection. DC Levaquin. Internal Medicine - H&P: HPI Admitted From: Emergency Dept Plans for Post Hospital Care: Home History of present illness: Ms. Ren is a 56 year old female with a past medical history of peptic ulcer disease stating she had her last EGD 4 years ago. She also has a history of obesity, chronic respiratory failure secondary to COPD for which she is on 3 L of oxygen at home, hypertension, abdominal aortic aneurysm, renal artery stenosis status post stenting, and insulin-dependent diabetes mellitus patient was seen in the emergency room one day prior to admission for abdominal pain at which time a CAT scan showed no acute process. She was felt to have a urinary tract infection and started on Levaquin. Patient has no urinary complaints. Patient does complain of epigastric pain "exactly like my peptic ulcer disease pain" area she has had this pain for about a week described as aching in her epigastrium, upwards of 10 out of 10 in severity. She has had some nausea, vomited twice yesterday. She denies any fevers or chills. No diarrhea. No blood in her stool but states that her outpatient doctor said her stool was positive for blood in the last month. No chest pain or shortness of breath other than her chronic COPD shortness of breath. No recent illnesses. She is on prednisone 10 mg by mouth daily chronically, as well as baby aspirin. She denies any use of NSAIDs. She is not a drinker. She quit smoking many years ago. In the emergency department her vitals were stable with the exception of an elevated blood pressure of 175/103. She was afebrile. White count 11.7. Electrolytes were normal BUN/creatinine of 25 over 0.98. Chest x-ray showed no acute process. She had a urinalysis which showed 5-15 white blood cells and bacteria, but this was a cloudy concentrated specimen, with numerous epithelial cells. Past Med Surg Social Fam HX - Past Medical History Medical history: asthma, COPD, diabetes, GERD, hyperlipidemia, hypertension Psychiatric history: anxiety - Past Surgical History Surgical History: appendectomy, cholecystectomy, knee replacement, other - Social History Smoking Status: Former smoker Smokeless Tobacco Status: No Alcohol use: none Drug use: none Occupational status: employed Current living situation: Home Activity Level: Independent ambulation Recent Out of Country Travel Within the Last 8 Weeks: No Exposure or Possible Exposure to Illness During Travel: No - Family History Father Family Member Ethnicity: Non- Living Status: Hx Family Cardiac Disorders: Yes (Atheroslcerosis) Mother Family Member Ethnicity: Non- Living Status: Still Living Hx Family Cardiac Disorders: Yes (HTN) Hx Family Respiratory Disorders: No Hx Family Cancer: No Hx Family GI Disorders: No Hx Family Endocrine Disorder: Yes (DM) Hx Family Neuromuscular Disorders: No Hx Family Neurologic Disorders: No Hx Family HEENT Disorders: No Hx Family Autoimmune Disorders: No - Additional Family History Additional family history: Family history reviewed and non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 Internal Medicine - H&P: Meds Pantoprazole Sodium [Protonix] 40 mg PO DAILY 02/10/15 [History] Ipratropium/Albuterol Neb [Duoneb] 3 ml IH Q6HR PRN #90 vial.neb 05/02/16 [Rx] cloNIDine HCl [Clonidine HCl] 0.3 mg PO QID 05/16/16 [History] Aspirin 81 mg PO DAILY 07/19/16 [History] Oxygen 3 l .ROUTE AD 07/19/16 [History] Ranitidine HCl [Zantac] 150 mg PO DAILY 07/19/16 [History] clonazePAM [Klonopin] 1 mg PO BID 07/31/16 [History] Insulin Glargine [Lantus] 35 unit SQ HS 08/10/16 [History] Insulin LISPRO [HumaLOG] 0 - 10 units SQ TIDWM 08/10/16 [History] Roflumilast [Daliresp] 500 mcg PO DAILY 08/10/16 [History] Meclizine [Antivert] 25 mg PO TID PRN 09/19/16 [History] Sucralfate [Carafate] 1 gm PO QIDAC #120 tab 09/22/16 [Rx] amLODIPine [Norvasc] 5 mg PO HS #30 tab 09/30/16 [Rx] Albuterol Sulfate [Ventolin Hfa] 2 puff IH Q4H PRN #1 inh 10/15/16 [Rx] Budesonide/Formoterol 160/4.5 [Symbicort 160/4.5] 2 puff IH BIDR #1 inh [Rx] OxyCODONE Immed Rel [Roxicodone 5 MG] 5 mg PO Q8HR PRN 10/24/16 [History] Furosemide [Lasix] 40 mg PO DAILY #30 tab 10/28/16 [Rx] Metoprolol [Lopressor] 25 mg PO BID #60 tab 10/28/16 [Rx] Potassium Chloride [K-Tab ER] 10 meq PO DAILY #30 tablet.er 10/28/16 [Rx] Simvastatin [Zocor] 40 mg PO HS #30 tab 10/28/16 [Rx] predniSONE [PredniSONE] 10 mg PO DAILY 6 Days 10/28/16 [Rx] Dicyclomine [Bentyl] 10 mg PO QID #28 capsule 11/06/16 [Rx] Mag Hydrox/Al Hydrox/Simeth [Maalox] 30 ml PO TID #21 udc 11/06/16 [Rx] Promethazine [Phenergan] 25 mg PO Q6HR #28 tablet 11/06/16 [Rx] Sulfamethoxazole/Trimeth DS [Bactrim DS] 1 each PO BID #6 tablet 11/06/16 [Rx] 3 Allergy/AdvReac Type Severity Reaction Status Date / Time NSAIDS (Non-Steroidal Allergy Unknown See Verified 11/06/16 02:32 Anti-Inflamma Comments Penicillins Allergy Unknown Hives Verified 11/06/16 02:32 lisinopril AdvReac Cough Verified 11/06/16 02:32 tramadol AdvReac Nausea Verified 11/06/16 02:32 All Systems PM: A 10-system review of systems was performed and is negative for pertinent findings except as documented above in the HPI. - Constitutional Vitals: Temp Pulse Resp BP Pulse Ox 97.7 F 104 17 183/124 98 11/07/16 08:15 11/07/16 08:15 11/07/16 08:15 11/07/16 08:15 11/07/16 08:15 Internal Med - H&P Results - Labs CBC & Chem 7: 11/07/16 04:56 11/07/16 04:56
[2016-11-07] MEDS: 0.9 % Sodium Chloride w KCl 20 MEQ/1,000 ML MLS IVC SCH (10:21)
[2016-11-07] MEDS: cloNIDine HCl 0.1 MG TABLET PO SCH ×3 (10:21→17:56)
[2016-11-07] MEDS: clonazePAM 1 MG TABLET PO SCH ×2 (10:22→21:55)
[2016-11-07] MEDS: *HR* HYDROmorphone (PF) 1 MG/ML SYRINGE IVP PRN ×4 (10:22→21:54)
[2016-11-07] MEDS: Insulin LISPRO 300 UNITS/3 ML VIAL SQ SCH ×3 (10:24→18:00)
[2016-11-07] MEDS: (Roflumilast [Daliresp] 500 MCG) PO SCH (10:29)
[2016-11-07] MEDS: Budesonide/Formoterol 160/4.5 MDI IH SCH ×2 (11:40→19:43)
[2016-11-07] MEDS ORDERED: Insulin LISPRO 300 UNITS/3 ML VIAL SQ SCH (12:00)
[2016-11-07] MEDS: Ondansetron 4 MG/2 ML VIAL IVP PRN ×2 (14:18→17:54)
[2016-11-07] MEDS: Pantoprazole 40 MG VIAL IVP SCH (17:54)
[2016-11-07] MEDS ORDERED: Insulin DETEMIR 100 UNIT/ML X5UNITS SQ SCH (21:00)
[2016-11-08] MEDS: Insulin LISPRO 300 UNITS/3 ML VIAL SQ SCH ×5 (00:48→21:02)
[2016-11-08] MEDS: Insulin DETEMIR 100 UNIT/ML X5UNITS SQ SCH ×2 (00:48→21:01)
[2016-11-08] MEDS: *HR* HYDROmorphone (PF) 1 MG/ML SYRINGE IVP PRN ×6 (01:14→22:19)
[2016-11-08] MEDS: Ondansetron 4 MG/2 ML VIAL IVP PRN ×4 (01:27→22:19)
[2016-11-08] MEDS: 0.9 % Sodium Chloride w KCl 20 MEQ/1,000 ML MLS IVC SCH ×3 (03:25→14:40)
[2016-11-08] MEDS: amLODIPine 5 MG TABLET PO SCH ×2 (03:26→21:01)
[2016-11-08] MEDS: cloNIDine HCl 0.1 MG TABLET PO SCH ×5 (03:26→21:01)
[2016-11-08 04:51] LABS: Hematocrit 33.8 % (35.3-44.9); Hemoglobin 9.8 g/dL (11.5-15.4); Mean Corpuscular Hemoglobin 26.8 pg (28.0-33.3); Mean Corpuscular Volume 92.6 fL (83.0-100.0); Mean Platelet Volume 10.5 fL (9.4-12.4); Nucleated Red Blood Cells 0.5 /100 WBC (0); Platelet Count 309 K/mcL (140-400); Red Blood Count 3.65 M/mcL (3.82-4.97)
[2016-11-08 05:06] LABS: BUN/Creatinine Ratio 34 (6-26); Blood Urea Nitrogen 20 mg/dL (7-20); Calcium 8.3 mg/dL (8.6-10.8); Carbon Dioxide 27 mEq/L (19-29); Chloride 110 mEq/L (98-109); Glucose 73 mg/dL (70-99); Osmolality,Calculated 297 (280-300); Sodium 143 mEq/L (136-145); eGFR For African Americans > 60 (> 60); eGFR For Non-African Americans > 60 (> 60)
[2016-11-08 05:18] LABS: Eosinophils # 0.4 K/mcL (0.0-0.6); Lymphocytes # 2.5 K/mcL (0.6-4.6); Monocytes # 0.5 K/mcL (0.0-1.3); Neutrophils # 5.5 K/mcL (1.6-8.9); Potassium 4.5 mEq/L (3.5-4.5)
[2016-11-08 05:19] LABS: Platelet Estimate Normal (Normal); Polychromasia 1+ (Not Present)
[2016-11-08] MEDS: Pantoprazole 40 MG VIAL IVP SCH ×2 (05:19→17:01)
[2016-11-08 05:21] LABS: Large Platelets Present (Not Present)
[2016-11-08] MEDS: Budesonide/Formoterol 160/4.5 MDI IH SCH ×2 (08:21→20:45)
[2016-11-08] MEDS: clonazePAM 1 MG TABLET PO SCH ×2 (08:58→21:01)
[2016-11-08] MEDS: (Roflumilast [Daliresp] 500 MCG) PO SCH (08:58)
--- NOTE | 2016-11-08 09:45 | Internal Med Progress Note ---
<HumajenniferSoy - Last Filed: 11/08/16 14:25> Date of Encounter: 11/08/16 Time of Encounter: 09:15 - Assessment and plan (1) Epigastric pain Current Visit: Yes Status: Acute Assessment and plan: Pt has hx of PUD. Patient to have EGD today Continue PPI Continue to hold ASA Follow GI recs (2) HTN (hypertension) Current Visit: No Status: Chronic Assessment and plan: Chronic stable. continue home meds. Qualifiers: Hypertension type: essential hypertension Qualified Code(s): I10 - Essential (primary) hypertension (3) COPD (chronic obstructive pulmonary disease) Current Visit: Yes Status: Acute Assessment and plan: Chronic, Stable. Continue home meds continue Incentice spirometry On Home O2 Qualifiers: COPD type: unspecified COPD Qualified Code(s): J44.9 - Chronic obstructive pulmonary disease, unspecified (4) Renal artery stenosis Current Visit: Yes Status: Acute Assessment and plan: Patient is s/p stenting. (5) Abdominal aortic aneurysm Current Visit: Yes Status: Acute Assessment and plan: Chronic Increased in size per latest CT 3.0 cm. Stable. Continue to monitor. Qualifiers: Presence of rupture: without rupture Qualified Code(s): I71.4 - Abdominal aortic aneurysm, without rupture (6) Asymptomatic bacteriuria Current Visit: Yes Status: Acute Assessment and plan: Patient denies urinary symptoms. Agree with plan not to treat. 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 She denies Diarrhea, hematemesis, hematochezia. - Constitutional Vitals: Temp Pulse Resp BP Pulse Ox 98.7 F 94 17 150/74 94 11/08/16 07:34 11/08/16 07:34 11/08/16 07:34 11/08/16 07:34 11/08/16 09:01 General appearance: Present: A&O X 3, morbidly obese, answers questions appropriately - Head Head exam: Present: atraumatic, normocephalic - Eye Eye exam: Present: PERRL, conjuntiva pink, sclera anicteric Pupils: Present: PERRL - Neck Neck exam general surgery: Present: supple, trachea midline - Respiratory Respiratory exam: Present: decreased breath sounds, CTAB. Absent: accessory muscle use, rales, rhonchi, wheezes - Cardiovascular Cardiovascular exam: Present: RRR, +S1, +S2. Absent: diastolic murmur, gallop, rubs, systolic murmur - GI/Abdominal GI/Abdominal exam: Present: distended, normal bowel sounds, soft, tenderness ( epigastric), no peritoneal signs - Extremities Exam Extremities exam: Present: warm. Absent: calf tenderness, cyanotic - Neurological Exam Neurological exam: Present: alert, oriented X3, no focal deficits. Absent: facial droop, speech deficit - Skin Skin exam: Present: dry, intact Internal Medicine: Result - Labs CBC & Chem 7: 11/08/16 04:31 11/08/16 04:31 Labs: Short CBC 11/08/16 Range/Units 04:31 WBC 8.9 (4.3-11.1) K/mcL Hgb 9.8 L D (11.5-15.4) g/dL Hct 33.8 L (35.3-44.9) % Plt Count 309 (140-400) K/mcL Neutrophils # 5.5 (1.6-8.9) K/mcL BMP 11/08/16 04:31 Sodium 143 Potassium 4.5 Chloride 110 H Carbon Dioxide 27 BUN 20 Creatinine 0.58 Glucose 73 Calcium 8.3 L Consult Discharge Plan - Plan Referrals: Jasper Pat DO [Primary Care Provider] - 11/16/16 1:30 pm (web request ) <Delmar Blank - Last Filed: 11/08/16 18:34> Date of Encounter: 11/08/16 - Constitutional Vitals: Temp Pulse Resp BP Pulse Ox 99.2 F 87 18 124/77 97 11/08/16 16:46 11/08/16 16:46 11/08/16 16:46 11/08/16 16:46 11/08/16 16:46 Internal Medicine: Result - Labs CBC & Chem 7: 11/08/16 04:31 11/08/16 04:31 Labs: Short CBC 11/08/16 Range/Units 04:31 WBC 8.9 (4.3-11.1) K/mcL Hgb 9.8 L D (11.5-15.4) g/dL Hct 33.8 L (35.3-44.9) % Plt Count 309 (140-400) K/mcL Neutrophils # 5.5 (1.6-8.9) K/mcL BMP 11/08/16 04:31 Sodium 143 Potassium 4.5 Chloride 110 H Carbon Dioxide 27 BUN 20 Creatinine 0.58 Glucose 73 Calcium 8.3 L - Attending Attestation I examined this patient and my medical decision-making was reviewed with the Resident Physician. I agree with the documented findings, disposition and treatment plan as described except to the extent set forth below.
--- NOTE | 2016-11-08 10:47 | Gastroenterology Consult Note ---
<AlexIfeanyi willett - Last Filed: 11/08/16 11:09> Date of Encounter: 11/08/16 Time of Encounter: 10:43 - Assessment and plan (1) Abdominal pain Current Visit: No Status: Acute Assessment and plan: patient has history of PUD CT abdomen/pelvis from 11/06/16 showed no acute abnormalities, diverticulosis. last EGD [address] Farnsworth, which showed five oozing cratered gastric ulcers with adherent clot found in the prepyloric region of stomach, largest was 3mm. Biopsies were taken. There were many non bleeding superficial duodenal ulcers with pigmented material, found in the first part of the duodenum. gastric biospy was benign mucosa with minimal inflammation. duodenal biopsy showed normal villous pattern with mild nonspecific duodenitis. Plan: continue IV PPI BID NPO EGD today. further recs following EGD. Qualifiers: Abdominal location: epigastric Qualified Code(s): R10.13 - Epigastric pain - Time Spent With Patient Total time spent is greater than 50% in coordination of care (as documented) at patient's floor/unit and/or counseling patient: GI History of Present Illness - Data of Consult Consult date: 11/08/16 Requesting Physician: Delmar Blank MD - Consult Narrative Reason for consult: possible recurrent PUD History of present illness: Ms. Ren is a 56 year old female with PMhx of peptic ulcer disease, asthma, COPD (on 3L home oxygen), GERD, HLD, HTN, AAA, renal artery stenosis. patient was admitted to hospital with chief complaint of epigastric abdominal pain that started 1 week ago. she describes the pain as sharp, 9/10 pain that is constant. no relieving factors. pain is worse with spicy foods. she admits to nausea, with vomiting, and had about three episodes of vomiting the day [facility]. she admits to chest pain, chronic in nature, shortness of breath (also chronic). she denies hematemesis, hematochezia. she admits to dark stools. Her last EGD was about four years ago by Dr. Farnsworth. she denies any NSAID use. Past Med Surg Social Fam HX - Past Medical History Medical history: asthma, COPD, diabetes, GERD, hyperlipidemia, hypertension Psychiatric history: anxiety - Past Surgical History Surgical History: appendectomy, cholecystectomy, knee replacement, other - Social History Smoking Status: Former smoker Smokeless Tobacco Status: No Alcohol use: none Drug use: none - Family History Father Family Member Ethnicity: Non- Living Status: Hx Family Cardiac Disorders: Yes (Atheroslcerosis) Mother Family Member Ethnicity: Non- Living Status: Still Living Hx Family Cardiac Disorders: Yes (HTN) Hx Family Respiratory Disorders: No Hx Family Cancer: No Hx Family GI Disorders: No Hx Family Endocrine Disorder: Yes (DM) Hx Family Neuromuscular Disorders: No Hx Family Neurologic Disorders: No Hx Family HEENT Disorders: No Hx Family Autoimmune Disorders: No All systems PM: reviewed and no additional remarkable complaints except as stated - Constitutional Vitals: Temp Pulse Resp BP Pulse Ox 98.7 F 94 17 150/74 94 11/08/16 07:34 11/08/16 07:34 11/08/16 07:34 11/08/16 07:34 11/08/16 09:01 General appearance: Present: A&O X 3, no acute distress, answers questions appropriately - Head Head exam: Present: atraumatic, normocephalic - Neck Neck exam general surgery: Present: supple, trachea midline - Respiratory Respiratory exam: Present: decreased breath sounds (diffusely) - Cardiovascular Cardiovascular exam: Present: RRR, +S1, +S2 - GI/Abdominal GI/Abdominal exam: Present: distended, normal bowel sounds, soft, tenderness ( epigastric tenderness present. ) - Extremities Exam Extremities exam: Absent: cyanotic, pedal edema - Neurological Exam Neurological exam: Present: alert, oriented X3, no focal deficits Results - Labs CBC & Chem 7: 11/08/16 04:31 11/08/16 04:31 Labs: Last Result Calcium 8.3 mg/dL (8.6-10.8) L 11/08/16 04:31 Troponin I 0.02 ng/mL (0-0.03) 11/07/16 04:56 Entire Visit Hgb 9.8 g/dL (11.5-15.4) L D 11/08/16 04:31 Hct 33.8 % (35.3-44.9) L 11/08/16 04:31 Total Bilirubin 0.2 mg/dL (0.2-1.2) 11/07/16 04:56 AST 12 Units/L (5-34) 11/07/16 04:56 ALT 16 Units/L (0-55) 11/07/16 04:56 Lipase 33 Units/L (8-78) 11/07/16 04:56 Consult Discharge Plan - Plan Referrals: Jasper Pat DO [Primary Care Provider] - 11/16/16 1:30 pm (web request ) <[email or web address] - Last Filed: 11/08/16 18:59> Date of Encounter: 11/08/16 Time of Encounter: 13:00 - Time Spent With Patient Total time spent is greater than 50% in coordination of care (as documented) at patient's floor/unit and/or counseling patient: GI History of Present Illness - Data of Consult Requesting Physician: Delmar Blank MD - Consult Narrative History of present illness: Ms. Ren is a 56 year old female - Constitutional Vitals: Temp Pulse Resp BP Pulse Ox 99.2 F 87 18 124/77 97 11/08/16 16:46 11/08/16 16:46 11/08/16 16:46 11/08/16 16:46 11/08/16 16:46 Results - Labs CBC & Chem 7: 11/08/16 04:31 11/08/16 04:31 Labs: Last Result Calcium 8.3 mg/dL (8.6-10.8) L 11/08/16 04:31 Troponin I 0.02 ng/mL (0-0.03) 11/07/16 04:56 Entire Visit Hgb 9.8 g/dL (11.5-15.4) L D 11/08/16 04:31 Hct 33.8 % (35.3-44.9) L 11/08/16 04:31 Total Bilirubin 0.2 mg/dL (0.2-1.2) 11/07/16 04:56 AST 12 Units/L (5-34) 11/07/16 04:56 ALT 16 Units/L (0-55) 11/07/16 04:56 Lipase 33 Units/L (8-78) 11/07/16 04:56 - Attending Attestation I examined this patient and my medical decision-making was reviewed with the Resident Physician. I agree with the documented findings, disposition and treatment plan as described except to the extent set forth below. Patient with epigastric pain. Previous history of gastric ulcer. Recommendation EGD to rule out gastric ulcer recurrence
--- NOTE | 2016-11-08 12:36 | Anesthesia Evaluation PreOp ---
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: Denies Any Significant HX Other Medical History: Diabetes Type II, GERD, Other (PUD) Anesthesia History: No Prior Anesthetic Complications, Past Anesthesia (Appy, GB , Knee replacement) : No Alcohol Use: none Drug use: none Medications and Allergies Pantoprazole Sodium [Protonix] 40 mg PO DAILY 02/10/15 [History] Ipratropium/Albuterol Neb [Duoneb] 3 ml IH Q6HR PRN #90 vial.neb 05/02/16 [Rx] cloNIDine HCl [Clonidine HCl] 0.3 mg PO QID 05/16/16 [History] Aspirin 81 mg PO DAILY 07/19/16 [History] Oxygen 3 l .ROUTE AD 07/19/16 [History] Ranitidine HCl [Zantac] 150 mg PO DAILY 07/19/16 [History] clonazePAM [Klonopin] 1 mg PO BID 07/31/16 [History] Insulin Glargine [Lantus] 35 unit SQ HS 08/10/16 [History] Insulin LISPRO [HumaLOG] 0 - 10 units SQ TIDWM 08/10/16 [History] Roflumilast [Daliresp] 500 mcg PO DAILY 08/10/16 [History] Meclizine [Antivert] 25 mg PO TID PRN 09/19/16 [History] Sucralfate [Carafate] 1 gm PO QIDAC #120 tab 09/22/16 [Rx] amLODIPine [Norvasc] 5 mg PO HS #30 tab 09/30/16 [Rx] Albuterol Sulfate [Ventolin Hfa] 2 puff IH Q4H PRN #1 inh 10/15/16 [Rx] Budesonide/Formoterol 160/4.5 [Symbicort 160/4.5] 2 puff IH BIDR #1 inh [Rx] OxyCODONE Immed Rel [Roxicodone 5 MG] 5 mg PO Q8HR PRN 10/24/16 [History] Furosemide [Lasix] 40 mg PO DAILY #30 tab 10/28/16 [Rx] Metoprolol [Lopressor] 25 mg PO BID #60 tab 10/28/16 [Rx] Potassium Chloride [K-Tab ER] 10 meq PO DAILY #30 tablet.er 10/28/16 [Rx] Simvastatin [Zocor] 40 mg PO HS #30 tab 10/28/16 [Rx] predniSONE [PredniSONE] 10 mg PO DAILY 6 Days 10/28/16 [Rx] Dicyclomine [Bentyl] 10 mg PO QID #28 capsule 11/06/16 [Rx] Mag Hydrox/Al Hydrox/Simeth [Maalox] 30 ml PO TID #21 udc 11/06/16 [Rx] Promethazine [Phenergan] 25 mg PO Q6HR #28 tablet 11/06/16 [Rx] Sulfamethoxazole/Trimeth DS [Bactrim DS] 1 each PO BID #6 tablet 11/06/16 [Rx] Magnesium Oxide [Mag-Ox] 400 mg PO DAILY 11/07/16 [History] 3 Allergy/AdvReac Type Severity Reaction Status Date / Time NSAIDS (Non-Steroidal Allergy Unknown See Verified 11/06/16 02:32 Anti-Inflamma Comments Penicillins Allergy Unknown Hives Verified 11/06/16 02:32 lisinopril AdvReac Cough Verified 11/06/16 02:32 tramadol AdvReac Nausea Verified 11/06/16 02:32 - Meds/Allergy Pre-op Review Medications Reviewed: Yes Allergies Reviewed: Yes Beta Blockers on Current Med List: Yes If Beta Blockers taken, Date/Time (Last Dose taken): 11/08/2016 @ 08:58 Anesthesia Results - Labs 11/08/16 04:31 11/08/16 04:31 Echocardiogram Date of Study: 10/24/2016 Impressions: Technically limited study to poor sound wave transmission. Overall LV function appears grossly normal to hyperdynamic. EF 65-70%. Cannot rule out subtle wall motion abnormalities due to technical limitations of study. Normal right ventricular size and function. Valves not well visualized. No significant valvular dysfunction by Doppler criteria. No pulmonary hypertension. - Imaging EKG: image reviewed (SR) Anesthesia Exam O2 Sat Height 1.65 m Weight 76.657 kg O2 Sat by Pulse Oximetry 94 O2 Sat by Pulse Oximetry 94 O2 Sat by Pulse Oximetry 94 O2 Sat by Pulse Oximetry 92 O2 Sat by Pulse Oximetry 99 O2 Sat by Pulse Oximetry 99 O2 Sat by Pulse Oximetry 97 O2 Sat by Pulse Oximetry 97 Vital Signs Temp Pulse Resp BP Pulse Ox 97.8 F 139 16 165/124 88 11/07/16 03:43 11/07/16 03:43 11/07/16 03:43 11/07/16 03:43 11/07/16 03:43 Vital Signs/O2 Sat, Most Current Temp Pulse Resp BP Pulse Ox 98.8 F 92 18 103/62 94 11/08/16 11:47 11/08/16 11:47 11/08/16 11:47 11/08/16 11:47 11/08/16 11:47 Height: 5'5'' Weight: 169# NPO (# of Hours): > 8 Hrs Pain Scale: 0 Pain Scale Used: Numeric (1 - 10) - HEENT Pupil (Motor): Pupils equal, EOMI Mallampati: III Teeth: Edentulous Denture Type: Upper: Complete, Lower: Complete Oral Opening: Greater than 3 - AMBULATORY SERVICE REPRESENTATIVE LOC: Oriented AMBULATORY SERVICE REPRESENTATIVE Motor: Normal RUE, Normal LUE, Normal RLE, Normal LLE, Normal Face AMBULATORY SERVICE REPRESENTATIVE Sensory: Normal: RUE, LUE, RLE, LLE, Face - Cardiac Rhythm: Regular Murmur: None JVD: No Carotid Bruit: No - Pulmonary Breath Sounds: bilateral Clear Respiratory Effort: Symmetrical Anesthesia Assess/Plan ASA Score: 3 Modified Claudia Scale for Level of Consciousness: Cooperative, oriented, and tranquil Anesthetic Plan: MAC Autologous Blood: Yes Monitoring Plan: Standard Monitors Recovery Plan: Other
[2016-11-08] MEDS ORDERED: Simethicone 40 MG/0.6 ML MLS IR ONE (13:10)
[2016-11-08] MEDS ORDERED: Tetracaine/Benzocaine/Butamben 200MG/SPRAY (100SPY/BOT) MM ONE (13:10)
[2016-11-08] MEDS ORDERED: *HR* Propofol 200 MG/20 ML VIAL IVP ONE (15:38)
[2016-11-08] MEDS: Sucralfate 1 GM TABLET PO SCH ×2 (16:07→21:01)
--- NOTE | 2016-11-08 21:55 | Electrocardiograph Report ---
[place] [id number] Test Date: 2016-11-07 Pat Name: Nora Ren Department: 105 Room: 2A38 Gender: F Paper Feeder: YARA : 1960 Requested By: Quirino Correa Order Number: [id number] Reading MD: Low Cordova MD Measurements Intervals Marcell Rate: 142 P: 48 VT: 140 QRS: 52 QRSD: 82 T: 35 QT: 278 QTc: 360 Interpretive Statements SINUS TACHYCARDIA, BASELINE ARTIFACT Electronically Signed On 11-08-2016 21:53:49 EDT by Low Cordova MD
[2016-11-09] MEDS: *HR* HYDROmorphone (PF) 1 MG/ML SYRINGE IVP PRN ×6 (03:17→22:00)
[2016-11-09 05:41] LABS: Hematocrit 31.6 % (35.3-44.9); Hemoglobin 9.3 g/dL (11.5-15.4); Mean Corpuscular HGB Conc 29.4 g/dL (31.6-35.5); Mean Corpuscular Volume 91.6 fL (83.0-100.0); Mean Platelet Volume 10.6 fL (9.4-12.4); Platelet Count 260 K/mcL (140-400); Red Blood Count 3.45 M/mcL (3.82-4.97); Red Cell Distribution Width 14.6 % (11.5-14.5)
[2016-11-09 05:54] LABS: BUN/Creatinine Ratio 21 (6-26); Blood Urea Nitrogen 15 mg/dL (7-20); Calcium 8.3 mg/dL (8.6-10.8); Carbon Dioxide 24 mEq/L (19-29); Chloride 106 mEq/L (98-109); Glucose 180 mg/dL (70-99); Osmolality,Calculated 295 (280-300); Sodium 140 mEq/L (136-145); eGFR For African Americans > 60 (> 60); eGFR For Non-African Americans > 60 (> 60)
[2016-11-09] MEDS: Ondansetron 4 MG/2 ML VIAL IVP PRN ×4 (06:05→23:21)
[2016-11-09] MEDS: Pantoprazole 40 MG VIAL IVP SCH (06:06)
[2016-11-09 06:07] LABS: Lymphocytes # 1.4 K/mcL (0.6-4.6); Monocytes # 0.3 K/mcL (0.0-1.3); Neutrophils # 4.8 K/mcL (1.6-8.9); Platelet Estimate Normal (Normal); Polychromasia 1+ (Not Present); Smudge Cells Present (Not Present)
[2016-11-09] MEDS: Budesonide/Formoterol 160/4.5 MDI IH SCH ×2 (08:17→22:16)
[2016-11-09] MEDS: clonazePAM 1 MG TABLET PO SCH ×2 (08:57→21:28)
[2016-11-09] MEDS: cloNIDine HCl 0.1 MG TABLET PO SCH ×4 (08:57→21:28)
[2016-11-09] MEDS: Sucralfate 1 GM TABLET PO SCH (08:57)
[2016-11-09] MEDS: Insulin LISPRO 300 UNITS/3 ML VIAL SQ SCH ×4 (08:58→22:29)
[2016-11-09] MEDS ORDERED: Albuterol 2.5 MG/3 ML NEBULIZER IH SCH (10:00)
[2016-11-09] MEDS ORDERED: GI Cocktail 40 ML EACH PO PRN (10:10)
--- NOTE | 2016-11-09 10:52 | Internal Med Progress Note ---
<SonusiriatonyaSoy rodriguez - Last Filed: 11/09/16 11:28> Date of Encounter: 11/09/16 Time of Encounter: 09:30 - Assessment and plan (1) Epigastric pain Current Visit: Yes Status: Acute Assessment and plan: not improved Pt has hx of PUD. EGD showed large 15mm ulcer in the pylorus. Continue PPI Continue to hold ASA changed carafate to liquid started GI cocktail prn (2) HTN (hypertension) Current Visit: No Status: Chronic Assessment and plan: Chronic stable. -continue home meds. Qualifiers: Hypertension type: essential hypertension Qualified Code(s): I10 - Essential (primary) hypertension (3) COPD (chronic obstructive pulmonary disease) Current Visit: Yes Status: Acute Assessment and plan: Chronic, Stable. -Continue home meds -continue Incentice spirometry -On Home O2 -continue duonebs prn Qualifiers: COPD type: unspecified COPD Qualified Code(s): J44.9 - Chronic obstructive pulmonary disease, unspecified (4) Renal artery stenosis Current Visit: Yes Status: Acute Assessment and plan: -Patient is s/p stenting. (5) Abdominal aortic aneurysm Current Visit: Yes Status: Acute Assessment and plan: Chronic -Increased in size per latest CT 3.0 cm. -Stable. -Continue to monitor. Qualifiers: Presence of rupture: without rupture Qualified Code(s): I71.4 - Abdominal aortic aneurysm, without rupture (6) Asymptomatic bacteriuria Current Visit: Yes Status: Acute Assessment and plan: Patient denies urinary symptoms. -Agree with plan not to treat. 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 Denies vomiting this morning. Explained to patient results of her EGD. GIs plan was to follow up patient as an out patient with a rescope in 2 months for surveillance. Patholog pending from biopsies. - Constitutional Vitals: Temp Pulse Resp BP Pulse Ox 98.9 F 97 20 115/75 97 11/09/16 07:56 11/09/16 07:56 11/09/16 10:47 11/09/16 07:56 11/09/16 10:47 General appearance: Present: A&O X 3, morbidly obese, answers questions appropriately - Head Head exam: Present: atraumatic, normocephalic - Eye Eye exam: Present: PERRL, conjuntiva pink, sclera anicteric Pupils: Present: PERRL - Neck Neck exam general surgery: Present: supple, trachea midline - Respiratory Respiratory exam: Present: decreased breath sounds, CTAB. Absent: accessory muscle use, rales, rhonchi, wheezes - Cardiovascular Cardiovascular exam: Present: RRR, +S1, +S2. Absent: diastolic murmur, gallop, rubs, systolic murmur - GI/Abdominal GI/Abdominal exam: Present: normal bowel sounds, soft, tenderness (epigastric region), no peritoneal signs. Absent: distended - Extremities Exam Extremities exam: Present: pedal edema (trace), warm. Absent: calf tenderness, cyanotic - Neurological Exam Neurological exam: Present: alert, oriented X3, no focal deficits. Absent: facial droop, speech deficit - Skin Skin exam: Present: dry, intact Internal Medicine: Result - Labs CBC & Chem 7: 11/09/16 04:56 11/09/16 04:56 Labs: Short CBC 11/09/16 Range/Units 04:56 WBC 6.9 (4.3-11.1) K/mcL Hgb 9.3 L (11.5-15.4) g/dL Hct 31.6 L (35.3-44.9) % Plt Count 260 (140-400) K/mcL Neutrophils # 4.8 (1.6-8.9) K/mcL BMP 11/09/16 04:56 Sodium 140 Potassium 4.0 Chloride 106 Carbon Dioxide 24 BUN 15 Creatinine 0.73 Glucose 180 H Calcium 8.3 L Consult Discharge Plan - Plan Referrals: Jasper Pat DO [Primary Care Provider] - 11/16/16 1:30 pm (web request ) <Delmar Blank - Last Filed: 11/09/16 18:23> Date of Encounter: 11/09/16 - Constitutional Vitals: Temp Pulse Resp BP Pulse Ox 97.5 F L 87 18 99/65 92 11/09/16 16:54 11/09/16 16:54 11/09/16 16:54 11/09/16 16:54 11/09/16 16:54 Internal Medicine: Result - Labs CBC & Chem 7: 11/09/16 04:56 11/09/16 04:56 Labs: Short CBC 11/09/16 Range/Units 04:56 WBC 6.9 (4.3-11.1) K/mcL Hgb 9.3 L (11.5-15.4) g/dL Hct 31.6 L (35.3-44.9) % Plt Count 260 (140-400) K/mcL Neutrophils # 4.8 (1.6-8.9) K/mcL BMP 11/09/16 04:56 Sodium 140 Potassium 4.0 Chloride 106 Carbon Dioxide 24 BUN 15 Creatinine 0.73 Glucose 180 H Calcium 8.3 L - Attending Attestation I examined this patient and my medical decision-making was reviewed with the Resident Physician. I agree with the documented findings, disposition and treatment plan as described except to the extent set forth below.
[2016-11-09] MEDS ORDERED: Ipratropium/Albuterol Neb 3 ML IH PRN (12:00)
[2016-11-09] MEDS: amLODIPine 5 MG TABLET PO SCH (21:28)
[2016-11-09] MEDS: Insulin DETEMIR 100 UNIT/ML X5UNITS SQ SCH (22:29)
[2016-11-10] MEDS: *HR* HYDROmorphone (PF) 1 MG/ML SYRINGE IVP PRN ×6 (01:23→15:28)
[2016-11-10] MEDS: Ondansetron 4 MG/2 ML VIAL IVP PRN ×2 (05:43→12:47)
[2016-11-10 06:26] LABS: Hemoglobin 8.8 g/dL (11.5-15.4); Mean Corpuscular HGB Conc 30.3 g/dL (31.6-35.5); Mean Corpuscular Hemoglobin 27.2 pg (28.0-33.3); Mean Corpuscular Volume 89.8 fL (83.0-100.0); Mean Platelet Volume 10.8 fL (9.4-12.4); Platelet Count 255 K/mcL (140-400); Red Blood Count 3.23 M/mcL (3.82-4.97); Red Cell Distribution Width 14.4 % (11.5-14.5)
[2016-11-10 07:13] LABS: BUN/Creatinine Ratio 20 (6-26); Blood Urea Nitrogen 13 mg/dL (7-20); Carbon Dioxide 27 mEq/L (19-29); Chloride 103 mEq/L (98-109); Glucose 202 mg/dL (70-99); Osmolality,Calculated 292 (280-300); Potassium 3.9 mEq/L (3.5-4.5); Sodium 138 mEq/L (136-145); eGFR For African Americans > 60 (> 60); eGFR For Non-African Americans > 60 (> 60)
[2016-11-10] MEDS: clonazePAM 1 MG TABLET PO SCH (07:52)
[2016-11-10] MEDS: cloNIDine HCl 0.1 MG TABLET PO SCH ×2 (07:53→13:43)
[2016-11-10] MEDS: Insulin LISPRO 300 UNITS/3 ML VIAL SQ SCH ×2 (07:54→11:34)
[2016-11-10] MEDS ORDERED: Furosemide 40 MG TABLET PO SCH (09:00)
[2016-11-10] MEDS: Budesonide/Formoterol 160/4.5 MDI IH SCH (10:10)
[2016-11-10 11:30] VITALS: BP 105/68
--- NOTE | 2016-11-10 14:42 | Discharge Summary ---
<Soy Gonzalez - Last Filed: 11/10/16 15:20> Date of Encounter: 11/10/16 Time of Encounter: 08:15 - Discharge Diagnosis (1) Epigastric pain Priority: Primary Status: Acute (2) HTN (hypertension) Priority: Secondary Status: Chronic Qualifiers: Hypertension type: essential hypertension Qualified Code(s): I10 - Essential (primary) hypertension (3) COPD (chronic obstructive pulmonary disease) Priority: Secondary Status: Acute Qualifiers: COPD type: unspecified COPD Qualified Code(s): J44.9 - Chronic obstructive pulmonary disease, unspecified (4) Renal artery stenosis Priority: Secondary Status: Acute (5) Abdominal aortic aneurysm Priority: Secondary Status: Acute Qualifiers: Presence of rupture: without rupture Qualified Code(s): I71.4 - Abdominal aortic aneurysm, without rupture (6) Asymptomatic bacteriuria Priority: Secondary Status: Acute (7) Diabetes mellitus Priority: Secondary Status: Acute Qualifiers: Diabetes mellitus type: type 2 Diabetes mellitus complication status: with hyperglycemia Diabetes mellitus custodial insulin use: with termite treater helper use Qualified Code(s): E11.65 - Type 2 diabetes mellitus with hyperglycemia; 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 Ranitidine HCl [Zantac] 150 mg PO DAILY #30 tablet Sucralfate [Carafate] 1 gm PO QIDAC #120 tab Home Medications: Ipratropium/Albuterol Neb [Duoneb] 3 ml IH Q6HR PRN #90 vial.neb 05/02/16 [Rx] cloNIDine HCl [Clonidine HCl] 0.3 mg PO QID 05/16/16 [History] Oxygen 3 l .ROUTE AD 07/19/16 [History] clonazePAM [Klonopin] 1 mg PO BID 07/31/16 [History] Insulin Glargine [Lantus] 35 unit SQ HS 08/10/16 [History] Insulin LISPRO [HumaLOG] 0 - 10 units SQ TIDWM 08/10/16 [History] Roflumilast [Daliresp] 500 mcg PO DAILY 08/10/16 [History] Meclizine [Antivert] 25 mg PO TID PRN 09/19/16 [History] amLODIPine [Norvasc] 5 mg PO HS #30 tab 09/30/16 [Rx] Albuterol Sulfate [Ventolin Hfa] 2 puff IH Q4H PRN #1 inh 10/15/16 [Rx] Budesonide/Formoterol 160/4.5 [Symbicort 160/4.5] 2 puff IH BIDR #1 inh [Rx] OxyCODONE Immed Rel [Roxicodone 5 MG] 5 mg PO Q8HR PRN 10/24/16 [History] Furosemide [Lasix] 40 mg PO DAILY #30 tab 10/28/16 [Rx] Metoprolol [Lopressor] 25 mg PO BID #60 tab 10/28/16 [Rx] Simvastatin [Zocor] 40 mg PO HS #30 tab 10/28/16 [Rx] Dicyclomine [Bentyl] 10 mg PO QID #28 capsule 11/06/16 [Rx] Promethazine [Phenergan] 25 mg PO Q6HR #28 tablet 11/06/16 [Rx] Magnesium Oxide [Mag-Ox] 400 mg PO DAILY 11/07/16 [History] Mag Hydrox/Al Hydrox/Simeth [Maalox] 30 ml PO TID #21 udc 11/10/16 [Rx] Ondansetron [Zofran] 4 mg PO Q6HR PRN #120 tab 11/10/16 [Rx] Pantoprazole Sodium [Protonix] 40 mg PO BIDWM #60 tablet. 11/10/16 [Rx] Ranitidine HCl [Zantac] 150 mg PO DAILY #30 tablet 11/10/16 [Rx] Sucralfate [Carafate] 1 gm PO QIDAC #120 tab 11/10/16 [Rx] Allergies/Adverse Reactions: 3 Allergy/AdvReac Type Severity Reaction Status Date / Time NSAIDS (Non-Steroidal Allergy Unknown See Verified 11/06/16 02:32 Anti-Inflamma Comments Penicillins Allergy Unknown Hives Verified 11/06/16 02:32 lisinopril AdvReac Cough Verified 11/06/16 02:32 tramadol AdvReac Nausea Verified 11/06/16 02:32 Procedures/tests Complete & Pending: CXR: "FINDINGS: The patient's chin projects over the apices. The image is overexposed. There is no definite acute infiltrate. The heart size is normal. There is no large pleural effusion. XR/XR chest 1V portable IMPRESSION: Limited exam with no definite acute airspace disease." EGD: "-Normal esophagus, non bleeding gastric ulcer with no stigmata of bleedng, biopsied, normal examined duodenum" Ulcer Biopsy: "Ulcerated gastric mucosa with acute inflammation and intestinal metaplasia. Negative for dysplasia. Negative for carcinoma. " Date of admission: 11/08/16 18:34 Primary care physician: Brittney Duran Consults: Gastroenterology Discharging clinician: Soy Gonzalez Anticipated date of discharge: 11/10/16 - Patient Status Disposition: Home, Self-Care Condition: Fair Functional capacity at discharge: independent ambulation Overall status at discharge: patient is progressing back to baseline - Discharge Instructions Follow Up With: Jasper Pat DO [Primary Care Provider] - 11/16/16 1:30 pm () Kijnal Smith MD [Partnered Physician] - (Please follow up with GI.) Additional Instructions: Please follow up with your primary care provider within 1 week of discharge. Please follow up with Gastroenterology(GI, stomach specialist) as scheduled. Please take all your medications as prescribed. Please stop taking your aspirin and potassium until you talk to GI about these medications. Please return to the hospital if you experience any new or worsening symptoms. - Diet and Activity Activity: resume usual activities as tolerated Diet: diabetic diet Interval History: Patient reports some improvement in pain. Biopsy results negative for dysplasia or Cancer. Per GI nothing more to offer patient at this time GI will follow up as an outpatient. Hospital course: Ms. Ren is a 56 year old female c Pmhx of peptic ulcer disease, obesity, chronic respiratory failure secondary to COPD for which she is on 3 L of oxygen at home, hypertension, hyperlipidemia, abdominal aortic aneurysm, renal artery stenosis status post stenting, and insulin-dependent diabetes mellitus reports to the hospital complaining of Epigastric aching in quality that she reports is similar to her peptic ulcer disease pain. She was evaluated by GI. GI performed an EGD which noted one large 15mm ulcer that was non bleeding. Biopsies were taken. GI states she is on maximum medical therapy and that there is nothing more to do at this time. They suggest follow up with them as an outpatient. Biopsy was negative for dysplasia or cancer. - Time Spent with Patient Total time spent providing and/or coordinating discharge services: 40 Minutes - Constitutional Vitals: Temp Pulse Resp BP Pulse Ox 97.8 F 70 17 105/68 91 11/10/16 11:28 11/10/16 11:11/10/16 11:11/10/16 11:11/10/16 11:28 General appearance: Present: A&O X 3, morbidly obese, answers questions appropriately - Head Head exam: Present: atraumatic, normocephalic - Eye Eye exam: Present: PERRL, conjuntiva pink, sclera anicteric Pupils: Present: PERRL - Neck Neck exam general surgery: Present: supple, trachea midline - Respiratory Respiratory exam: Present: decreased breath sounds, CTAB. Absent: accessory muscle use, rales, rhonchi, wheezes - Cardiovascular Cardiovascular exam: Present: RRR, +S1, +S2. Absent: diastolic murmur, gallop, rubs, systolic murmur - GI/Abdominal GI/Abdominal exam: Present: normal bowel sounds, soft, tenderness (epigastric region), no peritoneal signs. Absent: distended - Extremities Exam Extremities exam: Present: warm, radial pulses palpable and symmetrical. Absent : calf tenderness, cyanotic, pedal edema - Neurological Exam Neurological exam: Present: alert, oriented X3. Absent: facial droop, speech deficit - Skin Skin exam: Present: dry, intact <Rosamaria,Delmar P - Last Filed: 11/10/16 18:00> Date of Encounter: 11/10/16 Date of admission: 11/08/16 18:34 Primary care physician: Brittney Duran Hospital course: Ms. Ren is a 56 year old female - Time Spent with Patient Total time spent providing and/or coordinating discharge services: - Constitutional Vitals: Temp Pulse Resp BP Pulse Ox 97.8 F 70 17 105/68 91 11/10/16 11:28 11/10/16 11:11/10/16 11:11/10/16 11:28 11/10/16 11:28 - Attending Attestation I examined this patient and my medical decision-making was reviewed with the Resident Physician. I agree with the documented findings, disposition and treatment plan as described except to the extent set forth below.
== END 2016-11-10 15:39 | disposition home or self-care (01) | DRG 392 ==
LOC: 2ANU 03:42 → EMEROO 03:42 → 2ANU 07:53
PROVIDERS: ADMIT Internal Medicine; ATTEND Internal Medicine
PROC: ENDOEBX (2016-11-08 13:00)

== ENCOUNTER 2016-11-19 20:16 | Observation (INO) ==
[2016-11-19] MEDS ORDERED: methylPREDNISolone 125 MG/2 ML VIAL IVP ONE (20:51)
[2016-11-19] MEDS ORDERED: Ipratropium/Albuterol Neb 3 ML IH ONE ×2 (20:51→22:04)
--- NOTE | 2016-11-19 21:15 | Emergency Department Note ---
Disposition Clinical Impression: COPD exacerbation Disposition: Admitted As Inpatient Condition: Fair Referrals: Domitila Lau MD [Primary Care Provider] - Forms: ED Satisfaction Letter Time of Disposition: 23:06 SOB HPI - General Chief Complaint: ED Shortness of Breath/Dyspnea Stated Complaint: LESTER Hx COPD Time Seen by Provider: 11/19/16 20:29 Source: patient Mode of arrival: ambulatory Limitations: no limitations Nursing Notes Reviewed: Yes Vital Signs Reviewed: Yes - History of Present Illness Patient is a 56-year-old female who presents to [facility] ED with a chief complaint of difficulty breathing. States her symptoms started yesterday. States the rainy weather always flares up her COPD. States she has been using her DuoNeb treatments every 4 hours. She has chronic COPD and is on 3 L of oxygen at home. She follows with [employer] director Dr. Nelson. States she has been getting more and more out of breath just walking short distances in the house. Denies any nausea, vomiting, fever or chills. No cough or recent URI. No chest pain or abdominal pain. No problems with urination or bowel movements. 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 (ago): day(s) Severity: moderate Consistency/Duration: gradually worsening Improves with: nothing Worsens with: exertion Known history of: COPD Associated symptoms: Reports: wheezing. Denies: chest pain, fever, cough, orthopnea, nausea/vomiting, abdominal pain Treatment prior to arrival: oxygen Cough present: No Sputum production: No - Related Data Home oxygen amount: 3 liters Home Medications Medication Instructions Recorded Confirmed cloNIDine HCl [Clonidine HCl] 0.3 mg PO QID 05/16/16 11/07/16 Oxygen 3 l .ROUTE AD 07/19/16 11/07/16 clonazePAM [Klonopin] 1 mg PO BID 07/31/16 11/07/16 Insulin Glargine [Lantus] 35 unit SQ HS 08/10/16 11/07/16 Insulin LISPRO [HumaLOG] 0 - 10 units SQ TIDWM 08/10/16 11/07/16 Roflumilast [Daliresp] 500 mcg PO DAILY 08/10/16 11/07/16 Meclizine [Antivert] 25 mg PO TID PRN 09/19/16 11/07/16 OxyCODONE Immed Rel [Roxicodone 5 5 mg PO Q8HR PRN 10/24/16 11/07/16 MG] Magnesium Oxide [Mag-Ox] 400 mg PO DAILY 11/07/16 11/07/16 Previous Rx's Medication Instructions Recorded Ipratropium/Albuterol Neb [Duoneb] 3 ml IH Q6HR PRN #90 vial.neb 05/02/16 amLODIPine [Norvasc] 5 mg PO HS #30 tab 09/30/16 Albuterol Sulfate [Ventolin Hfa] 2 puff IH Q4H PRN #1 inh 10/15/16 Budesonide/Formoterol 160/4.5 2 puff IH BIDR #1 inh 10/15/16 [Symbicort 160/4.5] Furosemide [Lasix] 40 mg PO DAILY #30 tab 10/28/16 Metoprolol [Lopressor] 25 mg PO BID #60 tab 10/28/16 Simvastatin [Zocor] 40 mg PO HS #30 tab 10/28/16 Dicyclomine [Bentyl] 10 mg PO QID #28 capsule 11/06/16 Promethazine [Phenergan] 25 mg PO Q6HR #28 tablet 11/06/16 Mag Hydrox/Al Hydrox/Simeth 30 ml PO TID #21 udc 11/10/16 [Maalox] Ondansetron [Zofran] 4 mg PO Q6HR PRN #120 tab 11/10/16 Pantoprazole Sodium [Protonix] 40 mg PO BIDWM #60 tablet. 11/10/16 Ranitidine HCl [Zantac] 150 mg PO DAILY #30 tablet 11/10/16 Sucralfate [Carafate] 1 gm PO QIDAC #120 tab 11/10/16 Allergies Allergy/AdvReac Type Severity Reaction Status Date / Time NSAIDS (Non-Steroidal Allergy Unknown See Verified 11/19/16 20:25 Anti-Inflamma Comments Penicillins Allergy Unknown Hives Verified 11/19/16 20:25 lisinopril AdvReac Cough Verified 11/19/16 20:25 tramadol AdvReac Nausea Verified 11/19/16 20:25 All systems ED: reviewed and negative except as stated. Past Medical History - Past Medical History Attestation: Yes The following information was validated with the patient. Source: patient Medical history: Reports: asthma, COPD, diabetes, GERD, hyperlipidemia, hypertension Surgical history: Reports: appendectomy, cholecystectomy, knee replacement, other Psychiatric history: Reports: anxiety PSYCH TECH history: Reports: ectopic , other - Social History Smoking Status: Former smoker Smokeless Tobacco Status: No Alcohol use: Reports: none Drug use: Reports: none Physical Exam - General Limitations: no limitations General appearance: alert, in no apparent distress - Head Head exam: atraumatic, normocephalic, normal inspection - Eye Eye exam: Present: normal appearance, EOMI - ENT ENT exam: normal exam, normal oropharynx, mucous membranes moist - Neck Neck exam: Present: normal inspection, full ROM, trachea midline - Chest Chest inspection: Present: normal inspection, symmetric chest wall rise - Respiratory Respiratory exam: Present: wheezes, prolonged expiratory phase - Cardiovascular Cardiovascular exam: Present: normal rhythm, tachycardia, normal heart sounds - Abdominal Exam Abdominal exam: Present: soft, Non-Tender. Absent: tenderness, distention, guarding, rebound, rigidity - Extremities Exam Extremities exam: Present: normal inspection, full ROM. Absent: tenderness, pedal edema - Back Exam Back exam: Present: normal inspection, full ROM. Absent: tenderness - Neurological Exam Neurological exam: Present: alert - Psychiatric Psychiatric exam: Present: normal affect, normal mood - Skin Skin exam: Present: warm, dry, intact, normal color Course Course Narrative: Patient seen and examined. Difficulty breathing with history of COPD. Patient has already been using her DuoNeb treatments at home every 4 hours. Patient has diffuse wheezing bilaterally and minimally moves air in the upper lobes. We will do a triple as well as IV Solu-Medrol. We will do a cardiopulmonary workup. Patient will likely be admitted for COPD exacerbation. - Reevaluation(s) Reevaluation #1: After receiving a triple duo neb, patient continues to feel short of breath. She has decreased breath sounds throughout all her lung salazar. Still has some wheezing. Will admit for COPD exacerbation. Time: 22:53 Reevaluation #2: Patient admitted for COPD exacerbation. Dr. Omer accepted. Time: 23:06 Vital Signs Respiratory Rate 16 11/19/16 20:20 O2 Sat by Pulse Oximetry 96 11/19/16 20:20 Temperature 98.9 F 11/19/16 20:22 Pulse Rate 131 11/19/16 21:26 Respiratory Rate 20 11/19/16 21:26 Blood Pressure 146/100 11/19/16 21:26 O2 Sat by Pulse Oximetry 97 11/19/16 21:26 Oxygen Delivery Oxygen Delivery Nasal Cannula Shortness of Breath/Dyspnea - Medical Records Medical records reviewed: Yes I reviewed the patient's medical records. - Lab Data Lab results reviewed: Yes I reviewed the patient's lab results. Result diagrams: 11/19/16 21:21 11/19/16 21:21 Lab Results 11/19/16 11/19/16 11/19/16 Range/Units 21:21 21:21 21:21 WBC 8.6 (4.3-11.1) K/mcL RBC 3.84 (3.82-4.97) M/mcL Hgb 10.4 L (11.5-15.4) g/dL Hct 35.0 L (35.3-44.9) % MCV 91.1 (83.0-100.0) fL MCH 27.1 L (28.0-33.3) pg MCHC 29.7 L (31.6-35.5) g/dL RDW 15.8 H (11.5-14.5) % Plt Count 378 (140-400) K/mcL MPV 10.0 (9.4-12.4) fL Immature Gran % 2.7 (0-4) % Seg Neutrophils % 60.1 % Lymphocytes % 25.4 % Monocytes % 9.2 % Eosinophils % 2.0 % Basophils % 0.6 % Neutrophils # 5.2 (1.6-8.9) K/mcL Lymphocytes # 2.2 (0.6-4.6) K/mcL Monocytes # 0.8 (0.0-1.3) K/mcL Eosinophils # 0.2 (0.0-0.6) K/mcL Basophils # 0.1 (0.0-0.2) K/mcL Sodium 142 (136-145) mEq/L Potassium 4.0 (3.5-4.5) mEq/L Chloride 105 (98-109) mEq/L Carbon Dioxide 25 (19-29) mEq/L BUN 16 (7-20) mg/dL Creatinine 0.81 (0.57-1.11) mg/dL Est GFR ( Amer) > 60 (> 60) Est GFR (Non-Af Amer) > 60 (> 60) BUN/Creatinine Ratio 20 (6-26) Glucose 129 H (70-99) mg/dL Calculated Osmolality 297 (280-300) Lactic Acid 1.9 (0.5-2.2) mmol/L Calcium 8.9 (8.6-10.8) mg/dL Troponin I (0-0.03) ng/mL B-Natriuretic Peptide (0-100) pg/mL 11/19/16 11/19/16 Range/Units 21:21 21:21 WBC (4.3-11.1) K/mcL RBC (3.82-4.97) M/mcL Hgb (11.5-15.4) g/dL Hct (35.3-44.9) % MCV (83.0-100.0) fL MCH (28.0-33.3) pg MCHC (31.6-35.5) g/dL RDW (11.5-14.5) % Plt Count (140-400) K/mcL MPV (9.4-12.4) fL Immature Gran % (0-4) % Seg Neutrophils % % Lymphocytes % % Monocytes % % Eosinophils % % Basophils % % Neutrophils # (1.6-8.9) K/mcL Lymphocytes # (0.6-4.6) K/mcL Monocytes # (0.0-1.3) K/mcL Eosinophils # (0.0-0.6) K/mcL Basophils # (0.0-0.2) K/mcL Sodium (136-145) mEq/L Potassium (3.5-4.5) mEq/L Chloride (98-109) mEq/L Carbon Dioxide (19-29) mEq/L BUN (7-20) mg/dL Creatinine (0.57-1.11) mg/dL Est GFR ( Amer) (> 60) Est GFR (Non-Af Amer) (> 60) BUN/Creatinine Ratio (6-26) Glucose (70-99) mg/dL Calculated Osmolality (280-300) Lactic Acid (0.5-2.2) mmol/L Calcium (8.6-10.8) mg/dL Troponin I 0.01 (0-0.03) ng/mL B-Natriuretic Peptide 28 (0-100) pg/mL - Radiology Data Radiology results reviewed: Yes I reviewed the patient's radiology results. Chest X-Ray 11/19/16 20:51 IMPRESSION: Question of COPD. Increased lung markings at the bilateral infrahilar regions, may be related to minimal bronchitis. D/ / Greg Terrell MD / Greg Terrell MD Interpreting Provider: Greg Terrell MD - EKG Data EKG attestation: Yes I reviewed and interpreted this EKG. EKG results narrative: EKG done at 2114 shows sinus tachycardia with a rate of [address] elevation or depression. Normal axis. EKG is unchanged from prior EKG done . Attestation Statement - Attestation Attestation: I examined this patient and my medical decision-making was reviewed with the Resident Physician. I agree with the documented findings, disposition and treatment plan as described except to the extent set forth below. Patient ED with cough shortness of breath. Patient with end-stage COPD on home oxygen. Did some DuoNeb nebs at home but was still short of breath so comes for evaluation. On my evaluation she has diminished air exchange. Satting well on 3 L of oxygen. She is in no distress. Plan. Cardiac workup. Nebs and steroids. We will reevaluate. Likely admmission.
[2016-11-19 21:32] LABS: Basophils # 0.1 K/mcL (0.0-0.2); Basophils % 0.6 %; Eosinophils # 0.2 K/mcL (0.0-0.6); Hemoglobin 10.4 g/dL (11.5-15.4); Immature Granulocytes % 2.7 % (0-4); Lymphocytes # 2.2 K/mcL (0.6-4.6); Lymphocytes % 25.4 %; Mean Corpuscular HGB Conc 29.7 g/dL (31.6-35.5); Mean Corpuscular Hemoglobin 27.1 pg (28.0-33.3); Mean Corpuscular Volume 91.1 fL (83.0-100.0); Monocytes # 0.8 K/mcL (0.0-1.3); Monocytes % 9.2 %; Neutrophils # 5.2 K/mcL (1.6-8.9); Platelet Count 378 K/mcL (140-400); Red Blood Count 3.84 M/mcL (3.82-4.97); Red Cell Distribution Width 15.8 % (11.5-14.5); Segmented Neutrophils % 60.1 %
[2016-11-19 21:42] LABS: BUN/Creatinine Ratio 20 (6-26); Blood Urea Nitrogen 16 mg/dL (7-20); Calcium 8.9 mg/dL (8.6-10.8); Carbon Dioxide 25 mEq/L (19-29); Chloride 105 mEq/L (98-109); Glucose 129 mg/dL (70-99); Osmolality,Calculated 297 (280-300); Sodium 142 mEq/L (136-145); eGFR For African Americans > 60 (> 60); eGFR For Non-African Americans > 60 (> 60)
[2016-11-19] MEDS ORDERED: Ondansetron 4 MG/2 ML VIAL IVP ONE (22:46)
[2016-11-20] MEDS ORDERED: NON-FORMULARY MEDICATION 1 EACH EACH (Oxygen [Oxygen] 3 L) SCH (01:00)
--- NOTE | 2016-11-20 01:06 | Internal Med History&Physical ---
Date of Encounter: 11/20/16 Time of Encounter: 01:03 Assessment and Plan (1) Acute exacerbation of chronic obstructive airways disease Current visit: No Status: Acute Patient presents with mild COPD exacerbation. Will start on oral prednisone 40 mg daily queue for our nebulizer treatment, azithromycin for acute bronchitis. There is no increase in oxygen requirements. Observation admission. Expected hospital stay less than 48 hours. Full code (2) Diabetes mellitus Current visit: No Status: Chronic Sliding scale insulin Q4 hours and long-acting insulin. Watch diabetes control because of steroids. 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 Qualifiers: Hypertension type: essential hypertension Qualified Code(s): I10 - Essential (primary) hypertension Internal Medicine - H&P: HPI Chief complaint: sob History of present illness: Ms. Ren is a 56 year old female with history of COPD on 3 L home oxygen and hospitalization almost monthly for COPD exacerbations presented emergency room today with a complete shortness of breath. Over the past couple days patient has been noticing progressive shortness of breath to the point where she short of breath at rest she has been having increased cough compared to baseline no significant sputum production. She uses her nebulizer every 4 hours. She mentioned that she preferred to come to the emergency room despite only mild worsening of her symptoms. She denies any fevers or chills. No chest pain. No lower extremity swelling orthopnea or paroxysmal nocturnal Dyspnea Past Med Surg Social Fam HX - Past Medical History Medical history: asthma, COPD, diabetes, GERD, hyperlipidemia, hypertension Psychiatric history: anxiety - Past Surgical History Surgical History: appendectomy, cholecystectomy, knee replacement, other - Social History Smoking Status: Former smoker Smokeless Tobacco Status: No Alcohol use: none Drug use: none - Family History Father Family Member Ethnicity: Non- Living Status: Hx Family Cardiac Disorders: Yes (Atheroslcerosis) Mother History Unknown: Yes Family Member Ethnicity: Non- Living Status: Still Living Hx Family Cardiac Disorders: Yes (HTN) Hx Family Respiratory Disorders: No Hx Family Cancer: No Hx Family GI Disorders: No Hx Family Endocrine Disorder: Yes (DM) Hx Family Neuromuscular Disorders: No Hx Family Neurologic Disorders: No Hx Family HEENT Disorders: No Hx Family Autoimmune Disorders: No Internal Medicine - H&P: Meds Ipratropium/Albuterol Neb [Duoneb] 3 ml IH Q6HR PRN #90 vial.neb 05/02/16 [Rx] cloNIDine HCl [Clonidine HCl] 0.3 mg PO QID 05/16/16 [History] Oxygen 3 l .ROUTE AD 07/19/16 [History] clonazePAM [Klonopin] 1 mg PO BID 07/31/16 [History] Insulin Glargine [Lantus] 35 unit SQ HS 08/10/16 [History] Insulin LISPRO [HumaLOG] 0 - 10 units SQ TIDWM 08/10/16 [History] Roflumilast [Daliresp] 500 mcg PO DAILY 08/10/16 [History] Meclizine [Antivert] 25 mg PO TID PRN 09/19/16 [History] amLODIPine [Norvasc] 5 mg PO HS #30 tab 09/30/16 [Rx] Albuterol Sulfate [Ventolin Hfa] 2 puff IH Q4H PRN #1 inh 10/15/16 [Rx] Budesonide/Formoterol 160/4.5 [Symbicort 160/4.5] 2 puff IH BIDR #1 inh [Rx] OxyCODONE Immed Rel [Roxicodone 5 MG] 5 mg PO Q8HR PRN 10/24/16 [History] Furosemide [Lasix] 40 mg PO DAILY #30 tab 10/28/16 [Rx] Metoprolol [Lopressor] 25 mg PO BID #60 tab 10/28/16 [Rx] Simvastatin [Zocor] 40 mg PO HS #30 tab 10/28/16 [Rx] Dicyclomine [Bentyl] 10 mg PO QID #28 capsule 11/06/16 [Rx] Promethazine [Phenergan] 25 mg PO Q6HR #28 tablet 11/06/16 [Rx] Magnesium Oxide [Mag-Ox] 400 mg PO DAILY 11/07/16 [History] Mag Hydrox/Al Hydrox/Simeth [Maalox] 30 ml PO TID #21 udc 11/10/16 [Rx] Ondansetron [Zofran] 4 mg PO Q6HR PRN #120 tab 11/10/16 [Rx] Pantoprazole Sodium [Protonix] 40 mg PO BIDWM #60 tablet. 11/10/16 [Rx] Ranitidine HCl [Zantac] 150 mg PO DAILY #30 tablet 11/10/16 [Rx] Sucralfate [Carafate] 1 gm PO QIDAC #120 tab 11/10/16 [Rx] 3 Allergy/AdvReac Type Severity Reaction Status Date / Time NSAIDS (Non-Steroidal Allergy Unknown See Verified 11/19/16 20:25 Anti-Inflamma Comments Penicillins Allergy Unknown Hives Verified 11/19/16 20:25 lisinopril AdvReac Cough Verified 11/19/16 20:25 tramadol AdvReac Nausea Verified 11/19/16 20:25 All Systems PM: A 10-system review of systems was performed and is negative for pertinent findings except as documented above in the HPI. Review of systems: 10 point review of systems is negative except for HPI - Constitutional Vitals: Temp Pulse Resp BP Pulse Ox 98.9 F 130 20 154/102 94 11/19/16 20:22 11/19/16 22:52 11/19/16 23:22 11/19/16 23:22 11/19/16 22:52 Exam: Gen.: patient is alert oriented times 3 cardiac: normal S1 S2 no additional sounds or murmurs chest: scattered expirator wheeze. No crackles or bronchial breathing abdomen soft nontender nondistended normal bowel sounds lower extremity no swelling. Neuro: no new focal deficits Internal Med - H&P Results - Labs CBC & Chem 7: 11/19/16 21:21 11/19/16 21:21
[2016-11-20] MEDS: *HR* OxyCODONE Immed Rel 5 MG TABLET PO PRN ×3 (01:35→19:41)
[2016-11-20] MEDS: Azithromycin 500 MG in D5% in Water 250 ML IVPB SCH (01:36)
[2016-11-20] MEDS: Ipratropium/Albuterol Neb 3 ML IH SCH ×6 (03:25→23:44)
[2016-11-20 04:26] LABS: Basophils # 0.1 K/mcL (0.0-0.2); Basophils % 0.9 %; Hematocrit 37.1 % (35.3-44.9); Hemoglobin 10.8 g/dL (11.5-15.4); Immature Granulocytes % 3.8 % (0-4); Lymphocytes # 0.4 K/mcL (0.6-4.6); Lymphocytes % 4.7 %; Mean Corpuscular HGB Conc 29.1 g/dL (31.6-35.5); Mean Corpuscular Hemoglobin 25.9 pg (28.0-33.3); Monocytes # 0.1 K/mcL (0.0-1.3); Monocytes % 0.9 %; Platelet Count 429 K/mcL (140-400); Red Blood Count 4.17 M/mcL (3.82-4.97); Red Cell Distribution Width 15.3 % (11.5-14.5); Segmented Neutrophils % 89.7 %
[2016-11-20 04:38] LABS: BUN/Creatinine Ratio 19 (6-26); Blood Urea Nitrogen 15 mg/dL (7-20); Calcium 8.8 mg/dL (8.6-10.8); Carbon Dioxide 21 mEq/L (19-29); Chloride 102 mEq/L (98-109); Glucose 340 mg/dL (70-99); Magnesium 1.3 mg/dL (1.6-2.6); Osmolality,Calculated 300 (280-300); Potassium 4.2 mEq/L (3.5-4.5); Sodium 138 mEq/L (136-145); eGFR For African Americans > 60 (> 60); eGFR For Non-African Americans > 60 (> 60)
[2016-11-20] MEDS: Insulin LISPRO 300 UNITS/3 ML VIAL SQ SCH ×5 (05:14→21:05)
[2016-11-20] MEDS: *HR* Heparin 5,000 UNIT/ML VIAL SQ SCH ×3 (05:15→21:04)
[2016-11-20] MEDS: Budesonide/Formoterol 160/4.5 MDI IH SCH ×2 (07:40→20:06)
[2016-11-20] MEDS: predniSONE 20 MG TABLET PO SCH (07:50)
[2016-11-20] MEDS: Magnesium Oxide 400 MG TABLET PO SCH (07:50)
[2016-11-20] MEDS: clonazePAM 1 MG TABLET PO SCH ×2 (07:50→19:42)
[2016-11-20] MEDS: (Roflumilast [Daliresp] 500 MCG) PO SCH (07:51)
--- NOTE | 2016-11-20 18:44 | Internal Med Progress Note ---
Date of Encounter: 11/20/16 Time of Encounter: 11:45 - Assessment and plan (1) Acute exacerbation of chronic obstructive airways disease Current Visit: No Status: Acute Assessment and plan: Continue prednisone and DuoNeb treatment (2) Diabetes mellitus Current Visit: No Status: Chronic Assessment and plan: Early she is hyperglycemic likely secondary to corticosteroid therapy. We will cover her with basal insulin and this time. 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 He has documented allergy to shanae inhibitors. Also seems like she is tachycardic at times. We will do IV Lopressor 5 mg 1 and monitor Qualifiers: Hypertension type: essential hypertension Qualified Code(s): I10 - Essential (primary) hypertension - Subjective Interval history: States she is still short of breath. Denies chest pain nausea vomiting diaphoresis fevers chills. - Constitutional Vitals: Temp Pulse Resp BP Pulse Ox 98.6 F 118 18 155/90 93 11/20/16 15:58 11/20/16 15:58 11/20/16 16:08 11/20/16 15:58 11/20/16 16:08 Exam: Gen.: NAD, AAOx3 cardiac: normal +s1/s2, no mrg chest: diffuse expirator wheeze. no rales, rhonci abdomen soft nontender nondistended normal bowel sounds Ext: no edema, no cyanosis Neuro: no new focal deficits Internal Medicine: Result - Labs CBC & Chem 7: 11/20/16 04:09 11/20/16 04:09 Labs: Short CBC 11/20/16 Range/Units 04:09 WBC 7.9 (4.3-11.1) K/mcL Hgb 10.8 L (11.5-15.4) g/dL Hct 37.1 (35.3-44.9) % Plt Count 429 H (140-400) K/mcL Neutrophils # 7.0 (1.6-8.9) K/mcL BMP 11/20/16 04:09 Sodium 138 Potassium 4.2 Chloride 102 Carbon Dioxide 21 BUN 15 Creatinine 0.81 Glucose 340 H Calcium 8.8 Consult Discharge Plan - Plan Referrals: Domitila Lau MD [Primary Care Provider] -
[2016-11-20] MEDS ORDERED: *HR* Metoprolol 5 MG/5 ML VIAL IVP ONE (18:58)
[2016-11-20] MEDS ORDERED: *HR* Metoprolol 5 MG/5 ML VIAL IVP PRN (19:00)
[2016-11-20] MEDS: Ondansetron 4 MG/2 ML VIAL IVP PRN (19:41)
[2016-11-20] MEDS ORDERED: amLODIPine 5 MG TABLET PO SCH (21:00)
[2016-11-20] MEDS ORDERED: *HR* Morphine 2 MG/ML SYRINGE IVP ONE (23:02)
[2016-11-21] MEDS: Insulin LISPRO 300 UNITS/3 ML VIAL SQ SCH ×3 (00:42→07:39)
[2016-11-21] MEDS: Azithromycin 500 MG in D5% in Water 250 ML IVPB SCH (00:44)
[2016-11-21] MEDS: Ipratropium/Albuterol Neb 3 ML IH SCH ×3 (04:05→10:48)
[2016-11-21] MEDS: Ondansetron 4 MG/2 ML VIAL IVP PRN (04:14)
[2016-11-21] MEDS: *HR* OxyCODONE Immed Rel 5 MG TABLET PO PRN (04:14)
[2016-11-21] MEDS: *HR* Heparin 5,000 UNIT/ML VIAL SQ SCH (05:01)
[2016-11-21 07:06] VITALS: BP 133/78
[2016-11-21 07:36] LABS: BUN/Creatinine Ratio 23 (6-26); Blood Urea Nitrogen 16 mg/dL (7-20); Calcium 8.6 mg/dL (8.6-10.8); Carbon Dioxide 27 mEq/L (19-29); Chloride 107 mEq/L (98-109); Glucose 98 mg/dL (70-99); Osmolality,Calculated 295 (280-300); Potassium 3.2 mEq/L (3.5-4.5); Sodium 142 mEq/L (136-145); eGFR For African Americans > 60 (> 60); eGFR For Non-African Americans > 60 (> 60)
[2016-11-21 07:45] LABS: Basophils % 0.4 %; Eosinophils # 0.1 K/mcL (0.0-0.6); Eosinophils % 0.5 %; Hematocrit 31.5 % (35.3-44.9); Hemoglobin 9.6 g/dL (11.5-15.4); Immature Granulocytes % 1.6 % (0-4); Lymphocytes # 2.4 K/mcL (0.6-4.6); Lymphocytes % 24.1 %; Mean Corpuscular HGB Conc 30.5 g/dL (31.6-35.5); Mean Corpuscular Hemoglobin 27.2 pg (28.0-33.3); Mean Corpuscular Volume 89.2 fL (83.0-100.0); Monocytes # 0.9 K/mcL (0.0-1.3); Monocytes % 8.6 %; Neutrophils # 6.4 K/mcL (1.6-8.9); Platelet Count 416 K/mcL (140-400); Red Blood Count 3.53 M/mcL (3.82-4.97); Red Cell Distribution Width 15.6 % (11.5-14.5); Segmented Neutrophils % 64.8 %
[2016-11-21] MEDS: clonazePAM 1 MG TABLET PO SCH (10:08)
[2016-11-21] MEDS: Magnesium Oxide 400 MG TABLET PO SCH (10:08)
[2016-11-21] MEDS: (Roflumilast [Daliresp] 500 MCG) PO SCH (10:09)
[2016-11-21] MEDS: predniSONE 20 MG TABLET PO SCH (10:09)
--- NOTE | 2016-11-21 10:34 | Discharge Summary ---
Date of Encounter: 11/21/16 Time of Encounter: 10:28 - Discharge Diagnosis (1) Acute exacerbation of chronic obstructive airways disease Priority: Primary Status: Acute (2) Diabetes mellitus Priority: Secondary Status: Chronic Qualifiers: Diabetes mellitus type: type 2 Diabetes mellitus complication status: with hyperglycemia Diabetes mellitus jail insulin use: with jail use Qualified Code(s): E11.65 - Type 2 diabetes mellitus with hyperglycemia; Z79.4 - longterm (current) 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 (3) Hypertension Priority: Secondary Status: Chronic Qualifiers: Hypertension type: essential hypertension Qualified Code(s): I10 - Essential (primary) hypertension - Discharge Medications Prescriptions: predniSONE [PredniSONE] 40 mg PO DAILY #5 tablet Home Medications: cloNIDine HCl [Clonidine HCl] 0.3 mg PO QID 05/16/16 [History] Oxygen 3 l AER CONT 07/19/16 [History] clonazePAM [Klonopin] 1 mg PO BID 07/31/16 [History] Insulin Glargine [Lantus] 0 unit SQ HS PRN 08/10/16 [History] Insulin LISPRO [HumaLOG] 0 - 10 units SQ TIDWM PRN 08/10/16 [History] Roflumilast [Daliresp] 500 mcg PO DAILY 08/10/16 [History] amLODIPine [Norvasc] 5 mg PO HS #30 tab 09/30/16 [Rx] Albuterol Sulfate [Ventolin Hfa] 2 puff IH Q4H PRN #1 inh 10/15/16 [Rx] Budesonide/Formoterol 160/4.5 [Symbicort 160/4.5] 2 puff IH BIDR #1 inh [Rx] Furosemide [Lasix] 40 mg PO DAILY #30 tab 10/28/16 [Rx] Metoprolol [Lopressor] 25 mg PO BID #60 tab 10/28/16 [Rx] Simvastatin [Zocor] 40 mg PO HS #30 tab 10/28/16 [Rx] Promethazine [Phenergan] 25 mg PO Q6HR #28 tablet 11/06/16 [Rx] Magnesium Oxide [Mag-Ox] 400 mg PO DAILY 11/07/16 [History] Ondansetron [Zofran] 4 mg PO Q6HR PRN #120 tab 11/10/16 [Rx] Pantoprazole Sodium [Protonix] 40 mg PO BIDWM #60 tablet. 11/10/16 [Rx] Ipratropium/Albuterol Neb [Duoneb] 3 ml IH Q4HR 11/20/16 [History] Mag Hydrox/Al Hydrox/Simeth [Maalox] 30 ml PO TID PRN 11/20/16 [History] OxyCODONE Immed Rel [Roxicodone 5 MG] 5 mg PO Q6HR PRN 11/20/16 [History] Ranitidine HCl [Zantac] 150 mg PO BID 11/20/16 [History] Sucralfate [Carafate] 1 gm PO BID 11/20/16 [History] predniSONE [PredniSONE] 40 mg PO DAILY #5 tablet 11/21/16 [Rx] Allergies/Adverse Reactions: 3 Allergy/AdvReac Type Severity Reaction Status Date / Time NSAIDS (Non-Steroidal Allergy Unknown See Verified 11/20/16 11:49 Anti-Inflamma Comments Penicillins Allergy Unknown Hives Verified 11/20/16 11:49 lisinopril AdvReac Cough Verified 11/20/16 11:49 tramadol AdvReac Nausea Verified 11/20/16 11:49 Date of admission: 11/19/16 23:05 Primary care physician: Domitila Lau MD Discharging clinician: Avtar Monzon - Patient Status Disposition: Left Against Medical Advice Condition: Fair Overall status at discharge: patient is back to baseline - Discharge Instructions Follow Up With: Domitila Lau MD [Primary Care Provider] - - Diet and Activity Activity: resume usual activities as tolerated Diet: low salt diet Interval History: Ms. Ren is a 56 year old female with history of COPD on 3 L home oxygen and hospitalization almost monthly for COPD exacerbations presented emergency room today with a complete shortness of breath. Over the past couple days patient has been noticing progressive shortness of breath to the point where she short of breath at rest she has been having increased cough compared to baseline no significant sputum production. She uses her nebulizer every 4 hours. She mentioned that she preferred to come to the emergency room despite only mild worsening of her symptoms. She denies any fevers or chills. No chest pain. No lower extremity swelling orthopnea or paroxysmal nocturnal Dyspnea. Hospital course: Started on oral prednisone 40 mg, with oral nebulizer treatment, and azithromycin for acute bronchitis. Did not require an increase in her home oxygen level, which is 3 L. She had no acute events while being monitored. She did complain of abdominal pain attributed to peptic ulcer disease, and request IV morphine. Her abdomen was soft, non-distended, and had no rigidity or rebound tenderness, no guarding. I do not feel IV morphine was appropriate in this case and was not given. The patient left AMA because of not treating her PUD pain with morphine. Risks of leaving while having COPD exacerbation was explained to patient. She was discharged with 4 days worth of Prednisone 40 mg to complete a 5 day burst, and a z-kamron. - Time Spent with Patient Total time spent providing and/or coordinating discharge services: - Constitutional Vitals: Temp Pulse Resp BP Pulse Ox 98.9 F 105 16 133/78 95 11/21/16 07:01 11/21/16 07:01 11/21/16 07:01 11/21/16 07:01 11/21/16 07:01 Exam: Gen.: AAOx3 Cardiac: RRR, normal S1 S2 no additional sounds or murmurs chest: CTAB, good air exchange throughout, improved since yesterday's exam. no rales Abdomen: soft nontender nondistended normal bowel sounds, no rebound tenderness , no rigidity. Ext: lower extremity no swelling, no cyanosis Neuro: no new focal deficits
[2016-11-21] MEDS: Budesonide/Formoterol 160/4.5 MDI IH SCH (10:48)
--- NOTE | 2016-11-21 17:57 | Electrocardiograph Report ---
[address] [place] [address] Test Date: 2016-11-19 Pat Name: Nora Ren Department: 103 Room: 3B38 Gender: F Ash Handler: YARA : 1960 Requested By: Betsey Hughes Order Number: [id number] Reading MD: Low Cordova MD Measurements Intervals [place] Rate: 131 P: 65 HI: 144 QRS: 62 QRSD: 85 T: 28 QT: 293 QTc: 370 Interpretive Statements SINUS TACHYCARDIA WITH OCCASIONAL VENTRICULAR PREMATURE COMPLEXES Poor R wave progression Electronically Signed On 11-21-2016 17:55:49 EDT by Low Cordova MD
== END 2016-11-21 11:40 | disposition left against medical advice (07) ==
LOC: 3ANU 20:16 → EMEROO 20:16 → SUATTDRO 23:05 → 3BNU 23:06
PROVIDERS: ADMIT Hospitalist; ATTEND Student in an Organized Health Care Education/Training Program

== ENCOUNTER 2017-01-16 13:29 | Inpatient (IN) ==
[2017-01-16] MEDS ORDERED: methylPREDNISolone 125 MG/2 ML VIAL IVP ONE (13:46)
[2017-01-16] MEDS ORDERED: Ipratropium/Albuterol Neb 3 ML IH ONE (13:46)
--- NOTE | 2017-01-16 13:49 | Emergency Department Note ---
Disposition Clinical Impression: COPD (chronic obstructive pulmonary disease) Qualifiers: COPD type: COPD with acute exacerbation Qualified Code(s): J44.1 - Chronic obstructive pulmonary disease with (acute) exacerbation Hypertension Qualifiers: Hypertension type: essential hypertension Qualified Code(s): I10 - Essential ( primary) hypertension Disposition: Admitted As Inpatient Condition: Fair Referrals: Domitila Lau MD [Primary Care Provider] - Forms: ED Satisfaction Letter Time of Disposition: 15:45 SOB HPI - General Chief Complaint: ED Shortness of Breath/Dyspnea Stated Complaint: LESTER Time Seen by Provider: 01/16/17 13:43 Source: patient Mode of arrival: ambulatory Limitations: no limitations Nursing Notes Reviewed: Yes Vital Signs Reviewed: Yes - History of Present Illness 56-year-old who comes in complaining of increasing shortness of breath. Patient has a history of COPD and states she's been more short of breath over the last couple of days. 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 (ago): day(s) Context: recent illness Severity: moderate Consistency/Duration: constant Improves with: nothing Worsens with: exertion Known history of: COPD Treatment prior to arrival: none Cough present: Yes Cough Description: Involuntary Cough Frequency: Intermittent - Related Data Home Medications Medication Instructions Recorded Confirmed cloNIDine HCl [Clonidine HCl] 0.3 mg PO QID 05/16/16 01/12/17 Oxygen 3 l AER CONT 07/19/16 01/12/17 clonazePAM [Klonopin] 1 mg PO BID 07/31/16 01/12/17 Insulin Glargine [Lantus] 40 unit SQ HS PRN 08/10/16 01/12/17 Insulin LISPRO [HumaLOG] 0 - 10 units SQ TIDWM PRN 08/10/16 01/12/17 Roflumilast [Daliresp] 500 mcg PO DAILY 08/10/16 01/12/17 Ipratropium/Albuterol Neb [Duoneb] 3 ml IH Q4HR 11/20/16 01/12/17 OxyCODONE Immed Rel [Roxicodone 5 5 mg PO Q6HR PRN 11/20/16 01/12/17 MG] Ranitidine HCl [Zantac] 150 mg PO BID 11/20/16 01/12/17 Sucralfate [Carafate] 1 gm PO DAILY 11/20/16 01/12/17 Aspirin [Lo-Dose Aspirin EC] 81 mg PO DAILY 01/12/17 01/12/17 Previous Rx's Medication Instructions Recorded amLODIPine [Norvasc] 5 mg PO HS #30 tab 09/30/16 Albuterol Sulfate [Ventolin Hfa] 2 puff IH Q4H PRN #1 inh 10/15/16 Budesonide/Formoterol 160/4.5 2 puff IH BIDR #1 inh 10/15/16 [Symbicort 160/4.5] Furosemide [Lasix] 40 mg PO DAILY #30 tab 10/28/16 Ondansetron [Zofran] 4 mg PO Q6HR PRN #120 tab 11/10/16 Pantoprazole Sodium [Protonix] 40 mg PO BIDWM #60 tablet. 11/10/16 Azithromycin [Azithromycin 6-Tab 250 mg PO PER PKG DI #6 tab 01/12/17 Pack] PredniSONE [Deltasone] 20 mg PO BID #10 tablet 01/12/17 Allergies Allergy/AdvReac Type Severity Reaction Status Date / Time NSAIDS (Non-Steroidal Allergy Unknown See Verified 01/16/17 13:40 Anti-Inflamma Comments Penicillins Allergy Unknown Hives Verified 01/16/17 13:40 lisinopril AdvReac Cough Verified 01/16/17 13:40 tramadol AdvReac Nausea Verified 01/16/17 13:40 Constitutional: Denies: fever, chills, weakness, weight change Eyes: Denies: eye pain, eye discharge, vision change ENT ED: Denies: ear pain, throat pain, dental pain, hearing loss, epistaxis, congestion, dysphagia Cardiovascular: Denies: chest pain, palpitations, dyspnea on exertion, edema, syncope Respiratory: Reports: cough, dyspnea, wheezes. Denies: hemoptysis, stridor Gastrointestinal: Denies: abdominal pain, nausea, vomiting, diarrhea, constipation, hematemesis, melena, hematochezia Genitourinary: Denies: dysuria, frequency, hematuria, discharge Musculoskeletal: Denies: back pain, neck pain, arthralgia, myalgia Integumentary: Denies: rash, abrasion, lesions Neurological: Denies: headache, weakness, numbness, paresthesias, confusion, abnormal gait, vertigo Psychiatric: Denies: anxiety, depression, suicidal thoughts, homicidal thoughts , auditory hallucinations, visual hallucinations Endocrine: Denies: fatigue Hematological/Lymphatic: Denies: easy bleeding, easy bruising Allergic/Immunologic: Denies: facial swelling, urticaria Past Medical History - Past Medical History Medical history: Reports: asthma, CHF, COPD, diabetes, GERD, hyperlipidemia, hypertension, renal disease Surgical history: Reports: appendectomy, cholecystectomy, knee replacement, other Psychiatric history: Reports: anxiety 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 , other - Social History Smoking Status: Former smoker Smokeless Tobacco Status: No Alcohol use: Reports: none Drug use: Reports: none Physical Exam - General Limitations: no limitations General appearance: alert, in no apparent distress - Head Head exam: atraumatic, normocephalic, normal inspection - Eye Eye exam: Present: normal appearance, PERRL, EOMI - ENT ENT exam: normal exam, normal oropharynx, mucous membranes moist - Neck Neck exam: Present: normal inspection, full ROM, trachea midline - Chest Chest inspection: Present: normal inspection, symmetric chest wall rise - Respiratory Respiratory exam: Present: wheezes, accessory muscle use, prolonged expiratory phase - Cardiovascular Cardiovascular exam: Present: regular rate, normal rhythm, normal heart sounds - Abdominal Exam Abdominal exam: Present: soft, Non-Tender. Absent: tenderness, distention, guarding, rebound, rigidity - Extremities Exam Extremities exam: Present: normal inspection, full ROM. Absent: tenderness, pedal edema - Expanded Lower Extremity Exam Neurovascular/Tendon exam: Absent: motor deficit, sensory deficit, tendon deficit Gait: observed and normal - Back Exam Back exam: Present: normal inspection, full ROM. Absent: tenderness - Neurological Exam Neurological exam: Present: alert - Psychiatric Psychiatric exam: Present: normal affect, normal mood - Skin Skin exam: Present: warm, dry, intact, normal color Course - Reevaluation(s) Reevaluation #1: 56-year-old with history COPD comes in with increasing shortness of breath. Patient breathing treatments continued to have some wheezing. Time: 14:05 - Consultations Consultation #1: Discussed with Dr. Blank. Time: 14:05 Vital Signs Temperature 98.2 F 01/16/17 13:39 Pulse Rate 101 01/16/17 13:39 Respiratory Rate 18 01/16/17 13:39 Blood Pressure 171/109 01/16/17 13:39 O2 Sat by Pulse Oximetry 94 01/16/17 13:39 Temperature 98.2 F 01/16/17 13:39 Pulse Rate 119 01/16/17 15:04 Respiratory Rate 12 01/16/17 15:04 Blood Pressure 197/128 01/16/17 15:04 O2 Sat by Pulse Oximetry 97 01/16/17 15:04 Oxygen Delivery Oxygen Delivery Nasal Cannula Shortness of Breath/Dyspnea - Lab Data Result diagrams: 01/16/17 14:07 01/16/17 14:07 Lab Results 01/16/17 01/16/17 01/16/17 Range/Units 14:07 14:07 14:07 WBC 11.4 H (4.3-11.1) K/mcL RBC 3.86 (3.82-4.97) M/mcL Hgb 9.9 L (11.5-15.4) g/dL Hct 33.0 L (35.3-44.9) % MCV 85.5 (83.0-100.0) fL MCH 25.6 L (28.0-33.3) pg MCHC 30.0 L (31.6-35.5) g/dL RDW 16.6 H (11.5-14.5) % Plt Count 559 H (140-400) K/mcL MPV 9.9 (9.4-12.4) fL Immature Gran % 1.9 (0-4) % Seg Neutrophils % 58.6 % Lymphocytes % 30.0 % Monocytes % 6.6 % Eosinophils % 2.5 % Basophils % 0.4 % Neutrophils # 6.7 (1.6-8.9) K/mcL Lymphocytes # 3.4 (0.6-4.6) K/mcL Monocytes # 0.8 (0.0-1.3) K/mcL Eosinophils # 0.3 (0.0-0.6) K/mcL Basophils # 0.1 (0.0-0.2) K/mcL Nucleated RBCs/100 WBC 0.4 H (0) /100 WBC Sodium 142 (136-145) mEq/L Potassium 3.3 L (3.5-4.5) mEq/L Chloride 100 (98-109) mEq/L Carbon Dioxide 31 H (19-29) mEq/L BUN 25 H (7-20) mg/dL Creatinine 0.92 (0.57-1.11) mg/dL Est GFR ( Amer) > 60 (> 60) Est GFR (Non-Af Amer) > 60 (> 60) BUN/Creatinine Ratio 27 H (6-26) Glucose 140 H (70-99) mg/dL Calculated Osmolality 301 H (280-300) Lactic Acid 1.5 (0.5-2.2) mmol/L Calcium 8.8 (8.6-10.8) mg/dL Troponin I (0-0.03) ng/mL B-Natriuretic Peptide (0-100) pg/mL 01/16/17 01/16/17 Range/Units 14:07 14:07 WBC (4.3-11.1) K/mcL RBC (3.82-4.97) M/mcL Hgb (11.5-15.4) g/dL Hct (35.3-44.9) % MCV (83.0-100.0) fL MCH (28.0-33.3) pg MCHC (31.6-35.5) g/dL RDW (11.5-14.5) % Plt Count (140-400) K/mcL MPV (9.4-12.4) fL Immature Gran % (0-4) % Seg Neutrophils % % Lymphocytes % % Monocytes % % Eosinophils % % Basophils % % Neutrophils # (1.6-8.9) K/mcL Lymphocytes # (0.6-4.6) K/mcL Monocytes # (0.0-1.3) K/mcL Eosinophils # (0.0-0.6) K/mcL Basophils # (0.0-0.2) K/mcL Nucleated RBCs/100 WBC (0) /100 WBC Sodium (136-145) mEq/L Potassium (3.5-4.5) mEq/L Chloride (98-109) mEq/L Carbon Dioxide (19-29) mEq/L BUN (7-20) mg/dL Creatinine (0.57-1.11) mg/dL Est GFR ( Amer) (> 60) Est GFR (Non-Af Amer) (> 60) BUN/Creatinine Ratio (6-26) Glucose (70-99) mg/dL Calculated Osmolality (280-300) Lactic Acid (0.5-2.2) mmol/L Calcium (8.6-10.8) mg/dL Troponin I 0.01 (0-0.03) ng/mL B-Natriuretic Peptide 104 H (0-100) pg/mL - EKG Data EKG attestation: Yes I reviewed and interpreted this EKG. EKG shows normal: Reports: sinus rhythm Rate: Reports: tachycardia (112) Rhythm: Reports: NSR Interpretation: Reports: no acute changes
[2017-01-16 14:20] LABS: Basophils # 0.1 K/mcL (0.0-0.2); Basophils % 0.4 %; Eosinophils # 0.3 K/mcL (0.0-0.6); Eosinophils % 2.5 %; Hemoglobin 9.9 g/dL (11.5-15.4); Immature Granulocytes % 1.9 % (0-4); Lymphocytes # 3.4 K/mcL (0.6-4.6); Mean Corpuscular Hemoglobin 25.6 pg (28.0-33.3); Mean Corpuscular Volume 85.5 fL (83.0-100.0); Mean Platelet Volume 9.9 fL (9.4-12.4); Monocytes # 0.8 K/mcL (0.0-1.3); Monocytes % 6.6 %; Neutrophils # 6.7 K/mcL (1.6-8.9); Nucleated Red Blood Cells 0.4 /100 WBC (0); Platelet Count 559 K/mcL (140-400); Red Blood Count 3.86 M/mcL (3.82-4.97); Red Cell Distribution Width 16.6 % (11.5-14.5); Segmented Neutrophils % 58.6 %
[2017-01-16 14:31] LABS: BUN/Creatinine Ratio 27 (6-26); Blood Urea Nitrogen 25 mg/dL (7-20); Calcium 8.8 mg/dL (8.6-10.8); Carbon Dioxide 31 mEq/L (19-29); Chloride 100 mEq/L (98-109); Glucose 140 mg/dL (70-99); Osmolality,Calculated 301 (280-300); Potassium 3.3 mEq/L (3.5-4.5); Sodium 142 mEq/L (136-145); eGFR For African Americans > 60 (> 60); eGFR For Non-African Americans > 60 (> 60)
[2017-01-16] MEDS ORDERED: *HR* HYDROmorphone (PF) 1 MG/ML SYRINGE IVP ONE (14:35)
[2017-01-16] MEDS ORDERED: Ondansetron 4 MG/2 ML VIAL IVP ONE (14:35)
--- NOTE | 2017-01-16 17:38 | Internal Med History&Physical ---
Date of Encounter: 01/17/17 Time of Encounter: 17:32 Assessment and Plan (1) Acute exacerbation of chronic obstructive airways disease Current visit: Yes Status: Acute 56/female Known case of COPD. Failed outpatient antibiotic treatment for COPD exacerbation. Admitted with acute exacerbation of chronic obstructive airways disease. She has bilateral polyphonic wheeze. Accessory muscles of respiration++ Plan: Admit as inpatient: Intravenous levofloxacin 750 mg every 24 hours. Intravenous Solu-Medrol 40 mg every 8 hours. Initially DuoNeb every 4 hours. Close monitoring of the respiratory status. We will cycle troponin. Diabetic diet. I have examined this patient in 2A33 along with RN Lily I have explained patient the plan of treatment. I have answered all her questions. (2) Diabetes mellitus Current visit: No Status: Chronic We will hold oral hypoglycemic agents. We will follow the subcutaneous insulin order set and the recommendations according to order set. Qualifiers: Diabetes mellitus type: type 2 Diabetes mellitus complication status: with hyperglycemia Diabetes mellitus residence leasing agent insulin use: with longterm use Qualified Code(s): E11.65 - Type 2 diabetes mellitus with hyperglycemia; Z79.4 - shelter (current) 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; Z79.4 - shelter (current) 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 ; Z79.4 - shelter (current) 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; Z79.4 - shelter (current) 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 (3) HLD (hyperlipidemia) Current visit: No Status: Chronic We will resume home medications. Qualifiers: Hyperlipidemia type: pure hypercholesterolemia Qualified Code(s): E78.00 - Pure hypercholesterolemia, unspecified; E78.0 - Pure hypercholesterolemia (4) Hypertension Current visit: No Status: Chronic Blood pressure is at this point within acceptable range. We will resume home medication. Qualifiers: Hypertension type: essential hypertension Qualified Code(s): I10 - Essential (primary) hypertension (6) DVT prophylaxis Current visit: No Status: Acute SCD Medical decision making: This patient has a moderate to severe risk of worsening in spite of of being on appropriate medications due to the multiple chronic comorbidities issues Internal Medicine - H&P: HPI Chief complaint: Shortness of breath Admitted From: Emergency Dept Plans for Post Hospital Care: Home History of present illness: Ms. Ren is a 56 year old female his primary care physician is Dr. Lau. Patient has background medical history of diabetes, hypertension, hyperlipidemia, chronic kidney disease, COPD, congestive heart failure. Patient had previously appendicectomy, cholecystectomy and knee replacement. She stopped smoking April 2016.Patient complains that past 3 days she was started getting more cough and shortness of breath than what she usually used to have. She noted that the color of the sputum has changed from clear to white to lightish green. Patient claims that her shortness of breath more concern to her than her cough. Patient claims that her shortness of breath is so severe that she cannot walk even 5-7 steps. Patient was recently seen by provider and was started on azithromycin as outpatient treatment. As per patient this azithromycin and other medications did not help her at all and she came back today as she was more short of breath.Patient denies chest pain, abdominal pain , nausea, vomiting, diarrhea and dizziness. Patient was evaluated in the emergency room. Basic labs were drawn. Noted that patient had elevated white blood cell count along with low potassium and normal renal function. Reason for admission: COPD exacerbation/failed outpatient antibiotic treatment/ close respiratory status observation with intravenous antibiotics. Past Med Surg Social Fam HX - Past Medical History Medical history: asthma, CHF, COPD, diabetes, GERD, hyperlipidemia, hypertension , renal disease Psychiatric history: anxiety - Past Surgical History Surgical History: appendectomy, cholecystectomy, knee replacement, other - Social History Smoking Status: Former smoker Smokeless Tobacco Status: No Alcohol use: none Drug use: none - Family History Father Family Member Ethnicity: Non- Living Status: Hx Family Cardiac Disorders: Yes (Atheroslcerosis) Mother Family Member Ethnicity: Non- Living Status: Still Living Hx Family Cardiac Disorders: Yes (HTN) Hx Family Respiratory Disorders: No Hx Family Cancer: No Hx Family GI Disorders: No Hx Family Endocrine Disorder: Yes (DM) Hx Family Neuromuscular Disorders: No Hx Family Neurologic Disorders: No Hx Family HEENT Disorders: No Hx Family Autoimmune Disorders: No Internal Medicine - H&P: Meds cloNIDine HCl [Clonidine HCl] 0.3 mg PO QID 05/16/16 [History] Oxygen 3 l AER CONT 07/19/16 [History] clonazePAM [Klonopin] 1 mg PO BID 07/31/16 [History] Insulin Glargine [Lantus] 36 unit SQ HS 08/10/16 [History] Insulin LISPRO [HumaLOG] 2 - 10 units SQ TIDWM PRN 08/10/16 [History] Roflumilast [Daliresp] 500 mcg PO DAILY 08/10/16 [History] amLODIPine [Norvasc] 5 mg PO HS #30 tab 09/30/16 [Rx] Albuterol Sulfate [Ventolin Hfa] 2 puff IH Q4H PRN #1 inh 10/15/16 [Rx] Furosemide [Lasix] 40 mg PO DAILY #30 tab 10/28/16 [Rx] Ondansetron [Zofran] 4 mg PO Q6HR PRN #120 tab 11/10/16 [Rx] Pantoprazole Sodium [Protonix] 40 mg PO BIDWM #60 tablet. 11/10/16 [Rx] Ipratropium/Albuterol Neb [Duoneb] 3 ml IH Q4HR 11/20/16 [History] OxyCODONE Immed Rel [Roxicodone 5 MG] 5 mg PO Q6HR PRN 11/20/16 [History] Ranitidine HCl [Zantac] 150 mg PO BID 11/20/16 [History] Aspirin [Lo-Dose Aspirin EC] 81 mg PO DAILY 01/12/17 [History] Azithromycin [Azithromycin 6-Tab Pack] 250 mg PO PER PKG DI #6 tab 01/12/17 [Rx] PredniSONE [Deltasone] 20 mg PO BID #10 tablet 01/12/17 [Rx] Loratadine [Allergy Relief] 10 mg PO DAILY 01/16/17 [History] Losartan/Hydrochlorothiazide [Losartan-Hctz 100-25 mg Tab] 1 tab PO DAILY [History] Magnesium Oxide [Mag-Ox] 400 mg PO DAILY 01/16/17 [History] Meclizine [Antivert] 25 mg PO TID 01/16/17 [History] Montelukast [Singulair] 10 mg PO DAILY 01/16/17 [History] Tiotropium [Spiriva] 18 mcg IH DAILY 01/16/17 [History] 3 Allergy/AdvReac Type Severity Reaction Status Date / Time NSAIDS (Non-Steroidal Allergy Unknown See Verified 01/16/17 13:40 Anti-Inflamma Comments Penicillins Allergy Unknown Hives Verified 01/16/17 13:40 lisinopril AdvReac Cough Verified 01/16/17 13:40 tramadol AdvReac Nausea Verified 01/16/17 13:40 All Systems PM: A 10-system review of systems was performed and is negative for pertinent findings except as documented above in the HPI. - Constitutional Constitutional: no chills, no fever(s), no night sweats - EENT Eyes: no change in vision, no discharge, no pain, no photophobia Ears: no ear discharge, no ear pain, no tinnitus Nose, mouth and throat: no dysphagia, no nasal discharge, no neck pain, no sore throat - Cardiovascular Cardiovascular ROS IM: diaphoresis, dyspnea, lightheadedness, no chest pain, no palpitations, no syncope - Respiratory Respiratory: cough, dyspnea, dyspnea on exertion, excessive phlegm production, change in phlegm color, pain with cough, no wheezing - Gastrointestinal Gastrointestinal: no abdominal pain, no diarrhea, no hematemesis, no hematochezia, no melena, no nausea, no vomiting - Genitourinary Genitourinary: no change in urinary stream, no dysuria, no flank pain, no hematuria - Musculoskeletal Musculoskeletal ROS IM: no numbness, no tingling - Integumentary Integumentary IM: no rash, no unusual bruising - Neurological Neurological ROS: no confusion, no convulsions, no focal weakness, no numbness, no tingling, no tremor(s) - Hematologic/Lymphatic Hematologic/Lymphatic: no easy bruising - Constitutional Vitals: Temp Pulse Resp BP Pulse Ox 97.3 F L 108 17 171/105 91 01/16/17 16:48 01/16/17 16:48 01/16/17 16:48 01/16/17 16:48 01/16/17 16:48 General appearance: Present: A&O X 3, pleasant, no acute distress, answers questions appropriately - Head Head exam: Present: atraumatic, normocephalic - Eye Eye exam: Present: PERRL, conjuntiva pink, sclera anicteric Pupils: Present: PERRL - Neck Neck exam general surgery: Present: supple, trachea midline. Absent: lymphadenopathy - Respiratory Respiratory exam: Present: accessory muscle use, CTAB, rhonchi, wheezes. Absent : rales - Cardiovascular Cardiovascular exam: Present: RRR, +S1, +S2. Absent: diastolic murmur, gallop, rubs, systolic murmur - GI/Abdominal GI/Abdominal exam: Present: normal bowel sounds, soft, no peritoneal signs. Absent: distended, tenderness - Extremities Exam Extremities exam: Present: warm, radial pulses palpable and symmetrical. Absent : calf tenderness, cyanotic, pedal edema - Neurological Exam Neurological exam: Present: CN II-XII intact, oriented X3, no focal deficits. Absent: pronater drift, facial droop, speech deficit - Skin Skin exam: Present: dry, intact Internal Med - H&P Results - Labs CBC & Chem 7: 01/17/17 05:45 01/17/17 05:45
[2017-01-16] MEDS ORDERED: Naloxone 0.4 MG/ML INJ IVP PRN (17:46)
[2017-01-16] MEDS ORDERED: *HR* OxyCODONE Immed Rel 5 MG TABLET PO PRN (17:51)
[2017-01-16] MEDS ORDERED: *HR* Dextrose 50 % in Water (Syg) 50 ML SYRINGE IVP PRN (17:54)
[2017-01-16] MEDS ORDERED: D5% in Water 1,000 ML IVC PRN ×2 (17:54→20:11)
[2017-01-16] MEDS ORDERED: Dextrose Gel 15 GM PO PRN ×2 (17:54)
[2017-01-16] MEDS ORDERED: NON-FORMULARY MEDICATION 1 EACH EACH (Oxygen [Oxygen] 3 L) AER SCH (18:00)
[2017-01-16] MEDS: Insulin LISPRO 300 UNITS/3 ML VIAL SQ SCH ×2 (20:09→20:58)
[2017-01-16] MEDS: *HR* Morphine 2 MG/ML SYRINGE IVP PRN (20:36)
[2017-01-16] MEDS: clonazePAM 1 MG TABLET PO SCH (20:40)
[2017-01-16] MEDS: amLODIPine 5 MG TABLET PO SCH (20:40)
[2017-01-16] MEDS: cloNIDine HCl 0.1 MG TABLET PO SCH (20:40)
[2017-01-16] MEDS: Levofloxacin 500 MG/100 ML 500 MG/100 ML BAG IVPB SCH (20:40)
[2017-01-16] MEDS: Insulin DETEMIR 100 UNIT/ML X5UNITS SQ SCH (20:43)
[2017-01-16] MEDS: Ipratropium/Albuterol Neb 3 ML IH SCH ×2 (21:59→23:29)
[2017-01-17] MEDS: MethylPREDNISolone 40 MG/ML VIAL IVP SCH ×4 (00:41→23:50)
[2017-01-17] MEDS: *HR* Morphine 2 MG/ML SYRINGE IVP PRN ×4 (02:36→21:57)
[2017-01-17] MEDS: Ipratropium/Albuterol Neb 3 ML IH SCH ×5 (05:12→20:35)
[2017-01-17 05:53] LABS: Hematocrit 31.1 % (35.3-44.9); Hemoglobin 9.4 g/dL (11.5-15.4); Immature Granulocytes % 1.4 % (0-4); Lymphocytes % 8.2 %; Mean Corpuscular HGB Conc 30.2 g/dL (31.6-35.5); Mean Corpuscular Hemoglobin 25.6 pg (28.0-33.3); Mean Corpuscular Volume 84.7 fL (83.0-100.0); Mean Platelet Volume 9.9 fL (9.4-12.4); Monocytes % 1.4 %; Platelet Count 496 K/mcL (140-400); Red Blood Count 3.67 M/mcL (3.82-4.97); Segmented Neutrophils % 88.8 %
[2017-01-17 05:54] LABS: Basophils % 0.2 %; Lymphocytes # 0.8 K/mcL (0.6-4.6); Monocytes # 0.1 K/mcL (0.0-1.3); Neutrophils # 8.3 K/mcL (1.6-8.9); Nucleated Red Blood Cells 0.6 /100 WBC (0)
[2017-01-17 06:01] LABS: INR 1.1; Prothrombin Time 11.3 Seconds (9.4-12.1)
[2017-01-17 06:11] LABS: Alanine Aminotransferase 21 Units/L (0-55); Albumin/Globulin Ratio 0.9 (1.1-2.2); Alkaline Phosphatase 100 Units/L (38-126); Aspartate Amino Transferase 11 Units/L (5-34); BUN/Creatinine Ratio 27 (6-26); Bilirubin,Total 0.2 mg/dL (0.2-1.2); Blood Urea Nitrogen 27 mg/dL (7-20); Calcium 9.2 mg/dL (8.6-10.8); Carbon Dioxide 32 mEq/L (19-29); Chloride 97 mEq/L (98-109); Chol/HDL Ratio 2.2 (0-4.9); Cholesterol 155 mg/dL (< 200); Globulin 3.3 g/dL (2.4-3.5); Glucose 302 mg/dL (70-99); HDL Cholesterol 71 mg/dL (40-59); LDL Cholesterol,Calculated 62 mg/dL (0-99); Magnesium 1.8 mg/dL (1.6-2.6); Osmolality,Calculated 300 (280-300); Phosphorous 3.2 mg/dL (2.3-4.7); Potassium 4.2 mEq/L (3.5-4.5); Sodium 137 mEq/L (136-145); Total Protein 6.3 g/dL (6.0-8.3); Triglycerides 110 mg/dL (< 150); eGFR For African Americans > 60 (> 60); eGFR For Non-African Americans 57 (> 60)
[2017-01-17] MEDS: clonazePAM 1 MG TABLET PO SCH ×2 (08:41→21:49)
[2017-01-17] MEDS: Losartan/HCTZ 50-12.5 TABLET PO SCH (08:41)
[2017-01-17] MEDS: Aspirin Enteric Coated 81 MG Tablet PO SCH (08:41)
[2017-01-17] MEDS: Insulin LISPRO 300 UNITS/3 ML VIAL SQ SCH ×4 (08:41→21:44)
[2017-01-17] MEDS: Magnesium Oxide 400 MG TABLET PO SCH (08:41)
[2017-01-17] MEDS: Furosemide 40 MG TABLET PO SCH (08:42)
[2017-01-17] MEDS: cloNIDine HCl 0.1 MG TABLET PO SCH ×4 (08:42→21:49)
[2017-01-17] MEDS ORDERED: (Roflumilast [Daliresp] 500 MCG) PO SCH (09:00)
[2017-01-17] MEDS ORDERED: Tiotropium 18 MCG inhalation IH SCH (09:00)
[2017-01-17] MEDS ORDERED: Ondansetron 4 MG/2 ML VIAL IVP PRN (10:42)
--- NOTE | 2017-01-17 11:31 | Electrocardiograph Report ---
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
--- NOTE | 2017-01-17 15:45 | Internal Med Progress Note ---
Date of Encounter: 01/17/17 Time of Encounter: 15:41 - Assessment and plan (1) Acute exacerbation of chronic obstructive airways disease Current Visit: Yes Status: Acute Assessment and plan: Day 2 of hospitalization Day 2 Antibiotics cultures negative so far improving SOB Still wheezing occasionally plan will continue present treatment will taper steroids tomorrow if she improves home soon (2) Diabetes mellitus Current Visit: No Status: Chronic Assessment and plan: blood sugar acceptable level. 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 chart reviewed. she claims that she is feeling better. shortness of breath is getting better denies chest pain. - Constitutional Vitals: Temp Pulse Resp BP Pulse Ox 98.0 F 91 18 135/84 98 01/17/17 11:22 01/17/17 11:22 01/17/17 11:31 01/17/17 11:22 01/17/17 11:31 General appearance: Present: A&O X 3, pleasant, no acute distress, answers questions appropriately - Head Head exam: Present: atraumatic, normocephalic - Eye Eye exam: Present: PERRL, conjuntiva pink, sclera anicteric Pupils: Present: PERRL - Neck Neck exam general surgery: Present: supple, trachea midline. Absent: lymphadenopathy - Respiratory Respiratory exam: Present: CTAB. Absent: accessory muscle use, rales, rhonchi, wheezes - Cardiovascular Cardiovascular exam: Present: RRR, +S1, +S2. Absent: diastolic murmur, gallop, rubs, systolic murmur - GI/Abdominal GI/Abdominal exam: Present: normal bowel sounds, soft, no peritoneal signs. Absent: distended, tenderness - Extremities Exam Extremities exam: Present: warm, radial pulses palpable and symmetrical. Absent : calf tenderness, cyanotic, pedal edema - Neurological Exam Neurological exam: Present: CN II-XII intact, oriented X3, no focal deficits. Absent: pronater drift, facial droop, speech deficit - Skin Skin exam: Present: dry, intact Internal Medicine: Result - Labs CBC & Chem 7: 01/17/17 05:45 01/17/17 05:45 Labs: Short CBC 01/17/17 Range/Units 05:45 WBC 9.4 (4.3-11.1) K/mcL Hgb 9.4 L (11.5-15.4) g/dL Hct 31.1 L (35.3-44.9) % Plt Count 496 H (140-400) K/mcL Neutrophils # 8.3 (1.6-8.9) K/mcL BMP 01/17/17 05:45 Sodium 137 Potassium 4.2 Chloride 97 L Carbon Dioxide 32 H BUN 27 H Creatinine 1.00 Glucose 302 H Calcium 9.2 Cardiac Enzymes 01/16/17 01/17/17 01/17/17 Range/Units 18:08 00:01 05:45 Troponin I 0.01 0.00 0.00 (0-0.03) ng/mL Liver Function 01/17/17 Range/Units 05:45 Total Bilirubin 0.2 (0.2-1.2) mg/dL AST 11 (5-34) Units/L ALT 21 (0-55) Units/L Alkaline Phosphatase 100 (38-126) Units/L Albumin 3.0 L (3.5-5.0) g/dL - ABG Interpretation ABG results: PT/INR, D-dimer PT 11.3 Seconds (9.4-12.1) 01/17/17 05:45 Consult Discharge Plan - Plan Referrals: Domitila Lau MD [Primary Care Provider] -
[2017-01-17] MEDS: Levofloxacin 500 MG/100 ML 500 MG/100 ML BAG IVPB SCH (17:11)
[2017-01-17] MEDS: amLODIPine 5 MG TABLET PO SCH (21:50)
[2017-01-17] MEDS: Insulin DETEMIR 100 UNIT/ML X5UNITS SQ SCH (21:56)
[2017-01-17] MEDS: Ondansetron 4 MG/2 ML VIAL IVP PRN (23:51)
[2017-01-18] MEDS: Ipratropium/Albuterol Neb 3 ML IH SCH ×6 (00:59→21:19)
[2017-01-18] MEDS: *HR* Morphine 2 MG/ML SYRINGE IVP PRN ×4 (05:21→23:59)
[2017-01-18] MEDS: Ondansetron 4 MG/2 ML VIAL IVP PRN ×2 (07:10→14:48)
[2017-01-18] MEDS: cloNIDine HCl 0.1 MG TABLET PO SCH ×4 (08:19→22:41)
[2017-01-18] MEDS: Furosemide 40 MG TABLET PO SCH (08:19)
[2017-01-18] MEDS: Aspirin Enteric Coated 81 MG Tablet PO SCH (08:19)
[2017-01-18] MEDS: clonazePAM 1 MG TABLET PO SCH ×2 (08:19→22:42)
[2017-01-18] MEDS: Magnesium Oxide 400 MG TABLET PO SCH (08:19)
[2017-01-18] MEDS: Losartan/HCTZ 50-12.5 TABLET PO SCH (08:19)
[2017-01-18] MEDS: Insulin LISPRO 300 UNITS/3 ML VIAL SQ SCH ×7 (08:19→22:42)
[2017-01-18] MEDS: MethylPREDNISolone 40 MG/ML VIAL IVP SCH (08:20)
[2017-01-18] MEDS ORDERED: Insulin DETEMIR 100 UNIT/ML X5UNITS SQ ONE (08:44)
--- NOTE | 2017-01-18 09:12 | Internal Med Progress Note ---
<Obed Krause - Last Filed: 01/18/17 16:09> Date of Encounter: 01/18/17 - Constitutional Vitals: Temp Pulse Resp BP Pulse Ox 97.8 F 77 18 125/76 94 01/18/17 10:58 01/18/17 10:58 01/18/17 11:12 01/18/17 10:58 01/18/17 11:12 Internal Medicine: Result - Labs CBC & Chem 7: 01/17/17 05:45 01/17/17 05:45 - ABG Interpretation ABG results: PT/INR, D-dimer PT 11.3 Seconds (9.4-12.1) 01/17/17 05:45 Consult Discharge Plan - Plan Referrals: Domitila Lau MD [Primary Care Provider] - - Attending Attestation I independently saw and examined this patient on 01/18/17, plan of care is as detailed in the resident physician's documentation 56 F with COPDE, Uncontrolled DM She is clinically improving, FS uncontrolled Physical exam unremarkable, good air entry, no wheezes Change meds to oral, adjust insulin, add prandial insulin, check A1C Continue to monitor Rest as in resident physician's documentation <JustoMann - Last Filed: 01/18/17 16:41> Date of Encounter: 01/18/17 Time of Encounter: 09:00 - Assessment and plan (1) Acute exacerbation of chronic obstructive airways disease Current Visit: Yes Status: Acute Assessment and plan: Patient's SOB is improving; mild expiratory wheezes present in the upper lung salazar. CXR performed on 01/16/17 demonstrated no acute findings. Blood CX on 01/16/17 were negative. WC on admission was 11.4; has decreased to 9.4. Plan: -Day 3 of ABX: Levaquin 500mg IV q24 started on 01/06/17; PO form started -Prednisone 20 mg PO BID started 01/18/17; Solu-Medrol discontinued -Singulair 10 mg PO daily -O2 via NC -Patient will likely be discharged soon (2) DM (diabetes mellitus), type 2 Current Visit: No Status: Chronic Assessment and plan: Patient is a known history of type 2 diabetes mellitus. Glucose was elevated this morning at 302. 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 Blood pressure well controlled this morning at 121/78. Plan: Continue home medications -Norvasc 5mg PO HS. -Losartan/HCTZ 50/12.5 2 each PO Daily -Clonidine 0.3 mg PO BID Qualifiers: Hypertension type: essential hypertension Qualified Code(s): I10 - Essential (primary) hypertension (4) DVT prophylaxis Current Visit: No Status: Acute Assessment and plan: SCD - Subjective Interval history: Patient is a 56-year-old female with past medical history of diabetes, hypertension, COPD, and CHF. Presented with cough and shortness of breath 3 days. Sputum color changed from clear to white to light green. Shortness of breath was so severe that she was unable to walk even 5-7 steps. She was recently seen by her primary care provider; started on azithromycin as an outpatient treatment. No improvement. Presented to emergency department on . Elevated white count 11.4, pulse 101, blood pressure 170/109. Chest x- ray performed, demonstrated no acute findings. EKG demonstrated sinus tachycardia. Patient was admitted as an inpatient, started on IV Levaquin, IV Solu-Medrol 40 mg every 8 hours, DuoNeb every 4 hours, close monitoring of respiratory status. Patient was seen and examined at bedside this morning. Patient states that she is feeling better than when she first came to the hospital. She admits that she has had multiple episodes similar to her current presentation. Patient states that approximately one month ago, she started to feel short of breath and developed a cough. She was admitted to the hospital with COPD exacerbation. She was treated with oxygen and steroids, and recovered shortly thereafter. She reports that her breathing is improved, but she is still not back to baseline. Currently on oxygen via nasal cannula. Denies fever, chills , cough, dyspnea. Patient has no complaints at this time. - Constitutional Vitals: Temp Pulse Resp BP Pulse Ox 97.5 F L 82 17 121/78 95 01/18/17 08:03 01/18/17 08:03 01/18/17 08:03 01/18/17 08:03 01/18/17 08:03 General appearance: Present: A&O X 3, pleasant, no acute distress, answers questions appropriately - Head Head exam: Present: atraumatic, normocephalic - Eye Eye exam: Present: PERRL, conjuntiva pink, sclera anicteric Pupils: Present: PERRL - Neck Neck exam general surgery: Present: supple, trachea midline. Absent: lymphadenopathy - Respiratory Respiratory exam: Present: wheezes. Absent: accessory muscle use, rales, rhonchi Additional comments: Expiratory wheezes present in the upper lung salazar. - Cardiovascular Cardiovascular exam: Present: RRR, +S1, +S2. Absent: diastolic murmur, gallop, rubs, systolic murmur - GI/Abdominal GI/Abdominal exam: Present: normal bowel sounds, soft, no peritoneal signs. Absent: distended, tenderness - Extremities Exam Extremities exam: Present: warm, radial pulses palpable and symmetrical. Absent : calf tenderness, cyanotic, pedal edema - Skin Skin exam: Present: dry, intact Internal Medicine: Result - Labs CBC & Chem 7: 01/17/17 05:45 01/17/17 05:45 - ABG Interpretation ABG results: PT/INR, D-dimer PT 11.3 Seconds (9.4-12.1) 01/17/17 05:45
[2017-01-18] MEDS: levoFLOXacin 500 MG TABLET PO SCH (17:29)
[2017-01-18] MEDS: predniSONE 20 MG TABLET PO SCH (17:29)
[2017-01-18] MEDS: Insulin DETEMIR 100 UNIT/ML X5UNITS SQ SCH (22:42)
[2017-01-18] MEDS: amLODIPine 5 MG TABLET PO SCH (22:42)
[2017-01-19] MEDS: Ipratropium/Albuterol Neb 3 ML IH SCH ×7 (00:16→23:56)
[2017-01-19] MEDS: Ondansetron 4 MG/2 ML VIAL IVP PRN ×3 (01:25→16:34)
[2017-01-19 05:31] LABS: Hematocrit 32.5 % (35.3-44.9); Hemoglobin 9.8 g/dL (11.5-15.4); Mean Corpuscular HGB Conc 30.2 g/dL (31.6-35.5); Mean Corpuscular Hemoglobin 25.7 pg (28.0-33.3); Mean Corpuscular Volume 85.1 fL (83.0-100.0); Mean Platelet Volume 10.2 fL (9.4-12.4); Platelet Count 458 K/mcL (140-400); Red Blood Count 3.82 M/mcL (3.82-4.97); Red Cell Distribution Width 16.6 % (11.5-14.5)
[2017-01-19 05:43] LABS: Hemoglobin A1C 8.2 %
[2017-01-19 05:48] LABS: BUN/Creatinine Ratio 44 (6-26); Calcium 9.1 mg/dL (8.6-10.8); Carbon Dioxide 31 mEq/L (19-29); Chloride 94 mEq/L (98-109); Glucose 204 mg/dL (70-99); Osmolality,Calculated 299 (280-300); Sodium 136 mEq/L (136-145); eGFR For African Americans > 60 (> 60); eGFR For Non-African Americans 59 (> 60)
[2017-01-19 05:49] LABS: Blood Urea Nitrogen 43 mg/dL (7-20)
[2017-01-19] MEDS: Furosemide 40 MG TABLET PO SCH (07:52)
[2017-01-19] MEDS: cloNIDine HCl 0.1 MG TABLET PO SCH ×4 (07:52→20:31)
[2017-01-19] MEDS: predniSONE 20 MG TABLET PO SCH ×2 (07:52→17:21)
[2017-01-19] MEDS: clonazePAM 1 MG TABLET PO SCH ×2 (07:52→20:32)
[2017-01-19] MEDS: Magnesium Oxide 400 MG TABLET PO SCH (07:52)
[2017-01-19] MEDS: Losartan/HCTZ 50-12.5 TABLET PO SCH (07:53)
[2017-01-19] MEDS: *HR* Morphine 2 MG/ML SYRINGE IVP PRN (07:53)
[2017-01-19] MEDS: Aspirin Enteric Coated 81 MG Tablet PO SCH (07:53)
[2017-01-19] MEDS: Insulin LISPRO 300 UNITS/3 ML VIAL SQ SCH ×7 (07:54→20:32)
[2017-01-19] MEDS ORDERED: Acetaminophen 325 MG TABLET PO PRN (09:32)
[2017-01-19] MEDS ORDERED: *HR* OxyCODONE Immed Rel 5 MG TABLET PO PRN (09:37)
[2017-01-19] MEDS: Insulin DETEMIR 100 UNIT/ML X5UNITS SQ SCH (12:13)
--- NOTE | 2017-01-19 15:04 | Internal Med Progress Note ---
<Mann Kemp - Last Filed: 01/19/17 16:16> Date of Encounter: 01/19/17 Time of Encounter: 08:45 - Assessment and plan (1) Acute exacerbation of chronic obstructive airways disease Current Visit: Yes Status: Acute Assessment and plan: Patient's SOB is improving; mild expiratory wheezes present in the upper lung salazar. CXR performed on 01/16/17 demonstrated no acute findings. Blood CX on 01/16/17 were negative. WC on admission was 11.4; has increased today at 15.1. This is possibly secondary to steroids she is getting; we will continue to observe. Plan: -Day 4 of ABX: Levaquin IV was d/c; PO form started 01/18/17 -Prednisone 20 mg PO BID started 01/18/17; Solu-Medrol discontinued -Singulair 10 mg PO daily -O2 via NC -Patient will likely be discharged soon (2) DM (diabetes mellitus), type 2 Current Visit: No Status: Chronic Assessment and plan: Patient is a known history of type 2 diabetes mellitus. Glucose was elevated this morning at 204; improved from 302 yesterday. Plan: -Prandial insulin -Diabetic diet -Glucose checks ACHS Qualifiers: Diabetes mellitus complication status: with ketoacidosis Diabetes mellitus complication detail: without coma Diabetes mellitus technician terminal and repeater insulin use: with detention use Qualified Code(s): E11.10 - Type 2 diabetes mellitus with ketoacidosis without coma; Z79.4 - longterm (current) 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; Z79.4 - longterm (current) 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; Z79.4 - longterm (current) 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; Z79.4 - long term acute care registered nurse (current) 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 (3) Hypertension Current Visit: No Status: Chronic Assessment and plan: Patient has a known history of hypertension. Blood pressure well controlled this morning at 131/79. Plan: Continue home medications -Norvasc 5mg PO HS. -Losartan/HCTZ 50/12.5 2 each PO Daily -Clonidine 0.3 mg PO BID Qualifiers: Hypertension type: essential hypertension Qualified Code(s): I10 - Essential (primary) hypertension (4) Hyperkalemia Current Visit: Yes Status: Acute Assessment and plan: Patient potassium was elevated this morning at 5.0. -Unknown etiology. -Repeat a.m. labs; observe. (5) Sore throat Current Visit: Yes Status: Acute Assessment and plan: Patient complaining of sore throat this morning. -Cepacol Lozenge has been ordered. (6) DVT prophylaxis Current Visit: No Status: Acute Assessment and plan: SCD - Subjective Interval history: Patient seen and examined at bedside this morning. She reports that she has a sore throat this morning. No redness, sinus symptoms, or lymphadenopathy is present. Lozenges were ordered. Patient is not complaining of shortness of breath. She denies fever or chills. She has no other complaints at this time. - Constitutional Vitals: Temp Pulse Resp BP Pulse Ox 99.7 F H 91 17 126/82 96 01/19/17 12:05 01/19/17 12:05 01/19/17 12:05 01/19/17 12:05 01/19/17 12:05 General appearance: Present: A&O X 3, pleasant, no acute distress, answers questions appropriately - Head Head exam: Present: atraumatic, normocephalic - Eye Eye exam: Present: PERRL, conjuntiva pink, sclera anicteric Pupils: Present: PERRL - Neck Neck exam general surgery: Present: supple, trachea midline. Absent: lymphadenopathy - Respiratory Respiratory exam: Present: wheezes. Absent: accessory muscle use, rales, rhonchi Additional comments: Expiratory wheezes present bilaterally in the upper lung salazar - Cardiovascular Cardiovascular exam: Present: RRR, +S1, +S2. Absent: diastolic murmur, gallop, rubs, systolic murmur - Skin Skin exam: Present: dry, intact Internal Medicine: Result - Labs CBC & Chem 7: 01/19/17 05:14 01/19/17 05:14 Labs: Short CBC 01/19/17 Range/Units 05:14 WBC 15.1 H D (4.3-11.1) K/mcL Hgb 9.8 L (11.5-15.4) g/dL Hct 32.5 L (35.3-44.9) % Plt Count 458 H (140-400) K/mcL BMP 01/19/17 05:14 Sodium 136 Potassium 5.0 H Chloride 94 L Carbon Dioxide 31 H BUN 43 H D Creatinine 0.97 Glucose 204 H Calcium 9.1 - ABG Interpretation ABG results: PT/INR, D-dimer PT 11.3 Seconds (9.4-12.1) 01/17/17 05:45 Consult Discharge Plan - Plan Referrals: Domitila Lau MD [Primary Care Provider] - <Obed Krause - Last Filed: 01/19/17 16:47> Date of Encounter: 01/19/17 - Constitutional Vitals: Temp Pulse Resp BP Pulse Ox 99.7 F H 91 17 126/82 96 01/19/17 12:05 01/19/17 12:05 01/19/17 12:05 01/19/17 12:05 01/19/17 12:05 Internal Medicine: Result - Labs CBC & Chem 7: 01/19/17 05:14 01/19/17 05:14 Labs: Short CBC 01/19/17 Range/Units 05:14 WBC 15.1 H D (4.3-11.1) K/mcL Hgb 9.8 L (11.5-15.4) g/dL Hct 32.5 L (35.3-44.9) % Plt Count 458 H (140-400) K/mcL BMP 01/19/17 05:14 Sodium 136 Potassium 5.0 H Chloride 94 L Carbon Dioxide 31 H BUN 43 H D Creatinine 0.97 Glucose 204 H Calcium 9.1 - ABG Interpretation ABG results: PT/INR, D-dimer PT 11.3 Seconds (9.4-12.1) 01/17/17 05:45 - Attending Attestation I independently saw and examined this patient on 01/19/17, plan of care is as detailed in the resident physician's documentation 56 F with COPDE, Uncontrolled DM She is clinically improving, FS uncontrolled She complained of a sore throat this morning, throat exam is unremarkable for hyperemia and exudates, she has no lymphadenopathy. Chest is CTAB, no wheezes at my time of eval Labs unremarkable, except WBC 15.0, K of 5.0 Increase insulin, add Lozenges, continue current meds. Leukocytosis is possibly from steroids Continue to monitor Rest as in resident physician's documentation
[2017-01-19] MEDS: levoFLOXacin 500 MG TABLET PO SCH (17:21)
[2017-01-19] MEDS: amLODIPine 5 MG TABLET PO SCH (20:33)
[2017-01-19] MEDS: *HR* OxyCODONE Immed Rel 5 MG TABLET PO PRN (20:36)
[2017-01-19] MEDS ORDERED: Insulin DETEMIR 100 UNIT/ML X5UNITS SQ SCH (21:00)
[2017-01-20] MEDS: Ondansetron 4 MG/2 ML VIAL IVP PRN ×2 (03:30→10:01)
[2017-01-20] MEDS: Ipratropium/Albuterol Neb 3 ML IH SCH ×2 (03:45→07:43)
[2017-01-20 04:12] VITALS: BP 115/75
[2017-01-20] MEDS: *HR* OxyCODONE Immed Rel 5 MG TABLET PO PRN ×2 (04:22→10:00)
[2017-01-20] MEDS: Insulin DETEMIR 100 UNIT/ML X5UNITS SQ SCH (07:55)
[2017-01-20] MEDS: Magnesium Oxide 400 MG TABLET PO SCH (07:56)
[2017-01-20] MEDS: clonazePAM 1 MG TABLET PO SCH (07:56)
[2017-01-20] MEDS: Aspirin Enteric Coated 81 MG Tablet PO SCH (07:56)
[2017-01-20] MEDS: cloNIDine HCl 0.1 MG TABLET PO SCH (07:56)
[2017-01-20] MEDS: Furosemide 40 MG TABLET PO SCH (07:56)
[2017-01-20] MEDS: Losartan/HCTZ 50-12.5 TABLET PO SCH (07:56)
[2017-01-20] MEDS: predniSONE 20 MG TABLET PO SCH (07:56)
[2017-01-20] MEDS: Insulin LISPRO 300 UNITS/3 ML VIAL SQ SCH ×2 (07:57)
[2017-01-20 08:27] LABS: Basophils # 0.1 K/mcL (0.0-0.2); Basophils % 0.7 %; Eosinophils % 0.3 %; Hematocrit 33.6 % (35.3-44.9); Immature Granulocytes % 4.1 % (0-4); Lymphocytes # 2.7 K/mcL (0.6-4.6); Lymphocytes % 21.9 %; Mean Corpuscular HGB Conc 29.8 g/dL (31.6-35.5); Mean Corpuscular Hemoglobin 25.3 pg (28.0-33.3); Mean Corpuscular Volume 85.1 fL (83.0-100.0); Mean Platelet Volume 10.1 fL (9.4-12.4); Monocytes % 8.4 %; Neutrophils # 7.9 K/mcL (1.6-8.9); Platelet Count 467 K/mcL (140-400); Red Blood Count 3.95 M/mcL (3.82-4.97); Red Cell Distribution Width 16.6 % (11.5-14.5); Segmented Neutrophils % 64.6 %
--- NOTE | 2017-01-20 10:08 | Discharge Summary ---
<JustoJoanz - Last Filed: 01/20/17 10:24> Date of Encounter: 01/20/17 Time of Encounter: 09:30 - Discharge Diagnosis (1) Acute exacerbation of chronic obstructive airways disease Priority: Primary Status: Acute Comments: Patient should follow up with PCP in the outpatient setting. (2) DM (diabetes mellitus), type 2 Priority: Secondary Status: Chronic Qualifiers: Diabetes mellitus complication status: with ketoacidosis Diabetes mellitus complication detail: without coma Diabetes mellitus meterman insulin use: with meterman use Qualified Code(s): E11.10 - Type 2 diabetes mellitus with ketoacidosis without coma; Z79.4 - [facility] (current) 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; Z79.4 - intermediate manager (current) 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; Z79.4 - [facility] (current) 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; Z79.4 - [facility] (current) 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 (3) Hypertension Priority: Secondary Status: Chronic Qualifiers: Hypertension type: essential hypertension Qualified Code(s): I10 - Essential (primary) hypertension (4) Hyperkalemia Priority: Secondary Status: Acute (5) Sore throat Priority: Secondary Status: Acute (6) DVT prophylaxis Priority: Secondary Status: Acute - Discharge Medications Home Medications: cloNIDine HCl [Clonidine HCl] 0.3 mg PO QID 05/16/16 [History] Oxygen 3 l AER CONT 07/19/16 [History] clonazePAM [Klonopin] 1 mg PO BID 07/31/16 [History] Insulin Glargine [Lantus] 36 unit SQ HS 08/10/16 [History] Insulin LISPRO [HumaLOG] 2 - 10 units SQ TIDWM PRN 08/10/16 [History] Roflumilast [Daliresp] 500 mcg PO DAILY 08/10/16 [History] amLODIPine [Norvasc] 5 mg PO HS #30 tab 09/30/16 [Rx] Albuterol Sulfate [Ventolin Hfa] 2 puff IH Q4H PRN #1 inh 10/15/16 [Rx] Furosemide [Lasix] 40 mg PO DAILY #30 tab 10/28/16 [Rx] Ondansetron [Zofran] 4 mg PO Q6HR PRN #120 tab 11/10/16 [Rx] Pantoprazole Sodium [Protonix] 40 mg PO BIDWM #60 tablet. 11/10/16 [Rx] Ipratropium/Albuterol Neb [Duoneb] 3 ml IH Q4HR 11/20/16 [History] OxyCODONE Immed Rel [Roxicodone 5 MG] 5 mg PO Q6HR PRN 11/20/16 [History] Ranitidine HCl [Zantac] 150 mg PO BID 11/20/16 [History] Aspirin [Lo-Dose Aspirin EC] 81 mg PO DAILY 01/12/17 [History] Azithromycin [Azithromycin 6-Tab Pack] 250 mg PO PER PKG DI #6 tab 01/12/17 [Rx] PredniSONE [Deltasone] 20 mg PO BID #10 tablet 01/12/17 [Rx] Loratadine [Allergy Relief] 10 mg PO DAILY 01/16/17 [History] Losartan/Hydrochlorothiazide [Losartan-Hctz 100-25 mg Tab] 1 tab PO DAILY [History] Magnesium Oxide [Mag-Ox] 400 mg PO DAILY 01/16/17 [History] Meclizine [Antivert] 25 mg PO TID 01/16/17 [History] Montelukast [Singulair] 10 mg PO DAILY 01/16/17 [History] Tiotropium [Spiriva] 18 mcg IH DAILY 01/16/17 [History] Allergies/Adverse Reactions: 3 Allergy/AdvReac Type Severity Reaction Status Date / Time NSAIDS (Non-Steroidal Allergy Unknown See Verified 01/16/17 13:40 Anti-Inflamma Comments Penicillins Allergy Unknown Hives Verified 01/16/17 13:40 lisinopril AdvReac Cough Verified 01/16/17 13:40 tramadol AdvReac Nausea Verified 01/16/17 13:40 Date of admission: 01/16/17 17:46 Primary care physician: Domitila Lau MD Discharging clinician: Mann Kemp Anticipated date of discharge: 01/20/17 - Patient Status Disposition: Home, Self-Care Condition: Fair Overall status at discharge: patient is progressing back to baseline - Discharge Instructions Follow Up With: Domitila Lau MD [Primary Care Provider] - 01/26/17 1:30 pm - Diet and Activity Activity: increase activity as tolerated Diet: advance to your usual diet Hospital course: Ms. Ren is a 56 year old female with past medical history of diabetes, hypertension, COPD, and congestive heart failure who presented to the hospital on 01/16/17 with a chief complaint of cough and shortness of breath of 3 days' duration. Patient noted that she had sputum production which changed in color from clear to white to light green. She noted that her shortness of breath was so severe that she was unable to even walk 5-7 steps. She had recently been seen by her primary care provider who started her on azithromycin in the outpatient setting. She had no improvement. When she presented to the emergency department, her white count was elevated at 11.4, she had an elevated pulse at 101, and her blood pressure was elevated at 170/109. Chest x-ray was performed, which demonstrated no acute findings. EKG showed sinus tachycardia. Patient was admitted as an inpatient, started on IV Levaquin, IV Solu-Medrol 40 mg every 8 hours, and duo nebs every 4 hours. Patient's respiratory status was closely monitored. Blood cultures were obtained on 01/16/17; were negative. On 01/18/17, patient's Solu-Medrol was discontinued and patient was given prednisone 20 mg by mouth twice a day. She was put on oxygen via nasal cannula. Patient had an elevated glucose on presentation, was placed on prandial insulin and a diabetic diet. During her hospital stay, patient's condition gradually started to improve. She admits that she has had several presentations similar to this one. Approximately one month ago she had previously been in the hospital for a very similar episode of shortness of breath. She stated that her treatment resolved with oxygen via nasal cannula and steroids. In the initial days of her stay at the hospital, patient had expiratory wheezes on physical examination, but was never in shortness of breath or any type of acute distress. On date of discharge, patient was seen and examined at bedside , and states that she is feeling much better. She is not wearing oxygen on date of discharge. Physical examination was unremarkable. Patient did complain of having a sore throat the day before discharge, for which she was given a cepacol lozenge. Admits to having some soreness in her throat today. Otherwise feels well. Patient's white count has decreased from 15.1 yesterday to 12.2 today. Patient's vital signs are within normal limits. Oxygen saturation is 99. - Time Spent with Patient Total time spent providing and/or coordinating discharge services: Greater than 30 minutes (41 minutes) - Constitutional Vitals: Temp Pulse Resp BP Pulse Ox 98.2 F 76 18 115/75 99 01/20/17 06:56 01/20/17 06:56 01/20/17 07:43 01/20/17 06:56 01/20/17 07:43 General appearance: Present: A&O X 3, pleasant, no acute distress, answers questions appropriately - Head Head exam: Present: atraumatic, normocephalic - Eye Eye exam: Present: PERRL, conjuntiva pink, sclera anicteric Pupils: Present: PERRL - Neck Neck exam general surgery: Present: supple, trachea midline. Absent: lymphadenopathy - Respiratory Respiratory exam: Present: CTAB. Absent: accessory muscle use, rales, rhonchi, wheezes - Cardiovascular Cardiovascular exam: Present: RRR, +S1, +S2. Absent: diastolic murmur, gallop, rubs, systolic murmur - GI/Abdominal GI/Abdominal exam: Present: normal bowel sounds, soft, no peritoneal signs. Absent: distended, tenderness - Extremities Exam Extremities exam: Present: warm, radial pulses palpable and symmetrical. Absent : calf tenderness, cyanotic, pedal edema - Skin Skin exam: Present: dry, intact <Obed Krause - Last Filed: 01/20/17 16:15> Date of Encounter: 01/20/17 Date of admission: 01/16/17 17:46 Primary care physician: Domitila Lau MD Hospital course: Ms. Ren is a 56 year old female - Time Spent with Patient Total time spent providing and/or coordinating discharge services: - Constitutional Vitals: Temp Pulse Resp BP Pulse Ox 98.2 F 76 18 115/75 99 01/20/17 06:56 01/20/17 06:56 01/20/17 07:43 01/20/17 06:56 01/20/17 07:43 - Attending Attestation Seen and examined with medical staff services manager, agree with plan
[2017-01-20] MEDS ORDERED: Insulin DETEMIR 100 UNIT/ML X5UNITS SQ SCH (21:00)
== END 2017-01-20 11:17 | disposition home or self-care (01) | DRG 191 ==
LOC: 2ANU 13:29 → EMEROO 13:29 → 2ANU 16:33 → SUATTDRO 17:46
PROVIDERS: ADMIT Internal Medicine; ATTEND Internal Medicine

== ENCOUNTER 2017-01-31 12:12 | Inpatient (IN) ==
[2017-01-31 14:15] LABS: Basophils % 0.5 %; Eosinophils # 0.2 K/mcL (0.0-0.6); Eosinophils % 2.5 %; Hematocrit 32.6 % (35.3-44.9); Hemoglobin 9.9 g/dL (11.5-15.4); Immature Granulocytes % 0.8 % (0-4); Lymphocytes # 1.2 K/mcL (0.6-4.6); Lymphocytes % 20.6 %; Mean Corpuscular HGB Conc 30.4 g/dL (31.6-35.5); Mean Corpuscular Volume 85.6 fL (83.0-100.0); Mean Platelet Volume 10.3 fL (9.4-12.4); Monocytes # 0.7 K/mcL (0.0-1.3); Monocytes % 11.8 %; Neutrophils # 3.8 K/mcL (1.6-8.9); Platelet Count 369 K/mcL (140-400); Red Blood Count 3.81 M/mcL (3.82-4.97); Red Cell Distribution Width 18.3 % (11.5-14.5); Segmented Neutrophils % 63.8 %
[2017-01-31 14:19] LABS: Blood Urea Nitrogen 10 mg/dL (7-20); Carbon Dioxide 24 mEq/L (19-29); Chloride 112 mEq/L (98-109); Potassium 3.9 mEq/L (3.5-4.5); Sodium 146 mEq/L (136-145)
[2017-01-31 14:20] LABS: BUN/Creatinine Ratio 16 (6-26); Calcium 9.5 mg/dL (8.6-10.8); Glucose 112 mg/dL (70-99); Osmolality,Calculated 302 (280-300); eGFR For African Americans > 60 (> 60); eGFR For Non-African Americans > 60 (> 60)
[2017-01-31] MEDS ORDERED: Ipratropium/Albuterol Neb 3 ML IH ONE (14:47)
[2017-01-31] MEDS ORDERED: methylPREDNISolone 125 MG/2 ML VIAL IVP ONE (14:52)
--- NOTE | 2017-01-31 14:53 | Emergency Department Note ---
Disposition Clinical Impression: Acute exacerbation of chronic obstructive pulmonary disease (COPD) Disposition: Admitted As Inpatient Condition: Good Referrals: Domitila Lau MD [Primary Care Provider] - Forms: ED Satisfaction Letter Time of Disposition: 15:15 SOB HPI - General Chief Complaint: ED Shortness of Breath/Dyspnea Stated Complaint: LESTER Time Seen by Provider: 01/31/17 14:34 Source: patient Mode of arrival: ambulatory Limitations: no limitations Nursing Notes Reviewed: Yes Vital Signs Reviewed: Yes - History of Present Illness 56-year-old female history of hypertension, diabetes, COPD on 3 L home oxygen supplementation presents with difficulty breathing. Progressively worse over the past 3 days. She has a productive cough that is now green. She is been using a her nebulizer at home with increased frequency. She had similar symptoms on gi about 2 weeks ago refused admission and states she improved mildly but has gradually gotten worse again. Denies any fevers. Denies any nausea or vomiting. Denies history of blood clots. She denies any chest pain. She has completed her steroids treatment. 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 Recent admission a month ago. Pt Subjective Complaint: shortness of breath, cough - Related Data Home Medications Medication Instructions Recorded Confirmed cloNIDine HCl [Clonidine HCl] 0.3 mg PO QID 05/16/16 01/31/17 Oxygen 3 l IH AD 07/19/16 01/31/17 clonazePAM [Klonopin] 1 mg PO BID 07/31/16 01/31/17 Insulin Glargine [Lantus] 40 unit SQ HS 08/10/16 01/31/17 Insulin LISPRO [HumaLOG] 0 units SQ TIDWM 08/10/16 01/31/17 Roflumilast [Daliresp] 500 mcg PO DAILY 08/10/16 01/31/17 Ipratropium/Albuterol Neb [Duoneb] 3 ml IH Q4HR 11/20/16 01/31/17 OxyCODONE Immed Rel [Roxicodone 5 5 mg PO Q8H PRN 11/20/16 01/31/17 MG] Ranitidine HCl [Zantac] 150 mg PO BID 11/20/16 01/31/17 Aspirin [Lo-Dose Aspirin EC] 81 mg PO DAILY 01/12/17 01/31/17 Loratadine [Allergy Relief] 10 mg PO DAILY 01/16/17 01/31/17 Losartan/Hydrochlorothiazide 1 tab PO DAILY 01/16/17 01/31/17 [Losartan-Hctz 100-25 mg Tab] Meclizine [Antivert] 25 mg PO TID PRN 01/16/17 01/31/17 Furosemide [Lasix] 40 mg PO DAILY PRN 01/31/17 01/31/17 Previous Rx's Medication Instructions Recorded amLODIPine [Norvasc] 5 mg PO HS #30 tab 09/30/16 Albuterol Sulfate [Ventolin Hfa] 2 puff IH Q4H PRN #1 inh 10/15/16 Ondansetron [Zofran] 4 mg PO Q6HR PRN #120 tab 11/10/16 Pantoprazole Sodium [Protonix] 40 mg PO BIDWM #60 tablet. 11/10/16 Allergies Allergy/AdvReac Type Severity Reaction Status Date / Time NSAIDS (Non-Steroidal Allergy Unknown See Verified 01/16/17 13:40 Anti-Inflamma Comments Penicillins Allergy Unknown Hives Verified 01/16/17 13:40 lisinopril AdvReac Cough Verified 01/16/17 13:40 tramadol AdvReac Nausea Verified 01/16/17 13:40 All systems ED: reviewed and negative except as stated. Review of Systems: As Per HPI Constitutional: Denies: fever, chills ENT ED: Denies: congestion, dysphagia Cardiovascular: Reports: dyspnea on exertion. Denies: chest pain Respiratory: Reports: cough, dyspnea, wheezes Gastrointestinal: Denies: abdominal pain, nausea, vomiting Genitourinary: Denies: urgency Musculoskeletal: Denies: back pain, neck pain Integumentary: Denies: rash, abrasion Neurological: Denies: headache Past Medical History - Past Medical History Attestation: Yes The following information was validated with the patient. Source: patient Medical history: Reports: asthma, CHF, COPD, diabetes, GERD, hyperlipidemia, hypertension, renal disease Surgical history: Reports: appendectomy, cholecystectomy, knee replacement, other Psychiatric history: Reports: anxiety PROGRAM MGR history: Reports: ectopic , other - Social History Smoking Status: Former smoker Smokeless Tobacco Status: No Alcohol use: Reports: none Drug use: Reports: none Physical Exam - General Limitations: no limitations General appearance: alert, in no apparent distress - Head Head exam: atraumatic, normocephalic, normal inspection - Eye Eye exam: Present: normal appearance, PERRL, EOMI - ENT ENT exam: normal exam, normal oropharynx, mucous membranes moist - Neck Neck exam: Present: normal inspection, full ROM, trachea midline - Chest Chest inspection: Present: normal inspection, symmetric chest wall rise. Absent : tenderness, rash - Respiratory Respiratory exam: Present: respiratory distress (Mild), wheezes (bilateral), other (tight with diminished breath sounds) - Cardiovascular Cardiovascular exam: Present: regular rate, normal rhythm, normal heart sounds - Abdominal Exam Abdominal exam: Present: soft, Non-Tender, normal bowel sounds. Absent: tenderness, distention, guarding, rebound, rigidity - Extremities Exam Extremities exam: Present: normal inspection, full ROM, normal capillary refill. Absent: tenderness, pedal edema, calf tenderness - Back Exam Back exam: Present: normal inspection, full ROM. Absent: tenderness, CVA tenderness (R), CVA tenderness (L) - Neurological Exam Neurological exam: Present: alert, oriented X3 - Psychiatric Psychiatric exam: Present: normal affect, normal mood - Skin Skin exam: Present: warm, dry, intact, normal color. Absent: rash, cyanosis, diaphoresis Course Course Narrative: 56-year-old female presents with difficulty breathing. Ongoing over the past few days. Worsening cough, worsening shortness of breath, change in sputum production now green. No fevers. On initial valuation patient is 94% on room air with tight breath sounds. After 3 continuous do it nab treatments she has scattered wheezes. She is now hundred percent on her 3 L. Suspect this is likely COPD exacerbation. She was recently treated the past 2 weeks for similar symptoms requiring hospitalization. Chest x-ray does not reveal any signs of pneumonia or opacity. Review for labs shows a stable chronic anemia. Her sodium is 146. Troponin 0. All other lab values are unremarkable. Pression is COPD exacerbation. She is in no respiratory distress at this time. She does not require a BiPAP - Reevaluation(s) Reevaluation #1: Patient was hypertensive on evaluation. She says she is overdue for her clonidine. Because of her elevated blood pressure and elevated heart rate of 140 she is been given IV labetalol 5 mg. Her blood pressure has come from a systolic 190 down to 170. She is stable to transfer to the hospital floor for admission. Oxycodone given as she typically takes this at home for pain. Impression is COPD exacerbation. Time: 17:37 - Consultations Consultation #1: Spoke with on-call hospitalist bertha Lin to admit for COPD exacerbation. Obese started on azithromycin and ceftriaxone. She has had ceftriaxone previously without any reaction she does have a penicillin allergy of hives. Time: 17:24 Vital Signs Temperature 98.3 F 01/31/17 12:25 Pulse Rate 112 01/31/17 12:25 Respiratory Rate 22 01/31/17 12:25 Blood Pressure 177/126 01/31/17 12:25 O2 Sat by Pulse Oximetry 97 01/31/17 12:25 Temperature 98.3 F 01/31/17 12:25 Pulse Rate 110 01/31/17 17:02 Respiratory Rate 20 01/31/17 17:02 Blood Pressure 160/109 01/31/17 17:02 O2 Sat by Pulse Oximetry 100 01/31/17 17:02 Oxygen Delivery Oxygen Delivery Nasal Cannula Shortness of Breath/Dyspnea - MDM Narrative Medical decision making narrative: Patient was discussed with my attending physician who agrees with ED management and final disposition. They independently evaluated the patient. Please refer to their attestation to this encounter for additional information. This note was generated by [employer] voice recognition software and as a result grammatical or spelling errors may occur using this program. - Medical Records Medical records reviewed: Yes I reviewed the patient's medical records. - Lab Data Lab results reviewed: Yes I reviewed the patient's lab results. Result diagrams: 01/31/17 14:02 01/31/17 14:02 Lab Results 01/31/17 01/31/17 01/31/17 Range/Units 14:02 14:02 14:02 WBC 5.9 (4.3-11.1) K/mcL RBC 3.81 L (3.82-4.97) M/mcL Hgb 9.9 L (11.5-15.4) g/dL Hct 32.6 L (35.3-44.9) % MCV 85.6 (83.0-100.0) fL MCH 26.0 L (28.0-33.3) pg MCHC 30.4 L (31.6-35.5) g/dL RDW 18.3 H (11.5-14.5) % Plt Count 369 (140-400) K/mcL MPV 10.3 (9.4-12.4) fL Immature Gran % 0.8 (0-4) % Seg Neutrophils % 63.8 % Lymphocytes % 20.6 % Monocytes % 11.8 % Eosinophils % 2.5 % Basophils % 0.5 % Neutrophils # 3.8 (1.6-8.9) K/mcL Lymphocytes # 1.2 (0.6-4.6) K/mcL Monocytes # 0.7 (0.0-1.3) K/mcL Eosinophils # 0.2 (0.0-0.6) K/mcL Basophils # 0.0 (0.0-0.2) K/mcL Sodium 146 H (136-145) mEq/L Potassium 3.9 (3.5-4.5) mEq/L Chloride 112 H (98-109) mEq/L Carbon Dioxide 24 (19-29) mEq/L BUN 10 (7-20) mg/dL Creatinine 0.61 (0.57-1.11) mg/dL Est GFR ( Amer) > 60 (> 60) Est GFR (Non-Af Amer) > 60 (> 60) BUN/Creatinine Ratio 16 (6-26) Glucose 112 H (70-99) mg/dL Calculated Osmolality 302 H (280-300) Lactic Acid 1.1 (0.5-2.2) mmol/L Calcium 9.5 (8.6-10.8) mg/dL Troponin I (0-0.03) ng/mL B-Natriuretic Peptide (0-100) pg/mL 01/31/17 01/31/17 Range/Units 14:02 14:02 WBC (4.3-11.1) K/mcL RBC (3.82-4.97) M/mcL Hgb (11.5-15.4) g/dL Hct (35.3-44.9) % MCV (83.0-100.0) fL MCH (28.0-33.3) pg MCHC (31.6-35.5) g/dL RDW (11.5-14.5) % Plt Count (140-400) K/mcL MPV (9.4-12.4) fL Immature Gran % (0-4) % Seg Neutrophils % % Lymphocytes % % Monocytes % % Eosinophils % % Basophils % % Neutrophils # (1.6-8.9) K/mcL Lymphocytes # (0.6-4.6) K/mcL Monocytes # (0.0-1.3) K/mcL Eosinophils # (0.0-0.6) K/mcL Basophils # (0.0-0.2) K/mcL Sodium (136-145) mEq/L Potassium (3.5-4.5) mEq/L Chloride (98-109) mEq/L Carbon Dioxide (19-29) mEq/L BUN (7-20) mg/dL Creatinine (0.57-1.11) mg/dL Est GFR ( Amer) (> 60) Est GFR (Non-Af Amer) (> 60) BUN/Creatinine Ratio (6-26) Glucose (70-99) mg/dL Calculated Osmolality (280-300) Lactic Acid (0.5-2.2) mmol/L Calcium (8.6-10.8) mg/dL Troponin I 0.00 (0-0.03) ng/mL B-Natriuretic Peptide 53 (0-100) pg/mL - Radiology Data Radiology results reviewed: Yes I reviewed the patient's radiology results. Chest X-Ray 01/31/17 12:27 IMPRESSION: Patchy linear basilar atelectasis, unchanged. No acute airspace disease. D/ / Jan Milian MD / Jan Milian MD Interpreting Provider: Jan Milian MD - EKG Data EKG attestation: Yes I reviewed and interpreted this EKG. EKG results narrative: EKG performed 1228 sinus tachycardia 10 6 bpm, normal axis, good R wave progression, no ST elevations or depression, intervals are within normal limits. There is no old EKG for comparison at this time. No acute ischemic changes scene. Attestation Statement - Attestation Attestation: I examined this patient and my medical decision-making was reviewed with the Resident Physician. I agree with the documented findings, disposition and treatment plan as described except to the extent set forth below. Patient to ED with shortness of breath. Onset 2 days ago. Patient wanted to myself with department for the same. She will history of COPD and CHF. She is dependent on home oxygen. On examination she is tachypneic. Tachycardic. Decreased air exchange bilaterally. Plan. Nebs and steroids. Patient states this feels like her COPD. Coughing up green phlegm. Steroids and antibiotics. Will admit.
[2017-01-31] MEDS ORDERED: cloNIDine HCl 0.1 MG TABLET PO ONE (16:15)
[2017-01-31] MEDS ORDERED: *HR* Labetalol 20 MG/4 ML SYRINGE IVP ONE (16:17)
[2017-01-31] MEDS ORDERED: *HR* OxyCODONE Immed Rel 5 MG TABLET PO ONE (16:40)
[2017-01-31] MEDS ORDERED: Azithromycin 500 MG in D5% in Water 250 ML IVPB ONE (17:21)
[2017-01-31] MEDS ORDERED: cefTRIAXone 1,000 MG in Water for inj. (sterile) 10 ML IVP ONE (17:21)
[2017-01-31] MEDS ORDERED: *HR* Morphine 2 MG/ML SYRINGE IVP ONE (17:38)
[2017-01-31] MEDS ORDERED: Furosemide 40 MG TABLET PO PRN (20:48)
[2017-01-31] MEDS ORDERED: Acetaminophen 325 MG TABLET PO PRN (20:50)
[2017-01-31] MEDS ORDERED: Naloxone 0.4 MG/ML INJ IVP PRN (20:50)
--- NOTE | 2017-01-31 20:54 | Internal Med History&Physical ---
Date of Encounter: 01/31/17 Time of Encounter: 20:30 Assessment and Plan (1) Acute exacerbation of chronic obstructive pulmonary disease (COPD) Current visit: Yes Status: Acute Acute exacerbation of advanced COPD with probable acute bronchitis Continue DuoNeb breathing treatment, IV Solu-Medrol, empiric IV Rocephin, O2 via NC Continued BiPAP at night Chest x-ray - no acute disease EKG - sinus tachycardia with no acute ST-T changes Troponin - 0.00 BNP - 53 Cardiac telemetry, pulse ox, labs in a.m., monitor closely (2) Diabetes mellitus Current visit: Yes Status: Chronic Type 2 diabetes mellitus, insulin-dependent, hyperglycemia Continue insulin sliding scale, Glucose checks Qualifiers: Diabetes mellitus type: type 2 Diabetes mellitus complication status: with hyperglycemia Diabetes mellitus terminal system operator insulin use: with usp use Qualified Code(s): E11.65 - Type 2 diabetes mellitus with hyperglycemia; Z79.4 - oil heaterman (current) 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; Z79.4 - oil heaterman (current) 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 ; Z79.4 - intermediate (current) 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; Z79.4 - intermediate (current) 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 (3) HTN (hypertension) Current visit: Yes Status: Chronic Essential hypertension, controlled, monitor Continue home dose of Hyzaar, clonidine Qualifiers: Hypertension type: essential hypertension Qualified Code(s): I10 - Essential (primary) hypertension (4) JORGE (obstructive sleep apnea) Current visit: Yes Status: Chronic Continue BiPAP (5) DVT prophylaxis Current visit: Yes Status: Acute Heparin subcutaneous Internal Medicine - H&P: HPI Chief complaint: Shortness of breath Admitted From: Emergency Dept Plans for Post Hospital Care: Home History of present illness: Ms. Ren is a 56 year old female with past medical history of advanced COPD, CHF , hypertension, diabetes, hyperlipidemia, GERD, renal disease and anxiety. Patient presented to ED with complaints of shortness of breath. Examination in the room. Patient is awake and alert. She is in mild distress. She does have conversational dyspnea. No family members at bedside. Patient states she developed shortness of breath about 2-3 years ago. She also has a productive cough, green colored sputum. Symptoms gradually worsened. Worse with exertion. She does use oxygen at home. She also uses BiPAP at night. Patient denies chest pain. Complains of wheezing. States her symptoms are moderate to severe. Denies palpitations or dizziness or headache or fever. No other associated symptoms. She has tried using her neb machine but it did not help. No alleviating factors. No other acute complaints. Initial workup in the ED is negative. Patient is being admitted for acute exacerbation of COPD. She will need bronchodilators, IV steroids, O2 and BiPAP. Patient has been about her condition plan of care detail. She understood and agreed. No unanswered questions. CODE STATUS full code. Past Med Surg Social Fam HX - Past Medical History Medical history: asthma, CHF, COPD, diabetes, GERD, hyperlipidemia, hypertension , renal disease Psychiatric history: anxiety - Past Surgical History Surgical History: appendectomy, cholecystectomy, knee replacement, other - Social History Smoking Status: Former smoker Smokeless Tobacco Status: No Alcohol use: none Drug use: none - Family History Father Family Member Ethnicity: Non- Living Status: Hx Family Cardiac Disorders: Yes (Atheroslcerosis) Mother Family Member Ethnicity: Non- Living Status: Still Living Hx Family Cardiac Disorders: Yes (HTN) Hx Family Respiratory Disorders: No Hx Family Cancer: No Hx Family GI Disorders: No Hx Family Endocrine Disorder: Yes (DM) Hx Family Neuromuscular Disorders: No Hx Family Neurologic Disorders: No Hx Family HEENT Disorders: No Hx Family Autoimmune Disorders: No Internal Medicine - H&P: Meds cloNIDine HCl [Clonidine HCl] 0.3 mg PO QID 05/16/16 [History] Oxygen 3 l IH AD 07/19/16 [History] clonazePAM [Klonopin] 1 mg PO BID 07/31/16 [History] Insulin Glargine [Lantus] 40 unit SQ HS 08/10/16 [History] Insulin LISPRO [HumaLOG] 0 units SQ TIDWM 08/10/16 [History] Roflumilast [Daliresp] 500 mcg PO DAILY 08/10/16 [History] amLODIPine [Norvasc] 5 mg PO HS #30 tab 09/30/16 [Rx] Albuterol Sulfate [Ventolin Hfa] 2 puff IH Q4H PRN #1 inh 10/15/16 [Rx] Ondansetron [Zofran] 4 mg PO Q6HR PRN #120 tab 11/10/16 [Rx] Pantoprazole Sodium [Protonix] 40 mg PO BIDWM #60 tablet. 11/10/16 [Rx] Ipratropium/Albuterol Neb [Duoneb] 3 ml IH Q4HR 11/20/16 [History] OxyCODONE Immed Rel [Roxicodone 5 MG] 5 mg PO Q8H PRN 11/20/16 [History] Ranitidine HCl [Zantac] 150 mg PO BID 11/20/16 [History] Aspirin [Lo-Dose Aspirin EC] 81 mg PO DAILY 01/12/17 [History] Loratadine [Allergy Relief] 10 mg PO DAILY 01/16/17 [History] Losartan/Hydrochlorothiazide [Losartan-Hctz 100-25 mg Tab] 1 tab PO DAILY [History] Meclizine [Antivert] 25 mg PO TID PRN 01/16/17 [History] Furosemide [Lasix] 40 mg PO DAILY PRN 01/31/17 [History] 3 Allergy/AdvReac Type Severity Reaction Status Date / Time NSAIDS (Non-Steroidal Allergy Unknown See Verified 01/16/17 13:40 Anti-Inflamma Comments Penicillins Allergy Unknown Hives Verified 01/16/17 13:40 lisinopril AdvReac Cough Verified 01/16/17 13:40 tramadol AdvReac Nausea Verified 01/16/17 13:40 All Systems PM: A 10-system review of systems was performed and is negative for pertinent findings except as documented above in the HPI. - Constitutional Constitutional: fatigue, no fever(s), no weakness - EENT Eyes: no blurry vision Nose, mouth and throat: no dry mouth - Cardiovascular Cardiovascular ROS IM: dyspnea, dyspnea on exertion, orthopnea, no chest pain, no diaphoresis, no edema, no lightheadedness, no palpitations, no syncope - Respiratory Respiratory: cough, dyspnea, dyspnea on exertion, wheezing, chest congestion, excessive phlegm production, no hemoptysis - Gastrointestinal Gastrointestinal: no abdominal pain, no bloating, no cramping, no diarrhea, no hematemesis, no hematochezia, no loose stools, no melena, no nausea, no vomiting - Genitourinary Genitourinary: no dysuria - Neurological Neurological ROS: no abnormal gait, no abnormal speech, no confusion, no convulsions, no dizziness, no loss of vision, no numbness, no tingling - Constitutional Vitals: Temp Pulse Resp BP Pulse Ox 98.5 F 116 18 183/105 96 01/31/17 19:44 01/31/17 19:44 01/31/17 19:44 01/31/17 19:44 01/31/17 19:44 General appearance: Present: cooperative, mild distress, A&O X 3, pleasant, answers questions appropriately - Head Head exam: Present: atraumatic - Eye Eye exam: Present: EOMI - ENT ENT exam: Present: mucous membranes dry - Respiratory Respiratory exam: Present: accessory muscle use, decreased breath sounds ( Diminished breath sounds bilaterally), respiratory distress, rhonchi (Mild), wheezes (Mild), tachypnea. Absent: rales - Cardiovascular Cardiovascular exam: Present: RRR, +S1, +S2, tachycardia - GI/Abdominal GI/Abdominal exam: Present: soft. Absent: distended, firm, guarding, tenderness - Extremities Exam Extremities exam: Present: pedal edema (Mild bilateral), radial pulses palpable and symmetrical. Absent: calf tenderness, cyanotic - Neurological Exam Neurological exam: Present: alert, oriented X3, no focal deficits. Absent: facial droop, speech deficit Internal Med - H&P Results - Labs CBC & Chem 7: 01/31/17 14:02 01/31/17 14:02
[2017-01-31] MEDS ORDERED: NON-FORMULARY MEDICATION 1 EACH EACH (Oxygen [Oxygen] 3 L) IH SCH (21:00)
[2017-01-31] MEDS ORDERED: NON-FORMULARY MEDICATION 1 EACH EACH (Insulin Glargine [Lantus] 40 UNIT) SQ SCH (21:00)
[2017-01-31] MEDS ORDERED: Dextrose Gel 15 GM PO PRN ×2 (21:01)
[2017-01-31] MEDS ORDERED: *HR* Dextrose 50 % in Water (Syg) 50 ML SYRINGE IVP PRN (21:01)
[2017-01-31] MEDS ORDERED: D5% in Water 1,000 ML IVC PRN (21:01)
[2017-01-31] MEDS ORDERED: Insulin DETEMIR 100 UNIT/ML X5UNITS SQ SCH (21:30)
[2017-01-31] MEDS: 0.9 % Sodium Chloride 1,000 ML IVC SCH (22:35)
[2017-01-31] MEDS: *HR* Morphine 2 MG/ML SYRINGE IVP PRN (22:36)
[2017-01-31] MEDS: Losartan/HCTZ 50-12.5 TABLET PO SCH (22:36)
[2017-01-31] MEDS: Famotidine 20 MG TABLET PO SCH (22:36)
[2017-01-31] MEDS: Aspirin Enteric Coated 81 MG Tablet PO SCH (22:36)
[2017-01-31] MEDS: clonazePAM 1 MG TABLET PO SCH (22:36)
[2017-01-31] MEDS: amLODIPine 5 MG TABLET PO SCH (22:37)
[2017-01-31] MEDS: Insulin LISPRO 300 UNITS/3 ML VIAL SQ SCH (22:37)
[2017-01-31] MEDS: Ipratropium/Albuterol Neb 3 ML IH SCH (23:19)
[2017-02-01] MEDS: MethylPREDNISolone 40 MG/ML VIAL IVP SCH ×4 (00:26→23:37)
[2017-02-01] MEDS: Furosemide 20 MG/2 ML VIAL IVP SCH ×4 (00:26→16:24)
[2017-02-01] MEDS: *HR* Morphine 2 MG/ML SYRINGE IVP PRN ×2 (02:29→06:40)
[2017-02-01] MEDS: Ipratropium/Albuterol Neb 3 ML IH SCH ×5 (03:42→20:36)
[2017-02-01] MEDS: Ondansetron 4 MG/2 ML VIAL IVP PRN ×2 (04:34→16:28)
[2017-02-01 04:46] LABS: Basophils % 0.2 %; Hematocrit 34.7 % (35.3-44.9); Hemoglobin 10.6 g/dL (11.5-15.4); Lymphocytes # 0.7 K/mcL (0.6-4.6); Mean Corpuscular HGB Conc 30.5 g/dL (31.6-35.5); Mean Platelet Volume 10.8 fL (9.4-12.4); Monocytes # 0.1 K/mcL (0.0-1.3); Monocytes % 1.3 %; Platelet Count 441 K/mcL (140-400); Red Blood Count 4.08 M/mcL (3.82-4.97); Red Cell Distribution Width 18.3 % (11.5-14.5); Segmented Neutrophils % 83.5 %
[2017-02-01 04:53] LABS: INR 1.2; Prothrombin Time 12.8 Seconds (9.4-12.1)
[2017-02-01 04:57] LABS: BUN/Creatinine Ratio 19 (6-26); Blood Urea Nitrogen 17 mg/dL (7-20); Calcium 9.5 mg/dL (8.6-10.8); Carbon Dioxide 22 mEq/L (19-29); Chloride 105 mEq/L (98-109); Glucose 331 mg/dL (70-99); Magnesium 1.3 mg/dL (1.6-2.6); Osmolality,Calculated 310 (280-300); Potassium 3.8 mEq/L (3.5-4.5); Sodium 143 mEq/L (136-145); eGFR For African Americans > 60 (> 60); eGFR For Non-African Americans > 60 (> 60)
[2017-02-01] MEDS: *HR* Heparin 5,000 UNIT/ML VIAL SQ SCH ×2 (06:40→17:45)
[2017-02-01] MEDS: Insulin LISPRO 300 UNITS/3 ML VIAL SQ SCH ×6 (08:16→21:46)
[2017-02-01] MEDS: Famotidine 20 MG TABLET PO SCH ×2 (08:17→21:45)
[2017-02-01] MEDS: Aspirin Enteric Coated 81 MG Tablet PO SCH (08:17)
[2017-02-01] MEDS: cloNIDine HCl 0.1 MG TABLET PO SCH ×5 (08:17→21:45)
[2017-02-01] MEDS: clonazePAM 1 MG TABLET PO SCH ×2 (08:17→21:45)
[2017-02-01] MEDS: Loratadine 10 MG TABLET PO SCH (08:17)
[2017-02-01] MEDS: Losartan/HCTZ 50-12.5 TABLET PO SCH (08:17)
[2017-02-01] MEDS: cefTRIAXone 1,000 MG in Water for inj. (sterile) 10 ML IVP SCH (08:20)
[2017-02-01] MEDS ORDERED: (Roflumilast [Daliresp] 500 MCG) PO SCH (09:00)
[2017-02-01] MEDS: Insulin DETEMIR 100 UNIT/ML X5UNITS SQ SCH ×2 (10:07→21:46)
[2017-02-01] MEDS: *HR* OxyCODONE Immed Rel 5 MG TABLET PO PRN ×3 (10:08→22:11)
--- NOTE | 2017-02-01 10:59 | Internal Med Progress Note ---
<Brittany Torres - Last Filed: 02/01/17 11:24> Date of Encounter: 02/01/17 Time of Encounter: 10:50 - Assessment and plan (1) Acute exacerbation of chronic obstructive airways disease Current Visit: No Status: Acute Assessment and plan: Patient with severe COPD on home oxygen at 3L at baseline Patient recently admitted from 01/16-01/20 for same, given IV levaquin and steroids. Patient is on daliresp, symbicort and duo nebs at home Review of EMR indicates that patient is on oxycodone 5 mg TID for a combination of chronic pain as well as to help with dyspnea. Previosu note in EMR from PCP indicates she had a UDS negative for oxycodone but patient had numerous hospitalizations and presentations to ED. Given she has been getting morphine would not recommend UDS at this time as would not be helpful. She should have a repeat UDS with interpretation as outpatient with her PCP. Will discontinue IV morphine and resume oral oxycodone at this time. Will contine IV rochephin (day2) Continue IV steroids Q* hour, will wean as tolerated. Given numerous exacerbations and use of steroids within last year will plan to discharge on prolonged steroid taper (21 days) Continue daliresp and symbicort Continue duo nebs q 4 hours Will contact [facility] to see if able to get spiriva as well as current medications obtained form them Has history of JORGE, continue BiPAP at night (2) Diabetes mellitus Current Visit: Yes Status: Chronic Assessment and plan: Chronic. On insulin Blood sugar elevated this morning at 331 Diabeteic diet Will change levemir to 20 units BID dosing Will add novolog 5 units TID withmeals Continue medium dose sliding scale TID with meals and at bedtime Will boyd further adjustments based on glucose measurements Qualifiers: Diabetes mellitus type: type 2 Diabetes mellitus complication status: with hyperglycemia Diabetes mellitus fdc insulin use: with superintendent marine oil terminal use Qualified Code(s): E11.65 - Type 2 diabetes mellitus with hyperglycemia; Z79.4 - buttermaker continuous churn (current) 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; Z79.4 - senior living (current) 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 ; Z79.4 - buttermaker continuous churn (current) 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; Z79.4 - buttermaker continuous churn (current) 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 (3) Anxiety Current Visit: No Status: Chronic Assessment and plan: Chronic. Stable. Continue home klonopin (4) HTN (hypertension) Current Visit: Yes Status: Chronic Assessment and plan: Chronic. Stable Blood pressure normotensive Continue home medications of hyzzar and clonidine Continue lasix Qualifiers: Hypertension type: essential hypertension Qualified Code(s): I10 - Essential (primary) hypertension - Subjective Interval history: 56 year old female with past medical history of COPD on home oxygen (3L) who presented to [place] [facility] with worsening of dyspnea. She was recently admitted from 01/16-01/20 for COPD exacerbation and discharged with prednisone, treated with IV levaquin. Review of EMR indicates that patient has had multiple visits to ER for worsening shortness of breatha nd has received multiple rounds of outpatient steroids and antibiotics. She was previously evaluated by pulmonology but did not follow up, has requested second opinion. Review of EMR indicates that she gets her medications from [place] due to concerns over zayas (symbicort and daliresp). Patient seen and examined this morning at bedside. She reports that she feels her breathing is a little bit better. She states that she takes her medications daily. She was previously prescribed anoro but was unable to afford the medication. She was also previously prescribed spiriva buts tates she was also unable to afford that medication. She does have a smoking history , 2 packs per day for many years. 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 Has used oxygen since 2013 as needed. She was able to tolerate breakfast this morning with no nausea or vomiting. She deneis any issues with urination or bowel movements. She has no other acute complaints at this time. - Constitutional Vitals: Temp Pulse Resp BP Pulse Ox 97.7 F 113 18 114/82 97 02/01/17 07:23 02/01/17 07:23 02/01/17 07:42 02/01/17 07:23 02/01/17 07:42 General appearance: Present: cooperative, mild distress, A&O X 3, pleasant, answers questions appropriately - Head Head exam: Present: atraumatic, normocephalic Additional comments: nasal canula in place - ENT ENT exam: Present: mucous membranes moist - Neck Neck exam general surgery: Present: supple, trachea midline - Respiratory Respiratory exam: Present: decreased breath sounds (bilaterally ), wheezes ( inspiratory and expiratory bilaterally ) - Cardiovascular Cardiovascular exam: Present: +S1, +S2, tachycardia. Absent: clicks, diastolic murmur, distant heart sounds, gallop, rubs, systolic murmur - GI/Abdominal GI/Abdominal exam: Present: normal bowel sounds, soft. Absent: distended, guarding, rebound, tenderness - Extremities Exam Extremities exam: Present: normal capillary refill. Absent: pedal edema - Skin Skin exam: Present: erythema, warm Internal Medicine: Result - Labs CBC & Chem 7: 02/01/17 04:03 02/01/17 04:03 Labs: Short CBC 02/01/17 Range/Units 04:03 WBC 4.8 (4.3-11.1) K/mcL Hgb 10.6 L (11.5-15.4) g/dL Hct 34.7 L (35.3-44.9) % Plt Count 441 H (140-400) K/mcL Neutrophils # 4.0 (1.6-8.9) K/mcL BMP 02/01/17 04:03 Sodium 143 Potassium 3.8 Chloride 105 Carbon Dioxide 22 BUN 17 Creatinine 0.90 Glucose 331 H Calcium 9.5 - ABG Interpretation ABG results: PT/INR, D-dimer PT 12.8 Seconds (9.4-12.1) H 02/01/17 04:03 Consult Discharge Plan - Plan Referrals: Domitila Lau MD [Primary Care Provider] - <Mervin Santos H - Last Filed: 02/01/17 14:22> Date of Encounter: 02/01/17 - Constitutional Vitals: Temp Pulse Resp BP Pulse Ox 98.0 F 118 18 145/80 94 02/01/17 11:44 02/01/17 11:44 02/01/17 11:44 02/01/17 11:44 02/01/17 11:44 Internal Medicine: Result - Labs CBC & Chem 7: 02/01/17 04:03 02/01/17 04:03 Labs: Short CBC 02/01/17 Range/Units 04:03 WBC 4.8 (4.3-11.1) K/mcL Hgb 10.6 L (11.5-15.4) g/dL Hct 34.7 L (35.3-44.9) % Plt Count 441 H (140-400) K/mcL Neutrophils # 4.0 (1.6-8.9) K/mcL BMP 02/01/17 04:03 Sodium 143 Potassium 3.8 Chloride 105 Carbon Dioxide 22 BUN 17 Creatinine 0.90 Glucose 331 H Calcium 9.5 - ABG Interpretation ABG results: PT/INR, D-dimer PT 12.8 Seconds (9.4-12.1) H 02/01/17 04:03 - Attending Attestation Acute chronic hypoxic respiratory failure secondary to acute COPD exacerbation due to acute bacterial bronchitis Continue ceftriaxone and Solu-Medrol I examined this patient and my medical decision-making was reviewed with the Resident Physician. I agree with the documented findings, disposition and treatment plan as described except to the extent set forth below.
--- NOTE | 2017-02-01 14:15 | Electrocardiograph Report ---
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
[2017-02-01] MEDS: 0.9 % Sodium Chloride 1,000 ML IVC SCH (15:12)
--- NOTE | 2017-02-01 17:52 | Electrocardiograph Report ---
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
[2017-02-01] MEDS: amLODIPine 5 MG TABLET PO SCH (21:45)
[2017-02-01] MEDS ORDERED: BENZOCAINE/MENTHOL 1 LOZENGE (BAG OF 6) MM PRN (22:39)
[2017-02-02] MEDS: Ipratropium/Albuterol Neb 3 ML IH SCH ×6 (00:18→19:38)
[2017-02-02] MEDS: Ondansetron 4 MG/2 ML VIAL IVP PRN ×3 (02:50→21:40)
[2017-02-02] MEDS: *HR* Heparin 5,000 UNIT/ML VIAL SQ SCH ×2 (06:09→17:06)
[2017-02-02] MEDS: *HR* OxyCODONE Immed Rel 5 MG TABLET PO PRN ×2 (06:09→12:09)
[2017-02-02] MEDS: cefTRIAXone 1,000 MG in Water for inj. (sterile) 10 ML IVP SCH (08:05)
[2017-02-02] MEDS: Famotidine 20 MG TABLET PO SCH ×2 (08:06→21:40)
[2017-02-02] MEDS: MethylPREDNISolone 40 MG/ML VIAL IVP SCH ×2 (08:06→17:04)
[2017-02-02] MEDS: cloNIDine HCl 0.1 MG TABLET PO SCH ×4 (08:06→21:40)
[2017-02-02] MEDS: clonazePAM 1 MG TABLET PO SCH ×2 (08:06→21:41)
[2017-02-02] MEDS: Loratadine 10 MG TABLET PO SCH (08:06)
[2017-02-02] MEDS: Furosemide 20 MG/2 ML VIAL IVP SCH ×3 (08:06→17:03)
[2017-02-02] MEDS: Insulin LISPRO 300 UNITS/3 ML VIAL SQ SCH ×7 (08:06→21:50)
[2017-02-02] MEDS: Losartan/HCTZ 50-12.5 TABLET PO SCH (08:06)
[2017-02-02] MEDS: Aspirin Enteric Coated 81 MG Tablet PO SCH (08:06)
[2017-02-02] MEDS: Insulin DETEMIR 100 UNIT/ML X5UNITS SQ SCH ×2 (08:11→21:51)
--- NOTE | 2017-02-02 11:23 | Internal Med Progress Note ---
<Ruddy Zhang - Last Filed: 02/02/17 11:40> Date of Encounter: 02/02/17 Time of Encounter: 11:19 - Assessment and plan (1) Acute exacerbation of chronic obstructive airways disease Current Visit: No Status: Acute Assessment and plan: Continues to have persistent wheezing, continue IV Solu-Medrol 40 mg every 8, given the patient's severe COPD she will likely require a long steroid taper. Continue Rocephin for bronchitis coverage. Continue scheduled bronchodilators. Continue BiPAP at night. (2) Diabetes mellitus Current Visit: Yes Status: Chronic Assessment and plan: Blood sugars continue to be elevated. Continue home dose of Levemir 20 units twice a day, will increase preprandial insulin to 10 units with meals and continue sliding scale coverage. Continue to monitor blood sugars and adjust as necessary. Qualifiers: Diabetes mellitus type: type 2 Diabetes mellitus complication status: with hyperglycemia Diabetes mellitus fpc insulin use: with termite exterminator helper use Qualified Code(s): E11.65 - Type 2 diabetes mellitus with hyperglycemia; Z79.4 - termite technician (current) 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; Z79.4 - termite technician (current) 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 ; Z79.4 - residential (current) 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; Z79.4 - termite technician (current) 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 (3) Hypertension Current Visit: No Status: Chronic Assessment and plan: Blood pressure stable. Continue home medications. Qualifiers: Hypertension type: essential hypertension Qualified Code(s): I10 - Essential (primary) hypertension (4) Anxiety Current Visit: No Status: Chronic Assessment and plan: Stable. Continue home medications. (5) DVT prophylaxis Current Visit: Yes Status: Acute Assessment and plan: Heparin 5000 units subcutaneous twice a day. - Subjective Interval history: Patient seen and examined at bedside. Patient states that she feels about the same today. She states that she is continuing to cough with small amounts of sputum. She denies fever, chills. She reports mild sore throat. - Constitutional Vitals: Temp Pulse Resp BP Pulse Ox 98.1 F 64 18 131/83 96 02/02/17 10:53 02/02/17 10:53 02/02/17 10:53 02/02/17 10:53 02/02/17 10:53 General appearance: Present: cooperative, A&O X 3, pleasant, answers questions appropriately - Respiratory Respiratory exam: Present: wheezes (Diffuse end expiratory). Absent: rales, respiratory distress, rhonchi, tachypnea - Cardiovascular Cardiovascular exam: Present: RRR. Absent: gallop, rubs, systolic murmur - GI/Abdominal GI/Abdominal exam: Present: normal bowel sounds, soft. Absent: distended, tenderness - Extremities Exam Extremities exam: Present: pedal edema (trace), warm. Absent: tenderness - Neurological Exam Neurological exam: Present: alert, CN II-XII intact, oriented X3, no focal deficits Internal Medicine: Result - Labs CBC & Chem 7: 02/01/17 04:03 02/01/17 04:03 - ABG Interpretation ABG results: PT/INR, D-dimer PT 12.8 Seconds (9.4-12.1) H 02/01/17 04:03 Consult Discharge Plan - Plan Referrals: Domitila Lau MD [Primary Care Provider] - 02/09/17 12:00 pm (Please follow up as schedule...) <Mervin Santos - Last Filed: 02/02/17 15:11> Date of Encounter: 02/02/17 - Constitutional Vitals: Temp Pulse Resp BP Pulse Ox 98.1 F 64 18 131/83 96 02/02/17 10:53 02/02/17 10:53 02/02/17 11:23 02/02/17 10:53 02/02/17 11:23 Internal Medicine: Result - Labs CBC & Chem 7: 02/01/17 04:03 02/01/17 04:03 - ABG Interpretation ABG results: PT/INR, D-dimer PT 12.8 Seconds (9.4-12.1) H 02/01/17 04:03 - Attending Attestation Acute chronic hypoxic respiratory failure secondary to acute COPD exacerbation due to acute bacterial bronchitis Continue ceftriaxone and Solu-Medrol I examined this patient and my medical decision-making was reviewed with the Resident Physician. I agree with the documented findings, disposition and treatment plan as described except to the extent set forth below.
[2017-02-02] MEDS: BENZOCAINE/MENTHOL 1 LOZENGE (BAG OF 6) MM PRN ×2 (11:51→21:51)
[2017-02-02] MEDS: *HR* Morphine 2 MG/ML SYRINGE IVP PRN ×2 (14:48→21:40)
[2017-02-02] MEDS: amLODIPine 5 MG TABLET PO SCH (21:41)
[2017-02-03] MEDS: Ipratropium/Albuterol Neb 3 ML IH SCH ×7 (00:35→23:28)
[2017-02-03] MEDS: MethylPREDNISolone 40 MG/ML VIAL IVP SCH ×3 (00:48→16:34)
[2017-02-03] MEDS: *HR* Morphine 2 MG/ML SYRINGE IVP PRN ×4 (04:11→20:10)
[2017-02-03] MEDS: *HR* Heparin 5,000 UNIT/ML VIAL SQ SCH ×2 (04:11→16:33)
[2017-02-03 06:09] LABS: Basophils % 0.1 %; Hematocrit 31.6 % (35.3-44.9); Hemoglobin 9.4 g/dL (11.5-15.4); Immature Granulocytes % 0.7 % (0-4); Lymphocytes # 0.5 K/mcL (0.6-4.6); Lymphocytes % 5.5 %; Mean Corpuscular HGB Conc 29.7 g/dL (31.6-35.5); Mean Corpuscular Hemoglobin 25.5 pg (28.0-33.3); Mean Corpuscular Volume 85.9 fL (83.0-100.0); Mean Platelet Volume 10.5 fL (9.4-12.4); Monocytes # 0.2 K/mcL (0.0-1.3); Monocytes % 1.9 %; Neutrophils # 7.7 K/mcL (1.6-8.9); Platelet Count 393 K/mcL (140-400); Red Blood Count 3.68 M/mcL (3.82-4.97); Red Cell Distribution Width 17.3 % (11.5-14.5); Segmented Neutrophils % 91.8 %
[2017-02-03 06:16] LABS: BUN/Creatinine Ratio 38 (6-26); Calcium 8.8 mg/dL (8.6-10.8); Carbon Dioxide 26 mEq/L (19-29); Chloride 103 mEq/L (98-109); Glucose 343 mg/dL (70-99); Osmolality,Calculated 309 (280-300); Potassium 4.7 mEq/L (3.5-4.5); Sodium 139 mEq/L (136-145); eGFR For African Americans > 60 (> 60); eGFR For Non-African Americans > 60 (> 60)
[2017-02-03 06:19] LABS: Blood Urea Nitrogen 33 mg/dL (7-20)
[2017-02-03] MEDS: cefTRIAXone 1,000 MG in Water for inj. (sterile) 10 ML IVP SCH (07:59)
[2017-02-03] MEDS: cloNIDine HCl 0.1 MG TABLET PO SCH ×4 (08:00→20:09)
[2017-02-03] MEDS: Loratadine 10 MG TABLET PO SCH (08:00)
[2017-02-03] MEDS: Ondansetron 4 MG/2 ML VIAL IVP PRN ×2 (08:00→20:10)
[2017-02-03] MEDS: Famotidine 20 MG TABLET PO SCH ×2 (08:01→20:09)
[2017-02-03] MEDS: clonazePAM 1 MG TABLET PO SCH ×2 (08:01→20:09)
[2017-02-03] MEDS: Aspirin Enteric Coated 81 MG Tablet PO SCH (08:01)
[2017-02-03] MEDS: Insulin LISPRO 300 UNITS/3 ML VIAL SQ SCH ×8 (08:01→20:21)
[2017-02-03] MEDS: Furosemide 20 MG/2 ML VIAL IVP SCH ×2 (08:01→16:34)
[2017-02-03] MEDS: Losartan/HCTZ 50-12.5 TABLET PO SCH (08:01)
[2017-02-03 08:23] LABS: BUN/Creatinine Ratio 40 (6-26); Blood Urea Nitrogen 35 mg/dL (7-20); Carbon Dioxide 26 mEq/L (19-29); Chloride 101 mEq/L (98-109); Glucose 357 mg/dL (70-99); Osmolality,Calculated 308 (280-300); Potassium 4.9 mEq/L (3.5-4.5); Sodium 138 mEq/L (136-145); eGFR For African Americans > 60 (> 60); eGFR For Non-African Americans > 60 (> 60)
[2017-02-03] MEDS: Insulin DETEMIR 100 UNIT/ML X5UNITS SQ SCH ×2 (08:24→20:20)
--- NOTE | 2017-02-03 09:24 | Internal Med Progress Note ---
<Brittany Torres - Last Filed: 02/03/17 10:08> Date of Encounter: 02/03/17 Time of Encounter: 09:19 - Assessment and plan (1) Acute exacerbation of chronic obstructive airways disease Current Visit: No Status: Acute Assessment and plan: Continues to have persistent wheezing on exam Given the patient's severe COPD she will likely require a long steroid taper. Has had numerous ER visits and also recent hospitalization with use of steroids. Continue Rocephin (day 3) for bronchitis coverage. Continue scheduled bronchodilators. Continue BiPAP at night. (2) Diabetes mellitus Current Visit: Yes Status: Chronic Assessment and plan: Blood sugars continue to be elevated. Continue home dose of Levemir 20 units twice a day, Preprandial insulin to 10 units with meals and continue sliding scale coverage. Continue to monitor blood sugars and adjust as necessary. Given current use of IV steroids will expect some hyperglycemia. Qualifiers: Diabetes mellitus type: type 2 Diabetes mellitus complication status: with hyperglycemia Diabetes mellitus prison insulin use: with prison use Qualified Code(s): E11.65 - Type 2 diabetes mellitus with hyperglycemia; Z79.4 - terminal operations manager (current) 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; Z79.4 - terminal operations manager (current) 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 ; Z79.4 - terminal operations manager (current) 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; Z79.4 - terminal operations manager (current) 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 (3) Anxiety Current Visit: No Status: Chronic Assessment and plan: Stable. Continue home medications. (4) HTN (hypertension) Current Visit: Yes Status: Chronic Assessment and plan: Chronic. Stable Blood pressure normotensive Continue home medications of hyzzar and clonidine Continue lasix Qualifiers: Hypertension type: essential hypertension Qualified Code(s): I10 - Essential (primary) hypertension - Subjective Interval history: 56 year old female with past medical history of COPD on home oxygen (3L) who presented to [place] ER with worsening of dyspnea. She was recently admitted from 01/16-01/20 for COPD exacerbation and discharged with prednisone, treated with IV levaquin. Review of EMR indicates that patient has had multiple visits to ER for worsening shortness of breatha nd has received multiple rounds of outpatient steroids and antibiotics. She was previously evaluated by pulmonology but did not follow up, has requested second opinion. Review of EMR indicates that she gets her medications from [place] due to concerns over zayas (symbicort and daliresp). Patient seen and examined this morning at bedside. She states that she is feeling perhaps a little better since admission with regards to her breathing but overall is not feeling much better. She is feeling slightly nauseated this morning. She reports she had a bowel movement yesterday. She denies any other concerns at this time. - Constitutional Vitals: Temp Pulse Resp BP Pulse Ox 97.5 F L 51 16 148/70 97 02/03/17 07:04 02/03/17 07:04 02/03/17 07:30 02/03/17 07:04 02/03/17 08:28 General appearance: Present: cooperative, A&O X 3, pleasant, answers questions appropriately - Head Head exam: Present: atraumatic, normocephalic - ENT ENT exam: Present: mucous membranes moist - Neck Neck exam general surgery: Present: supple, trachea midline - Respiratory Respiratory exam: Present: decreased breath sounds, wheezes (inspiratory and expiratory bilaterally ). Absent: accessory muscle use, rales, rhonchi - Cardiovascular Cardiovascular exam: Present: RRR, +S1, +S2. Absent: clicks, diastolic murmur, gallop, rubs, systolic murmur - GI/Abdominal GI/Abdominal exam: Present: normal bowel sounds, soft. Absent: distended, guarding, rebound, tenderness - Extremities Exam Extremities exam: Present: normal capillary refill. Absent: pedal edema - Skin Skin exam: Present: dry, intact, warm Internal Medicine: Result - Labs CBC & Chem 7: 02/03/17 05:34 02/03/17 07:56 Labs: Short CBC 02/03/17 Range/Units 05:34 WBC 8.4 D (4.3-11.1) K/mcL Hgb 9.4 L (11.5-15.4) g/dL Hct 31.6 L (35.3-44.9) % Plt Count 393 (140-400) K/mcL Neutrophils # 7.7 (1.6-8.9) K/mcL BMP 02/03/17 02/03/17 05:34 07:56 Sodium 139 138 Potassium 4.7 H 4.9 H Chloride 103 101 Carbon Dioxide 26 26 BUN 33 H D 35 H Creatinine 0.88 0.87 Glucose 343 H 357 H Calcium 8.8 9.0 - ABG Interpretation ABG results: PT/INR, D-dimer PT 12.8 Seconds (9.4-12.1) H 02/01/17 04:03 Consult Discharge Plan - Plan Referrals: Domitila Lau MD [Primary Care Provider] - 02/09/17 12:00 pm (Please follow up as schedule...) <Mervin Santos - Last Filed: 02/03/17 10:55> Date of Encounter: 02/03/17 - Constitutional Vitals: Temp Pulse Resp BP Pulse Ox 97.5 F L 51 16 148/70 97 02/03/17 07:04 02/03/17 07:04 02/03/17 07:30 02/03/17 07:04 02/03/17 08:28 Internal Medicine: Result - Labs CBC & Chem 7: 02/03/17 05:34 02/03/17 07:56 Labs: Short CBC 02/03/17 Range/Units 05:34 WBC 8.4 D (4.3-11.1) K/mcL Hgb 9.4 L (11.5-15.4) g/dL Hct 31.6 L (35.3-44.9) % Plt Count 393 (140-400) K/mcL Neutrophils # 7.7 (1.6-8.9) K/mcL BMP 02/03/17 02/03/17 05:34 07:56 Sodium 139 138 Potassium 4.7 H 4.9 H Chloride 103 101 Carbon Dioxide 26 26 BUN 33 H D 35 H Creatinine 0.88 0.87 Glucose 343 H 357 H Calcium 8.8 9.0 - ABG Interpretation ABG results: PT/INR, D-dimer PT 12.8 Seconds (9.4-12.1) H 02/01/17 04:03 - Attending Attestation Acute chronic hypoxic respiratory failure secondary to acute COPD exacerbation due to acute bacterial bronchitis Continue ceftriaxone and Solu-Medrol Increased dose so far lispro apt to 15 units 3 times a day plus insulin sliding scale and Levemir 25 units twice a day Hyperglycemia/steroid induced in the setting of diabetes type 2 I examined this patient and my medical decision-making was reviewed with the Resident Physician. I agree with the documented findings, disposition and treatment plan as described except to the extent set forth below.
[2017-02-03] MEDS ORDERED: Insulin DETEMIR 100 UNIT/ML X5UNITS SQ SCH (11:00)
[2017-02-03] MEDS: *HR* OxyCODONE Immed Rel 5 MG TABLET PO PRN (12:18)
[2017-02-03] MEDS: amLODIPine 5 MG TABLET PO SCH (20:09)
[2017-02-04] MEDS: MethylPREDNISolone 40 MG/ML VIAL IVP SCH ×2 (02:01→08:02)
[2017-02-04] MEDS: *HR* Morphine 2 MG/ML SYRINGE IVP PRN (02:01)
--- NOTE | 2017-02-04 02:12 | Event Note ---
Date of Encounter: 02/04/17 Time of Encounter: 01:52 Was notified by nurse of an unwitnessed fall. Patient was found on the floor. She says she had put some new socks on and slipped while she was walking back to bed. She denies any dizziness, light-headedness, or weakness before her fall. She says that she fell and hit her left knee and R shoulder. She denies hitting her head. She denies any LOC. When I examined her, she had no bruising, tenderness, or bleeding found on her head. She had tenderness to her R shoulder but had full ROM and 5/5 strength testing. Her left knee did show some brusing 1 -2 cm. Patient was able to stand and put weight on her L leg. No signs of bleeding. Cardio exam was RRR +S1 +S2 and respiratory exam was with bilateral wheezing. I ordered stat CT scan of the head w/o contrast and x-rays of the right shoulder and left knee. Patient already on fall precautions.
[2017-02-04] MEDS: *HR* OxyCODONE Immed Rel 5 MG TABLET PO PRN (03:37)
[2017-02-04] MEDS: Ipratropium/Albuterol Neb 3 ML IH SCH ×4 (03:54→15:53)
[2017-02-04 04:53] LABS: Basophils % 0.2 %; Hematocrit 32.4 % (35.3-44.9); Hemoglobin 9.8 g/dL (11.5-15.4); Immature Granulocytes % 0.9 % (0-4); Lymphocytes # 0.7 K/mcL (0.6-4.6); Lymphocytes % 7.5 %; Mean Corpuscular HGB Conc 30.2 g/dL (31.6-35.5); Mean Corpuscular Hemoglobin 25.5 pg (28.0-33.3); Mean Corpuscular Volume 84.4 fL (83.0-100.0); Mean Platelet Volume 9.7 fL (9.4-12.4); Monocytes # 0.3 K/mcL (0.0-1.3); Monocytes % 3.7 %; Neutrophils # 7.9 K/mcL (1.6-8.9); Platelet Count 378 K/mcL (140-400); Red Blood Count 3.84 M/mcL (3.82-4.97); Segmented Neutrophils % 87.7 %
[2017-02-04 05:08] LABS: BUN/Creatinine Ratio 42 (6-26); Blood Urea Nitrogen 40 mg/dL (7-20); Calcium 9.1 mg/dL (8.6-10.8); Carbon Dioxide 25 mEq/L (19-29); Chloride 97 mEq/L (98-109); Glucose 294 mg/dL (70-99); Magnesium 1.7 mg/dL (1.6-2.6); Osmolality,Calculated 301 (280-300); Potassium 4.5 mEq/L (3.5-4.5); Sodium 135 mEq/L (136-145); eGFR For African Americans > 60 (> 60); eGFR For Non-African Americans > 60 (> 60)
--- NOTE | 2017-02-04 06:46 | Internal Med Progress Note ---
Date of Encounter: 02/04/17 Time of Encounter: 06:42 - Assessment and plan (1) Acute and chronic respiratory failure with hypoxia Current Visit: Yes Status: Acute Assessment and plan: Secondary to acute COPD exacerbation due to acute bacterial bronchitis Continue ceftriaxone (day #4) and Solu-Medrol 40mg IV Q8 (2) Diabetes mellitus Current Visit: No Status: Acute Assessment and plan: Hyperglycemia steroid induced in the setting of diabetes type 2 Increased dose lispro to 15 units 3 times a day plus insulin sliding scale and increased Levemir 25 units BID with improved glucose control Qualifiers: Diabetes mellitus type: type 2 Diabetes mellitus complication status: with hyperglycemia Diabetes mellitus mcc insulin use: with termite exterminator use Qualified Code(s): E11.65 - Type 2 diabetes mellitus with hyperglycemia; Z79.4 - senior living (current) 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 (3) Anxiety Current Visit: No Status: Chronic Assessment and plan: Stable. Continue home medications. (4) HTN (hypertension) Current Visit: Yes Status: Chronic Assessment and plan: Chronic. Stable 151/81 this morning Continue home medications of hyzzar and clonidine Continue lasix Qualifiers: Hypertension type: essential hypertension Qualified Code(s): I10 - Essential (primary) hypertension - Subjective Interval history: 56 year old female with past medical history of COPD on home oxygen (3L) who presented to [facility] ER with worsening of dyspnea. She was recently admitted from 01/16-01/20 for COPD exacerbation and discharged with prednisone, treated with IV levaquin. Review of EMR indicates that patient has had multiple visits to ER for worsening shortness of breath and has received multiple rounds of outpatient steroids and antibiotics. She was previously evaluated by pulmonology but did not follow up. Review of EMR indicates that she gets her medications from [place] due to concerns over zayas (symbicort and daliresp) - Constitutional Vitals: Temp Pulse Resp BP Pulse Ox 97.6 F 78 18 151/81 99 02/04/17 04:26 02/04/17 04:26 02/04/17 04:26 02/04/17 04:26 02/04/17 04:26 General appearance: Present: cooperative, A&O X 3, pleasant, answers questions appropriately Internal Medicine: Result - Labs CBC & Chem 7: 02/04/17 04:20 02/04/17 04:20 Labs: Short CBC 02/04/17 Range/Units 04:20 WBC 9.0 (4.3-11.1) K/mcL Hgb 9.8 L (11.5-15.4) g/dL Hct 32.4 L (35.3-44.9) % Plt Count 378 (140-400) K/mcL Neutrophils # 7.9 (1.6-8.9) K/mcL BMP 02/03/17 02/04/17 07:56 04:20 Sodium 138 135 L Potassium 4.9 H 4.5 Chloride 101 97 L Carbon Dioxide 26 25 BUN 35 H 40 H Creatinine 0.87 0.95 Glucose 357 H 294 H Calcium 9.0 9.1 - ABG Interpretation ABG results: PT/INR, D-dimer PT 12.8 Seconds (9.4-12.1) H 02/01/17 04:03 - Impressions Impressions Head CT 02/04/17 02:01 IMPRESSION: No acute intracranial abnormality. D/ / Shady Gomes / Shady Gomes Interpreting Provider: Shady Gomes Shoulder X-Ray 02/04/17 02:02 IMPRESSION: No fracture or malalignment. D/ / Wai Infante MD / Wai Infante MD Interpreting Provider: Wai Infante MD Knee X-Ray 02/04/17 02:04 IMPRESSION: No fracture or malalignment. D/ / Wai Infante MD / Wai Infante MD Interpreting Provider: Wai Infante MD Consult Discharge Plan - Plan Referrals: Domitila Lau MD [Primary Care Provider] - 02/09/17 12:00 pm (Please follow up as schedule...)
[2017-02-04 06:48] VITALS: BP 168/87
[2017-02-04] MEDS: *HR* Heparin 5,000 UNIT/ML VIAL SQ SCH (06:59)
[2017-02-04] MEDS: Ondansetron 4 MG/2 ML VIAL IVP PRN (06:59)
[2017-02-04] MEDS: Insulin LISPRO 300 UNITS/3 ML VIAL SQ SCH ×4 (07:59→12:35)
[2017-02-04] MEDS: cloNIDine HCl 0.1 MG TABLET PO SCH ×2 (08:02→12:36)
[2017-02-04] MEDS: cefTRIAXone 1,000 MG in Water for inj. (sterile) 10 ML IVP SCH (08:02)
[2017-02-04] MEDS: Furosemide 20 MG/2 ML VIAL IVP SCH (08:02)
[2017-02-04] MEDS: Losartan/HCTZ 50-12.5 TABLET PO SCH (08:02)
[2017-02-04] MEDS: Loratadine 10 MG TABLET PO SCH (08:02)
[2017-02-04] MEDS: clonazePAM 1 MG TABLET PO SCH (08:03)
[2017-02-04] MEDS: Famotidine 20 MG TABLET PO SCH (08:03)
[2017-02-04] MEDS: Aspirin Enteric Coated 81 MG Tablet PO SCH (08:03)
[2017-02-04] MEDS ORDERED: *HR* Morphine 2 MG/ML SYRINGE IVP PRN (09:48)
[2017-02-04] MEDS: Insulin DETEMIR 100 UNIT/ML X5UNITS SQ SCH (09:55)
[2017-02-04] MEDS ORDERED: predniSONE 20 MG TABLET PO SCH (13:45)
--- NOTE | 2017-02-04 13:46 | Discharge Summary ---
<GoodRadu musa Ruddy - Last Filed: 02/04/17 13:44> Date of Encounter: 02/04/17 Time of Encounter: 13:45 - Discharge Diagnosis (1) Acute and chronic respiratory failure with hypoxia Priority: Primary Status: Acute (2) Diabetes mellitus Priority: Secondary Status: Acute Qualifiers: Diabetes mellitus type: type 2 Diabetes mellitus complication status: with hyperglycemia Diabetes mellitus ferry terminal agent insulin use: with ferry terminal agent use Qualified Code(s): E11.65 - Type 2 diabetes mellitus with hyperglycemia; Z79.4 - terminologist (current) 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 (3) Anxiety Priority: Secondary Status: Chronic (4) HTN (hypertension) Priority: Secondary Status: Chronic Qualifiers: Hypertension type: essential hypertension Qualified Code(s): I10 - Essential (primary) hypertension - Discharge Medications Prescriptions: Cefdinir [Omnicef] 300 mg PO BID #8 capsule Insulin LISPRO [HumaLOG] 15 units SQ TIDWM #4 vial predniSONE [PredniSONE] 10 mg PO DAILY #84 tablet Home Medications: cloNIDine HCl [Clonidine HCl] 0.3 mg PO QID 05/16/16 [History] Oxygen 3 l IH AD 07/19/16 [History] clonazePAM [Klonopin] 1 mg PO BID 07/31/16 [History] Insulin Glargine [Lantus] 40 unit SQ HS 08/10/16 [History] Roflumilast [Daliresp] 500 mcg PO DAILY 08/10/16 [History] amLODIPine [Norvasc] 5 mg PO HS #30 tab 09/30/16 [Rx] Albuterol Sulfate [Ventolin Hfa] 2 puff IH Q4H PRN #1 inh 10/15/16 [Rx] Ondansetron [Zofran] 4 mg PO Q6HR PRN #120 tab 11/10/16 [Rx] Pantoprazole Sodium [Protonix] 40 mg PO BIDWM #60 tablet. 11/10/16 [Rx] Ipratropium/Albuterol Neb [Duoneb] 3 ml IH Q4HR 11/20/16 [History] OxyCODONE Immed Rel [Roxicodone 5 MG] 5 mg PO Q8H PRN 11/20/16 [History] Ranitidine HCl [Zantac] 150 mg PO BID 11/20/16 [History] Aspirin [Lo-Dose Aspirin EC] 81 mg PO DAILY 01/12/17 [History] Loratadine [Allergy Relief] 10 mg PO DAILY 01/16/17 [History] Losartan/Hydrochlorothiazide [Losartan-Hctz 100-25 mg Tab] 1 tab PO DAILY [History] Meclizine [Antivert] 25 mg PO TID PRN 01/16/17 [History] Furosemide [Lasix] 40 mg PO DAILY PRN 01/31/17 [History] Cefdinir [Omnicef] 300 mg PO BID #8 capsule 02/04/17 [Rx] Insulin LISPRO [HumaLOG] 15 units SQ TIDWM #4 vial 02/04/17 [Rx] predniSONE [PredniSONE] 10 mg PO DAILY #84 tablet 02/04/17 [Rx] Allergies/Adverse Reactions: 3 Allergy/AdvReac Type Severity Reaction Status Date / Time NSAIDS (Non-Steroidal Allergy Unknown See Verified 01/16/17 13:40 Anti-Inflamma Comments Penicillins Allergy Unknown Hives Verified 01/16/17 13:40 lisinopril AdvReac Cough Verified 01/16/17 13:40 lorazepam [From Ativan] AdvReac Confusion Verified 02/03/17 06:56 tramadol AdvReac Nausea Verified 01/16/17 13:40 Procedures/tests Complete & Pending: Procedures Performed prior 72 hours Category Date Time Status CT head/brain wo con [CT] Stat Cat Scan 02/04/17 02:01 Completed Date of admission: 01/31/17 20:50 Primary care physician: Domitila Lau MD Discharging clinician: Mervin Santos Anticipated date of discharge: 02/04/17 - Patient Status Disposition: Home, Self-Care Condition: Fair Functional capacity at discharge: uses cane/walker Overall status at discharge: patient is progressing back to baseline - Discharge Instructions Follow Up With: Domitila Lau MD [Primary Care Provider] - 02/09/17 12:00 pm (Please follow up as schedule...) - Diet and Activity Activity: increase activity as tolerated Diet: diabetic diet Hospital course: Ms. Ren is a 57 year old female with past medical history of COPD on home oxygen (3L) who presented to [place] ER with worsening of dyspnea. She had another recent admission from 01/16-01/20 for COPD exacerbation treated with IV levaquin and discharged with oral prednisone. Patient has had multiple visits to ER for worsening shortness of breath and has received multiple rounds of outpatient steroids and antibiotics. She was previously evaluated by pulmonology but did not follow up. During current admission 01/31 - 02/04/17, patient was placed on IV ceftriaxone and Solu-Medrol 40 mg IV every 8 hours. She will be sent home with a prescription for Omnicef to continue for another 4 days post-hospitalization. We also sent her home with a prescription for a prolonged taper of oral steroids and increased her insulin to compensate for resultant hyperglycemia - Time Spent with Patient Total time spent providing and/or coordinating discharge services: Greater than 30 minutes - Constitutional Vitals: Temp Pulse Resp BP Pulse Ox 98.7 F 62 18 168/87 96 02/04/17 06:47 02/04/17 06:47 02/04/17 11:14 02/04/17 06:47 02/04/17 11:14 General appearance: Present: cooperative, A&O X 3, pleasant, answers questions appropriately - Respiratory Respiratory exam: Present: wheezes (diffuse inspiratory and expiratory). Absent : accessory muscle use, rales, rhonchi - Cardiovascular Cardiovascular exam: Present: RRR, +S1, +S2. Absent: diastolic murmur, gallop, rubs, systolic murmur - GI/Abdominal GI/Abdominal exam: Present: normal bowel sounds, soft, no peritoneal signs. Absent: distended, tenderness - Extremities Exam Extremities exam: Present: warm, radial pulses palpable and symmetrical. Absent : calf tenderness, cyanotic, pedal edema - Neurological Exam Neurological exam: Present: alert, oriented X3, no focal deficits <Mervin Santos - Last Filed: 02/04/17 14:25> Date of Encounter: 02/04/17 Procedures/tests Complete & Pending: Procedures Performed prior 72 hours Category Date Time Status CT head/brain wo con [CT] Stat Cat Scan 02/04/17 02:01 Completed Date of admission: 01/31/17 20:50 Primary care physician: Domitila Lau MD Hospital course: Ms. Ren is a 57 year old female - Time Spent with Patient Total time spent providing and/or coordinating discharge services: - Constitutional Vitals: Temp Pulse Resp BP Pulse Ox 98.7 F 62 18 168/87 96 02/04/17 06:47 02/04/17 06:47 02/04/17 11:14 02/04/17 06:47 02/04/17 11:14 - Attending Attestation Acute chronic hypoxic respiratory failure secondary to acute COPD exacerbation due to acute bacterial bronchitis Continue cefdinir and taper prednisone Hyperglycemia/steroid induced in the setting of diabetes type 2 time spent : 40 min I examined this patient and my medical decision-making was reviewed with the Resident Physician. I agree with the documented findings, disposition and treatment plan as described except to the extent set forth below.
--- NOTE | 2017-02-04 14:25 | Physician Discharge Referral ---
Home Health/Hosp Referral Info Transfer to: Home Health Provider in Charge Post Discharge: PCP - Diagnosis (1) Acute and chronic respiratory failure with hypoxia Priority: Primary Status: Acute (2) Diabetes mellitus Priority: Secondary Status: Acute (3) Anxiety Priority: Secondary Status: Chronic (4) HTN (hypertension) Priority: Secondary Status: Chronic - Respiratory Orders Oxygen / L per min (3 L nasal cannula) Smoking Cessation: Smoking cessation has been advised. For more information, call the [place] Tobacco Quit Line at 8-339-DXTW-NOW. - Diet/Nutrition Diet/Nutrition Orders: No Concentrated Sweets (Diabetic Diet) - Activity Activity Orders: Up ad nicole, Ambulate, Walker - Services Needed Following services are medically necessary services: Home Health Aide - Transfer Medications Prescriptions: Cefdinir [Omnicef] 300 mg PO BID #8 capsule Insulin LISPRO [HumaLOG] 15 units SQ TIDWM #4 vial predniSONE [PredniSONE] 10 mg PO DAILY #84 tablet Home Medications: cloNIDine HCl [Clonidine HCl] 0.3 mg PO QID 05/16/16 [History] Oxygen 3 l IH AD 07/19/16 [History] clonazePAM [Klonopin] 1 mg PO BID 07/31/16 [History] Insulin Glargine [Lantus] 40 unit SQ HS 08/10/16 [History] Roflumilast [Daliresp] 500 mcg PO DAILY 08/10/16 [History] amLODIPine [Norvasc] 5 mg PO HS #30 tab 09/30/16 [Rx] Albuterol Sulfate [Ventolin Hfa] 2 puff IH Q4H PRN #1 inh 10/15/16 [Rx] Ondansetron [Zofran] 4 mg PO Q6HR PRN #120 tab 11/10/16 [Rx] Pantoprazole Sodium [Protonix] 40 mg PO BIDWM #60 tablet. 11/10/16 [Rx] Ipratropium/Albuterol Neb [Duoneb] 3 ml IH Q4HR 11/20/16 [History] OxyCODONE Immed Rel [Roxicodone 5 MG] 5 mg PO Q8H PRN 11/20/16 [History] Ranitidine HCl [Zantac] 150 mg PO BID 11/20/16 [History] Aspirin [Lo-Dose Aspirin EC] 81 mg PO DAILY 01/12/17 [History] Loratadine [Allergy Relief] 10 mg PO DAILY 01/16/17 [History] Losartan/Hydrochlorothiazide [Losartan-Hctz 100-25 mg Tab] 1 tab PO DAILY [History] Meclizine [Antivert] 25 mg PO TID PRN 01/16/17 [History] Furosemide [Lasix] 40 mg PO DAILY PRN 01/31/17 [History] Cefdinir [Omnicef] 300 mg PO BID #8 capsule 02/04/17 [Rx] Insulin LISPRO [HumaLOG] 15 units SQ TIDWM #4 vial 02/04/17 [Rx] predniSONE [PredniSONE] 10 mg PO DAILY #84 tablet 02/04/17 [Rx] Allergies/Adverse Reactions: 3 Allergy/AdvReac Type Severity Reaction Status Date / Time NSAIDS (Non-Steroidal Allergy Unknown See Verified 01/16/17 13:40 Anti-Inflamma Comments Penicillins Allergy Unknown Hives Verified 01/16/17 13:40 lisinopril AdvReac Cough Verified 01/16/17 13:40 lorazepam [From Ativan] AdvReac Confusion Verified 02/03/17 06:56 tramadol AdvReac Nausea Verified 01/16/17 13:40 Certification: Further, I certify that my clinical findings support that this patient is homebound (i.e. absences from home require considerable and taxing effort and are for medical reasons or jew services or infrequently or short duration when for other reasons) because: Homebound Reason: Patient requires assistance of a person or device to safely leave home Attestation: My signature below is to certify that this patient is under my care and that I, or nurse practitioner, or a physician's miner assistant working with me, has a face-to -face encounter with this patient.
== END 2017-02-04 16:02 | disposition home or self-care (01) | DRG 190 ==
LOC: EMEROO 12:12 → 2ANU 12:12 → SUATTDRO 20:50
PROVIDERS: ADMIT Family Medicine; ATTEND Internal Medicine

== ENCOUNTER 2017-05-02 04:53 | Observation (INO) ==
[2017-05-02] MEDS ORDERED: methylPREDNISolone 125 MG/2 ML VIAL IVP ONE (05:02)
[2017-05-02] MEDS ORDERED: Ipratropium/Albuterol Neb 3 ML IH ONE (05:02)
[2017-05-02] MEDS ORDERED: 0.9 % Sodium Chloride 500 ML IVC ONE (05:09)
[2017-05-02 05:33] LABS: Basophils % 0.4 %; Eosinophils # 0.1 K/mcL (0.0-0.6); Eosinophils % 1.1 %; Hematocrit 35.5 % (35.3-44.9); Hemoglobin 10.5 g/dL (11.5-15.4); Lymphocytes # 1.8 K/mcL (0.6-4.6); Lymphocytes % 20.9 %; Mean Corpuscular HGB Conc 29.6 g/dL (31.6-35.5); Mean Corpuscular Hemoglobin 25.9 pg (28.0-33.3); Mean Corpuscular Volume 87.7 fL (83.0-100.0); Mean Platelet Volume 11.1 fL (9.4-12.4); Monocytes # 0.7 K/mcL (0.0-1.3); Monocytes % 8.3 %; Neutrophils # 5.7 K/mcL (1.6-8.9); Platelet Count 357 K/mcL (140-400); Red Blood Count 4.05 M/mcL (3.82-4.97); Segmented Neutrophils % 67.3 %
[2017-05-02 05:46] LABS: Troponin I 0.03 ng/mL (< 0.04)
[2017-05-02 05:47] LABS: BUN/Creatinine Ratio 22 (6-26); Blood Urea Nitrogen 13 mg/dL (6-20); Calcium 9.5 mg/dL (8.6-10.3); Carbon Dioxide 21 mEq/L (23-29); Chloride 107 mEq/L (98-107); Glucose 170 mg/dL (70-105); Osmolality,Calculated 288 (280-300); Potassium 3.5 mEq/L (3.5-5.1); Sodium 137 mEq/L (136-145); eGFR For African Americans > 60 (> 60); eGFR For Non-African Americans > 60 (> 60)
[2017-05-02] MEDS ORDERED: *HR* OxyCODONE/APAP 5/325 TABLET PO ONE (05:55)
--- NOTE | 2017-05-02 06:03 | Emergency Department Note ---
START Narrative - START START: I examined this patient and my medical decision-making was reviewed with the Resident Physician. I agree with the documented findings, disposition and treatment plan as described except to the extent set forth below. 57 year old lyla with history of COPD and waer 3lnc continously at home and states that she has been feeling increasinlgy mroe short of breath. IT appears taht she has MAT or sinus tacycardia and has a resting HR of 130-140s and is currently 151. Steven has recieved breathing tretment before arrival and we have given her more breathign treatment here and she states that she doesnt feel any better. cardiopulmonary workup is negative but she did not tolerate the walk test. WE will admit to medicine.
--- NOTE | 2017-05-02 06:07 | Emergency Department Note ---
Disposition Clinical Impression: COPD exacerbation, Tachycardia Disposition: Admitted As Inpatient Condition: Good Referrals: Domitila Lau MD [Primary Care Provider] - Forms: ED Satisfaction Letter Time of Disposition: 06:24 General Adult HPI - General Chief complaint: ED Shortness of Breath/Dyspnea Stated complaint: max hx of copd Time Seen by Provider: 05/02/17 04:56 Source: patient, family Mode of arrival: ambulatory Limitations: no limitations Nursing Notes Reviewed: Yes Vital Signs Reviewed: Yes - History of Present Illness HPI Narrative: A 57-year-old female with significant past medical history of COPD history on chronic home oxygen use 3 L all day presented to the emergency Department chief complaint of increasing shortness of breath. The past couple days she has been having increased shortness of breath. Patient denies fever, chest pain, abdominal pain, nausea, vomiting or diarrhea. Patient has been seen multiple times in the past emergency department for these symptoms. She states she has been trying breathing treatments at home with minimal to no relief. Patient has not had steroids for "a couple weeks". Pain Scale: 0 - Related Data Home Medications Medication Instructions Recorded Confirmed cloNIDine HCl [Clonidine HCl] 0.3 mg PO QID 05/16/16 01/31/17 Oxygen 3 l IH AD 07/19/16 01/31/17 clonazePAM [Klonopin] 1 mg PO BID 07/31/16 01/31/17 Insulin Glargine [Lantus] 40 unit SQ HS 08/10/16 01/31/17 Roflumilast [Daliresp] 500 mcg PO DAILY 08/10/16 01/31/17 Ipratropium/Albuterol Neb [Duoneb] 3 ml IH Q4HR 11/20/16 01/31/17 OxyCODONE Immed Rel [Roxicodone 5 5 mg PO Q8H PRN 11/20/16 01/31/17 MG] Ranitidine HCl [Zantac] 150 mg PO BID 11/20/16 01/31/17 Aspirin [Lo-Dose Aspirin EC] 81 mg PO DAILY 01/12/17 01/31/17 Loratadine [Allergy Relief] 10 mg PO DAILY 01/16/17 01/31/17 Losartan/Hydrochlorothiazide 1 tab PO DAILY 01/16/17 01/31/17 [Losartan-Hctz 100-25 mg Tab] Meclizine [Antivert] 25 mg PO TID PRN 01/16/17 01/31/17 Furosemide [Lasix] 40 mg PO DAILY PRN 01/31/17 01/31/17 Previous Rx's Medication Instructions Recorded amLODIPine [Norvasc] 5 mg PO HS #30 tab 09/30/16 Albuterol Sulfate [Ventolin Hfa] 2 puff IH Q4H PRN #1 inh 10/15/16 Ondansetron [Zofran] 4 mg PO Q6HR PRN #120 tab 11/10/16 Pantoprazole Sodium [Protonix] 40 mg PO BIDWM #60 tablet. 11/10/16 Cefdinir [Omnicef] 300 mg PO BID #8 capsule 02/04/17 Insulin LISPRO [HumaLOG] 15 units SQ TIDWM #4 vial 02/04/17 predniSONE [PredniSONE] 10 mg PO DAILY #84 tablet 02/04/17 Ondansetron ODT [Zofran ODT] 4 mg SL Q8HR PRN #9 tab.rapdis 02/23/17 Azithromycin [Azithromycin 6-Tab 250 mg PO PER PKG DI #6 tab 02/27/17 Pack] predniSONE [PredniSONE] 10 mg PO DAILY #5 tablet 02/27/17 predniSONE [Prednisone] 50 mg PO DAILY #5 tablet 03/15/17 PredniSONE [Deltasone] 40 mg PO DAILY #10 tablet 03/18/17 Azithromycin [Azithromycin 6-Tab 250 mg PO PER PKG DI #6 tab 03/23/17 Pack] predniSONE [PredniSONE] 60 mg PO ONCE #42 tablet 03/23/17 Allergies Allergy/AdvReac Type Severity Reaction Status Date / Time NSAIDS (Non-Steroidal Allergy Unknown See Verified 03/23/17 09:30 Anti-Inflamma Comments Penicillins Allergy Unknown Hives Verified 03/23/17 09:30 lisinopril AdvReac Cough Verified 03/23/17 09:30 lorazepam [From Ativan] AdvReac Confusion Verified 03/23/17 09:30 tramadol AdvReac Nausea Verified 03/23/17 09:30 All systems ED: reviewed and negative except as stated. Cardiovascular: Reports: dyspnea on exertion Respiratory: Reports: cough, dyspnea Past Medical History - Past Medical History Attestation: Yes The following information was validated with the patient. 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 Absent: scleral icterus, conjunctival injection - ENT ENT exam: normal exam, mucous membranes moist - Neck Neck exam: Present: normal inspection, full ROM. Absent: tenderness, meningismus - Chest Chest inspection: Present: normal inspection, symmetric chest wall rise. Absent : tenderness, rash - Respiratory Respiratory exam: Present: other (decreased breath sounds throughout) - Cardiovascular Cardiovascular exam: Present: tachycardia, normal heart sounds - Abdominal Exam Abdominal exam: Present: soft, Non-Tender. Absent: distention, guarding, rebound - Extremities Exam Extremities exam: Present: normal inspection, full ROM - Neurological Exam Neurological exam: Present: alert, oriented X3 - Psychiatric Psychiatric exam: Present: normal affect, normal mood - Skin Skin exam: Present: warm, intact Course Course Narrative: 57-year-old female with significant past medical history of COPD coming in for increased shortness of breath. Patient on 3 L nasal cannula oxygen at home all the time. Patient has been trying breathing treatments at home with no relief. On arrival patient is tachycardic. On 3 L she is 95% or greater pulse ox. Vital signs otherwise stable. We will perform a dyspnea workup. Disposition pending results. Patient agrees with this plan. - Reevaluation(s) Reevaluation #1: All patient's lab work and x-ray have returned. Unchanged from baseline. After 3 gnrz-dt-anti do nebs and steroids patient states she is still not feeling well. She is also still tachycardic in the 140s. We will provide the patient with 500 mL fluid bolus along with a Cardizem dose IV. At this time we will plan to admit the patient for COPD exacerbation and tachycardia. Patient is alert and oriented 3 in the room. She agrees with this plan. I spoke with the hospitalist on-call Dr. Aparicio who agrees to accept the patient. Vital Signs Temperature 97.8 F 05/02/17 04:58 Pulse Rate 142 05/02/17 04:58 Respiratory Rate 20 05/02/17 04:58 Blood Pressure 155/95 05/02/17 04:58 O2 Sat by Pulse Oximetry 96 05/02/17 04:58 Temperature 97.8 F 05/02/17 04:58 Pulse Rate 148 05/02/17 05:49 Respiratory Rate 22 05/02/17 05:49 Blood Pressure 138/88 05/02/17 05:49 O2 Sat by Pulse Oximetry 97 05/02/17 05:49 Oxygen Delivery Oxygen Delivery Nasal Cannula Medical Decision Making - Lab Data Result diagrams: 05/02/17 05:12 05/02/17 05:12 Lab Results 05/02/17 05/02/17 05/02/17 Range/Units 05:12 05:12 05:12 WBC 8.5 (4.3-11.1) K/mcL RBC 4.05 (3.82-4.97) M/mcL Hgb 10.5 L (11.5-15.4) g/dL Hct 35.5 (35.3-44.9) % MCV 87.7 (83.0-100.0) fL MCH 25.9 L (28.0-33.3) pg MCHC 29.6 L (31.6-35.5) g/dL RDW 18.0 H (11.5-14.5) % Plt Count 357 (140-400) K/mcL MPV 11.1 (9.4-12.4) fL Immature Gran % 2.0 (0-4) % Seg Neutrophils % 67.3 % Lymphocytes % 20.9 % Monocytes % 8.3 % Eosinophils % 1.1 % Basophils % 0.4 % Neutrophils # 5.7 (1.6-8.9) K/mcL Lymphocytes # 1.8 (0.6-4.6) K/mcL Monocytes # 0.7 (0.0-1.3) K/mcL Eosinophils # 0.1 (0.0-0.6) K/mcL Basophils # 0.0 (0.0-0.2) K/mcL Sodium 137 (136-145) mEq/L Potassium 3.5 (3.5-5.1) mEq/L Chloride 107 (98-107) mEq/L Carbon Dioxide 21 L (23-29) mEq/L BUN 13 (6-20) mg/dL Creatinine 0.59 L (0.60-1.20) mg/dL Est GFR ( Amer) > 60 (> 60) Est GFR (Non-Af Amer) > 60 (> 60) BUN/Creatinine Ratio 22 (6-26) Glucose 170 H (70-105) mg/dL Calculated Osmolality 288 (280-300) Calcium 9.5 (8.6-10.3) mg/dL Troponin I 0.03 (< 0.04) ng/mL B-Natriuretic Peptide 35 (Less than 100) pg/mL - EKG Data EKG #1 EKG attestation: Yes I reviewed and interpreted this EKG. EKG results narrative: Sinus tachycardia. 151 bpm. MO interval 136, QRS 71, QTc 402. No signs of acute ST segment elevation or ischemia. Compared to previous EKG completed on 03/23/2017 no significant changes noted
[2017-05-02] MEDS ORDERED: Naloxone 0.4 MG/ML INJ IVP PRN (08:25)
[2017-05-02] MEDS ORDERED: *HR* Dextrose 50 % in Water (Syg) 50 ML SYRINGE IVP PRN (08:44)
[2017-05-02] MEDS ORDERED: D5% in Water 1,000 ML IVC PRN (08:44)
[2017-05-02] MEDS ORDERED: Dextrose Gel 15 GM/37.5 ML TUBE PO PRN ×2 (08:44)
[2017-05-02] MEDS ORDERED: Azithromycin 250 MG TABLET PO ONE (08:49)
--- NOTE | 2017-05-02 08:51 | Internal Med History&Physical ---
<Martinez Camilo - Last Filed: 05/02/17 19:32> Date of Encounter: 05/02/17 Time of Encounter: 08:00 Assessment and Plan (1) Acute exacerbation of chronic obstructive airways disease Current visit: Yes Status: Acute SOB for 2 days. She has history of multiple hospitalizations for COPD exacerbation. CXR showed stable small L pleural effusion when compared to CXR from 03/10. Productive cough with green sputum. No signs of fever. Will place patient on azithromycin 500 mg for the first day, followed by 250 mg for the next 4 days. (2) Sinus tachycardia Current visit: Yes Status: Resolved Pulse rate in 140s. Her tachycardia seems to be a chronic issue from records shown back to 3 months ago, although patient says she has had this issue for several years. Troponin was negative. BNP was normal at 35. Last echo was done in 11/07 and showed an EF of 65-70%. She complains of new onset othopnea for the past month. Will order ehcocardiogram. Patient has appointment with Dr. Peterson in Cardiology on 05/06/17. (3) Diabetes mellitus Current visit: No Status: Chronic Glucose elevated at 170. Steroid use likely contributing to hyperglycemia. Continued home medication of lantus 40 mg QHS and added sliding scale. Qualifiers: Diabetes mellitus type: type 2 Diabetes mellitus keno terminal operator insulin use: with keno terminal operator use Diabetes mellitus complication status: with hyperglycemia Qualified Code(s): E11.65 - Type 2 diabetes mellitus with hyperglycemia; Z79.4 - terminal carman (current) 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; Z79.4 - jail (current) 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; Z79.4 - terminal carman (current) 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; Z79.4 - terminal carman (current ) 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 (4) Hypertension Current visit: No Status: Chronic Resume home medications. Qualifiers: Hypertension type: essential hypertension Qualified Code(s): I10 - Essential (primary) hypertension (5) GERD (gastroesophageal reflux disease) Current visit: Yes Status: Chronic Resume home medications. Qualifiers: Esophagitis presence: without esophagitis Qualified Code(s): K21.9 - Gastro -esophageal reflux disease without esophagitis (6) DVT prophylaxis Current visit: Yes Status: Acute Lovenox 40 mg SQ qd. Internal Medicine - H&P: HPI Chief complaint: Shortness of breath Admitted From: Emergency Dept History of present illness: Ms. Ren is a 57 year old female with a PMH of COPD, CHF, GERD, HLD and HTN that presents for shortness of breath. Patient said her symptoms began 2 days ago and was getting progressively worse until she came to the ED earlier this morning. Patient has a history of multiple hospitalizations for COPD exacerbation, with her last one being in February of this year. She denies any chest pain or fever. She admits to a productive cough with green sputum for 2 days. Denies any hemoptysis. She admits ot nausea and generalized abdominal pain , but denies any vomiting. Denies any diarrehea, constipation, or blood in stools. Denies any sick contacts at home. Patient is on oxygen at home, usually 3L. When at the ED, O2 sat was 95% on 3 L. She was given duonebs and steroids. Patient was also tachycardic in the ED. She was given 500 ml fluid bolus and cardizem IV. She says her tachycardia is a chronic issue she's had since she was 26. She complains or orthopnea for the past month. Last echcocardiogram was in 11/07 which showed an EF of 65-70%. Troponin was negative and BNP is in normal range. Past Med Surg Social Fam HX - Past Medical History Medical history: asthma, CHF, COPD, diabetes, GERD, hyperlipidemia, hypertension , renal disease Psychiatric history: anxiety - Past Surgical History Surgical History: appendectomy, cholecystectomy, knee replacement, other - Social History Smoking Status: Former smoker Smokeless Tobacco Status: No Alcohol use: none Drug use: none - Family History Father History Unknown: Yes Name: Sudhir Ley Family Member Ethnicity: Non- Living Status: Age at : 39 Cause of : Heart Disease Hx Family Cardiac Disorders: Yes Hx Family Respiratory Disorders: No Hx Family Cancer: No Hx Family GI Disorders: No Hx Family Genitourinary Disorders: No Hx Family Endocrine Disorder: No Hx Family Musculoskeletal Disorders: No Hx Family Neuromuscular Disorders: No Hx Family Neurologic Disorders: No Hx Family HEENT Disorders: No Hx Family Autoimmune Disorders: No Hx Family Reproductive Disorders: No Hx Family Psychosocial Disorders: No Hx Family Medical Disorders: Yes Mother History Unknown: Yes Adopted: [place]: uJanita Singh Age: 80 Family Member Ethnicity: Non- Living Status: Still Living Hx Family Cardiac Disorders: No Hx Family Respiratory Disorders: No Hx Family Cancer: No Hx Family GI Disorders: No Hx Family Genitourinary Disorders: No Hx Family Endocrine Disorder: Yes (Diabetes) Hx Family Musculoskeletal Disorders: No Hx Family Neuromuscular Disorders: No Hx Family Neurologic Disorders: No Hx Family HEENT Disorders: No Hx Family Autoimmune Disorders: Yes (Arthritis) Hx Family Reproductive Disorders: No Hx Family Psychosocial Disorders: No Hx Family Medical Disorders: No Internal Medicine - H&P: Meds cloNIDine HCl [Clonidine HCl] 0.3 mg PO QID 05/16/16 [History] Oxygen 3 l IH AD 07/19/16 [History] Insulin Glargine [Lantus] 40 unit SQ HS 08/10/16 [History] Roflumilast [Daliresp] 500 mcg PO DAILY 08/10/16 [History] amLODIPine [Norvasc] 5 mg PO HS #30 tab 09/30/16 [Rx] Albuterol Sulfate [Ventolin Hfa] 2 puff IH Q4H PRN #1 inh 10/15/16 [Rx] Pantoprazole Sodium [Protonix] 40 mg PO BIDWM #60 tablet. 11/10/16 [Rx] Ipratropium/Albuterol Neb [Duoneb] 3 ml IH Q4HR 11/20/16 [History] Ranitidine HCl [Zantac] 150 mg PO DAILY 11/20/16 [History] Aspirin [Lo-Dose Aspirin EC] 81 mg PO DAILY 01/12/17 [History] Loratadine [Allergy Relief] 10 mg PO DAILY 01/16/17 [History] Losartan/Hydrochlorothiazide [Losartan-Hctz 100-25 mg Tab] 1 tab PO DAILY [History] Meclizine [Antivert] 25 mg PO TID PRN 01/16/17 [History] Furosemide [Lasix] 40 mg PO DAILY PRN 01/31/17 [History] Insulin LISPRO [HumaLOG] 0 units SQ TID 05/02/17 [History] 3 Allergy/AdvReac Type Severity Reaction Status Date / Time NSAIDS (Non-Steroidal Allergy Unknown See Verified 03/23/17 09:30 Anti-Inflamma Comments Penicillins Allergy Unknown Hives Verified 03/23/17 09:30 lisinopril AdvReac Cough Verified 03/23/17 09:30 lorazepam [From Ativan] AdvReac Confusion Verified 03/23/17 09:30 tramadol AdvReac Nausea Verified 03/23/17 09:30 All Systems PM: A 10-system review of systems was performed and is negative for pertinent findings except as documented above in the HPI. - Constitutional Constitutional: no chills, no fever(s), no night sweats - EENT Eyes: no change in vision, no discharge, no pain, no photophobia Nose, mouth and throat: no dysphagia, no nasal discharge, no neck pain, no sore throat - Cardiovascular Cardiovascular ROS IM: dyspnea (Minor. Improved with medications given in ED.), orthopnea, no chest pain, no edema, no lightheadedness - Respiratory Respiratory: cough, wheezing - Gastrointestinal Gastrointestinal: abdominal pain (Generalized. ), nausea, no change in stool character, no diarrhea, no vomiting - Musculoskeletal Musculoskeletal ROS IM: myalgias (Chronic.) - Constitutional Vitals: Temp Pulse Resp BP Pulse Ox 98.5 F 144 20 133/102 96 05/02/17 08:01 05/02/17 08:01 05/02/17 08:01 05/02/17 08:01 05/02/17 08:01 General appearance: Present: A&O X 3, no acute distress, obese - Eye Eye exam: Present: PERRL, conjuntiva pink, sclera anicteric Pupils: Present: PERRL - Respiratory Respiratory exam: Present: wheezes (Minor wheezing b/l most prominent on posterior posts. ). Absent: accessory muscle use, tachypnea - Cardiovascular Cardiovascular exam: Present: +S1, +S2, tachycardia. Absent: diastolic murmur, gallop - GI/Abdominal GI/Abdominal exam: Present: normal bowel sounds, soft, tenderness (Minor tenderness x 4 quadrants. ), no peritoneal signs. Absent: distended, guarding, rebound - Extremities Exam Extremities exam: Present: normal capillary refill, warm, radial pulses palpable and symmetrical. Absent: calf tenderness, cyanotic, pedal edema - Skin Skin exam: Present: dry, intact, normal color Internal Med - H&P Results - Labs CBC & Chem 7: 05/02/17 05:12 05/02/17 05:12 <Chepe Law - Last Filed: 05/03/17 12:24> Date of Encounter: 05/03/17 Internal Medicine - H&P: HPI History of present illness: Ms. Ren is a 57 year old female All Systems PM: A 10-system review of systems was performed and is negative for pertinent findings except as documented above in the HPI. - Constitutional Vitals: Temp Pulse Resp BP Pulse Ox 97.6 F 112 18 112/60 95 05/03/17 12:09 05/03/17 12:09 05/03/17 12:09 05/03/17 12:09 05/03/17 12:09 Internal Med - H&P Results - Labs CBC & Chem 7: 05/03/17 06:01 05/03/17 06:01 Labs: Short CBC 05/03/17 Range/Units 06:01 WBC 11.7 H (4.3-11.1) K/mcL Hgb 9.6 L (11.5-15.4) g/dL Hct 31.9 L (35.3-44.9) % Plt Count 372 (140-400) K/mcL Neutrophils # 10.6 H (1.6-8.9) K/mcL BMP 05/03/17 06:01 Sodium 139 Potassium 3.5 Chloride 105 Carbon Dioxide 22 L BUN 23 H Creatinine 0.59 L Glucose 324 H Calcium 8.5 L - Impressions ITS Impressions Echocardiogram 05/02/17 08:46 Impressions: LVEF 65-70%. Indeterminate diastolic function. Normal right ventricular structure and function. No significant valvular dysfunction. No pulmonary hypertension. Left Ventricular Wall Motion: Rest Echo Findings All wall segments showed normal motion. Findings: Study Quality * Technically adequate exam. ECG Findings * Sinus tachycardia. Left Ventricle * LVEF 65-70%. * Indeterminate diastolic function. * Normal LV size and wall thickness. Right Ventricle * Normal right ventricular structure and function. Left Atrium * Normal left atrial size. Right Atrium * Normal right atrial size. Aortic Valve * No aortic regurgitation. * No aortic stenosis. * Aortic valve not well visualized. Mitral Valve * No mitral regurgitation. * Normal mitral valve structure. * No mitral stenosis. Tricuspid Valve * Tricuspid valve not well visualized. * No tricuspid regurgitation. * Estimated RA pressure is 3 mmHg. Pulmonic Valve * Pulmonic valve is not well visualized. * No pulmonic stenosis. * No pulmonic regurgitation. Pulmonary Artery * Pulmonary artery not well visualized. Aorta * Suboptimally visualized. Pericardium * There is no pericardial effusion present. Interatrial Septum * No evidence of PFO by color Doppler. IVC * Normal IVC dimensions and inspiratory collapse. - Attending Attestation I examined this patient and my medical decision-making was reviewed with the Resident Physician. I agree with the documented findings, disposition and treatment plan as described except to the extent set forth below.
[2017-05-02] MEDS: Ipratropium/Albuterol Neb 3 ML IH SCH ×4 (10:31→21:28)
[2017-05-02] MEDS: Acetaminophen 325 MG TABLET PO PRN ×2 (11:06→20:25)
[2017-05-02] MEDS: Insulin LISPRO 300 UNITS/3 ML VIAL SQ SCH ×2 (12:06→17:52)
[2017-05-02] MEDS: Aspirin Enteric Coated 81 MG Tablet PO SCH (12:07)
[2017-05-02] MEDS: Famotidine 20 MG TABLET PO SCH (12:07)
[2017-05-02] MEDS: Loratadine 10 MG TABLET PO SCH (12:07)
[2017-05-02] MEDS: Losartan/HCTZ 50-12.5 TABLET PO SCH (12:07)
[2017-05-02] MEDS: cloNIDine HCl 0.1 MG TABLET PO SCH ×3 (12:07→20:24)
[2017-05-02] MEDS: predniSONE 20 MG TABLET PO SCH (17:52)
[2017-05-02] MEDS: Ondansetron 4 MG/2 ML VIAL IVP PRN (17:58)
[2017-05-02] MEDS: amLODIPine 5 MG TABLET PO SCH (20:25)
[2017-05-02] MEDS: Insulin DETEMIR 100 UNIT/ML X5UNITS SQ SCH (20:25)
--- NOTE | 2017-05-02 20:25 | Electrocardiograph Report ---
[place] [id number] Test Date: 2017-05-02 Pat Name: Nora Ren Department: 104 Room: 2A Gender: F Black[employer] Spreader: : 1960 Requested By: Maribel Somers Order Number: [id number] Reading MD: Low Cordova MD Measurements Intervals [place] Rate: 151 P: 19 NC: 136 QRS: 66 QRSD: 71 T: 58 QT: 316 QTc: 402 Interpretive Statements SINUS TACHYCARDIA LOW QRS VOLTAGE IN PRECORDIAL LEADS Electronically Signed On 05-02-2017 20:23:24 EDT by Low Cordova MD
[2017-05-03] MEDS: Ipratropium/Albuterol Neb 3 ML IH SCH ×6 (00:05→20:50)
[2017-05-03] MEDS: Ondansetron 4 MG/2 ML VIAL IVP PRN ×4 (02:33→22:32)
[2017-05-03] MEDS: Acetaminophen 325 MG TABLET PO PRN ×3 (02:33→22:32)
[2017-05-03] MEDS: *HR* Enoxaparin 40 MG/0.4 ML SYRINGE SQ SCH (05:44)
[2017-05-03 07:24] LABS: BUN/Creatinine Ratio 39 (6-26); Blood Urea Nitrogen 23 mg/dL (6-20); Calcium 8.5 mg/dL (8.6-10.3); Carbon Dioxide 22 mEq/L (23-29); Chloride 105 mEq/L (98-107); Glucose 324 mg/dL (70-105); Osmolality,Calculated 304 (280-300); Potassium 3.5 mEq/L (3.5-5.1); Sodium 139 mEq/L (136-145); eGFR For African Americans > 60 (> 60); eGFR For Non-African Americans > 60 (> 60)
[2017-05-03 07:50] LABS: Basophils % 0.2 %; Hematocrit 31.9 % (35.3-44.9); Hemoglobin 9.6 g/dL (11.5-15.4); Immature Granulocytes % 0.9 % (0-4); Lymphocytes # 0.6 K/mcL (0.6-4.6); Lymphocytes % 5.4 %; Mean Corpuscular HGB Conc 30.1 g/dL (31.6-35.5); Mean Corpuscular Hemoglobin 26.4 pg (28.0-33.3); Mean Corpuscular Volume 87.9 fL (83.0-100.0); Mean Platelet Volume 11.1 fL (9.4-12.4); Monocytes # 0.4 K/mcL (0.0-1.3); Monocytes % 3.1 %; Neutrophils # 10.6 K/mcL (1.6-8.9); Nucleated Red Blood Cells 0.3 /100 WBC (0); Platelet Count 372 K/mcL (140-400); Red Blood Count 3.63 M/mcL (3.82-4.97); Red Cell Distribution Width 18.4 % (11.5-14.5); Segmented Neutrophils % 90.4 %
[2017-05-03] MEDS: Azithromycin 250 MG TABLET PO SCH (08:39)
[2017-05-03] MEDS: predniSONE 20 MG TABLET PO SCH (08:39)
[2017-05-03] MEDS: Aspirin Enteric Coated 81 MG Tablet PO SCH (08:39)
[2017-05-03] MEDS: Loratadine 10 MG TABLET PO SCH (08:39)
[2017-05-03] MEDS: cloNIDine HCl 0.1 MG TABLET PO SCH ×4 (08:40→22:33)
[2017-05-03] MEDS: Famotidine 20 MG TABLET PO SCH (08:40)
[2017-05-03] MEDS: Losartan/HCTZ 50-12.5 TABLET PO SCH (08:40)
[2017-05-03] MEDS: Insulin LISPRO 300 UNITS/3 ML VIAL SQ SCH ×5 (08:56→17:20)
--- NOTE | 2017-05-03 09:31 | Internal Med Progress Note ---
<Jose RamonkamranMartinez zayas - Last Filed: 05/03/17 14:21> Date of Encounter: 05/03/17 Time of Encounter: 08:10 - Assessment and plan (1) Acute exacerbation of chronic obstructive airways disease Current Visit: Yes Status: Acute Assessment and plan: Continue prednisone by mouth 40 mg daily. On day #2 of azithromycin 250 mg today and continue for 4 more days. White blood cell count increased from 8.5- 11.7 today most likely secondary to use of prednisone. Patient afebrile. (2) Sinus tachycardia Current Visit: Yes Status: Resolved Assessment and plan: Patient's pulse rate today in 140s. This is baseline for her. Added 25 mg of Toprol-XL daily. Continue home medication of amlodipine. Echocardiogram shows patient's EF to be 65-70%, which is unchanged from her last echo on 11/07. Patient has upcoming appointment with cardiology with Dr. Peterson on 05/06/17. (3) Diabetes mellitus Current Visit: No Status: Chronic Assessment and plan: Patient's blood glucose level today at 324. Added mealtime insulin 10 units corrective dose. Continue sliding scale low-dose. Continue nighttime Levemir. Continue diabetic diet. Continue Levemir 40 units at night. Qualifiers: Diabetes mellitus type: type 2 Diabetes mellitus salvage determiner insulin use: with salvage determiner use Diabetes mellitus complication status: with hyperglycemia Qualified Code(s): E11.65 - Type 2 diabetes mellitus with hyperglycemia; Z79.4 - skilled nursing (current) 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; Z79.4 - terminal press operator (current) 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; Z79.4 - skilled nursing (current) 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; Z79.4 - terminal press operator (current ) 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 (4) Hypertension Current Visit: No Status: Chronic Assessment and plan: Blood pressure is normotensive at 115/76. Continue amlodipine, clonidine, and hydrochlorothiazide Qualifiers: Hypertension type: essential hypertension Qualified Code(s): I10 - Essential (primary) hypertension (5) GERD (gastroesophageal reflux disease) Current Visit: Yes Status: Chronic Assessment and plan: Continue omeprazole. Qualifiers: Esophagitis presence: without esophagitis Qualified Code(s): K21.9 - Gastro -esophageal reflux disease without esophagitis (6) DVT prophylaxis Current Visit: Yes Status: Acute Assessment and plan: Creatinine levels within normal limits. Continue Lovenox. - Subjective Interval history: Ms. Ren is a 57 year old female with a PMH of COPD, CHF, GERD, HLD and HTN that presents for shortness of breath. When seen today patient said that her wheezing has been the same. She says that her cough has improved since yesterday and it is dry. She denies any fever. She admits to some nausea but denies any vomiting. Denies chest pain. - Constitutional Vitals: Temp Pulse Resp BP Pulse Ox 98.3 F 140 23 115/76 93 05/03/17 08:32 05/03/17 08:32 05/03/17 08:32 05/03/17 08:32 05/03/17 08:32 General appearance: Present: A&O X 3, no acute distress, obese - ENT ENT exam: Present: mucous membranes dry - Respiratory Respiratory exam: Present: CTAB (Wheezing seems to be noted from throat. Patient seems to have some sort of vocal chord dysfunction.). Absent: rales, rhonchi, wheezes - Cardiovascular Cardiovascular exam: Present: +S1, +S2, tachycardia. Absent: diastolic murmur, systolic murmur - GI/Abdominal GI/Abdominal exam: Present: normal bowel sounds, soft, no peritoneal signs. Absent: distended, tenderness - Extremities Exam Extremities exam: Present: full ROM, normal capillary refill, pedal edema (+1 pitting edema and right foot.), tenderness (Generalized tenderness in the lower extremities bilaterally.), warm, radial pulses palpable and symmetrical. Absent : cyanotic Internal Medicine: Result - Labs CBC & Chem 7: 05/03/17 06:01 05/03/17 06:01 Labs: Short CBC 05/03/17 Range/Units 06:01 WBC 11.7 H (4.3-11.1) K/mcL Hgb 9.6 L (11.5-15.4) g/dL Hct 31.9 L (35.3-44.9) % Plt Count 372 (140-400) K/mcL Neutrophils # 10.6 H (1.6-8.9) K/mcL BMP 05/03/17 06:01 Sodium 139 Potassium 3.5 Chloride 105 Carbon Dioxide 22 L BUN 23 H Creatinine 0.59 L Glucose 324 H Calcium 8.5 L Consult Discharge Plan - Plan Referrals: Domitila Lau MD [Primary Care Provider] - <JimiObed - Last Filed: 05/03/17 14:43> Date of Encounter: 05/03/17 - Assessment and plan (1) Acute exacerbation of chronic obstructive airways disease Current Visit: Yes Status: Acute (2) Sinus tachycardia Current Visit: Yes Status: Resolved (3) Diabetes mellitus Current Visit: No Status: Chronic Qualifiers: Diabetes mellitus type: type 2 Diabetes mellitus nursing home insulin use: with nursing home use Diabetes mellitus complication status: with hyperglycemia Qualified Code(s): E11.65 - Type 2 diabetes mellitus with hyperglycemia; Z79.4 - skilled nursing (current) 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; Z79.4 - terminal press operator (current) 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; Z79.4 - skilled nursing (current) 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; Z79.4 - terminal press operator (current ) 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 (4) Hypertension Current Visit: No Status: Chronic Qualifiers: Hypertension type: essential hypertension Qualified Code(s): I10 - Essential (primary) hypertension (5) GERD (gastroesophageal reflux disease) Current Visit: Yes Status: Chronic Qualifiers: Esophagitis presence: without esophagitis Qualified Code(s): K21.9 - Gastro -esophageal reflux disease without esophagitis (6) DVT prophylaxis Current Visit: Yes Status: Acute - Constitutional Vitals: Temp Pulse Resp BP Pulse Ox 97.6 F 112 18 112/60 95 05/03/17 12:09 05/03/17 12:09 05/03/17 12:09 05/03/17 12:09 05/03/17 12:09 Internal Medicine: Result - Labs CBC & Chem 7: 05/03/17 06:01 05/03/17 06:01 Labs: Short CBC 05/03/17 Range/Units 06:01 WBC 11.7 H (4.3-11.1) K/mcL Hgb 9.6 L (11.5-15.4) g/dL Hct 31.9 L (35.3-44.9) % Plt Count 372 (140-400) K/mcL Neutrophils # 10.6 H (1.6-8.9) K/mcL BMP 05/03/17 06:01 Sodium 139 Potassium 3.5 Chloride 105 Carbon Dioxide 22 L BUN 23 H Creatinine 0.59 L Glucose 324 H Calcium 8.5 L - Impressions Impressions Echocardiogram 05/02/17 08:46 Impressions: LVEF 65-70%. Indeterminate diastolic function. Normal right ventricular structure and function. No significant valvular dysfunction. No pulmonary hypertension. Left Ventricular Wall Motion: Rest Echo Findings All wall segments showed normal motion. Findings: Study Quality * Technically adequate exam. ECG Findings * Sinus tachycardia. Left Ventricle * LVEF 65-70%. * Indeterminate diastolic function. * Normal LV size and wall thickness. Right Ventricle * Normal right ventricular structure and function. Left Atrium * Normal left atrial size. Right Atrium * Normal right atrial size. Aortic Valve * No aortic regurgitation. * No aortic stenosis. * Aortic valve not well visualized. Mitral Valve * No mitral regurgitation. * Normal mitral valve structure. * No mitral stenosis. Tricuspid Valve * Tricuspid valve not well visualized. * No tricuspid regurgitation. * Estimated RA pressure is 3 mmHg. Pulmonic Valve * Pulmonic valve is not well visualized. * No pulmonic stenosis. * No pulmonic regurgitation. Pulmonary Artery * Pulmonary artery not well visualized. Aorta * Suboptimally visualized. Pericardium * There is no pericardial effusion present. Interatrial Septum * No evidence of PFO by color Doppler. IVC * Normal IVC dimensions and inspiratory collapse. - Attending Attestation I have independently seen and examined this patient on 05/03 She is admitted and being managed for COPDE She has a medical history of diabetes mellitus, GERD, and hypertension. She also has chronic sinus tachycardia. For which she is scheduled to have a cardiology appointment on 05/06. She is seen and evaluated at the bedside she complains of frontal headaches. I requested Imitrex. She is otherwise asymptomatic and thinks her breathing has improved. She continues to have tachycardia with heart rate between 120-140. Physical examination is unremarkable. Labs and imaging reviewed and unremarkable. Treated headache with Imitrex when necessary, start low-dose beta blockers for sinus tachycardia to prevent tachycardia induced cardiomyopathy. Continue current management. Encouraged follow-up appointment with cardiology. Rest as in the resident physician's documentation
[2017-05-03] MEDS ORDERED: SUMAtriptan succinate 50 MG TABLET PO ONE ×2 (12:20→23:51)
[2017-05-03] MEDS: Metoprolol XL (24 HR) Succ 25 MG TAB.ER.24H PO SCH (15:23)
[2017-05-03] MEDS ORDERED: Insulin LISPRO 300 UNITS/3 ML VIAL SQ SCH (21:00)
[2017-05-03] MEDS: amLODIPine 5 MG TABLET PO SCH (22:32)
[2017-05-03] MEDS: Insulin DETEMIR 100 UNIT/ML X5UNITS SQ SCH (22:37)
[2017-05-04] MEDS: Ipratropium/Albuterol Neb 3 ML IH SCH ×4 (00:30→11:18)
[2017-05-04] MEDS: Acetaminophen 325 MG TABLET PO PRN (05:03)
[2017-05-04] MEDS: *HR* Enoxaparin 40 MG/0.4 ML SYRINGE SQ SCH (05:04)
[2017-05-04 05:56] LABS: Basophils % 0.2 %; Eosinophils % 0.1 %; Hemoglobin 9.9 g/dL (11.5-15.4); Immature Granulocytes % 1.2 % (0-4); Lymphocytes # 2.3 K/mcL (0.6-4.6); Lymphocytes % 18.9 %; Mean Corpuscular Hemoglobin 26.5 pg (28.0-33.3); Mean Corpuscular Volume 88.2 fL (83.0-100.0); Mean Platelet Volume 10.6 fL (9.4-12.4); Monocytes # 0.7 K/mcL (0.0-1.3); Monocytes % 6.1 %; Neutrophils # 8.9 K/mcL (1.6-8.9); Nucleated Red Blood Cells 0.3 /100 WBC (0); Platelet Count 425 K/mcL (140-400); Red Blood Count 3.74 M/mcL (3.82-4.97); Red Cell Distribution Width 18.3 % (11.5-14.5); Segmented Neutrophils % 73.5 %
[2017-05-04 06:12] LABS: BUN/Creatinine Ratio 38 (6-26); Blood Urea Nitrogen 30 mg/dL (6-20); Calcium 8.7 mg/dL (8.6-10.3); Carbon Dioxide 27 mEq/L (23-29); Chloride 105 mEq/L (98-107); Glucose 73 mg/dL (70-105); Osmolality,Calculated 297 (280-300); Potassium 3.7 mEq/L (3.5-5.1); Sodium 141 mEq/L (136-145); eGFR For African Americans > 60 (> 60); eGFR For Non-African Americans > 60 (> 60)
[2017-05-04] MEDS: Ondansetron 4 MG/2 ML VIAL IVP PRN (07:28)
[2017-05-04] MEDS: predniSONE 20 MG TABLET PO SCH (09:07)
[2017-05-04] MEDS: cloNIDine HCl 0.1 MG TABLET PO SCH (09:07)
[2017-05-04] MEDS: Losartan/HCTZ 50-12.5 TABLET PO SCH (09:07)
[2017-05-04] MEDS: Azithromycin 250 MG TABLET PO SCH (09:07)
[2017-05-04] MEDS: Metoprolol XL (24 HR) Succ 25 MG TAB.ER.24H PO SCH (09:07)
[2017-05-04] MEDS: Aspirin Enteric Coated 81 MG Tablet PO SCH (09:08)
[2017-05-04] MEDS: Loratadine 10 MG TABLET PO SCH (09:08)
[2017-05-04] MEDS: Insulin LISPRO 300 UNITS/3 ML VIAL SQ SCH ×2 (09:08→09:14)
[2017-05-04 11:40] VITALS: BP 101/56
--- NOTE | 2017-05-04 12:02 | Discharge Summary ---
- NOTES TO OUTPATIENT PROVIDER Notes to Outpatient Provider: Started on BB for sinus tach, HR 120-140, improved with toprol, has an appointment with cardiology 05/06, advised to keep. ECHO was normal. Date of Encounter: 05/04/17 Time of Encounter: 10:40 - Discharge Diagnosis (1) Acute exacerbation of chronic obstructive airways disease Priority: Primary Status: Acute Comments: Improved with treatment. Discharged today on 3 more days of Zithromax, as well as prednisone taper. Follow-up with her ROBOTIC WELD TECHNICIAN. (2) Sinus tachycardia Priority: Primary Status: Resolved Comments: Patient said heart rate baseline in the 120s. She was started on Toprol-XL 25 mg daily yesterday 05/10, and this has largely improved her heart rate. This is to prevent tachycardia-induced cardiomyopathy. Echocardiogram shows patient's EF to be 65-70%, which is unchanged from her last echo on 11/07. Patient has upcoming appointment with cardiology with Dr. Peterson on 05/06/17. Encouraged to keep appointment. (3) Diabetes mellitus Priority: Secondary Status: Chronic Comments: continue home meds, controlled on same, follow up with PCP Qualifiers: Diabetes mellitus type: type 2 Diabetes mellitus group home insulin use: with group home use Diabetes mellitus complication status: with hyperglycemia Qualified Code(s): E11.65 - Type 2 diabetes mellitus with hyperglycemia; Z79.4 - senior care (current) 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; Z79.4 - metal spinner (current) 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; Z79.4 - senior care (current) 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; Z79.4 - metal spinner (current ) 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 (4) Hypertension Priority: Secondary Status: Chronic Comments: continue home medications at discharge Qualifiers: Hypertension type: essential hypertension Qualified Code(s): I10 - Essential (primary) hypertension (5) GERD (gastroesophageal reflux disease) Priority: Secondary Status: Chronic Comments: continue home medications Qualifiers: Esophagitis presence: without esophagitis Qualified Code(s): K21.9 - Gastro -esophageal reflux disease without esophagitis (6) DVT prophylaxis Priority: Secondary Status: Resolved (7) Chronic respiratory failure Priority: Secondary Status: Chronic Qualifiers: Respiratory failure complication: hypoxia Qualified Code(s): J96.11 - Chronic respiratory failure with hypoxia Hospital course: Ms. Ren is a 57 year old female with a PMH of COPD, CHF, GERD, HLD , chronic resp failure on home O2, and HTN that presents for shortness of breath. She was placed on observation and managed for COPDE with antibiotics, steroids and duonebs She was also started on toprol for her chronic sinus tachycardia, ECHO was noral She is medically stable to be discharged home with appropriate follow up with cardiology, pulmonology and PCP Discharge discussed with: patient, nurse, social work, case management - Time Spent with Patient Total time spent providing and/or coordinating discharge services: - Discharge Medications Prescriptions: Azithromycin [Zithromax] 250 mg PO DAILY #3 tablet Metoprolol XL (24 HR) Succ [Toprol Xl] 25 mg PO DAILY #30 tab.er.24h predniSONE [PredniSONE] See Taper PO DAILY #20 tablet Home Medications: cloNIDine HCl [Clonidine HCl] 0.3 mg PO QID 05/16/16 [History] Oxygen 3 l IH AD 07/19/16 [History] Insulin Glargine [Lantus] 40 unit SQ HS 08/10/16 [History] Roflumilast [Daliresp] 500 mcg PO DAILY 08/10/16 [History] amLODIPine [Norvasc] 5 mg PO HS #30 tab 09/30/16 [Rx] Albuterol Sulfate [Ventolin Hfa] 2 puff IH Q4H PRN #1 inh 10/15/16 [Rx] Pantoprazole Sodium [Protonix] 40 mg PO BIDWM #60 tablet. 11/10/16 [Rx] Ipratropium/Albuterol Neb [Duoneb] 3 ml IH Q4HR 11/20/16 [History] Ranitidine HCl [Zantac] 150 mg PO DAILY 11/20/16 [History] Aspirin [Lo-Dose Aspirin EC] 81 mg PO DAILY 01/12/17 [History] Loratadine [Allergy Relief] 10 mg PO DAILY 01/16/17 [History] Losartan/Hydrochlorothiazide [Losartan-Hctz 100-25 mg Tab] 1 tab PO DAILY [History] Meclizine [Antivert] 25 mg PO TID PRN 01/16/17 [History] Furosemide [Lasix] 40 mg PO DAILY PRN 01/31/17 [History] Insulin LISPRO [HumaLOG] 0 units SQ TID 05/02/17 [History] Azithromycin [Zithromax] 250 mg PO DAILY #3 tablet 05/04/17 [Rx] Loratadine [Claritin] 10 mg PO DAILY tablet 05/04/17 [Rx] Metoprolol XL (24 HR) Succ [Toprol Xl] 25 mg PO DAILY #30 tab.er.24h 05/04/17 [ Rx] predniSONE [PredniSONE] See Taper PO DAILY #20 tablet 05/04/17 [Rx] Allergies/Adverse Reactions: 3 Allergy/AdvReac Type Severity Reaction Status Date / Time NSAIDS (Non-Steroidal Allergy Unknown See Verified 03/23/17 09:30 Anti-Inflamma Comments Penicillins Allergy Unknown Hives Verified 03/23/17 09:30 lisinopril AdvReac Cough Verified 03/23/17 09:30 lorazepam [From Ativan] AdvReac Confusion Verified 03/23/17 09:30 tramadol AdvReac Nausea Verified 03/23/17 09:30 Date of admission: 05/02/17 06:27 Primary care physician: Domitila Lau MD Discharging clinician: Obed Krause Anticipated date of discharge: 05/04/17 - Constitutional Vitals: Temp Pulse Resp BP Pulse Ox 97.5 F L 108 16 101/56 95 05/04/17 11:39 05/04/17 11:39 05/04/17 11:39 05/04/17 11:39 05/04/17 11:39 General appearance: Present: A&O X 3, no acute distress, obese - Head Head exam: Present: atraumatic, normocephalic - Eye Eye exam: Present: PERRL, conjuntiva pink, sclera anicteric Pupils: Present: PERRL - Neck Neck exam general surgery: Present: supple, trachea midline. Absent: lymphadenopathy - Respiratory Respiratory exam: Present: CTAB. Absent: accessory muscle use, rales, rhonchi, wheezes - Cardiovascular Cardiovascular exam: Present: RRR, +S1, +S2. Absent: diastolic murmur, gallop, rubs, systolic murmur - GI/Abdominal GI/Abdominal exam: Present: normal bowel sounds, soft, no peritoneal signs. Absent: distended, tenderness - Extremities Exam Extremities exam: Present: warm, radial pulses palpable and symmetrical. Absent : calf tenderness, cyanotic, pedal edema - Neurological Exam Neurological exam: Present: alert, CN II-XII intact, oriented X3, no focal deficits. Absent: pronater drift, facial droop, speech deficit - Skin Skin exam: Present: dry, intact - Patient Status Disposition: Home, Self-Care Condition: Good - Discharge Instructions Instructions: Azithromycin (By mouth), Chronic Obstructive Pulmonary Disease ( [place]) Follow Up With: Domitila Lau MD [Primary Care Provider] - 05/09/17 2:30 pm (please follow up as schedule...) - Diet and Activity Activity: resume usual activities as tolerated Diet: diabetic diet
== END 2017-05-04 11:57 | disposition home or self-care (01) ==
LOC: EMEROO 04:53 → 2ANU 04:53 → SUATTDRO 06:27 → 2ANU 06:30
PROVIDERS: ADMIT Internal Medicine; ATTEND Internal Medicine

== ENCOUNTER 2017-06-02 22:29 | Inpatient (IN) ==
[2017-06-02] MEDS ORDERED: Ipratropium/Albuterol Neb 3 ML ONE (22:41)
[2017-06-02] MEDS: Ipratropium/Albuterol Neb 3 ML IH ONE ×2 (22:45→23:53)
[2017-06-02] MEDS ORDERED: methylPREDNISolone 125 MG/2 ML VIAL IVP ONE (23:32)
[2017-06-02] MEDS ORDERED: Ipratropium/Albuterol Neb 3 ML IH ONE (23:32)
--- NOTE | 2017-06-02 23:35 | Emergency Department Note ---
Disposition Clinical Impression: COPD exacerbation, Accelerated hypertension Acute on chronic respiratory failure Qualifiers: Respiratory failure complication: unspecified whether with hypoxia or hypercapnia Qualified Code(s): J96.20 - Acute and chronic respiratory failure, unspecified whether with hypoxia or hypercapnia Disposition: Admitted As Inpatient Condition: Good Referrals: Domitila Lau MD [Primary Care Provider] - Forms: ED Satisfaction Letter Time of Disposition: 00:53 SOB HPI - General Chief Complaint: ED Shortness of Breath/Dyspnea Stated Complaint: Shortness of Breath Time Seen by Provider: 06/02/17 23:14 Source: patient Limitations: no limitations Nursing Notes Reviewed: Yes Vital Signs Reviewed: Yes - History of Present Illness 57-year-old female history of COPD on 3 L home oxygen supplementation presents to the emergency department for increase worker breathing. For the past month she has had intermittent shortness of breath gradually worsened today. She reports a productive cough that has now green the past 3 days. She reports some chest pain that is typical when she has a flareup. She has been using her emulators more frequently with some improvement. She follows with pulmonology here at [place] and was recently on Azithromycin. Recent admission 2 months ago. She does not smoke anymore. Denies any other symptoms such as fever, congestion, abdominal pain. No leg swelling. No history of cardiac ischemic disease. Denies history of blood clots. At this time will treat her for COPD exacerbation and give her steroids. Patients in agreement with this plan. Pt Subjective Complaint: shortness of breath, cough - Related Data Home Medications Medication Instructions Recorded Confirmed cloNIDine HCl [Clonidine HCl] 0.3 mg PO QID 05/16/16 05/02/17 Oxygen 3 l IH AD 07/19/16 05/02/17 Insulin Glargine [Lantus] 40 unit SQ HS 08/10/16 05/02/17 Roflumilast [Daliresp] 500 mcg PO DAILY 08/10/16 05/02/17 Ipratropium/Albuterol Neb [Duoneb] 3 ml IH Q4HR 11/20/16 05/02/17 Ranitidine HCl [Zantac] 150 mg PO DAILY 11/20/16 05/02/17 Aspirin [Lo-Dose Aspirin EC] 81 mg PO DAILY 01/12/17 05/02/17 Loratadine [Allergy Relief] 10 mg PO DAILY 01/16/17 05/02/17 Losartan/Hydrochlorothiazide 1 tab PO DAILY 01/16/17 05/02/17 [Losartan-Hctz 100-25 mg Tab] Meclizine [Antivert] 25 mg PO TID PRN 01/16/17 05/02/17 Furosemide [Lasix] 40 mg PO DAILY PRN 01/31/17 05/02/17 Insulin LISPRO [HumaLOG] 0 units SQ TID 05/02/17 05/02/17 Previous Rx's Medication Instructions Recorded amLODIPine [Norvasc] 5 mg PO HS #30 tab 09/30/16 Albuterol Sulfate [Ventolin Hfa] 2 puff IH Q4H PRN #1 inh 10/15/16 Pantoprazole Sodium [Protonix] 40 mg PO BIDWM #60 tablet. 11/10/16 Azithromycin [Zithromax] 250 mg PO DAILY #3 tablet 05/04/17 Loratadine [Claritin] 10 mg PO DAILY tablet 05/04/17 Metoprolol XL (24 HR) Succ [Toprol 25 mg PO DAILY #30 tab.er.24h 05/04/17 Xl] predniSONE [PredniSONE] See Taper PO DAILY #20 tablet 05/04/17 Allergies Allergy/AdvReac Type Severity Reaction Status Date / Time NSAIDS (Non-Steroidal Allergy Unknown See Verified 03/23/17 09:30 Anti-Inflamma Comments Penicillins Allergy Unknown Hives Verified 03/23/17 09:30 lisinopril AdvReac Cough Verified 03/23/17 09:30 lorazepam [From Ativan] AdvReac Confusion Verified 03/23/17 09:30 tramadol AdvReac Nausea Verified 03/23/17 09:30 All systems ED: reviewed and negative except as stated. Review of Systems: As Per HPI Constitutional: Denies: fever, chills ENT ED: Denies: congestion Cardiovascular: Reports: chest pain Respiratory: Reports: cough, dyspnea, wheezes Gastrointestinal: Denies: abdominal pain, nausea, vomiting Genitourinary: Denies: urgency, dysuria Musculoskeletal: Denies: back pain, neck pain Integumentary: Denies: rash, abrasion Neurological: Denies: headache, weakness Past Medical History - Past Medical History Attestation: Yes The following information was validated with the patient. 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 - Social History Smoking Status: Former smoker Smokeless Tobacco Status: No Alcohol use: Reports: none Drug use: Reports: none Physical Exam - General Limitations: no limitations General appearance: alert, in distress (Mild respiratory, conversational dyspnea ) - Head Head exam: atraumatic, normocephalic, normal inspection - Eye Eye exam: Present: normal appearance, PERRL, EOMI - ENT ENT exam: normal exam, normal oropharynx, mucous membranes moist - Neck Neck exam: Present: normal inspection, full ROM, trachea midline - Chest Chest inspection: Present: normal inspection, symmetric chest wall rise - Respiratory Respiratory exam: Present: respiratory distress (Mild), wheezes, accessory muscle use, prolonged expiratory phase, other (tight with minimal aeration) - Cardiovascular Cardiovascular exam: Present: regular rate, normal rhythm, normal heart sounds - Abdominal Exam Abdominal exam: Present: soft, Non-Tender, normal bowel sounds. Absent: tenderness, distention, guarding, rebound, rigidity - Extremities Exam Extremities exam: Present: normal inspection, full ROM, normal capillary refill. Absent: tenderness, pedal edema, calf tenderness - Back Exam Back exam: Present: normal inspection, full ROM. Absent: tenderness - Neurological Exam Neurological exam: Present: alert, oriented X3 - Psychiatric Psychiatric exam: Present: normal affect, normal mood - Skin Skin exam: Present: warm, dry, intact, normal color. Absent: rash, cyanosis, diaphoresis Course - Reevaluation(s) Reevaluation #1: Patient was given a breathing treatment out and triage. On my initial exam after the breathing treatment she remained tight and was still wheezing. She has a history of the COPD exacerbation and most of the time required BiPAP. At this time will attempt BiPAP. Labs in images pending at this time. Patient may require transfer for further management as the hospital is full without telemetry beds Time: 00:53 Reevaluation #2: Patient is tolerating the BiPAP with increase aeration. Patient admits she is not feeling well but has symptoms improvement. ABG performed with pH 7.4 and normal CO2. Attempted to remove BiPAP but patient refuses. Contacted with bed coordinator on availability of telemetry bed. Time: 03:00 Reevaluation #3: Patient complaining of headache. Her past few BP readings are elevated 190 systolic. Due for antihypertensive medications at 5A. Will give dose of home Losartan/HCTZ here. Awaiting bed availability Additional Reevaluation(s): Continues to have elevated blood pressure. Will give the rest of her home antihypertensive medications at this time. She is denying any chest pain. She does admit to a slight headache. - Consultations Consultation #1: Spoke with on-call hospitalist bertha Coreas to admit for COPD exacerbation. No further orders at this time Agrees that without leukocytosis or fever would hold off on antibiotics at this time. Aware that patient was recently admitted for same presentation last month and has had multiple visits 6 + this year for same complaint. Time: 03:33 Vital Signs Temperature 97.9 F 06/02/17 22:36 Pulse Rate 128 06/02/17 22:36 Respiratory Rate 24 06/02/17 22:36 Blood Pressure 156/94 06/02/17 22:36 O2 Sat by Pulse Oximetry 97 06/02/17 22:36 Temperature 97.9 F 06/02/17 22:36 Pulse Rate 121 06/03/17 06:10 Respiratory Rate 20 06/03/17 06:10 Blood Pressure 196/123 06/03/17 06:10 O2 Sat by Pulse Oximetry 95 06/03/17 06:10 Oxygen Delivery Oxygen Delivery CPAP Mask O2 Shortness of Breath/Dyspnea - MDM Narrative Medical decision making narrative: Patient was discussed with my attending physician who agrees with ED management and final disposition. They independently evaluated the patient. Please refer to their attestation to this encounter for additional information. This note was generated by [employer] voice recognition software and as a result grammatical or spelling errors may occur using this program. - Medical Records Medical records reviewed: Yes I reviewed the patient's medical records. - Lab Data Lab results reviewed: Yes I reviewed the patient's lab results. Result diagrams: 06/03/17 00:04 06/03/17 00:04 Lab Results 06/03/17 06/03/17 06/03/17 Range/Units 00:04 00:04 00:53 WBC 7.7 (4.3-11.1) K/mcL RBC 4.33 (3.82-4.97) M/mcL Hgb 11.3 L (11.5-15.4) g/dL Hct 37.8 (35.3-44.9) % MCV 87.3 (83.0-100.0) fL MCH 26.1 L (28.0-33.3) pg MCHC 29.9 L (31.6-35.5) g/dL RDW 17.1 H (11.5-14.5) % Plt Count 388 (140-400) K/mcL MPV 10.6 (9.4-12.4) fL Immature Gran % 2.2 (0-4) % Seg Neutrophils % 55.1 % Lymphocytes % 27.2 % Monocytes % 11.4 % Eosinophils % 3.3 % Basophils % 0.8 % Neutrophils # 4.2 (1.6-8.9) K/mcL Lymphocytes # 2.1 (0.6-4.6) K/mcL Monocytes # 0.9 (0.0-1.3) K/mcL Eosinophils # 0.3 (0.0-0.6) K/mcL Basophils # 0.1 (0.0-0.2) K/mcL Nucleated RBCs/100 WBC 0.3 H (0) /100 WBC Sample Site R Radial ABG pH 7.40 (7.32-7.45) pH Units ABG pCO2 35 (35-45) mmHg ABG pO2 162 H (85-104) mmHg ABG HCO3 22 (21-27) mEq/L ABG Total CO2 23 (20-26) mEq/L ABG O2 Saturation 100 H (95-98) % ABG Base Excess -3 L (-2 to 3) mEq/L Mark Test Positive O2 Delivery Device BiPAP Blood Gas Modality BiLevel Inspired O2 40.0 (1-15=lpm [id number]=%) PEEP 6 cm H2O Sodium 142 (136-145) mEq/L Potassium 4.0 (3.5-5.1) mEq/L Chloride 112 H (98-107) mEq/L Carbon Dioxide 18 L (23-29) mEq/L BUN 15 (6-20) mg/dL Creatinine 0.74 (0.60-1.20) mg/dL Est GFR ( Amer) > 60 (> 60) Est GFR (Non-Af Amer) > 60 (> 60) BUN/Creatinine Ratio 20 (6-26) Glucose 174 H (70-105) mg/dL Calculated Osmolality 299 (280-300) Calcium 9.3 (8.6-10.3) mg/dL Troponin I < 0.03 (< 0.04) ng/mL - Radiology Data Radiology results reviewed: Yes I reviewed the patient's radiology results. Chest X-Ray 06/03/17 00:01 IMPRESSION: No acute abnormality detected. D/ / Sudhir Carmona MD / Sudhir Carmona MD Interpreting Provider: Sudhir Carmona MD - EKG Data EKG attestation: Yes I reviewed and interpreted this EKG. EKG results narrative: EKG performed 2342 sinus tachycardia 143 beats per minute, no no ST elevation or depression, normal axis, intervals within normal limits. Compared to old EKG performed 05/02/2017 shows similar consistent findings of sinus tachycardia 151 beats per minute. No acute ischemic changes.
--- NOTE | 2017-06-03 00:10 | Emergency Department Note ---
Disposition Clinical Impression: COPD exacerbation Acute on chronic respiratory failure Qualifiers: Respiratory failure complication: unspecified whether with hypoxia or hypercapnia Qualified Code(s): J96.20 - Acute and chronic respiratory failure, unspecified whether with hypoxia or hypercapnia Disposition: Admitted As Inpatient Condition: Good Referrals: Domitila Lau MD [Primary Care Provider] - Forms: ED Satisfaction Letter General Adult HPI - General Chief complaint: ED Shortness of Breath/Dyspnea Stated complaint: Shortness of Breath Time Seen by Provider: 06/02/17 23:14 Source: patient Limitations: no limitations Nursing Notes Reviewed: Yes Vital Signs Reviewed: Yes - History of Present Illness Pain Scale: 8 - Related Data Home Medications Medication Instructions Recorded Confirmed cloNIDine HCl [Clonidine HCl] 0.3 mg PO QID 05/16/16 05/02/17 Oxygen 3 l IH AD 07/19/16 05/02/17 Insulin Glargine [Lantus] 40 unit SQ HS 08/10/16 05/02/17 Roflumilast [Daliresp] 500 mcg PO DAILY 08/10/16 05/02/17 Ipratropium/Albuterol Neb [Duoneb] 3 ml IH Q4HR 11/20/16 05/02/17 Ranitidine HCl [Zantac] 150 mg PO DAILY 11/20/16 05/02/17 Aspirin [Lo-Dose Aspirin EC] 81 mg PO DAILY 01/12/17 05/02/17 Loratadine [Allergy Relief] 10 mg PO DAILY 01/16/17 05/02/17 Losartan/Hydrochlorothiazide 1 tab PO DAILY 01/16/17 05/02/17 [Losartan-Hctz 100-25 mg Tab] Meclizine [Antivert] 25 mg PO TID PRN 01/16/17 05/02/17 Furosemide [Lasix] 40 mg PO DAILY PRN 01/31/17 05/02/17 Insulin LISPRO [HumaLOG] 0 units SQ TID 05/02/17 05/02/17 Previous Rx's Medication Instructions Recorded amLODIPine [Norvasc] 5 mg PO HS #30 tab 09/30/16 Albuterol Sulfate [Ventolin Hfa] 2 puff IH Q4H PRN #1 inh 10/15/16 Pantoprazole Sodium [Protonix] 40 mg PO BIDWM #60 tablet. 11/10/16 Azithromycin [Zithromax] 250 mg PO DAILY #3 tablet 05/04/17 Loratadine [Claritin] 10 mg PO DAILY tablet 05/04/17 Metoprolol XL (24 HR) Succ [Toprol 25 mg PO DAILY #30 tab.er.24h 05/04/17 Xl] predniSONE [PredniSONE] See Taper PO DAILY #20 tablet 05/04/17 Allergies Allergy/AdvReac Type Severity Reaction Status Date / Time NSAIDS (Non-Steroidal Allergy Unknown See Verified 03/23/17 09:30 Anti-Inflamma Comments Penicillins Allergy Unknown Hives Verified 03/23/17 09:30 lisinopril AdvReac Cough Verified 03/23/17 09:30 lorazepam [From Ativan] AdvReac Confusion Verified 03/23/17 09:30 tramadol AdvReac Nausea Verified 03/23/17 09:30 Constitutional: Denies: fever, chills ENT ED: Denies: congestion Cardiovascular: Reports: chest pain Respiratory: Reports: cough, dyspnea, wheezes Gastrointestinal: Denies: abdominal pain, nausea, vomiting Genitourinary: Denies: urgency, dysuria Musculoskeletal: Denies: back pain, neck pain Integumentary: Denies: rash, abrasion Neurological: Denies: headache, weakness Past Medical History - Past Medical History Medical history: Reports: asthma, COPD, diabetes, GERD, hyperlipidemia, hypertension, renal disease Surgical history: Reports: appendectomy, cholecystectomy, knee replacement, other Psychiatric history: Reports: anxiety [employer]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 , 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 - Social History Smoking Status: Former smoker Smokeless Tobacco Status: No Alcohol use: Reports: none Drug use: Reports: none Physical Exam - General Limitations: no limitations General appearance: alert, in distress (Mild respiratory, conversational dyspnea ) Course Vital Signs Temperature 97.9 F 06/02/17 22:36 Pulse Rate 128 06/02/17 22:36 Respiratory Rate 24 06/02/17 22:36 Blood Pressure 156/94 06/02/17 22:36 O2 Sat by Pulse Oximetry 97 06/02/17 22:36 Temperature 97.9 F 06/02/17 22:36 Pulse Rate 126 06/03/17 01:38 Respiratory Rate 20 06/03/17 01:38 Blood Pressure 148/88 06/03/17 01:38 O2 Sat by Pulse Oximetry 97 06/03/17 01:38 Oxygen Delivery Oxygen Delivery CPAP Mask O2 Medical Decision Making - Lab Data Result diagrams: 06/03/17 00:04 06/03/17 00:04 Lab Results 06/03/17 06/03/17 06/03/17 Range/Units 00:04 00:04 00:53 WBC 7.7 (4.3-11.1) K/mcL RBC 4.33 (3.82-4.97) M/mcL Hgb 11.3 L (11.5-15.4) g/dL Hct 37.8 (35.3-44.9) % MCV 87.3 (83.0-100.0) fL MCH 26.1 L (28.0-33.3) pg MCHC 29.9 L (31.6-35.5) g/dL RDW 17.1 H (11.5-14.5) % Plt Count 388 (140-400) K/mcL MPV 10.6 (9.4-12.4) fL Immature Gran % 2.2 (0-4) % Seg Neutrophils % 55.1 % Lymphocytes % 27.2 % Monocytes % 11.4 % Eosinophils % 3.3 % Basophils % 0.8 % Neutrophils # 4.2 (1.6-8.9) K/mcL Lymphocytes # 2.1 (0.6-4.6) K/mcL Monocytes # 0.9 (0.0-1.3) K/mcL Eosinophils # 0.3 (0.0-0.6) K/mcL Basophils # 0.1 (0.0-0.2) K/mcL Nucleated RBCs/100 WBC 0.3 H (0) /100 WBC Sample Site R Radial ABG pH 7.40 (7.32-7.45) pH Units ABG pCO2 35 (35-45) mmHg ABG pO2 162 H (85-104) mmHg ABG HCO3 22 (21-27) mEq/L ABG Total CO2 23 (20-26) mEq/L ABG O2 Saturation 100 H (95-98) % ABG Base Excess -3 L (-2 to 3) mEq/L Mark Test Positive O2 Delivery Device BiPAP Blood Gas Modality BiLevel Inspired O2 40.0 (1-15=lpm [id number]=%) PEEP 6 cm H2O Sodium 142 (136-145) mEq/L Potassium 4.0 (3.5-5.1) mEq/L Chloride 112 H (98-107) mEq/L Carbon Dioxide 18 L (23-29) mEq/L BUN 15 (6-20) mg/dL Creatinine 0.74 (0.60-1.20) mg/dL Est GFR ( Amer) > 60 (> 60) Est GFR (Non-Af Amer) > 60 (> 60) BUN/Creatinine Ratio 20 (6-26) Glucose 174 H (70-105) mg/dL Calculated Osmolality 299 (280-300) Calcium 9.3 (8.6-10.3) mg/dL Troponin I < 0.03 (< 0.04) ng/mL Critical Care Time Critical Care Time: Yes Total Critical Care Time: 45 Attestation: Critical care performed: Time is exclusive of separately billable procedures. Time includes: direct patient care, patient reassessment, coordination of patient care, interpretation of data (laboratory data, radiology data, and respiratory data), review of patient's medical records, medical consultation and documentation of patient care. Procedures included in critical care time: Procedures excluded from critical care time: Attestation Statement - Attestation Attestation: I, Robert Hyde MD, personally evaluated this patient and discussed their management with the resident physician. I reviewed the resident's note and agree with the documented findings, medical decision making, and plan of care. 57-year-old female with history of severe COPD on home oxygen seen here frequently requiring BiPAP. She presents tonight complaining of her up of her COPD for the past week but acutely worse today and this evening. No relief with her oxygen and nebulizers at home. Some pleuritic chest pain with coughing or deep breathing. Some dark green sputum production. No definite fever. On examination patient is a well-developed well-nourished female in moderate respiratory distress. She is alert and oriented 3. There is no cyanosis or diaphoresis. Oxygen saturation 94% at time of my examination on oxygen by nasal cannula at 3 L/m which is her baseline. Chest is nontender to palpation. Breath sounds are decreased bilaterally with diffuse tight bilateral expiratory wheezes. No rales noted. Heart tachycardic and regular. Abdomen soft and nontender with normal bowel sounds. Pedal edema noted. No gross focal neurological deficits. EKG shows a sinus tachycardia with ventricular rate of 143. No acute ST segment elevation or depressions noted. Chest x-ray negative. Labs reviewed. Patient received triple DuoNeb treatment and IV Solu-Medrol and was placed on BiPAP with significant improvement in her symptoms. On reexamination wheezing has improved significantly but still has some scattered expiratory wheezes. The hospitalist, Dr. Reynolds, was consulted and accepted admission of the patient.
[2017-06-03 00:15] LABS: Basophils # 0.1 K/mcL (0.0-0.2); Basophils % 0.8 %; Eosinophils # 0.3 K/mcL (0.0-0.6); Eosinophils % 3.3 %; Hematocrit 37.8 % (35.3-44.9); Hemoglobin 11.3 g/dL (11.5-15.4); Immature Granulocytes % 2.2 % (0-4); Lymphocytes # 2.1 K/mcL (0.6-4.6); Lymphocytes % 27.2 %; Mean Corpuscular HGB Conc 29.9 g/dL (31.6-35.5); Mean Corpuscular Hemoglobin 26.1 pg (28.0-33.3); Mean Corpuscular Volume 87.3 fL (83.0-100.0); Mean Platelet Volume 10.6 fL (9.4-12.4); Monocytes # 0.9 K/mcL (0.0-1.3); Monocytes % 11.4 %; Neutrophils # 4.2 K/mcL (1.6-8.9); Nucleated Red Blood Cells 0.3 /100 WBC (0); Platelet Count 388 K/mcL (140-400); Red Blood Count 4.33 M/mcL (3.82-4.97); Red Cell Distribution Width 17.1 % (11.5-14.5); Segmented Neutrophils % 55.1 %
[2017-06-03 00:37] LABS: BUN/Creatinine Ratio 20 (6-26); Blood Urea Nitrogen 15 mg/dL (6-20); Calcium 9.3 mg/dL (8.6-10.3); Carbon Dioxide 18 mEq/L (23-29); Chloride 112 mEq/L (98-107); Glucose 174 mg/dL (70-105); Osmolality,Calculated 299 (280-300); Sodium 142 mEq/L (136-145); Troponin I < 0.03 ng/mL (< 0.04); eGFR For African Americans > 60 (> 60); eGFR For Non-African Americans > 60 (> 60)
[2017-06-03 00:56] LABS: ABG Base Excess -3 mEq/L (-2 to 3); ABG HCO3 22 mEq/L (21-27); ABG Oxygen Saturation 100 % (95-98); ABG PCO2 35 mmHg (35-45); ABG PO2 162 mmHg (85-104); ABG TCO2 23 mEq/L (20-26); Blood Gas Modality BiLevel; Blood Gas PEEP 6 cm H2O
[2017-06-03] MEDS ORDERED: *HR* OxyCODONE Immed Rel 5 MG TABLET PO ONE (02:59)
[2017-06-03] MEDS ORDERED: Losartan/HCTZ 50-12.5 TABLET PO ONE (03:46)
[2017-06-03] MEDS ORDERED: Ondansetron 4 MG/2 ML VIAL IVP ONE (04:16)
[2017-06-03] MEDS ORDERED: cloNIDine HCl 0.1 MG TABLET PO ONE ×2 (05:09→06:30)
[2017-06-03] MEDS: Metoprolol XL (24 HR) Succ 25 MG TAB.ER.24H PO SCH (08:00)
--- NOTE | 2017-06-03 10:11 | Emergency Department Note ---
START Narrative - START START: I did just update the hospitalist that I was able to remove the BiPAP and the patient is on 2 L nasal cannula with an oxygen saturation of 96%. She is breathing and speaking normally. Does complain of a headache which started after the BiPAP mask was placed because she said it was placed very tight and I did confirm that she does not have any numbness or weakness of the extremities, slurred speech, facial droop or confusion. Patient is given acetaminophen 1 g by mouth 1010
[2017-06-03] MEDS ORDERED: Naloxone 0.4 MG/ML INJ IVP PRN (11:01)
[2017-06-03] MEDS ORDERED: *HR* OxyCODONE Immed Rel 5 MG TABLET PO PRN (11:18)
[2017-06-03] MEDS ORDERED: Albuterol 2.5 MG/3 ML NEBULIZER IH PRN (11:21)
--- NOTE | 2017-06-03 11:45 | Internal Med History&Physical ---
Date of Encounter: 06/03/17 Time of Encounter: 11:00 Internal Medicine - H&P: HPI Chief complaint: SOB , cough History of present illness: Ms. Ren is a 57 year old female history of COPD chronic respiratory failure on home oxygen was complaining of shortness of breath. Patient presented with shortness of breath, cough, green sputum production. Patient denies hemoptysis. Patient notes she has similar exacerbations in the past. In emergency department patient placed on BiPAP has currently been weaned off. This time patient also feels some improvement. Patient denies chest pain or palpitations. Patient denies sick contacts. Patient denies abdominal pain, nausea and vomiting. She denies fever, chills or rigors. She denies headache, visual disturbance, neck pain or focal weakness. At this time patient voices no other complaints. Patient to be admitted for further evaluation. Past Med Surg Social Fam HX - Past Medical History Medical history: asthma, COPD, diabetes, GERD, hyperlipidemia, hypertension, renal disease Psychiatric history: anxiety - Past Surgical History Surgical History: appendectomy, cholecystectomy, knee replacement, other - Social History Smoking Status: Former smoker Smokeless Tobacco Status: No Alcohol use: none Drug use: none - Family History Father Family Member Ethnicity: Non- Living Status: Hx Family Cardiac Disorders: Yes Hx Family Respiratory Disorders: No Hx Family Cancer: No Hx Family GI Disorders: No Hx Family Endocrine Disorder: No Hx Family Neuromuscular Disorders: No Hx Family Neurologic Disorders: No Hx Family HEENT Disorders: No Hx Family Autoimmune Disorders: No Mother Adopted: No Family Member Ethnicity: Non- Living Status: Still Living Hx Family Cardiac Disorders: No Hx Family Respiratory Disorders: No Hx Family Cancer: No Hx Family GI Disorders: No Hx Family Endocrine Disorder: Yes (Diabetes) Hx Family Neuromuscular Disorders: No Hx Family Neurologic Disorders: No Hx Family HEENT Disorders: No Hx Family Autoimmune Disorders: Yes (Arthritis) Internal Medicine - H&P: Meds cloNIDine HCl [Clonidine HCl] 0.3 mg PO QID 05/16/16 [History] Oxygen 3 l IH AD 07/19/16 [History] Insulin Glargine [Lantus] 38 unit SQ HS 08/10/16 [History] amLODIPine [Norvasc] 5 mg PO HS #30 tab 09/30/16 [Rx] Albuterol Sulfate [Ventolin Hfa] 2 puff IH Q4H PRN #1 inh 10/15/16 [Rx] Pantoprazole Sodium [Protonix] 40 mg PO BIDWM #60 tablet. 11/10/16 [Rx] Ipratropium/Albuterol Neb [Duoneb] 3 ml IH Q4HR 11/20/16 [History] Ranitidine HCl [Zantac] 150 mg PO DAILY 11/20/16 [History] Aspirin [Lo-Dose Aspirin EC] 81 mg PO DAILY 01/12/17 [History] Losartan/Hydrochlorothiazide [Losartan-Hctz 100-25 mg Tab] 1 tab PO DAILY [History] Furosemide [Lasix] 40 mg PO DAILY PRN 01/31/17 [History] Insulin LISPRO [HumaLOG] 0 units SQ TID 05/02/17 [History] Nitroglycerin [Nitrostat] 0.4 mg PO Q5M 06/03/17 [History] Ondansetron ODT [Zofran ODT] 1 tab PO Q6HR PRN 06/03/17 [History] Potassium Chloride [Klor-Con 10] 10 meq PO DAILY 06/03/17 [History] 3 Allergy/AdvReac Type Severity Reaction Status Date / Time NSAIDS (Non-Steroidal Allergy Unknown See Verified 06/03/17 07:04 Anti-Inflamma Comments Penicillins Allergy Unknown Hives Verified 06/03/17 07:04 lisinopril AdvReac Cough Verified 06/03/17 07:04 lorazepam [From Ativan] AdvReac Confusion Verified 06/03/17 07:04 tramadol AdvReac Nausea Verified 06/03/17 07:04 All Systems PM: A 10-system review of systems was performed and is negative for pertinent findings except as documented above in the HPI. Review of systems: All systems have been reviewed and negative except for as mentioned in history of present illness - Constitutional Vitals: Temp Pulse Resp BP Pulse Ox 97.9 F 103 27 165/95 96 06/02/17 22:36 06/03/17 09:47 06/03/17 11:31 06/03/17 11:31 06/03/17 09:47 Vital signs as above Gen.: No apparent distress, cooperative, able to speak in full sentences HEENT: Atraumatic, normocephalic, extra clothes are intact, PERRL, there is no scleral icterus Neck: No JVD no pain to palpation, full range of motion Abdomen: Soft, nontender, nondistended, positive bowel sounds, no guarding, no rigidity Musculoskeletal: Patient moves all 4 extremities freely, pinna palpation of large joints, no calf tenderness, no pedal edema Neuro: Nonfocal, CN are intact Skin: Intact no new rash Psychiatry: Normal affect Internal Med - H&P Results - Labs CBC & Chem 7: 06/03/17 00:04 06/03/17 00:04 - Assessment and plan (1) Accelerated hypertension Current Visit: Yes Status: Acute Assessment and plan: At this time patient's blood pressure has improved. Likely situational due to hypoxemia and COPD exacerbation At this time patient remains neurologically intact All medications have been restarted, will adjust as needed (2) Acute on chronic respiratory failure Current Visit: Yes Status: Acute Assessment and plan: Patient required BiPAP in the emergency department. At this time patient has been weaned off BiPAP therapy Patient remains on 3 L nasal cannula at her baseline settings Likely secondary to COPD exacerbation with cough and sputum production. Chest x -ray negative for pneumonia We will treated for acute bronchitis Empiric parenteral antibiotics, systemic steroids, sputum culture, check respiratory viral panel, strep antigen Pulmonary consultation. I discuss case with critical care resident who will inform attending above consult. Qualifiers: Respiratory failure complication: unspecified whether with hypoxia or hypercapnia Qualified Code(s): J96.20 - Acute and chronic respiratory failure , unspecified whether with hypoxia or hypercapnia (3) COPD exacerbation Current Visit: Yes Status: Acute Assessment and plan: See above Systemic steroids, empiric antibiotics, sputum culture, bronchodilators Pulmonary consultation (4) Chronic pain Current Visit: No Status: Chronic Assessment and plan: Continue home medications Per patient due to osteoarthritis Qualifiers: Chronic pain type: other chronic pain Qualified Code(s): G89.29 - Other chronic pain (5) DM (diabetes mellitus), type 2 Current Visit: No Status: Chronic Assessment and plan: Insulin, sliding scale, adjust as needed Qualifiers: Diabetes mellitus half-way insulin use: with half-way use Diabetes mellitus complication status: with ketoacidosis Diabetes mellitus complication detail: without coma Qualified Code(s): E11.10 - Type 2 diabetes mellitus with ketoacidosis without coma; Z79.4 - residential (current) 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; Z79.4 - intermodal truck driver (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
[2017-06-03] MEDS: cloNIDine HCl 0.1 MG TABLET PO SCH ×3 (12:00→20:21)
[2017-06-03] MEDS: Ipratropium/Albuterol Neb 3 ML IH SCH ×4 (15:07→23:24)
[2017-06-03 15:22] LABS: Adenovirus Not Detected (Not Detect); Bordetella Pertussis Not Detected (Not Detect); Chlamydophila pneumoniae Not Detected (Not Detect); Coronavirus 229E Not Detected (Not Detect); Coronavirus HKU1 Not Detected (Not Detect); Coronavirus NL63 Not Detected (Not Detect); Coronavirus OC43 Not Detected (Not Detect); Human Metapneumovirus Not Detected (Not Detect); Human Rhinovirus/Enterovirus Not Detected (Not Detect); Influenza A Subtype 2009 H1 Not Detected (Not Detect); Influenza A Untypeable Not Detected (Not Detect); Influenza B Not Detected (Not Detect); Mycoplasma pneumoniae Not Detected (Not Detect); Parainfluenza Virus 1 Not Detected (Not Detect); Parainfluenza Virus 2 Not Detected (Not Detect); Parainfluenza Virus 3 Not Detected (Not Detect); Parainfluenza Virus 4 Not Detected (Not Detect); Respiratory Syncytial Virus Not Detected (Not Detect)
[2017-06-03] MEDS: *HR* Morphine 2 MG/ML SYRINGE IVP PRN ×2 (16:13→20:33)
[2017-06-03] MEDS: Doxycycline 100 MG in 0.9 % Sodium Chloride Mini Bag 100 ML IVPB SCH (16:13)
[2017-06-03] MEDS: methylPREDNISolone 125 MG/2 ML VIAL IVP SCH (16:13)
[2017-06-03] MEDS: amLODIPine 5 MG TABLET PO SCH (20:21)
[2017-06-03] MEDS ORDERED: Insulin DETEMIR 100 UNIT/ML X5UNITS SQ SCH (21:00)
[2017-06-04] MEDS: methylPREDNISolone 125 MG/2 ML VIAL IVP SCH ×3 (00:43→16:41)
[2017-06-04] MEDS: *HR* Morphine 2 MG/ML SYRINGE IVP PRN ×3 (02:34→12:58)
[2017-06-04] MEDS: Ipratropium/Albuterol Neb 3 ML IH SCH ×6 (03:56→23:39)
[2017-06-04 04:18] LABS: Basophils % 0.3 %; Hematocrit 32.4 % (35.3-44.9); Hemoglobin 9.8 g/dL (11.5-15.4); Immature Granulocytes % 1.3 % (0-4); Lymphocytes # 0.6 K/mcL (0.6-4.6); Lymphocytes % 8.3 %; Mean Corpuscular HGB Conc 30.2 g/dL (31.6-35.5); Mean Corpuscular Hemoglobin 26.2 pg (28.0-33.3); Mean Corpuscular Volume 86.6 fL (83.0-100.0); Mean Platelet Volume 10.5 fL (9.4-12.4); Monocytes # 0.2 K/mcL (0.0-1.3); Monocytes % 2.7 %; Neutrophils # 5.9 K/mcL (1.6-8.9); Nucleated Red Blood Cells 0.3 /100 WBC (0); Platelet Count 371 K/mcL (140-400); Red Blood Count 3.74 M/mcL (3.82-4.97); Red Cell Distribution Width 16.9 % (11.5-14.5); Segmented Neutrophils % 87.4 %
[2017-06-04 04:21] LABS: INR 1.2; Prothrombin Time 12.7 Seconds (9.4-12.1)
[2017-06-04 04:35] LABS: Alanine Aminotransferase 9 Units/L (7-52); Albumin 3.7 g/dL (3.5-5.7); Albumin/Globulin Ratio 1.5 (1.1-2.2); Alkaline Phosphatase 88 Units/L (34-104); Aspartate Amino Transferase 8 Units/L (13-39); BUN/Creatinine Ratio 38 (6-26); Bilirubin,Total 0.2 mg/dL (0.3-1.0); Blood Urea Nitrogen 28 mg/dL (6-20); Calcium 8.6 mg/dL (8.6-10.3); Carbon Dioxide 23 mEq/L (23-29); Chloride 104 mEq/L (98-107); Chol/HDL Ratio 3.8 (0-4.9); Cholesterol 155 mg/dL (< 200); Globulin 2.5 g/dL (2.4-3.5); Glucose 442 mg/dL (70-105); HDL Cholesterol 41 mg/dL (40-59); LDL Cholesterol,Calculated 88 mg/dL (0-99); Magnesium 1.6 mg/dL (1.6-2.6); Osmolality,Calculated 303 (280-300); Potassium 4.6 mEq/L (3.5-5.1); Sodium 134 mEq/L (136-145); Total Protein 6.2 g/dL (6.4-8.9); Triglycerides 128 mg/dL (< 150); eGFR For African Americans > 60 (> 60); eGFR For Non-African Americans > 60 (> 60)
[2017-06-04] MEDS: Doxycycline 100 MG in 0.9 % Sodium Chloride Mini Bag 100 ML IVPB SCH ×2 (06:46→16:41)
[2017-06-04 08:06] LABS: Bilirubin,Urine Negative (Negative); Blood,Urine Negative (Negative); Clarity,Urine Clear (Clear); Color,Urine Yellow (Yellow); Glucose,Urine (UA) >=1000 mg/dL (Normal); Ketones,Urine Negative (Negative); Leukocyte Esterase,Urine Negative (Negative); Nitrite,Urine Negative (Negative); Protein,Urine 30 mg/dL (Neg-Trace); Specific Gravity,Urine 1.023 (1.010-1.025); Urobilinogen,Urine Normal (Normal)
[2017-06-04 08:08] LABS: Bacteria,Urine None Seen per hpf (None-Few); Hyaline Casts,Urine None Seen per lpf (None-Few); RBC,Urine 0-3 per hpf (0-3); Squamous Epithelial Cell,Urine Moderate per lpf (None-Few); WBC,Urine 0-3 per hpf (0-3)
[2017-06-04] MEDS: Famotidine 20 MG TABLET PO SCH (08:11)
[2017-06-04] MEDS: Aspirin Enteric Coated 81 MG Tablet PO SCH (08:11)
[2017-06-04] MEDS: Metoprolol XL (24 HR) Succ 25 MG TAB.ER.24H PO SCH (08:11)
[2017-06-04] MEDS: cloNIDine HCl 0.1 MG TABLET PO SCH ×4 (08:11→22:31)
--- NOTE | 2017-06-04 11:51 | Internal Med Progress Note ---
Date of Encounter: 06/04/17 Time of Encounter: 11:30 - Assessment and plan (1) Acute on chronic respiratory failure Current Visit: Yes Status: Acute Assessment and plan: Currently on oxygen supplementation. Seems to be improving overall but she feels she is going to take a long time to recover based on her prior episodes. Will wean as able. Bipap as needed. (2) COPD exacerbation Current Visit: Yes Status: Acute Assessment and plan: Minimal improvement. Continues to wheeze. Will keep IV steroids the same dose today. Continue aerosols as ordered. Mucolytics. Abx. (3) DM (diabetes mellitus), type 2 Current Visit: No Status: Chronic Assessment and plan: Blood sugars markedly elevated with steroids. Will adjust her insulin. Qualifiers: Diabetes mellitus long-term insulin use: with long-term use Diabetes mellitus complication status: with hyperglycemia Qualified Code(s): E11.65 - Type 2 diabetes mellitus with hyperglycemia; Z79.4 - FDC (current) 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; Z79.4 - FDC (current) 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; Z79.4 - emt intermediate (current ) 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; Z79.4 - FDC (current) 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 (4) Chronic pain Current Visit: No Status: Chronic Assessment and plan: Chronic issue Qualifiers: Chronic pain type: other chronic pain Qualified Code(s): G89.29 - Other chronic pain (5) Accelerated hypertension Current Visit: Yes Status: Chronic Assessment and plan: Fairly controlled. Continue same meds. (6) DVT prophylaxis Current Visit: Yes Status: Acute (7) CHF (congestive heart failure) Current Visit: Yes Status: Chronic Assessment and plan: Appears euvolemic at this time. Qualifiers: Heart failure type: diastolic Heart failure chronicity: chronic Qualified Code(s): I50.32 - Chronic diastolic (congestive) heart failure (8) HLD (hyperlipidemia) Current Visit: No Status: Chronic Assessment and plan: Chronic issue Qualifiers: Hyperlipidemia type: mixed hyperlipidemia Qualified Code(s): E78.2 - Mixed hyperlipidemia (9) JORGE (obstructive sleep apnea) Current Visit: No Status: Chronic Assessment and plan: Continue treatment. - Time Spent With Patient Total time spent is greater than 50% in coordination of care (as documented) at patient's floor/unit and/or counseling patient: - Subjective Interval history: Ms Ren is currently admitted for acute exac COPD. She remains moderate to high risk due to potential for worsening clinical and respiratory status. Ms Ren is feeling not much better. She says she knows it is going to rain because of how badly she feels. Still dyspneic and coughing. No fever. No CP. Has been intubated in the past at this time of the year so she is concerned this will not get better fast. - Constitutional Vitals: Temp Pulse Resp BP Pulse Ox 98.1 F 81 16 135/71 95 06/04/17 07:12 06/04/17 07:12 06/04/17 10:31 06/04/17 07:12 06/04/17 10:31 General appearance: Present: A&O X 3, answers questions appropriately - Head Head exam: Present: normocephalic - Eye Eye exam: Present: conjuntiva pink - ENT ENT exam: Present: mucous membranes dry - Respiratory Respiratory exam: Present: rales, rhonchi. Absent: wheezes - Cardiovascular Cardiovascular exam: Present: RRR. Absent: tachycardia - GI/Abdominal GI/Abdominal exam: Present: soft. Absent: tenderness - Extremities Exam Extremities exam: Present: warm. Absent: tenderness - Neurological Exam Neurological exam: Present: alert, oriented X3 - Skin Skin exam: Present: dry, warm Internal Medicine: Result - Labs CBC & Chem 7: 06/04/17 03:56 06/04/17 03:56 Labs: Short CBC 06/04/17 Range/Units 03:56 WBC 6.7 (4.3-11.1) K/mcL Hgb 9.8 L D (11.5-15.4) g/dL Hct 32.4 L (35.3-44.9) % Plt Count 371 (140-400) K/mcL Neutrophils # 5.9 (1.6-8.9) K/mcL BMP 06/04/17 03:56 Sodium 134 L Potassium 4.6 Chloride 104 Carbon Dioxide 23 BUN 28 H Creatinine 0.73 Glucose 442 H Calcium 8.6 Cardiac Enzymes 06/03/17 06/03/17 06/03/17 Range/Units 11:55 16:55 23:11 Troponin I < 0.03 < 0.03 < 0.03 (< 0.04) ng/mL Liver Function 06/04/17 Range/Units 03:56 Total Bilirubin 0.2 L (0.3-1.0) mg/dL AST 8 L (13-39) Units/L ALT 9 (7-52) Units/L Alkaline Phosphatase 88 (34-104) Units/L Albumin 3.7 (3.5-5.7) g/dL Urine 06/04/17 Range/Units 07:50 Urine Color Yellow (Yellow) Urine Clarity Clear (Clear) Urine pH 6.0 (5.0-8.0) pH Units Ur Specific [place] 1.023 (1.010-1.025) Urine Protein 30 H (Neg-Trace) mg/dL Urine Glucose (UA) >=1000 H (Normal) mg/dL - ABG Interpretation ABG results: ABG ABG pH 7.40 pH Units (7.32-7.45) 06/03/17 00:53 ABG pCO2 35 mmHg (35-45) 06/03/17 00:53 ABG pO2 162 mmHg (85-104) H 06/03/17 00:53 ABG O2 Saturation 100 % (95-98) H 06/03/17 00:53 PT/INR, D-dimer PT 12.7 Seconds (9.4-12.1) H 06/04/17 03:56 Consult Discharge Plan - Plan Referrals: Domitila Lau MD [Primary Care Provider] -
[2017-06-04] MEDS ORDERED: *HR* OxyCODONE Immed Rel 5 MG TABLET PO PRN (16:42)
[2017-06-04] MEDS: Insulin DETEMIR 100 UNIT/ML X5UNITS SQ SCH ×2 (16:47→22:31)
[2017-06-04] MEDS: *HR* OxyCODONE Immed Rel 5 MG TABLET PO PRN ×2 (16:49→22:30)
[2017-06-04] MEDS ORDERED: Dextrose Gel 15 GM/37.5 ML TUBE PO PRN ×2 (21:49)
[2017-06-04] MEDS ORDERED: D5% in Water 1,000 ML IVC PRN (21:49)
[2017-06-04] MEDS ORDERED: *HR* Dextrose 50 % in Water (Syg) 50 ML SYRINGE IVP PRN (21:49)
[2017-06-04] MEDS: amLODIPine 5 MG TABLET PO SCH (22:31)
[2017-06-04] MEDS: Insulin LISPRO 300 UNITS/3 ML VIAL SQ SCH (22:32)
[2017-06-04] MEDS: Ondansetron 4 MG/2 ML VIAL IVP PRN (23:33)
[2017-06-05] MEDS: methylPREDNISolone 125 MG/2 ML VIAL IVP SCH ×3 (00:25→16:55)
[2017-06-05] MEDS: Ipratropium/Albuterol Neb 3 ML IH SCH ×6 (04:07→23:27)
[2017-06-05 04:25] LABS: Hematocrit 31.8 % (35.3-44.9); Mean Corpuscular HGB Conc 31.4 g/dL (31.6-35.5); Mean Corpuscular Hemoglobin 27.2 pg (28.0-33.3); Mean Corpuscular Volume 86.4 fL (83.0-100.0); Mean Platelet Volume 10.3 fL (9.4-12.4); Platelet Count 399 K/mcL (140-400); Red Blood Count 3.68 M/mcL (3.82-4.97); Red Cell Distribution Width 16.4 % (11.5-14.5)
[2017-06-05 04:45] LABS: BUN/Creatinine Ratio 42 (6-26); Blood Urea Nitrogen 27 mg/dL (6-20); Carbon Dioxide 26 mEq/L (23-29); Chloride 103 mEq/L (98-107); Glucose 222 mg/dL (70-105); Magnesium 1.8 mg/dL (1.6-2.6); Osmolality,Calculated 298 (280-300); Potassium 3.9 mEq/L (3.5-5.1); Sodium 138 mEq/L (136-145); eGFR For African Americans > 60 (> 60); eGFR For Non-African Americans > 60 (> 60)
[2017-06-05] MEDS: *HR* OxyCODONE Immed Rel 5 MG TABLET PO PRN ×4 (05:26→20:11)
[2017-06-05] MEDS: Doxycycline 100 MG in 0.9 % Sodium Chloride Mini Bag 100 ML IVPB SCH ×2 (05:28→16:55)
[2017-06-05] MEDS: Insulin LISPRO 300 UNITS/3 ML VIAL SQ SCH ×4 (08:30→20:18)
[2017-06-05] MEDS: Metoprolol XL (24 HR) Succ 25 MG TAB.ER.24H PO SCH (08:30)
[2017-06-05] MEDS: Famotidine 20 MG TABLET PO SCH (08:30)
[2017-06-05] MEDS: Aspirin Enteric Coated 81 MG Tablet PO SCH (08:30)
[2017-06-05] MEDS: cloNIDine HCl 0.1 MG TABLET PO SCH ×4 (08:30→20:12)
[2017-06-05] MEDS: Levofloxacin 750 MG/150 ML 750 MG/150 ML BAG IVPB SCH (09:14)
[2017-06-05] MEDS: Ondansetron 4 MG/2 ML VIAL IVP PRN ×2 (09:16→17:54)
--- NOTE | 2017-06-05 17:20 | Internal Med Progress Note ---
Date of Encounter: 06/05/17 Time of Encounter: 15:00 - Assessment and plan (1) Acute on chronic respiratory failure Current Visit: Yes Status: Acute Assessment and plan: Currently on oxygen supplementation. Improved a little overnight. Continue supportive care at this time. (2) COPD exacerbation Current Visit: Yes Status: Acute Assessment and plan: Continue same IV steroids today with plans to taper tomorrow. Has group B strep and gram neg celestino in sputum. Levaquin started. (3) DM (diabetes mellitus), type 2 Current Visit: No Status: Chronic Assessment and plan: Blood sugars appear to be better today. Continue same insulin coverage. Qualifiers: Diabetes mellitus long term care social worker insulin use: with long term care social worker use Diabetes mellitus complication status: with hyperglycemia Qualified Code(s): E11.65 - Type 2 diabetes mellitus with hyperglycemia; Z79.4 - halfway (current) 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; Z79.4 - ocean transportation intermediary (current) 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; Z79.4 - halfway (current ) 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; Z79.4 - ocean transportation intermediary (current) 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 (4) Chronic pain Current Visit: No Status: Chronic Assessment and plan: Chronic issue Qualifiers: Chronic pain type: other chronic pain Qualified Code(s): G89.29 - Other chronic pain (5) Accelerated hypertension Current Visit: Yes Status: Chronic Assessment and plan: Fairly controlled. Continue same meds. (6) DVT prophylaxis Current Visit: Yes Status: Acute (7) CHF (congestive heart failure) Current Visit: Yes Status: Chronic Assessment and plan: Appears euvolemic at this time. No change to meds. Qualifiers: Heart failure type: diastolic Heart failure chronicity: chronic Qualified Code(s): I50.32 - Chronic diastolic (congestive) heart failure (8) HLD (hyperlipidemia) Current Visit: No Status: Chronic Assessment and plan: Chronic issue Qualifiers: Hyperlipidemia type: mixed hyperlipidemia Qualified Code(s): E78.2 - Mixed hyperlipidemia (9) JORGE (obstructive sleep apnea) Current Visit: No Status: Chronic Assessment and plan: Continue treatment. - Time Spent With Patient Total time spent is greater than 50% in coordination of care (as documented) at patient's floor/unit and/or counseling patient: - Subjective Interval history: Ms Ren is currently admitted for acute exac COPD. She remains moderate to high risk due to potential for worsening clinical and respiratory status. Ms Ren is a little better today. She feels very tired. Still coughing a lot. No CP. No fever. NO GI issues. - Constitutional Vitals: Temp Pulse Resp BP Pulse Ox 97.7 F 87 15 140/90 98 06/05/17 16:00 06/05/17 16:00 06/05/17 16:00 06/05/17 16:00 06/05/17 16:00 General appearance: Present: A&O X 3, answers questions appropriately - Head Head exam: Present: normocephalic - Eye Eye exam: Present: conjuntiva pink - ENT ENT exam: Present: mucous membranes dry - Respiratory Respiratory exam: Present: rales, rhonchi, wheezes - Cardiovascular Cardiovascular exam: Present: RRR. Absent: tachycardia - GI/Abdominal GI/Abdominal exam: Present: soft. Absent: tenderness - Extremities Exam Extremities exam: Present: warm. Absent: tenderness - Neurological Exam Neurological exam: Present: alert, oriented X3 - Skin Skin exam: Present: dry, warm Internal Medicine: Result - Labs CBC & Chem 7: 06/05/17 03:51 06/05/17 03:51 Labs: Short CBC 06/05/17 Range/Units 03:51 WBC 10.2 D (4.3-11.1) K/mcL Hgb 10.0 L (11.5-15.4) g/dL Hct 31.8 L (35.3-44.9) % Plt Count 399 (140-400) K/mcL BMP 06/05/17 03:51 Sodium 138 Potassium 3.9 Chloride 103 Carbon Dioxide 26 BUN 27 H Creatinine 0.65 Glucose 222 H Calcium 9.0 - ABG Interpretation ABG results: ABG ABG pH 7.40 pH Units (7.32-7.45) 06/03/17 00:53 ABG pCO2 35 mmHg (35-45) 06/03/17 00:53 ABG pO2 162 mmHg (85-104) H 06/03/17 00:53 ABG O2 Saturation 100 % (95-98) H 06/03/17 00:53 PT/INR, D-dimer PT 12.7 Seconds (9.4-12.1) H 06/04/17 03:56 Consult Discharge Plan - Plan Referrals: Domitila Lau MD [Primary Care Provider] -
[2017-06-05] MEDS: amLODIPine 5 MG TABLET PO SCH (20:11)
[2017-06-05] MEDS: Insulin DETEMIR 100 UNIT/ML X5UNITS SQ SCH (20:12)
[2017-06-05 23:41] LABS: Estimated Average Glucose 206 mg/dl; Hemoglobin A1C 8.8 %
[2017-06-06] MEDS: methylPREDNISolone 125 MG/2 ML VIAL IVP SCH ×3 (00:01→17:47)
[2017-06-06] MEDS: *HR* OxyCODONE Immed Rel 5 MG TABLET PO PRN ×6 (01:02→22:30)
[2017-06-06] MEDS: Ipratropium/Albuterol Neb 3 ML IH SCH ×5 (03:24→19:52)
[2017-06-06 04:05] LABS: Hematocrit 35.6 % (35.3-44.9); Hemoglobin 11.1 g/dL (11.5-15.4); Mean Corpuscular HGB Conc 31.2 g/dL (31.6-35.5); Mean Corpuscular Hemoglobin 26.9 pg (28.0-33.3); Mean Corpuscular Volume 86.4 fL (83.0-100.0); Mean Platelet Volume 10.3 fL (9.4-12.4); Platelet Count 420 K/mcL (140-400); Red Blood Count 4.12 M/mcL (3.82-4.97); Red Cell Distribution Width 16.5 % (11.5-14.5)
[2017-06-06 04:29] LABS: BUN/Creatinine Ratio 38 (6-26); Blood Urea Nitrogen 27 mg/dL (6-20); Calcium 8.7 mg/dL (8.6-10.3); Carbon Dioxide 24 mEq/L (23-29); Chloride 105 mEq/L (98-107); Glucose 319 mg/dL (70-105); Osmolality,Calculated 303 (280-300); Potassium 4.2 mEq/L (3.5-5.1); Sodium 138 mEq/L (136-145); eGFR For African Americans > 60 (> 60); eGFR For Non-African Americans > 60 (> 60)
[2017-06-06] MEDS: Doxycycline 100 MG in 0.9 % Sodium Chloride Mini Bag 100 ML IVPB SCH (05:19)
[2017-06-06] MEDS: Ondansetron 4 MG/2 ML VIAL IVP PRN ×2 (07:33→21:19)
[2017-06-06] MEDS: Insulin LISPRO 300 UNITS/3 ML VIAL SQ SCH ×4 (07:34→21:27)
[2017-06-06] MEDS: Metoprolol XL (24 HR) Succ 25 MG TAB.ER.24H PO SCH (09:16)
[2017-06-06] MEDS: Famotidine 20 MG TABLET PO SCH (09:16)
[2017-06-06] MEDS: cloNIDine HCl 0.1 MG TABLET PO SCH ×4 (09:16→21:15)
[2017-06-06] MEDS: Levofloxacin 750 MG/150 ML 750 MG/150 ML BAG IVPB SCH (09:16)
[2017-06-06] MEDS: Aspirin Enteric Coated 81 MG Tablet PO SCH (09:16)
--- NOTE | 2017-06-06 15:17 | Internal Med Progress Note ---
<Rogelio Mitchell - Last Filed: 06/06/17 17:25> Date of Encounter: 06/06/17 Time of Encounter: 11:00 - Assessment and plan (1) Acute on chronic respiratory failure Current Visit: Yes Status: Acute Assessment and plan: Continue bronchodilators, steroids, and Levaquin; will de-escalate Solu-Medrol schedule tomorrow and will convert to PO taper in subsequent days. Continuing Levaquin through 7 days. Continue scheduled bronchodilators as patient is still having episodes of shortness of air. Qualifiers: Respiratory failure complication: hypoxia Qualified Code(s): J96.21 - Acute and chronic respiratory failure with hypoxia (2) COPD exacerbation Current Visit: Yes Status: Acute Assessment and plan: Continue Solu-medrol at q12h (thuan change from q8h). Has group B strep and gram neg celestino in sputum. Levaquin started -- (day 2). (3) Accelerated hypertension Current Visit: Yes Status: Chronic Assessment and plan: Fairly controlled. Continue same meds. Added PRN Hydralazine. (4) DM (diabetes mellitus), type 2 Current Visit: Yes Status: Chronic Assessment and plan: will keep same Detemir and escalate to HD-SSI. Expect better control once Steroids tapered. 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 (7) Chronic pain Current Visit: No Status: Chronic Assessment and plan: Chronic issue Qualifiers: Chronic pain type: other chronic pain Qualified Code(s): G89.29 - Other chronic pain (8) DVT prophylaxis Current Visit: Yes Status: Acute Assessment and plan: SQ Hep - Time Spent With Patient Total time spent is greater than 50% in coordination of care (as documented) at patient's floor/unit and/or counseling patient: - Subjective Interval history: Patient states that she had bad shortness of breath and pain with deep inspiration this morning that was amenable to breathing treatment. As of my bedside exam, patient stated she felt much better. Patient is day two on IV Levaquin and has been on Solu-Medrol 60 mg TID IVP. No other acute concerns per patient or nursing. - Constitutional Vitals: Temp Pulse Resp BP Pulse Ox 97.5 F L 93 15 145/79 98 06/06/17 11:37 06/06/17 11:37 06/06/17 11:37 06/06/17 11:37 06/06/17 11:37 CONSTITUTIONAL: Alert and oriented X3, well-nourished, well appearing, in no apparent distress; just finished breathing treatment HEAD: Normocephalic; atraumatic. EYES: PER, no scleral icterus, no drainage, no conjunctival injection NOSE: The nose is normal in appearance without rhinorrhea Oropharynx: pink/moist, no tonsillar edema/erythema/exudates RESP: NRD without use of accessory musculature, does have scattered expiratory wheezes, no rales or rhonchi CARD: Regular rhythm, without murmurs, rubs, or gallop ABD: grossly normal, soft, non-tender SKIN: normal appearance, no pallor/diaphoresis,mottling,jaundice,cyanosis EXT: Rad pulses 2+ and symmetrical; no significant pedal edema PSYCH: appropriate mood/affect General appearance: Present: A&O X 3, answers questions appropriately Internal Medicine: Result - Labs CBC & Chem 7: 06/06/17 03:34 06/06/17 03:34 Labs: Short CBC 06/06/17 Range/Units 03:34 WBC 8.4 (4.3-11.1) K/mcL Hgb 11.1 L (11.5-15.4) g/dL Hct 35.6 (35.3-44.9) % Plt Count 420 H (140-400) K/mcL BMP 06/06/17 03:34 Sodium 138 Potassium 4.2 Chloride 105 Carbon Dioxide 24 BUN 27 H Creatinine 0.71 Glucose 319 H Calcium 8.7 - ABG Interpretation ABG results: ABG ABG pH 7.40 pH Units (7.32-7.45) 06/03/17 00:53 ABG pCO2 35 mmHg (35-45) 06/03/17 00:53 ABG pO2 162 mmHg (85-104) H 06/03/17 00:53 ABG O2 Saturation 100 % (95-98) H 06/03/17 00:53 PT/INR, D-dimer PT 12.7 Seconds (9.4-12.1) H 06/04/17 03:56 Consult Discharge Plan - Plan Referrals: Domitila Lau MD [Primary Care Provider] - <Diego Mullins - Last Filed: 06/06/17 18:32> Date of Encounter: 06/06/17 - Assessment and plan (1) Acute on chronic respiratory failure Current Visit: Yes Status: Acute (2) COPD exacerbation Current Visit: Yes Status: Acute (3) HLD (hyperlipidemia) Current Visit: No Status: Chronic Qualifiers: Hyperlipidemia type: mixed hyperlipidemia Qualified Code(s): E78.2 - Mixed hyperlipidemia (4) DM (diabetes mellitus), type 2 Current Visit: Yes Status: Chronic Qualifiers: Diabetes mellitus rn traveling insulin use: with care home use Diabetes mellitus complication status: with hyperglycemia Qualified Code(s): E11.65 - Type 2 diabetes mellitus with hyperglycemia; Z79.4 - shopping centre manager (current) 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; Z79.4 - shopping centre manager (current) 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; Z79.4 - longterm (current ) 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; Z79.4 - longterm (current) 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 (5) JORGE (obstructive sleep apnea) Current Visit: No Status: Chronic (6) Chronic pain Current Visit: No Status: Chronic Qualifiers: Chronic pain type: other chronic pain Qualified Code(s): G89.29 - Other chronic pain (7) Accelerated hypertension Current Visit: Yes Status: Chronic (8) DVT prophylaxis Current Visit: Yes Status: Acute - Time Spent With Patient Total time spent is greater than 50% in coordination of care (as documented) at patient's floor/unit and/or counseling patient: - Constitutional Vitals: Temp Pulse Resp BP Pulse Ox 97.6 F 100 16 179/84 97 06/06/17 15:24 06/06/17 15:24 06/06/17 15:42 06/06/17 15:24 06/06/17 15:42 Internal Medicine: Result - Labs CBC & Chem 7: 06/06/17 03:34 06/06/17 03:34 Labs: Short CBC 06/06/17 Range/Units 03:34 WBC 8.4 (4.3-11.1) K/mcL Hgb 11.1 L (11.5-15.4) g/dL Hct 35.6 (35.3-44.9) % Plt Count 420 H (140-400) K/mcL BMP 06/06/17 03:34 Sodium 138 Potassium 4.2 Chloride 105 Carbon Dioxide 24 BUN 27 H Creatinine 0.71 Glucose 319 H Calcium 8.7 - ABG Interpretation ABG results: ABG ABG pH 7.40 pH Units (7.32-7.45) 06/03/17 00:53 ABG pCO2 35 mmHg (35-45) 06/03/17 00:53 ABG pO2 162 mmHg (85-104) H 06/03/17 00:53 ABG O2 Saturation 100 % (95-98) H 06/03/17 00:53 PT/INR, D-dimer PT 12.7 Seconds (9.4-12.1) H 06/04/17 03:56 - Attending Attestation I examined this patient and my medical decision-making was reviewed with the Resident Physician on 06/06/17. I agree with the documented findings, disposition and treatment plan as described except to the extent set forth below. Ms Ren is currently admitted for acute exac COPD. She remains moderate to high risk due to potential for worsening respiratory status. Ms Ren is beginning to feel a little better. Had a bad night with dyspnea and cough. No fever. Less wheezing today. Exam alert. Comfortable Mucus membranes dry Heart reg and not tachy Lungs with scattered rhonchi and wheeze abd soft I/P 1. COPD exac Further diagnoses and plan as above.
[2017-06-06] MEDS: *HR* Heparin 5,000 UNIT/ML VIAL SQ SCH (17:47)
[2017-06-06] MEDS: Insulin DETEMIR 100 UNIT/ML X5UNITS SQ SCH (21:16)
[2017-06-06] MEDS: amLODIPine 5 MG TABLET PO SCH (21:16)
[2017-06-07] MEDS: Ipratropium/Albuterol Neb 3 ML IH SCH ×6 (00:24→19:34)
[2017-06-07] MEDS: methylPREDNISolone 125 MG/2 ML VIAL IVP SCH ×2 (01:03→08:04)
[2017-06-07] MEDS: *HR* OxyCODONE Immed Rel 5 MG TABLET PO PRN ×5 (02:48→21:00)
[2017-06-07 04:02] LABS: Hematocrit 35.7 % (35.3-44.9); Hemoglobin 10.8 g/dL (11.5-15.4); Mean Corpuscular HGB Conc 30.3 g/dL (31.6-35.5); Mean Corpuscular Hemoglobin 26.5 pg (28.0-33.3); Mean Corpuscular Volume 87.5 fL (83.0-100.0); Mean Platelet Volume 10.2 fL (9.4-12.4); Nucleated Red Blood Cells 1.4 /100 WBC (0); Platelet Count 411 K/mcL (140-400); Red Blood Count 4.08 M/mcL (3.82-4.97); Red Cell Distribution Width 16.7 % (11.5-14.5)
[2017-06-07 04:21] LABS: BUN/Creatinine Ratio 34 (6-26); Blood Urea Nitrogen 22 mg/dL (6-20); Calcium 8.4 mg/dL (8.6-10.3); Carbon Dioxide 22 mEq/L (23-29); Chloride 104 mEq/L (98-107); Glucose 374 mg/dL (70-105); Osmolality,Calculated 303 (280-300); Potassium 4.3 mEq/L (3.5-5.1); Sodium 137 mEq/L (136-145); eGFR For African Americans > 60 (> 60); eGFR For Non-African Americans > 60 (> 60)
[2017-06-07 04:47] LABS: Anisocytosis 1+ (Not Present); Lymphocytes # 0.8 K/mcL (0.6-4.6); Monocytes # 0.2 K/mcL (0.0-1.3); Neutrophils # 8.9 K/mcL (1.6-8.9); Platelet Estimate Normal (Normal); Polychromasia 1+ (Not Present)
[2017-06-07] MEDS: *HR* Heparin 5,000 UNIT/ML VIAL SQ SCH ×2 (05:52→17:07)
[2017-06-07] MEDS: Insulin LISPRO 300 UNITS/3 ML VIAL SQ SCH ×4 (07:59→21:02)
[2017-06-07] MEDS: Famotidine 20 MG TABLET PO SCH (08:03)
[2017-06-07] MEDS: Metoprolol XL (24 HR) Succ 25 MG TAB.ER.24H PO SCH (08:04)
[2017-06-07] MEDS: cloNIDine HCl 0.1 MG TABLET PO SCH ×4 (08:04→20:59)
[2017-06-07] MEDS: Levofloxacin 750 MG/150 ML 750 MG/150 ML BAG IVPB SCH (08:04)
[2017-06-07] MEDS: Aspirin Enteric Coated 81 MG Tablet PO SCH (08:04)
--- NOTE | 2017-06-07 09:04 | Discharge Summary ---
Orders not resulted at time of discharge: Pending orders 06/03/17 11:22 Streptococcus A Rapid Test [RM] Stat 06/08/17 04:00 Basic Metabolic Panel AM 0400 Complete Blood Count [HEME] AM 0400 Date of Encounter: 06/07/17 Time of Encounter: 09:30 - Discharge Diagnosis (1) HLD (hyperlipidemia) Status: Chronic Qualifiers: Hyperlipidemia type: mixed hyperlipidemia Qualified Code(s): E78.2 - Mixed hyperlipidemia (2) Acute on chronic respiratory failure Status: Acute Qualifiers: Respiratory failure complication: hypoxia Qualified Code(s): J96.21 - Acute and chronic respiratory failure with hypoxia (3) DM (diabetes mellitus), type 2 Status: Chronic Qualifiers: Diabetes mellitus terminal make up operator insulin use: with chcf use Diabetes mellitus complication status: with hyperglycemia Qualified Code(s): E11.65 - Type 2 diabetes mellitus with hyperglycemia; Z79.4 - longterm (current) 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; Z79.4 - longterm (current) 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; Z79.4 - longterm (current ) 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; Z79.4 - longterm (current) 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 (4) JORGE (obstructive sleep apnea) Status: Chronic (5) Chronic pain Status: Chronic Qualifiers: Chronic pain type: other chronic pain Qualified Code(s): G89.29 - Other chronic pain (6) COPD exacerbation Status: Acute (7) Accelerated hypertension Status: Chronic (8) DVT prophylaxis Status: Acute Hospital course: Ms. Ren is a 57 year old female - Time Spent with Patient Total time spent providing and/or coordinating discharge services: - Discharge Medications Home Medications: cloNIDine HCl [Clonidine HCl] 0.3 mg PO QID 05/16/16 [History] Oxygen 3 l IH AD 07/19/16 [History] Insulin Glargine [Lantus] 38 unit SQ HS 08/10/16 [History] amLODIPine [Norvasc] 5 mg PO HS #30 tab 09/30/16 [Rx] Albuterol Sulfate [Ventolin Hfa] 2 puff IH Q4H PRN #1 inh 10/15/16 [Rx] Pantoprazole Sodium [Protonix] 40 mg PO BIDWM #60 tablet. 11/10/16 [Rx] Ipratropium/Albuterol Neb [Duoneb] 3 ml IH Q4HR 11/20/16 [History] Ranitidine HCl [Zantac] 150 mg PO DAILY 11/20/16 [History] Aspirin [Lo-Dose Aspirin EC] 81 mg PO DAILY 01/12/17 [History] Losartan/Hydrochlorothiazide [Losartan-Hctz 100-25 mg Tab] 1 tab PO DAILY [History] Furosemide [Lasix] 40 mg PO DAILY PRN 01/31/17 [History] Insulin LISPRO [HumaLOG] 0 units SQ TID 05/02/17 [History] Nitroglycerin [Nitrostat] 0.4 mg PO Q5M 06/03/17 [History] Ondansetron ODT [Zofran ODT] 1 tab PO Q6HR PRN 06/03/17 [History] Potassium Chloride [Klor-Con 10] 10 meq PO DAILY 06/03/17 [History] Insulin LISPRO [HumaLOG] 0 units SQ TID 06/04/17 [History] Allergies/Adverse Reactions: 3 Allergy/AdvReac Type Severity Reaction Status Date / Time NSAIDS (Non-Steroidal Allergy Unknown See Verified 06/03/17 07:04 Anti-Inflamma Comments Penicillins Allergy Unknown Hives Verified 06/03/17 07:04 lisinopril AdvReac Cough Verified 06/03/17 07:04 lorazepam [From Ativan] AdvReac Confusion Verified 06/03/17 07:04 tramadol AdvReac Nausea Verified 06/03/17 07:04 Date of admission: 06/03/17 11:01 Primary care physician: Domitila Lau MD Consults: 06/03/17 11:53 Consult to Architectural Draftsperson [CONS] Routine Reason for SW Consult: has home oxygen 06/03/17 20:41 Consult to Pulmonology [CONS] Routine Consulting Provider: [facility] Reason for Consult: COPD exacerbation, respiratory failure Call Completed: Yes Discharging clinician: Romian Girard Anticipated date of discharge: 06/07/17 - Constitutional Vitals: Temp Pulse Resp BP Pulse Ox 97.7 F 93 18 180/108 96 06/07/17 05:00 06/07/17 07:00 06/07/17 07:32 06/07/17 07:00 06/07/17 07:32 General appearance: Present: A&O X 3, answers questions appropriately - Patient Status Condition: Good - Discharge Instructions Follow Up With: Domitila Lau MD [Primary Care Provider] -
[2017-06-07] MEDS ORDERED: Furosemide 40 MG TABLET PO PRN (10:36)
[2017-06-07] MEDS: Losartan/HCTZ 50-12.5 TABLET PO SCH (13:35)
[2017-06-07] MEDS: predniSONE 20 MG TABLET PO SCH (14:21)
[2017-06-07] MEDS: Ondansetron 4 MG/2 ML VIAL IVP PRN (14:21)
--- NOTE | 2017-06-07 16:53 | Internal Med Progress Note ---
<GirardRomain - Last Filed: 06/07/17 16:59> Date of Encounter: 06/07/17 Time of Encounter: 10:00 - Assessment and plan (1) Accelerated hypertension Current Visit: Yes Status: Chronic Assessment and plan: Poorly controlled hypertension. Added hydralazine 25 mg by mouth 3 times a day , amlodipine 10 g by mouth daily, losartan 50 by mouth daily, continue Lasix 40 mg by mouth daily when necessary. Discharge tomorrow if blood pressure stabilizes (2) COPD exacerbation Current Visit: Yes Status: Acute Assessment and plan: Steroid tapering to PO prednisone Has group B strep and gram neg celestino in sputum. Continue Levaquin (day 3/7). Continue DuoNeb. Plan for discharge tomorrow if blood pressure stabilizes. (3) Acute on chronic respiratory failure Current Visit: Yes Status: Acute Assessment and plan: Continue bronchodilators, steroids, and Levaquin; continue steroid taper. Continuing Levaquin through 7 days. Continue scheduled bronchodilators as patient is still having episodes of shortness of air. Qualifiers: Respiratory failure complication: hypoxia Qualified Code(s): J96.21 - Acute and chronic respiratory failure with hypoxia (4) HLD (hyperlipidemia) Current Visit: No Status: Chronic Assessment and plan: Chronic issue Qualifiers: Hyperlipidemia type: mixed hyperlipidemia Qualified Code(s): E78.2 - Mixed hyperlipidemia (5) DM (diabetes mellitus), type 2 Current Visit: Yes Status: Chronic Assessment and plan: Patient's glucose level continues to be elevated. Expect better control once Steroids tapered. Qualifiers: Diabetes mellitus retirement insulin use: with retirement use Diabetes mellitus complication status: with hyperglycemia Qualified Code(s): E11.65 - Type 2 diabetes mellitus with hyperglycemia; Z79.4 - rat exterminator (current) 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; Z79.4 - [facility] (current) 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; Z79.4 - [facility] (current ) 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; Z79.4 - rat exterminator (current) 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 (6) JORGE (obstructive sleep apnea) Current Visit: No Status: Chronic Assessment and plan: Continue treatment. (7) Chronic pain Current Visit: No Status: Chronic Assessment and plan: Chronic issue Qualifiers: Chronic pain type: other chronic pain Qualified Code(s): G89.29 - Other chronic pain (8) DVT prophylaxis Current Visit: Yes Status: Acute Assessment and plan: SQ Hep - Time Spent With Patient Total time spent is greater than 50% in coordination of care (as documented) at patient's floor/unit and/or counseling patient: - Subjective Interval history: Patient reports worsening shortness of breath today. Oxygen increased to 4 L. She has difficulty getting up. Unable to ambulate. Reports nausea but no vomiting. Denies chest pain. Poor appetite and not feeling well overall. - Constitutional Vitals: Temp Pulse Resp BP Pulse Ox 98.1 F 96 20 191/111 96 06/07/17 16:39 06/07/17 16:39 06/07/17 16:39 06/07/17 16:39 06/07/17 16:39 General appearance: Present: A&O X 3, answers questions appropriately - Head Head exam: Present: atraumatic, normocephalic - Eye Eye exam: Present: PERRL, conjuntiva pink, sclera anicteric Pupils: Present: PERRL - Neck Neck exam general surgery: Present: supple, trachea midline. Absent: lymphadenopathy - Respiratory Respiratory exam: Present: rales. Absent: accessory muscle use, rhonchi, wheezes - Cardiovascular Cardiovascular exam: Present: RRR, +S1, +S2. Absent: diastolic murmur, gallop, rubs, systolic murmur - GI/Abdominal GI/Abdominal exam: Present: normal bowel sounds, soft, no peritoneal signs. Absent: distended, tenderness - Extremities Exam Extremities exam: Present: warm, radial pulses palpable and symmetrical. Absent : calf tenderness, cyanotic, pedal edema - Neurological Exam Neurological exam: Present: CN II-XII intact, oriented X3, no focal deficits. Absent: pronater drift, facial droop, speech deficit - Skin Skin exam: Present: dry, intact Internal Medicine: Result - Labs CBC & Chem 7: 06/07/17 03:43 06/07/17 03:43 Labs: Short CBC 06/07/17 Range/Units 03:43 WBC 9.9 (4.3-11.1) K/mcL Hgb 10.8 L (11.5-15.4) g/dL Hct 35.7 (35.3-44.9) % Plt Count 411 H (140-400) K/mcL Neutrophils # 8.9 (1.6-8.9) K/mcL BMP 06/07/17 03:43 Sodium 137 Potassium 4.3 Chloride 104 Carbon Dioxide 22 L BUN 22 H Creatinine 0.64 Glucose 374 H Calcium 8.4 L - ABG Interpretation ABG results: ABG ABG pH 7.40 pH Units (7.32-7.45) 06/03/17 00:53 ABG pCO2 35 mmHg (35-45) 06/03/17 00:53 ABG pO2 162 mmHg (85-104) H 06/03/17 00:53 ABG O2 Saturation 100 % (95-98) H 06/03/17 00:53 PT/INR, D-dimer PT 12.7 Seconds (9.4-12.1) H 06/04/17 03:56 - Impressions Impressions Chest X-Ray 06/07/17 13:46 IMPRESSION: No acute cardiopulmonary disease D/ / Darnell Cabrera MD / Darnell Cabrera MD Interpreting Provider: Darnell Cabrera MD Consult Discharge Plan - Plan Referrals: Domitila Lau MD [Primary Care Provider] - <Medina Girard - Last Filed: 06/07/17 17:16> Date of Encounter: 06/07/17 - Time Spent With Patient Total time spent is greater than 50% in coordination of care (as documented) at patient's floor/unit and/or counseling patient: - Constitutional Vitals: Temp Pulse Resp BP Pulse Ox 98.1 F 96 20 191/111 96 06/07/17 16:39 06/07/17 16:39 06/07/17 16:39 06/07/17 16:39 06/07/17 16:39 Internal Medicine: Result - Labs CBC & Chem 7: 06/07/17 03:43 06/07/17 03:43 Labs: Short CBC 06/07/17 Range/Units 03:43 WBC 9.9 (4.3-11.1) K/mcL Hgb 10.8 L (11.5-15.4) g/dL Hct 35.7 (35.3-44.9) % Plt Count 411 H (140-400) K/mcL Neutrophils # 8.9 (1.6-8.9) K/mcL BMP 06/07/17 03:43 Sodium 137 Potassium 4.3 Chloride 104 Carbon Dioxide 22 L BUN 22 H Creatinine 0.64 Glucose 374 H Calcium 8.4 L - ABG Interpretation ABG results: ABG ABG pH 7.40 pH Units (7.32-7.45) 06/03/17 00:53 ABG pCO2 35 mmHg (35-45) 06/03/17 00:53 ABG pO2 162 mmHg (85-104) H 06/03/17 00:53 ABG O2 Saturation 100 % (95-98) H 06/03/17 00:53 PT/INR, D-dimer PT 12.7 Seconds (9.4-12.1) H 06/04/17 03:56 - Impressions Impressions Chest X-Ray 06/07/17 13:46 IMPRESSION: No acute cardiopulmonary disease D/ / Darnell Cabrera MD / Darnell Cabrera MD Interpreting Provider: Darnell Cabrera MD - Attending Attestation I saw and examined this patient independently, and my medical decision making was reviewed with the resident physician on 06/07 2017. I agree with the documented findings, assessment and treatment plan as described in the progress note.
[2017-06-07] MEDS: hydrALAZINE 25 MG TABLET PO SCH (16:58)
[2017-06-07] MEDS: amLODIPine 5 MG TABLET PO SCH (16:58)
[2017-06-07] MEDS: Insulin DETEMIR 100 UNIT/ML X5UNITS SQ SCH (21:02)
[2017-06-07] MEDS: Levalbuterol Neb 1.25 MG/3 ML IH SCH (23:07)
[2017-06-08] MEDS: hydrALAZINE 25 MG TABLET PO SCH ×3 (01:19→15:48)
[2017-06-08] MEDS: *HR* OxyCODONE Immed Rel 5 MG TABLET PO PRN ×5 (01:20→20:39)
[2017-06-08] MEDS: Levalbuterol Neb 1.25 MG/3 ML IH SCH ×5 (03:45→20:18)
[2017-06-08] MEDS: Ondansetron 4 MG/2 ML VIAL IVP PRN ×2 (04:24→15:48)
[2017-06-08 05:13] LABS: Basophils % 0.1 %; Hematocrit 37.2 % (35.3-44.9); Hemoglobin 11.3 g/dL (11.5-15.4); Lymphocytes # 2.6 K/mcL (0.6-4.6); Lymphocytes % 18.3 %; Mean Corpuscular HGB Conc 30.4 g/dL (31.6-35.5); Mean Corpuscular Hemoglobin 26.8 pg (28.0-33.3); Mean Corpuscular Volume 88.4 fL (83.0-100.0); Mean Platelet Volume 10.2 fL (9.4-12.4); Monocytes # 1.2 K/mcL (0.0-1.3); Monocytes % 8.4 %; Neutrophils # 9.2 K/mcL (1.6-8.9); Nucleated Red Blood Cells 2.3 /100 WBC (0); Platelet Count 388 K/mcL (140-400); Red Blood Count 4.21 M/mcL (3.82-4.97); Red Cell Distribution Width 17.1 % (11.5-14.5); Segmented Neutrophils % 65.2 %
[2017-06-08] MEDS: *HR* Heparin 5,000 UNIT/ML VIAL SQ SCH ×2 (05:14→22:20)
[2017-06-08 05:33] LABS: BUN/Creatinine Ratio 38 (6-26); Blood Urea Nitrogen 22 mg/dL (6-20); Calcium 8.6 mg/dL (8.6-10.3); Carbon Dioxide 26 mEq/L (23-29); Chloride 103 mEq/L (98-107); Glucose 226 mg/dL (70-105); Osmolality,Calculated 294 (280-300); Potassium 3.4 mEq/L (3.5-5.1); Sodium 137 mEq/L (136-145); eGFR For African Americans > 60 (> 60); eGFR For Non-African Americans > 60 (> 60)
[2017-06-08 05:36] LABS: Anisocytosis 1+ (Not Present); Poikilocytosis 1+ (Not Present)
[2017-06-08 05:37] LABS: Hypersegmented Neutrophils Present (Not Present); Large Platelets Present (Not Present); Platelet Estimate Normal (Normal); Polychromasia 1+ (Not Present)
[2017-06-08] MEDS: amLODIPine 5 MG TABLET PO SCH (07:52)
[2017-06-08] MEDS: levoFLOXacin 750 MG TABLET PO SCH (07:52)
[2017-06-08] MEDS: predniSONE 20 MG TABLET PO SCH (07:52)
[2017-06-08] MEDS: Famotidine 20 MG TABLET PO SCH (07:53)
[2017-06-08] MEDS: cloNIDine HCl 0.1 MG TABLET PO SCH (07:53)
[2017-06-08] MEDS: Aspirin Enteric Coated 81 MG Tablet PO SCH (07:53)
[2017-06-08] MEDS: Metoprolol XL (24 HR) Succ 25 MG TAB.ER.24H PO SCH (07:53)
[2017-06-08] MEDS: Losartan/HCTZ 50-12.5 TABLET PO SCH (07:53)
[2017-06-08] MEDS: Insulin LISPRO 300 UNITS/3 ML VIAL SQ SCH ×4 (07:54→22:22)
--- NOTE | 2017-06-08 09:03 | Internal Med Progress Note ---
<Darin Flores - Last Filed: 06/08/17 13:22> Date of Encounter: 06/08/17 Time of Encounter: 08:59 - Assessment and plan (1) COPD exacerbation Current Visit: Yes Status: Acute Assessment and plan: Patient continues to have SOB, and O2 was increased to 4L last night from home 3L. Patient's steroids went from IV 60 TID to PO 40 QD, will go back up on steroids as this was too quick of a drop. Jump in WBC today and clinical worsening could be due to quick drop in steroids or possibly new lung etiology. Remains afebrile, but has been tachy and elevated BP this AM. - restarted BiPAP at night - SpO2 goal is 88-92% - IV 40 BID, and taper further tomorrow - Levaquin 750 Day 4 of 7 (discussed with phamacist) - worsening sob, will reorder CXR. yesterdays showed no acute processes - continue duoneb support - wean off O2 NC if possible (currently on 4L) (2) HLD (hyperlipidemia) Current Visit: Yes Status: Chronic Assessment and plan: Chronic issue Qualifiers: Hyperlipidemia type: mixed hyperlipidemia Qualified Code(s): E78.2 - Mixed hyperlipidemia (3) Acute on chronic respiratory failure Current Visit: Yes Status: Acute Assessment and plan: see above Qualifiers: Respiratory failure complication: hypoxia Qualified Code(s): J96.21 - Acute and chronic respiratory failure with hypoxia (4) DM (diabetes mellitus), type 2 Current Visit: Yes Status: Chronic Assessment and plan: Patient's glucose level continues to be elevated. Expect better control once Steroids tapered. Qualifiers: Diabetes mellitus detention insulin use: with detention use Diabetes mellitus complication status: with hyperglycemia Qualified Code(s): E11.65 - Type 2 diabetes mellitus with hyperglycemia; Z79.4 - termite inspector (current) 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; Z79.4 - termite inspector (current) 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; Z79.4 - [facility] (current ) 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; Z79.4 - termite inspector (current) 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 (5) JORGE (obstructive sleep apnea) Current Visit: Yes Status: Chronic Assessment and plan: restarting BiPAP at night (6) Chronic pain Current Visit: Yes Status: Chronic Assessment and plan: Chronic issue Qualifiers: Chronic pain type: other chronic pain Qualified Code(s): G89.29 - Other chronic pain (7) Accelerated hypertension Current Visit: Yes Status: Chronic Assessment and plan: Patient has known poorly controlled HTN. Last BP was 171/99, baseline is most likely SBP 140-145. - Clonidine D/C'ed - continue losaratan/HCTZ 50/12.5, amlodopine 10 qd, hydralazine 25 TID, continue lasix PRN - closely monitor Vitals (8) DVT prophylaxis Current Visit: Yes Status: Acute Assessment and plan: SQ Hep (9) Chest pain Current Visit: Yes Status: Acute Assessment and plan: chronic chest pain. restarted last night. Due to tachycardia, ordered and EKG. I personally read EKG, it showed sinus tachycardia with no suspicion for Ischemia. Will continue to follow. - CXR ordered - Trops ordered Qualifiers: Qualified Code(s): R07.9 - Chest pain, unspecified - Time Spent With Patient Total time spent is greater than 50% in coordination of care (as documented) at patient's floor/unit and/or counseling patient: - Subjective Interval history: Ms Ren is a 57 yo F here for uncontrolled HTN and COPD exacerbation. Patient reports feeling like her heart is beating fast and chest pain. She states the chest pain is below her left chest bone, and describes it as a heaviness. Pain is constant and it's more "nagging" than anything else. Patient has had chest pain like this in the past, she denies every having an UT. Patient overnight had more difficulty breathing, and she said the doctor last night upped her O2. She is normally on 3L at home. Patient states her last bowel movement was on Tuesday, but denies abdominal pain. She denies any change in her urine patterns , confusion, nausea, vomiting, fever, or chills. - Constitutional Vitals: Temp Pulse Resp BP Pulse Ox 98 F 100 16 171/99 98 06/08/17 07:26 06/08/17 07:26 06/08/17 07:50 06/08/17 07:26 06/08/17 07:50 General appearance: Present: A&O X 3, pleasant, obese, answers questions appropriately - ENT ENT exam: Present: mucous membranes dry - Neck Neck exam general surgery: Present: supple - Respiratory Respiratory exam: Present: prolonged expiratory phase, wheezes (expiratory wheezes) - Cardiovascular Cardiovascular exam: Present: tachycardia - GI/Abdominal GI/Abdominal exam: Present: normal bowel sounds, soft. Absent: distended, rebound, rigid Internal Medicine: Result - Labs CBC & Chem 7: 06/08/17 04:55 06/08/17 04:55 Labs: Short CBC 06/08/17 Range/Units 04:55 WBC 14.1 H (4.3-11.1) K/mcL Hgb 11.3 L (11.5-15.4) g/dL Hct 37.2 (35.3-44.9) % Plt Count 388 (140-400) K/mcL Neutrophils # 9.2 H (1.6-8.9) K/mcL BMP 06/08/17 04:55 Sodium 137 Potassium 3.4 L Chloride 103 Carbon Dioxide 26 BUN 22 H Creatinine 0.58 L Glucose 226 H Calcium 8.6 - ABG Interpretation ABG results: ABG ABG pH 7.40 pH Units (7.32-7.45) 06/03/17 00:53 ABG pCO2 35 mmHg (35-45) 06/03/17 00:53 ABG pO2 162 mmHg (85-104) H 06/03/17 00:53 ABG O2 Saturation 100 % (95-98) H 06/03/17 00:53 PT/INR, D-dimer PT 12.7 Seconds (9.4-12.1) H 06/04/17 03:56 - Impressions Impressions Chest X-Ray 06/07/17 13:46 IMPRESSION: No acute cardiopulmonary disease D/ / Darnell Cabrera MD / Darnell Cabrera MD Interpreting Provider: Darnell Cabrera MD Consult Discharge Plan - Plan Referrals: Domitila Lau MD [Primary Care Provider] - <Tony Pierce - Last Filed: 06/08/17 15:21> Date of Encounter: 06/08/17 - Assessment and plan (1) HLD (hyperlipidemia) Current Visit: Yes Status: Chronic Qualifiers: Hyperlipidemia type: mixed hyperlipidemia Qualified Code(s): E78.2 - Mixed hyperlipidemia (2) Acute on chronic respiratory failure Current Visit: Yes Status: Acute (3) DM (diabetes mellitus), type 2 Current Visit: Yes Status: Chronic Qualifiers: Diabetes mellitus detention insulin use: with petroleum terminal plant operator use Diabetes mellitus complication status: with hyperglycemia Qualified Code(s): E11.65 - Type 2 diabetes mellitus with hyperglycemia; Z79.4 - termite inspector (current) 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; Z79.4 - [facility]DC (current) 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; Z79.4 - termite inspector (current ) 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; Z79.4 - [facility] (current) 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 (4) JORGE (obstructive sleep apnea) Current Visit: Yes Status: Chronic (5) Chronic pain Current Visit: Yes Status: Chronic Qualifiers: Chronic pain type: other chronic pain Qualified Code(s): G89.29 - Other chronic pain (6) COPD exacerbation Current Visit: Yes Status: Acute (7) Accelerated hypertension Current Visit: Yes Status: Chronic (8) DVT prophylaxis Current Visit: Yes Status: Acute (9) Chest pain Current Visit: Yes Status: Acute Qualifiers: Qualified Code(s): R07.9 - Chest pain, unspecified - Time Spent With Patient Total time spent is greater than 50% in coordination of care (as documented) at patient's floor/unit and/or counseling patient: - Constitutional Vitals: Temp Pulse Resp BP Pulse Ox 98 F 107 14 109/63 95 06/08/17 11:25 06/08/17 11:25 06/08/17 11:25 06/08/17 11:25 06/08/17 11:25 Internal Medicine: Result - Labs CBC & Chem 7: 06/08/17 04:55 06/08/17 04:55 Labs: Short CBC 06/08/17 Range/Units 04:55 WBC 14.1 H (4.3-11.1) K/mcL Hgb 11.3 L (11.5-15.4) g/dL Hct 37.2 (35.3-44.9) % Plt Count 388 (140-400) K/mcL Neutrophils # 9.2 H (1.6-8.9) K/mcL BMP 06/08/17 04:55 Sodium 137 Potassium 3.4 L Chloride 103 Carbon Dioxide 26 BUN 22 H Creatinine 0.58 L Glucose 226 H Calcium 8.6 Cardiac Enzymes 06/08/17 Range/Units 13:52 Troponin I < 0.03 (< 0.04) ng/mL - ABG Interpretation ABG results: ABG ABG pH 7.40 pH Units (7.32-7.45) 06/03/17 00:53 ABG pCO2 35 mmHg (35-45) 06/03/17 00:53 ABG pO2 162 mmHg (85-104) H 06/03/17 00:53 ABG O2 Saturation 100 % (95-98) H 06/03/17 00:53 PT/INR, D-dimer PT 12.7 Seconds (9.4-12.1) H 06/04/17 03:56 - Impressions Impressions Chest X-Ray 06/08/17 09:15 IMPRESSION: 1. No active pulmonary disease. D/ / Jordan Blue MD / Jordan Blue MD Interpreting Provider: Jordan Blue MD - Attending Attestation I performed an independent interview and examine this patient. I agree with the findings, assessment, and plan of Dr. Flores, internal medicine senior internal auditor. IMP is reflected in his note. Patient's blood pressure control is improved. We are aiming only for gradual control acutely. Patient continues to have chest pain. This is not a new issue is she has had in the past. She has a stress test planned for next week, we will attempt to do tomorrow N sugars remain markedly elevated needed likely due to steroids. Will taper steroids fairly quickly. We will need to adjust insulin accordingly. All else as outlined above. I reviewed her Wells score, PE or DVT are much less likely. Will check a d-dimer. If this is elevated, we will consider CTA to rule out PE.
[2017-06-08] MEDS ORDERED: Isovue-370 500 ML INFUS..BTL IV ONE (19:35)
[2017-06-08] MEDS: MethylPREDNISolone 40 MG/ML VIAL IVP SCH (22:20)
[2017-06-08] MEDS: Insulin DETEMIR 100 UNIT/ML X5UNITS SQ SCH (22:21)
[2017-06-09] MEDS: Levalbuterol Neb 1.25 MG/3 ML IH SCH ×7 (00:05→23:43)
[2017-06-09] MEDS: hydrALAZINE 25 MG TABLET PO SCH ×4 (01:28→23:09)
[2017-06-09] MEDS: *HR* OxyCODONE Immed Rel 5 MG TABLET PO PRN ×5 (01:28→20:20)
[2017-06-09] MEDS ORDERED: *HR* Metoprolol 5 MG/5 ML VIAL IVP ONE (04:29)
[2017-06-09] MEDS ORDERED: niCARdipine 40 MG/200 ML MLS IVC SCH (04:30)
[2017-06-09] MEDS ORDERED: cloNIDine HCl 0.1 MG TABLET PO ONE (04:58)
--- NOTE | 2017-06-09 05:15 | Event Note ---
Date of Encounter: 06/09/17 Time of Encounter: 05:09 At approximately 5AM, I was alerted to patient's bedside as patient was complaining of chest pain, left arm pain, and headache. Patient reported her " BP felt really high." Blood pressure was 220/130 and heart rate was 130. EKG was ordered and demonstrated a HR of 135 BPM with sinus tachycardia. No evidence of acute ischemia. It was compared to previous EKG on 06-08-2017 and showed no new ischemic changes. Troponins were ordered. A one time dose of metoprolol 5mg IV was given. After approximately 30 minutes, BP dropped to 200/ 110 and HR to 100. Upon review of medical chart, patient's clonidine was discontinued yesterday morning with no taper. She had been receiving 0.3mg clonidine QID previously. A one time dose of 0.3 mg Clonidine was then given to treat suspected rebound hypertension secondary to recent discontinuation of clonidine. Upon re-evaluation of patient 30 minutes later, she states she felt much improved.
[2017-06-09 05:25] LABS: Hematocrit 38.3 % (35.3-44.9); Hemoglobin 11.9 g/dL (11.5-15.4); Mean Corpuscular HGB Conc 31.1 g/dL (31.6-35.5); Mean Corpuscular Hemoglobin 26.2 pg (28.0-33.3); Mean Corpuscular Volume 84.4 fL (83.0-100.0); Mean Platelet Volume 10.3 fL (9.4-12.4); Platelet Count 506 K/mcL (140-400); Red Blood Count 4.54 M/mcL (3.82-4.97); Red Cell Distribution Width 17.8 % (11.5-14.5)
[2017-06-09 05:41] LABS: Alanine Aminotransferase 28 Units/L (7-52); Albumin 4.3 g/dL (3.5-5.7); Alkaline Phosphatase 71 Units/L (34-104); Aspartate Amino Transferase 22 Units/L (13-39); BUN/Creatinine Ratio 34 (6-26); Bilirubin,Total 0.2 mg/dL (0.3-1.0); Blood Urea Nitrogen 26 mg/dL (6-20); Calcium 9.1 mg/dL (8.6-10.3); Carbon Dioxide 28 mEq/L (23-29); Chloride 101 mEq/L (98-107); Globulin 2.2 g/dL (2.4-3.5); Glucose 168 mg/dL (70-105); Magnesium 1.7 mg/dL (1.6-2.6); Osmolality,Calculated 293 (280-300); Potassium 4.1 mEq/L (3.5-5.1); Sodium 137 mEq/L (136-145); Total Protein 6.5 g/dL (6.4-8.9); Troponin I < 0.03 ng/mL (< 0.04); eGFR For African Americans > 60 (> 60); eGFR For Non-African Americans > 60 (> 60)
[2017-06-09 05:47] LABS: Hypersegmented Neutrophils Present (Not Present); Lymphocytes # 2.6 K/mcL (0.6-4.6); Monocytes # 0.3 K/mcL (0.0-1.3); Neutrophils # 13.4 K/mcL (1.6-8.9)
[2017-06-09 05:48] LABS: Anisocytosis 1+ (Not Present)
[2017-06-09 05:49] LABS: Platelet Estimate Increased (Normal)
[2017-06-09] MEDS: MethylPREDNISolone 40 MG/ML VIAL IVP SCH (07:00)
[2017-06-09] MEDS: *HR* Heparin 5,000 UNIT/ML VIAL SQ SCH ×2 (07:00→16:38)
--- NOTE | 2017-06-09 08:17 | Internal Med Progress Note ---
<Tony Pierce - Last Filed: 06/09/17 14:06> Date of Encounter: 06/09/17 - Assessment and plan (1) HLD (hyperlipidemia) Current Visit: Yes Status: Chronic Qualifiers: Hyperlipidemia type: mixed hyperlipidemia Qualified Code(s): E78.2 - Mixed hyperlipidemia (2) Acute on chronic respiratory failure Current Visit: Yes Status: Acute Qualifiers: Respiratory failure complication: hypoxia Qualified Code(s): J96.21 - Acute and chronic respiratory failure with hypoxia (3) DM (diabetes mellitus), type 2 Current Visit: Yes Status: Chronic Qualifiers: Diabetes mellitus chipper feeder insulin use: with shelter use Diabetes mellitus complication status: with hyperglycemia Qualified Code(s): E11.65 - Type 2 diabetes mellitus with hyperglycemia; Z79.4 - assisted (current) 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; Z79.4 - manager transplant (current) 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; Z79.4 - assisted (current ) 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; Z79.4 - manager transplant (current) 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 (4) JORGE (obstructive sleep apnea) Current Visit: Yes Status: Chronic (5) Chronic pain Current Visit: Yes Status: Chronic Qualifiers: Chronic pain type: other chronic pain Qualified Code(s): G89.29 - Other chronic pain (6) COPD exacerbation Current Visit: Yes Status: Acute (7) Accelerated hypertension Current Visit: Yes Status: Chronic (8) DVT prophylaxis Current Visit: Yes Status: Acute (9) Chest pain Current Visit: Yes Status: Acute - Time Spent With Patient Total time spent is greater than 50% in coordination of care (as documented) at patient's floor/unit and/or counseling patient: - Constitutional Vitals: Temp Pulse Resp BP Pulse Ox 97.8 F 121 16 176/135 96 06/09/17 07:00 06/09/17 11:00 06/09/17 11:05 06/09/17 11:00 06/09/17 11:05 Internal Medicine: Result - Labs CBC & Chem 7: 06/09/17 04:00 06/09/17 04:24 Labs: Short CBC 06/09/17 Range/Units 04:00 WBC 16.3 H (4.3-11.1) K/mcL Hgb 11.9 (11.5-15.4) g/dL Hct 38.3 (35.3-44.9) % Plt Count 506 H (140-400) K/mcL Neutrophils # 13.4 H (1.6-8.9) K/mcL BMP 06/09/17 04:24 Sodium 137 Potassium 4.1 Chloride 101 Carbon Dioxide 28 BUN 26 H Creatinine 0.76 Glucose 168 H Calcium 9.1 Cardiac Enzymes 06/08/17 06/09/17 Range/Units 13:52 04:24 Troponin I < 0.03 < 0.03 (< 0.04) ng/mL Liver Function 06/09/17 Range/Units 04:24 Total Bilirubin 0.2 L (0.3-1.0) mg/dL AST 22 (13-39) Units/L ALT 28 (7-52) Units/L Alkaline Phosphatase 71 (34-104) Units/L Albumin 4.3 (3.5-5.7) g/dL - ABG Interpretation ABG results: ABG ABG pH 7.40 pH Units (7.32-7.45) 06/03/17 00:53 ABG pCO2 35 mmHg (35-45) 06/03/17 00:53 ABG pO2 162 mmHg (85-104) H 06/03/17 00:53 ABG O2 Saturation 100 % (95-98) H 06/03/17 00:53 PT/INR, D-dimer PT 12.7 Seconds (9.4-12.1) H 06/04/17 03:56 D-Dimer 602 ng/mLFEU (0-500) H 06/08/17 15:37 - Impressions Impressions Chest CTA 06/09/17 19:35 IMPRESSION: No evidence of pulmonary embolism or acute pulmonary abnormality. D/ / Ruddy Vernon MD / Ruddy Vernon MD Interpreting Provider: Ruddy Vernon MD Consult Discharge Plan - Plan Referrals: Domitila Lau MD [Primary Care Provider] - - Attending Attestation I performed an independent interview and exam of this patient. I agree with the findings, assessment, and plan of Dr. Flores, internal medicine spring intern. Patient continues to improve. Blood pressure control is much better on multiple agents. She will continue with Levaquin for a total of seven-day course for suspected pneumonia. She continues on steroid taper for COPD exacerbation. Continue BiPAP at night. Patient's chest pain is resolving. The case was discussed with cardiology, and a stress test will be performed next week. We did perform one during this admission due to her respiratory symptoms. CT of her thorax came back negative for acute process. All else as outlined above. Increase activity today. Patient did have some pain in her left groin of unclear etiology. Exam was unrevealing. She does have a history of chronic hip pain and we will check a hip x-ray. <Darin Flores - Last Filed: 06/09/17 14:47> Date of Encounter: 06/09/17 Time of Encounter: 08:14 - Assessment and plan (1) COPD exacerbation Current Visit: Yes Status: Acute Assessment and plan: Patient continues to have SOB, and O2 was increased to 4L last night from home 3L. Patient's steroids went from IV 60 TID to PO 40 QD, will go back up on steroids as this was too quick of a drop. Jump in WBC today and clinical worsening could be due to steroids, will continue to follow. Remains afebrile, but has been tachy and elevated BP this AM. - continue Bipap support at night if needed - SpO2 goal is 88-92%; currently on home 3L O2 - taper to PO 40 BID, and taper further tomorrow - Levaquin 750 Day 5 of 7 (discussed with phamacist) - CXR reordered yesterday without finding acute process - continue duoneb support - plan on d/c tomorrow. (2) HLD (hyperlipidemia) Current Visit: Yes Status: Chronic Assessment and plan: Chronic issue Qualifiers: Hyperlipidemia type: mixed hyperlipidemia Qualified Code(s): E78.2 - Mixed hyperlipidemia (3) Acute on chronic respiratory failure Current Visit: Yes Status: Acute Assessment and plan: see above Qualifiers: Respiratory failure complication: hypoxia Qualified Code(s): J96.21 - Acute and chronic respiratory failure with hypoxia (4) DM (diabetes mellitus), type 2 Current Visit: Yes Status: Chronic Assessment and plan: Patient's glucose level continues to be elevated. Expect better control once Steroids tapered. Qualifiers: Diabetes mellitus shelter insulin use: with shelter use Diabetes mellitus complication status: with hyperglycemia Qualified Code(s): E11.65 - Type 2 diabetes mellitus with hyperglycemia; Z79.4 - manager transplant (current) 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; Z79.4 - manager transplant (current) 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; Z79.4 - assisted (current ) 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; Z79.4 - assisted (current) 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 (5) JORGE (obstructive sleep apnea) Current Visit: Yes Status: Chronic Assessment and plan: restarting BiPAP at night (6) Chronic pain Current Visit: Yes Status: Chronic Assessment and plan: Chronic issue Qualifiers: Chronic pain type: other chronic pain Qualified Code(s): G89.29 - Other chronic pain (7) Accelerated hypertension Current Visit: Yes Status: Chronic Assessment and plan: Patient has known poorly controlled HTN. Last BP was 171/99, baseline is most likely [id number]'s - continue losaratan/HCTZ 50/12.5, amlodopine 10 qd, hydralazine 25 TID, clonidine 0.3 QID, continue lasix PRN - closely monitor Vitals (8) DVT prophylaxis Current Visit: Yes Status: Acute Assessment and plan: SQ Hep (9) Chest pain Current Visit: Yes Status: Acute Assessment and plan: most likely chronic chest pain. Patient has scheduled Stress test and holter monitoring next week. Due to tachycardia, ordered and EKG on 06/08/17. I personally reviewed EKG, it showed sinus tachycardia with no suspicion for Ischemia. D-dimer was elevated at 602, further workup for PE was ordered. CTA was negative on 06/09/17. Chest pain has mostly resolved - discussed getting stress during hospitalization with cardiology. Will not order stress due to continued wheezing. Recommended to patient to keep follow up for next week. (10) Hip pain Current Visit: Yes Status: Acute Assessment and plan: left hip pain. patient has had pain in the left hip previously, and has been worked up in January with no significant findings. - hip Xr - PT eval - Time Spent With Patient Total time spent is greater than 50% in coordination of care (as documented) at patient's floor/unit and/or counseling patient: - Subjective Interval history: Ms Ren is a 57 yo F here for uncontrolled HTN and COPD exacerbation. Patient is seen and examined. Patient had an event at 5 am this morning where her heart rate and bp went elevated, her clonidine was stopped yesterday, the night team restarted it, and patient's vitables stabilized after. Patient reports that her SBP at home at it's lowest is 160. Patient reports that her chest pain is feeling better. Patient also reports that her breathing is doing better today. She denies any change in her urine patterns, confusion, nausea, vomiting, fever, or chills. - Constitutional Vitals: Temp Pulse Resp BP Pulse Ox 97.8 F 106 16 152/86 98 06/09/17 07:00 06/09/17 07:00 06/09/17 07:36 06/09/17 07:00 06/09/17 07:36 General appearance: Present: A&O X 3, pleasant, obese, answers questions appropriately - Head Head exam: Present: atraumatic, normocephalic - ENT ENT exam: Present: mucous membranes moist - Respiratory Respiratory exam: Present: prolonged expiratory phase, wheezes - Cardiovascular Cardiovascular exam: Present: RRR - Extremities Exam Extremities exam: Absent: pedal edema Internal Medicine: Result - Labs CBC & Chem 7: 06/09/17 04:00 06/09/17 04:24 Labs: Short CBC 06/09/17 Range/Units 04:00 WBC 16.3 H (4.3-11.1) K/mcL Hgb 11.9 (11.5-15.4) g/dL Hct 38.3 (35.3-44.9) % Plt Count 506 H (140-400) K/mcL Neutrophils # 13.4 H (1.6-8.9) K/mcL BMP 06/09/17 04:24 Sodium 137 Potassium 4.1 Chloride 101 Carbon Dioxide 28 BUN 26 H Creatinine 0.76 Glucose 168 H Calcium 9.1 Cardiac Enzymes 06/08/17 06/09/17 Range/Units 13:52 04:24 Troponin I < 0.03 < 0.03 (< 0.04) ng/mL Liver Function 06/09/17 Range/Units 04:24 Total Bilirubin 0.2 L (0.3-1.0) mg/dL AST 22 (13-39) Units/L ALT 28 (7-52) Units/L Alkaline Phosphatase 71 (34-104) Units/L Albumin 4.3 (3.5-5.7) g/dL - ABG Interpretation ABG results: ABG ABG pH 7.40 pH Units (7.32-7.45) 06/03/17 00:53 ABG pCO2 35 mmHg (35-45) 06/03/17 00:53 ABG pO2 162 mmHg (85-104) H 06/03/17 00:53 ABG O2 Saturation 100 % (95-98) H 06/03/17 00:53 PT/INR, D-dimer PT 12.7 Seconds (9.4-12.1) H 06/04/17 03:56 D-Dimer 602 ng/mLFEU (0-500) H 06/08/17 15:37 - Impressions Impressions Chest X-Ray 06/08/17 09:15 IMPRESSION: 1. No active pulmonary disease. D/ / Jordan Blue MD / Jordan Blue MD Interpreting Provider: Jordan Blue MD Chest CTA 06/09/17 19:35
[2017-06-09] MEDS: amLODIPine 5 MG TABLET PO SCH (08:29)
[2017-06-09] MEDS: Metoprolol XL (24 HR) Succ 25 MG TAB.ER.24H PO SCH (08:30)
[2017-06-09] MEDS: cloNIDine HCl 0.1 MG TABLET PO SCH ×3 (08:30→20:13)
[2017-06-09] MEDS: Aspirin Enteric Coated 81 MG Tablet PO SCH (08:30)
[2017-06-09] MEDS: levoFLOXacin 750 MG TABLET PO SCH (08:30)
[2017-06-09] MEDS: Losartan/HCTZ 50-12.5 TABLET PO SCH (08:30)
[2017-06-09] MEDS: Famotidine 20 MG TABLET PO SCH (08:31)
[2017-06-09] MEDS: Insulin LISPRO 300 UNITS/3 ML VIAL SQ SCH ×4 (08:35→20:14)
[2017-06-09] MEDS ORDERED: Furosemide 40 MG/4 ML VIAL IVP ONE (15:36)
[2017-06-09] MEDS: predniSONE 20 MG TABLET PO SCH (16:38)
[2017-06-09] MEDS: Ondansetron 4 MG/2 ML VIAL IVP PRN (16:48)
[2017-06-09] MEDS: ALPRAZolam 0.25 MG TABLET PO PRN ×2 (17:49→23:09)
[2017-06-09] MEDS: Insulin DETEMIR 100 UNIT/ML X5UNITS SQ SCH (20:14)
[2017-06-10] MEDS: *HR* OxyCODONE Immed Rel 5 MG TABLET PO PRN ×3 (00:31→09:07)
[2017-06-10] MEDS: cloNIDine HCl 0.1 MG TABLET PO SCH ×2 (00:33→09:07)
[2017-06-10] MEDS: Levalbuterol Neb 1.25 MG/3 ML IH SCH ×3 (03:27→07:49)
[2017-06-10] MEDS: *HR* Heparin 5,000 UNIT/ML VIAL SQ SCH (04:56)
[2017-06-10 07:47] VITALS: BP 131/84
[2017-06-10 08:10] LABS: Alanine Aminotransferase 21 Units/L (7-52); Albumin 3.7 g/dL (3.5-5.7); Albumin/Globulin Ratio 1.9 (1.1-2.2); Alkaline Phosphatase 68 Units/L (34-104); Aspartate Amino Transferase 8 Units/L (13-39); BUN/Creatinine Ratio 39 (6-26); Bilirubin,Total 0.2 mg/dL (0.3-1.0); Blood Urea Nitrogen 33 mg/dL (6-20); Calcium 8.7 mg/dL (8.6-10.3); Carbon Dioxide 28 mEq/L (23-29); Chloride 99 mEq/L (98-107); Glucose 334 mg/dL (70-105); Osmolality,Calculated 302 (280-300); Potassium 3.9 mEq/L (3.5-5.1); Sodium 136 mEq/L (136-145); Total Protein 5.7 g/dL (6.4-8.9); eGFR For African Americans > 60 (> 60); eGFR For Non-African Americans > 60 (> 60)
[2017-06-10 08:20] LABS: Basophils # 0.1 K/mcL (0.0-0.2); Basophils % 0.6 %; Hematocrit 34.8 % (35.3-44.9); Hemoglobin 10.7 g/dL (11.5-15.4); Immature Granulocytes % 3.6 % (0-4); Lymphocytes # 2.1 K/mcL (0.6-4.6); Lymphocytes % 16.5 %; Mean Corpuscular HGB Conc 30.7 g/dL (31.6-35.5); Mean Corpuscular Hemoglobin 26.5 pg (28.0-33.3); Mean Corpuscular Volume 86.1 fL (83.0-100.0); Mean Platelet Volume 10.6 fL (9.4-12.4); Monocytes # 0.8 K/mcL (0.0-1.3); Monocytes % 6.5 %; Neutrophils # 9.4 K/mcL (1.6-8.9); Nucleated Red Blood Cells 0.3 /100 WBC (0); Platelet Count 369 K/mcL (140-400); Red Blood Count 4.04 M/mcL (3.82-4.97); Red Cell Distribution Width 17.8 % (11.5-14.5); Segmented Neutrophils % 72.8 %
--- NOTE | 2017-06-10 08:28 | Electrocardiograph Report ---
[place] [address] Test Date: 2017-06-02 Pat Name: Nora Ren Department: 103 Room: 2N2 Gender: F Back Tender Fourdrinier: ROSEMARY : 1960 Requested By: Nikunj Jeffers Order Number: [id number] Reading MD: Live Crooks Measurements Intervals [place] Rate: 143 P: 51 ID: [id number] QRS: 65 QRSD: 76 T: 22 QT: 272 QTc: 355 Interpretive Statements SINUS TACHYCARDIA Electronically Signed On 06-10-2017 8:27:29 EDT by Live Crooks
[2017-06-10] MEDS: amLODIPine 5 MG TABLET PO SCH (09:06)
[2017-06-10] MEDS: hydrALAZINE 25 MG TABLET PO SCH (09:06)
[2017-06-10] MEDS: Famotidine 20 MG TABLET PO SCH (09:06)
[2017-06-10] MEDS: levoFLOXacin 750 MG TABLET PO SCH (09:06)
[2017-06-10] MEDS: Metoprolol XL (24 HR) Succ 25 MG TAB.ER.24H PO SCH (09:06)
[2017-06-10] MEDS: Aspirin Enteric Coated 81 MG Tablet PO SCH (09:07)
[2017-06-10] MEDS: predniSONE 20 MG TABLET PO SCH (09:07)
[2017-06-10] MEDS: Losartan/HCTZ 50-12.5 TABLET PO SCH (09:07)
[2017-06-10] MEDS: Insulin LISPRO 300 UNITS/3 ML VIAL SQ SCH (09:10)
--- NOTE | 2017-06-10 09:30 | Discharge Summary ---
<Darin Flores - Last Filed: 06/10/17 14:11> Orders not resulted at time of discharge: Pending orders 06/03/17 11:22 Streptococcus A Rapid Test [RM] Stat 06/11/17 04:00 CBC [Complete Blood Count] [HEME] AM 0400 CMP [Comprehensive Metabolic Panel] AM 0400 06/12/17 04:00 CBC [Complete Blood Count] [HEME] AM 0400 CMP [Comprehensive Metabolic Panel] [place] [address]006/13/17 04:00 CBC [Complete Blood Count] [HEME] AM 0400 CMP [Comprehensive Metabolic Panel] AM 0400 06/14/17 04:00 CBC [Complete Blood Count] [HEME] AM 0400 CMP [Comprehensive Metabolic Panel] AM 040 Date of Encounter: 06/10/17 Time of Encounter: 09:28 - Discharge Diagnosis (1) COPD exacerbation Priority: Primary Status: Acute (2) HLD (hyperlipidemia) Priority: Secondary Status: Chronic Qualifiers: Hyperlipidemia type: mixed hyperlipidemia Qualified Code(s): E78.2 - Mixed hyperlipidemia (3) Acute on chronic respiratory failure Priority: Secondary Status: Acute Qualifiers: Respiratory failure complication: hypoxia Qualified Code(s): J96.21 - Acute and chronic respiratory failure with hypoxia (4) DM (diabetes mellitus), type 2 Priority: Secondary Status: Chronic Qualifiers: Diabetes mellitus quality control assistant insulin use: with quality control assistant use Diabetes mellitus complication status: with hyperglycemia Qualified Code(s): E11.65 - Type 2 diabetes mellitus with hyperglycemia; Z79.4 - terminal clerk (current) 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; Z79.4 - alf (current) 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; Z79.4 - terminal clerk (current ) 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; Z79.4 - terminal clerk (current) 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 (5) JORGE (obstructive sleep apnea) Priority: Secondary Status: Chronic (6) Chronic pain Priority: Secondary Status: Chronic Qualifiers: Chronic pain type: other chronic pain Qualified Code(s): G89.29 - Other chronic pain (7) Accelerated hypertension Priority: Secondary Status: Chronic (8) DVT prophylaxis Priority: Secondary Status: Acute (9) Chest pain Priority: Secondary Status: Acute Qualifiers: Qualified Code(s): R07.9 - Chest pain, unspecified (10) Hip pain Priority: Secondary Status: Acute Qualifiers: Qualified Code(s): M25.559 - Pain in unspecified hip Hospital course: Ms. Ren is a 57 year old female presented with SOB and productive cough. In the ED patient was started on IV steroids, mucolytics, respiratory support including BiPAP, and prophylactic antibiotics with levaquin. Micro cameback positive for stenotrophomonas, and GBs. CXR showed no acute abnormalities. Patient breathing improved, and was treated with 6 days of levaquin and is discharged with 1 day of Levaquin 750 for a total of 7 days of abx treatment. Patient is also discharged with taper dose of steroids as she is high risk. Patient can additionally use mucinex at home, duonebs, and recommended to encourage using BiPAP at home Patient also had complaints of exacerbation of chest pain and left groin pain. Patient was further worked up for PE and DVT. Patient did have a D-Dimer of 602. CTA, doppler up to hip, EKG, hip Xr, CXR all which showed no acute processes or occlusions. Patient also had elevated BP when admitted. PAtient has known hx of HTN w/ SBP 160-180 at home. acute HTN was attributed to steroids, and current illness. Hydralazine was given in addition to home BP medications. BP remained controlled. Discharge discussed with: patient Time spent discussing smoking cessation with patient: more than 10 minutes - Time Spent with Patient Total time spent providing and/or coordinating discharge services: Greater than 30 minutes - Discharge Medications Prescriptions: levoFLOXacin [Levaquin] 750 mg PO DAILY 1 Days #1 tablet predniSONE [PredniSONE] 10 mg PO DAILY 12 Days #30 tablet Home Medications: cloNIDine HCl [Clonidine HCl] 0.3 mg PO QID 05/16/16 [History] Oxygen 3 l IH AD 07/19/16 [History] Insulin Glargine [Lantus] 38 unit SQ HS 08/10/16 [History] amLODIPine [Norvasc] 5 mg PO HS #30 tab 09/30/16 [Rx] Albuterol Sulfate [Ventolin Hfa] 2 puff IH Q4H PRN #1 inh 10/15/16 [Rx] Pantoprazole Sodium [Protonix] 40 mg PO BIDWM #60 tablet. 11/10/16 [Rx] Ipratropium/Albuterol Neb [Duoneb] 3 ml IH Q4HR 11/20/16 [History] Ranitidine HCl [Zantac] 150 mg PO DAILY 11/20/16 [History] Aspirin [Lo-Dose Aspirin EC] 81 mg PO DAILY 01/12/17 [History] Losartan/Hydrochlorothiazide [Losartan-Hctz 100-25 mg Tab] 1 tab PO DAILY [History] Furosemide [Lasix] 40 mg PO DAILY PRN 01/31/17 [History] Insulin LISPRO [HumaLOG] 0 units SQ TID 05/02/17 [History] Nitroglycerin [Nitrostat] 0.4 mg PO Q5M 06/03/17 [History] Ondansetron ODT [Zofran ODT] 1 tab PO Q6HR PRN 06/03/17 [History] Potassium Chloride [Klor-Con 10] 10 meq PO DAILY 06/03/17 [History] Insulin LISPRO [HumaLOG] 0 units SQ TID 06/04/17 [History] levoFLOXacin [Levaquin] 750 mg PO DAILY 1 Days #1 tablet 06/10/17 [Rx] predniSONE [PredniSONE] 10 mg PO DAILY 12 Days #30 tablet 06/10/17 [Rx] Allergies/Adverse Reactions: 3 Allergy/AdvReac Type Severity Reaction Status Date / Time NSAIDS (Non-Steroidal Allergy Unknown See Verified 06/03/17 07:04 Anti-Inflamma Comments Penicillins Allergy Unknown Hives Verified 06/03/17 07:04 lisinopril AdvReac Cough Verified 06/03/17 07:04 lorazepam [From Ativan] AdvReac Confusion Verified 06/03/17 07:04 tramadol AdvReac Nausea Verified 06/03/17 07:04 Date of admission: 06/03/17 11:01 Primary care physician: Domitila Lau MD Consults: 06/03/17 11:53 Consult to Sheetmetal Trades Worker [CONS] Routine Reason for SW Consult: has home oxygen 06/03/17 20:41 Consult to Pulmonology [CONS] Routine Consulting Provider: Pulm Crit Care & Sleep Gloria Reason for Consult: COPD exacerbation, respiratory failure Call Completed: Yes 06/09/17 11:20 PT [Consult to Physical Therapy] [CONS] Routine Comment: Evaluate, develop and implement POC Reason for Consult: Left hip pain Does patient have active BEDREST order?: No Is patient medically & hemodynamically stable?: Yes Patient assessed for mobility or mobilized this visit?: No Discharging clinician: Darin Flores Anticipated date of discharge: 06/10/17 - Constitutional Vitals: Temp Pulse Resp BP Pulse Ox 98.2 F 102 16 131/84 99 06/10/17 07:43 06/10/17 07:43 06/10/17 07:49 06/10/17 07:43 06/10/17 07:49 General appearance: Present: A&O X 3, pleasant, obese, answers questions appropriately - Head Head exam: Present: atraumatic, normocephalic - ENT ENT exam: Present: mucous membranes moist - Respiratory Respiratory exam: Present: prolonged expiratory phase, wheezes - Cardiovascular Cardiovascular exam: Present: RRR - GI/Abdominal GI/Abdominal exam: Present: normal bowel sounds - Extremities Exam Extremities exam: Absent: pedal edema - Patient Status Disposition: Home, Self-Care Condition: Good Functional capacity at discharge: independent ambulation Overall status at discharge: patient is progressing back to baseline - Discharge Instructions Follow Up With: Domitila Lau MD [Primary Care Provider] - - Diet and Activity Activity: increase activity as tolerated, resume usual activities as tolerated, other (use BiPAP at night) Diet: diabetic diet <Tony Pierce - Last Filed: 06/10/17 14:56> Date of Encounter: 06/10/17 - Discharge Diagnosis (1) HLD (hyperlipidemia) Status: Chronic Qualifiers: Hyperlipidemia type: mixed hyperlipidemia Qualified Code(s): E78.2 - Mixed hyperlipidemia (2) Acute on chronic respiratory failure Status: Acute (3) DM (diabetes mellitus), type 2 Status: Chronic Qualifiers: Diabetes mellitus quality control assistant insulin use: with [facility] use Diabetes mellitus complication status: with hyperglycemia Qualified Code(s): E11.65 - Type 2 diabetes mellitus with hyperglycemia; Z79.4 - alf (current) 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; Z79.4 - alf (current) 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; Z79.4 - alf (current ) 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; Z79.4 - alf (current) 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 (4) JORGE (obstructive sleep apnea) Status: Chronic (5) Chronic pain Status: Chronic Qualifiers: Chronic pain type: other chronic pain Qualified Code(s): G89.29 - Other chronic pain (6) COPD exacerbation Status: Acute (7) Accelerated hypertension Status: Chronic (8) DVT prophylaxis Status: Acute (9) Chest pain Status: Acute Qualifiers: Qualified Code(s): R07.9 - Chest pain, unspecified (10) Hip pain Status: Acute Qualifiers: Qualified Code(s): M25.559 - Pain in unspecified hip Hospital course: Ms. Ren is a 57 year old female - Time Spent with Patient Total time spent providing and/or coordinating discharge services: Date of admission: 06/03/17 11:01 Primary care physician: Domitila Lau MD Consults: 06/03/17 11:53 Consult to Sheetmetal Trades Worker [CONS] Routine Reason for SW Consult: has home oxygen 06/03/17 20:41 Consult to Pulmonology [CONS] Routine Consulting Provider: Pulm Crit Care [facility] Sleep Gloria Reason for Consult: COPD exacerbation, respiratory failure Call Completed: Yes 06/09/17 11:20 PT [Consult to Physical Therapy] [CONS] Routine Comment: Evaluate, develop and implement POC Reason for Consult: Left hip pain Does patient have active BEDREST order?: No Is patient medically & hemodynamically stable?: Yes Patient assessed for mobility or mobilized this visit?: No - Constitutional Vitals: Temp Pulse Resp BP Pulse Ox 98.2 F 102 16 131/84 99 06/10/17 07:43 06/10/17 07:43 06/10/17 07:49 06/10/17 07:43 06/10/17 07:49 - Attending Attestation I performed an independent interview and examine this patient. I agree with the findings, assessment, and plan of Dr. Rousseau, internal medicine director international. My input and discussion is reflected within the discharge summary. Levaquin for 1 additional day as well as a steroid taper. She does have left groin pain with no evidence of fracture seen on x-ray. This is more of a chronic pain. I did recommend she consider seeing a pain specialist, she may benefit from potential injection therapy. She will follow up with her primary care provider next week. Patient is stable for discharge. 32 minutes spent on discharge and coordination of care.
--- NOTE | 2017-06-10 15:30 | Electrocardiograph Report ---
[place] [address] Test Date: 2017-06-09 Pat Name: Nora Ren Department: 111 Room: 2N2 Gender: F Customer Engineer: [id number] : 1960 Requested By: Latonia Oneal Order Number: [id number] Reading MD: Luba Rea Measurements Intervals [place] Rate: 135 P: 66 [place]: 134 QRS: 60 QRSD: 82 T: 29 QT: 271 QTc: 350 Interpretive Statements SINUS TACHYCARDIA Electronically Signed On 06-10-2017 15:29:32 EDT by Luba Rea
--- NOTE | 2017-06-10 15:44 | Electrocardiograph Report ---
[address] [address] Test Date: 2017-06-08 Pat Name: Nora Ren Department: 111 Room: 2NE22 Gender: F Pie Crimping Machine Operator: DAVID : 1960 Requested By: Darin Flores Order Number: [id number] Reading MD: Luba Rea Measurements Intervals [place] Rate: 109 P: 61 [place]: 143 QRS: 48 QRSD: 96 T: 32 QT: 334 QTc: 398 Interpretive Statements SINUS TACHYCARDIA Electronically Signed On 06-10-2017 15:42:38 EDT by Luba Rea
== END 2017-06-10 10:41 | disposition home or self-care (01) | DRG 140 ==
LOC: 2NENU 22:29 → EMEROO 22:29 → SUATTDRO 06-03 11:01 → 2NENU 06-03 11:32
PROVIDERS: ADMIT Internal Medicine; ATTEND Hospitalist

== ENCOUNTER 2017-06-30 12:52 | Inpatient (IN) ==
[2017-06-30] MEDS ORDERED: Ipratropium/Albuterol Neb 3 ML IH ONE (13:00)
[2017-06-30] MEDS ORDERED: methylPREDNISolone 125 MG/2 ML VIAL IVP ONE (13:13)
--- NOTE | 2017-06-30 13:25 | Emergency Department Note ---
Disposition Clinical Impression: COPD (chronic obstructive pulmonary disease) Qualifiers: COPD type: unspecified COPD Qualified Code(s): J44.9 - Chronic obstructive pulmonary disease, unspecified Disposition: Admitted As Inpatient Condition: Fair Referrals: Domitila Lau MD [Primary Care Provider] - Forms: ED Satisfaction Letter Time of Disposition: 14:35 SOB HPI - General Chief Complaint: ED Shortness of Breath/Dyspnea Stated Complaint: LESTER Time Seen by Provider: 06/30/17 12:57 Source: patient Mode of arrival: ambulatory Nursing Notes Reviewed: Yes Vital Signs Reviewed: Yes - History of Present Illness 1-year-old with a history COPD comes in with increasing shortness of breath. Patient has long history of COPD associated setting some exacerbation likely related to weather. It seems a lot of pollen in the air and that bothers her significantly. 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 Context: recent illness (Had pneumonia a couple weeks ago.) Severity: moderate Consistency/Duration: constant Improves with: nothing Worsens with: exertion Known history of: COPD Associated symptoms: Reports: denies other symptoms Treatment prior to arrival: none - Related Data Home Medications Medication Instructions Recorded Confirmed cloNIDine HCl [Clonidine HCl] 0.3 mg PO QID 05/16/16 06/03/17 Oxygen 3 l IH AD 07/19/16 06/03/17 Insulin Glargine [Lantus] 38 unit SQ HS 08/10/16 06/03/17 Ipratropium/Albuterol Neb [Duoneb] 3 ml IH Q4HR 11/20/16 06/03/17 Ranitidine HCl [Zantac] 150 mg PO DAILY 11/20/16 06/03/17 Aspirin [Lo-Dose Aspirin EC] 81 mg PO DAILY 01/12/17 06/03/17 Losartan/Hydrochlorothiazide 1 tab PO DAILY 01/16/17 06/03/17 [Losartan-Hctz 100-25 mg Tab] Furosemide [Lasix] 40 mg PO DAILY PRN 01/31/17 06/03/17 Insulin LISPRO [HumaLOG] 0 units SQ TID 05/02/17 06/03/17 Nitroglycerin [Nitrostat] 0.4 mg PO Q5M 06/03/17 06/03/17 Ondansetron ODT [Zofran ODT] 1 tab PO Q6HR PRN 06/03/17 06/03/17 Potassium Chloride [Klor-Con 10] 10 meq PO DAILY 06/03/17 06/03/17 Insulin LISPRO [HumaLOG] 0 units SQ TID 06/04/17 06/04/17 Previous Rx's Medication Instructions Recorded amLODIPine [Norvasc] 5 mg PO HS #30 tab 09/30/16 Albuterol Sulfate [Ventolin Hfa] 2 puff IH Q4H PRN #1 inh 10/15/16 Pantoprazole Sodium [Protonix] 40 mg PO BIDWM #60 tablet. 11/10/16 levoFLOXacin [Levaquin] 750 mg PO DAILY 1 Days #1 tablet 06/10/17 predniSONE [PredniSONE] 10 mg PO DAILY 12 Days #30 tablet 06/10/17 Allergies Allergy/AdvReac Type Severity Reaction Status Date / Time NSAIDS (Non-Steroidal Allergy Unknown See Verified 06/30/17 13:03 Anti-Inflamma Comments Penicillins Allergy Unknown Hives Verified 06/30/17 13:03 lisinopril AdvReac Cough Verified 06/30/17 13:03 lorazepam [From Ativan] AdvReac Confusion Verified 06/30/17 13:03 tramadol AdvReac Nausea Verified 06/30/17 13:03 All systems ED: reviewed and negative except as stated. Constitutional: Denies: fever, chills, weakness, weight change Eyes: Denies: eye pain, eye discharge, vision change ENT ED: Denies: ear pain, throat pain, dental pain, hearing loss, epistaxis, congestion, dysphagia Cardiovascular: Denies: chest pain, palpitations, dyspnea on exertion, edema, syncope Respiratory: Reports: cough, dyspnea, wheezes. Denies: hemoptysis, stridor Gastrointestinal: Denies: abdominal pain, nausea, vomiting, diarrhea, constipation, hematemesis, melena, hematochezia Genitourinary: Denies: dysuria, frequency, hematuria, discharge Musculoskeletal: Denies: back pain, neck pain, arthralgia, myalgia Integumentary: Denies: rash, abrasion, lesions Neurological: Denies: headache, weakness, numbness, paresthesias, confusion, abnormal gait, vertigo Psychiatric: Denies: anxiety, depression, suicidal thoughts, homicidal thoughts , auditory hallucinations, visual hallucinations Endocrine: Denies: fatigue Hematological/Lymphatic: Denies: easy bleeding, easy bruising Allergic/Immunologic: Denies: facial swelling, urticaria Past Medical History - Past Medical History Medical history: Reports: asthma, COPD, diabetes, GERD, hyperlipidemia, hypertension, renal disease Surgical history: Reports: appendectomy, cholecystectomy, knee replacement, other Psychiatric history: Reports: anxiety [employer]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 , 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 - Social History Smoking Status: Former smoker Smokeless Tobacco Status: No Alcohol use: Reports: none Drug use: Reports: none Physical Exam - General Limitations: no limitations General appearance: alert, in no apparent distress - Head Head exam: atraumatic - Eye Eye exam: Present: normal appearance, PERRL, EOMI - ENT ENT exam: normal exam, normal oropharynx, mucous membranes moist - Neck Neck exam: Present: normal inspection, full ROM, trachea midline - Chest Chest inspection: Present: normal inspection, symmetric chest wall rise - Respiratory Respiratory exam: Present: wheezes, accessory muscle use, prolonged expiratory phase - Cardiovascular Cardiovascular exam: Present: regular rate, normal rhythm, normal heart sounds - Abdominal Exam Abdominal exam: Present: soft, Non-Tender. Absent: tenderness, distention, guarding, rebound, rigidity - Extremities Exam Extremities exam: Present: normal inspection, full ROM. Absent: tenderness, pedal edema - Expanded Lower Extremity Exam Neurovascular/Tendon exam: Absent: motor deficit, sensory deficit, tendon deficit Gait: not tested/not observed - Back Exam Back exam: Present: normal inspection, full ROM. Absent: tenderness - Neurological Exam Neurological exam: Present: alert, oriented X3 - Psychiatric Psychiatric exam: Present: normal affect, normal mood - Skin Skin exam: Present: warm, dry, intact, normal color Course - Reevaluation(s) Reevaluation #1: 57-year-old history COPD comes in with increasing shortness of breath cough. Chest x-rays negative. She is given a breathing treatment and steroids continues to have some wheezing. Patient will be admitted. Time: 14:36 - Consultations Consultation #1: Discussed with Dr. Garcia, admit Time: 14:55 Vital Signs Temperature 98.1 F 06/30/17 12:54 Pulse Rate 120 06/30/17 12:54 Respiratory Rate 22 06/30/17 12:54 Blood Pressure 175/117 06/30/17 12:54 O2 Sat by Pulse Oximetry 96 06/30/17 12:54 Temperature 98.1 F 06/30/17 13:28 Pulse Rate 112 06/30/17 14:00 Respiratory Rate 24 06/30/17 14:00 Blood Pressure 155/94 06/30/17 14:00 O2 Sat by Pulse Oximetry 96 06/30/17 14:00 Oxygen Delivery Oxygen Delivery Nasal Cannula Shortness of Breath/Dyspnea - Lab Data Lab results reviewed: Yes I reviewed the patient's lab results. Result diagrams: 06/30/17 12:56 06/30/17 12:56 Lab Results 06/30/17 06/30/17 06/30/17 Range/Units 12:56 12:56 12:56 WBC 6.0 (4.3-11.1) K/mcL RBC 3.70 L (3.82-4.97) M/mcL Hgb 10.4 L (11.5-15.4) g/dL Hct 33.4 L (35.3-44.9) % MCV 90.3 (83.0-100.0) fL MCH 28.1 (28.0-33.3) pg MCHC 31.1 L (31.6-35.5) g/dL RDW 18.3 H (11.5-14.5) % Plt Count 362 (140-400) K/mcL MPV 10.1 (9.4-12.4) fL Immature Gran % 0.7 (0-4) % Seg Neutrophils % 52.6 % Lymphocytes % 31.1 % Monocytes % 11.3 % Eosinophils % 3.8 % Basophils % 0.5 % Neutrophils # 3.2 (1.6-8.9) K/mcL Lymphocytes # 1.9 (0.6-4.6) K/mcL Monocytes # 0.7 (0.0-1.3) K/mcL Eosinophils # 0.2 (0.0-0.6) K/mcL Basophils # 0.0 (0.0-0.2) K/mcL Nucleated RBCs/100 WBC 0.3 H (0) /100 WBC PT 12.4 H (9.4-12.1) Seconds INR 1.1 APTT 25.4 L (26.0-36.0) Seconds Sodium 142 (136-145) mEq/L Potassium 4.1 (3.5-5.1) mEq/L Chloride 110 H (98-107) mEq/L Carbon Dioxide 23 (23-29) mEq/L BUN 9 (6-20) mg/dL Creatinine 0.55 L (0.60-1.20) mg/dL Est GFR ( Amer) > 60 (> 60) Est GFR (Non-Af Amer) > 60 (> 60) BUN/Creatinine Ratio 16 (6-26) Glucose 130 H (70-105) mg/dL Calculated Osmolality 294 (280-300) Lactic Acid (0.5-2.2) mmol/L Calcium 9.2 (8.6-10.3) mg/dL Troponin I < 0.03 (< 0.04) ng/mL B-Natriuretic Peptide (Less than 100) pg/mL 06/30/17 06/30/17 Range/Units 12:56 13:13 WBC (4.3-11.1) K/mcL RBC (3.82-4.97) M/mcL Hgb (11.5-15.4) g/dL Hct (35.3-44.9) % MCV (83.0-100.0) fL MCH (28.0-33.3) pg MCHC (31.6-35.5) g/dL RDW (11.5-14.5) % Plt Count (140-400) K/mcL MPV (9.4-12.4) fL Immature Gran % (0-4) % Seg Neutrophils % % Lymphocytes % % Monocytes % % Eosinophils % % Basophils % % Neutrophils # (1.6-8.9) K/mcL Lymphocytes # (0.6-4.6) K/mcL Monocytes # (0.0-1.3) K/mcL Eosinophils # (0.0-0.6) K/mcL Basophils # (0.0-0.2) K/mcL Nucleated RBCs/100 WBC (0) /100 WBC PT (9.4-12.1) Seconds INR APTT (26.0-36.0) Seconds Sodium (136-145) mEq/L Potassium (3.5-5.1) mEq/L Chloride (98-107) mEq/L Carbon Dioxide (23-29) mEq/L BUN (6-20) mg/dL Creatinine (0.60-1.20) mg/dL Est GFR ( Amer) (> 60) Est GFR (Non-Af Amer) (> 60) BUN/Creatinine Ratio (6-26) Glucose (70-105) mg/dL Calculated Osmolality (280-300) Lactic Acid 1.2 (0.5-2.2) mmol/L Calcium (8.6-10.3) mg/dL Troponin I (< 0.04) ng/mL B-Natriuretic Peptide 53 (Less than 100) pg/mL - Radiology Data Radiology results reviewed: Yes I reviewed the patient's radiology results. Chest X-Ray 06/30/17 12:56 IMPRESSION: 1. No active pulmonary disease. D/ / Jordan Blue MD / Jordan Blue MD Interpreting Provider: Jordan Blue MD - EKG Data EKG attestation: Yes I reviewed and interpreted this EKG. EKG shows normal: Reports: sinus rhythm Rate: Reports: tachycardia (117) Rhythm: Reports: NSR Wilmer/QRS: Reports: normal Interpretation: Reports: no acute changes
[2017-06-30 13:28] LABS: Basophils % 0.5 %; Eosinophils # 0.2 K/mcL (0.0-0.6); Eosinophils % 3.8 %; Hematocrit 33.4 % (35.3-44.9); Hemoglobin 10.4 g/dL (11.5-15.4); Immature Granulocytes % 0.7 % (0-4); Lymphocytes # 1.9 K/mcL (0.6-4.6); Lymphocytes % 31.1 %; Mean Corpuscular HGB Conc 31.1 g/dL (31.6-35.5); Mean Corpuscular Hemoglobin 28.1 pg (28.0-33.3); Mean Corpuscular Volume 90.3 fL (83.0-100.0); Mean Platelet Volume 10.1 fL (9.4-12.4); Monocytes # 0.7 K/mcL (0.0-1.3); Monocytes % 11.3 %; Neutrophils # 3.2 K/mcL (1.6-8.9); Nucleated Red Blood Cells 0.3 /100 WBC (0); Platelet Count 362 K/mcL (140-400); Red Cell Distribution Width 18.3 % (11.5-14.5); Segmented Neutrophils % 52.6 %
[2017-06-30 13:38] LABS: INR 1.1; Prothrombin Time 12.4 Seconds (9.4-12.1)
[2017-06-30 13:41] LABS: Activated Partial Thrombo Time 25.4 Seconds (26.0-36.0)
[2017-06-30 13:49] LABS: Troponin I < 0.03 ng/mL (< 0.04)
[2017-06-30 14:03] LABS: BUN/Creatinine Ratio 16 (6-26); Blood Urea Nitrogen 9 mg/dL (6-20); Calcium 9.2 mg/dL (8.6-10.3); Carbon Dioxide 23 mEq/L (23-29); Chloride 110 mEq/L (98-107); Glucose 130 mg/dL (70-105); Osmolality,Calculated 294 (280-300); Potassium 4.1 mEq/L (3.5-5.1); Sodium 142 mEq/L (136-145); eGFR For African Americans > 60 (> 60); eGFR For Non-African Americans > 60 (> 60)
[2017-06-30] MEDS ORDERED: *HR* HYDROcodone/Acet 5/325 mg TABLET PO ONE (16:16)
--- NOTE | 2017-06-30 18:52 | Internal Med History&Physical ---
Date of Encounter: 06/30/17 Time of Encounter: 17:00 Internal Medicine - H&P: HPI Chief complaint: Shortness of Admitted From: Home History of present illness: Patient is a 57-year-old female with past medical history significant for O2 dependent COPD (3 L nasal cannula), hypertension and diabetes who presents to the ER on 06/30/17 due to shortness of breath. Patient reports of recently being discharged from [facility] approximately 2 weeks ago for pneumonia and completed antibiotic course. Patient reports of a 2 day history of shortness of breath, wheezing and productive cough and decided to come to the ER for evaluation. In the ER, chest x-ray negative for infiltrate and patient without leukocytosis and afebrile. She also on baseline O2 requirements but with expiratory wheezing. Patient admitted to stepdown unit for COPD exacerbation. Past Med Surg Social Fam HX - Past Medical History Medical history: asthma, COPD, diabetes, GERD, hyperlipidemia, hypertension, renal disease Psychiatric history: anxiety - Past Surgical History Surgical History: appendectomy, cholecystectomy, knee replacement - Social History Smoking Status: Former smoker Smokeless Tobacco Status: No Alcohol use: none Drug use: none - Family History Father Family Member Ethnicity: Non- Living Status: Hx Family Cardiac Disorders: Yes Hx Family Respiratory Disorders: No Hx Family Cancer: No Hx Family GI Disorders: No Hx Family Endocrine Disorder: No Hx Family Neuromuscular Disorders: No Hx Family Neurologic Disorders: No Hx Family HEENT Disorders: No Hx Family Autoimmune Disorders: No Mother Adopted: No Family Member Ethnicity: Non- Living Status: Still Living Hx Family Cardiac Disorders: No Hx Family Respiratory Disorders: No Hx Family Cancer: No Hx Family GI Disorders: No Hx Family Endocrine Disorder: Yes (DM) Hx Family Neuromuscular Disorders: No Hx Family Neurologic Disorders: No Hx Family HEENT Disorders: No Hx Family Autoimmune Disorders: Yes (Arthritis) Internal Medicine - H&P: Meds cloNIDine HCl [Clonidine HCl] 0.3 mg PO QID 05/16/16 [History] Oxygen 3 l IH AD 07/19/16 [History] Insulin Glargine [Lantus] 38 unit SQ HS 08/10/16 [History] amLODIPine [Norvasc] 5 mg PO HS #30 tab 09/30/16 [Rx] Albuterol Sulfate [Ventolin Hfa] 2 puff IH Q4H PRN #1 inh 10/15/16 [Rx] Pantoprazole Sodium [Protonix] 40 mg PO BIDWM #60 tablet. 11/10/16 [Rx] Ipratropium/Albuterol Neb [Duoneb] 3 ml IH Q4HR 11/20/16 [History] Ranitidine HCl [Zantac] 150 mg PO DAILY 11/20/16 [History] Aspirin [Lo-Dose Aspirin EC] 81 mg PO DAILY 01/12/17 [History] Losartan/Hydrochlorothiazide [Losartan-Hctz 100-25 mg Tab] 1 tab PO DAILY [History] Furosemide [Lasix] 40 mg PO DAILY PRN 01/31/17 [History] Nitroglycerin [Nitrostat] 0.4 mg PO Q5M 06/03/17 [History] Ondansetron ODT [Zofran ODT] 1 tab PO Q6HR PRN 06/03/17 [History] Potassium Chloride [Klor-Con 10] 10 meq PO DAILY 06/03/17 [History] Insulin LISPRO [HumaLOG] 0 units SQ TID 06/04/17 [History] 3 Allergy/AdvReac Type Severity Reaction Status Date / Time NSAIDS (Non-Steroidal Allergy Unknown See Verified 06/30/17 13:03 Anti-Inflamma Comments Penicillins Allergy Unknown Hives Verified 06/30/17 13:03 lisinopril AdvReac Cough Verified 06/30/17 13:03 lorazepam [From Ativan] AdvReac Confusion Verified 06/30/17 13:03 tramadol AdvReac Nausea Verified 06/30/17 13:03 All Systems PM: A 10-system review of systems was performed and is negative for pertinent findings except as documented above in the HPI. - Constitutional Vitals: Temp Pulse Resp BP Pulse Ox 97.8 F 112 20 210/124 96 06/30/17 17:04 06/30/17 17:04 06/30/17 17:04 06/30/17 17:04 06/30/17 17:54 General appearance: Present: A&O X 3, no acute distress - ENT ENT exam: Present: mucous membranes moist - Respiratory Respiratory exam: Present: wheezes (Bilateral expiratory wheezes). Absent: rales, respiratory distress, rhonchi - Cardiovascular Cardiovascular exam: Present: RRR, +S1, +S2. Absent: diastolic murmur, gallop, rubs, systolic murmur - GI/Abdominal GI/Abdominal exam: Present: normal bowel sounds, soft, no peritoneal signs. Absent: distended, tenderness - Extremities Exam Extremities exam: Absent: pedal edema - Neurological Exam Neurological exam: Present: oriented X3 - Psychiatric Psychiatric exam: Present: normal mood - Skin Skin exam: Present: normal color Internal Med - H&P Results - Labs CBC & Chem 7: 06/30/17 12:56 06/30/17 12:56 - Assessment and plan (1) Acute exacerbation of chronic obstructive airways disease Current Visit: No Status: Acute Assessment and plan: Patient with a 2 day history of shortness of breath with expiratory wheezing on exam Chest x-ray negative for infiltrates and currently on baseline O2 requirements Continue dual nebs and IV steroids and start her on azithromycin (2) Hypertension Current Visit: No Status: Chronic Assessment and plan: Controlled; continue home medications Qualifiers: Hypertension type: essential hypertension Qualified Code(s): I10 - Essential (primary) hypertension (3) DM type 2, uncontrolled, with neuropathy Current Visit: No Status: Chronic (4) GERD (gastroesophageal reflux disease) Current Visit: No Status: Chronic Assessment and plan: Continue H2 samina Qualifiers: Esophagitis presence: esophagitis presence not specified Qualified Code(s) : K21.9 - Gastro-esophageal reflux disease without esophagitis (5) Obesity (BMI 30.0-34.9) Current Visit: No Status: Chronic Assessment and plan: BMI of 30.6 (6) DVT prophylaxis Current Visit: No Status: Resolved Assessment and plan: Subcutaneous heparin - Time Spent With Patient Total time spent is greater than 50% in coordination of care (as documented) at patient's floor/unit and/or counseling patient:
[2017-06-30] MEDS ORDERED: Naloxone 0.4 MG/ML INJ IVP PRN (18:56)
[2017-06-30] MEDS ORDERED: Acetaminophen 325 MG TABLET PO PRN (18:56)
[2017-06-30] MEDS ORDERED: Furosemide 40 MG TABLET PO PRN (19:01)
[2017-06-30] MEDS ORDERED: NON-FORMULARY MEDICATION 1 EACH EACH (Oxygen [Oxygen] 3 L) IH SCH (19:15)
[2017-06-30] MEDS: Ipratropium/Albuterol Neb 3 ML IH SCH ×2 (19:40→23:11)
[2017-06-30] MEDS: Azithromycin 500 MG in D5% in Water 250 ML IVPB SCH (19:50)
[2017-06-30] MEDS: Ondansetron ODT 4 MG TAB.RAPDIS PO PRN (19:52)
[2017-06-30] MEDS ORDERED: Ipratropium/Albuterol Neb 3 ML IH SCH (20:00)
[2017-06-30] MEDS: amLODIPine 5 MG TABLET PO SCH (20:29)
[2017-06-30] MEDS: cloNIDine HCl 0.1 MG TABLET PO SCH (20:29)
[2017-06-30] MEDS: *HR* OxyCODONE/APAP 10/325 TABLET PO PRN (21:13)
[2017-06-30] MEDS: Insulin DETEMIR 100 UNIT/ML X5UNITS SQ SCH (21:14)
[2017-06-30] MEDS ORDERED: Dextrose Gel 15 GM/37.5 ML TUBE PO PRN ×2 (21:21)
[2017-06-30] MEDS ORDERED: *HR* Dextrose 50 % in Water (Syg) 50 ML SYRINGE IVP PRN (21:21)
[2017-06-30] MEDS ORDERED: D5% in Water 1,000 ML IVC PRN (21:21)
[2017-06-30] MEDS ORDERED: Insulin LISPRO 300 UNITS/3 ML VIAL SQ ONE (21:43)
[2017-06-30] MEDS: Pantoprazole 40 MG VIAL IVP SCH (21:49)
[2017-06-30] MEDS: Insulin LISPRO 300 UNITS/3 ML VIAL SQ SCH (21:59)
[2017-07-01] MEDS: *HR* HYDROcodone/Acet 5/325 mg TABLET PO PRN ×4 (00:31→21:26)
[2017-07-01] MEDS: methylPREDNISolone 125 MG/2 ML VIAL IVP SCH ×2 (00:32→08:45)
[2017-07-01] MEDS: Ipratropium/Albuterol Neb 3 ML IH SCH ×6 (03:48→23:57)
[2017-07-01] MEDS: *HR* OxyCODONE/APAP 10/325 TABLET PO PRN ×2 (05:15→13:35)
[2017-07-01] MEDS: Pantoprazole 40 MG VIAL IVP SCH (05:16)
[2017-07-01 06:35] LABS: Basophils % 0.5 %; Hematocrit 35.3 % (35.3-44.9); Hemoglobin 11.1 g/dL (11.5-15.4); Immature Granulocytes % 1.2 % (0-4); Lymphocytes # 0.5 K/mcL (0.6-4.6); Lymphocytes % 12.3 %; Mean Corpuscular HGB Conc 31.4 g/dL (31.6-35.5); Mean Corpuscular Hemoglobin 27.3 pg (28.0-33.3); Mean Corpuscular Volume 86.9 fL (83.0-100.0); Monocytes # 0.1 K/mcL (0.0-1.3); Monocytes % 1.6 %; Neutrophils # 3.7 K/mcL (1.6-8.9); Nucleated Red Blood Cells 0.5 /100 WBC (0); Platelet Count 440 K/mcL (140-400); Red Blood Count 4.06 M/mcL (3.82-4.97); Red Cell Distribution Width 18.3 % (11.5-14.5); Segmented Neutrophils % 84.4 %
[2017-07-01 06:41] LABS: BUN/Creatinine Ratio 27 (6-26); Blood Urea Nitrogen 16 mg/dL (6-20); Calcium 9.2 mg/dL (8.6-10.3); Carbon Dioxide 23 mEq/L (23-29); Chloride 103 mEq/L (98-107); Glucose 317 mg/dL (70-105); Osmolality,Calculated 299 (280-300); Potassium 4.2 mEq/L (3.5-5.1); Sodium 138 mEq/L (136-145); eGFR For African Americans > 60 (> 60); eGFR For Non-African Americans > 60 (> 60)
[2017-07-01] MEDS: Famotidine 20 MG TABLET PO SCH (08:45)
[2017-07-01] MEDS: cloNIDine HCl 0.1 MG TABLET PO SCH ×4 (08:45→21:26)
[2017-07-01] MEDS: Aspirin Enteric Coated 81 MG Tablet PO SCH (08:45)
[2017-07-01] MEDS: Insulin LISPRO 300 UNITS/3 ML VIAL SQ SCH ×4 (08:46→21:30)
[2017-07-01] MEDS ORDERED: Losartan/HCTZ 50-12.5 TABLET PO ONE (08:52)
[2017-07-01] MEDS ORDERED: Losartan/HCTZ 50-12.5 TABLET PO SCH (09:00)
--- NOTE | 2017-07-01 10:21 | Internal Med Progress Note ---
<Ruddy Vaca - Last Filed: 07/01/17 14:41> Date of Encounter: 07/01/17 Time of Encounter: 09:00 - Assessment and plan (1) Tachycardia Current Visit: Yes Status: Acute Assessment and plan: Acute and chronic sinus tachycardia Patient admits to some chest tightness, feeling of rapid heart rate Initial and repeat EKG show sinus Tachycardia without evidence of ischemic changes, troponin negative The patient says that this has been chronic in the past, but on last admission it was controlled with toprol We will increase beta samina to try to control heart rate to prevent tachycardia induced cardiomyopathy Consult cardiology for Holter management (2) Acute exacerbation of chronic obstructive airways disease Current Visit: Yes Status: Acute Assessment and plan: Patient with a 2 day history of shortness of breath with expiratory wheezing on exam Chest x-ray negative for infiltrates and currently on baseline O2 requirements Continue dual nebs, azithromycin Day 2 Transition to PO Prednisone (3) DM type 2, uncontrolled, with neuropathy Current Visit: Yes Status: Chronic Assessment and plan: DM 2 with hyperglycemia and neuropathy The patient did have blood glucose of 317 this morning, possibly related to addition of steroids I will check A1C tomorrow, and continue treatment with SSI. May increase before discharge (4) Hypertension Current Visit: Yes Status: Chronic Assessment and plan: Poorly controlled as of this morning SBP >160 overnight I suspect HTN is the cause of patient's headache Continue home meds, add toprol + labelol prn Qualifiers: Hypertension type: essential hypertension Qualified Code(s): I10 - Essential (primary) hypertension (5) GERD (gastroesophageal reflux disease) Current Visit: No Status: Chronic Assessment and plan: Continue H2 samina Qualifiers: Esophagitis presence: esophagitis presence not specified Qualified Code(s) : K21.9 - Gastro-esophageal reflux disease without esophagitis (6) DVT prophylaxis Current Visit: No Status: Resolved Assessment and plan: Subcutaneous heparin (7) Obesity (BMI 30.0-34.9) Current Visit: No Status: Chronic Assessment and plan: BMI of 30.6 - Time Spent With Patient Total time spent is greater than 50% in coordination of care (as documented) at patient's floor/unit and/or counseling patient: - Subjective Interval history: The patient is seen and examined at bedside. Today she is feeling a strong headache that she describes as a band around her head. She feels that this may be related to her blood pressure, as she's had similar headaches in the past associated with high blood pressure. She does says that her SOB has resolved to some extent. - Constitutional Vitals: Temp Pulse Resp BP Pulse Ox 98.4 F 143 18 141/107 94 07/01/17 06:56 07/01/17 06:56 07/01/17 07:34 07/01/17 06:56 07/01/17 07:34 General appearance: Present: A&O X 3, no acute distress Exam: Gen: Vitals noted. No acute distress. HEENT: PERRL/EOMI, oropharynx clear, Normocephalic, atraumatic Neck: Supple. No adenopathy. Cardiac: RRR, no murmur, +S1/S2 Pulmonary: Mild wheezes on exam b/l, diminished lung sounds particularly in the bases Abdomen: soft, nontender, BS noted, no guarding Back: Nontender throughout. MSK: ROM intact, no joint swelling noted Extremities: 2+ BLE edema, nontender calf, no cyanosis or clubbing Neuro: A&Ox3, moves all extremities, no focal deficits Psych: Appropriate mood and behavior Internal Medicine: Result - Labs CBC & Chem 7: 07/01/17 05:48 07/01/17 05:48 Labs: Short CBC 07/01/17 Range/Units 05:48 WBC 4.3 (4.3-11.1) K/mcL Hgb 11.1 L (11.5-15.4) g/dL Hct 35.3 (35.3-44.9) % Plt Count 440 H (140-400) K/mcL Neutrophils # 3.7 (1.6-8.9) K/mcL BMP 07/01/17 05:48 Sodium 138 Potassium 4.2 Chloride 103 Carbon Dioxide 23 BUN 16 Creatinine 0.59 L Glucose 317 H Calcium 9.2 - ABG Interpretation ABG results: PT/INR, D-dimer PT 12.4 Seconds (9.4-12.1) H 06/30/17 12:56 Consult Discharge Plan - Plan Referrals: Domitila Lau MD [Primary Care Provider] - 07/07/17 11:00 am <Obed Krause - Last Filed: 07/01/17 15:28> Date of Encounter: 07/01/17 - Assessment and plan (1) Acute exacerbation of chronic obstructive airways disease Current Visit: Yes Status: Acute (2) DVT prophylaxis Current Visit: No Status: Resolved (3) DM type 2, uncontrolled, with neuropathy Current Visit: Yes Status: Chronic (4) Hypertension Current Visit: Yes Status: Chronic Qualifiers: Hypertension type: essential hypertension Qualified Code(s): I10 - Essential (primary) hypertension (5) GERD (gastroesophageal reflux disease) Current Visit: No Status: Chronic Qualifiers: Esophagitis presence: esophagitis presence not specified Qualified Code(s) : K21.9 - Gastro-esophageal reflux disease without esophagitis (6) Tachycardia Current Visit: Yes Status: Acute (7) Obesity (BMI 30.0-34.9) Current Visit: No Status: Chronic - Time Spent With Patient Total time spent is greater than 50% in coordination of care (as documented) at patient's floor/unit and/or counseling patient: - Constitutional Vitals: Temp Pulse Resp BP Pulse Ox 98.2 F 132 18 159/89 95 07/01/17 11:02 07/01/17 11:02 07/01/17 11:02 07/01/17 11:02 07/01/17 11:02 Internal Medicine: Result - Labs CBC & Chem 7: 07/01/17 05:48 07/01/17 05:48 Labs: Short CBC 07/01/17 Range/Units 05:48 WBC 4.3 (4.3-11.1) K/mcL Hgb 11.1 L (11.5-15.4) g/dL Hct 35.3 (35.3-44.9) % Plt Count 440 H (140-400) K/mcL Neutrophils # 3.7 (1.6-8.9) K/mcL BMP 07/01/17 05:48 Sodium 138 Potassium 4.2 Chloride 103 Carbon Dioxide 23 BUN 16 Creatinine 0.59 L Glucose 317 H Calcium 9.2 - ABG Interpretation ABG results: PT/INR, D-dimer PT 12.4 Seconds (9.4-12.1) H 06/30/17 12:56 - Attending Attestation I examined this patient and my medical decision-making was reviewed with the Resident Physician on 07/01/17. I agree with the documented findings, disposition and treatment plan as described except to the extent set forth below. Admitted for COPDE. Not in any form of distress, Unable to afford any meds due to insurance issues. Continue current care. SW following. Rest of details as in the resident physician's documentation
[2017-07-01] MEDS ORDERED: *HR* Labetalol 20 MG/4 ML SYRINGE IVP PRN (11:12)
[2017-07-01] MEDS: *HR* Metoprolol 5 MG/5 ML VIAL IVP SCH ×2 (11:27→11:54)
[2017-07-01] MEDS: Losartan/HCTZ 50-12.5 TABLET PO SCH (11:27)
[2017-07-01] MEDS: Levalbuterol Neb 0.63 MG/3 ML IH SCH ×2 (15:39→21:42)
--- NOTE | 2017-07-01 15:39 | Cardiology Consult Note ---
Date of Encounter: 07/01/17 Time of Encounter: 15:34 Assessment and Plan (1) Sinus tachycardia Current Visit: Yes Status: Resolved 12 hr tele AVG HR 124. Per pt, seems to have been a chronic issues, currently acute on chronic in setting of COPD exacerbation. Primary team started Toprol XL 25mg daily, HR seems to have improved. Current HR 90s-low 100s at bedside. No arrhythmias noted on tele. Continue BB. TTE 04/2017 EF preserved. Will discuss with Dr. Cordova for any further recs. Holter ordered as outpt, but now pt is on continues telemetry as inpt for monitor for arrhythmias. None noted so far. (2) Hypertension Current Visit: Yes Status: Chronic Hx of renal artery stenosis per pt with right renal stent in 1999. Continue current antihypertensives and adjust as necessary. Qualifiers: Hypertension type: unspecified Qualified Code(s): I10 - Essential (primary ) hypertension (3) Chest pain Current Visit: Yes Status: Acute Pt reports occasional chest discomfort/pressure occurs at rest as well as with exertion. Associated with worsening dyspnea, occasional nausea. Lasts for few minutes and resolves. Has been having over past few years. Occurs once a month. Troponin negative x 1. Currently chest pain free, no ischemic EKG changes. Risk factors for CAD include HTN, HLD, DM, tobacco abuse, family hx. TTE 04/2017 EF preserved. Outpt stress test ordered, never completed per pt due to not having insurance. Currently with COPD exacerbation, wheezes on exam. Would recommend stress test once acute COPD exacerbation has improved. Qualifiers: Chest pain type: unspecified Qualified Code(s): R07.9 - Chest pain, unspecified Discussion w patient/family: The assessment and plan as outlined above was discussed with the patient and/or family members who expressed understanding and agreement. All questions were answered. Thank you for involving us in the care of your patient. Please call with any questions. I will discuss all the above with Dr. Cordova and make changes as necessary. History of Present Illness Consult date: 07/01/17 Requesting physician: Ruddy Vaca Consult reason: sinus tach Chief complaint: dyspnea History of present illness: Ms. Ren is a 57 year old female with PMH of O2-dependent COPD, DM, HTN, hyperlipidemia. Pt presented for 2 days worsening dyspnea, wheezing and productive cough, diagnosed with COPD exacerbation. Pt has longstanding dyspnea for years. Currently O2-dependent on 3L O2 NC and biPAP at night. Has occasional chest discomfort/pressure occurs at rest as well as with exertion. Associated with worsening dyspnea, occasional nausea. Lasts for few minutes and resolves. Has been having over past few years. Occurs once a month. Has orthopnea- sleeps at 90 degrees in recliner. Denies PND, LE edema, weight gain. Has difficulty with BP at times- can be in 180/100s at times. Had RIVAS s/p stenting of R renal artery in 1999 per pt. Has also had "elevated HR since I was 26." Sinus tach. Denies arrhythmias or prior cardiac history. Remote stress test years ago. Pt has been sinus tach since admission, 12 hr AVG HR 124. Was started on Toprol XL 25mg daily, HR currently 90s-low 100s at bedside. Pt saw Dr. Parul Peterson 04/2017 as outpt. Holter and stress test were ordered at that time, never completed per pt due to not having insurance. Pt denies chest pain currently, troponin negative x 1. Echo 04/2017:Impressions: LVEF 65-70%. Indeterminate diastolic function. Normal right ventricular structure and function. No significant valvular dysfunction. No pulmonary hypertension. Past Med Surg Social Fam HX - Past Medical History Medical history: asthma, COPD, diabetes, GERD, hyperlipidemia, hypertension, renal disease Psychiatric history: anxiety - Past Surgical History Surgical History: appendectomy, cholecystectomy, knee replacement - Social History Smoking Status: Former smoker Smokeless Tobacco Status: No Alcohol use: none Drug use: none - Family History Father Family Member Ethnicity: Non- Living Status: Hx Family Cardiac Disorders: Yes Hx Family Respiratory Disorders: No Hx Family Cancer: No Hx Family GI Disorders: No Hx Family Endocrine Disorder: No Hx Family Neuromuscular Disorders: No Hx Family Neurologic Disorders: No Hx Family HEENT Disorders: No Hx Family Autoimmune Disorders: No Mother Adopted: No Family Member Ethnicity: Non- Living Status: Still Living Hx Family Cardiac Disorders: No Hx Family Respiratory Disorders: No Hx Family Cancer: No Hx Family GI Disorders: No Hx Family Endocrine Disorder: Yes (DM) Hx Family Neuromuscular Disorders: No Hx Family Neurologic Disorders: No Hx Family HEENT Disorders: No Hx Family Autoimmune Disorders: Yes (Arthritis) Medications and Allergies cloNIDine HCl [Clonidine HCl] 0.3 mg PO QID 05/16/16 [History] Oxygen 3 l IH AD 07/19/16 [History] Insulin Glargine [Lantus] 38 unit SQ HS 08/10/16 [History] amLODIPine [Norvasc] 5 mg PO HS #30 tab 09/30/16 [Rx] Albuterol Sulfate [Ventolin Hfa] 2 puff IH Q4H PRN #1 inh 10/15/16 [Rx] Pantoprazole Sodium [Protonix] 40 mg PO BIDWM #60 tablet. 11/10/16 [Rx] Ipratropium/Albuterol Neb [Duoneb] 3 ml IH Q4HR 11/20/16 [History] Ranitidine HCl [Zantac] 150 mg PO DAILY 11/20/16 [History] Aspirin [Lo-Dose Aspirin EC] 81 mg PO DAILY 01/12/17 [History] Losartan/Hydrochlorothiazide [Losartan-Hctz 100-25 mg Tab] 1 tab PO DAILY [History] Furosemide [Lasix] 40 mg PO DAILY PRN 01/31/17 [History] Nitroglycerin [Nitrostat] 0.4 mg PO Q5M 06/03/17 [History] Ondansetron ODT [Zofran ODT] 1 tab PO Q6HR PRN 06/03/17 [History] Potassium Chloride [Klor-Con 10] 10 meq PO DAILY 06/03/17 [History] Insulin LISPRO [HumaLOG] 0 units SQ TID 06/04/17 [History] 3 Allergy/AdvReac Type Severity Reaction Status Date / Time NSAIDS (Non-Steroidal Allergy Unknown See Verified 06/30/17 13:03 Anti-Inflamma Comments Penicillins Allergy Unknown Hives Verified 06/30/17 13:03 lisinopril AdvReac Cough Verified 06/30/17 13:03 lorazepam [From Ativan] AdvReac Confusion Verified 06/30/17 13:03 tramadol AdvReac Nausea Verified 06/30/17 13:03 All Systems Review: The remainder of the systems were reviewed and are negative - Cardiovascular Cardiovascular: as per HPI, chest pain at rest, chest pain with exertion, dyspnea at rest, dyspnea on exertion, orthopnea, palpitations, rapid heart rate - Respiratory Respiratory: cough, dyspnea, wheezing - Gastrointestinal Gastrointestinal: nausea Physical Examination Vital Signs Temp Pulse Resp BP Pulse Ox 07/01/17 11:02 98.2 F 132 18 159/89 95 07/01/17 07:34 18 94 07/01/17 06:56 98.4 F 143 18 141/107 94 07/01/17 05:20 149/83 07/01/17 03:48 20 94 07/01/17 03:44 98.6 F 130 18 177/105 94 06/30/17 23:49 97.9 F 146 16 160/81 96 06/30/17 23:11 20 95 06/30/17 19:40 20 96 06/30/17 19:15 98.6 F 137 19 205/123 96 06/30/17 17:54 96 06/30/17 17:04 97.8 F 112 20 210/124 96 06/30/17 16:00 111 24 175/93 96 Intake and Output 06/30/17 07/01/17 07/01/17 23:59 07:59 15:59 Intake Total 240 / 240 360 / 360 Output Total 900 / 900 Balance -660 / -660 360 / 360 Intake: Oral 240 / 240 360 / 360 Output: Urine 900 / 900 Other: Meal Lunch Percent of Meal Consumed 45% Weight 83.5 kg 83.8 kg Blood Glucose* 337 281 253 Patient Weight 07/01/17 23:59 Weight 83.8 kg General: Conversant, No Apparent Distress HEENT: Atraumatic, Normocephaly, Mucus Membranes Moist Neck: Normal carotid pulses Cardiac: Reg Rate and Rhythm, Normal S1 and S2, Other (tachycardic) Lungs: Other (wheezes bilaterally) Neuro: Alert and responsive, No focal deficits noted Abdomen: Soft, Non-Tender Skin: No rashes noted on visualized skin Musculoskeletal: No Chest Wall Tenderness Extremities: No Clubbing, No Cyanosis, No Edema, Normal Pulses Results 07/01/17 05:48 07/01/17 05:48 Lab Results 07/01/17 07/01/17 05:48 05:48 WBC 4.3 Hgb 11.1 L Hct 35.3 Plt Count 440 H Sodium 138 Potassium 4.2 Chloride 103 Carbon Dioxide 23 BUN 16 Creatinine 0.59 L Glucose 317 H Calcium 9.2 Short CBC 07/01/17 Range/Units 05:48 WBC 4.3 (4.3-11.1) K/mcL Hgb 11.1 L (11.5-15.4) g/dL Hct 35.3 (35.3-44.9) % Plt Count 440 H (140-400) K/mcL Neutrophils # 3.7 (1.6-8.9) K/mcL BMP 07/01/17 Range/Units 05:48 Sodium 138 (136-145) mEq/L Potassium 4.2 (3.5-5.1) mEq/L Chloride 103 (98-107) mEq/L Carbon Dioxide 23 (23-29) mEq/L BUN 16 (6-20) mg/dL Creatinine 0.59 L (0.60-1.20) mg/dL Glucose 317 H (70-105) mg/dL Calcium 9.2 (8.6-10.3) mg/dL Active Medications Acetaminophen (Tylenol) 650 mg PO Q6HR PRN PRN Reason: Mild Pain/Fever Stop: 12/30/17 18:57 Last Admin: 07/01/17 06:17 Dose: 650 mg Hydrocodone Bitart/Acetaminophen ([place] 5-325 Mg) 1 tab PO Q6HR PRN PRN Reason: Moderate Pain Stop: 12/30/17 20:25 Last Admin: 07/01/17 08:52 Dose: 1 tab Albuterol/Ipratropium (Duoneb) 3 ml IH [id number] MARBIN Stop: 12/30/17 20:01 Last Admin: 07/01/17 15:39 Dose: Not Given Amlodipine Besylate (Norvasc) 5 mg PO HS MARBIN PRN Reason: Protocol Stop: 12/30/17 21:01 Last Admin: 06/30/17 20:29 Dose: 5 mg Aspirin (Aspirin Ec) 81 mg PO DAILY MARBIN Stop: 12/31/17 09:01 Last Admin: 07/01/17 08:45 Dose: 81 mg Atorvastatin Calcium (Lipitor) 20 mg PO HS MARBIN Stop: 12/31/17 21:01 Clonidine HCl (Clonidine Hcl) 0.3 mg PO QID MARBIN Stop: 12/30/17 21:01 Last Admin: 07/01/17 14:23 Dose: 0.3 mg Dextrose/Water (Dextrose 50% (Syg)) 25 ml IVP AD PRN PRN Reason: Hypoglycemia Stop: 12/30/17 21:22 Famotidine (Pepcid) 20 mg PO DAILY MARBIN Stop: 12/31/17 09:01 Last Admin: 07/01/17 08:45 Dose: 20 mg Furosemide (Lasix) 40 mg PO DAILY PRN PRN Reason: Edema Stop: 12/30/17 19:02 Glucagon (Glucagen) 1 mg IM ONCE PRN PRN Reason: Hypoglycemia Stop: 12/30/17 21:22 Glucose (Gluctose) 15 gm PO ONCE PRN PRN Reason: Hypoglycemia Stop: 12/30/17 21:22 Glucose (Gluctose) 30 gm PO ONCE PRN PRN Reason: Hypoglycemia Stop: 12/30/17 21:22 HCTZ/Losartan Potassium (Hyzaar 50/12.5) 2 each PO DAILY [facility] Stop: 12/31/17 09:01 Last Admin: 07/01/17 11:27 Dose: Not Given Heparin Sodium (Porcine) (Heparin) 5,000 unit SQ Q8HCO [facility] Stop: 12/31/17 22:01 Azithromycin 500 mg/ Dextrose 250 mls @ 252 mls/hr IVPB Q24H MARBIN Stop: 12/30/17 19:01 Last Admin: 06/30/17 19:50 Dose: 252 mls/hr Dextrose (Dextrose 5%) 1,000 mls @ 100 mls/hr IVC .Q10H PRN PRN Reason: HYPOGLYCEMIA Stop: 12/30/17 21:22 Insulin Detemir (Levemir) 38 unit SQ HS [facility] Stop: 12/30/17 21:01 Last Admin: 06/30/17 21:14 Dose: 38 unit Insulin Human Lispro (Humalog) 0 units SQ TIDAC MARBIN PRN Reason: Protocol Stop: 12/31/17 07:31 Last Admin: 07/01/17 11:31 Dose: 8 units Insulin Human Lispro (Humalog) 0 units SQ HS [facility] PRN Reason: Protocol Stop: 12/30/17 21:31 Last Admin: 06/30/17 21:59 Dose: 6 units Labetalol HCl (Labetalol) 10 mg IVP Q1H PRN PRN Reason: SBP >160 Stop: 12/31/17 11:13 Levalbuterol HCl (Xopenex) 0.63 mg IH [id number] [facility] Stop: 12/31/17 16:01 Last Admin: 07/01/17 15:39 Dose: 0.63 mg Loratadine (Claritin) 10 mg PO DAILY MARBIN PRN Reason: Protocol Stop: 12/31/17 14:31 Metoprolol Succinate (Toprol Xl) 25 mg PO DAILY [facility] Stop: 01/01/18 09:01 Metoprolol Tartrate (Lopressor) 5 mg IVP Q5MIN [facility]BIN Stop: 07/03/17 10:31 Last Admin: 07/01/17 11:54 Dose: 5 mg Naloxone HCl (Narcan) 0.4 mg IVP Q2MIN PRN PRN Reason: SEE COMMENTS Stop: 12/30/17 18:57 Omeprazole (Prilosec) 20 mg PO BIDAC MARBIN PRN Reason: Protocol Stop: 12/31/17 16:31 Ondansetron HCl (Zofran Odt) 4 mg PO Q6HR PRN PRN Reason: Nausea Stop: 12/30/17 19:02 Last Admin: 06/30/17 19:52 Dose: 4 mg Oxycodone/Acetaminophen (Percocet 10/325) 1 each PO Q8HR PRN PRN Reason: Severe Pain Stop: 12/30/17 20:26 Last Admin: 07/01/17 13:35 Dose: 1 each Potassium Chloride (Potassium Chloride) 10 meq PO DAILY [facility] Stop: 12/31/17 09:01 Last Admin: 07/01/17 08:45 Dose: 10 meq Prednisone (Prednisone) 40 mg PO DAILY [facility] Stop: 01/01/18 09:01 - Imaging and Cardiology Echo: report reviewed - EKG Interpretation EKG results cardiology: personally reviewed (sinus tach, rate 130s), other (12 hr tele AVG HR 124, sinus tach, no arrhythmias noted.) Consult Discharge Plan - Plan Referrals: Domitila Lau MD [Primary Care Provider] - 07/07/17 11:00 am
[2017-07-01] MEDS: Loratadine 10 MG TABLET PO SCH (17:19)
[2017-07-01] MEDS: amLODIPine 5 MG TABLET PO SCH (21:26)
[2017-07-01] MEDS: *HR* Heparin 5,000 UNIT/ML VIAL SQ SCH (21:28)
[2017-07-01] MEDS: Insulin DETEMIR 100 UNIT/ML X5UNITS SQ SCH (21:29)
[2017-07-01] MEDS: Azithromycin 500 MG in D5% in Water 250 ML IVPB SCH (21:29)
[2017-07-02] MEDS: Ipratropium/Albuterol Neb 3 ML IH SCH ×6 (03:49→23:29)
[2017-07-02] MEDS: Levalbuterol Neb 0.63 MG/3 ML IH SCH ×4 (03:49→21:53)
[2017-07-02] MEDS: *HR* HYDROcodone/Acet 5/325 mg TABLET PO PRN ×3 (04:06→21:58)
[2017-07-02] MEDS: *HR* Heparin 5,000 UNIT/ML VIAL SQ SCH ×3 (04:07→20:19)
[2017-07-02 04:33] LABS: Basophils % 0.1 %; Eosinophils % 0.1 %; Hematocrit 29.8 % (35.3-44.9); Immature Granulocytes % 0.8 % (0-4); Lymphocytes # 1.7 K/mcL (0.6-4.6); Lymphocytes % 22.4 %; Mean Corpuscular HGB Conc 31.2 g/dL (31.6-35.5); Mean Corpuscular Hemoglobin 27.7 pg (28.0-33.3); Mean Corpuscular Volume 88.7 fL (83.0-100.0); Mean Platelet Volume 9.8 fL (9.4-12.4); Monocytes # 0.7 K/mcL (0.0-1.3); Monocytes % 9.4 %; Neutrophils # 5.1 K/mcL (1.6-8.9); Nucleated Red Blood Cells 0.4 /100 WBC (0); Platelet Count 378 K/mcL (140-400); Red Blood Count 3.36 M/mcL (3.82-4.97); Segmented Neutrophils % 67.2 %
[2017-07-02 04:37] LABS: Hemoglobin 9.3 g/dL (11.5-15.4)
[2017-07-02 05:02] LABS: BUN/Creatinine Ratio 41 (6-26); Blood Urea Nitrogen 36 mg/dL (6-20); Calcium 8.5 mg/dL (8.6-10.3); Carbon Dioxide 24 mEq/L (23-29); Chloride 103 mEq/L (98-107); Glucose 266 mg/dL (70-105); Osmolality,Calculated 302 (280-300); Sodium 137 mEq/L (136-145); eGFR For African Americans > 60 (> 60); eGFR For Non-African Americans > 60 (> 60)
--- NOTE | 2017-07-02 07:58 | Electrocardiograph Report ---
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
[2017-07-02] MEDS: predniSONE 20 MG TABLET PO SCH (08:12)
[2017-07-02] MEDS: *HR* OxyCODONE/APAP 10/325 TABLET PO PRN ×2 (08:12→17:42)
[2017-07-02] MEDS: Aspirin Enteric Coated 81 MG Tablet PO SCH (08:12)
[2017-07-02] MEDS: Losartan/HCTZ 50-12.5 TABLET PO SCH (08:12)
[2017-07-02] MEDS: Metoprolol XL (24 HR) Succ 25 MG TAB.ER.24H PO SCH (08:12)
[2017-07-02] MEDS: Loratadine 10 MG TABLET PO SCH (08:13)
[2017-07-02] MEDS: cloNIDine HCl 0.1 MG TABLET PO SCH ×4 (08:13→20:18)
[2017-07-02] MEDS: Insulin LISPRO 300 UNITS/3 ML VIAL SQ SCH ×7 (08:13→23:25)
[2017-07-02] MEDS: Famotidine 20 MG TABLET PO SCH (08:13)
[2017-07-02] MEDS: Ondansetron ODT 4 MG TAB.RAPDIS PO PRN (08:17)
--- NOTE | 2017-07-02 10:56 | Internal Med Progress Note ---
Date of Encounter: 07/02/17 Time of Encounter: 10:53 - Assessment and plan (1) Acute exacerbation of chronic obstructive airways disease Current Visit: Yes Status: Acute Assessment and plan: Patient with a 2 day history of shortness of breath with expiratory wheezing on exam Chest x-ray negative for infiltrates and currently on baseline O2 requirements Continue dual nebs, azithromycin Day 3 Continue prednisone (2) DVT prophylaxis Current Visit: Yes Status: Chronic Assessment and plan: Subcutaneous heparin (3) DM type 2, uncontrolled, with neuropathy Current Visit: Yes Status: Chronic Assessment and plan: DM 2 with hyperglycemia and neuropathy Uncontrolled , A1C 8.8 Possibly exacerbated by use of steroids. Levemir, add prandial insulin, FS ACHS, ADA diet (4) Hypertension Current Visit: Yes Status: Chronic Assessment and plan: Now controlled. Continue current medications. Qualifiers: Hypertension type: unspecified Qualified Code(s): I10 - Essential (primary ) hypertension (5) GERD (gastroesophageal reflux disease) Current Visit: Yes Status: Chronic Assessment and plan: Continue H2 samina Qualifiers: Esophagitis presence: esophagitis presence not specified Qualified Code(s) : K21.9 - Gastro-esophageal reflux disease without esophagitis (6) Tachycardia Current Visit: Yes Status: Chronic Assessment and plan: Acute and chronic sinus tachycardia Patient admits to some chest tightness, feeling of rapid heart rate Initial and repeat EKG show sinus Tachycardia without evidence of ischemic changes, troponin negative ECHO 04/2017 with preserved EF Continue curent dose of BB Cardio eval noted (7) Obesity (BMI 30.0-34.9) Current Visit: Yes Status: Chronic Assessment and plan: BMI of 30.6 - Time Spent With Patient Total time spent is greater than 50% in coordination of care (as documented) at patient's floor/unit and/or counseling patient: - Subjective Interval history: Seen and examined at the bedside with family. Wheezing diffusely. No new complaints. Cardiology evaluation noted and appreciated. Shows social work evaluation noted, patient has resources to obtain medications at the cheaper rate. - Constitutional Vitals: Temp Pulse Resp BP Pulse Ox 97.8 F 66 16 121/55 97 07/02/17 07:09 07/02/17 07:09 07/02/17 07:33 07/02/17 07:09 07/02/17 07:33 General appearance: Present: mild distress, A&O X 3, no acute distress - Head Head exam: Present: atraumatic, normocephalic - Eye Eye exam: Present: PERRL, conjuntiva pink, sclera anicteric Pupils: Present: PERRL - Neck Neck exam general surgery: Present: supple, trachea midline. Absent: lymphadenopathy - Respiratory Respiratory exam: Present: wheezes, tachypnea. Absent: rales - Cardiovascular Cardiovascular exam: Present: RRR, +S1, +S2, tachycardia. Absent: diastolic murmur, gallop, rubs, systolic murmur - GI/Abdominal GI/Abdominal exam: Present: normal bowel sounds, soft, no peritoneal signs. Absent: distended, tenderness - Extremities Exam Extremities exam: Present: warm, radial pulses palpable and symmetrical. Absent : calf tenderness, cyanotic, pedal edema - Neurological Exam Neurological exam: Present: alert, CN II-XII intact, oriented X3, no focal deficits. Absent: pronater drift, facial droop, speech deficit - Skin Skin exam: Present: dry, intact Internal Medicine: Result - Labs CBC & Chem 7: 07/02/17 04:14 07/02/17 04:14 Labs: Short CBC 07/02/17 Range/Units 04:14 WBC 7.6 D (4.3-11.1) K/mcL Hgb 9.3 L D (11.5-15.4) g/dL Hct 29.8 L (35.3-44.9) % Plt Count 378 (140-400) K/mcL Neutrophils # 5.1 (1.6-8.9) K/mcL BMP 07/02/17 04:14 Sodium 137 Potassium 4.0 Chloride 103 Carbon Dioxide 24 BUN 36 H Creatinine 0.87 Glucose 266 H Calcium 8.5 L - ABG Interpretation ABG results: PT/INR, D-dimer PT 12.4 Seconds (9.4-12.1) H 06/30/17 12:56 Consult Discharge Plan - Plan Referrals: Domitila Lau MD [Primary Care Provider] - 07/07/17 11:00 am
[2017-07-02] MEDS: *HR* Metoprolol 5 MG/5 ML VIAL IVP SCH (20:19)
[2017-07-02] MEDS: amLODIPine 5 MG TABLET PO SCH (20:19)
[2017-07-02] MEDS: Insulin DETEMIR 100 UNIT/ML X5UNITS SQ SCH (20:20)
[2017-07-02] MEDS: Azithromycin 500 MG in D5% in Water 250 ML IVPB SCH (20:22)
[2017-07-03] MEDS: *HR* OxyCODONE/APAP 10/325 TABLET PO PRN ×3 (02:03→18:48)
[2017-07-03] MEDS: Levalbuterol Neb 0.63 MG/3 ML IH SCH ×4 (03:42→19:53)
[2017-07-03] MEDS: Ipratropium/Albuterol Neb 3 ML IH SCH ×6 (03:42→23:33)
[2017-07-03] MEDS: *HR* Heparin 5,000 UNIT/ML VIAL SQ SCH ×3 (05:13→20:38)
[2017-07-03] MEDS: *HR* HYDROcodone/Acet 5/325 mg TABLET PO PRN ×3 (06:46→22:37)
[2017-07-03] MEDS: Loratadine 10 MG TABLET PO SCH (08:18)
[2017-07-03] MEDS: Losartan/HCTZ 50-12.5 TABLET PO SCH (08:18)
[2017-07-03] MEDS: Famotidine 20 MG TABLET PO SCH (08:18)
[2017-07-03] MEDS: Insulin LISPRO 300 UNITS/3 ML VIAL SQ SCH ×6 (08:18→20:39)
[2017-07-03] MEDS: Aspirin Enteric Coated 81 MG Tablet PO SCH (08:18)
[2017-07-03] MEDS: cloNIDine HCl 0.1 MG TABLET PO SCH ×4 (08:19→20:37)
[2017-07-03] MEDS: Metoprolol XL (24 HR) Succ 25 MG TAB.ER.24H PO SCH (08:19)
[2017-07-03] MEDS: predniSONE 20 MG TABLET PO SCH (08:19)
[2017-07-03 09:33] LABS: Basophils % 0.4 %; Eosinophils # 0.1 K/mcL (0.0-0.6); Eosinophils % 0.8 %; Hematocrit 31.1 % (35.3-44.9); Hemoglobin 9.6 g/dL (11.5-15.4); Immature Granulocytes % 1.4 % (0-4); Lymphocytes # 2.7 K/mcL (0.6-4.6); Lymphocytes % 38.2 %; Mean Corpuscular HGB Conc 30.9 g/dL (31.6-35.5); Mean Corpuscular Hemoglobin 27.7 pg (28.0-33.3); Mean Corpuscular Volume 89.6 fL (83.0-100.0); Mean Platelet Volume 9.4 fL (9.4-12.4); Monocytes # 0.7 K/mcL (0.0-1.3); Monocytes % 9.3 %; Neutrophils # 3.6 K/mcL (1.6-8.9); Platelet Count 355 K/mcL (140-400); Red Blood Count 3.47 M/mcL (3.82-4.97); Red Cell Distribution Width 17.2 % (11.5-14.5); Segmented Neutrophils % 49.9 %
[2017-07-03 09:53] LABS: BUN/Creatinine Ratio 44 (6-26); Blood Urea Nitrogen 27 mg/dL (6-20); Calcium 8.4 mg/dL (8.6-10.3); Chloride 105 mEq/L (98-107); Glucose 196 mg/dL (70-105); Osmolality,Calculated 299 (280-300); Potassium 3.9 mEq/L (3.5-5.1); Sodium 139 mEq/L (136-145); eGFR For African Americans > 60 (> 60); eGFR For Non-African Americans > 60 (> 60)
[2017-07-03 10:55] LABS: Carbon Dioxide 24 mEq/L (23-29)
--- NOTE | 2017-07-03 11:35 | Internal Med Progress Note ---
Date of Encounter: 07/03/17 Time of Encounter: 11:35 - Assessment and plan (1) Acute exacerbation of chronic obstructive airways disease Current Visit: Yes Status: Acute Assessment and plan: Admitting CXR negative for infiltrates Has received azithromycin for 3 days Repeat CXR seen, pending official report, no infiltrate Change ab to doxycycline Change prednisone to solumedrol as patient continues to wheeze. continue duonebs O2 is at baseline, continue to monitor (2) DVT prophylaxis Current Visit: Yes Status: Chronic Assessment and plan: Subcutaneous heparin (3) DM type 2, uncontrolled, with neuropathy Current Visit: Yes Status: Chronic Assessment and plan: DM 2 with hyperglycemia and neuropathy Uncontrolled , A1C 8.8 Possibly exacerbated by use of steroids. Levemir, add prandial insulin, FS ACHS, ADA diet (4) Hypertension Current Visit: Yes Status: Chronic Assessment and plan: Now controlled. Continue current medications. Qualifiers: Hypertension type: unspecified Qualified Code(s): I10 - Essential (primary ) hypertension (5) GERD (gastroesophageal reflux disease) Current Visit: Yes Status: Chronic Assessment and plan: Continue H2 samina Qualifiers: Esophagitis presence: esophagitis presence not specified Qualified Code(s) : K21.9 - Gastro-esophageal reflux disease without esophagitis (6) Tachycardia Current Visit: Yes Status: Chronic Assessment and plan: Acute and chronic sinus tachycardia Patient admits to some chest tightness, feeling of rapid heart rate Initial and repeat EKG show sinus Tachycardia without evidence of ischemic changes, troponin negative ECHO 04/2017 with preserved EF Continue curent dose of BB Cardio eval noted-for stress test a.m (7) Obesity (BMI 30.0-34.9) Current Visit: Yes Status: Chronic Assessment and plan: BMI of 30.6 - Time Spent With Patient Total time spent is greater than 50% in coordination of care (as documented) at patient's floor/unit and/or counseling patient: - Subjective Interval history: Seen and examined at the bedside with family. Wheezing diffusely again this a.m , [facility] We will change her steroids to IV and change her antibiotics Repeat CXR ordered Cardiology evaluation noted and appreciated-for stress test a.m Also social work evaluation noted, patient has resources to obtain medications at the cheaper rate. - Constitutional Vitals: Temp Pulse Resp BP Pulse Ox 97.5 F L 85 18 144/81 97 07/03/17 07:34 07/03/17 07:34 07/03/17 07:47 07/03/17 07:34 07/03/17 07:52 General appearance: Present: mild distress, A&O X 3, no acute distress - Head Head exam: Present: atraumatic, normocephalic - Eye Eye exam: Present: PERRL, conjuntiva pink, sclera anicteric Pupils: Present: PERRL - Neck Neck exam general surgery: Present: supple, trachea midline. Absent: lymphadenopathy - Respiratory Respiratory exam: Present: wheezes, tachypnea. Absent: rales, rhonchi, stridor - Cardiovascular Cardiovascular exam: Present: RRR, +S1, +S2. Absent: diastolic murmur, gallop, rubs, systolic murmur - GI/Abdominal GI/Abdominal exam: Present: normal bowel sounds, soft, no peritoneal signs. Absent: distended, tenderness - Extremities Exam Extremities exam: Present: warm, radial pulses palpable and symmetrical. Absent : calf tenderness, cyanotic, pedal edema - Neurological Exam Neurological exam: Present: alert, CN II-XII intact, oriented X3, no focal deficits. Absent: pronater drift, facial droop, speech deficit - Skin Skin exam: Present: dry, intact Internal Medicine: Result - Labs CBC & Chem 7: 07/03/17 09:14 07/03/17 09:14 Labs: Short CBC 07/03/17 Range/Units 09:14 WBC 7.2 (4.3-11.1) K/mcL Hgb 9.6 L (11.5-15.4) g/dL Hct 31.1 L (35.3-44.9) % Plt Count 355 (140-400) K/mcL Neutrophils # 3.6 (1.6-8.9) K/mcL BMP 07/03/17 09:14 Sodium 139 Potassium 3.9 Chloride 105 Carbon Dioxide 24 BUN 27 H Creatinine 0.62 Glucose 196 H Calcium 8.4 L - ABG Interpretation ABG results: PT/INR, D-dimer PT 12.4 Seconds (9.4-12.1) H 06/30/17 12:56 Consult Discharge Plan - Plan Referrals: Domitila Lau MD [Primary Care Provider] - 07/07/17 11:00 am
[2017-07-03] MEDS: MethylPREDNISolone 40 MG/ML VIAL IVP SCH (15:53)
[2017-07-03] MEDS: Ondansetron ODT 4 MG TAB.RAPDIS PO PRN (15:53)
[2017-07-03] MEDS: Doxycycline 100 MG in 0.9 % Sodium Chloride Mini Bag 100 ML IVPB SCH (17:36)
[2017-07-03] MEDS: amLODIPine 5 MG TABLET PO SCH (20:38)
[2017-07-03] MEDS: Insulin DETEMIR 100 UNIT/ML X5UNITS SQ SCH (20:38)
[2017-07-04] MEDS: MethylPREDNISolone 40 MG/ML VIAL IVP SCH ×4 (00:56→23:35)
[2017-07-04 03:11] LABS: Basophils % 0.2 %; Hematocrit 30.1 % (35.3-44.9); Hemoglobin 9.5 g/dL (11.5-15.4); Immature Granulocytes % 2.2 % (0-4); Lymphocytes # 0.6 K/mcL (0.6-4.6); Lymphocytes % 12.3 %; Mean Corpuscular HGB Conc 31.6 g/dL (31.6-35.5); Mean Corpuscular Hemoglobin 27.6 pg (28.0-33.3); Mean Corpuscular Volume 87.5 fL (83.0-100.0); Mean Platelet Volume 9.9 fL (9.4-12.4); Monocytes # 0.2 K/mcL (0.0-1.3); Neutrophils # 4.2 K/mcL (1.6-8.9); Nucleated Red Blood Cells 0.4 /100 WBC (0); Platelet Count 336 K/mcL (140-400); Red Blood Count 3.44 M/mcL (3.82-4.97); Red Cell Distribution Width 16.8 % (11.5-14.5); Segmented Neutrophils % 82.3 %
[2017-07-04 03:30] LABS: BUN/Creatinine Ratio 32 (6-26); Blood Urea Nitrogen 21 mg/dL (6-20); Calcium 8.7 mg/dL (8.6-10.3); Carbon Dioxide 30 mEq/L (23-29); Chloride 102 mEq/L (98-107); Glucose 236 mg/dL (70-105); Osmolality,Calculated 295 (280-300); Potassium 4.6 mEq/L (3.5-5.1); Sodium 137 mEq/L (136-145); eGFR For African Americans > 60 (> 60); eGFR For Non-African Americans > 60 (> 60)
[2017-07-04] MEDS: *HR* OxyCODONE/APAP 10/325 TABLET PO PRN ×3 (03:40→21:13)
[2017-07-04] MEDS: Ipratropium/Albuterol Neb 3 ML IH SCH ×5 (04:43→20:04)
[2017-07-04] MEDS: Levalbuterol Neb 0.63 MG/3 ML IH SCH ×2 (04:44→07:47)
--- NOTE | 2017-07-04 05:46 | Electrocardiograph Report ---
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
--- NOTE | 2017-07-04 05:55 | Electrocardiograph Report ---
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
[2017-07-04] MEDS: Doxycycline 100 MG in 0.9 % Sodium Chloride Mini Bag 100 ML IVPB SCH ×2 (06:08→18:37)
[2017-07-04] MEDS: *HR* Heparin 5,000 UNIT/ML VIAL SQ SCH ×3 (06:08→21:14)
[2017-07-04] MEDS ORDERED: Regadenoson 0.4 MG/5 ML SYRINGE IVP ONE (06:41)
[2017-07-04 07:17] LABS: Troponin I < 0.03 ng/mL (< 0.04)
[2017-07-04] MEDS: Losartan/HCTZ 50-12.5 TABLET PO SCH (08:27)
[2017-07-04] MEDS: Famotidine 20 MG TABLET PO SCH (08:27)
[2017-07-04] MEDS: cloNIDine HCl 0.1 MG TABLET PO SCH ×4 (08:27→21:13)
[2017-07-04] MEDS: Aspirin Enteric Coated 81 MG Tablet PO SCH (08:28)
[2017-07-04] MEDS: Loratadine 10 MG TABLET PO SCH (08:28)
[2017-07-04] MEDS: *HR* HYDROcodone/Acet 5/325 mg TABLET PO PRN ×3 (08:29→23:43)
[2017-07-04] MEDS: Ondansetron ODT 4 MG TAB.RAPDIS PO PRN ×2 (08:29→18:44)
--- NOTE | 2017-07-04 08:32 | Internal Med Progress Note ---
<Ruddy Vaca - Last Filed: 07/04/17 14:51> Date of Encounter: 07/04/17 Time of Encounter: 09:30 - Assessment and plan (1) Acute exacerbation of chronic obstructive airways disease Current Visit: Yes Status: Acute Assessment and plan: Admitting CXR negative for infiltrates Has received azithromycin for 4 days Repeat CXR seen, pending official report, no infiltrate Change ab to doxycycline Change prednisone to solumedrol as patient continues to wheeze. continue duonebs O2 is at baseline, continue to monitor (2) DM type 2, uncontrolled, with neuropathy Current Visit: Yes Status: Chronic Assessment and plan: DM 2 with hyperglycemia and neuropathy Uncontrolled, A1C 8.8. Improving today Possibly exacerbated by use of steroids Levemir, add prandial insulin, FS ACHS, ADA diet (3) Hypertension Current Visit: Yes Status: Chronic Assessment and plan: Continues to be in poor control today Increase Toprol to 50mg Increase Amlodipine to 10mg Continue PRN Labetalol for SBP >160 Qualifiers: Hypertension type: unspecified Qualified Code(s): I10 - Essential (primary ) hypertension (4) GERD (gastroesophageal reflux disease) Current Visit: Yes Status: Chronic Assessment and plan: Hx of non-bleeding gastric ulcer 10/2016, lost to follow-up Continue Omeprazole BID Stop Pepcid Qualifiers: Esophagitis presence: esophagitis presence not specified Qualified Code(s) : K21.9 - Gastro-esophageal reflux disease without esophagitis (5) Tachycardia Current Visit: Yes Status: Chronic Assessment and plan: Acute and chronic sinus tachycardia Patient admits to some chest tightness, feeling of rapid heart rate Initial and repeat EKG show sinus Tachycardia without evidence of ischemic changes, troponin negative ECHO 04/2017 with preserved EF Nuclear stress test today is negative for ischemia Increase Toprol to 50mg, which has controlled heart rate (6) DVT prophylaxis Current Visit: Yes Status: Chronic Assessment and plan: Subcutaneous heparin (7) Obesity (BMI 30.0-34.9) Current Visit: Yes Status: Chronic Assessment and plan: BMI of 30.9 - Time Spent With Patient Total time spent is greater than 50% in coordination of care (as documented) at patient's floor/unit and/or counseling patient: - Subjective Interval history: The patient is seen and examined at bedside. She says she's feeling significantly worse than she was previously, especially in regard to her breathing. She says that she's been feeling exceptionally wheezy, and can feel that her heart rate is rapid. She is having some cough, however it is non- productive in nature. - Constitutional Vitals: Temp Pulse Resp BP Pulse Ox 97.7 F 91 15 178/95 95 07/04/17 07:39 07/04/17 07:39 07/04/17 07:47 07/04/17 07:39 07/04/17 07:47 General appearance: Present: mild distress, A&O X 3, no acute distress Exam: Gen: Vitals noted. No acute distress. HEENT: PERRL/EOMI, oropharynx clear, Normocephalic, atraumatic Neck: Supple. No adenopathy. Cardiac: RRR, no murmur, +S1/S2 Pulmonary: more pronouced wheezes globally, diminished lung sounds particularly in the bases Abdomen: soft, nontender, BS noted, no guarding Back: Nontender throughout. MSK: ROM intact, no joint swelling noted Extremities: 1+ BLE edema, nontender calf, no cyanosis or clubbing Neuro: A&Ox3, moves all extremities, no focal deficits Psych: Appropriate mood and behavior Internal Medicine: Result - Labs CBC & Chem 7: 07/04/17 02:47 07/04/17 02:47 Labs: Short CBC 07/03/17 07/04/17 Range/Units 09:14 02:47 WBC 7.2 5.1 (4.3-11.1) K/mcL Hgb 9.6 L 9.5 L (11.5-15.4) g/dL Hct 31.1 L 30.1 L (35.3-44.9) % Plt Count 355 336 (140-400) K/mcL Neutrophils # 3.6 4.2 (1.6-8.9) K/mcL BMP 07/03/17 07/04/17 09:14 02:47 Sodium 139 137 Potassium 3.9 4.6 Chloride 105 102 Carbon Dioxide 24 30 H BUN 27 H 21 H Creatinine 0.62 0.66 Glucose 196 H 236 H Calcium 8.4 L 8.7 Cardiac Enzymes 07/04/17 Range/Units 06:45 Troponin I < 0.03 (< 0.04) ng/mL - ABG Interpretation ABG results: PT/INR, D-dimer PT 12.4 Seconds (9.4-12.1) H 06/30/17 12:56 - Impressions Impressions Chest X-Ray 07/03/17 11:33 IMPRESSION: Stable chest D/ / Ruddy Christian MD / Ruddy Christian MD Interpreting Provider: Ruddy Christian MD Consult Discharge Plan - Plan Referrals: Domitila Lau MD [Primary Care Provider] - 07/07/17 11:00 am <Obed Krause T - Last Filed: 07/04/17 15:33> Date of Encounter: 07/04/17 - Assessment and plan (1) Acute exacerbation of chronic obstructive airways disease Current Visit: Yes Status: Acute (2) DVT prophylaxis Current Visit: Yes Status: Chronic (3) DM type 2, uncontrolled, with neuropathy Current Visit: Yes Status: Chronic (4) Hypertension Current Visit: Yes Status: Chronic Qualifiers: Hypertension type: unspecified Qualified Code(s): I10 - Essential (primary ) hypertension (5) GERD (gastroesophageal reflux disease) Current Visit: Yes Status: Chronic Qualifiers: Esophagitis presence: esophagitis presence not specified Qualified Code(s) : K21.9 - Gastro-esophageal reflux disease without esophagitis (6) Tachycardia Current Visit: Yes Status: Chronic (7) Obesity (BMI 30.0-34.9) Current Visit: Yes Status: Chronic - Time Spent With Patient Total time spent is greater than 50% in coordination of care (as documented) at patient's floor/unit and/or counseling patient: - Constitutional Vitals: Temp Pulse Resp BP Pulse Ox 97.7 F 89 15 175/95 96 07/04/17 14:39 07/04/17 14:39 07/04/17 14:39 07/04/17 14:39 07/04/17 14:39 Internal Medicine: Result - Labs CBC & Chem 7: 07/04/17 02:47 07/04/17 02:47 - ABG Interpretation ABG results: PT/INR, D-dimer PT 12.4 Seconds (9.4-12.1) H 06/30/17 12:56 - Attending Attestation I examined this patient and my medical decision-making was reviewed with the Resident Physician on 07/04/17. I agree with the documented findings, disposition and treatment plan as described except to the extent set forth below.
[2017-07-04] MEDS: Insulin LISPRO 300 UNITS/3 ML VIAL SQ SCH ×7 (08:34→21:14)
[2017-07-04] MEDS: Metoprolol XL (24 HR) Succ 25 MG TAB.ER.24H PO SCH (09:24)
[2017-07-04 12:20] LABS: % Iron Saturation 5 % (15-50); Ferritin 23 ng/ml (10-120); Iron 24 mcg/dL (50-170); Transferrin 355 mg/dL (203-362)
[2017-07-04] MEDS ORDERED: Levalbuterol Neb 0.63 MG/3 ML IH PRN (15:00)
[2017-07-04] MEDS: amLODIPine 5 MG TABLET PO SCH (21:13)
[2017-07-04] MEDS: Insulin DETEMIR 100 UNIT/ML X5UNITS SQ SCH (21:14)
[2017-07-05] MEDS: Ipratropium/Albuterol Neb 3 ML IH SCH ×7 (00:13→23:28)
[2017-07-05 05:00] LABS: Basophils % 0.6 %; Hematocrit 32.5 % (35.3-44.9); Hemoglobin 9.9 g/dL (11.5-15.4); Immature Granulocytes % 4.5 % (0-4); Lymphocytes # 0.8 K/mcL (0.6-4.6); Lymphocytes % 12.1 %; Mean Corpuscular HGB Conc 30.5 g/dL (31.6-35.5); Mean Corpuscular Volume 88.6 fL (83.0-100.0); Mean Platelet Volume 10.1 fL (9.4-12.4); Monocytes # 0.2 K/mcL (0.0-1.3); Monocytes % 3.2 %; Nucleated Red Blood Cells 0.8 /100 WBC (0); Platelet Count 366 K/mcL (140-400); Red Blood Count 3.67 M/mcL (3.82-4.97); Red Cell Distribution Width 16.4 % (11.5-14.5); Segmented Neutrophils % 79.6 %
[2017-07-05 05:24] LABS: Alanine Aminotransferase 9 Units/L (7-52); Albumin 3.9 g/dL (3.5-5.7); Albumin/Globulin Ratio 1.9 (1.1-2.2); Alkaline Phosphatase 84 Units/L (34-104); Aspartate Amino Transferase 7 Units/L (13-39); BUN/Creatinine Ratio 36 (6-26); Bilirubin,Total 0.1 mg/dL (0.3-1.0); Blood Urea Nitrogen 29 mg/dL (6-20); Calcium 8.9 mg/dL (8.6-10.3); Carbon Dioxide 30 mEq/L (23-29); Chloride 98 mEq/L (98-107); Globulin 2.1 g/dL (2.4-3.5); Glucose 333 mg/dL (70-105); Osmolality,Calculated 299 (280-300); Potassium 4.6 mEq/L (3.5-5.1); Sodium 135 mEq/L (136-145); eGFR For African Americans > 60 (> 60); eGFR For Non-African Americans > 60 (> 60)
[2017-07-05] MEDS: *HR* Heparin 5,000 UNIT/ML VIAL SQ SCH ×2 (05:33→16:20)
[2017-07-05] MEDS: *HR* HYDROcodone/Acet 5/325 mg TABLET PO PRN ×2 (05:34→14:50)
[2017-07-05] MEDS: Doxycycline 100 MG in 0.9 % Sodium Chloride Mini Bag 100 ML IVPB SCH (05:35)
[2017-07-05] MEDS: cloNIDine HCl 0.1 MG TABLET PO SCH ×4 (08:18→19:41)
[2017-07-05] MEDS: Metoprolol XL (24 HR) Succ 25 MG TAB.ER.24H PO SCH (08:18)
[2017-07-05] MEDS: Losartan/HCTZ 50-12.5 TABLET PO SCH (08:18)
[2017-07-05] MEDS: Loratadine 10 MG TABLET PO SCH (08:19)
[2017-07-05] MEDS: Aspirin Enteric Coated 81 MG Tablet PO SCH (08:19)
[2017-07-05] MEDS: Insulin LISPRO 300 UNITS/3 ML VIAL SQ SCH ×7 (08:19→19:45)
--- NOTE | 2017-07-05 08:19 | Internal Med Progress Note ---
<Ruddy Vaca - Last Filed: 07/05/17 17:14> Date of Encounter: 07/05/17 Time of Encounter: 08:40 - Assessment and plan (1) Acute exacerbation of chronic obstructive airways disease Current Visit: Yes Status: Acute Assessment and plan: Admitting CXR negative for infiltrates Has received azithromycin for 4 days Recieved two days doxycycline Sputum culture is positive for Gram negative bacteria, however may be contaminant continue duonebs O2 is at baseline, continue to monitor (2) DM type 2, uncontrolled, with neuropathy Current Visit: Yes Status: Chronic Assessment and plan: DM 2 with hyperglycemia and neuropathy Uncontrolled, A1C 8.8. Improving today Possibly exacerbated by use of steroids Levemir, add prandial insulin, FS ACHS, ADA diet (3) Hypertension Current Visit: Yes Status: Chronic Assessment and plan: Controlled better today continue current medication regimen Qualifiers: Hypertension type: unspecified Qualified Code(s): I10 - Essential (primary ) hypertension (4) GERD (gastroesophageal reflux disease) Current Visit: Yes Status: Chronic Assessment and plan: Hx of non-bleeding gastric ulcer 10/2016, lost to follow-up Continue Omeprazole BID Stop Pepcid Qualifiers: Esophagitis presence: esophagitis presence not specified Qualified Code(s) : K21.9 - Gastro-esophageal reflux disease without esophagitis (5) Tachycardia Current Visit: Yes Status: Chronic Assessment and plan: Acute and chronic sinus tachycardia Patient admits to some chest tightness, feeling of rapid heart rate Initial and repeat EKG show sinus Tachycardia without evidence of ischemic changes, troponin negative ECHO 04/2017 with preserved EF Nuclear stress test today is negative for ischemia Increased Toprol to 50mg, which has controlled heart rate (6) DVT prophylaxis Current Visit: Yes Status: Chronic Assessment and plan: Subcutaneous heparin (7) Obesity (BMI 30.0-34.9) Current Visit: Yes Status: Chronic Assessment and plan: BMI of 30.9 - Time Spent With Patient Total time spent is greater than 50% in coordination of care (as documented) at patient's floor/unit and/or counseling patient: - Subjective Interval history: The patient is seen and examined at bedside. She has had some improvement from yesterday in regard to her breathing, however she feels as though she has had trouble taking an extremely deep breath as she usually is able to do. - Constitutional Vitals: Temp Pulse Resp BP Pulse Ox 97.9 F 71 16 165/83 93 07/05/17 07:20 07/05/17 07:20 07/05/17 07:33 07/05/17 07:20 07/05/17 07:33 General appearance: Present: mild distress, A&O X 3, no acute distress Exam: Gen: Vitals noted. No acute distress. HEENT: Normocephalic, atraumatic Neck: Supple. No adenopathy. Cardiac: RRR, no murmur, +S1/S2 Pulmonary: more pronouced wheezes globally, diminished lung sounds particularly in the bases with generally poor airflow Abdomen: soft, nontender, BS noted, no guarding Back: Nontender throughout. MSK: ROM intact, no joint swelling noted Extremities: 1+ BLE edema, nontender calf, no cyanosis or clubbing Neuro: A&Ox3, moves all extremities, no focal deficits Psych: Appropriate mood and behavior Internal Medicine: Result - Labs CBC & Chem 7: 07/05/17 04:38 07/05/17 04:38 Labs: Short CBC 07/05/17 Range/Units 04:38 WBC 6.3 (4.3-11.1) K/mcL Hgb 9.9 L (11.5-15.4) g/dL Hct 32.5 L (35.3-44.9) % Plt Count 366 (140-400) K/mcL Neutrophils # 5.0 (1.6-8.9) K/mcL BMP 07/05/17 04:38 Sodium 135 L Potassium 4.6 Chloride 98 Carbon Dioxide 30 H BUN 29 H Creatinine 0.80 Glucose 333 H Calcium 8.9 Liver Function 07/05/17 Range/Units 04:38 Total Bilirubin 0.1 L (0.3-1.0) mg/dL AST 7 L (13-39) Units/L ALT 9 (7-52) Units/L Alkaline Phosphatase 84 (34-104) Units/L Albumin 3.9 (3.5-5.7) g/dL - ABG Interpretation ABG results: PT/INR, D-dimer PT 12.4 Seconds (9.4-12.1) H 06/30/17 12:56 Consult Discharge Plan - Plan Referrals: Domitila Lau MD [Primary Care Provider] - 07/07/17 11:00 am <Diego Mullins - Last Filed: 07/05/17 18:32> Date of Encounter: 07/05/17 - Assessment and plan (1) Acute exacerbation of chronic obstructive airways disease Current Visit: Yes Status: Acute (2) DM type 2, uncontrolled, with neuropathy Current Visit: Yes Status: Chronic (3) Hypertension Current Visit: Yes Status: Chronic Qualifiers: Hypertension type: essential hypertension Qualified Code(s): I10 - Essential (primary) hypertension (4) GERD (gastroesophageal reflux disease) Current Visit: Yes Status: Chronic Qualifiers: Esophagitis presence: esophagitis presence not specified Qualified Code(s) : K21.9 - Gastro-esophageal reflux disease without esophagitis (5) Tachycardia Current Visit: Yes Status: Chronic (6) Obesity (BMI 30.0-34.9) Current Visit: Yes Status: Chronic (7) DVT prophylaxis Current Visit: Yes Status: Chronic (8) Chronic respiratory failure Current Visit: No Status: Chronic Qualifiers: Respiratory failure complication: hypoxia Qualified Code(s): J96.11 - Chronic respiratory failure with hypoxia (9) Diabetes mellitus Current Visit: No Status: Chronic Qualifiers: Diabetes mellitus type: type 2 Diabetes mellitus intermediate accountant insulin use: with intermediate accountant use Diabetes mellitus complication status: with hyperglycemia Qualified Code(s): E11.65 - Type 2 diabetes mellitus with hyperglycemia; 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; Z79.4 - senior living (current) 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; Z79.4 - senior living (current) 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; Z79.4 - 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 ) 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 (10) Anemia Current Visit: Yes Status: Acute Qualifiers: Anemia type: other cause Other causes of anemia: chronic disease, other Qualified Code(s): D63.8 - Anemia in other chronic diseases classified elsewhere - Time Spent With Patient Total time spent is greater than 50% in coordination of care (as documented) at patient's floor/unit and/or counseling patient: - Constitutional Vitals: Temp Pulse Resp BP Pulse Ox 98.6 F 66 15 140/90 99 07/05/17 16:37 07/05/17 16:37 07/05/17 16:37 07/05/17 16:37 07/05/17 16:37 Internal Medicine: Result - Labs CBC & Chem 7: 07/05/17 04:38 07/05/17 04:38 Labs: Short CBC 07/05/17 Range/Units 04:38 WBC 6.3 (4.3-11.1) K/mcL Hgb 9.9 L (11.5-15.4) g/dL Hct 32.5 L (35.3-44.9) % Plt Count 366 (140-400) K/mcL Neutrophils # 5.0 (1.6-8.9) K/mcL BMP 07/05/17 04:38 Sodium 135 L Potassium 4.6 Chloride 98 Carbon Dioxide 30 H BUN 29 H Creatinine 0.80 Glucose 333 H Calcium 8.9 Liver Function 07/05/17 Range/Units 04:38 Total Bilirubin 0.1 L (0.3-1.0) mg/dL AST 7 L (13-39) Units/L ALT 9 (7-52) Units/L Alkaline Phosphatase 84 (34-104) Units/L Albumin 3.9 (3.5-5.7) g/dL - ABG Interpretation ABG results: PT/INR, D-dimer PT 12.4 Seconds (9.4-12.1) H 06/30/17 12:56 - Attending Attestation I examined this patient and my medical decision-making was reviewed with the Resident Physician on 07/05/17. I agree with the documented findings, disposition and treatment plan as described except to the extent set forth below. Ms Ren is currently admitted for acute exac COPD. She remains moderate to high risk due to potential for worsening clinical and respiratory status. Ms Ren is still having a lot of breathing difficulty. Sputum has Stenotrophomonas. No fever or chills. Still with cough. No CP. Exam alert Mild resp distress at rest. Mucus membranes dry Heart reg Diffuse end exp wheeze heard Abd soft I/P 1. COPD 2. anemia Further diagnoses and plan as above.
[2017-07-05] MEDS: MethylPREDNISolone 40 MG/ML VIAL IVP SCH ×2 (08:20→16:20)
[2017-07-05] MEDS: Ondansetron ODT 4 MG TAB.RAPDIS PO PRN (09:22)
[2017-07-05] MEDS: *HR* OxyCODONE/APAP 10/325 TABLET PO PRN ×2 (09:22→19:43)
[2017-07-05] MEDS ORDERED: Levofloxacin 750 MG/150 ML 750 MG/150 ML BAG IVPB ONE (15:10)
[2017-07-05] MEDS: Furosemide 40 MG TABLET PO SCH (16:21)
[2017-07-05] MEDS: amLODIPine 5 MG TABLET PO SCH (19:41)
[2017-07-05] MEDS: Insulin DETEMIR 100 UNIT/ML X5UNITS SQ SCH (20:35)
[2017-07-06] MEDS: *HR* Heparin 5,000 UNIT/ML VIAL SQ SCH ×4 (00:23→20:57)
[2017-07-06] MEDS: MethylPREDNISolone 40 MG/ML VIAL IVP SCH ×2 (00:23→08:12)
[2017-07-06] MEDS: *HR* HYDROcodone/Acet 5/325 mg TABLET PO PRN ×3 (00:31→20:57)
[2017-07-06] MEDS: Ipratropium/Albuterol Neb 3 ML IH SCH ×6 (03:50→23:05)
[2017-07-06 04:32] LABS: Hematocrit 33.5 % (35.3-44.9); Hemoglobin 10.3 g/dL (11.5-15.4); Lymphocytes # 0.9 K/mcL (0.6-4.6); Mean Corpuscular HGB Conc 30.7 g/dL (31.6-35.5); Mean Corpuscular Hemoglobin 26.7 pg (28.0-33.3); Mean Corpuscular Volume 86.8 fL (83.0-100.0); Mean Platelet Volume 9.7 fL (9.4-12.4); Nucleated Red Blood Cells 0.7 /100 WBC (0); Platelet Count 382 K/mcL (140-400); Red Blood Count 3.86 M/mcL (3.82-4.97); Red Cell Distribution Width 16.3 % (11.5-14.5)
[2017-07-06] MEDS: *HR* OxyCODONE/APAP 10/325 TABLET PO PRN ×2 (04:48→15:46)
[2017-07-06] MEDS: Ondansetron ODT 4 MG TAB.RAPDIS PO PRN (04:48)
[2017-07-06 04:50] LABS: BUN/Creatinine Ratio 50 (6-26); Blood Urea Nitrogen 36 mg/dL (6-20); Calcium 9.2 mg/dL (8.6-10.3); Carbon Dioxide 35 mEq/L (23-29); Chloride 94 mEq/L (98-107); Glucose 300 mg/dL (70-105); Osmolality,Calculated 306 (280-300); Potassium 4.6 mEq/L (3.5-5.1); Sodium 138 mEq/L (136-145); eGFR For African Americans > 60 (> 60); eGFR For Non-African Americans > 60 (> 60)
[2017-07-06 05:39] LABS: Monocytes # 0.2 K/mcL (0.0-1.3); Neutrophils # 7.9 K/mcL (1.6-8.9); Platelet Estimate Normal (Normal); Toxic Granulation Present (Not Present)
[2017-07-06 05:40] LABS: Hypochromasia Present (Not Present); Large Platelets Present (Not Present); Macrocytosis Present (Not Present); Reactive Lymphocytes Present (Not Present)
[2017-07-06] MEDS: Insulin LISPRO 300 UNITS/3 ML VIAL SQ SCH ×7 (08:10→20:58)
[2017-07-06] MEDS: Losartan/HCTZ 50-12.5 TABLET PO SCH (08:11)
[2017-07-06] MEDS: Aspirin Enteric Coated 81 MG Tablet PO SCH (08:11)
[2017-07-06] MEDS: Metoprolol XL (24 HR) Succ 25 MG TAB.ER.24H PO SCH (08:11)
[2017-07-06] MEDS: Loratadine 10 MG TABLET PO SCH (08:12)
[2017-07-06] MEDS: Furosemide 40 MG TABLET PO SCH (08:12)
[2017-07-06] MEDS: cloNIDine HCl 0.1 MG TABLET PO SCH ×4 (08:15→20:58)
--- NOTE | 2017-07-06 08:40 | Internal Med Progress Note ---
<Ruddy Vaca - Last Filed: 07/06/17 17:05> Date of Encounter: 07/06/17 Time of Encounter: 08:50 - Assessment and plan (1) Acute exacerbation of chronic obstructive airways disease Current Visit: Yes Status: Acute Assessment and plan: Admitting CXR negative for infiltrates Has received azithromycin for 4 days Sputum culture is positive for Stenotrophomonas O2 is at baseline, continue to monitor Started patient on Levaquin yesterday per sensitivities continue duonebs Likely DC on PO Levaquin tomorrow (2) DM type 2, uncontrolled, with neuropathy Current Visit: Yes Status: Chronic Assessment and plan: DM 2 with hyperglycemia and neuropathy Uncontrolled, A1C 8.8. Improving today Possibly exacerbated by use of steroids Levemir, add prandial insulin, FS ACHS, ADA diet (3) Hypertension Current Visit: Yes Status: Chronic Assessment and plan: Controlled better today continue current medication regimen Qualifiers: Hypertension type: essential hypertension Qualified Code(s): I10 - Essential (primary) hypertension (4) Tachycardia Current Visit: Yes Status: Chronic Assessment and plan: Acute and chronic sinus tachycardia Patient admits to some chest tightness, feeling of rapid heart rate Initial and repeat EKG show sinus Tachycardia without evidence of ischemic changes, troponin negative ECHO 04/2017 with preserved EF Nuclear stress test today is negative for ischemia Increased Toprol to 50mg, which has controlled heart rate (5) GERD (gastroesophageal reflux disease) Current Visit: Yes Status: Chronic Assessment and plan: Hx of non-bleeding gastric ulcer 10/2016, lost to follow-up Continue Omeprazole BID Stop Pepcid Qualifiers: Esophagitis presence: esophagitis presence not specified Qualified Code(s) : K21.9 - Gastro-esophageal reflux disease without esophagitis (6) DVT prophylaxis Current Visit: Yes Status: Chronic Assessment and plan: Subcutaneous heparin (7) Obesity (BMI 30.0-34.9) Current Visit: Yes Status: Chronic Assessment and plan: BMI of 30.9 - Time Spent With Patient Total time spent is greater than 50% in coordination of care (as documented) at patient's floor/unit and/or counseling patient: - Subjective Interval history: The patient is seen and examined at bedside. She has had some improvement from yesterday in regard to her breathing but she says that it's difficult to take a deep breath. She says that she is afraid to leave before she is feeling totally well. - Constitutional Vitals: Temp Pulse Resp BP Pulse Ox 97.6 F 72 18 156/80 100 07/06/17 07:56 07/06/17 07:56 07/06/17 07:56 07/06/17 07:56 07/06/17 07:56 General appearance: Present: mild distress, A&O X 3, no acute distress Exam: Gen: Vitals noted. No acute distress. HEENT: Normocephalic, atraumatic Neck: Supple. No adenopathy. Cardiac: RRR, no murmur, +S1/S2 Pulmonary: Some moderate wheezes b/l, however significantly improved Abdomen: soft, nontender, BS noted, no guarding MSK: ROM intact, no joint swelling noted Extremities: Trace BLE edema, nontender calf, no cyanosis or clubbing Neuro: A&Ox3, moves all extremities, no focal deficits Psych: Appropriate mood and behavior Internal Medicine: Result - Labs CBC & Chem 7: 07/06/17 04:00 07/06/17 04:00 Labs: Short CBC 07/06/17 Range/Units 04:00 WBC 9.0 (4.3-11.1) K/mcL Hgb 10.3 L (11.5-15.4) g/dL Hct 33.5 L (35.3-44.9) % Plt Count 382 (140-400) K/mcL Neutrophils # 7.9 (1.6-8.9) K/mcL BMP 07/06/17 07/06/17 03:00 04:00 Sodium 138 Potassium 4.6 Chloride 94 L Carbon Dioxide 35 H BUN 36 H Creatinine 0.72 Glucose 282 H 300 H Calcium 9.2 - ABG Interpretation ABG results: PT/INR, D-dimer PT 12.4 Seconds (9.4-12.1) H 06/30/17 12:56 Consult Discharge Plan - Plan Referrals: Domitila Lau MD [Primary Care Provider] - 07/07/17 11:00 am <Diego Mullins - Last Filed: 07/06/17 18:33> Date of Encounter: 07/06/17 - Assessment and plan (1) Acute exacerbation of chronic obstructive airways disease Current Visit: Yes Status: Acute (2) DVT prophylaxis Current Visit: Yes Status: Chronic (3) DM type 2, uncontrolled, with neuropathy Current Visit: Yes Status: Chronic (4) Hypertension Current Visit: Yes Status: Chronic Qualifiers: Hypertension type: essential hypertension Qualified Code(s): I10 - Essential (primary) hypertension (5) GERD (gastroesophageal reflux disease) Current Visit: Yes Status: Chronic Qualifiers: Esophagitis presence: esophagitis presence not specified Qualified Code(s) : K21.9 - Gastro-esophageal reflux disease without esophagitis (6) Tachycardia Current Visit: Yes Status: Chronic (7) Obesity (BMI 30.0-34.9) Current Visit: Yes Status: Chronic (8) Respiratory failure Current Visit: No Status: Chronic Qualifiers: Chronicity: chronic Respiratory failure complication: hypoxia Qualified Code(s): J96.11 - Chronic respiratory failure with hypoxia - Time Spent With Patient Total time spent is greater than 50% in coordination of care (as documented) at patient's floor/unit and/or counseling patient: - Constitutional Vitals: Temp Pulse Resp BP Pulse Ox 97.7 F 74 18 131/72 98 07/06/17 15:40 07/06/17 15:40 07/06/17 16:06 07/06/17 15:40 07/06/17 16:06 Internal Medicine: Result - Labs CBC & Chem 7: 07/06/17 04:00 07/06/17 04:00 Labs: Short CBC 07/06/17 Range/Units 04:00 WBC 9.0 (4.3-11.1) K/mcL Hgb 10.3 L (11.5-15.4) g/dL Hct 33.5 L (35.3-44.9) % Plt Count 382 (140-400) K/mcL Neutrophils # 7.9 (1.6-8.9) K/mcL BMP 07/06/17 07/06/17 03:00 04:00 Sodium 138 Potassium 4.6 Chloride 94 L Carbon Dioxide 35 H BUN 36 H Creatinine 0.72 Glucose 282 H 300 H Calcium 9.2 - ABG Interpretation ABG results: PT/INR, D-dimer PT 12.4 Seconds (9.4-12.1) H 06/30/17 12:56 - Attending Attestation I examined this patient and my medical decision-making was reviewed with the Resident Physician on 07/06/17. I agree with the documented findings, disposition and treatment plan as described except to the extent set forth below. Ms Ren is currently admitted for acute exac COPD. She remains moderate to high risk due to potential for worsening clinical and respiratory status. Ms Ren is still having difficulty breathing. No fever or chills. Coughing. No GI issues. Exam alert Mild distress Mucus membranes dry Heart not tachy Wheeze heard Abd soft I/P 1. Exac COPD Further diagnoses and plan as above.
[2017-07-06] MEDS: levoFLOXacin 750 MG TABLET PO SCH (15:46)
[2017-07-06] MEDS: amLODIPine 5 MG TABLET PO SCH (20:58)
[2017-07-06] MEDS: Insulin DETEMIR 100 UNIT/ML X5UNITS SQ SCH (20:58)
[2017-07-07] MEDS: *HR* OxyCODONE/APAP 10/325 TABLET PO PRN ×2 (00:09→08:37)
[2017-07-07] MEDS: Ipratropium/Albuterol Neb 3 ML IH SCH ×3 (03:10→11:26)
[2017-07-07] MEDS: Ondansetron ODT 4 MG TAB.RAPDIS PO PRN ×2 (03:52→12:11)
[2017-07-07] MEDS: *HR* HYDROcodone/Acet 5/325 mg TABLET PO PRN ×2 (03:52→12:12)
[2017-07-07 04:32] LABS: Basophils # 0.1 K/mcL (0.0-0.2); Basophils % 0.9 %; Eosinophils % 0.1 %; Hematocrit 34.4 % (35.3-44.9); Hemoglobin 10.4 g/dL (11.5-15.4); Immature Granulocytes % 5.8 % (0-4); Lymphocytes # 2.6 K/mcL (0.6-4.6); Lymphocytes % 22.9 %; Mean Corpuscular HGB Conc 30.2 g/dL (31.6-35.5); Mean Corpuscular Hemoglobin 26.3 pg (28.0-33.3); Mean Corpuscular Volume 87.1 fL (83.0-100.0); Mean Platelet Volume 10.1 fL (9.4-12.4); Monocytes # 1.3 K/mcL (0.0-1.3); Monocytes % 11.2 %; Neutrophils # 6.7 K/mcL (1.6-8.9); Platelet Count 389 K/mcL (140-400); Red Blood Count 3.95 M/mcL (3.82-4.97); Red Cell Distribution Width 16.5 % (11.5-14.5); Segmented Neutrophils % 59.1 %
[2017-07-07 04:33] LABS: BUN/Creatinine Ratio 45 (6-26); Blood Urea Nitrogen 43 mg/dL (6-20); Calcium 8.7 mg/dL (8.6-10.3); Carbon Dioxide 35 mEq/L (23-29); Chloride 94 mEq/L (98-107); Glucose 149 mg/dL (70-105); Osmolality,Calculated 298 (280-300); Potassium 3.8 mEq/L (3.5-5.1); Sodium 137 mEq/L (136-145); eGFR For African Americans > 60 (> 60); eGFR For Non-African Americans > 60 (> 60)
[2017-07-07 05:09] LABS: Hypochromasia Present (Not Present); Platelet Estimate Normal (Normal); Polychromasia 1+ (Not Present)
[2017-07-07] MEDS: *HR* Heparin 5,000 UNIT/ML VIAL SQ SCH (06:21)
[2017-07-07] MEDS: Insulin LISPRO 300 UNITS/3 ML VIAL SQ SCH ×4 (08:00→12:10)
[2017-07-07] MEDS ORDERED: predniSONE 20 MG TABLET PO SCH (10:00)
--- NOTE | 2017-07-07 10:26 | Discharge Summary ---
<Ruddy Vaca - Last Filed: 07/07/17 14:31> - NOTES TO OUTPATIENT PROVIDER Notes to Outpatient Provider: The fidel was seen at [facility] for COPD exacerbation /pneumonia. She has been treated with IV steroids and mutlitple antibiotics, however her sputum grew stenotrophomonas which is sensative to levaquin. Te patient is stable for discharge at this time, however she has a history of non- compliance due to financial problems. She has been advised to follow-up closely with PCP due to recent readmission and need for continuity, however she expressed concern that she would be unable to afford a doctor's appointment. Date of Encounter: 07/07/17 Time of Encounter: 09:30 - Discharge Diagnosis (1) Acute exacerbation of chronic obstructive airways disease Priority: Primary Status: Acute Assessment and Plan: Admitting CXR negative for infiltrates Recieved azithromycin initially, followed by doxycycline Sputum culture is positive for Stenotrophomonas O2 is at baseline, continue to monitor Started patient on Levaquin continue duonebs + Levaquin on discharge (2) DM type 2, uncontrolled, with neuropathy Priority: Secondary Status: Chronic Assessment and Plan: DM 2 with hyperglycemia and neuropathy Uncontrolled, A1C 8.8. Improving today Possibly exacerbated by use of steroids Will continue the patient on 70/30 Insulin at time of discharge (3) Hypertension Priority: Secondary Status: Chronic Assessment and Plan: Controlled better today continue current medication regimen Qualifiers: Hypertension type: essential hypertension Qualified Code(s): I10 - Essential (primary) hypertension (4) GERD (gastroesophageal reflux disease) Priority: Secondary Status: Chronic Assessment and Plan: Hx of non-bleeding gastric ulcer 10/2016, lost to follow-up Continue Omeprazole BID Stop Pepcid Qualifiers: Esophagitis presence: esophagitis presence not specified Qualified Code(s) : K21.9 - Gastro-esophageal reflux disease without esophagitis (5) Tachycardia Priority: Secondary Status: Chronic Assessment and Plan: Acute and chronic sinus tachycardia Patient admits to some chest tightness, feeling of rapid heart rate Initial and repeat EKG show sinus Tachycardia without evidence of ischemic changes, troponin negative ECHO 04/2017 with preserved EF Nuclear stress test is negative for ischemia Increased Toprol to 50mg, which has controlled heart rate Will likely require adjustment in outpatient setting (6) Respiratory failure Priority: Secondary Status: Resolved Qualifiers: Chronicity: acute on chronic Respiratory failure complication: hypoxia Qualified Code(s): J96.21 - Acute and chronic respiratory failure with hypoxia (7) Obesity (BMI 30.0-34.9) Priority: Secondary Status: Chronic Assessment and Plan: BMI of 30.9 (8) Noncompliance with treatment regimen Priority: Secondary Status: Acute Assessment and Plan: The patient has a history of non-compliance with treatment plans due to lack of health insurance and financial constraints. She does appear to be very conscientious about her health problems, but states that she simply can't afford medications, equipment, and follow-up doctor's appointments. We have attempted to provide the most affordable regimen that is appropriate to the patient, and have provided information on social programs that are available. The patient remains a very high risk for readmission due to this lack of compliance. Hospital course: Ms. Ren is a 57 year old female with history of COPD on home O2, hypertension, diabetes who presented to the hospital with shortness of breath. She was recently admitted 2 weeks ago for COPD exacerbation/pneumonia. Upon presentation, it was found that the patient again had a chest x-ray which was suspicious for infiltration, however she was afebrile and leukocytotic. She was also notes significant bradycardia which is apparently chronic, EKG did show sinus tachycardia. She was admitted for acute exacerbation of COPD and started on IV steroids as well as antibiotics. Initially she did receive azithromycin, however it was later changed to doxycycline when there was affect. Finally, sputum cultures did grow stenotrophomonas and the patient was switched to Levaquin. Due to the fact that she was having significant shortness of breath, a nuclear medical stress test was performed and did not find any ischemic changes. The patient was continued until her wheezing had significantly resolved and she appeared to be less short of breath. At this time she is stable for medical discharge, however I am concerned that she will be high risk for readmission due to the fact that she says she cannot afford any of the medications or treatments that she needs. I did work with social work as well as the patient herself and pharmacist to attempt to find the most affordable treatment plan. The patient says that she is not sure she will be able to follow primary care which will be nick step in this treatment. Discharge discussed with: patient, family, nurse, social work, case management - Time Spent with Patient Total time spent providing and/or coordinating discharge services: Greater than 30 minutes - Discharge Medications Prescriptions: Ipratropium/Albuterol Neb [Duoneb] 3 ml IH Q4HR #1 pack Albuterol Sulfate [Ventolin Hfa] 2 puff IH Q4H PRN #1 inh PRN Reason: Shortness Of Breath amLODIPine [Norvasc] 5 mg PO HS #30 tab Atorvastatin Calcium [Lipitor] 20 mg PO DAILY #30 tablet cloNIDine HCl [Clonidine HCl] 0.3 mg PO QID #90 tablet Ferrous Sulfate 325 mg PO Q2D 30 Days #15 tablet Furosemide [Lasix] 40 mg PO DAILY PRN #30 tablet PRN Reason: Edema Insulin NPH/REG 70/30 [HumuLIN 70/30 VIAL] 45 unit SQ BIDWM #3 vial levoFLOXacin [Levaquin] 750 mg PO DAILY #7 tablet Loratadine [Claritin] 10 mg PO DAILY #30 tablet Losartan/Hydrochlorothiazide [Losartan-Hctz 100-25 mg Tab] 1 tab PO DAILY #30 tablet Metoprolol XL (24 HR) Succ [Toprol XL] 50 mg PO DAILY #30 tab.er.24h Pantoprazole Sodium [Protonix] 40 mg PO BIDWM #60 tablet.dr Potassium Chloride [Klor-Con 10] 10 meq PO DAILY #30 tablet.er predniSONE [PredniSONE] 10 mg PO DAILY #30 tablet Syringe and Needle,Insulin,1Ml [Insulin Syringe] 1 each SQ BID #60 disp.syrin Home Medications: Oxygen 3 l IH AD 07/19/16 [History] Ranitidine HCl [Zantac] 150 mg PO DAILY 11/20/16 [History] Aspirin [Lo-Dose Aspirin EC] 81 mg PO DAILY 01/12/17 [History] Nitroglycerin [Nitrostat] 0.4 mg PO Q5M 06/03/17 [History] Albuterol Sulfate [Ventolin Hfa] 2 puff IH Q4H PRN #1 inh 07/07/17 [Rx] Atorvastatin Calcium [Lipitor] 20 mg PO DAILY #30 tablet 07/07/17 [Rx] Ferrous Sulfate 325 mg PO Q2D 30 Days #15 tablet 07/07/17 [Rx] Furosemide [Lasix] 40 mg PO DAILY PRN #30 tablet 07/07/17 [Rx] Insulin NPH/REG 70/30 [HumuLIN 70/30 VIAL] 45 unit SQ BIDWM #3 vial 07/07/17 [Rx ] Ipratropium/Albuterol Neb [Duoneb] 3 ml IH Q4HR #1 pack 07/07/17 [Rx] Loratadine [Claritin] 10 mg PO DAILY #30 tablet 07/07/17 [Rx] Losartan/Hydrochlorothiazide [Losartan-Hctz 100-25 mg Tab] 1 tab PO DAILY #30 tablet 07/07/17 [Rx] Metoprolol XL (24 HR) Succ [Toprol XL] 50 mg PO DAILY #30 tab.er.24h 07/07/17 [ Rx] Pantoprazole Sodium [Protonix] 40 mg PO BIDWM #60 tablet.dr 07/07/17 [Rx] Potassium Chloride [Klor-Con 10] 10 meq PO DAILY #30 tablet.er 07/07/17 [Rx] Syringe and Needle,Insulin,1Ml [Insulin Syringe] 1 each SQ BID #60 disp.syrin [Rx] amLODIPine [Norvasc] 5 mg PO HS #30 tab 07/07/17 [Rx] cloNIDine HCl [Clonidine HCl] 0.3 mg PO QID #90 tablet 07/07/17 [Rx] levoFLOXacin [Levaquin] 750 mg PO DAILY #7 tablet 07/07/17 [Rx] predniSONE [PredniSONE] 10 mg PO DAILY #30 tablet 07/07/17 [Rx] Allergies/Adverse Reactions: 3 Allergy/AdvReac Type Severity Reaction Status Date / Time NSAIDS (Non-Steroidal Allergy Unknown See Verified 06/30/17 13:03 Anti-Inflamma Comments Penicillins Allergy Unknown Hives Verified 06/30/17 13:03 lisinopril AdvReac Cough Verified 06/30/17 13:03 lorazepam [From Ativan] AdvReac Confusion Verified 06/30/17 13:03 tramadol AdvReac Nausea Verified 06/30/17 13:03 Date of admission: 07/04/17 14:26 Primary care physician: Domitila Lau MD Discharging clinician: Ruddy Vaca Anticipated date of discharge: 07/07/17 - Constitutional Vitals: Temp Pulse Resp BP Pulse Ox 97.9 F 71 18 138/83 97 07/07/17 07:26 07/07/17 07:26 07/07/17 07:47 07/07/17 07:26 07/07/17 07:47 General appearance: Present: mild distress, A&O X 3, no acute distress Exam: Gen: Vitals noted. No acute distress. HEENT: Normocephalic, atraumatic Neck: Supple. No adenopathy. Cardiac: RRR, no murmur, +S1/S2 Pulmonary: Minimal wheezes b/l, however significantly improved Abdomen: soft, nontender, BS noted, no guarding MSK: ROM intact, no joint swelling noted Extremities: Trace BLE edema, nontender calf, no cyanosis or clubbing Neuro: A&Ox3, moves all extremities, no focal deficits Psych: Appropriate mood and behavior - Patient Status Disposition: Home, Self-Care Condition: Fair Functional capacity at discharge: independent ambulation Overall status at discharge: patient is progressing back to baseline - Discharge Instructions Instructions: Chronic Obstructive Pulmonary Disease (DC) Follow Up With: Domitila Lau MD [Primary Care Provider] - 07/07/17 11:00 am Additional Instructions: Follow-up with primary care in 2-3 days Wear continuous oxygen, continue prednisone and Levaquin. Take all medications as prescribed Monitor her heart rate at home and keep log Return to the ED for return of symptoms, significant chest pain, fever, changes in level of consciousness - Diet and Activity Activity: increase activity as tolerated, resume usual activities as tolerated, wear oxygen at all times Diet: diabetic diet, low salt diet <Diego Mullins - Last Filed: 07/07/17 16:06> Date of Encounter: 07/07/17 - Discharge Diagnosis (1) Respiratory failure Priority: Primary Status: Resolved Qualifiers: Chronicity: acute on chronic Respiratory failure complication: hypoxia Qualified Code(s): J96.21 - Acute and chronic respiratory failure with hypoxia (2) Acute exacerbation of chronic obstructive airways disease Status: Acute (3) DM type 2, uncontrolled, with neuropathy Status: Chronic (4) Hypertension Status: Chronic Qualifiers: Hypertension type: essential hypertension Qualified Code(s): I10 - Essential (primary) hypertension (5) GERD (gastroesophageal reflux disease) Status: Chronic Qualifiers: Esophagitis presence: esophagitis presence not specified Qualified Code(s) : K21.9 - Gastro-esophageal reflux disease without esophagitis (6) Tachycardia Status: Chronic (7) Obesity (BMI 30.0-34.9) Status: Chronic (8) Noncompliance with treatment regimen Status: Acute Hospital course: Ms. Ren is a 57 year old female - Time Spent with Patient Total time spent providing and/or coordinating discharge services: 39min Date of admission: 07/04/17 14:26 Primary care physician: Domitila Lau MD - Constitutional Vitals: Temp Pulse Resp BP Pulse Ox 97.7 F 92 16 137/99 95 07/07/17 11:25 07/07/17 11:25 07/07/17 11:26 07/07/17 11:25 07/07/17 11:26 - Attending Attestation I examined this patient and my medical decision-making was reviewed with the Resident Physician on 07/07/17. I agree with the documented findings, disposition and treatment plan as described except to the extent set forth below. Ms Ren has been admitted for acute on chronic resp failure and COPD exac. She is now afebrile and breathing has improved. She is tolerating PO steroids. She is ready for discharge home. Exam alert Comfortable up in chair. Mucus membranes moist Heart reg Scant end exp wheeze abd soft Plan D/C home today Pt has been noncompliant with her treatment presumably due to financial reasons. She does not get her medications/inhalers, etc. She is high risk for return to the hospital and readmit due to this situation.
[2017-07-07] MEDS: Aspirin Enteric Coated 81 MG Tablet PO SCH (10:36)
[2017-07-07] MEDS: Losartan/HCTZ 50-12.5 TABLET PO SCH (10:36)
[2017-07-07] MEDS: cloNIDine HCl 0.1 MG TABLET PO SCH ×2 (10:36→10:37)
[2017-07-07] MEDS: Loratadine 10 MG TABLET PO SCH (10:36)
[2017-07-07] MEDS: Metoprolol XL (24 HR) Succ 25 MG TAB.ER.24H PO SCH (10:36)
[2017-07-07] MEDS: levoFLOXacin 750 MG TABLET PO SCH (10:36)
[2017-07-07] MEDS: Furosemide 40 MG TABLET PO SCH (10:37)
[2017-07-07 11:30] VITALS: BP 137/99
== END 2017-07-07 15:11 | disposition home or self-care (01) | DRG 140 ==
LOC: 2NENU 12:52 → EMEROO 12:52 → SUATTDRO 15:00 → 2NENU 16:32 → SUATTDRO 07-04 14:26
PROVIDERS: ADMIT Internal Medicine; ATTEND Internal Medicine

== ENCOUNTER 2017-08-06 04:31 | Inpatient (IN) ==
[2017-08-06] MEDS ORDERED: methylPREDNISolone 125 MG/2 ML VIAL IVP ONE (05:01)
[2017-08-06] MEDS ORDERED: Ipratropium/Albuterol Neb 3 ML IH ONE (05:01)
--- NOTE | 2017-08-06 05:24 | Emergency Department Note ---
Disposition Clinical Impression: Pneumonia Qualifiers: Pneumonia type: due to unspecified organism Laterality: unspecified laterality Lung location: unspecified part of lung Qualified Code(s): J18.9 - Pneumonia, unspecified organism Disposition: Still a Patient Condition: Undetermined Referrals: Domitila Lau MD [Primary Care Provider] - Forms: ED Satisfaction Letter, Work/School Release Time of Disposition: 06:59 General Adult HPI - General Chief complaint: ED General Medical Stated complaint: abd pain Time Seen by Provider: 08/06/17 04:42 Source: patient, family Limitations: no limitations Nursing Notes Reviewed: Yes Vital Signs Reviewed: Yes - History of Present Illness HPI Narrative: Mrs. Ren, 57-year-old female, presents from home for evaluation of a 2 day history of green productive cough, vomiting, dyspnea at rest, lower abdominal pain. Lower abdominal pain worsened with vomiting. Dyspnea improved with home albuterol. She has a history of COPD with baseline 3 L oxygen continuous. She has associated subjective fever with chills. PMH: COPD on 3 L nasal cannula continuous at baseline ROS: Positive: As above Negative: Chest pain, palpitations, diaphoresis, unusual back pain, diarrhea, constipation Pain Scale: 8 - Related Data Home Medications Medication Instructions Recorded Confirmed Oxygen 3 l IH AD 07/19/16 06/30/17 raNITIdine HCl [Zantac] 150 mg PO DAILY 11/20/16 06/30/17 Aspirin [Lo-Dose Aspirin EC] 81 mg PO DAILY 01/12/17 06/30/17 Nitroglycerin [Nitrostat] 0.4 mg PO Q5M 06/03/17 06/30/17 Previous Rx's Medication Instructions Recorded Albuterol Sulfate [Ventolin Hfa] 2 puff IH Q4H PRN #1 inh 07/07/17 Atorvastatin Calcium [Lipitor] 20 mg PO DAILY #30 tablet 07/07/17 Ferrous Sulfate 325 mg PO Q2D 30 Days #15 tablet 07/07/17 Furosemide [Lasix] 40 mg PO DAILY PRN #30 tablet 07/07/17 Insulin NPH/REG 70/30 [HumuLIN 45 unit SQ BIDWM #3 vial 07/07/17 70/30 VIAL] Ipratropium/Albuterol Neb [Duoneb] 3 ml IH Q4HR #1 pack 07/07/17 Loratadine [Claritin] 10 mg PO DAILY #30 tablet 07/07/17 Losartan/Hydrochlorothiazide 1 tab PO DAILY #30 tablet 07/07/17 [Losartan-Hctz 100-25 mg Tab] Metoprolol XL (24 HR) Succ [Toprol 50 mg PO DAILY #30 tab.er.24h 07/07/17 XL] Pantoprazole Sodium [Protonix] 40 mg PO BIDWM #60 tablet. 07/07/17 Potassium Chloride [Klor-Con 10] 10 meq PO DAILY #30 tablet.er 07/07/17 Syringe and Needle,Insulin,1Ml 1 each SQ BID #60 disp.syrin 07/07/17 [Insulin Syringe] amLODIPine [Norvasc] 5 mg PO HS #30 tab 07/07/17 cloNIDine HCl [Clonidine HCl] 0.3 mg PO QID #90 tablet 07/07/17 levoFLOXacin [Levaquin] 750 mg PO DAILY #7 tablet 07/07/17 predniSONE [PredniSONE] 10 mg PO DAILY #30 tablet 07/07/17 Allergies Allergy/AdvReac Type Severity Reaction Status Date / Time NSAIDS (Non-Steroidal Allergy Unknown See Verified 08/06/17 04:34 Anti-Inflamma Comments Penicillins Allergy Unknown Hives Verified 08/06/17 04:34 lisinopril AdvReac Cough Verified 08/06/17 04:34 lorazepam [From Ativan] AdvReac Confusion Verified 08/06/17 04:34 tramadol AdvReac Nausea Verified 08/06/17 04:34 All systems ED: reviewed and negative except as stated. 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 Head: atraumatic, normocephalic Eye: normal appearance, no scleral icterus, no conjunctival injection ENT: mucous membranes moist, normal external ear exam Neck: normal inspection, trachea midline, full ROM Chest: normal inspection, symmetric chest rise Respiratory: Poor respiratory effort. Prolonged expiratory phase. Bilateral breath sounds are diminished with scattered wheeze. No crackles or rhonchi. Cardiovascular: Tachycardic rate and regular rhythm. No clicks, rubs, gallops, or murmors. Normal heart sounds. Abdomen: Bowel sounds present normoactive x-4 quadrants. Abdomen is soft, nondistended. Mild tenderness in lower abdomen; nonfocal. No guarding or rebound. Musculoskeletal: Spontaneously moving all extremities. Skin: warm, dry, intact. Neuro: Alert and oriented x4. Sensation light touch intact. Psych: Patient's affect is appropriate for situation. - General Limitations: no limitations General appearance: alert, in no apparent distress Course Course Narrative: Clinical concern is for pneumonia; is to be community-acquired pneumonia. Patient has no chest pain no cardiac history. Patient stable for 2 view x-ray. Patient refuses EKG. Chest x-ray read by radiology as no acute cardiopulmonary findings, clinically suspect pneumonia. Patient has been signed out to the night team, Drs. Suresh and Theresa. Pending: laboratory workup. Barriers to disposition: complete lab workup Recommended disposition: DC home with empiric antibiotics against CAP & steroid burst. Home O2 and inhalers. PCP follow-up. Chest X-Ray 08/06/17 05:01 IMPRESSION: No acute cardiopulmonary findings. D/ / Gerardo Roland / Gerardo Roland Interpreting Provider: Gerardo Roland Vital Signs Temperature 98.0 F 08/06/17 04:34 Pulse Rate 111 08/06/17 04:34 Respiratory Rate 24 08/06/17 04:34 Blood Pressure 164/95 08/06/17 04:34 O2 Sat by Pulse Oximetry 94 08/06/17 04:34 Temperature 98.0 F 08/06/17 04:34 Pulse Rate 111 08/06/17 04:34 Respiratory Rate 20 08/06/17 06:24 Blood Pressure 164/95 08/06/17 04:34 O2 Sat by Pulse Oximetry 98 08/06/17 06:24 Oxygen Delivery Oxygen Delivery Nasal Cannula Medical Decision Making - Lab Data Result diagrams: 08/06/17 06:37 Lab Results 08/06/17 Range/Units 06:37 WBC 7.0 (4.3-11.1) K/mcL RBC 4.75 (3.82-4.97) M/mcL Hgb 12.7 (11.5-15.4) g/dL Hct 41.1 (35.3-44.9) % MCV 86.5 (83.0-100.0) fL MCH 26.7 L (28.0-33.3) pg MCHC 30.9 L (31.6-35.5) g/dL RDW 16.7 H (11.5-14.5) % Plt Count 441 H (140-400) K/mcL MPV 10.1 (9.4-12.4) fL Immature Gran % 1.4 (0-4) % Seg Neutrophils % 69.0 % Lymphocytes % 18.3 % Monocytes % 9.5 % Eosinophils % 1.1 % Basophils % 0.7 % Neutrophils # 4.8 (1.6-8.9) K/mcL Lymphocytes # 1.3 (0.6-4.6) K/mcL Monocytes # 0.7 (0.0-1.3) K/mcL Eosinophils # 0.1 (0.0-0.6) K/mcL Basophils # 0.1 (0.0-0.2) K/mcL Nucleated RBCs/100 WBC 0.4 H (0) /100 WBC
--- NOTE | 2017-08-06 05:37 | Emergency Department Note ---
Disposition Clinical Impression: Pneumonia Qualifiers: Pneumonia type: due to other aerobic Gram-negative bacteria Laterality: unspecified laterality Lung location: unspecified part of lung Qualified Code(s) : J15.6 - Pneumonia due to other Gram-negative bacteria Disposition: Still a Patient Forms: ED Satisfaction Letter, Work/School Release General Adult HPI - General Chief complaint: ED General Medical Stated complaint: abd pain Time Seen by Provider: 08/06/17 04:42 Source: patient, family Limitations: no limitations - History of Present Illness Pain Scale: 8 - Related Data Home Medications Medication Instructions Recorded Confirmed Oxygen 3 l IH AD 07/19/16 06/30/17 raNITIdine HCl [Zantac] 150 mg PO DAILY 11/20/16 06/30/17 Aspirin [Lo-Dose Aspirin EC] 81 mg PO DAILY 01/12/17 06/30/17 Nitroglycerin [Nitrostat] 0.4 mg PO Q5M 06/03/17 06/30/17 Previous Rx's Medication Instructions Recorded Albuterol Sulfate [Ventolin Hfa] 2 puff IH Q4H PRN #1 inh 07/07/17 Atorvastatin Calcium [Lipitor] 20 mg PO DAILY #30 tablet 07/07/17 Ferrous Sulfate 325 mg PO Q2D 30 Days #15 tablet 07/07/17 Furosemide [Lasix] 40 mg PO DAILY PRN #30 tablet 07/07/17 Insulin NPH/REG 70/30 [HumuLIN 45 unit SQ BIDWM #3 vial 07/07/17 70/30 VIAL] Ipratropium/Albuterol Neb [Duoneb] 3 ml IH Q4HR #1 pack 07/07/17 Loratadine [Claritin] 10 mg PO DAILY #30 tablet 07/07/17 Losartan/Hydrochlorothiazide 1 tab PO DAILY #30 tablet 07/07/17 [Losartan-Hctz 100-25 mg Tab] Metoprolol XL (24 HR) Succ [Toprol 50 mg PO DAILY #30 tab.er.24h 07/07/17 XL] Pantoprazole Sodium [Protonix] 40 mg PO BIDWM #60 tablet.dr 07/07/17 Potassium Chloride [Klor-Con 10] 10 meq PO DAILY #30 tablet.er 07/07/17 Syringe and Needle,Insulin,1Ml 1 each SQ BID #60 disp.syrin 07/07/17 [Insulin Syringe] amLODIPine [Norvasc] 5 mg PO HS #30 tab 07/07/17 cloNIDine HCl [Clonidine HCl] 0.3 mg PO QID #90 tablet 07/07/17 levoFLOXacin [Levaquin] 750 mg PO DAILY #7 tablet 07/07/17 predniSONE [PredniSONE] 10 mg PO DAILY #30 tablet 07/07/17 Allergies Allergy/AdvReac Type Severity Reaction Status Date / Time NSAIDS (Non-Steroidal Allergy Unknown See Verified 08/06/17 04:34 Anti-Inflamma Comments Penicillins Allergy Unknown Hives Verified 08/06/17 04:34 lisinopril AdvReac Cough Verified 08/06/17 04:34 lorazepam [From Ativan] AdvReac Confusion Verified 08/06/17 04:34 tramadol AdvReac Nausea Verified 08/06/17 04:34 Past Medical History - Past Medical History Medical history: Reports: asthma, COPD, coronary artery disease, diabetes, GERD , hyperlipidemia, hypertension, renal disease Surgical history: Reports: appendectomy, cholecystectomy, knee replacement 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 I agree with the documented findings, disposition and treatment plan as described except to the extent set forth below. Patient seen with emergency medicine resident Juan Clement, Please see a copy of his note for details of the H&P, ED evaluation, management and disposition. I have independently evaluated the patient and confirmed appropriate portions of the history and physical exam. Briefly: 57 year old female presents the emergency department with cough green sputum aches and abdominal pain. No diarrhea no dysuria and no headache or photophobia chest total/bilaterally. Patient will get an EKG chest x-ray screening labs. Disposition pending. Time: 05:34 Vital Signs Temperature 98.0 F 08/06/17 04:34 Pulse Rate 111 08/06/17 04:34 Respiratory Rate 24 08/06/17 04:34 Blood Pressure 164/95 08/06/17 04:34 O2 Sat by Pulse Oximetry 94 08/06/17 04:34 Temperature 98.0 F 08/06/17 04:34 Pulse Rate 111 08/06/17 04:34 Respiratory Rate 24 08/06/17 04:34 Blood Pressure 164/95 08/06/17 04:34 O2 Sat by Pulse Oximetry 94 08/06/17 04:34 Oxygen Delivery Oxygen Delivery Nasal Cannula
[2017-08-06 06:52] LABS: Basophils # 0.1 K/mcL (0.0-0.2); Basophils % 0.7 %; Eosinophils # 0.1 K/mcL (0.0-0.6); Eosinophils % 1.1 %; Hematocrit 41.1 % (35.3-44.9); Hemoglobin 12.7 g/dL (11.5-15.4); Immature Granulocytes % 1.4 % (0-4); Lymphocytes # 1.3 K/mcL (0.6-4.6); Lymphocytes % 18.3 %; Mean Corpuscular HGB Conc 30.9 g/dL (31.6-35.5); Mean Corpuscular Hemoglobin 26.7 pg (28.0-33.3); Mean Corpuscular Volume 86.5 fL (83.0-100.0); Mean Platelet Volume 10.1 fL (9.4-12.4); Monocytes # 0.7 K/mcL (0.0-1.3); Monocytes % 9.5 %; Neutrophils # 4.8 K/mcL (1.6-8.9); Nucleated Red Blood Cells 0.4 /100 WBC (0); Platelet Count 441 K/mcL (140-400); Red Blood Count 4.75 M/mcL (3.82-4.97); Red Cell Distribution Width 16.7 % (11.5-14.5)
[2017-08-06] MEDS ORDERED: Levofloxacin 750 MG/150 ML 750 MG/150 ML BAG IVPB ONE (07:10)
[2017-08-06 07:14] LABS: BUN/Creatinine Ratio 12 (6-26); Blood Urea Nitrogen 8 mg/dL (6-20); Calcium 9.3 mg/dL (8.6-10.3); Carbon Dioxide 26 mEq/L (23-29); Chloride 100 mEq/L (98-107); Glucose 241 mg/dL (70-105); Osmolality,Calculated 298 (280-300); Potassium 3.1 mEq/L (3.5-5.1); Sodium 141 mEq/L (136-145); eGFR For African Americans > 60 (> 60); eGFR For Non-African Americans > 60 (> 60)
[2017-08-06 07:15] LABS: Troponin I < 0.03 ng/mL (< 0.04)
[2017-08-06] MEDS ORDERED: *HR* FentaNYL (PF) 100 MCG/2 ML VIAL IVP ONE (07:40)
[2017-08-06] MEDS ORDERED: Ondansetron 4 MG/2 ML VIAL IVP ONE (07:40)
[2017-08-06] MEDS ORDERED: Albuterol 2.5 MG/3 ML NEBULIZER IH PRN (09:47)
[2017-08-06] MEDS ORDERED: *HR* Dextrose 50 % in Water (Syg) 50 ML SYRINGE IVP PRN (10:01)
[2017-08-06] MEDS ORDERED: D5% in Water 1,000 ML IVC PRN (10:01)
[2017-08-06] MEDS ORDERED: Dextrose Gel 15 GM/37.5 ML TUBE PO PRN ×2 (10:01)
[2017-08-06] MEDS ORDERED: Potassium Chloride Elixir 20 MEQ/15 ML UDC PO STA (10:02)
[2017-08-06] MEDS ORDERED: Acetaminophen 325 MG TABLET PO PRN (11:03)
[2017-08-06] MEDS ORDERED: Naloxone 0.4 MG/ML INJ IVP PRN (11:03)
[2017-08-06] MEDS ORDERED: Acetaminophen 325 MG TABLET PO STA (11:07)
[2017-08-06] MEDS ORDERED: Ondansetron 4 MG/2 ML VIAL IVP PRN (11:07)
[2017-08-06] MEDS ORDERED: Ondansetron 4 MG/2 ML VIAL IVP STA (11:08)
[2017-08-06] MEDS ORDERED: Furosemide 40 MG TABLET PO PRN (11:08)
[2017-08-06] MEDS ORDERED: Nitroglycerin 0.4 MG TAB.SUBL SL PRN (11:08)
[2017-08-06] MEDS: Loratadine 10 MG TABLET PO SCH (11:09)
--- NOTE | 2017-08-06 11:18 | Internal Med History&Physical ---
Date of Encounter: 08/06/17 Time of Encounter: 10:07 Internal Medicine - H&P: HPI Chief complaint: "Short of breath" Admitted From: Emergency Dept Plans for Post Hospital Care: Home History of present illness: Ms. Ren is a 57 year old female who presented to ED with 2-day history of shortness of breath. She states that she started feeling dyspneic yesterday. She has history of COPD. She was hospitalized last month for stenotrophomonas pneumonia/COPD exacerbation and completed Levaquin course. She has cough. She denies fever, chills, chest pain, changes in bladder, or changes in bowels. She does have some abdominal pain, nausea, and vomiting. Abdominal pain is genaralized with rebound or guarding. She denies hematemesis, or coffee-ground/ bilious emesis. She states that she has a history of gastric ulcers. She has chronic respiratory failure and is on 3L NC at home. In the ED, CXR showed no acute cardiopulmonary process. She is saturating in 90s on 3L NC. She was tachypneic. She received IV solumedrol, duonebs, and IV levaquin in ED. At the time of my examination, she was still nauseous and wanted more anti- emetics. She states she still has some increased WOB. She has no other complaints at this time. Past Med Surg Social Fam HX - Past Medical History Attestation: Yes The following information was validated with the patient. Source: patient Medical history: asthma, COPD, diabetes, GERD, hyperlipidemia, hypertension, renal disease Additional medical history: "and an ulcer, a huge one" Psychiatric history: anxiety, depression - Past Surgical History Surgical History: appendectomy, cholecystectomy, knee replacement Additional surgical history: renal artery stent - Social History Smoking Status: Former smoker Smokeless Tobacco Status: No Alcohol use: none Drug use: none - Family History Father Family Member Ethnicity: Non- Living Status: Hx Family Cardiac Disorders: Yes Hx Family Respiratory Disorders: No Hx Family Cancer: No Hx Family GI Disorders: No Hx Family Endocrine Disorder: No Hx Family Neuromuscular Disorders: No Hx Family Neurologic Disorders: No Hx Family HEENT Disorders: No Hx Family Autoimmune Disorders: No Mother Adopted: No Family Member Ethnicity: Non- Living Status: Still Living Hx Family Cardiac Disorders: No Hx Family Respiratory Disorders: No Hx Family Cancer: No Hx Family GI Disorders: No Hx Family Endocrine Disorder: Yes (DM) Hx Family Neuromuscular Disorders: No Hx Family Neurologic Disorders: No Hx Family HEENT Disorders: No Hx Family Autoimmune Disorders: Yes (Arthritis) - Additional Family History Additional family history: Family history reviewed with patient. Internal Medicine - H&P: Meds Oxygen 3 l IH AD 07/19/16 [History] raNITIdine HCl [Zantac] 150 mg PO DAILY 11/20/16 [History] Aspirin [Lo-Dose Aspirin EC] 81 mg PO DAILY 01/12/17 [History] Nitroglycerin [Nitrostat] 0.4 mg PO Q5M 06/03/17 [History] Albuterol Sulfate [Ventolin Hfa] 2 puff IH Q4H PRN #1 inh 07/07/17 [Rx] Furosemide [Lasix] 40 mg PO DAILY PRN #30 tablet 07/07/17 [Rx] Ipratropium/Albuterol Neb [Duoneb] 3 ml IH Q4HR #1 pack 07/07/17 [Rx] amLODIPine [Norvasc] 5 mg PO HS #30 tab 07/07/17 [Rx] cloNIDine HCl [Clonidine HCl] 0.3 mg PO QID #90 tablet 07/07/17 [Rx] Budesonide/Formoterol 160/4.5 [Symbicort 160/4.5] 2 puff IH BIDR 08/06/17 [ History] Insulin ASPART [NovoLOG] 0 unit SQ TIDWM PRN 08/06/17 [History] 3 Allergy/AdvReac Type Severity Reaction Status Date / Time NSAIDS (Non-Steroidal Allergy Unknown See Verified 08/06/17 04:34 Anti-Inflamma Comments Penicillins Allergy Unknown Hives Verified 08/06/17 04:34 lisinopril AdvReac Cough Verified 08/06/17 04:34 lorazepam [From Ativan] AdvReac Confusion Verified 08/06/17 04:34 tramadol AdvReac Nausea Verified 08/06/17 04:34 All Systems PM: A 10-system review of systems was performed and is negative for pertinent findings except as documented above in the HPI. - Constitutional Vitals: Temp Pulse Resp BP Pulse Ox 98.2 F 120 20 156/94 95 08/06/17 08:46 08/06/17 08:46 08/06/17 08:46 08/06/17 08:46 08/06/17 08:46 General appearance: Present: cooperative, A&O X 3, pleasant, no acute distress, obese, answers questions appropriately - Head Head exam: Present: atraumatic, normal inspection, normocephalic - Eye Eye exam: Present: EOMI, PERRL. Absent: conjunctival injection, nystagmus, scleral icterus - ENT ENT exam: Present: mucous membranes moist, normal external ear exam, normal oropharynx - Neck Neck exam general surgery: Present: supple, trachea midline. Absent: lymphadenopathy, tenderness, thyromegaly - Respiratory Respiratory exam: Present: wheezes (Bilateral intermittent expiratory). Absent : accessory muscle use, rales, rhonchi Additional comments: Mildly labored WOB, coarse breath sounds bilaterally - Cardiovascular Cardiovascular exam: Present: RRR, +S1, +S2. Absent: diastolic murmur, gallop, rubs, systolic murmur Additional comments: No BLE edema - GI/Abdominal GI/Abdominal exam: Present: normal bowel sounds, soft. Absent: distended, hepatomegaly, mass, splenomegaly, tenderness - Neurological Exam Neurological exam: Present: alert, CN II-XII intact, oriented X3, no focal deficits, strengths equal and symetr throughout. Absent: motor sensory deficit , facial droop, speech deficit - Psychiatric Psychiatric exam: Present: normal affect, normal mood. Absent: agitated, anxious, depressed - Skin Skin exam: Present: dry, intact, warm. Absent: cyanosis, rash Internal Med - H&P Results - Labs CBC & Chem 7: 08/06/17 06:37 08/06/17 06:37 - Assessment and plan (1) Acute exacerbation of chronic obstructive pulmonary disease Current Visit: Yes Status: Acute Assessment and plan: Admit as inpatient with telemetry. Continue home supplemental oxygen. Start duonebs scheduled Q6H, along with mucomyst inhaled and chest PT. Start claritin and mucinex. Start incentive spirometer. Turn, cough, deep breathe. PT/OT consulted for decreased exercise tolerance. Continue IV solumedrol at 40 mg IV Q8H; taper with improvement. Continue IV levaquin for now given history of rare complicated pneumonia 1 month ago requiring hospitalization. Repeat labwork in AM. (2) Chronic respiratory failure Current Visit: Yes Status: Chronic Assessment and plan: Continue home supplemental oxygen. Treating acute exacerbation of COPD as per above. Qualifiers: Respiratory failure complication: unspecified whether with hypoxia or hypercapnia Qualified Code(s): J96.10 - Chronic respiratory failure, unspecified whether with hypoxia or hypercapnia (3) DM type 2, uncontrolled, with neuropathy Current Visit: Yes Status: Chronic Assessment and plan: Start accuchecks and SSI QID AC/HS. Start diabetic, cardiac diet. (4) Epigastric pain Current Visit: Yes Status: Acute Assessment and plan: Generalized abdominal pain associated with nausea and vomiting. She thinks this may be related to her chronic gastric ulcers. Continue home ranitidine. Add PPI and carafate for acute exacerbation. Start zofran PRN nausea/vomiting. H/H stable with no signs of bleeding at this time. Will obtain hemoccult. (5) Acute hyperglycemia Current Visit: Yes Status: Acute Assessment and plan: Management of DM as per above. (6) CHF (congestive heart failure) Current Visit: Yes Status: Chronic Assessment and plan: Euvolemic at this time. Continue home medications. Qualifiers: Heart failure type: diastolic Heart failure chronicity: chronic Qualified Code(s): I50.32 - Chronic diastolic (congestive) heart failure (7) GERD (gastroesophageal reflux disease) Current Visit: Yes Status: Chronic Assessment and plan: Continue home ranitidine. Added PPI and carafate for acute issues as per above. Qualifiers: Esophagitis presence: esophagitis presence not specified Qualified Code(s) : K21.9 - Gastro-esophageal reflux disease without esophagitis (8) HLD (hyperlipidemia) Current Visit: Yes Status: Chronic Assessment and plan: Continue home medications. Qualifiers: Hyperlipidemia type: unspecified Qualified Code(s): E78.5 - Hyperlipidemia , unspecified (9) HTN (hypertension) Current Visit: Yes Status: Chronic Assessment and plan: Continue home medications. Qualifiers: Hypertension type: essential hypertension Qualified Code(s): I10 - Essential (primary) hypertension (10) Obesity (BMI 30.0-34.9) Current Visit: Yes Status: Chronic Assessment and plan: Counselled on lifestyle modifications. (11) DVT prophylaxis Current Visit: Yes Status: Acute Assessment and plan: Start lovenox 40 mg SQ QD and SCDs. - Time Spent With Patient Total time spent is greater than 50% in coordination of care (as documented) at patient's floor/unit and/or counseling patient: less than 15 minutes
[2017-08-06] MEDS: Acetylcysteine 10% 2 ML INHSOL IH SCH ×3 (11:46→21:21)
[2017-08-06] MEDS: Ipratropium/Albuterol Neb 3 ML IH SCH ×3 (11:46→21:21)
[2017-08-06] MEDS: Budesonide/Formoterol 160/4.5 MDI IH SCH ×2 (11:47→21:21)
[2017-08-06] MEDS: cloNIDine HCl 0.1 MG TABLET PO SCH ×3 (12:13→21:20)
[2017-08-06] MEDS: Sucralfate 1 GM TABLET PO SCH ×3 (12:13→21:20)
[2017-08-06] MEDS: Aspirin Enteric Coated 81 MG Tablet PO SCH (12:20)
[2017-08-06] MEDS: Insulin LISPRO 300 UNITS/3 ML VIAL SQ SCH ×3 (12:20→21:26)
[2017-08-06] MEDS: Famotidine 20 MG TABLET PO SCH (12:20)
[2017-08-06] MEDS: *HR* Enoxaparin 40 MG/0.4 ML SYRINGE SQ SCH (12:20)
[2017-08-06] MEDS: Pantoprazole 40 MG VIAL IVP SCH (12:21)
[2017-08-06] MEDS ORDERED: GI Cocktail 40 ML EACH PO ONE (15:01)
[2017-08-06] MEDS: MethylPREDNISolone 40 MG/ML VIAL IVP SCH (15:29)
[2017-08-06] MEDS: amLODIPine 5 MG TABLET PO SCH (21:20)
[2017-08-07] MEDS ORDERED: clonazePAM 1 MG TABLET PO ONE (01:40)
[2017-08-07] MEDS ORDERED: D5% in Water 1,000 ML IVC PRN (02:06)
[2017-08-07] MEDS ORDERED: Dextrose Gel 15 GM/37.5 ML TUBE PO PRN ×2 (02:06)
[2017-08-07] MEDS ORDERED: *HR* Dextrose 50 % in Water (Syg) 50 ML SYRINGE IVP PRN (02:06)
[2017-08-07] MEDS ORDERED: Insulin DETEMIR 100 UNIT/ML X5UNITS SQ SCH (02:15)
[2017-08-07 02:20] LABS: Basophils % 0.2 %; Hematocrit 35.2 % (35.3-44.9); Immature Granulocytes % 1.2 % (0-4); Lymphocytes # 0.6 K/mcL (0.6-4.6); Lymphocytes % 11.9 %; Mean Corpuscular HGB Conc 31.3 g/dL (31.6-35.5); Mean Corpuscular Volume 86.3 fL (83.0-100.0); Mean Platelet Volume 10.9 fL (9.4-12.4); Monocytes # 0.2 K/mcL (0.0-1.3); Monocytes % 4.8 %; Neutrophils # 4.1 K/mcL (1.6-8.9); Platelet Count 367 K/mcL (140-400); Red Blood Count 4.08 M/mcL (3.82-4.97); Red Cell Distribution Width 16.2 % (11.5-14.5); Segmented Neutrophils % 81.9 %
[2017-08-07 02:32] LABS: BUN/Creatinine Ratio 15 (6-26); Blood Urea Nitrogen 13 mg/dL (6-20); Calcium 9.2 mg/dL (8.6-10.3); Carbon Dioxide 29 mEq/L (23-29); Chloride 97 mEq/L (98-107); Glucose 448 mg/dL (70-105); Osmolality,Calculated 304 (280-300); Potassium 3.5 mEq/L (3.5-5.1); Sodium 137 mEq/L (136-145); eGFR For African Americans > 60 (> 60); eGFR For Non-African Americans > 60 (> 60)
[2017-08-07] MEDS: MethylPREDNISolone 40 MG/ML VIAL IVP SCH ×2 (02:35→09:30)
[2017-08-07] MEDS: Acetylcysteine 10% 2 ML INHSOL IH SCH ×4 (04:03→21:00)
[2017-08-07] MEDS: Ipratropium/Albuterol Neb 3 ML IH SCH ×4 (04:03→21:00)
[2017-08-07] MEDS: *HR* Enoxaparin 40 MG/0.4 ML SYRINGE SQ SCH (06:12)
[2017-08-07] MEDS: Loratadine 10 MG TABLET PO SCH (09:28)
[2017-08-07] MEDS: Aspirin Enteric Coated 81 MG Tablet PO SCH (09:28)
[2017-08-07] MEDS: cloNIDine HCl 0.1 MG TABLET PO SCH ×4 (09:29→19:57)
[2017-08-07] MEDS: Famotidine 20 MG TABLET PO SCH (09:29)
[2017-08-07] MEDS: Sucralfate 1 GM TABLET PO SCH ×4 (09:30→20:02)
[2017-08-07] MEDS: Insulin LISPRO 300 UNITS/3 ML VIAL SQ SCH ×5 (09:30→19:59)
[2017-08-07] MEDS: Pantoprazole 40 MG VIAL IVP SCH (09:30)
[2017-08-07] MEDS: Insulin DETEMIR 100 UNIT/ML X5UNITS SQ SCH ×2 (09:31→19:57)
[2017-08-07] MEDS: Levofloxacin 750 MG/150 ML 750 MG/150 ML BAG IVPB SCH (09:32)
[2017-08-07] MEDS: Budesonide/Formoterol 160/4.5 MDI IH SCH ×2 (10:13→21:00)
--- NOTE | 2017-08-07 15:02 | Internal Med Progress Note ---
Date of Encounter: 08/07/17 Time of Encounter: 09:00 - Assessment and plan (1) Acute exacerbation of chronic obstructive pulmonary disease Current Visit: Yes Status: Acute Assessment and plan: Continue bronchodilators, steroids and O2 supplementation. Clinically getting better. Moderate risk for complications. (2) DM type 2, uncontrolled, with neuropathy Current Visit: Yes Status: Chronic (3) GERD (gastroesophageal reflux disease) Current Visit: Yes Status: Chronic Assessment and plan: Continue Protonix Qualifiers: Esophagitis presence: esophagitis presence not specified Qualified Code(s) : K21.9 - Gastro-esophageal reflux disease without esophagitis (4) Acute hyperglycemia Current Visit: Yes Status: Acute Assessment and plan: Due to uncontrolled diabetes and steroid use. Increased insulin regimen. Continue to monitor blood sugars closely. (5) DVT prophylaxis Current Visit: Yes Status: Acute Assessment and plan: On Lovenox (6) Obesity (BMI 30.0-34.9) Current Visit: Yes Status: Chronic (7) HTN (hypertension) Current Visit: Yes Status: Chronic Assessment and plan: Blood pressure is elevated today. Patient is on amlodipine and clonidine. She is allergic to lisinopril. We will continue to monitor with these medications. Qualifiers: Hypertension type: essential hypertension Qualified Code(s): I10 - Essential (primary) hypertension (8) Epigastric pain Current Visit: Yes Status: Acute Assessment and plan: Improved at this time. Continue Protonix (9) CHF (congestive heart failure) Current Visit: Yes Status: Chronic Assessment and plan: Continue Lasix. Qualifiers: Heart failure type: diastolic Heart failure chronicity: chronic Qualified Code(s): I50.32 - Chronic diastolic (congestive) heart failure (10) Chronic respiratory failure Current Visit: Yes Status: Chronic Assessment and plan: Continue O2 supplementation Qualifiers: Respiratory failure complication: hypoxia Qualified Code(s): J96.11 - Chronic respiratory failure with hypoxia - Time Spent With Patient Total time spent is greater than 50% in coordination of care (as documented) at patient's floor/unit and/or counseling patient: - Subjective Interval history: Patient is awake and alert. Feels better compared to yesterday. She is able to breathe much better. Denies any chest pain. No palpitations. - Constitutional Vitals: Temp Pulse Resp BP Pulse Ox 98.3 F 87 16 151/83 95 08/07/17 09:48 08/07/17 09:48 08/07/17 10:23 08/07/17 09:48 08/07/17 10:23 General appearance: Present: cooperative, A&O X 3, pleasant, no acute distress, obese, answers questions appropriately - Neck Neck exam general surgery: Present: supple, trachea midline. Absent: lymphadenopathy - Respiratory Respiratory exam: Present: prolonged expiratory phase, wheezes. Absent: accessory muscle use, rales, rhonchi - Cardiovascular Cardiovascular exam: Present: RRR, +S1, +S2. Absent: diastolic murmur, gallop, rubs, systolic murmur - GI/Abdominal GI/Abdominal exam: Present: normal bowel sounds, soft, no peritoneal signs. Absent: distended, tenderness - Extremities Exam Extremities exam: Present: warm, radial pulses palpable and symmetrical. Absent : calf tenderness, cyanotic, pedal edema - Neurological Exam Neurological exam: Present: CN II-XII intact, oriented X3, no focal deficits. Absent: facial droop, speech deficit Internal Medicine: Result - Labs CBC & Chem 7: 08/07/17 01:34 08/07/17 01:34 Labs: Short CBC 08/07/17 Range/Units 01:34 WBC 5.0 (4.3-11.1) K/mcL Hgb 11.0 L D (11.5-15.4) g/dL Hct 35.2 L (35.3-44.9) % Plt Count 367 (140-400) K/mcL Neutrophils # 4.1 (1.6-8.9) K/mcL BMP 08/07/17 01:34 Sodium 137 Potassium 3.5 Chloride 97 L Carbon Dioxide 29 BUN 13 Creatinine 0.89 Glucose 448 H Calcium 9.2 - VTE Documentation of Mechanical Device: Intermittent pneumatic compression device Consult Discharge Plan - Plan Referrals: Domitila Lau MD [Primary Care Provider] -
[2017-08-07] MEDS: clonazePAM 1 MG TABLET PO PRN (17:05)
[2017-08-07] MEDS: amLODIPine 5 MG TABLET PO SCH (19:56)
[2017-08-08] MEDS: Acetylcysteine 10% 2 ML INHSOL IH SCH ×2 (04:25→09:48)
[2017-08-08] MEDS: Ipratropium/Albuterol Neb 3 ML IH SCH ×2 (04:32→09:47)
[2017-08-08] MEDS: *HR* Enoxaparin 40 MG/0.4 ML SYRINGE SQ SCH (05:52)
[2017-08-08] MEDS: Insulin LISPRO 300 UNITS/3 ML VIAL SQ SCH ×4 (07:53→12:14)
[2017-08-08] MEDS: Aspirin Enteric Coated 81 MG Tablet PO SCH (07:54)
[2017-08-08] MEDS: Famotidine 20 MG TABLET PO SCH (07:54)
[2017-08-08] MEDS: cloNIDine HCl 0.1 MG TABLET PO SCH (07:54)
[2017-08-08] MEDS: Loratadine 10 MG TABLET PO SCH (07:55)
[2017-08-08] MEDS: Levofloxacin 750 MG/150 ML 750 MG/150 ML BAG IVPB SCH (07:55)
[2017-08-08] MEDS: Sucralfate 1 GM TABLET PO SCH (07:55)
[2017-08-08] MEDS: Pantoprazole 40 MG VIAL IVP SCH (07:55)
[2017-08-08] MEDS: clonazePAM 1 MG TABLET PO PRN (08:00)
[2017-08-08] MEDS ORDERED: predniSONE 20 MG TABLET PO SCH (09:00)
[2017-08-08] MEDS ORDERED: Furosemide 40 MG TABLET PO SCH (09:00)
[2017-08-08] MEDS: Budesonide/Formoterol 160/4.5 MDI IH SCH (09:48)
--- NOTE | 2017-08-08 11:02 | Discharge Summary ---
- NOTES TO OUTPATIENT PROVIDER Notes to Outpatient Provider: Patient with history of COPD admitted here with COPD exacerbation. Treated with bronchodilators, steroids and O2 supplementation. Also has diabetes which is poorly controlled. Received insulin here. Advised to stay compliant with insulin regimen. Patient will be discharged today on steroid taper, short course of antibiotics. She will follow up with her primary care provider and burial agent for further management. Date of Encounter: 08/08/17 Time of Encounter: 08:30 - Discharge Diagnosis (1) Acute exacerbation of chronic obstructive pulmonary disease Priority: Primary Status: Acute (2) DM type 2, uncontrolled, with neuropathy Priority: Secondary Status: Chronic (3) GERD (gastroesophageal reflux disease) Priority: Secondary Status: Chronic Qualifiers: Esophagitis presence: esophagitis presence not specified Qualified Code(s) : K21.9 - Gastro-esophageal reflux disease without esophagitis (4) Acute hyperglycemia Priority: Secondary Status: Acute (5) DVT prophylaxis Priority: Secondary Status: Acute (6) Obesity (BMI 30.0-34.9) Priority: Secondary Status: Chronic (7) HTN (hypertension) Priority: Secondary Status: Chronic Qualifiers: Hypertension type: essential hypertension Qualified Code(s): I10 - Essential (primary) hypertension (8) Epigastric pain Priority: Secondary Status: Acute (9) CHF (congestive heart failure) Priority: Secondary Status: Chronic Qualifiers: Heart failure type: diastolic Heart failure chronicity: chronic Qualified Code(s): I50.32 - Chronic diastolic (congestive) heart failure (10) Chronic respiratory failure Priority: Secondary Status: Chronic Qualifiers: Respiratory failure complication: hypoxia Qualified Code(s): J96.11 - Chronic respiratory failure with hypoxia Hospital course: Ms. Ren is a 57 year old female Patient with history of COPD admitted here with COPD exacerbation. She was Treated with bronchodilators, steroids and O2 supplementation. Also has diabetes which is poorly controlled. Received insulin per sliding scale here. She has been Advised to stay compliant with insulin regimen. Patient will be discharged today on steroid taper, short course of antibiotics. She will follow up with her primary care provider and burial agent for further management. Discharge discussed with: patient, family, nurse - Time Spent with Patient Total time spent providing and/or coordinating discharge services: Greater than 30 minutes (40 min) - Discharge Medications Prescriptions: levoFLOXacin [Levaquin] 750 mg PO DAILY #7 tablet predniSONE [PredniSONE] 10 mg PO DAILY 8 Days #20 tablet Sucralfate [Carafate] 1 gm PO QIDAC #120 tablet Home Medications: Oxygen 3 l IH AD 07/19/16 [History] raNITIdine HCl [Zantac] 150 mg PO DAILY 11/20/16 [History] Aspirin [Lo-Dose Aspirin EC] 81 mg PO DAILY 01/12/17 [History] Nitroglycerin [Nitrostat] 0.4 mg PO Q5M 06/03/17 [History] Albuterol Sulfate [Ventolin Hfa] 2 puff IH Q4H PRN #1 inh 07/07/17 [Rx] Furosemide [Lasix] 40 mg PO DAILY PRN #30 tablet 07/07/17 [Rx] Ipratropium/Albuterol Neb [Duoneb] 3 ml IH Q4HR #1 pack 07/07/17 [Rx] amLODIPine [Norvasc] 5 mg PO HS #30 tab 07/07/17 [Rx] cloNIDine HCl [Clonidine HCl] 0.3 mg PO QID #90 tablet 07/07/17 [Rx] Budesonide/Formoterol 160/4.5 [Symbicort 160/4.5] 2 puff IH BIDR 08/06/17 [ History] Insulin ASPART [NovoLOG] 0 unit SQ TIDWM PRN 08/06/17 [History] Sucralfate [Carafate] 1 gm PO QIDAC #120 tablet 08/08/17 [Rx] levoFLOXacin [Levaquin] 750 mg PO DAILY #7 tablet 08/08/17 [Rx] predniSONE [PredniSONE] 10 mg PO DAILY 8 Days #20 tablet 08/08/17 [Rx] Allergies/Adverse Reactions: 3 Allergy/AdvReac Type Severity Reaction Status Date / Time NSAIDS (Non-Steroidal Allergy Unknown See Verified 08/06/17 04:34 Anti-Inflamma Comments Penicillins Allergy Unknown Hives Verified 08/06/17 04:34 lisinopril AdvReac Cough Verified 08/06/17 04:34 lorazepam [From Ativan] AdvReac Confusion Verified 08/06/17 04:34 tramadol AdvReac Nausea Verified 08/06/17 04:34 Date of admission: 08/06/17 15:33 Primary care physician: Domitila Lau MD Discharging clinician: Chano Aparicio Anticipated date of discharge: 08/08/17 - Constitutional Vitals: Temp Pulse Resp BP Pulse Ox 97.4 F L 63 18 151/85 96 08/08/17 06:51 08/08/17 06:51 08/08/17 06:51 08/08/17 06:51 08/08/17 06:51 General appearance: Present: cooperative, A&O X 3, pleasant, no acute distress, obese, answers questions appropriately - Respiratory Respiratory exam: Present: decreased breath sounds (Decreased urine trend bilaterally), wheezes. Absent: accessory muscle use, rales, rhonchi - Cardiovascular Cardiovascular exam: Present: RRR, +S1, +S2. Absent: diastolic murmur, gallop, rubs, systolic murmur - GI/Abdominal GI/Abdominal exam: Present: normal bowel sounds, soft, no peritoneal signs. Absent: distended, tenderness - Extremities Exam Extremities exam: Present: warm, radial pulses palpable and symmetrical. Absent : calf tenderness, cyanotic, pedal edema - Patient Status Disposition: Home, Self-Care Condition: Good Functional capacity at discharge: uses cane/walker Overall status at discharge: patient is back to baseline - Discharge Instructions Follow Up With: Domitila Lau MD [Primary Care Provider] - (In one to 2 weeks) Zainab Nelson MD [Partnered Physician] - (In 1 week) Additional Instructions: Follow-up appointments: If there is not an appointment listed below, please call your physician and schedule a follow-up appointment. If you have congestive heart failure and your symptoms return, make an appointment with your physician. Medication List: Carry an up to date list of medications you are taking at all time. We have given you an updated medication list including any new medications that you have been prescribed. Please provide that list to your primary provider Symptoms: If your condition changes or you experience any of the following symptoms, notify your physician immediately: Unusual or worsening pain, fever, persistent nausea and vomiting, bleeding, increase in swelling (especially in your legs), sudden weight gain, extreme dizziness, chest pain, increased drainage or redness from a wound or incision. Go to the emergency department if you experience a problem with breathing. Weights: If you have a history of swelling or shortness of breath, weigh yourself daily and notify your physician if you have a weight gain of two or more pounds in one day or 5 or more pounds in a week. If you experience any of the warning signs for stroke: Sudden numbness or weakness of the face, arm or leg; especially on one side of the body, sudden confusion, trouble speaking or understanding, sudden trouble seeing in one or both eyes, sudden trouble walking, dizziness, loss of balance or coordination, sudden sever headache with no cause; Call 911 or go to the emergency room. Stroke is a medical emergency. Some risk factors for stroke: Age, cigarette smoking, diabetes, excessive alcohol consumption, family history , high blood pressure, overweight, physical inactivity, prior stroke, heart attack, diagnosis of carotid artery stenosis or other artery disease. If you smoke, STOP: Smoking or tobacco use significantly increases your risk of heart and lung disease. Your chance of disease greatly increases if you continue to smoke. For more information, call the [place] tobacco quit line for smoking cessation QUIT-NOW ( ) - Diet and Activity Activity: increase activity as tolerated, wear oxygen at all times Diet: diabetic diet - VTE Documentation of Mechanical Device: Intermittent pneumatic compression device
[2017-08-08 11:42] VITALS: BP 122/79
== END 2017-08-08 12:25 | disposition home or self-care (01) | DRG 140 ==
LOC: EMEROO 04:31 → 3NENU 04:31 → SUATTDRO 15:33
PROVIDERS: ADMIT Family Medicine; ATTEND Internal Medicine

== ENCOUNTER 2017-08-18 11:22 | Observation (INO) ==
[2017-08-18] MEDS ORDERED: Ipratropium/Albuterol Neb 3 ML IH ONE (11:39)
[2017-08-18] MEDS ORDERED: methylPREDNISolone 125 MG/2 ML VIAL IVP ONE (11:39)
[2017-08-18] MEDS ORDERED: 0.9 % Sodium Chloride 500 ML IVC ONE (11:40)
--- NOTE | 2017-08-18 11:43 | Emergency Department Note ---
Disposition Clinical Impression: COPD exacerbation Disposition: Admitted As Inpatient Condition: Fair Referrals: Domitila Lau MD [Primary Care Provider] - Forms: ED Satisfaction Letter Time of Disposition: 13:23 General Adult HPI - General Chief complaint: ED Shortness of Breath/Dyspnea Stated complaint: "sob" Time Seen by Provider: 08/18/17 11:28 Source: patient, family Mode of arrival: wheelchair Limitations: no limitations Nursing Notes Reviewed: Yes Vital Signs Reviewed: Yes - History of Present Illness HPI Narrative: 57-year-old female with a history of COPD presents for evaluation of dyspnea. Patient states that she was recently hospitalized and was released last Tuesday. Patient had a three-day hospital course and was discharged with antibiotics. Patient states that she felt well at the point of discharge but since being discharged patients felt increasingly dyspneic. Patient notes a productive cough. Patient has been using her inhaler at home. Patient has not been able to perform activities daily living without being short of breath. Patient's on 3 L oxygen chronically at home. Patient also notes some right-sided chest pain has been gone for the past 3 days. Denies any radiation of pain. Patient describes as "lung pain". Patient denies any pleuritic component to the pain. Denies history of PE or DVT. Patient denies any lower leg swelling recent long travel. Patient currently is not on any steroids or antibiotics. States she has been using her nebs every 4 hours. Patient also has an inhaler. Pain Scale: 5 - Related Data Home Medications Medication Instructions Recorded Confirmed Oxygen 3 l IH AD 07/19/16 08/18/17 raNITIdine HCl [Zantac] 150 mg PO DAILY 11/20/16 08/18/17 Aspirin [Lo-Dose Aspirin EC] 81 mg PO DAILY 01/12/17 08/18/17 Nitroglycerin [Nitrostat] 0.4 mg PO Q5M 06/03/17 08/18/17 Budesonide/Formoterol 160/4.5 2 puff IH BIDR 08/06/17 08/18/17 [Symbicort 160/4.5] Insulin NPH Hum/Reg Insulin Hm 0 unit SQ TID PRN 08/18/17 08/18/17 [Novolin 70-30 100 Unit/ml Vial] Previous Rx's Medication Instructions Recorded Albuterol Sulfate [Ventolin Hfa] 2 puff IH Q4H PRN #1 inh 07/07/17 Furosemide [Lasix] 40 mg PO DAILY PRN #30 tablet 07/07/17 Ipratropium/Albuterol Neb [Duoneb] 3 ml IH Q4HR #1 pack 07/07/17 amLODIPine [Norvasc] 5 mg PO HS #30 tab 07/07/17 cloNIDine HCl [Clonidine HCl] 0.3 mg PO QID #90 tablet 07/07/17 Sucralfate [Carafate] 1 gm PO QIDAC #120 tablet 08/08/17 Allergies Allergy/AdvReac Type Severity Reaction Status Date / Time NSAIDS (Non-Steroidal Allergy Unknown See Verified 08/06/17 04:34 Anti-Inflamma Comments Penicillins Allergy Unknown Hives Verified 08/06/17 04:34 lisinopril AdvReac Cough Verified 08/06/17 04:34 lorazepam [From Ativan] AdvReac Confusion Verified 08/06/17 04:34 tramadol AdvReac Nausea Verified 08/06/17 04:34 All systems ED: reviewed and negative except as stated. 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, other - Social History Smoking Status: Former smoker Smokeless Tobacco Status: No Alcohol use: Reports: none Drug use: Reports: none Physical Exam - General Limitations: no limitations General appearance: alert, in no apparent distress - Head Head exam: atraumatic, normocephalic, normal inspection - Eye Eye exam: Present: normal appearance, PERRL, EOMI - ENT ENT exam: normal exam, mucous membranes moist - Neck Neck exam: Present: normal inspection - Chest Chest inspection: Present: normal inspection, symmetric chest wall rise - Respiratory Respiratory exam: Present: accessory muscle use, prolonged expiratory phase, other (Diffusely diminished throughout) - Cardiovascular Cardiovascular exam: Present: normal rhythm, tachycardia. Absent: systolic murmur - Abdominal Exam Abdominal exam: Present: soft, Non-Tender - Extremities Exam Extremities exam: Present: normal inspection. Absent: pedal edema - Back Exam Back exam: Present: normal inspection - Neurological Exam Neurological exam: Present: alert, oriented X3, CN II-XII intact - Skin Skin exam: Present: warm, dry, intact, normal color Course Course Narrative: Patient seen and examined. Patient appears quite anxious tachypnea can tachycardic. Family is concerned the patient cannot take care of her activities of daily living with her breathing difficulty. Patient will be given aerosols, steroids, IV fluids symptomatic treatment. Will check basic labs chest x-ray as well as an EKG. - Reevaluation(s) Reevaluation #1: Lung exam is unchanged diminished throughout. Time: 12:32 Vital Signs Temperature 98.4 F 08/18/17 11:23 Pulse Rate 124 08/18/17 11:23 Respiratory Rate 22 08/18/17 11:23 Blood Pressure 168/118 08/18/17 11:23 O2 Sat by Pulse Oximetry 88 08/18/17 11:23 Temperature 98.4 F 08/18/17 11:30 Pulse Rate 121 08/18/17 12:34 Respiratory Rate 22 08/18/17 12:34 Blood Pressure 145/87 08/18/17 12:34 O2 Sat by Pulse Oximetry 96 08/18/17 12:34 Oxygen Delivery Oxygen Delivery Nasal Cannula Medical Decision Making - [facility] Narrative Medical decision making narrative: Patient presents with concerns of COPD exacerbation. Patient was recently twice for the same. Patient presented with surgical criteria with tachycardia as well as tachypnea. Patient was treated with triple nebs as well as steroids. Patient's breathing subjectively was the same. Patient did note a productive cough was recently hospitalized in was initially given Levaquin however given the sensitivities of chest x-ray with no acute findings for possible hospital associated pneumonia patient was also given cefepime. Patient does not have signs or symptoms consistent with a pulmonary embolism. Patient's most likely explained dyspnea is her COPD. Patient would benefit from aggressive aerosols, IV steroids and antibiotics as an inpatient. Patient does meet COPD exacerbation criteria due to her inability to perform her activities of daily living with her baseline oxygen requirement and maximization of her nebs. - Lab Data Lab results reviewed: Yes I reviewed the patient's lab results. Result diagrams: 08/18/17 11:54 08/18/17 11:54 Lab Results 08/18/17 08/18/17 08/18/17 Range/Units 11:54 11:54 11:54 WBC 12.0 H (4.3-11.1) K/mcL RBC 4.12 (3.82-4.97) M/mcL Hgb 11.2 L (11.5-15.4) g/dL Hct 36.3 (35.3-44.9) % MCV 88.1 (83.0-100.0) fL MCH 27.2 L (28.0-33.3) pg MCHC 30.9 L (31.6-35.5) g/dL RDW 16.6 H (11.5-14.5) % Plt Count 301 (140-400) K/mcL MPV 11.0 (9.4-12.4) fL Seg Neutrophils % 68.0 % Lymphocytes % 30.0 % Monocytes % 2.0 % Neutrophils # 8.2 (1.6-8.9) K/mcL Lymphocytes # 3.6 (0.6-4.6) K/mcL Monocytes # 0.2 (0.0-1.3) K/mcL Nucleated RBCs/100 WBC 0.3 H (0) /100 WBC Platelet Estimate Normal (Normal) VBG pH (7.32-7.42) pH Units VBG pCO2 (41-51) mmHg VBG pO2 (25-50) mmHg VBG HCO3 (21-27) mEq/L Sodium 141 (136-145) mEq/L Potassium 3.5 (3.5-5.1) mEq/L Chloride 102 (98-107) mEq/L Carbon Dioxide 30 H (23-29) mEq/L BUN 22 H (6-20) mg/dL Creatinine 0.60 (0.60-1.20) mg/dL Est GFR ( Amer) > 60 (> 60) Est GFR (Non-Af Amer) > 60 (> 60) BUN/Creatinine Ratio 37 H (6-26) Glucose 248 H (70-105) mg/dL Calculated Osmolality 304 H (280-300) Lactic Acid 1.5 (0.5-2.2) mmol/L Calcium 9.0 (8.6-10.3) mg/dL Troponin I < 0.03 (< 0.04) ng/mL B-Natriuretic Peptide (Less than 100) pg/mL 08/18/17 08/18/17 Range/Units 11:54 12:06 WBC (4.3-11.1) K/mcL RBC (3.82-4.97) M/mcL Hgb (11.5-15.4) g/dL Hct (35.3-44.9) % MCV (83.0-100.0) fL MCH (28.0-33.3) pg MCHC (31.6-35.5) g/dL RDW (11.5-14.5) % Plt Count (140-400) K/mcL MPV (9.4-12.4) fL Seg Neutrophils % % Lymphocytes % % Monocytes % % Neutrophils # (1.6-8.9) K/mcL Lymphocytes # (0.6-4.6) K/mcL Monocytes # (0.0-1.3) K/mcL Nucleated RBCs/100 WBC (0) /100 WBC Platelet Estimate (Normal) VBG pH 7.47 H (7.32-7.42) pH Units VBG pCO2 42 (41-51) mmHg VBG pO2 118 H (25-50) mmHg VBG HCO3 31 H (21-27) mEq/L Sodium (136-145) mEq/L Potassium (3.5-5.1) mEq/L Chloride (98-107) mEq/L Carbon Dioxide (23-29) mEq/L BUN (6-20) mg/dL Creatinine (0.60-1.20) mg/dL Est GFR ( Amer) (> 60) Est GFR (Non-Af Amer) (> 60) BUN/Creatinine Ratio (6-26) Glucose (70-105) mg/dL Calculated Osmolality (280-300) Lactic Acid (0.5-2.2) mmol/L Calcium (8.6-10.3) mg/dL Troponin I (< 0.04) ng/mL B-Natriuretic Peptide 81 (Less than 100) pg/mL - Radiology Data Radiology results reviewed: Yes I reviewed the patient's radiology results. Chest X-Ray 08/18/17 11:39 IMPRESSION: No acute process. Stable exam D/ / Kirit Chairez MD / Kirit Chairez MD Interpreting Provider: Kirit Chairez MD - EKG Data EKG #1 EKG attestation: Yes I reviewed and interpreted this EKG. EKG shows normal: sinus rhythm Rate: tachycardia Rhythm: NSR [place]/QRS: normal Interpretation: no acute changes, nonspecific ST-T wave changes S.B.ABob - Serena.Sanjay Situation: Demographics Background: Presenting Complaint Assessment: Vital Signs, Course and respsone to treatment, Patient/Family Expectation Recommendation: Barrier(s) to disposition, Recommendation based on pending studies, treatments, or consults S.B.A.Carlos Report Given to: Dr. Alessandra Calles Repor Time: 13:19
--- NOTE | 2017-08-18 11:46 | Emergency Department Note ---
Disposition Clinical Impression: COPD exacerbation Disposition: Admitted As Inpatient Condition: Fair General Adult HPI - General Chief complaint: ED Shortness of Breath/Dyspnea Stated complaint: "sob" Time Seen by Provider: 08/18/17 11:28 Source: patient, family Limitations: no limitations - History of Present Illness Pain Scale: 5 - Related Data Home Medications Medication Instructions Recorded Confirmed Oxygen 3 l IH AD 07/19/16 08/18/17 raNITIdine HCl [Zantac] 150 mg PO DAILY 11/20/16 08/18/17 Aspirin [Lo-Dose Aspirin EC] 81 mg PO DAILY 01/12/17 08/18/17 Nitroglycerin [Nitrostat] 0.4 mg PO Q5M 06/03/17 08/18/17 Budesonide/Formoterol 160/4.5 2 puff IH BIDR 08/06/17 08/18/17 [Symbicort 160/4.5] Insulin NPH Hum/Reg Insulin Hm 0 unit SQ TID PRN 08/18/17 08/18/17 [Novolin 70-30 100 Unit/ml Vial] Previous Rx's Medication Instructions Recorded Albuterol Sulfate [Ventolin Hfa] 2 puff IH Q4H PRN #1 inh 07/07/17 Furosemide [Lasix] 40 mg PO DAILY PRN #30 tablet 07/07/17 Ipratropium/Albuterol Neb [Duoneb] 3 ml IH Q4HR #1 pack 07/07/17 amLODIPine [Norvasc] 5 mg PO HS #30 tab 07/07/17 cloNIDine HCl [Clonidine HCl] 0.3 mg PO QID #90 tablet 07/07/17 Sucralfate [Carafate] 1 gm PO QIDAC #120 tablet 08/08/17 Allergies Allergy/AdvReac Type Severity Reaction Status Date / Time NSAIDS (Non-Steroidal Allergy Unknown See Verified 08/06/17 04:34 Anti-Inflamma Comments Penicillins Allergy Unknown Hives Verified 08/06/17 04:34 lisinopril AdvReac Cough Verified 08/06/17 04:34 lorazepam [From Ativan] AdvReac Confusion Verified 08/06/17 04:34 tramadol AdvReac Nausea Verified 08/06/17 04:34 Past Medical History - Past Medical History Medical history: Reports: asthma, COPD, diabetes, GERD, hyperlipidemia, hypertension, renal disease Surgical history: Reports: appendectomy, cholecystectomy, knee replacement Psychiatric history: Reports: anxiety, depression 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 , bilateral 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, other - Social History Smoking Status: Former smoker Smokeless Tobacco Status: No Alcohol use: Reports: none Drug use: Reports: none Physical Exam - General Limitations: no limitations Course Vital Signs Temperature 98.4 F 08/18/17 11:23 Pulse Rate 124 08/18/17 11:23 Respiratory Rate 22 08/18/17 11:23 Blood Pressure 168/118 08/18/17 11:23 O2 Sat by Pulse Oximetry 88 08/18/17 11:23 Temperature 98.4 F 08/18/17 11:30 Pulse Rate 110 08/18/17 13:45 Respiratory Rate 19 08/18/17 13:55 Blood Pressure 139/81 08/18/17 13:55 O2 Sat by Pulse Oximetry 96 08/18/17 13:45 Oxygen Delivery Oxygen Delivery Nasal Cannula Medical Decision Making - Lab Data Result diagrams: 08/18/17 11:54 08/18/17 11:54 Lab Results 08/18/17 08/18/17 08/18/17 Range/Units 11:54 11:54 11:54 WBC 12.0 H (4.3-11.1) K/mcL RBC 4.12 (3.82-4.97) M/mcL Hgb 11.2 L (11.5-15.4) g/dL Hct 36.3 (35.3-44.9) % MCV 88.1 (83.0-100.0) fL MCH 27.2 L (28.0-33.3) pg MCHC 30.9 L (31.6-35.5) g/dL RDW 16.6 H (11.5-14.5) % Plt Count 301 (140-400) K/mcL MPV 11.0 (9.4-12.4) fL Seg Neutrophils % 68.0 % Lymphocytes % 30.0 % Monocytes % 2.0 % Neutrophils # 8.2 (1.6-8.9) K/mcL Lymphocytes # 3.6 (0.6-4.6) K/mcL Monocytes # 0.2 (0.0-1.3) K/mcL Nucleated RBCs/100 WBC 0.3 H (0) /100 WBC Platelet Estimate Normal (Normal) VBG pH (7.32-7.42) pH Units VBG pCO2 (41-51) mmHg VBG pO2 (25-50) mmHg VBG HCO3 (21-27) mEq/L Sodium 141 (136-145) mEq/L Potassium 3.5 (3.5-5.1) mEq/L Chloride 102 (98-107) mEq/L Carbon Dioxide 30 H (23-29) mEq/L BUN 22 H (6-20) mg/dL Creatinine 0.60 (0.60-1.20) mg/dL Est GFR ( Amer) > 60 (> 60) Est GFR (Non-Af Amer) > 60 (> 60) BUN/Creatinine Ratio 37 H (6-26) Glucose 248 H (70-105) mg/dL Calculated Osmolality 304 H (280-300) Lactic Acid 1.5 (0.5-2.2) mmol/L Calcium 9.0 (8.6-10.3) mg/dL Troponin I < 0.03 (< 0.04) ng/mL B-Natriuretic Peptide (Less than 100) pg/mL 08/18/17 08/18/17 Range/Units 11:54 12:06 WBC (4.3-11.1) K/mcL RBC (3.82-4.97) M/mcL Hgb (11.5-15.4) g/dL Hct (35.3-44.9) % MCV (83.0-100.0) fL MCH (28.0-33.3) pg MCHC (31.6-35.5) g/dL RDW (11.5-14.5) % Plt Count (140-400) K/mcL MPV (9.4-12.4) fL Seg Neutrophils % % Lymphocytes % % Monocytes % % Neutrophils # (1.6-8.9) K/mcL Lymphocytes # (0.6-4.6) K/mcL Monocytes # (0.0-1.3) K/mcL Nucleated RBCs/100 WBC (0) /100 WBC Platelet Estimate (Normal) VBG pH 7.47 H (7.32-7.42) pH Units VBG pCO2 42 (41-51) mmHg VBG pO2 118 H (25-50) mmHg VBG HCO3 31 H (21-27) mEq/L Sodium (136-145) mEq/L Potassium (3.5-5.1) mEq/L Chloride (98-107) mEq/L Carbon Dioxide (23-29) mEq/L BUN (6-20) mg/dL Creatinine (0.60-1.20) mg/dL Est GFR ( Amer) (> 60) Est GFR (Non-Af Amer) (> 60) BUN/Creatinine Ratio (6-26) Glucose (70-105) mg/dL Calculated Osmolality (280-300) Lactic Acid (0.5-2.2) mmol/L Calcium (8.6-10.3) mg/dL Troponin I (< 0.04) ng/mL B-Natriuretic Peptide 81 (Less than 100) pg/mL Attestation Statement - Attestation Attestation: I examined this patient and my medical decision-making was reviewed with the PLYWOOD MATCHER/PA/Advanced Practice Nurse/Resident Physician. I agree with the documented findings, disposition and treatment plan as described except to the extent set forth below. Patient does use chronic oxygen at home, history of COPD, I did review the previous record. I did see the patient spoke with her and examined her, the daughter and granddaughter are in the room. She does have dyspnea as well as lung pain. No fever, vomiting, pain or swelling of the lower extremities. Symptoms most consistent with COPD exacerbation and not, embolism or myocardial infarction. I did review the EKG showing sinus tachycardia with rate of 111 bpm but no acute ischemic changes. Evaluation pending. Her oxygen saturation is improved on 3 L nasal cannula which is her baseline 1146
[2017-08-18 12:04] LABS: Hematocrit 36.3 % (35.3-44.9); Hemoglobin 11.2 g/dL (11.5-15.4); Mean Corpuscular HGB Conc 30.9 g/dL (31.6-35.5); Mean Corpuscular Hemoglobin 27.2 pg (28.0-33.3); Mean Corpuscular Volume 88.1 fL (83.0-100.0); Nucleated Red Blood Cells 0.3 /100 WBC (0); Platelet Count 301 K/mcL (140-400); Red Blood Count 4.12 M/mcL (3.82-4.97); Red Cell Distribution Width 16.6 % (11.5-14.5)
[2017-08-18 12:08] LABS: VBG HCO3 31 mEq/L (21-27); VBG PCO2 42 mmHg (41-51); VBG PH 7.47 pH Units (7.32-7.42); VBG PO2 118 mmHg (25-50)
[2017-08-18] MEDS ORDERED: Levofloxacin 750 MG/150 ML 750 MG/150 ML BAG IVPB ONE (12:33)
[2017-08-18 12:34] LABS: Troponin I < 0.03 ng/mL (< 0.04)
[2017-08-18 12:35] LABS: BUN/Creatinine Ratio 37 (6-26); Blood Urea Nitrogen 22 mg/dL (6-20); Carbon Dioxide 30 mEq/L (23-29); Chloride 102 mEq/L (98-107); Glucose 248 mg/dL (70-105); Osmolality,Calculated 304 (280-300); Potassium 3.5 mEq/L (3.5-5.1); Sodium 141 mEq/L (136-145); eGFR For African Americans > 60 (> 60); eGFR For Non-African Americans > 60 (> 60)
[2017-08-18 12:43] LABS: Lymphocytes # 3.6 K/mcL (0.6-4.6); Monocytes # 0.2 K/mcL (0.0-1.3); Neutrophils # 8.2 K/mcL (1.6-8.9)
[2017-08-18 12:44] LABS: Platelet Estimate Normal (Normal)
[2017-08-18] MEDS ORDERED: *HR* OxyCODONE/APAP 5/325 TABLET PO ONE (12:47)
[2017-08-18] MEDS ORDERED: Cefepime HCl 1,000 MG in 0.9 % Sodium Chloride Mini Bag 100 ML IVPB ONE (13:03)
[2017-08-18] MEDS ORDERED: Furosemide 40 MG TABLET PO PRN (14:52)
[2017-08-18] MEDS ORDERED: Naloxone 0.4 MG/ML INJ IVP PRN (14:55)
[2017-08-18] MEDS ORDERED: D5% in Water 1,000 ML IVC PRN (14:58)
[2017-08-18] MEDS ORDERED: *HR* Dextrose 50 % in Water (Syg) 50 ML SYRINGE IVP PRN (14:58)
[2017-08-18] MEDS ORDERED: Dextrose Gel 15 GM/37.5 ML TUBE PO PRN ×2 (14:58)
--- NOTE | 2017-08-18 15:33 | Internal Med History&Physical ---
Date of Encounter: 08/18/17 Time of Encounter: 15:22 Internal Medicine - H&P: HPI Chief complaint: Shortness of breath Admitted From: Home Plans for Post Hospital Care: Home History of present illness: Ms. Ren is a 57 year old female with PMH of Chronic tachycardia, COPD, Chronic resp failure on 3L home O2, HTN, DM, HLD, Anxiety She was recently discharged home after being managed for COPDE She is seen and evaluated at bedside The patient reports "I never felt better after I got home". She reports shortness of breath with minimal activities, denies chest pain, leg swelling, rhinorrhea, sore throat. She had no contacts with sick persons, and did not travel. She reports no worsening cough, she also says she has been compliant with her medications She has no fever, nausea or vomiting or diarrhea, noo symptoms Work up in the ER revealed no significant findings, her O2 is at her baseline and she is not wheezing on exam on evaluation She will be placed on observation for COPDE SW will be consulted for possible non-compliance and or inability to afford medications resulting in re-admissions Patient also informed to tell family to bring all her med bottles and inhalers for reconciliation Past Med Surg Social Fam HX - Past Medical History Medical history: asthma, COPD, diabetes, GERD, hyperlipidemia, hypertension, renal disease Additional medical history: "and an ulcer, a huge one" Psychiatric history: anxiety, depression - Past Surgical History Surgical History: appendectomy, cholecystectomy, knee replacement Additional surgical history: renal artery stent - Social History Smoking Status: Former smoker Smokeless Tobacco Status: No Alcohol use: none Drug use: none - Family History Father Family Member Ethnicity: Non- Living Status: Hx Family Cardiac Disorders: Yes Hx Family Respiratory Disorders: No Hx Family Cancer: No Hx Family GI Disorders: No Hx Family Endocrine Disorder: No Hx Family Neuromuscular Disorders: No Hx Family Neurologic Disorders: No Hx Family HEENT Disorders: No Hx Family Autoimmune Disorders: No Mother Adopted: No Family Member Ethnicity: Non- Living Status: Still Living Hx Family Cardiac Disorders: No Hx Family Respiratory Disorders: No Hx Family Cancer: No Hx Family GI Disorders: No Hx Family Endocrine Disorder: Yes (DM) Hx Family Neuromuscular Disorders: No Hx Family Neurologic Disorders: No Hx Family HEENT Disorders: No Hx Family Autoimmune Disorders: Yes (Arthritis) Internal Medicine - H&P: Meds Oxygen 3 l IH AD 05/29/17 [History] raNITIdine HCl [Zantac] 150 mg PO DAILY 11/20/16 [History] Aspirin [Lo-Dose Aspirin EC] 81 mg PO DAILY 01/12/17 [History] Nitroglycerin [Nitrostat] 0.4 mg PO Q5M 06/03/17 [History] Albuterol Sulfate [Ventolin Hfa] 2 puff IH Q4H PRN #1 inh 07/07/17 [Rx] Furosemide [Lasix] 40 mg PO DAILY PRN #30 tablet 07/07/17 [Rx] Ipratropium/Albuterol Neb [Duoneb] 3 ml IH Q4HR #1 pack 07/07/17 [Rx] amLODIPine [Norvasc] 5 mg PO HS #30 tab 07/07/17 [Rx] cloNIDine HCl [Clonidine HCl] 0.3 mg PO QID #90 tablet 07/07/17 [Rx] Budesonide/Formoterol 160/4.5 [Symbicort 160/4.5] 2 puff IH BIDR 08/06/17 [ History] Sucralfate [Carafate] 1 gm PO QIDAC #120 tablet 08/08/17 [Rx] Insulin NPH Hum/Reg Insulin Hm [Novolin 70-30 100 Unit/ml Vial] 0 unit SQ TID PRN 08/18/17 [History] 3 Allergy/AdvReac Type Severity Reaction Status Date / Time NSAIDS (Non-Steroidal Allergy Unknown See Verified 08/06/17 04:34 Anti-Inflamma Comments Penicillins Allergy Unknown Hives Verified 08/06/17 04:34 lisinopril AdvReac Cough Verified 08/06/17 04:34 lorazepam [From Ativan] AdvReac Confusion Verified 08/06/17 04:34 tramadol AdvReac Nausea Verified 08/06/17 04:34 All Systems PM: A 10-system review of systems was performed and is negative for pertinent findings except as documented above in the HPI. - Constitutional Constitutional: no chills, no fever(s), no night sweats - EENT Eyes: no change in vision, no discharge, no pain, no photophobia Ears: no ear discharge, no ear pain, no tinnitus Nose, mouth and throat: no dysphagia, no nasal discharge, no neck pain, no sore throat - Cardiovascular Cardiovascular ROS IM: as per HPI - Respiratory Respiratory: as per HPI - Gastrointestinal Gastrointestinal: as per HPI - Genitourinary Genitourinary: as per HPI - Musculoskeletal Musculoskeletal ROS IM: no numbness, no tingling - Integumentary Integumentary IM: no rash, no unusual bruising - Neurological Neurological ROS: no confusion, no convulsions, no focal weakness, no numbness, no tingling, no tremor(s) - Hematologic/Lymphatic Hematologic/Lymphatic: no easy bruising - Constitutional Vitals: Temp Pulse Resp BP Pulse Ox 97.8 F 121 18 159/106 96 08/18/17 15:05 08/18/17 15:05 08/18/17 15:05 08/18/17 15:05 08/18/17 15:05 General appearance: Present: A&O X 3, pleasant, no acute distress - Head Head exam: Present: atraumatic, normocephalic - Eye Eye exam: Present: PERRL, conjuntiva pink, sclera anicteric Pupils: Present: PERRL - Neck Neck exam general surgery: Present: supple, trachea midline. Absent: lymphadenopathy - Respiratory Respiratory exam: Present: CTAB. Absent: accessory muscle use, rales, rhonchi, wheezes - Cardiovascular Cardiovascular exam: Present: RRR, +S1, +S2. Absent: diastolic murmur, gallop, rubs, systolic murmur - GI/Abdominal GI/Abdominal exam: Present: normal bowel sounds, soft, no peritoneal signs. Absent: distended, tenderness - Extremities Exam Extremities exam: Present: warm, radial pulses palpable and symmetrical. Absent : calf tenderness, cyanotic, pedal edema - Neurological Exam Neurological exam: Present: alert, CN II-XII intact, oriented X3, no focal deficits. Absent: pronater drift, facial droop, speech deficit - Skin Skin exam: Present: dry, intact Internal Med - H&P Results - Labs CBC & Chem 7: 08/18/17 11:54 08/18/17 11:54 - Assessment and plan (1) Acute exacerbation of chronic obstructive pulmonary disease (COPD) Current Visit: Yes Status: Acute Assessment and plan: continue duonebs, steroids, Recent treatment with levaquin Give doxycycline Hemodynamically stable O2 requirement is at baseline (2) Anemia Current Visit: Yes Status: Chronic Assessment and plan: chronic, stable Qualifiers: Anemia type: other cause Other causes of anemia: chronic disease, other Qualified Code(s): D63.8 - Anemia in other chronic diseases classified elsewhere (3) Anxiety Current Visit: Yes Status: Chronic Assessment and plan: continue home meds (4) CHF (congestive heart failure) Current Visit: Yes Status: Chronic Assessment and plan: euvolemic continue home dose of lasix Qualifiers: Heart failure type: diastolic Heart failure chronicity: chronic Qualified Code(s): I50.32 - Chronic diastolic (congestive) heart failure (5) Chronic respiratory failure Current Visit: Yes Status: Chronic Assessment and plan: On 3 L O2 at home Same requirement, continue same Qualifiers: Respiratory failure complication: hypoxia Qualified Code(s): J96.11 - Chronic respiratory failure with hypoxia (6) Diabetes mellitus Current Visit: Yes Status: Chronic Assessment and plan: Basal, prandial and sliding scale insulin FS ACHS ADA diet Qualifiers: Diabetes mellitus type: type 2 Diabetes mellitus 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 insulin use: with alf use Diabetes mellitus complication status: with hyperglycemia Qualified Code(s): E11.65 - Type 2 diabetes mellitus with hyperglycemia; Z79.4 - director long term care (current) 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 (7) DVT prophylaxis Current Visit: Yes Status: Acute Assessment and plan: SQ heparin (8) GERD (gastroesophageal reflux disease) Current Visit: Yes Status: Chronic Assessment and plan: continue ranitidine Qualifiers: Esophagitis presence: esophagitis presence not specified Qualified Code(s) : K21.9 - Gastro-esophageal reflux disease without esophagitis (9) HLD (hyperlipidemia) Current Visit: Yes Status: Chronic Assessment and plan: continue home meds Qualifiers: Hyperlipidemia type: unspecified Qualified Code(s): E78.5 - Hyperlipidemia , unspecified (10) HTN (hypertension) Current Visit: Yes Status: Chronic Assessment and plan: continue home meds-on clonidine because thats the only one she can afford Resume toprol Qualifiers: Hypertension type: essential hypertension Qualified Code(s): I10 - Essential (primary) hypertension (11) Noncompliance with treatment regimen Current Visit: Yes Status: Chronic Assessment and plan: GHASSAN pate, patient is unable to afford her medications (12) Tachycardia Current Visit: Yes Status: Chronic Assessment and plan: Stress test negative 06/2017 Resume toprol - Time Spent With Patient Total time spent is greater than 50% in coordination of care (as documented) at patient's floor/unit and/or counseling patient:
[2017-08-18] MEDS: Ipratropium/Albuterol Neb 3 ML IH SCH ×3 (15:35→23:21)
[2017-08-18] MEDS: Sucralfate 1 GM TABLET PO SCH ×2 (15:47→21:08)
[2017-08-18] MEDS: Metoprolol XL (24 HR) Succ 50 MG TAB.ER.24H PO SCH (15:47)
[2017-08-18] MEDS ORDERED: Insulin LISPRO 300 UNITS/3 ML VIAL SQ SCH ×2 (16:30→21:00)
[2017-08-18] MEDS: cloNIDine HCl 0.1 MG TABLET PO SCH ×2 (16:58→21:08)
[2017-08-18] MEDS: Insulin LISPRO 300 UNITS/3 ML VIAL SQ SCH ×2 (16:58→21:08)
[2017-08-18] MEDS: Budesonide/Formoterol 160/4.5 MDI IH SCH (20:44)
[2017-08-18] MEDS: *HR* Heparin 5,000 UNIT/ML VIAL SQ SCH (21:07)
[2017-08-18] MEDS: Doxycycline 100 MG CAPSULE PO SCH (21:07)
[2017-08-18] MEDS: amLODIPine 5 MG TABLET PO SCH (21:08)
[2017-08-18] MEDS: Insulin DETEMIR 100 UNIT/ML X5UNITS SQ SCH (21:08)
[2017-08-18] MEDS ORDERED: *HR* LORazepam 0.5 MG TABLET PO ONE (21:25)
[2017-08-19] MEDS: Acetaminophen 325 MG TABLET PO PRN (01:48)
[2017-08-19] MEDS: Ipratropium/Albuterol Neb 3 ML IH SCH ×6 (03:40→23:28)
[2017-08-19 05:28] LABS: Basophils # 0.1 K/mcL (0.0-0.2); Basophils % 0.6 %; Hematocrit 33.9 % (35.3-44.9); Hemoglobin 10.5 g/dL (11.5-15.4); Immature Granulocytes % 4.4 % (0-4); Lymphocytes % 8.5 %; Mean Corpuscular Hemoglobin 26.1 pg (28.0-33.3); Mean Corpuscular Volume 84.3 fL (83.0-100.0); Mean Platelet Volume 10.9 fL (9.4-12.4); Monocytes # 0.5 K/mcL (0.0-1.3); Nucleated Red Blood Cells 0.2 /100 WBC (0); Platelet Count 326 K/mcL (140-400); Red Blood Count 4.02 M/mcL (3.82-4.97); Red Cell Distribution Width 16.8 % (11.5-14.5); Segmented Neutrophils % 82.5 %
[2017-08-19 05:44] LABS: BUN/Creatinine Ratio 32 (6-26); Blood Urea Nitrogen 20 mg/dL (6-20); Carbon Dioxide 29 mEq/L (23-29); Chloride 99 mEq/L (98-107); Glucose 230 mg/dL (70-105); Osmolality,Calculated 296 (280-300); Potassium 4.4 mEq/L (3.5-5.1); Sodium 138 mEq/L (136-145); eGFR For African Americans > 60 (> 60); eGFR For Non-African Americans > 60 (> 60)
[2017-08-19] MEDS: *HR* Heparin 5,000 UNIT/ML VIAL SQ SCH ×2 (06:21→16:59)
[2017-08-19] MEDS: Budesonide/Formoterol 160/4.5 MDI IH SCH ×2 (07:29→19:55)
[2017-08-19] MEDS: Insulin LISPRO 300 UNITS/3 ML VIAL SQ SCH ×8 (07:59→20:41)
[2017-08-19] MEDS: Metoprolol XL (24 HR) Succ 50 MG TAB.ER.24H PO SCH (08:01)
[2017-08-19] MEDS: Aspirin Enteric Coated 81 MG Tablet PO SCH (08:01)
[2017-08-19] MEDS: Sucralfate 1 GM TABLET PO SCH ×4 (08:01→20:03)
[2017-08-19] MEDS: Doxycycline 100 MG CAPSULE PO SCH ×2 (08:01→20:03)
[2017-08-19] MEDS: predniSONE 20 MG TABLET PO SCH (08:01)
[2017-08-19] MEDS: cloNIDine HCl 0.1 MG TABLET PO SCH ×4 (08:01→20:03)
[2017-08-19] MEDS: Famotidine 20 MG TABLET PO SCH (08:04)
--- NOTE | 2017-08-19 10:46 | Internal Med Progress Note ---
Date of Encounter: 08/19/17 Time of Encounter: 08:45 - Assessment and plan (1) Acute exacerbation of chronic obstructive pulmonary disease (COPD) Current Visit: Yes Status: Acute Assessment and plan: continue duonebs, steroids, doxy O2 requirement is at baseline (2) Anemia Current Visit: Yes Status: Chronic Assessment and plan: chronic, stable Qualifiers: Anemia type: other cause Other causes of anemia: chronic disease, other Qualified Code(s): D63.8 - Anemia in other chronic diseases classified elsewhere (3) Anxiety Current Visit: Yes Status: Chronic Assessment and plan: continue home meds (4) CHF (congestive heart failure) Current Visit: Yes Status: Chronic Assessment and plan: euvolemic continue home dose of lasix Qualifiers: Heart failure type: diastolic Heart failure chronicity: chronic Qualified Code(s): I50.32 - Chronic diastolic (congestive) heart failure (5) Chronic respiratory failure Current Visit: Yes Status: Chronic Assessment and plan: On 3 L O2 at home Same requirement, continue same Qualifiers: Respiratory failure complication: hypoxia Qualified Code(s): J96.11 - Chronic respiratory failure with hypoxia (6) Diabetes mellitus Current Visit: Yes Status: Chronic Assessment and plan: Basal, prandial and sliding scale insulin FS ACHS ADA diet Qualifiers: Diabetes mellitus type: type 2 Diabetes mellitus 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 insulin use: with 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 use Diabetes mellitus complication status: with hyperglycemia Qualified Code(s): E11.65 - Type 2 diabetes mellitus with hyperglycemia; 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 (7) DVT prophylaxis Current Visit: Yes Status: Acute Assessment and plan: SQ heparin (8) GERD (gastroesophageal reflux disease) Current Visit: Yes Status: Chronic Assessment and plan: continue ranitidine Qualifiers: Esophagitis presence: esophagitis presence not specified Qualified Code(s) : K21.9 - Gastro-esophageal reflux disease without esophagitis (9) HLD (hyperlipidemia) Current Visit: Yes Status: Chronic Assessment and plan: continue home meds Qualifiers: Hyperlipidemia type: unspecified Qualified Code(s): E78.5 - Hyperlipidemia , unspecified (10) HTN (hypertension) Current Visit: Yes Status: Chronic Assessment and plan: continue home meds-on clonidine because thats the only one she can afford continue toprol Qualifiers: Hypertension type: essential hypertension Qualified Code(s): I10 - Essential (primary) hypertension (11) Noncompliance with treatment regimen Current Visit: Yes Status: Chronic Assessment and plan: GHASSAN pate, patient is unable to afford her medications (12) Tachycardia Current Visit: Yes Status: Chronic Assessment and plan: Stress test negative 06/2017 continue toprol - Time Spent With Patient Total time spent is greater than 50% in coordination of care (as documented) at patient's floor/unit and/or counseling patient: - Subjective Interval history: Seen and examined at bedside No new complains States "breathing is a little better", "can i go home tmrw" - Constitutional Vitals: Temp Pulse Resp BP Pulse Ox 97.6 F 76 17 154/72 96 08/19/17 07:42 08/19/17 07:42 08/19/17 07:42 08/19/17 07:42 08/19/17 08:07 General appearance: Present: A&O X 3, pleasant, no acute distress - Head Head exam: Present: atraumatic, normocephalic - Eye Eye exam: Present: PERRL, conjuntiva pink, sclera anicteric Pupils: Present: PERRL - Neck Neck exam general surgery: Present: supple, trachea midline. Absent: lymphadenopathy - Respiratory Respiratory exam: Present: CTAB. Absent: accessory muscle use, rales, rhonchi, wheezes - Cardiovascular Cardiovascular exam: Present: RRR, +S1, +S2. Absent: diastolic murmur, gallop, rubs, systolic murmur - GI/Abdominal GI/Abdominal exam: Present: normal bowel sounds, soft, no peritoneal signs. Absent: distended, tenderness - Extremities Exam Extremities exam: Present: warm, radial pulses palpable and symmetrical. Absent : calf tenderness, cyanotic, pedal edema - Neurological Exam Neurological exam: Present: alert, CN II-XII intact, oriented X3, no focal deficits. Absent: pronater drift, facial droop, speech deficit - Skin Skin exam: Present: dry, intact Internal Medicine: Result - Labs CBC & Chem 7: 08/19/17 05:02 08/19/17 05:02 Labs: Short CBC 08/19/17 Range/Units 05:02 WBC 12.1 H (4.3-11.1) K/mcL Hgb 10.5 L (11.5-15.4) g/dL Hct 33.9 L (35.3-44.9) % Plt Count 326 (140-400) K/mcL Neutrophils # 10.0 H (1.6-8.9) K/mcL BMP 08/19/17 05:02 Sodium 138 Potassium 4.4 D Chloride 99 Carbon Dioxide 29 BUN 20 Creatinine 0.62 Glucose 230 H Calcium 9.0 Consult Discharge Plan - Plan Referrals: Domitila Lau MD [Primary Care Provider] -
[2017-08-19] MEDS: amLODIPine 5 MG TABLET PO SCH (20:03)
[2017-08-19] MEDS ORDERED: *HR* OxyCODONE/APAP 5/325 TABLET PO ONE (20:20)
[2017-08-19] MEDS: Insulin DETEMIR 100 UNIT/ML X5UNITS SQ SCH (20:31)
[2017-08-20] MEDS: Ipratropium/Albuterol Neb 3 ML IH SCH ×2 (03:56→08:22)
[2017-08-20] MEDS: *HR* Heparin 5,000 UNIT/ML VIAL SQ SCH (04:53)
[2017-08-20 05:06] LABS: Basophils # 0.1 K/mcL (0.0-0.2); Basophils % 0.4 %; Eosinophils # 0.1 K/mcL (0.0-0.6); Eosinophils % 0.5 %; Hematocrit 34.4 % (35.3-44.9); Hemoglobin 10.6 g/dL (11.5-15.4); Immature Granulocytes % 4.6 % (0-4); Lymphocytes # 2.4 K/mcL (0.6-4.6); Lymphocytes % 20.9 %; Mean Corpuscular HGB Conc 30.8 g/dL (31.6-35.5); Mean Corpuscular Hemoglobin 26.7 pg (28.0-33.3); Mean Corpuscular Volume 86.6 fL (83.0-100.0); Mean Platelet Volume 10.7 fL (9.4-12.4); Monocytes # 0.8 K/mcL (0.0-1.3); Monocytes % 6.6 %; Neutrophils # 7.8 K/mcL (1.6-8.9); Nucleated Red Blood Cells 0.3 /100 WBC (0); Platelet Count 320 K/mcL (140-400); Red Blood Count 3.97 M/mcL (3.82-4.97); Red Cell Distribution Width 16.5 % (11.5-14.5)
[2017-08-20 07:02] VITALS: BP 145/75
[2017-08-20] MEDS: Insulin LISPRO 300 UNITS/3 ML VIAL SQ SCH ×2 (07:46→07:47)
[2017-08-20] MEDS: Sucralfate 1 GM TABLET PO SCH (07:47)
[2017-08-20] MEDS: Famotidine 20 MG TABLET PO SCH (07:47)
[2017-08-20] MEDS: Metoprolol XL (24 HR) Succ 50 MG TAB.ER.24H PO SCH (07:47)
[2017-08-20] MEDS: Doxycycline 100 MG CAPSULE PO SCH (07:47)
[2017-08-20] MEDS: Acetaminophen 325 MG TABLET PO PRN (07:47)
[2017-08-20] MEDS: predniSONE 20 MG TABLET PO SCH (07:47)
[2017-08-20] MEDS: Aspirin Enteric Coated 81 MG Tablet PO SCH (07:47)
[2017-08-20] MEDS: cloNIDine HCl 0.1 MG TABLET PO SCH (07:48)
[2017-08-20] MEDS: Budesonide/Formoterol 160/4.5 MDI IH SCH (08:22)
[2017-08-20] MEDS ORDERED: Furosemide 40 MG TABLET PO SCH (09:00)
--- NOTE | 2017-08-20 09:36 | Discharge Summary ---
- NOTES TO OUTPATIENT PROVIDER Notes to Outpatient Provider: Patient re-admitted for COPDE. She again states to the that she has all her medications and is able to afford them. Discharged home on doxy and prednisone. Follow up with PCP Date of Encounter: 08/20/17 Time of Encounter: 09:36 - Discharge Diagnosis (1) Acute exacerbation of chronic obstructive pulmonary disease (COPD) Priority: Primary Status: Acute (2) Anemia Priority: Secondary Status: Chronic Qualifiers: Anemia type: other cause Other causes of anemia: chronic disease, other Qualified Code(s): D63.8 - Anemia in other chronic diseases classified elsewhere (3) Anxiety Priority: Secondary Status: Chronic (4) CHF (congestive heart failure) Priority: Secondary Status: Chronic Qualifiers: Heart failure type: diastolic Heart failure chronicity: chronic Qualified Code(s): I50.32 - Chronic diastolic (congestive) heart failure (5) Chronic respiratory failure Priority: Secondary Status: Chronic Qualifiers: Respiratory failure complication: hypoxia Qualified Code(s): J96.11 - Chronic respiratory failure with hypoxia (6) Diabetes mellitus Priority: Secondary Status: Chronic Qualifiers: Diabetes mellitus type: type 2 Diabetes mellitus intermediate card tender insulin use: with intermediate card tender use Diabetes mellitus complication status: with hyperglycemia Qualified Code(s): E11.65 - Type 2 diabetes mellitus with hyperglycemia; Z79.4 - half-way (current) 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 (7) DVT prophylaxis Priority: Primary Status: Acute (8) GERD (gastroesophageal reflux disease) Priority: Secondary Status: Chronic Qualifiers: Esophagitis presence: esophagitis presence not specified Qualified Code(s) : K21.9 - Gastro-esophageal reflux disease without esophagitis (9) HLD (hyperlipidemia) Priority: Secondary Status: Chronic Qualifiers: Hyperlipidemia type: unspecified Qualified Code(s): E78.5 - Hyperlipidemia , unspecified (10) HTN (hypertension) Priority: Secondary Status: Chronic Qualifiers: Hypertension type: essential hypertension Qualified Code(s): I10 - Essential (primary) hypertension (11) Noncompliance with treatment regimen Priority: Primary Status: Chronic (12) Tachycardia Priority: Primary Status: Resolved Hospital course: Ms. Ren is a 57 year old female with PMH of Chronic tachycardia, COPD, Chronic resp failure on 3L home O2, HTN, DM, HLD, Anxiety She was recently discharged home after being managed for COPDE but represented with SOB and tachycardia. She reported shortness of breath with minimal activities, denies chest pain, leg swelling, rhinorrhea, sore throat. She had no contacts with sick persons, and did not travel. She reports no worsening cough, she also says she has been compliant with her medications She had no fever, nausea or vomiting or diarrhea, noo symptoms Work up in the ER revealed no significant findings, her O2 is at her baseline and she is not wheezing on exam on evaluation She was placed on observation for COPDE and managed with steroids, doxycycline . Her O2 requirement remained at baseline, she had no complications She denied non-compliance with her medications but was unable to verify most of her medications verbally, she was also told to have family bring her med bottles , but this was not done, she also reported to the that she had and could afford her medications. She is seen this mrn at bedside in her stable state of health, reports resolution of all her symptoms and asking to be discharged home, chest is CTAB and there are no new symptoms Compliance reinforced and discharged home on doxy and prednisone Follow up with PCP Discharge discussed with: patient, nurse, social work - Time Spent with Patient Total time spent providing and/or coordinating discharge services: Greater than 30 minutes - Discharge Medications Prescriptions: Doxycycline 100 mg PO BID #8 capsule Metoprolol XL (24 HR) Succ [Toprol Xl] 50 mg PO DAILY #30 tab.er.24h predniSONE [PredniSONE] 40 mg PO DAILY #6 tablet Home Medications: Oxygen 3 l IH AD 07/19/16 [History] raNITIdine HCl [Zantac] 150 mg PO DAILY 11/20/16 [History] Aspirin [Lo-Dose Aspirin EC] 81 mg PO DAILY 01/12/17 [History] Nitroglycerin [Nitrostat] 0.4 mg PO Q5M 06/03/17 [History] Albuterol Sulfate [Ventolin Hfa] 2 puff IH Q4H PRN #1 inh 07/07/17 [Rx] Furosemide [Lasix] 40 mg PO DAILY PRN #30 tablet 07/07/17 [Rx] Ipratropium/Albuterol Neb [Duoneb] 3 ml IH Q4HR #1 pack 07/07/17 [Rx] amLODIPine [Norvasc] 5 mg PO HS #30 tab 07/07/17 [Rx] cloNIDine HCl [Clonidine HCl] 0.3 mg PO QID #90 tablet 07/07/17 [Rx] Budesonide/Formoterol 160/4.5 [Symbicort 160/4.5] 2 puff IH BIDR 08/06/17 [ History] Sucralfate [Carafate] 1 gm PO QIDAC #120 tablet 08/08/17 [Rx] Insulin NPH Hum/Reg Insulin Hm [Novolin 70-30 100 Unit/ml Vial] 0 unit SQ TID PRN 08/18/17 [History] Doxycycline 100 mg PO BID #8 capsule 08/20/17 [Rx] Metoprolol XL (24 HR) Succ [Toprol Xl] 50 mg PO DAILY #30 tab.er.24h 08/20/17 [ Rx] predniSONE [PredniSONE] 40 mg PO DAILY #6 tablet 08/20/17 [Rx] Allergies/Adverse Reactions: 3 Allergy/AdvReac Type Severity Reaction Status Date / Time NSAIDS (Non-Steroidal Allergy Unknown See Verified 08/06/17 04:34 Anti-Inflamma Comments Penicillins Allergy Unknown Hives Verified 08/06/17 04:34 lisinopril AdvReac Cough Verified 08/06/17 04:34 lorazepam [From Ativan] AdvReac Confusion Verified 08/06/17 04:34 tramadol AdvReac Nausea Verified 08/06/17 04:34 Date of admission: 08/18/17 13:28 Primary care physician: Domitila Lau MD Consults: 08/18/17 14:56 Consult to Cullet Crusher [CONS] Routine Reason for SW Consult: Inability to afford medications Discharging clinician: Obed Krause Anticipated date of discharge: 08/20/17 - Constitutional Vitals: Temp Pulse Resp BP Pulse Ox 97.5 F L 71 18 145/75 95 08/20/17 06:59 08/20/17 06:59 08/20/17 08:23 08/20/17 06:59 08/20/17 08:23 General appearance: Present: A&O X 3, pleasant, no acute distress - Head Head exam: Present: atraumatic, normocephalic - Eye Eye exam: Present: PERRL, conjuntiva pink, sclera anicteric Pupils: Present: PERRL - Neck Neck exam general surgery: Present: supple, trachea midline. Absent: lymphadenopathy - Respiratory Respiratory exam: Present: CTAB. Absent: accessory muscle use, rales, rhonchi, wheezes - Cardiovascular Cardiovascular exam: Present: RRR, +S1, +S2. Absent: diastolic murmur, gallop, rubs, systolic murmur - GI/Abdominal GI/Abdominal exam: Present: normal bowel sounds, soft, no peritoneal signs. Absent: distended, tenderness - Extremities Exam Extremities exam: Present: warm, radial pulses palpable and symmetrical. Absent : calf tenderness, cyanotic, pedal edema - Neurological Exam Neurological exam: Present: alert, CN II-XII intact, oriented X3, no focal deficits. Absent: pronater drift, facial droop, speech deficit - Skin Skin exam: Present: dry, intact - Patient Status Disposition: Home, Self-Care Condition: Good Functional capacity at discharge: independent ambulation Overall status at discharge: patient is back to baseline - Discharge Instructions Follow Up With: Domitila Lau MD [Primary Care Provider] - - Diet and Activity Activity: wear oxygen at all times Diet: diabetic diet, low fat, low cholesterol, low salt diet
--- NOTE | 2017-08-22 06:33 | Electrocardiograph Report ---
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
== END 2017-08-20 10:16 | disposition home or self-care (01) ==
LOC: 2ANU 11:22 → EMEROO 11:22 → SUATTDRO 13:28 → 2ANU 14:07
PROVIDERS: ADMIT Internal Medicine; ATTEND Internal Medicine

== ENCOUNTER 2017-10-09 00:05 | Inpatient (IN) ==
[2017-10-09 01:04] LABS: Hematocrit 40.4 % (35.3-44.9); Hemoglobin 12.3 g/dL (11.5-15.4); Mean Corpuscular HGB Conc 30.4 g/dL (31.6-35.5); Mean Corpuscular Hemoglobin 26.1 pg (28.0-33.3); Mean Corpuscular Volume 85.6 fL (83.0-100.0); Mean Platelet Volume 10.5 fL (9.4-12.4); Nucleated Red Blood Cells 0.6 /100 WBC (0); Platelet Count 373 K/mcL (140-400); Red Blood Count 4.72 M/mcL (3.82-4.97); Red Cell Distribution Width 18.2 % (11.5-14.5)
[2017-10-09 01:26] LABS: BUN/Creatinine Ratio 29 (6-26); Blood Urea Nitrogen 22 mg/dL (6-20); Carbon Dioxide 23 mEq/L (23-29); Chloride 108 mEq/L (98-107); Glucose 443 mg/dL (70-105); Osmolality,Calculated 316 (280-300); Potassium 3.7 mEq/L (3.5-5.1); Sodium 142 mEq/L (136-145); eGFR For Non-African Americans > 60 (> 60)
[2017-10-09 01:27] LABS: Lymphocytes # 2.9 K/mcL (0.6-4.6); Monocytes # 0.4 K/mcL (0.0-1.3); Neutrophils # 6.1 K/mcL (1.6-8.9); Platelet Estimate Normal (Normal)
[2017-10-09 01:27] LABS: Troponin I < 0.03 ng/mL (< 0.04)
--- NOTE | 2017-10-09 02:20 | Emergency Department Note ---
Disposition Clinical Impression: COPD with acute exacerbation Hypertension Qualifiers: Hypertension type: unspecified Qualified Code(s): I10 - Essential (primary) hypertension Back pain Qualifiers: Back pain location: thoracic back pain Chronicity: chronic Back pain laterality : left Qualified Code(s): M54.6 - Pain in thoracic spine; G89.29 - Other chronic pain Disposition: Admitted As Inpatient Condition: Fair Referrals: Domitila Lau MD [Primary Care Provider] - Forms: ED Satisfaction Letter Time of Disposition: 05:31 SOB HPI - General Chief Complaint: ED Shortness of Breath/Dyspnea Stated Complaint: difficulty in breathing Time Seen by Provider: 10/09/17 01:05 Source: patient Nursing Notes Reviewed: Yes Vital Signs Reviewed: Yes - History of Present Illness 57-year-old female presents from home for evaluation of shortness of breath. Progressive in onset since yesterday. Patient has known COPD requiring baseline supplental oxygen 3 L. Her home oxygen concentrator broke yesterday. Her shortness of breath is not improved with her home breathing treatments. She has no cough. 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 Torres at [facility] with pending surgery and one half weeks. 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 History of malignant hypertension on clonidine 0.3 mg 4 times a day, Norvasc 10 mg daily, hydrochlorothiazide unknown milligrams daily. Also hyperlipidemia, diabetes mellitus. History of COPD oxygen dependent. ROS: Positive: As above Negative: Fever, chills, nausea, vomiting, chest pains, palpitations, - Related Data Home Medications Medication Instructions Recorded Confirmed Oxygen 3 l IH AD 07/19/16 08/18/17 raNITIdine HCl [Zantac] 150 mg PO DAILY 11/20/16 08/18/17 Aspirin [Lo-Dose Aspirin EC] 81 mg PO DAILY 01/12/17 08/18/17 Nitroglycerin [Nitrostat] 0.4 mg PO Q5M 06/03/17 08/18/17 Budesonide/Formoterol 160/4.5 2 puff IH BIDR 08/06/17 08/18/17 [Symbicort 160/4.5] Insulin NPH Hum/Reg Insulin Hm 0 unit SQ TID PRN 08/18/17 08/18/17 [Novolin 70-30 100 Unit/ml Vial] Previous Rx's Medication Instructions Recorded Albuterol Sulfate [Ventolin Hfa] 2 puff IH Q4H PRN #1 inh 07/07/17 Furosemide [Lasix] 40 mg PO DAILY PRN #30 tablet 07/07/17 Ipratropium/Albuterol Neb [Duoneb] 3 ml IH Q4HR #1 pack 07/07/17 amLODIPine [Norvasc] 5 mg PO HS #30 tab 07/07/17 cloNIDine HCl [Clonidine HCl] 0.3 mg PO QID #90 tablet 07/07/17 Sucralfate [Carafate] 1 gm PO QIDAC #120 tablet 08/08/17 Doxycycline 100 mg PO BID #8 capsule 08/20/17 Metoprolol XL (24 HR) Succ [Toprol 50 mg PO DAILY #30 tab.er.24h 08/20/17 Xl] predniSONE [PredniSONE] 40 mg PO DAILY #6 tablet 08/20/17 levoFLOXacin [Levaquin] 750 mg PO DAILY #5 tablet 09/01/17 predniSONE [PredniSONE] 60 mg PO DAILY #15 tablet 09/01/17 predniSONE [PredniSONE] 40 mg PO DAILY #6 tablet 10/04/17 Oxycodone HCl 5 mg PO TID PRN 3 Days #9 tablet 10/07/17 predniSONE [PredniSONE] 10 mg PO DAILY #4 tablet 10/07/17 Allergies Allergy/AdvReac Type Severity Reaction Status Date / Time NSAIDS (Non-Steroidal Allergy Unknown See Verified 08/06/17 04:34 Anti-Inflamma Comments Penicillins Allergy Unknown Hives Verified 08/06/17 04:34 lisinopril AdvReac Cough Verified 08/06/17 04:34 lorazepam [From Ativan] AdvReac Confusion Verified 08/06/17 04:34 tramadol AdvReac Nausea Verified 08/06/17 04:34 All systems ED: reviewed and negative except as stated. 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 Head: atraumatic, normocephalic Eye: normal appearance, no scleral icterus, no conjunctival injection ENT: mucous membranes moist, normal external ear exam Neck: normal inspection, trachea midline, full ROM Chest: normal inspection, symmetric chest rise Respiratory: Poor respiratory effort. Prolonged expiratory phase. Bilateral breath sounds are diminished with scattered wheeze; no crackles or rhonchi. Cardiovascular: Regular rate and rhythm. No clicks, rubs, gallops, or murmors. Normal heart sounds. Abdomen: Bowel sounds present normoactive x-4 quadrants. Abdomen is soft, nondistended, and nontender. No guarding or rebound. No organomegaly noted. Musculoskeletal: Spontaneously moving all extremities. Skin: warm, dry, intact. Neuro: Alert and oriented x4. Sensation light touch intact. Psych: Patient's affect is appropriate for situation. - General General appearance: alert Course Course Narrative: Clinically, patient appears to have an acute exacerbation of COPD. Breathing treatments and Solu-Medrol. Chest x-ray pending. Will provide pain control for the patient's left subscapular pain from her aortic pathology or to being followed by her vascular surgeon. She is hypertensive and notes that her blood pressure will likely improve with pain management. Will reassess. She has not missed any of her antihypertensive medication dosing today. Patient's blood pressure did slightly improve with pain management however, she remained hypertensive in the 160s and tachycardic in the 120s. Will provide additional analgesia as well as 10 mg IV labetalol. Chest x-ray is unremarkable. Patient's pulmonary exam did not improve after triple dose of DuoNeb's. IV SoluMedrol given. Patient has elevated lactic acid; suspect this is secondary to hypoxia and increased work of breathing. Patient continues to tolerate nasal cannula between 3-4 L. No indication at this time that she will decompensate to require BiPAP. I discussed the above with the patient. She is agreeable to admission for continued pulmonary support. Additionally, she requires continuous supplemental oxygen and has no oxygen supply at home. I discussed the above with the admitting hospitalist, Dr. Perkins, who agrees to accept the patient for acute exacerbation of COPD. Vital Signs Temperature 98.5 F 10/09/17 00:13 Pulse Rate 118 10/09/17 00:13 Respiratory Rate 24 10/09/17 00:13 Blood Pressure 186/90 10/09/17 00:13 O2 Sat by Pulse Oximetry 98 10/09/17 00:13 Temperature 98.5 F 10/09/17 00:13 Pulse Rate 112 10/09/17 04:52 Respiratory Rate 26 10/09/17 04:52 Blood Pressure 170/108 10/09/17 04:52 O2 Sat by Pulse Oximetry 95 10/09/17 04:52 Oxygen Delivery Oxygen Delivery Nasal Cannula Shortness of Breath/Dyspnea - Lab Data Result diagrams: 10/09/17 00:45 10/09/17 00:24 Lab Results 10/09/17 10/09/17 10/09/17 Range/Units 00:24 00:24 00:45 WBC 9.8 (4.3-11.1) K/mcL RBC 4.72 (3.82-4.97) M/mcL Hgb 12.3 (11.5-15.4) g/dL Hct 40.4 (35.3-44.9) % MCV 85.6 (83.0-100.0) fL MCH 26.1 L (28.0-33.3) pg MCHC 30.4 L (31.6-35.5) g/dL RDW 18.2 H (11.5-14.5) % Plt Count 373 (140-400) K/mcL MPV 10.5 (9.4-12.4) fL Immature Gran % Test Not Performed Seg Neutrophils % 62.0 % Lymphocytes % 30.0 % Monocytes % 4.0 % Eosinophils % Test Not Performed Basophils % Test Not Performed Myelocytes % 4.0 H (0) % Neutrophils # 6.1 (1.6-8.9) K/mcL Lymphocytes # 2.9 (0.6-4.6) K/mcL Monocytes # 0.4 (0.0-1.3) K/mcL Eosinophils # Test Not Performed Basophils # Test Not Performed Nucleated RBCs/100 WBC 0.6 H (0) /100 WBC Platelet Estimate Normal (Normal) Sodium 142 (136-145) mEq/L Potassium 3.7 (3.5-5.1) mEq/L Chloride 108 H (98-107) mEq/L Carbon Dioxide 23 (23-29) mEq/L BUN 22 H (6-20) mg/dL Creatinine 0.76 (0.60-1.20) mg/dL Est GFR ( Amer) > 60 (> 60) Est GFR (Non-Af Amer) > 60 (> 60) BUN/Creatinine Ratio 29 H (6-26) Glucose 443 H (70-105) mg/dL Calculated Osmolality 316 H (280-300) Lactic Acid (0.5-2.2) mmol/L Calcium 9.0 (8.6-10.3) mg/dL Troponin I < 0.03 (< 0.04) ng/mL B-Natriuretic Peptide 79 (Less than 100) pg/mL 10/09/17 10/09/17 Range/Units 00:45 04:48 WBC (4.3-11.1) K/mcL RBC (3.82-4.97) M/mcL Hgb (11.5-15.4) g/dL Hct (35.3-44.9) % MCV (83.0-100.0) fL MCH (28.0-33.3) pg MCHC (31.6-35.5) g/dL RDW (11.5-14.5) % Plt Count (140-400) K/mcL MPV (9.4-12.4) fL Immature Gran % Seg Neutrophils % % Lymphocytes % % Monocytes % % Eosinophils % Basophils % Myelocytes % (0) % Neutrophils # (1.6-8.9) K/mcL Lymphocytes # (0.6-4.6) K/mcL Monocytes # (0.0-1.3) K/mcL Eosinophils # Basophils # Nucleated RBCs/100 WBC (0) /100 WBC Platelet Estimate (Normal) Sodium (136-145) mEq/L Potassium (3.5-5.1) mEq/L Chloride (98-107) mEq/L Carbon Dioxide (23-29) mEq/L BUN (6-20) mg/dL Creatinine (0.60-1.20) mg/dL Est GFR ( Amer) (> 60) Est GFR (Non-Af Amer) (> 60) BUN/Creatinine Ratio (6-26) Glucose (70-105) mg/dL Calculated Osmolality (280-300) Lactic Acid 2.3 H 1.6 (0.5-2.2) mmol/L Calcium (8.6-10.3) mg/dL Troponin I (< 0.04) ng/mL B-Natriuretic Peptide (Less than 100) pg/mL
[2017-10-09] MEDS ORDERED: *HR* Morphine 2 MG/ML SYRINGE IVP PRN (02:21)
[2017-10-09] MEDS ORDERED: Ipratropium/Albuterol Neb 3 ML IH ONE (02:21)
[2017-10-09] MEDS ORDERED: methylPREDNISolone 125 MG/2 ML VIAL IVP ONE (02:53)
[2017-10-09] MEDS ORDERED: 0.9 % Sodium Chloride 500 ML IVC ONE (04:16)
[2017-10-09] MEDS ORDERED: *HR* Labetalol 100 MG/20 ML MDV IVP ONE (04:16)
[2017-10-09] MEDS ORDERED: *HR* Morphine 2 MG/ML SYRINGE IVP ONE (04:20)
--- NOTE | 2017-10-09 05:15 | Emergency Department Note ---
Disposition Clinical Impression: COPD with acute exacerbation Hypertension Qualifiers: Hypertension type: unspecified Qualified Code(s): I10 - Essential (primary) hypertension Back pain Qualifiers: Back pain location: thoracic back pain Chronicity: chronic Back pain laterality : left Qualified Code(s): M54.6 - Pain in thoracic spine Disposition: Admitted As Inpatient Condition: Fair General Adult HPI - General Chief complaint: ED Shortness of Breath/Dyspnea Stated complaint: difficulty in breathing Time Seen by Provider: 10/09/17 01:05 Source: patient Nursing Notes Reviewed: Yes Vital Signs Reviewed: Yes - History of Present Illness Pain Scale: 0 - Related Data Home Medications Medication Instructions Recorded Confirmed Oxygen 3 l IH AD 07/19/16 08/18/17 raNITIdine HCl [Zantac] 150 mg PO DAILY 11/20/16 08/18/17 Aspirin [Lo-Dose Aspirin EC] 81 mg PO DAILY 01/12/17 08/18/17 Nitroglycerin [Nitrostat] 0.4 mg PO Q5M 06/03/17 08/18/17 Budesonide/Formoterol 160/4.5 2 puff IH BIDR 08/06/17 08/18/17 [Symbicort 160/4.5] Insulin NPH Hum/Reg Insulin Hm 0 unit SQ TID PRN 08/18/17 08/18/17 [Novolin 70-30 100 Unit/ml Vial] Previous Rx's Medication Instructions Recorded Albuterol Sulfate [Ventolin Hfa] 2 puff IH Q4H PRN #1 inh 07/07/17 Furosemide [Lasix] 40 mg PO DAILY PRN #30 tablet 07/07/17 Ipratropium/Albuterol Neb [Duoneb] 3 ml IH Q4HR #1 pack 07/07/17 amLODIPine [Norvasc] 5 mg PO HS #30 tab 07/07/17 cloNIDine HCl [Clonidine HCl] 0.3 mg PO QID #90 tablet 07/07/17 Sucralfate [Carafate] 1 gm PO QIDAC #120 tablet 08/08/17 Doxycycline 100 mg PO BID #8 capsule 08/20/17 Metoprolol XL (24 HR) Succ [Toprol 50 mg PO DAILY #30 tab.er.24h 08/20/17 Xl] predniSONE [PredniSONE] 40 mg PO DAILY #6 tablet 08/20/17 levoFLOXacin [Levaquin] 750 mg PO DAILY #5 tablet 09/01/17 predniSONE [PredniSONE] 60 mg PO DAILY #15 tablet 09/01/17 predniSONE [PredniSONE] 40 mg PO DAILY #6 tablet 10/04/17 Oxycodone HCl 5 mg PO TID PRN 3 Days #9 tablet 10/07/17 predniSONE [PredniSONE] 10 mg PO DAILY #4 tablet 10/07/17 Allergies Allergy/AdvReac Type Severity Reaction Status Date / Time NSAIDS (Non-Steroidal Allergy Unknown See Verified 08/06/17 04:34 Anti-Inflamma Comments Penicillins Allergy Unknown Hives Verified 08/06/17 04:34 lisinopril AdvReac Cough Verified 08/06/17 04:34 lorazepam [From Ativan] AdvReac Confusion Verified 08/06/17 04:34 tramadol AdvReac Nausea Verified 08/06/17 04:34 Past Medical History - Past Medical History Medical history: Reports: asthma, COPD, diabetes, GERD, hyperlipidemia, hypertension, renal disease Surgical history: Reports: appendectomy, cholecystectomy, knee replacement Psychiatric history: Reports: anxiety, depression 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 , bilateral 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, other - Social History Smoking Status: Former smoker Smokeless Tobacco Status: No Alcohol use: Reports: none Drug use: Reports: none Physical Exam - General General appearance: alert Course Vital Signs Temperature 98.5 F 10/09/17 00:13 Pulse Rate 118 10/09/17 00:13 Respiratory Rate 24 10/09/17 00:13 Blood Pressure 186/90 10/09/17 00:13 O2 Sat by Pulse Oximetry 98 10/09/17 00:13 Temperature 98.5 F 10/09/17 00:13 Pulse Rate 95 10/09/17 05:51 Respiratory Rate 21 10/09/17 05:51 Blood Pressure 187/105 10/09/17 05:51 O2 Sat by Pulse Oximetry 97 10/09/17 05:51 Oxygen Delivery Oxygen Delivery Nasal Cannula Medical Decision Making - Medical Records Medical records reviewed: Yes I reviewed the patient's medical records. - Lab Data Lab results reviewed: Yes I reviewed the patient's lab results. Result diagrams: 10/09/17 00:45 10/09/17 00:24 Lab Results 10/09/17 10/09/17 10/09/17 Range/Units 00:24 00:24 00:45 WBC 9.8 (4.3-11.1) K/mcL RBC 4.72 (3.82-4.97) M/mcL Hgb 12.3 (11.5-15.4) g/dL Hct 40.4 (35.3-44.9) % MCV 85.6 (83.0-100.0) fL MCH 26.1 L (28.0-33.3) pg MCHC 30.4 L (31.6-35.5) g/dL RDW 18.2 H (11.5-14.5) % Plt Count 373 (140-400) K/mcL MPV 10.5 (9.4-12.4) fL Immature Gran % Test Not Performed Seg Neutrophils % 62.0 % Lymphocytes % 30.0 % Monocytes % 4.0 % Eosinophils % Test Not Performed Basophils % Test Not Performed Myelocytes % 4.0 H (0) % Neutrophils # 6.1 (1.6-8.9) K/mcL Lymphocytes # 2.9 (0.6-4.6) K/mcL Monocytes # 0.4 (0.0-1.3) K/mcL Eosinophils # Test Not Performed Basophils # Test Not Performed Nucleated RBCs/100 WBC 0.6 H (0) /100 WBC Platelet Estimate Normal (Normal) Sodium 142 (136-145) mEq/L Potassium 3.7 (3.5-5.1) mEq/L Chloride 108 H (98-107) mEq/L Carbon Dioxide 23 (23-29) mEq/L BUN 22 H (6-20) mg/dL Creatinine 0.76 (0.60-1.20) mg/dL Est GFR ( Amer) > 60 (> 60) Est GFR (Non-Af Amer) > 60 (> 60) BUN/Creatinine Ratio 29 H (6-26) Glucose 443 H (70-105) mg/dL Calculated Osmolality 316 H (280-300) Lactic Acid (0.5-2.2) mmol/L Calcium 9.0 (8.6-10.3) mg/dL Troponin I < 0.03 (< 0.04) ng/mL B-Natriuretic Peptide 79 (Less than 100) pg/mL 18 10/09/17 Range/Units 00:45 04:48 WBC (4.3-11.1) K/mcL RBC (3.82-4.97) M/mcL Hgb (11.5-15.4) g/dL Hct (35.3-44.9) % MCV (83.0-100.0) fL MCH (28.0-33.3) pg MCHC (31.6-35.5) g/dL RDW (11.5-14.5) % Plt Count (140-400) K/mcL MPV (9.4-12.4) fL Immature Gran % Seg Neutrophils % % Lymphocytes % % Monocytes % % Eosinophils % Basophils % Myelocytes % (0) % Neutrophils # (1.6-8.9) K/mcL Lymphocytes # (0.6-4.6) K/mcL Monocytes # (0.0-1.3) K/mcL Eosinophils # Basophils # Nucleated RBCs/100 WBC (0) /100 WBC Platelet Estimate (Normal) Sodium (136-145) mEq/L Potassium (3.5-5.1) mEq/L Chloride (98-107) mEq/L Carbon Dioxide (23-29) mEq/L BUN (6-20) mg/dL Creatinine (0.60-1.20) mg/dL Est GFR ( Amer) (> 60) Est GFR (Non-Af Amer) (> 60) BUN/Creatinine Ratio (6-26) Glucose (70-105) mg/dL Calculated Osmolality (280-300) Lactic Acid 2.3 H 1.6 (0.5-2.2) mmol/L Calcium (8.6-10.3) mg/dL Troponin I (< 0.04) ng/mL B-Natriuretic Peptide (Less than 100) pg/mL - Radiology Data Radiology results reviewed: Yes I reviewed the patient's radiology results. Chest X-Ray 10/09/17 00:24 IMPRESSION: No acute disease. D/ / Wai Infante MD / Wai Infante MD Interpreting Provider: Wai Infante MD - EKG Data EKG #1 EKG attestation: Yes I reviewed and interpreted this EKG. EKG results narrative: EKG shows a sinus tachycardia with ventricular rate of 114. No ectopy. No acute ST segment elevation or depression. Attestation Statement - Attestation Attestation: I, Robert Hyde MD, personally evaluated this patient and discussed their management with the resident physician. I reviewed the resident's note and agree with the documented findings, medical decision making, and plan of care. 57-year-old female who is well known to this department presents complaining of increased shortness of breath for the past day or 2. Patient is on home oxygen but feels that her oxygen concentrator is malfunctioning. She has had some increased cough but no sputum production. No fever. She complains of pain in her lungs and states it hurts to breathe. On examination patient is a well-developed well-nourished female in no acute distress. She is alert and oriented 3. There is no cyanosis or diaphoresis. Chest is nontender to palpation. Breath sounds are decreased bilaterally with scattered bilateral expiratory wheezes. Heart is regular with a moderate tachycardia. Abdomen soft and nontender with normal bowel sounds. Labs reviewed. No acute changes on EKG. Chest x-ray negative. The hospitalist, Dr. Perkins, was consulted and accepted admission of the patient.
[2017-10-09] MEDS ORDERED: Ipratropium/Albuterol Neb 3 ML IH SCH (08:00)
[2017-10-09] MEDS ORDERED: Labetalol 200 MG in D5% in Water 250 ML IVC SCH (08:45)
[2017-10-09] MEDS ORDERED: *HR* Labetalol 20 MG/4 ML SYRINGE IVP ONE (08:50)
[2017-10-09] MEDS ORDERED: *HR* HYDROcodone/Acet 5/325 mg TABLET PO PRN (08:51)
[2017-10-09] MEDS ORDERED: Acetaminophen 325 MG TABLET PO PRN (08:51)
[2017-10-09] MEDS ORDERED: *HR* OxyCODONE Immed Rel 5 MG TABLET PO PRN (08:51)
[2017-10-09] MEDS ORDERED: Naloxone 0.4 MG/ML INJ IVP PRN (08:51)
[2017-10-09] MEDS ORDERED: Levalbuterol Neb 1.25 MG/3 ML IH PRN (08:56)
[2017-10-09] MEDS ORDERED: Ondansetron 4 MG/2 ML VIAL IVP PRN (08:57)
[2017-10-09] MEDS ORDERED: *HR* Dextrose 50 % in Water (Syg) 50 ML SYRINGE IVP PRN (08:58)
[2017-10-09] MEDS ORDERED: Dextrose Gel 15 GM/37.5 ML TUBE PO PRN ×2 (08:58)
[2017-10-09] MEDS ORDERED: D5% in Water 1,000 ML IVC PRN (08:58)
[2017-10-09] MEDS ORDERED: Levalbuterol Neb 1.25 MG/3 ML IH SCH (10:00)
--- NOTE | 2017-10-09 10:00 | Internal Med History&Physical ---
Date of Encounter: 10/09/17 Time of Encounter: 08:00 Internal Medicine - H&P: HPI Chief complaint: Shortness of breath, back pain Admitted From: Home Plans for Post Hospital Care: Home History of present illness: Ms. Ren is a 57 year old female present to ER for shortness of breath. Past medical history is significant for COPD, diabetes, hypertension, AAA, right iliac artery aneurysm, aortic arch ulcer. Patient said she has shortness of breath for about 1 week. Denies fever or cough. Gradually getting worse. Has some wheezing. Patient also has back pain for several days, which is getting worse gradually. Patient denies chest pain but have some epigastric pain. Patient has mild nausea, no vomiting. Patient uses home oxygen but her concentrator is broken. In the emergency room , patient was treated as COPD exacerbation with steroids and bronchodilator. Patient was also found high blood pressure with BP 180-190s. She was given 1 dose of labetalol IV. Patient was admitted for further management. 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 Psychiatric history: anxiety, depression - Past Surgical History Surgical History: appendectomy, cholecystectomy, knee replacement, ureteral stent Additional surgical history: renal artery stent - Social History Smoking Status: Former smoker Smokeless Tobacco Status: No Alcohol use: none Drug use: none - Family History Father Family Member Ethnicity: Non- Living Status: Hx Family Cardiac Disorders: Yes Hx Family Respiratory Disorders: No Hx Family Cancer: No Hx Family GI Disorders: No Hx Family Endocrine Disorder: No Hx Family Neuromuscular Disorders: No Hx Family Neurologic Disorders: No Hx Family HEENT Disorders: No Hx Family Autoimmune Disorders: No Mother Adopted: No Family Member Ethnicity: Non- Living Status: Still Living Hx Family Cardiac Disorders: No Hx Family Respiratory Disorders: No Hx Family Cancer: No Hx Family GI Disorders: No Hx Family Endocrine Disorder: Yes (DM) Hx Family Neuromuscular Disorders: No Hx Family Neurologic Disorders: No Hx Family HEENT Disorders: No Hx Family Autoimmune Disorders: Yes (Arthritis) Internal Medicine - H&P: Meds Oxygen 3 l IH AD 07/19/16 [History] raNITIdine HCl [Zantac] 150 mg PO DAILY 11/20/16 [History] Aspirin [Lo-Dose Aspirin EC] 81 mg PO DAILY 01/12/17 [History] Nitroglycerin [Nitrostat] 0.4 mg PO Q5M 06/03/17 [History] Albuterol Sulfate [Ventolin Hfa] 2 puff IH Q4H PRN #1 inh 07/07/17 [Rx] Furosemide [Lasix] 40 mg PO DAILY PRN #30 tablet 07/07/17 [Rx] Ipratropium/Albuterol Neb [Duoneb] 3 ml IH Q4HR #1 pack 07/07/17 [Rx] amLODIPine [Norvasc] 5 mg PO HS #30 tab 07/07/17 [Rx] cloNIDine HCl [Clonidine HCl] 0.3 mg PO QID #90 tablet 07/07/17 [Rx] Budesonide/Formoterol 160/4.5 [Symbicort 160/4.5] 2 puff IH BIDR 08/06/17 [ History] Sucralfate [Carafate] 1 gm PO QIDAC #120 tablet 08/08/17 [Rx] Insulin NPH Hum/Reg Insulin Hm [Novolin 70-30 100 Unit/ml Vial] 0 unit SQ TID PRN 08/18/17 [History] Doxycycline 100 mg PO BID #8 capsule 08/20/17 [Rx] Metoprolol XL (24 HR) Succ [Toprol Xl] 50 mg PO DAILY #30 tab.er.24h 08/20/17 [ Rx] predniSONE [PredniSONE] 40 mg PO DAILY #6 tablet 08/20/17 [Rx] levoFLOXacin [Levaquin] 750 mg PO DAILY #5 tablet 09/01/17 [Rx] predniSONE [PredniSONE] 60 mg PO DAILY #15 tablet 09/01/17 [Rx] predniSONE [PredniSONE] 40 mg PO DAILY #6 tablet 10/04/17 [Rx] Oxycodone HCl 5 mg PO TID PRN 3 Days #9 tablet 10/07/17 [Rx] predniSONE [PredniSONE] 10 mg PO DAILY #4 tablet 10/07/17 [Rx] 3 Allergy/AdvReac Type Severity Reaction Status Date / Time NSAIDS (Non-Steroidal Allergy Unknown See Verified 08/06/17 04:34 Anti-Inflamma Comments Penicillins Allergy Unknown Hives Verified 08/06/17 04:34 lisinopril AdvReac Cough Verified 08/06/17 04:34 lorazepam [From Ativan] AdvReac Confusion Verified 08/06/17 04:34 tramadol AdvReac Nausea Verified 08/06/17 04:34 All Systems PM: A 10-system review of systems was performed and is negative for pertinent findings except as documented above in the HPI. - Constitutional Vitals: Temp Pulse Resp BP Pulse Ox 98.0 F 121 24 222/122 96 10/09/17 07:29 10/09/17 07:29 10/09/17 07:30 10/09/17 08:01 10/09/17 07:30 General appearance: Present: mild distress, A&O X 3, answers questions appropriately - Head Head exam: Present: atraumatic, normocephalic - Eye Eye exam: Present: PERRL, conjuntiva pink, sclera anicteric Pupils: Present: PERRL - Neck Neck exam general surgery: Present: supple, trachea midline. Absent: lymphadenopathy - Respiratory Respiratory exam: Present: CTAB. Absent: accessory muscle use, rales, rhonchi, wheezes - Cardiovascular Cardiovascular exam: Present: RRR, +S1, +S2, tachycardia. Absent: diastolic murmur, gallop, rubs, systolic murmur - GI/Abdominal GI/Abdominal exam: Present: normal bowel sounds, soft, tenderness (Mild tenderness on epigastric area, no rebound or guarding), no peritoneal signs. Absent: distended - Extremities Exam Extremities exam: Present: warm, radial pulses palpable and symmetrical. Absent : calf tenderness, cyanotic, pedal edema - Neurological Exam Neurological exam: Present: CN II-XII intact, oriented X3, no focal deficits. Absent: pronater drift, facial droop, speech deficit - Skin Skin exam: Present: dry, intact Internal Med - H&P Results - Labs CBC & Chem 7: 10/09/17 00:45 10/09/17 00:24 - Assessment and plan (1) Atherosclerotic ulcer of aorta Current Visit: Yes Status: Acute Assessment and plan: Patient complaint worsening back pain. Recently found aortic arch ulcer in [facility]. No imaging study in our hospital. Patient has uncontrolled hypertension. - Give patient pain control - Started labetalol drip to control hypertension and tachycardia. - Discussed with cardiothoracic surgeon on phone, recommend transfer patient to [facility]. - Closely monitor patient before transfer. (2) Acute exacerbation of chronic obstructive pulmonary disease (COPD) Current Visit: Yes Status: Acute Assessment and plan: Patient has no wheezing when I examined her. Continue oxygen supportive treatment. Continue steroid and bronchodilator. (3) Abdominal aortic aneurysm Current Visit: No Status: Acute Assessment and plan: Recent abdominal CT shows AAA diameter < 4 cm. continue closely monitoring Qualifiers: Presence of rupture: without rupture Qualified Code(s): I71.4 - Abdominal aortic aneurysm, without rupture (4) DVT prophylaxis Current Visit: No Status: Acute Assessment and plan: Heparin subcutaneously (5) DM (diabetes mellitus), type 2 Current Visit: No Status: Chronic Assessment and plan: Continue sliding scale coverage. Closely monitor glucose level Qualifiers: Diabetes mellitus patent legal assistant insulin use: with patent legal assistant use Diabetes mellitus complication status: with hyperglycemia Qualified Code(s): E11.65 - Type 2 diabetes mellitus with hyperglycemia; Z79.4 - paraffiner (current) 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; Z79.4 - FDC (current) 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; Z79.4 - FDC (current ) 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; Z79.4 - paraffiner (current) 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 (6) Hypertensive emergency Current Visit: Yes Status: Acute Assessment and plan: Patient has AAA and aortic arch ulcer. Will aggressively treat hypertensive emergency with labetalol drip. - Time Spent With Patient Total time spent is greater than 50% in coordination of care (as documented) at patient's floor/unit and/or counseling patient: 40 minutes Greater than 35 minutes
[2017-10-09] MEDS ORDERED: Famotidine 20 MG TABLET PO SCH (10:02)
[2017-10-09] MEDS ORDERED: Insulin LISPRO 300 UNITS/3 ML VIAL SQ SCH ×2 (11:30→21:00)
[2017-10-09] MEDS ORDERED: Sucralfate 1 GM TABLET PO SCH (11:30)
[2017-10-09] MEDS: Labetalol 200 MG in D5% in Water 250 ML IVC SCH ×2 (11:59→12:03)
--- NOTE | 2017-10-09 11:59 | Discharge Summary ---
Date of Encounter: 10/09/17 Time of Encounter: 11:30 - Discharge Diagnosis (1) Atherosclerotic ulcer of aorta Priority: Primary Status: Acute (2) Acute exacerbation of chronic obstructive pulmonary disease (COPD) Priority: Primary Status: Acute (3) Abdominal aortic aneurysm Priority: Secondary Status: Acute Qualifiers: Presence of rupture: without rupture Qualified Code(s): I71.4 - Abdominal aortic aneurysm, without rupture (4) DVT prophylaxis Priority: Secondary Status: Acute (5) DM (diabetes mellitus), type 2 Priority: Secondary Status: Chronic Qualifiers: Diabetes mellitus watermelon inspector insulin use: with mcfp use Diabetes mellitus complication status: with hyperglycemia Qualified Code(s): E11.65 - Type 2 diabetes mellitus with hyperglycemia; Z79.4 - adjunct faculty for medical terminology (current) 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; Z79.4 - adjunct faculty for medical terminology (current) 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; Z79.4 - adjunct faculty for medical terminology (current ) 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; Z79.4 - retirement (current) 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 (6) Hypertensive emergency Priority: Primary Status: Acute Hospital course: Ms. Ren is a 57 year old female was admitted for COPD exacerbation. Patient has a history of aortic arch ulcer scheduled to have surgery in [facility]. Patient was treated with Solu-Medrol and DuoNeb in the emergency room. Patient has high blood pressure up to 222/122. Patient complaint of neck pain, which gradually increased in last several days. Concern for aortic emergency. Labetalol drip started. Discussed with cardiothoracic surgery consult on phone , patient will be benefited to transfer to [facility]. Patient agreed to be transferred. Called [facility], talked with cardiothoracic surgeon , recommend to transfer to emergency room for further test. I have spoke with [place] ER physician, patient was accepted and will transfer to their ER through EMS. I saw and examined the patient. Patient still complaint back pain. In mild distress. BP is slightly getting down but is still high. Will continue labetalol drip. Continue pain medication as needed. Closely monitor patient during transportation. - Time Spent with Patient Total time spent providing and/or coordinating discharge services: 40 minutes Greater than 30 minutes - Discharge Medications Home Medications: Oxygen 3 l IH AD 07/19/16 [History] raNITIdine HCl [Zantac] 150 mg PO DAILY 11/20/16 [History] Aspirin [Lo-Dose Aspirin EC] 81 mg PO DAILY 01/12/17 [History] Nitroglycerin [Nitrostat] 0.4 mg PO Q5M 06/03/17 [History] Albuterol Sulfate [Ventolin Hfa] 2 puff IH Q4H PRN #1 inh 07/07/17 [Rx] Furosemide [Lasix] 40 mg PO DAILY PRN #30 tablet 07/07/17 [Rx] amLODIPine [Norvasc] 5 mg PO HS #30 tab 07/07/17 [Rx] cloNIDine HCl [Clonidine HCl] 0.3 mg PO QID #90 tablet 07/07/17 [Rx] Budesonide/Formoterol 160/4.5 [Symbicort 160/4.5] 2 puff IH BIDR 08/06/17 [ History] Sucralfate [Carafate] 1 gm PO QIDAC #120 tablet 08/08/17 [Rx] Insulin NPH Hum/Reg Insulin Hm [Novolin 70-30 100 Unit/ml Vial] 0 unit SQ TID PRN 08/18/17 [History] Metoprolol XL (24 HR) Succ [Toprol Xl] 50 mg PO DAILY #30 tab.er.24h 08/20/17 [ Rx] predniSONE [PredniSONE] 40 mg PO DAILY #6 tablet 08/20/17 [Rx] predniSONE [PredniSONE] 60 mg PO DAILY #15 tablet 09/01/17 [Rx] predniSONE [PredniSONE] 40 mg PO DAILY #6 tablet 10/04/17 [Rx] Oxycodone HCl 5 mg PO TID PRN 3 Days #9 tablet 10/07/17 [Rx] predniSONE [PredniSONE] 10 mg PO DAILY #4 tablet 10/07/17 [Rx] Aspirin Enteric Coated [Aspirin EC] 81 mg PO DAILY tablet. 10/09/17 [Rx] Heparin 5,000 unit SQ Q12HR vial 10/09/17 [Rx] Insulin LISPRO [HumaLOG] 0 units SQ HS vial 10/09/17 [Rx] Insulin LISPRO [HumaLOG] 0 units SQ TIDAC vial 10/09/17 [Rx] Levalbuterol Neb [Xopenex Neb] 1.25 mg IH Q4H PRN vial.neb 10/09/17 [Rx] Levalbuterol Neb [Xopenex Neb] 1.25 mg IH [id number] vial.neb 10/09/17 [Rx] Ondansetron [Zofran] 4 mg IVP Q6HR PRN vial 10/09/17 [Rx] predniSONE [PredniSONE] 40 mg PO DAILY tablet 10/09/17 [Rx] Allergies/Adverse Reactions: 3 Allergy/AdvReac Type Severity Reaction Status Date / Time NSAIDS (Non-Steroidal Allergy Unknown See Verified 08/06/17 04:34 Anti-Inflamma Comments Penicillins Allergy Unknown Hives Verified 08/06/17 04:34 lisinopril AdvReac Cough Verified 08/06/17 04:34 lorazepam [From Ativan] AdvReac Confusion Verified 08/06/17 04:34 tramadol AdvReac Nausea Verified 08/06/17 04:34 Date of admission: 10/09/17 08:51 Primary care physician: Domitila Lau MD Consults: 10/09/17 09:04 Consult to Cardiology [CONS] Stat Comment: Consulting Provider: Cardiology Gloria Reason for Consult: Aortic arch ulcer, HTN emergency Call Completed: Yes 10/09/17 09:05 Consult to Cardiothoracic Surgery [CONS] Stat Consulting Provider: Cardiothoracic Surgery Lyons Reason for Consult: Aortic arch ulcer Call Completed: Yes 10/09/17 10:00 Consult to Offset Printing Pressmen [CONS] Routine Reason for SW Consult: O2 concentration broke Discharging clinician: Angela Rousseau Anticipated date of discharge: 10/09/17 - Constitutional Vitals: Temp Pulse Resp BP Pulse Ox 98.0 F 90 24 201/99 97 10/09/17 07:29 10/09/17 10:40 10/09/17 07:30 10/09/17 10:40 10/09/17 10:40 General appearance: Present: mild distress, A&O X 3, answers questions appropriately - Head Head exam: Present: atraumatic, normocephalic - Eye Eye exam: Present: PERRL, conjuntiva pink, sclera anicteric Pupils: Present: PERRL - Neck Neck exam general surgery: Present: supple, trachea midline. Absent: lymphadenopathy - Respiratory Respiratory exam: Present: decreased breath sounds (Bilateral), CTAB. Absent: accessory muscle use, rales, rhonchi, wheezes - Cardiovascular Cardiovascular exam: Present: RRR, +S1, +S2. Absent: diastolic murmur, gallop, rubs, systolic murmur - GI/Abdominal GI/Abdominal exam: Present: normal bowel sounds, soft, no peritoneal signs. Absent: distended, tenderness - Extremities Exam Extremities exam: Present: warm, radial pulses palpable and symmetrical. Absent : calf tenderness, cyanotic, pedal edema - Neurological Exam Neurological exam: Present: CN II-XII intact, oriented X3, no focal deficits. Absent: pronater drift, facial droop, speech deficit - Skin Skin exam: Present: dry, intact - Patient Status Disposition: Transfer Critical Access Hosp Condition: Fair Functional capacity at discharge: independent ambulation Overall status at discharge: patient is not back to baseline - Discharge Instructions Follow Up With: Domitila Lau MD [Primary Care Provider] - - Diet and Activity Activity: wear oxygen at all times, other (Bed rest) Diet: diabetic diet
--- NOTE | 2017-10-09 12:25 | Event Note ---
Date of Encounter: 10/09/17 Time of Encounter: 12:20 - Cardiology Event Note I was prepping to see patient for consult, however discharge summary noted and per nursing staff patient being transferred to outside facility.
[2017-10-09 12:36] VITALS: BP 172/116
[2017-10-09] MEDS ORDERED: *HR* Heparin 5,000 UNIT/ML VIAL SQ SCH (18:00)
[2017-10-09] MEDS ORDERED: Budesonide/Formoterol 160/4.5 MDI IH SCH (22:00)
[2017-10-10] MEDS ORDERED: Aspirin Enteric Coated 81 MG Tablet PO SCH (09:00)
[2017-10-10] MEDS ORDERED: predniSONE 20 MG TABLET PO SCH (09:00)
--- NOTE | 2017-10-10 15:24 | Electrocardiograph Report ---
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
== END 2017-10-09 13:05 | disposition critical access hospital (66) | DRG 140 ==
LOC: 3BNU 00:05 → EMEROOARM 00:05 → 3BNU 06:08 → 2NNU 10:33
PROVIDERS: ADMIT Internal Medicine; ATTEND Internal Medicine

== ENCOUNTER 2018-02-15 21:00 | Inpatient (IN) ==
[2018-02-15] MEDS ORDERED: Ipratropium/Albuterol Neb 3 ML IH ONE (21:16)
[2018-02-15] MEDS ORDERED: methylPREDNISolone 125 MG/2 ML VIAL IVP ONE (21:16)
--- NOTE | 2018-02-15 21:17 | Emergency Department Note ---
Disposition Clinical Impression: Hyperglycemia COPD (chronic obstructive pulmonary disease) Qualifiers: COPD type: COPD with acute exacerbation Qualified Code(s): J44.1 - Chronic obstructive pulmonary disease with (acute) exacerbation Disposition: Admitted As Inpatient Condition: Fair Referrals: NONE,PCP [Primary Care Provider] - Forms: ED Satisfaction Letter Time of Disposition: 22:18 General Adult HPI - General Chief complaint: ED Shortness of Breath/Dyspnea Stated complaint: max hx of copd Time Seen by Provider: 02/15/18 21:12 - History of Present Illness Pain Scale: 7 - Related Data Home Medications Medication Instructions Recorded Confirmed Oxygen 3 l IH AD 07/19/16 01/21/18 raNITIdine HCl [Zantac] 150 mg PO DAILY 11/20/16 01/21/18 Nitroglycerin [Nitrostat] 0.4 mg PO Q5M 06/03/17 01/21/18 Budesonide/Formoterol 160/4.5 2 puff IH BIDR 08/06/17 01/21/18 [Symbicort 160/4.5] Insulin NPH Hum/Reg Insulin Hm 0 unit SQ TID PRN 08/18/17 01/21/18 [Novolin 70-30 100 Unit/ml Vial] Atorvastatin [Lipitor] 40 mg PO DAILY 01/21/18 01/21/18 Buspirone HCl [Buspar] 10 mg PO DAILY 01/21/18 01/21/18 Insulin NPH Human Isophane 20 unit SQ BID 01/21/18 01/21/18 [Novolin N] Ipratropium/Albuterol Neb [Duoneb] 3 ml IH Q3-6H 01/21/18 01/21/18 Losartan Potassium 25 mg PO DAILY 01/21/18 01/21/18 Metoprolol [Lopressor] 25 mg PO BID 01/21/18 01/21/18 Previous Rx's Medication Instructions Recorded Albuterol Sulfate [Ventolin Hfa] 2 puff IH Q4H PRN #1 inh 07/07/17 Furosemide [Lasix] 40 mg PO DAILY PRN #30 tablet 07/07/17 cloNIDine HCl [Clonidine HCl] 0.3 mg PO QID #90 tablet 07/07/17 Sucralfate [Carafate] 1 gm PO QIDAC #120 tablet 08/08/17 Aspirin Enteric Coated [Aspirin EC] 81 mg PO DAILY tablet. 10/09/17 predniSONE [Prednisone] 10 mg PO DAILY #22 tab.ds.pk 01/26/18 Allergies Allergy/AdvReac Type Severity Reaction Status Date / Time NSAIDS (Non-Steroidal Allergy Unknown See Verified 08/06/17 04:34 Anti-Inflamma Comments Penicillins Allergy Unknown Hives Verified 08/06/17 04:34 lisinopril AdvReac Cough Verified 08/06/17 04:34 lorazepam [From Ativan] AdvReac Confusion Verified 08/06/17 04:34 tramadol AdvReac Nausea Verified 08/06/17 04:34 Past Medical History - Past Medical History Medical history: Reports: arthritis, asthma, COPD, diabetes, GERD, hyperlipidemia, hypertension, renal disease, other Surgical history: Reports: appendectomy, cholecystectomy, knee replacement, ureteral stent Psychiatric history: Reports: anxiety, depression 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 , bilateral 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, other - Social History Smoking Status: Former smoker Smokeless Tobacco Status: No Alcohol use: Reports: none Drug use: Reports: none Course Vital Signs Temperature 98.4 F 02/15/18 21:08 Pulse Rate 112 02/15/18 21:08 Respiratory Rate 24 02/15/18 21:08 Blood Pressure 161/87 02/15/18 21:08 O2 Sat by Pulse Oximetry 97 02/15/18 21:08 Temperature 98.4 F 02/15/18 21:54 Pulse Rate 112 02/15/18 21:54 Respiratory Rate 24 02/15/18 21:54 Blood Pressure 161/87 02/15/18 21:54 O2 Sat by Pulse Oximetry 100 02/15/18 21:54 Oxygen Delivery Oxygen Delivery Room Air Medical Decision Making - Lab Data Result diagrams: 02/15/18 21:28 02/15/18 21:28 Lab Results 02/15/18 02/15/18 02/15/18 Range/Units 21:28 21:28 21:28 WBC 5.1 (4.3-11.1) K/mcL RBC 3.95 (3.82-4.97) M/mcL Hgb 11.4 L (11.5-15.4) g/dL Hct 36.3 (35.3-44.9) % MCV 91.9 (83.0-100.0) fL MCH 28.9 (28.0-33.3) pg MCHC 31.4 L (31.6-35.5) g/dL RDW 15.7 H (11.5-14.5) % Plt Count 361 (140-400) K/mcL MPV 10.4 (9.4-12.4) fL Immature Gran % 1.2 (0-4) % Seg Neutrophils % 55.1 % Lymphocytes % 29.0 % Monocytes % 8.2 % Eosinophils % 5.5 % Basophils % 1.0 % Neutrophils # 2.8 (1.6-8.9) K/mcL Lymphocytes # 1.5 (0.6-4.6) K/mcL Monocytes # 0.4 (0.0-1.3) K/mcL Eosinophils # 0.3 (0.0-0.6) K/mcL Basophils # 0.1 (0.0-0.2) K/mcL Nucleated RBCs/100 WBC 0.4 H (0) /100 WBC PT 12.2 H (9.4-12.1) Seconds INR 1.1 APTT 36.1 H (26.0-36.0) Seconds Sodium 142 (136-145) mEq/L Potassium 4.2 (3.5-5.1) mEq/L Chloride 104 (98-107) mEq/L Carbon Dioxide 29 (23-29) mEq/L BUN 11 (8-23) mg/dL Creatinine 0.62 (0.60-1.20) mg/dL Est GFR ( Amer) > 60 (> 60) Est GFR (Non-Af Amer) > 60 (> 60) BUN/Creatinine Ratio 18 (6-26) Glucose 316 H (70-105) mg/dL Calculated Osmolality 305 H (280-300) Calcium 9.2 (8.6-10.3) mg/dL Total Bilirubin 0.2 L (0.3-1.0) mg/dL Direct Bilirubin 0.0 (0.0-0.2) mg/dL Indirect Bilirubin 0.2 (0.0-1.2) mg/dL AST 8 L (13-39) Units/L ALT 10 (7-52) Units/L Alkaline Phosphatase 125 H (34-104) Units/L Troponin I < 0.03 (< 0.04) ng/mL Serum Total Protein 6.4 (6.4-8.9) g/dL Albumin 3.8 (3.5-5.7) g/dL Globulin 2.6 (2.4-3.5) g/dL Albumin/Globulin Ratio 1.5 (1.1-2.2) Attestation Statement - Attestation Attestation: The history, physical exam, and medical decision making was performed by the medical student either while I was physically present and actively involved or I personally re-performed the exam and medical decision making. I have verified the accuracy of the medical student's documentation with regards to the history, physical exam findings, and medical decision making. [id number] time provided I was present with any medical student immediately upon the patient's arrival to the treatment area. She has a known history of chronic oxygen dependency and COPD. She complains of productive cough with some hemoptysis. She has a history of frequent hospitalizations for similar presentations. I anticipate her requiring admission. She is tachypneic with pursed lip breathing on arrival. The patient tells me that it is not uncommon for her to have right- sided chest pain similar to this. She states "it is always in my right lung." She is tachycardic but my suspicion that the patient is experiencing hemoptysis and symptoms due to a PE are low
[2018-02-15] MEDS ORDERED: Ipratropium/Albuterol Neb 3 ML ONE (21:18)
[2018-02-15] MEDS ORDERED: *HR* HYDROcodone/Acet 10/325 mg TABLET PO ONE (21:25)
--- NOTE | 2018-02-15 21:34 | Emergency Department Note ---
Disposition Clinical Impression: Hyperglycemia COPD (chronic obstructive pulmonary disease) Qualifiers: COPD type: COPD with acute exacerbation Qualified Code(s): J44.1 - Chronic obstructive pulmonary disease with (acute) exacerbation Disposition: Admitted As Inpatient Condition: Fair General Adult HPI - General Chief complaint: ED Shortness of Breath/Dyspnea Stated complaint: max hx of copd Time Seen by Provider: 02/15/18 21:12 - History of Present Illness HPI Narrative: 58 yof with hx of COPD requiring frequent admissions presents to the ED with a 3 -4 day history of increased shortness of breath with productive cough. She states that she wears home O2 at all times and normally requires 3L. For the past 3-4 days she has been needing 4L of O2. She has also been coughing more frequently and is bringing up greenish sputum. Today she had 2 episodes of hemoptysis, the last of which was 3 hours ago. She is also complaining of right sided pleuretic chest pain that she states occurs "every time I get sick" and radiates to her back. She was last admitted 3 weeks ago for COPD exacerbation 2/2 bronchitis. She was sent home with 5 days of prednisone and says that she felt better at that time. She is not steroid dependant at this time. She denies fever, chills, night sweats, weight loss, nausea, vomiting, abdominal pain, diarrhea. Onset (ago): day(s) (4) Pain Scale: 7 - Related Data Home Medications Medication Instructions Recorded Confirmed Oxygen 3 l IH AD 07/19/16 01/21/18 raNITIdine HCl [Zantac] 150 mg PO DAILY 11/20/16 01/21/18 Nitroglycerin [Nitrostat] 0.4 mg PO Q5M 06/03/17 01/21/18 Budesonide/Formoterol 160/4.5 2 puff IH BIDR 08/06/17 01/21/18 [Symbicort 160/4.5] Insulin NPH Hum/Reg Insulin Hm 0 unit SQ TID PRN 08/18/17 01/21/18 [Novolin 70-30 100 Unit/ml Vial] Atorvastatin [Lipitor] 40 mg PO DAILY 01/21/18 01/21/18 Buspirone HCl [Buspar] 10 mg PO DAILY 01/21/18 01/21/18 Insulin NPH Human Isophane 20 unit SQ BID 01/21/18 01/21/18 [Novolin N] Ipratropium/Albuterol Neb [Duoneb] 3 ml IH Q3-6H 01/21/18 01/21/18 Losartan Potassium 25 mg PO DAILY 01/21/18 01/21/18 Metoprolol [Lopressor] 25 mg PO BID 01/21/18 01/21/18 Previous Rx's Medication Instructions Recorded Albuterol Sulfate [Ventolin Hfa] 2 puff IH Q4H PRN #1 inh 07/07/17 Furosemide [Lasix] 40 mg PO DAILY PRN #30 tablet 07/07/17 cloNIDine HCl [Clonidine HCl] 0.3 mg PO QID #90 tablet 07/07/17 Sucralfate [Carafate] 1 gm PO QIDAC #120 tablet 08/08/17 Aspirin Enteric Coated [Aspirin EC] 81 mg PO DAILY tablet. 10/09/17 predniSONE [Prednisone] 10 mg PO DAILY #22 tab.ds.pk 01/26/18 Allergies Allergy/AdvReac Type Severity Reaction Status Date / Time NSAIDS (Non-Steroidal Allergy Unknown See Verified 08/06/17 04:34 Anti-Inflamma Comments Penicillins Allergy Unknown Hives Verified 08/06/17 04:34 lisinopril AdvReac Cough Verified 08/06/17 04:34 lorazepam [From Ativan] AdvReac Confusion Verified 08/06/17 04:34 tramadol AdvReac Nausea Verified 08/06/17 04:34 Constitutional: Denies: fever, chills, weakness, weight change, night sweats Eyes: Denies: eye discharge ENT ED: Denies: throat pain, congestion Cardiovascular: Reports: chest pain (right sided sharp pain, worse with inspiration ). Denies: palpitations, orthopnea, syncope, paroxysmal nocturnal dyspnea Respiratory: Reports: cough, dyspnea (chronic), wheezes, hemoptysis, sputum production Gastrointestinal: Denies: abdominal pain, nausea, vomiting, diarrhea, hematemesis, melena, hematochezia Genitourinary: Denies: urgency, dysuria, frequency Musculoskeletal: Reports: back pain Integumentary: Denies: rash Neurological: Denies: headache, weakness, numbness, confusion Psychiatric: Denies: anxiety, depression Endocrine: Reports: fatigue Past Medical History - Past Medical History Medical history: Reports: arthritis, asthma, COPD, diabetes, GERD, hyperlipidemia, hypertension, renal disease, other Surgical history: Reports: appendectomy, cholecystectomy, knee replacement, ureteral stent Psychiatric history: Reports: anxiety, depression 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 Pale) - Head Head exam: atraumatic, normocephalic, normal inspection - Eye Eye exam: Present: normal appearance - ENT ENT exam: normal exam, normal oropharynx, mucous membranes moist - Neck Neck exam: Present: normal inspection - Chest Chest inspection: Present: normal inspection, symmetric chest wall rise - Respiratory Respiratory exam: Present: accessory muscle use, other (Pursed lip breathing with decreased breath sounds. ) - Cardiovascular Cardiovascular exam: Present: regular rate, normal rhythm, normal heart sounds - Abdominal Exam Abdominal exam: Present: soft, Non-Tender, normal bowel sounds - Extremities Exam Extremities exam: Present: normal inspection. Absent: pedal edema - Neurological Exam Neurological exam: Present: alert, oriented X3 - Psychiatric Psychiatric exam: Present: normal affect, normal mood - Skin Skin exam: Present: warm, dry, pallor Course Vital Signs Temperature 98.4 F 02/15/18 21:08 Pulse Rate 112 02/15/18 21:08 Respiratory Rate 24 02/15/18 21:08 Blood Pressure 161/87 02/15/18 21:08 O2 Sat by Pulse Oximetry 97 02/15/18 21:08 Temperature 98.4 F 02/15/18 21:54 Pulse Rate 112 02/15/18 21:54 Respiratory Rate 24 02/15/18 21:54 Blood Pressure 161/87 02/15/18 21:54 O2 Sat by Pulse Oximetry 100 02/15/18 21:54 Oxygen Delivery Oxygen Delivery Room Air Medical Decision Making - [facility] Narrative Medical decision making narrative: 58 yof with chronic COPD exacerbations presents today with a 4 day history of i ncreased oxygen requirement and cough. She is afebrile and her mucous production has not changed in quantity or appearance. She likely has a COPD exacerbation secondary to bronchitis. Her hemoptysis is likely due to her chronic bronchitis. Her chest xray was reviewed and is unchanged from her last xray 3 weeks ago. She will be admitted for management and further evaluation of her COPD exacerbation. - Medical Records Medical records reviewed: Yes I reviewed the patient's medical records. - Lab Data Lab results reviewed: Yes I reviewed the patient's lab results. Result diagrams: 02/15/18 21:28 02/15/18 21:28 Lab Results 02/15/18 02/15/18 02/15/18 Range/Units 21:28 21:28 21:28 WBC 5.1 (4.3-11.1) K/mcL RBC 3.95 (3.82-4.97) M/mcL Hgb 11.4 L (11.5-15.4) g/dL Hct 36.3 (35.3-44.9) % MCV 91.9 (83.0-100.0) fL MCH 28.9 (28.0-33.3) pg MCHC 31.4 L (31.6-35.5) g/dL RDW 15.7 H (11.5-14.5) % Plt Count 361 (140-400) K/mcL MPV 10.4 (9.4-12.4) fL Immature Gran % 1.2 (0-4) % Seg Neutrophils % 55.1 % Lymphocytes % 29.0 % Monocytes % 8.2 % Eosinophils % 5.5 % Basophils % 1.0 % Neutrophils # 2.8 (1.6-8.9) K/mcL Lymphocytes # 1.5 (0.6-4.6) K/mcL Monocytes # 0.4 (0.0-1.3) K/mcL Eosinophils # 0.3 (0.0-0.6) K/mcL Basophils # 0.1 (0.0-0.2) K/mcL Nucleated RBCs/100 WBC 0.4 H (0) /100 WBC PT (9.4-12.1) Seconds INR APTT (26.0-36.0) Seconds Sodium 142 (136-145) mEq/L Potassium 4.2 (3.5-5.1) mEq/L Chloride 104 (98-107) mEq/L Carbon Dioxide 29 (23-29) mEq/L BUN 11 (8-23) mg/dL Creatinine 0.62 (0.60-1.20) mg/dL Est GFR ( Amer) > 60 (> 60) Est GFR (Non-Af Amer) > 60 (> 60) BUN/Creatinine Ratio 18 (6-26) Glucose 316 H (70-105) mg/dL Calculated Osmolality 305 H (280-300) Calcium 9.2 (8.6-10.3) mg/dL Total Bilirubin 0.2 L (0.3-1.0) mg/dL Direct Bilirubin 0.0 (0.0-0.2) mg/dL Indirect Bilirubin 0.2 (0.0-1.2) mg/dL AST 8 L (13-39) Units/L ALT 10 (7-52) Units/L Alkaline Phosphatase 125 H (34-104) Units/L Troponin I < 0.03 (< 0.04) ng/mL B-Natriuretic Peptide 81 (Less than 100) pg/mL Serum Total Protein 6.4 (6.4-8.9) g/dL Albumin 3.8 (3.5-5.7) g/dL Globulin 2.6 (2.4-3.5) g/dL Albumin/Globulin Ratio 1.5 (1.1-2.2) 02/15/18 Range/Units 21:28 WBC (4.3-11.1) K/mcL RBC (3.82-4.97) M/mcL Hgb (11.5-15.4) g/dL Hct (35.3-44.9) % MCV (83.0-100.0) fL MCH (28.0-33.3) pg MCHC (31.6-35.5) g/dL RDW (11.5-14.5) % Plt Count (140-400) K/mcL MPV (9.4-12.4) fL Immature Gran % (0-4) % Seg Neutrophils % % Lymphocytes % % Monocytes % % Eosinophils % % Basophils % % Neutrophils # (1.6-8.9) K/mcL Lymphocytes # (0.6-4.6) K/mcL Monocytes # (0.0-1.3) K/mcL Eosinophils # (0.0-0.6) K/mcL Basophils # (0.0-0.2) K/mcL Nucleated RBCs/100 WBC (0) /100 WBC PT 12.2 H (9.4-12.1) Seconds INR 1.1 APTT 36.1 H (26.0-36.0) Seconds Sodium (136-145) mEq/L Potassium (3.5-5.1) mEq/L Chloride (98-107) mEq/L Carbon Dioxide (23-29) mEq/L BUN (8-23) mg/dL Creatinine (0.60-1.20) mg/dL Est GFR ( Amer) (> 60) Est GFR (Non-Af Amer) (> 60) BUN/Creatinine Ratio (6-26) Glucose (70-105) mg/dL Calculated Osmolality (280-300) Calcium (8.6-10.3) mg/dL Total Bilirubin (0.3-1.0) mg/dL Direct Bilirubin (0.0-0.2) mg/dL Indirect Bilirubin (0.0-1.2) mg/dL AST (13-39) Units/L ALT (7-52) Units/L Alkaline Phosphatase (34-104) Units/L Troponin I (< 0.04) ng/mL B-Natriuretic Peptide (Less than 100) pg/mL Serum Total Protein (6.4-8.9) g/dL Albumin (3.5-5.7) g/dL Globulin (2.4-3.5) g/dL Albumin/Globulin Ratio (1.1-2.2) - Radiology Data Radiology results reviewed: Yes I reviewed the patient's radiology results. - EKG Data EKG #1 EKG results narrative: Sinus tachycardia with ventricular rate of 119 bpm, NE interval of 160 ms, QRS duration 88 ms, QTc 392 ms
[2018-02-15 21:57] LABS: Basophils # 0.1 K/mcL (0.0-0.2); Eosinophils # 0.3 K/mcL (0.0-0.6); Eosinophils % 5.5 %; Hematocrit 36.3 % (35.3-44.9); Hemoglobin 11.4 g/dL (11.5-15.4); Immature Granulocytes % 1.2 % (0-4); Lymphocytes # 1.5 K/mcL (0.6-4.6); Mean Corpuscular HGB Conc 31.4 g/dL (31.6-35.5); Mean Corpuscular Hemoglobin 28.9 pg (28.0-33.3); Mean Corpuscular Volume 91.9 fL (83.0-100.0); Mean Platelet Volume 10.4 fL (9.4-12.4); Monocytes # 0.4 K/mcL (0.0-1.3); Monocytes % 8.2 %; Neutrophils # 2.8 K/mcL (1.6-8.9); Nucleated Red Blood Cells 0.4 /100 WBC (0); Platelet Count 361 K/mcL (140-400); Red Blood Count 3.95 M/mcL (3.82-4.97); Red Cell Distribution Width 15.7 % (11.5-14.5); Segmented Neutrophils % 55.1 %
[2018-02-15 22:05] LABS: INR 1.1; Prothrombin Time 12.2 Seconds (9.4-12.1)
[2018-02-15 22:08] LABS: Activated Partial Thrombo Time 36.1 Seconds (26.0-36.0)
[2018-02-15 22:14] LABS: Alanine Aminotransferase 10 Units/L (7-52); Albumin 3.8 g/dL (3.5-5.7); Albumin/Globulin Ratio 1.5 (1.1-2.2); Alkaline Phosphatase 125 Units/L (34-104); Aspartate Amino Transferase 8 Units/L (13-39); BUN/Creatinine Ratio 18 (6-26); Bilirubin,Indirect 0.2 mg/dL (0.0-1.2); Bilirubin,Total 0.2 mg/dL (0.3-1.0); Blood Urea Nitrogen 11 mg/dL (8-23); Calcium 9.2 mg/dL (8.6-10.3); Carbon Dioxide 29 mEq/L (23-29); Chloride 104 mEq/L (98-107); Globulin 2.6 g/dL (2.4-3.5); Glucose 316 mg/dL (70-105); Osmolality,Calculated 305 (280-300); Potassium 4.2 mEq/L (3.5-5.1); Sodium 142 mEq/L (136-145); Total Protein 6.4 g/dL (6.4-8.9); Troponin I < 0.03 ng/mL (< 0.04); eGFR For Non-African Americans > 60 (> 60)
--- NOTE | 2018-02-15 22:24 | Internal Med History&Physical ---
Date of Encounter: 02/15/18 Time of Encounter: 23:02 Internal Medicine - H&P: HPI Chief complaint: Shortness of breath History of present illness: Ms. Ren is a 58 year old female with past medical history of of COPD on home oxygen where she required normally 3 L and who has history of frequent admissions due to COPD except with exacerbation who presents to the ED with a 3- 4 day history of progressive worsening of shortness of breath associated with productive cough and 2 episodes of hemoptysis. She also reported chest pain with pleuritic component. 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 Psychiatric history: anxiety, depression - Past Surgical History Surgical History: appendectomy, cholecystectomy, knee replacement, ureteral stent Additional surgical history: renal artery stent - Social History Smoking Status: Former smoker Smokeless Tobacco Status: No Alcohol use: none Drug use: none - Family History Father Family Member Ethnicity: Non- Living Status: Hx Family Cardiac Disorders: Yes Hx Family Respiratory Disorders: No Hx Family Cancer: No Hx Family GI Disorders: No Hx Family Endocrine Disorder: No Hx Family Neuromuscular Disorders: No Hx Family Neurologic Disorders: No Hx Family HEENT Disorders: No Hx Family Autoimmune Disorders: No Mother Adopted: No Family Member Ethnicity: Non- Living Status: Still Living Hx Family Cardiac Disorders: No Hx Family Respiratory Disorders: No Hx Family Cancer: No Hx Family GI Disorders: No Hx Family Endocrine Disorder: Yes (DM) Hx Family Neuromuscular Disorders: No Hx Family Neurologic Disorders: No Hx Family HEENT Disorders: No Hx Family Autoimmune Disorders: Yes (Arthritis) Internal Medicine - H&P: Meds Oxygen 3 l IH AD 07/19/16 [History] raNITIdine HCl [Zantac] 150 mg PO DAILY 11/20/16 [History] Nitroglycerin [Nitrostat] 0.4 mg PO Q5M PRN 06/03/17 [History] Albuterol Sulfate [Ventolin Hfa] 2 puff IH Q4H PRN #1 inh 07/07/17 [Rx] Furosemide [Lasix] 40 mg PO DAILY PRN #30 tablet 07/07/17 [Rx] cloNIDine HCl [Clonidine HCl] 0.3 mg PO QID #90 tablet 07/07/17 [Rx] Budesonide/Formoterol 160/4.5 [Symbicort 160/4.5] 2 puff IH BID 08/06/17 [History] Insulin NPH Hum/Reg Insulin Hm [Novolin 70-30 100 Unit/ml Vial] 0 unit SQ TID PRN 08/18/17 [History] Aspirin Enteric Coated [Aspirin EC] 81 mg PO DAILY tablet. 10/09/17 [Rx] Atorvastatin [Lipitor] 40 mg PO DAILY 01/21/18 [History] Buspirone HCl [Buspar] 10 mg PO TID 01/21/18 [History] Insulin NPH Human Isophane [Novolin N] 20 unit SQ BID 01/21/18 [History] Ipratropium/Albuterol Neb [Duoneb] 3 ml IH Q4H 01/21/18 [History] Metoprolol [Lopressor] 25 mg PO BID 01/21/18 [History] amLODIPine [Norvasc] 10 mg PO DAILY 02/15/18 [History] Allergy/AdvReac Type Severity Reaction Status Date / Time NSAIDS (Non-Steroidal Allergy Unknown See Verified 08/06/17 04:34 Anti-Inflamma Comments Penicillins Allergy Unknown Hives Verified 08/06/17 04:34 lisinopril AdvReac Cough Verified 08/06/17 04:34 lorazepam [From Ativan] AdvReac Confusion Verified 08/06/17 04:34 tramadol AdvReac Nausea Verified 08/06/17 04:34 All Systems PM: A 10-system review of systems was performed and is negative for pertinent findings except as documented above in the HPI. - Constitutional Constitutional: no chills, no fever(s), no night sweats - Cardiovascular Cardiovascular ROS IM: dyspnea, no chest pain, no diaphoresis, no light headedness, no palpitations, no syncope - Respiratory Respiratory: cough, dyspnea, hemoptysis, wheezing, no excessive phlegm production - Gastrointestinal Gastrointestinal: no abdominal pain, no diarrhea, no hematemesis, no hematochezia, no melena, no nausea, no vomiting - Neurological Neurological ROS: no confusion, no convulsions, no focal weakness, no numbness, no tingling, no tremor(s) - Constitutional Vitals: Temp Pulse Resp BP Pulse Ox 98.4 F 112 24 161/87 100 02/15/18 21:54 02/15/18 21:54 02/15/18 21:54 02/15/18 21:54 02/15/18 21:54 Internal Med - H&P Results - Labs CBC & Chem 7: 02/16/18 03:37 02/16/18 03:37 Labs: Short CBC 02/15/18 Range/Units 21:28 WBC 5.1 (4.3-11.1) K/mcL Hgb 11.4 L (11.5-15.4) g/dL Hct 36.3 (35.3-44.9) % Plt Count 361 (140-400) K/mcL Neutrophils # 2.8 (1.6-8.9) K/mcL BMP 02/15/18 21:28 Sodium 142 Potassium 4.2 Chloride 104 Carbon Dioxide 29 BUN 11 Creatinine 0.62 Glucose 316 H Calcium 9.2 Cardiac Enzymes 02/15/18 Range/Units 21:28 Troponin I < 0.03 (< 0.04) ng/mL Liver Function 02/15/18 Range/Units 21:28 Total Bilirubin 0.2 L (0.3-1.0) mg/dL Direct Bilirubin 0.0 (0.0-0.2) mg/dL AST 8 L (13-39) Units/L ALT 10 (7-52) Units/L Alkaline Phosphatase 125 H (34-104) Units/L Albumin 3.8 (3.5-5.7) g/dL - Impressions ITS Impressions Chest X-Ray 02/15/18 21:15 IMPRESSION: There are few linear peripheral opacities within lung bases, possibly atelectasis or scarring. Correlation for mild interstitial edema is recommended. D/ / Mariam Chi Cha, MD / Mariam Chi Cha, MD Interpreting Provider: Mariam Chi Cha, MD - Assessment and plan (1) Acute exacerbation of chronic obstructive airways disease Current Visit: No Status: Acute Assessment and plan: SOB due to COPD exacerbation PLAN: - Aerosols q 4 hr and PRN SOB - Solu-medrol 40 mg IV q 6 hr - O2 to keep SpO2 higher than 92% (SpO higher than 95% if CAD) - CBCD, BMP in AM - Sputum Gram stain, C+S - Tylenol 650 mg PO q 4-6 hr PRN pain/fever - Heparin 5000 U SQ BID - Home meds - check the list and restart - Azithromycine 500 po daily (2) Diabetes mellitus Current Visit: No Status: Chronic Assessment and plan: We will start insulin sliding scale with moderate coverage Qualifiers: Diabetes mellitus type: type 2 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 Diabetes mellitus complication status: with hyperglycemia Qualified Code(s): E11.65 - Type 2 diabetes mellitus with hyperglycemia; 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; Z79.4 - [facility] (current) 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; Z79.4 - [facility] (current) 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; Z79.4 - [facility] (current) 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 (3) HLD (hyperlipidemia) Current Visit: No Status: Chronic Assessment and plan: We will obtain fasting lipid profile and continue home statin Qualifiers: Hyperlipidemia type: unspecified Qualified Code(s): E78.5 - Hyperlipidemia, unspecified (4) Hypertension Current Visit: No Status: Chronic Assessment and plan: We will continue home medication, monitor blood pressure while inpatient and adjust regimen accordingly Qualifiers: Hypertension type: essential hypertension Qualified Code(s): I10 - Essential (primary) hypertension (5) Hyperlipidemia Current Visit: No Status: Chronic Assessment and plan: We will continue home statin and obtain fasting lipid profile in a.m. Qualifiers: Hyperlipidemia type: unspecified Qualified Code(s): E78.5 - Hyperlipidemia, unspecified (6) DVT prophylaxis Current Visit: No Status: Chronic Assessment and plan: Heparin 5000 twice a day - Time Spent With Patient Total time spent is greater than 50% in coordination of care (as documented) at patient's floor/unit and/or counseling patient:
[2018-02-15] MEDS ORDERED: Naloxone 0.4 MG/ML INJ IVP PRN (23:09)
[2018-02-15] MEDS ORDERED: Azithromycin 500 MG in D5% in Water 250 ML IVPB SCH (23:45)
[2018-02-16] MEDS: *HR* OxyCODONE/APAP 10/325 TABLET PO PRN ×3 (00:38→16:28)
[2018-02-16] MEDS: Nystatin SUSP 5 ML UD.LIQ PO SCH ×5 (00:39→20:00)
[2018-02-16 04:06] LABS: Hematocrit 36.6 % (35.3-44.9); Hemoglobin 11.4 g/dL (11.5-15.4); Mean Corpuscular HGB Conc 31.1 g/dL (31.6-35.5); Mean Corpuscular Hemoglobin 28.2 pg (28.0-33.3); Mean Corpuscular Volume 90.6 fL (83.0-100.0); Mean Platelet Volume 10.3 fL (9.4-12.4); Platelet Count 360 K/mcL (140-400); Red Blood Count 4.04 M/mcL (3.82-4.97); Red Cell Distribution Width 15.3 % (11.5-14.5)
[2018-02-16 04:13] LABS: INR 1.2
[2018-02-16 04:16] LABS: Activated Partial Thrombo Time 34.7 Seconds (26.0-36.0)
[2018-02-16 04:27] LABS: Alanine Aminotransferase 10 Units/L (7-52); Albumin 3.9 g/dL (3.5-5.7); Albumin/Globulin Ratio 1.4 (1.1-2.2); Alkaline Phosphatase 128 Units/L (34-104); Aspartate Amino Transferase 8 Units/L (13-39); BUN/Creatinine Ratio 20 (6-26); Bilirubin,Total 0.2 mg/dL (0.3-1.0); Blood Urea Nitrogen 11 mg/dL (8-23); Calcium 9.2 mg/dL (8.6-10.3); Carbon Dioxide 28 mEq/L (23-29); Chloride 102 mEq/L (98-107); Chol/HDL Ratio 3.8 (0-4.9); Cholesterol 177 mg/dL (< 200); Globulin 2.7 g/dL (2.4-3.5); Glucose 358 mg/dL (70-105); HDL Cholesterol 47 mg/dL (40-59); LDL Cholesterol,Calculated 104 mg/dL (0-99); Magnesium 1.2 mg/dL (1.6-2.6); Osmolality,Calculated 302 (280-300); Phosphorous 3.2 mg/dL (2.7-4.5); Sodium 139 mEq/L (136-145); Total Protein 6.6 g/dL (6.4-8.9); Triglycerides 129 mg/dL (< 150); eGFR For Non-African Americans > 60 (> 60)
[2018-02-16] MEDS ORDERED: Ipratropium/Albuterol Neb 3 ML IH SCH ×2 (05:00→06:45)
[2018-02-16] MEDS: MethylPREDNISolone 40 MG/ML VIAL IVP SCH ×3 (05:30→17:54)
[2018-02-16] MEDS ORDERED: *HR* Dextrose 50 % in Water (Syg) 50 ML SYRINGE IVP PRN (06:39)
[2018-02-16] MEDS ORDERED: Dextrose Gel 15 GM/37.5 ML TUBE PO PRN ×2 (06:39)
[2018-02-16] MEDS ORDERED: D5% in Water 1,000 ML IVC PRN (06:39)
[2018-02-16] MEDS ORDERED: Furosemide 40 MG TABLET PO PRN (06:41)
[2018-02-16] MEDS: cloNIDine HCl 0.1 MG TABLET PO SCH ×4 (07:11→20:00)
[2018-02-16] MEDS: amLODIPine 5 MG TABLET PO SCH (07:11)
[2018-02-16] MEDS: Aspirin Enteric Coated 81 MG Tablet PO SCH (07:11)
[2018-02-16] MEDS ORDERED: Insulin LISPRO 300 UNITS/3 ML VIAL SQ SCH ×2 (07:30→21:00)
[2018-02-16] MEDS: Ipratropium/Albuterol Neb 3 ML IH SCH ×5 (07:58→23:38)
[2018-02-16] MEDS: Budesonide/Formoterol 160/4.5 1 PUFF INH IH SCH ×2 (08:01→20:26)
[2018-02-16] MEDS ORDERED: *HR* Metoprolol 5 MG/5 ML VIAL IVP PRN (08:05)
[2018-02-16] MEDS: Famotidine 20 MG TABLET PO SCH (08:34)
[2018-02-16] MEDS: Ondansetron 4 MG/2 ML VIAL IVP PRN ×2 (08:34→16:29)
[2018-02-16] MEDS: Insulin LISPRO 300 UNITS/3 ML VIAL SQ SCH ×4 (08:37→20:20)
[2018-02-16] MEDS: Insulin DETEMIR 100 UNIT/ML X5UNITS SQ SCH ×2 (09:53→20:20)
--- NOTE | 2018-02-16 10:29 | Internal Med Progress Note ---
Hospitalist Progress Note - Encounter Date of Encounter: 02/16/18 Time of Encounter: 10:25 - Subjective Interval History: Patient is resting comfortably in bed at this time. She is not in any distress and denies any respiratory distress. However, she is continuing to have productive cough and expiratory wheezing. - Exam Vitals: Temp Pulse Resp BP Pulse Ox 97.8 F 103 16 151/98 96 02/16/18 07:55 02/16/18 07:55 02/16/18 08:02 02/16/18 09:07 02/16/18 08:02 Exam: PHYSICAL EXAMINATION: GENERAL: The patient is an elderly female , NAD, and O 3 HEENT: Head is normocephalic and atraumatic. EOMI, PERRLA NECK: Supple. No carotid bruits. No lymphadenopathy or thyromegaly. LUNGS: Diminished bilaterally throughout to auscultation with fine expiratory wheezing and prolonged expiratory phase HEART: Regular rate and rhythm, S1, S2 without murmur, rubs or gallops. ABDOMEN: Soft, nontender, and nondistended. Positive bowel sounds. No hepatosplenomegaly was noted. EXTREMITIES: Without any cyanosis, clubbing, rash, lesions or edema. NEUROLOGIC: Cranial nerves II through XII are grossly intact. PSYCHIATRIC: Appropriate affect, does not appear anxious SKIN: No ulceration or induration present. - Assessment and Plan (1) Acute exacerbation of chronic obstructive airways disease Current Visit: No Status: Acute Assessment and Plan: SOB due to COPD exacerbation Lungs are diminished throughout with fine expiratory wheezing Patient dyspneic with exertion She has continued to have a cough with sputum production PLAN: - Aerosols q 4 hr MARBIN for SOB and wheezing - Solu-medrol 40 mg IV q 6 hr - CBCD, BMP in AM - Sputum Gram stain, C+S - RIP pending receipt - Heparin 5000 U SQ BID - Azithromycine 500 po daily - Supplementary O2, titrate as needed to maintain SPO2 greater than 92% (2) Diabetes mellitus Current Visit: No Status: Chronic Assessment and Plan: Serum blood glucose and FSBG elevated this morning Increased coverage to high sliding scale and add subcutaneous 10 units basal insulin twice a day (3) Hyperlipidemia Current Visit: No Status: Chronic Assessment and Plan: LDL 104, continue statin (4) Hypertension Current Visit: No Status: Chronic Assessment and Plan: Hypertensive this morning; home blood pressure medications given Remains hypertensive on BP rechecked Increase metoprolol to 50 mg twice a day as the patient is also noted to be tachycardic and can tolerate increased dose Continue to closely monitor Hypertension improves and patient remains clinically stable consider discharging with increased dose of metoprolol (5) DVT prophylaxis Current Visit: No Status: Chronic Assessment and Plan: Heparin 5000 SC BID - Time Spent with Patient Total time spent is greater than 50% in coordination of care (as documented) at patient's floor/unit and/or counseling patient: less than 15 minutes Plan of Care Discussed with: patient Internal Medicine: Result - Labs CBC & Chem 7: 02/16/18 03:37 02/16/18 03:37 Labs: Short CBC 02/15/18 02/16/18 Range/Units 21:28 03:37 WBC 5.1 4.4 (4.3-11.1) K/mcL Hgb 11.4 L 11.4 L (11.5-15.4) g/dL Hct 36.3 36.6 (35.3-44.9) % Plt Count 361 360 (140-400) K/mcL Neutrophils # 2.8 (1.6-8.9) K/mcL BMP 02/15/18 02/16/18 21:28 03:37 Sodium 142 139 Potassium 4.2 4.0 Chloride 104 102 Carbon Dioxide 29 28 BUN 11 11 Creatinine 0.62 0.54 L Glucose 316 H 358 H Calcium 9.2 9.2 Cardiac Enzymes 02/15/18 02/16/18 Range/Units 21:28 03:37 Troponin I < 0.03 < 0.03 (< 0.04) ng/mL Liver Function 02/15/18 02/16/18 Range/Units 21:28 03:37 Total Bilirubin 0.2 L 0.2 L (0.3-1.0) mg/dL Direct Bilirubin 0.0 (0.0-0.2) mg/dL AST 8 L 8 L (13-39) Units/L ALT 10 10 (7-52) Units/L Alkaline Phosphatase 125 H 128 H (34-104) Units/L Albumin 3.8 3.9 (3.5-5.7) g/dL - ABG Interpretation ABG results: PT/INR, D-dimer PT 13.0 Seconds (9.4-12.1) H 02/16/18 03:37 - Impressions Impressions Chest X-Ray 02/15/18 21:15 IMPRESSION: There are few linear peripheral opacities within lung bases, possibly atelectasis or scarring. Correlation for mild interstitial edema is recommended. D/ / Mariam Chi Cha, MD / Mariam Chi Cha, MD Interpreting Provider: Mariam Chi Cha, MD Consult Discharge Plan - Plan Referrals: Lee Ann Macias DO [Resident] - 02/24/18 10:30 am (Please arrive to appointment 30 minutes early to complete paperwork. Please bring photo I.D, insurance card, and any medications you are currently taking. If needing to cancel appointment, office request cancellations be 24 hrs before scheduled appointment. 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
[2018-02-16 16:02] LABS: Adenovirus Not Detected (Not Detect); Bordetella Pertussis Not Detected (Not Detect); Chlamydophila pneumoniae Not Detected (Not Detect); Coronavirus 229E Not Detected (Not Detect); Coronavirus HKU1 Not Detected (Not Detect); Coronavirus NL63 Not Detected (Not Detect); Coronavirus OC43 Not Detected (Not Detect); Human Metapneumovirus Not Detected (Not Detect); Human Rhinovirus/Enterovirus Not Detected (Not Detect); Influenza A Subtype 2009 H1 Not Detected (Not Detect); Influenza A Untypeable Not Detected (Not Detect); Influenza B Not Detected (Not Detect); Mycoplasma pneumoniae Not Detected (Not Detect); Parainfluenza Virus 1 Not Detected (Not Detect); Parainfluenza Virus 2 Not Detected (Not Detect); Parainfluenza Virus 3 Not Detected (Not Detect); Parainfluenza Virus 4 Not Detected (Not Detect); Respiratory Syncytial Virus Not Detected (Not Detect)
--- NOTE | 2018-02-16 17:40 | Electrocardiograph Report ---
[address] [address] Test Date: 2018-02-15 Pat Name: Nora Ren Department: 104 Room: 3B Gender: F Bill Adjuster: EKP : 1960 Requested By: Noe Polanco Order Number: [id number] Reading MD: Luba Rea Measurements Intervals Evans Rate: 119 P: 51 OR: 160 QRS: 53 QRSD: 88 T: 30 QT: 321 QTc: 392 Interpretive Statements SINUS TACHYCARDIA Electronically Signed On 02-16-2018 17:38:19 EST by Luba Rea
[2018-02-16] MEDS: *HR* Heparin 5,000 UNIT/ML VIAL SQ SCH (17:54)
[2018-02-16] MEDS: Azithromycin 250 MG TABLET PO SCH (20:01)
[2018-02-17] MEDS: MethylPREDNISolone 40 MG/ML VIAL IVP SCH ×4 (00:29→16:43)
[2018-02-17] MEDS: Ondansetron 4 MG/2 ML VIAL IVP PRN ×3 (00:31→16:43)
[2018-02-17] MEDS: *HR* OxyCODONE/APAP 10/325 TABLET PO PRN ×3 (00:33→16:42)
[2018-02-17 03:54] LABS: Basophils % 0.1 %; Hemoglobin 11.5 g/dL (11.5-15.4); Lymphocytes # 0.5 K/mcL (0.6-4.6); Lymphocytes % 6.1 %; Mean Corpuscular HGB Conc 31.1 g/dL (31.6-35.5); Mean Corpuscular Hemoglobin 28.2 pg (28.0-33.3); Mean Corpuscular Volume 90.7 fL (83.0-100.0); Monocytes # 0.2 K/mcL (0.0-1.3); Platelet Count 394 K/mcL (140-400); Red Blood Count 4.08 M/mcL (3.82-4.97); Red Cell Distribution Width 15.4 % (11.5-14.5); Segmented Neutrophils % 90.8 %
[2018-02-17 03:57] LABS: Neutrophils # 7.5 K/mcL (1.6-8.9)
[2018-02-17] MEDS: Ipratropium/Albuterol Neb 3 ML IH SCH ×6 (03:57→23:59)
[2018-02-17 04:01] LABS: BUN/Creatinine Ratio 37 (6-26); Blood Urea Nitrogen 26 mg/dL (8-23); Calcium 9.4 mg/dL (8.6-10.3); Carbon Dioxide 29 mEq/L (23-29); Chloride 98 mEq/L (98-107); Glucose 446 mg/dL (70-105); Osmolality,Calculated 304 (280-300); Potassium 4.5 mEq/L (3.5-5.1); Sodium 135 mEq/L (136-145); eGFR For Non-African Americans > 60 (> 60)
[2018-02-17] MEDS: *HR* Heparin 5,000 UNIT/ML VIAL SQ SCH ×2 (05:43→16:48)
[2018-02-17] MEDS: Aspirin Enteric Coated 81 MG Tablet PO SCH (07:43)
[2018-02-17] MEDS: Famotidine 20 MG TABLET PO SCH (07:43)
[2018-02-17] MEDS: amLODIPine 5 MG TABLET PO SCH (07:43)
[2018-02-17] MEDS: cloNIDine HCl 0.1 MG TABLET PO SCH ×4 (07:43→20:15)
[2018-02-17] MEDS: Insulin DETEMIR 100 UNIT/ML X5UNITS SQ SCH ×2 (07:43→20:24)
[2018-02-17] MEDS: Nystatin SUSP 5 ML UD.LIQ PO SCH ×4 (07:43→20:15)
[2018-02-17] MEDS: Insulin LISPRO 300 UNITS/3 ML VIAL SQ SCH ×6 (07:44→20:24)
[2018-02-17] MEDS: Budesonide/Formoterol 160/4.5 1 PUFF INH IH SCH ×2 (08:03→20:21)
--- NOTE | 2018-02-17 11:23 | Internal Med Progress Note ---
Hospitalist Progress Note - Encounter Date of Encounter: 02/17/18 Time of Encounter: 11:21 - Subjective Interval History: Patient is resting comfortably in bed at this time. Dyspnea with exertion persists today, diminished breath sounds throughout with minimal air movement. - Exam Vitals: Temp Pulse Resp BP Pulse Ox 97.8 F 87 18 144/87 94 02/17/18 07:19 02/17/18 07:19 02/17/18 07:19 02/17/18 08:19 02/17/18 10:56 Exam: PHYSICAL EXAMINATION: GENERAL: The patient is an elderly female, ill appearing, NAD, and O 3 HEENT: Head is normocephalic and atraumatic. EOMI, PERRLA NECK: Supple. No carotid bruits. No lymphadenopathy or thyromegaly. LUNGS: Diminished bilaterally throughout with fine expiratory wheezing, minimal air movement and prolonged expiratory phase HEART: Regular rate and rhythm, S1, S2 without murmur, rubs or gallops. ABDOMEN: Soft, nontender, and nondistended. Positive bowel sounds. No hepatosplenomegaly was noted. EXTREMITIES: Without any cyanosis, clubbing, rash, lesions or edema. NEUROLOGIC: Cranial nerves II through XII are grossly intact. PSYCHIATRIC: Appropriate affect, does not appear anxious SKIN: No ulceration or induration present. - Assessment and Plan (1) Acute exacerbation of chronic obstructive airways disease Current Visit: No Status: Acute Assessment and Plan: SOB due to COPD exacerbation Lungs are diminished throughout with fine expiratory wheezing Patient dyspneic with exertion She has continued to have a cough with sputum production PLAN: - Aerosols q 4 hr MARBIN for SOB and wheezing - Solu-medrol 60 mg IV q 6 hr - CBCD, BMP in AM - Sputum Gram stain, C+S - Heparin 5000 U SQ BID - Azithromycine 500 po daily - Supplementary O2, titrate as needed to maintain SPO2 greater than 92% 02/17--Dyspnea persists; patient abmulated throughout with O2 support and SPO2 dropped to 87% and returned to >90% with rest. Lungs remained diminished with fine expiratory wheezing throughout. She remains unsafe for d/c at this time with risk for respiratory failure. With persistent wheezing I plan to increase IV steroid dosing to 60mg Q6H. Continue with plan as above. RIP negative, Sputum culture pending receipt. (2) Diabetes mellitus Current Visit: No Status: Chronic Assessment and Plan: Increased coverage to high sliding scale Prandial insulin 6 units TIDWM basal coverage increased to 15 units BID DM DIET AC/HS FSBG (3) Hyperlipidemia Current Visit: No Status: Chronic Assessment and Plan: LDL 104, continue statin (4) Hypertension Current Visit: No Status: Chronic Assessment and Plan: Hypertensive this morning; home blood pressure medications given Increase metoprolol to 50 mg twice a day as the patient is also noted to be tachycardic and can tolerate increased dose Continue to closely monitor D/C with increased metoprolol 50mg BID dosing (5) DVT prophylaxis Current Visit: No Status: Chronic Assessment and Plan: Heparin 5000 SC BID - Time Spent with Patient Total time spent is greater than 50% in coordination of care (as documented) at patient's floor/unit and/or counseling patient: less than 15 minutes Plan of Care Discussed with: patient Internal Medicine: Result - Labs CBC & Chem 7: 02/17/18 03:17 02/17/18 03:17 Labs: Short CBC 02/17/18 Range/Units 03:17 WBC 8.2 D (4.3-11.1) K/mcL Hgb 11.5 (11.5-15.4) g/dL Hct 37.0 (35.3-44.9) % Plt Count 394 (140-400) K/mcL Neutrophils # 7.5 (1.6-8.9) K/mcL BMP 02/17/18 03:17 Sodium 135 L Potassium 4.5 Chloride 98 Carbon Dioxide 29 BUN 26 H Creatinine 0.71 Glucose 446 H Calcium 9.4 Cardiac Enzymes 02/16/18 Range/Units 10:53 Troponin I < 0.03 (< 0.04) ng/mL - ABG Interpretation ABG results: PT/INR, D-dimer PT 13.0 Seconds (9.4-12.1) H 02/16/18 03:37 - VTE Documentation of Mechanical Device: Graduated compression elastic hosiery Consult Discharge Plan - Plan Additional Instructions: Call [facility] to have them deliver Bedside commode #[phone] Referrals: Lee Ann Macias DO [Resident] - 02/24/18 10:30 am (Please arrive to appointment 30 minutes early to complete paperwork. Please bring photo I.D, insurance card, and any medications you are currently taking. If needing to cancel appointment, office request cancellations be 24 hrs before scheduled appointment. 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
[2018-02-17] MEDS ORDERED: Naloxone 0.4 MG/ML INJ IVP PRN (18:32)
[2018-02-17] MEDS: Azithromycin 250 MG TABLET PO SCH (20:15)
[2018-02-18] MEDS: *HR* OxyCODONE/APAP 10/325 TABLET PO PRN ×3 (00:35→17:14)
[2018-02-18] MEDS: Ondansetron 4 MG/2 ML VIAL IVP PRN ×4 (00:35→19:30)
[2018-02-18] MEDS: MethylPREDNISolone 40 MG/ML VIAL IVP SCH ×3 (00:36→12:19)
[2018-02-18] MEDS: Ipratropium/Albuterol Neb 3 ML IH SCH ×6 (03:46→23:48)
[2018-02-18 05:48] LABS: Basophils % 0.2 %; Hematocrit 35.4 % (35.3-44.9); Hemoglobin 10.9 g/dL (11.5-15.4); Immature Granulocytes % 1.4 % (0-4); Lymphocytes # 0.6 K/mcL (0.6-4.6); Mean Corpuscular HGB Conc 30.8 g/dL (31.6-35.5); Mean Corpuscular Hemoglobin 28.1 pg (28.0-33.3); Mean Corpuscular Volume 91.2 fL (83.0-100.0); Mean Platelet Volume 10.8 fL (9.4-12.4); Monocytes # 0.2 K/mcL (0.0-1.3); Monocytes % 2.2 %; Neutrophils # 7.6 K/mcL (1.6-8.9); Platelet Count 354 K/mcL (140-400); Red Blood Count 3.88 M/mcL (3.82-4.97); Red Cell Distribution Width 15.2 % (11.5-14.5); Segmented Neutrophils % 89.2 %
[2018-02-18 06:04] LABS: BUN/Creatinine Ratio 33 (6-26); Blood Urea Nitrogen 33 mg/dL (8-23); Calcium 9.2 mg/dL (8.6-10.3); Carbon Dioxide 32 mEq/L (23-29); Chloride 97 mEq/L (98-107); Glucose 406 mg/dL (70-105); Osmolality,Calculated 306 (280-300); Potassium 4.6 mEq/L (3.5-5.1); Sodium 136 mEq/L (136-145); eGFR For Non-African Americans 57 (> 60)
[2018-02-18] MEDS: *HR* Heparin 5,000 UNIT/ML VIAL SQ SCH ×2 (06:36→17:22)
[2018-02-18] MEDS: Budesonide/Formoterol 160/4.5 1 PUFF INH IH SCH ×2 (07:58→20:36)
[2018-02-18] MEDS: cloNIDine HCl 0.1 MG TABLET PO SCH ×4 (08:41→20:21)
[2018-02-18] MEDS: amLODIPine 5 MG TABLET PO SCH (08:41)
[2018-02-18] MEDS: Nystatin SUSP 5 ML UD.LIQ PO SCH ×4 (08:41→20:22)
[2018-02-18] MEDS: Aspirin Enteric Coated 81 MG Tablet PO SCH (08:41)
[2018-02-18] MEDS: Famotidine 20 MG TABLET PO SCH (08:41)
[2018-02-18] MEDS: Insulin LISPRO 300 UNITS/3 ML VIAL SQ SCH ×7 (08:42→20:18)
[2018-02-18] MEDS: Insulin DETEMIR 100 UNIT/ML X5UNITS SQ SCH ×2 (12:19→20:19)
--- NOTE | 2018-02-18 15:08 | Internal Med Progress Note ---
Hospitalist Progress Note - Encounter Date of Encounter: 02/18/18 Time of Encounter: 14:59 - Subjective Interval History: Patient is resting comfortably in bed at this time. She is reporting continued dyspnea with exertion and a dry hacking non productive cough. At rest she is without respiratory distress but does continue to have a prolonged expiratory and conversational dyspnea. - Exam Vitals: Temp Pulse Resp BP Pulse Ox 97.4 F L 70 18 144/81 97 02/18/18 12:02 02/18/18 12:02 02/18/18 12:02 02/18/18 12:02 02/18/18 12:02 Exam: PHYSICAL EXAMINATION: GENERAL: The patient is an elderly female, ill appearing, NAD, and O 3 HEENT: Head is normocephalic and atraumatic. EOMI, PERRLA NECK: Supple. No carotid bruits. No lymphadenopathy or thyromegaly. LUNGS: Diminished bilaterally throughout B/L, minimal air movement and prolonged expiratory phase as well as conversational dyspnea HEART: Regular rate and rhythm, S1, S2 without murmur, rubs or gallops. ABDOMEN: Soft, nontender, and nondistended. Positive bowel sounds. No hepatosplenomegaly was noted. EXTREMITIES: Without any cyanosis, clubbing, rash, lesions or edema. NEUROLOGIC: Cranial nerves II through XII are grossly intact. PSYCHIATRIC: Appropriate affect, does not appear anxious SKIN: No ulceration or induration present. - Assessment and Plan (1) Acute exacerbation of chronic obstructive airways disease Current Visit: No Status: Acute Assessment and Plan: SOB due to COPD exacerbation Lungs are diminished throughout with fine expiratory wheezing Patient dyspneic with exertion She has continued to have a cough with sputum production PLAN: - Aerosols q 4 hr MARBIN for SOB and wheezing - Solu-medrol 60 mg IV q 6 hr - CBCD, BMP in AM - Sputum Gram stain, C+S-pending receipt; Stenotrophomonas Maltophilia infection in 07/08 - She does not appear to have PNA on CXR - Heparin 5000 U SQ BID - Azithromycine 500 po daily - Supplementary O2, titrate as needed to maintain SPO2 greater than 92% - RIP negative 02/18--Dyspnea persists today. She continues to have diminished breath sounds throughout as well as conversational dyspnea. She was hypoxic on O2 3LNC. I believe that she is high-risk for respiratory failure if she were to d/c. CTA chest r/o PE at cause of dyspnea and increasing O2 requirements. I will consult pulmonology for further evaluation and recommendation. (2) Diabetes mellitus Current Visit: No Status: Chronic Assessment and Plan: On IV steroids; hyperglycemia persists Increased coverage to high sliding scale Prandial insulin 10 units TIDWM basal coverage increased to 15 units BID DM DIET AC/HS FSBG (3) Hyperlipidemia Current Visit: No Status: Chronic Assessment and Plan: LDL 104, continue statin (4) Hypertension Current Visit: No Status: Chronic Assessment and Plan: Hypertensive this morning; home blood pressure medications given Increase metoprolol to 50 mg twice a day as the patient is also noted to be tachycardic and can tolerate increased dose Continue to closely monitor D/C with increased metoprolol 50mg BID dosing (5) DVT prophylaxis Current Visit: No Status: Chronic Assessment and Plan: Heparin 5000 SC BID - Time Spent with Patient Total time spent is greater than 50% in coordination of care (as documented) at patient's floor/unit and/or counseling patient: less than 15 minutes Plan of Care Discussed with: patient Internal Medicine: Result - Labs CBC & Chem 7: 02/18/18 04:36 02/18/18 04:36 Labs: Short CBC 02/18/18 Range/Units 04:36 WBC 8.5 (4.3-11.1) K/mcL Hgb 10.9 L (11.5-15.4) g/dL Hct 35.4 (35.3-44.9) % Plt Count 354 (140-400) K/mcL Neutrophils # 7.6 (1.6-8.9) K/mcL BMP 02/18/18 04:36 Sodium 136 Potassium 4.6 Chloride 97 L Carbon Dioxide 32 H BUN 33 H Creatinine 0.99 Glucose 406 H Calcium 9.2 - ABG Interpretation ABG results: PT/INR, D-dimer PT 13.0 Seconds (9.4-12.1) H 02/16/18 03:37 - VTE Documentation of Mechanical Device: Graduated compression elastic hosiery Consult Discharge Plan - Plan Additional Instructions: Call [facility] to have them deliver Bedside commode #[phone] Referrals: Lee Ann Macias DO [Resident] - 02/24/18 10:30 am (Please arrive to appointment 30 minutes early to complete paperwork. Please bring photo I.D, insurance card, and any medications you are currently taking. If needing to cancel appointment, office request cancellations be 24 hrs before scheduled appointment. 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
[2018-02-18] MEDS ORDERED: Furosemide 40 MG/4 ML VIAL IVP ONE ×2 (15:15→15:23)
[2018-02-18] MEDS ORDERED: Isovue-370 500 ML INFUS..BTL IV ONE (16:24)
[2018-02-18] MEDS: methylPREDNISolone 125 MG/2 ML VIAL IM SCH (17:13)
[2018-02-18] MEDS: Furosemide 20 MG/2 ML VIAL IVP SCH (17:16)
[2018-02-18] MEDS ORDERED: MethylPREDNISolone 40 MG/ML VIAL IVP SCH (18:00)
[2018-02-18] MEDS: Azithromycin 250 MG TABLET PO SCH (20:22)
[2018-02-19] MEDS: methylPREDNISolone 125 MG/2 ML VIAL IM SCH ×4 (00:19→17:23)
[2018-02-19] MEDS: *HR* OxyCODONE/APAP 10/325 TABLET PO PRN ×3 (01:35→19:29)
[2018-02-19] MEDS: Ondansetron 4 MG/2 ML VIAL IVP PRN ×3 (01:35→15:21)
[2018-02-19] MEDS: Ipratropium/Albuterol Neb 3 ML IH SCH ×5 (04:24→20:48)
[2018-02-19] MEDS: *HR* Heparin 5,000 UNIT/ML VIAL SQ SCH ×2 (05:40→17:23)
--- NOTE | 2018-02-19 06:50 | Pulmonology Consult Note ---
Date of Encounter: 02/19/18 Time of Encounter: 06:49 Assessment and Plan (1) Acute exacerbation of chronic obstructive airways disease Current Visit: No Status: Acute In conclusion this is a 58-year-old woman with a past medical history of very severe COPD I reviewed her PFTs which were notable for a very severe obstruction (FEV1 =28%) back in 2017. CT angiogram was reviewed on this visit which was negative for filling defect are clear evidence of infectious process. She has presented with a COPD exacerbation and lower respiratory tract symptoms over the last month or so. Despite aggressive management with bronchodilators IV antibiotics and IV glucocorticoids there is been no significant improvement in symptoms. In addition the patient has a history of prior stenotrophomonas infection requiring prolonged antimicrobial administration. Respiratory infection panel is thus far negative for viral etiologies Recs: -Please obtain blood cultures and repeat sputum cultures if not already done so - I suspect the patient can be transitioned to oral blood prednisone 40 mg she should complete a prolonged taper over the next 2-3 weeks -It is reasonable to continue macrolide at this time for anti-inflammatory properties -Agree with continued bronchodilators and Symbicort 160/4.52 puffs twice a day -Given the chronicity assess symptoms and persistence despite inpatient management on 2 separate occasions I gave the patient the option of empiric treatment of possible stenotrophomonas infection versus bronchoscopy and she wanted to proceed with bronchoscopy which is not unreasonable given chronicity A bronchoscopy is recommended. The procedure , risks, benefits, complications, and expected outcomes have been reviewed. Benefits of diagnosis, as well as risks to include bleeding, infection, pneumothorax which may require surgical intervention, and in a small population THE patient is aware that sometimes test is nondiagnostic. Discussed with patient and agrees to proceed. -Please Keep NPO at MN -I am unclear the patients home CPAP settings at this time but did start AutoPap 4-12 with FiO2 bleed to keep saturation greater than 88% -Inpatient chemical DVT prophylaxis unless contraindication arises -Pulmonary will continue to follow regardless she will need outpatient follow-up to continue care in the neck over next 2-3 weeks after discharge Thank you for the consultation (2) Acute respiratory failure Current Visit: No Status: Resolved Qualifiers: Respiratory failure complication: hypoxia and hypercapnia Qualified Code(s): J96.01 - Acute respiratory failure with hypoxia; J96.02 - Acute respiratory failure with hypercapnia (3) History of tobacco abuse Current Visit: No Status: Chronic (4) JORGE (obstructive sleep apnea) Current Visit: No Status: Chronic (5) History of infection due to multidrug resistant Stenotrophomonas maltophilia Current Visit: Yes Status: Acute (6) JORGE (obstructive sleep apnea) Current Visit: Yes Status: Acute History of Present Illness Consult date: 02/19/18 Requesting physician: Alfred Nagel Reason for consult: COPD Chief complaint: Difficulty in Breathing History of present illness: This is a 58-year-old woman with a past medical history of COPD and obstructive sleep apnea who presents with the difficulty breathing chest congestion and productive cough. She says that symptoms actually started to the early part of January and she was hospitalized at that time discharged and then had to be readmitted around the time of [place] symptoms are not definitely improved. She denies any fevers or chills nor hemoptysis she denies any weight loss. She has not been compliant with CPAP therapy recently because her machine broke and she has not had a follow-up visit to get a new prescription for it. She has a complex medical history including chronic respiratory failure infection required mechanical ventilation at one point and that is when she stop smoking. She is also had a history of stenotrophomonas over the last year and this was treated and x-ray cleared up she is concerned that it may have come back. Was consulted because the patient has been admitted for several days but her symptoms have not improved markedly. She still having diffuse wheezing chest congestion and labored breathing. 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 Psychiatric history: anxiety, depression - Past Surgical History Surgical History: appendectomy, cholecystectomy, knee replacement, ureteral stent Additional surgical history: renal artery stent - Social History Smoking Status: Former smoker Smokeless Tobacco Status: No Alcohol use: none Drug use: none - Family History Father Family Member Ethnicity: Non- Living Status: Hx Family Cardiac Disorders: Yes Hx Family Respiratory Disorders: No Hx Family Cancer: No Hx Family GI Disorders: No Hx Family Endocrine Disorder: No Hx Family Neuromuscular Disorders: No Hx Family Neurologic Disorders: No Hx Family HEENT Disorders: No Hx Family Autoimmune Disorders: No Mother Adopted: No Family Member Ethnicity: Non- Living Status: Still Living Hx Family Cardiac Disorders: No Hx Family Respiratory Disorders: No Hx Family Cancer: No Hx Family GI Disorders: No Hx Family Endocrine Disorder: Yes (DM) Hx Family Neuromuscular Disorders: No Hx Family Neurologic Disorders: No Hx Family HEENT Disorders: No Hx Family Autoimmune Disorders: Yes (Arthritis) Medications and Allergies Oxygen 3 l IH AD 07/19/16 [History] raNITIdine HCl [Zantac] 150 mg PO DAILY 11/20/16 [History] Nitroglycerin [Nitrostat] 0.4 mg PO Q5M PRN 06/03/17 [History] Albuterol Sulfate [Ventolin Hfa] 2 puff IH Q4H PRN #1 inh 07/07/17 [Rx] Furosemide [Lasix] 40 mg PO DAILY PRN #30 tablet 07/07/17 [Rx] cloNIDine HCl [Clonidine HCl] 0.3 mg PO QID #90 tablet 07/07/17 [Rx] Budesonide/Formoterol 160/4.5 [Symbicort 160/4.5] 2 puff IH BID 08/06/17 [History] Insulin NPH Hum/Reg Insulin Hm [Novolin 70-30 100 Unit/ml Vial] 0 unit SQ TID PRN 08/18/17 [History] Aspirin Enteric Coated [Aspirin EC] 81 mg PO DAILY tablet. 10/09/17 [Rx] Atorvastatin [Lipitor] 40 mg PO DAILY 01/21/18 [History] Buspirone HCl [Buspar] 10 mg PO TID 01/21/18 [History] Insulin NPH Human Isophane [Novolin N] 20 - 25 unit SQ BID 01/21/18 [History] Ipratropium/Albuterol Neb [Duoneb] 3 ml IH Q4H 01/21/18 [History] Metoprolol [Lopressor] 25 mg PO BID 01/21/18 [History] amLODIPine [Norvasc] 10 mg PO DAILY 02/15/18 [History] Allergy/AdvReac Type Severity Reaction Status Date / Time NSAIDS (Non-Steroidal Allergy Unknown See Verified 08/06/17 04:34 Anti-Inflamma Comments Penicillins Allergy Unknown Hives Verified 08/06/17 04:34 lisinopril AdvReac Cough Verified 08/06/17 04:34 lorazepam [From Ativan] AdvReac Confusion Verified 08/06/17 04:34 tramadol AdvReac Nausea Verified 08/06/17 04:34 All Systems: The remainder of the systems were reviewed and are negative Physical Examination Vital Signs: Vital Signs, Last 4 Hours Temp Pulse Resp BP Pulse Ox 02/19/18 04:39 18 89 02/19/18 03:01 97.9 F 69 15 131/66 95 General appearance: no acute distress Eyes: nonicteric Neck: supple, no lymphadenopathy Effort: mildly labored Auscultation: bilateral: diminished breath sounds, wheezes (diffuse expiratory wheezing ) Cardiovascular: regular rate and rhythm Gastrointestinal: normoactive bowel sounds, soft, non-tender Integumentary: normal Extremities: no cyanosis, no edema, no clubbing, pink and warm Musculoskeletal: no deformities normal mental status, non-focal exam mood appropriate Results - Laboratory Findings CBC and BMP: 02/19/18 06:44 02/19/18 06:44 PT/INR, D-dimer PT 13.0 Seconds (9.4-12.1) H 02/16/18 03:37 Abnormal lab findings: Abnormal lab results Hgb 10.9 g/dL (11.5-15.4) L 02/18/18 04:36 MCHC 30.8 g/dL (31.6-35.5) L 02/18/18 04:36 RDW 15.2 % (11.5-14.5) H 02/18/18 04:36 Nucleated RBCs/100 WBC 0.4 /100 WBC (0) H 02/15/18 21:28 PT 13.0 Seconds (9.4-12.1) H 02/16/18 03:37 Chloride 97 mEq/L (98-107) L 02/18/18 04:36 Carbon Dioxide 32 mEq/L (23-29) H 02/18/18 04:36 BUN 33 mg/dL (8-23) H 02/18/18 04:36 Est GFR (Non-Af Amer) 57 (> 60) L 02/18/18 04:36 BUN/Creatinine Ratio 33 (6-26) H 02/18/18 04:36 Glucose 406 mg/dL (70-105) H 02/18/18 04:36 POC Glucose 351 mg/dL (70-99) H 02/18/18 20:02 Calculated Osmolality 306 (280-300) H 02/18/18 04:36 Magnesium 1.2 mg/dL (1.6-2.6) L 02/16/18 03:37 Total Bilirubin 0.2 mg/dL (0.3-1.0) L 02/16/18 03:37 AST 8 Units/L (13-39) L 02/16/18 03:37 Alkaline Phosphatase 128 Units/L (34-104) H 02/16/18 03:37 LDL Cholesterol, Calc 104 mg/dL (0-99) H 02/16/18 03:37 - Diagnostic Findings Chest x-ray: report reviewed, image reviewed CT scan - chest: report reviewed, image reviewed - Clinical Findings Intake & Output: Intake & Output 02/18/18 02/18/18 02/19/18 15:59 23:59 07:59 Intake Total 720 / 720 237 / 237 Output Total 800 / 800 550 / 550 Balance 720 / 720 -800 / -800 -313 / -313 Weight 84.6 kg Consult Discharge Plan - Plan Additional Instructions: Call [facility] to have them deliver Bedside commode #[phone] Referrals: Lee Ann Macias DO [Resident] - 02/24/18 10:30 am (Please arrive to appointment 30 minutes early to complete paperwork. Please bring photo I.D, insurance card, and any medications you are currently taking. If needing to cancel appointment, office request cancellations be 24 hrs before scheduled appointment. )
[2018-02-19 08:00] LABS: Basophils # 0.1 K/mcL (0.0-0.2); Basophils % 0.7 %; Hemoglobin 11.7 g/dL (11.5-15.4); Immature Granulocytes % 4.2 % (0-4); Lymphocytes # 0.5 K/mcL (0.6-4.6); Mean Corpuscular HGB Conc 32.5 g/dL (31.6-35.5); Mean Corpuscular Hemoglobin 28.4 pg (28.0-33.3); Mean Corpuscular Volume 87.4 fL (83.0-100.0); Mean Platelet Volume 10.8 fL (9.4-12.4); Monocytes # 0.2 K/mcL (0.0-1.3); Monocytes % 3.4 %; Neutrophils # 5.6 K/mcL (1.6-8.9); Nucleated Red Blood Cells 0.3 /100 WBC (0); Platelet Count 330 K/mcL (140-400); Red Blood Count 4.12 M/mcL (3.82-4.97); Red Cell Distribution Width 14.8 % (11.5-14.5); Segmented Neutrophils % 83.7 %
[2018-02-19] MEDS: Nystatin SUSP 5 ML UD.LIQ PO SCH ×4 (08:09→20:29)
[2018-02-19] MEDS: amLODIPine 5 MG TABLET PO SCH (08:10)
[2018-02-19] MEDS: Aspirin Enteric Coated 81 MG Tablet PO SCH (08:10)
[2018-02-19] MEDS: Furosemide 20 MG/2 ML VIAL IVP SCH ×2 (08:10→17:24)
[2018-02-19] MEDS: Famotidine 20 MG TABLET PO SCH (08:10)
[2018-02-19] MEDS: cloNIDine HCl 0.1 MG TABLET PO SCH ×4 (08:10→20:28)
[2018-02-19] MEDS: Insulin LISPRO 300 UNITS/3 ML VIAL SQ SCH ×7 (08:12→20:23)
[2018-02-19] MEDS: Insulin DETEMIR 100 UNIT/ML X5UNITS SQ SCH ×2 (08:17→20:29)
[2018-02-19 08:18] LABS: BUN/Creatinine Ratio 40 (6-26); Blood Urea Nitrogen 33 mg/dL (8-23); Calcium 8.9 mg/dL (8.6-10.3); Carbon Dioxide 29 mEq/L (23-29); Chloride 95 mEq/L (98-107); Glucose 407 mg/dL (70-105); Osmolality,Calculated 306 (280-300); Potassium 4.4 mEq/L (3.5-5.1); Sodium 136 mEq/L (136-145); eGFR For Non-African Americans > 60 (> 60)
[2018-02-19] MEDS: Budesonide/Formoterol 160/4.5 1 PUFF INH IH SCH ×2 (08:25→20:48)
--- NOTE | 2018-02-19 16:00 | Internal Med Progress Note ---
Hospitalist Progress Note - Encounter Date of Encounter: 02/19/18 Time of Encounter: 15:58 - Subjective Interval History: dyspnea persists otherwise no acute change in condition - Exam Vitals: Temp Pulse Resp BP Pulse Ox 97.5 F L 71 16 128/78 96 02/19/18 12:09 02/19/18 12:09 02/19/18 12:09 02/19/18 12:09 02/19/18 12:09 Exam: PHYSICAL EXAMINATION: GENERAL: The patient is an elderly female, ill appearing, NAD, and O 3 HEENT: Head is normocephalic and atraumatic. EOMI, PERRLA NECK: Supple. No carotid bruits. No lymphadenopathy or thyromegaly. LUNGS: Diminished bilaterally throughout with diffuse expiratory wheezing B/L, minimal air movement and prolonged expiratory phase as well as conversational dyspnea HEART: Regular rate and rhythm, S1, S2 without murmur, rubs or gallops. ABDOMEN: Soft, nontender, and nondistended. Positive bowel sounds. No hepatosplenomegaly was noted. EXTREMITIES: Without any cyanosis, clubbing, rash, lesions or edema. NEUROLOGIC: Cranial nerves II through XII are grossly intact. PSYCHIATRIC: Appropriate affect, does not appear anxious SKIN: No ulceration or induration present. - Assessment and Plan (1) Acute exacerbation of chronic obstructive airways disease Current Visit: No Status: Acute Assessment and Plan: SOB due to COPD exacerbation Lungs are diminished throughout with fine expiratory wheezing Patient dyspneic with exertion She has continued to have a cough with sputum production PLAN: - Aerosols q 4 hr MARBIN for SOB and wheezing - Solu-medrol 60 mg IV q 6 hr - CBCD, BMP in AM - Sputum Gram stain, C+S-pending receipt; Stenotrophomonas Maltophilia infection in 07/08 - She does not appear to have PNA on CXR - Heparin 5000 U SQ BID - Azithromycine 500 po daily - Supplementary O2, titrate as needed to maintain SPO2 greater than 92% - RIP negative 02/19--dyspnea at his persistent. She has had aggressive intervention with IV steroids and regular nebs and is continuing to have diminished air movement in the setting of severe obstructive pulmonary disease. Pulmonology has been consulted for further recommendations; they are appreciated. She has had a recent pulmonary infection with Stenotrophomonas infection requiring prolonged ABX. Workup has been negative thus far. She will have bronchoscopic tomorrow. NPO after midnight. (2) Diabetes mellitus Current Visit: No Status: Chronic Assessment and Plan: persistent hyperglycemia d/t IV steroids high sliding scale Prandial insulin 10 units TIDWM basal coverage increased to 15 units BID DM DIET AC/HS FSBG (3) Hyperlipidemia Current Visit: No Status: Chronic Assessment and Plan: LDL 104, continue statin (4) Hypertension Current Visit: No Status: Chronic Assessment and Plan: Hypertensive this morning; home blood pressure medications given BP stable this afternoon after administration of home meds. Continue to closely monitor D/C home with increased metoprolol 50mg BID dosing (5) DVT prophylaxis Current Visit: No Status: Chronic Assessment and Plan: Heparin 5000 SC BID - Time Spent with Patient Total time spent is greater than 50% in coordination of care (as documented) at patient's floor/unit and/or counseling patient: less than 15 minutes Plan of Care Discussed with: patient Internal Medicine: Result - Labs CBC & Chem 7: 02/19/18 06:44 02/19/18 06:44 Labs: Short CBC 02/19/18 Range/Units 06:44 WBC 6.7 (4.3-11.1) K/mcL Hgb 11.7 (11.5-15.4) g/dL Hct 36.0 (35.3-44.9) % Plt Count 330 (140-400) K/mcL Neutrophils # 5.6 (1.6-8.9) K/mcL BMP 02/19/18 06:44 Sodium 136 Potassium 4.4 Chloride 95 L Carbon Dioxide 29 BUN 33 H Creatinine 0.83 Glucose 407 H Calcium 8.9 - ABG Interpretation ABG results: PT/INR, D-dimer PT 13.0 Seconds (9.4-12.1) H 02/16/18 03:37 - Impressions Impressions Chest CTA 02/18/18 16:24 IMPRESSION: No evidence of pulmonary embolism or acute pulmonary abnormality. 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 Small pericardial effusion, similar to slightly worsened from prior CTA chest 06/09/2017. D/ / 02/18/2018 20:42:04 [facility] Interpreting Provider: Nikunj Easley MD - VTE Documentation of Mechanical Device: Graduated compression elastic hosiery Consult Discharge Plan - Plan Additional Instructions: Call [facility] to have them deliver Bedside commode #[phone] Referrals: Lee Ann Macias DO [Resident] - 02/24/18 10:30 am (Please arrive to appointment 30 minutes early to complete paperwork. Please bring photo I.D, insurance card, and any medications you are currently taking. If needing to cancel appointment, office request cancellations be 24 hrs before scheduled appointment. 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
[2018-02-19] MEDS: Azithromycin 250 MG TABLET PO SCH (20:28)
[2018-02-20] MEDS: Ipratropium/Albuterol Neb 3 ML IH SCH ×6 (00:13→20:38)
[2018-02-20] MEDS: methylPREDNISolone 125 MG/2 ML VIAL IM SCH ×4 (00:41→16:49)
[2018-02-20] MEDS: Ondansetron 4 MG/2 ML VIAL IVP PRN ×3 (00:41→16:48)
[2018-02-20] MEDS: *HR* OxyCODONE/APAP 10/325 TABLET PO PRN ×3 (04:28→22:46)
[2018-02-20] MEDS: *HR* Heparin 5,000 UNIT/ML VIAL SQ SCH ×2 (05:50→16:49)
[2018-02-20] MEDS: Budesonide/Formoterol 160/4.5 1 PUFF INH IH SCH ×2 (07:40→20:38)
[2018-02-20] MEDS: Furosemide 20 MG/2 ML VIAL IVP SCH ×2 (08:08→16:49)
[2018-02-20] MEDS: Insulin DETEMIR 100 UNIT/ML X5UNITS SQ SCH ×2 (08:09→21:01)
[2018-02-20] MEDS: Insulin LISPRO 300 UNITS/3 ML VIAL SQ SCH ×7 (08:10→21:02)
[2018-02-20] MEDS: Nystatin SUSP 5 ML UD.LIQ PO SCH ×4 (08:15→21:00)
[2018-02-20] MEDS: Aspirin Enteric Coated 81 MG Tablet PO SCH (08:15)
[2018-02-20] MEDS: cloNIDine HCl 0.1 MG TABLET PO SCH ×4 (08:15→21:00)
[2018-02-20] MEDS: Famotidine 20 MG TABLET PO SCH (08:15)
[2018-02-20] MEDS: amLODIPine 5 MG TABLET PO SCH (08:15)
--- NOTE | 2018-02-20 09:47 | Pulmonology Progress Note ---
<Virginia Malhotra N - Last Filed: 02/20/18 13:17> Date of Encounter: 02/20/18 Time of Encounter: 09:47 Assessment and Plan (1) Acute exacerbation of chronic obstructive airways disease Current Visit: No Status: Acute Patient is currently receiving bronchodilators, antibiotics, and glucocorticoid therapy. She reports continued dyspnea, and states that she tends to have "good days and bad days", as well as "good nights and bad nights". She states that she had only a short course of steroids after her last hospitalization. Plan: - Patient scheduled for bronchoscopy with BAL later this afternoon - Continue antibiotics, glucocorticoids, and bronchodilator therapy - Recommend extended 2-3 week steroid taper after discharge (2) Acute respiratory failure Current Visit: No Status: Resolved Qualifiers: Respiratory failure complication: hypoxia and hypercapnia Qualified Code(s): J96.01 - Acute respiratory failure with hypoxia; J96.02 - Acute respiratory failure with hypercapnia (3) History of tobacco abuse Current Visit: No Status: Chronic (4) JORGE (obstructive sleep apnea) Current Visit: No Status: Chronic (5) History of infection due to multidrug resistant Stenotrophomonas maltophilia Current Visit: Yes Status: Acute Subjective Interval history: Ms. Ren is a 58-year old female with a history of severe COPD who was admitted to the hospital due to acute respiratory failure and COPD exacerbation. She was seen and evaluated at the bedside today prior to bronchoscopy. She endorses continued shortness of breath, particularly with exertion. She denies any fevers or chills, and denies any new complaints or concerns. Objective PUL Vital signs: Last Vital Signs Temp 97.7 F 02/20/18 06:54 Pulse 71 02/20/18 06:54 Resp 16 02/20/18 07:43 BP 154/87 02/20/18 06:54 Pulse Ox 97 02/20/18 08:25 General appearance: no acute distress, alert Eyes: nonicteric ENT: oropharynx moist Effort: mildly labored Auscultation: bilateral: diminished breath sounds, wheezes Cardiovascular: regular rate and rhythm Integumentary: normal Extremities: no cyanosis, no clubbing Musculoskeletal: no deformities normal mental status, non-focal exam mood appropriate, affect normal Results - Laboratory Findings CBC and BMP: 02/19/18 06:44 02/19/18 06:44 PT/INR, D-dimer PT 13.0 Seconds (9.4-12.1) H 02/16/18 03:37 Abnormal lab findings: Abnormal lab results RDW 14.8 % (11.5-14.5) H 02/19/18 06:44 Immature Gran % 4.2 % (0-4) H 02/19/18 06:44 Lymphocytes # 0.5 K/mcL (0.6-4.6) L 02/19/18 06:44 Nucleated RBCs/100 WBC 0.3 /100 WBC (0) H 02/19/18 06:44 PT 13.0 Seconds (9.4-12.1) H 02/16/18 03:37 Chloride 95 mEq/L (98-107) L 02/19/18 06:44 BUN 33 mg/dL (8-23) H 02/19/18 06:44 BUN/Creatinine Ratio 40 (6-26) H 02/19/18 06:44 Glucose 407 mg/dL (70-105) H 02/19/18 06:44 POC Glucose 288 mg/dL (70-99) H 02/19/18 16:51 Calculated Osmolality 306 (280-300) H 02/19/18 06:44 Magnesium 1.2 mg/dL (1.6-2.6) L 02/16/18 03:37 Total Bilirubin 0.2 mg/dL (0.3-1.0) L 02/16/18 03:37 AST 8 Units/L (13-39) L 02/16/18 03:37 Alkaline Phosphatase 128 Units/L (34-104) H 02/16/18 03:37 LDL Cholesterol, Calc 104 mg/dL (0-99) H 02/16/18 03:37 - Clinical Findings Intake & Output: Intake & Output 02/19/18 02/20/18 02/20/18 23:59 07:59 15:59 Intake Total 0 / 0 Output Total 1200 / 1200 1500 / 1500 Balance -1200 / -1200 -1500 / -1500 0 / 0 - VTE Documentation of Mechanical Device: Graduated compression elastic hosiery Consult Discharge Plan - Plan Additional Instructions: Call [facility] to have them deliver Bedside commode #[phone] Referrals: Lee Ann Macias DO [Resident] - 02/24/18 10:30 am (Please arrive to appointment 30 minutes early to complete paperwork. Please bring photo I.D, insurance card, and any medications you are currently taking. If needing to cancel appointment, office request cancellations be 24 hrs before scheduled appointment. ) <Latrell Hogan - Last Filed: 02/20/18 17:16> Date of Encounter: 02/20/18 Objective PUL Vital signs: Last Vital Signs Temp 98.0 F 02/20/18 16:16 Pulse 88 02/20/18 16:16 Resp 18 02/20/18 16:16 BP 136/79 02/20/18 16:16 Pulse Ox 95 02/20/18 16:16 Results - Laboratory Findings CBC and BMP: 02/19/18 06:44 02/19/18 06:44 PT/INR, D-dimer PT 13.0 Seconds (9.4-12.1) H 02/16/18 03:37 Abnormal lab findings: Abnormal lab results RDW 14.8 % (11.5-14.5) H 02/19/18 06:44 Immature Gran % 4.2 % (0-4) H 02/19/18 06:44 Lymphocytes # 0.5 K/mcL (0.6-4.6) L 02/19/18 06:44 Nucleated RBCs/100 WBC 0.3 /100 WBC (0) H 02/19/18 06:44 PT 13.0 Seconds (9.4-12.1) H 02/16/18 03:37 Chloride 95 mEq/L (98-107) L 02/19/18 06:44 BUN 33 mg/dL (8-23) H 02/19/18 06:44 BUN/Creatinine Ratio 40 (6-26) H 02/19/18 06:44 Glucose 407 mg/dL (70-105) H 02/19/18 06:44 POC Glucose 288 mg/dL (70-99) H 02/19/18 16:51 Calculated Osmolality 306 (280-300) H 02/19/18 06:44 Magnesium 1.2 mg/dL (1.6-2.6) L 02/16/18 03:37 Total Bilirubin 0.2 mg/dL (0.3-1.0) L 02/16/18 03:37 AST 8 Units/L (13-39) L 02/16/18 03:37 Alkaline Phosphatase 128 Units/L (34-104) H 02/16/18 03:37 LDL Cholesterol, Calc 104 mg/dL (0-99) H 02/16/18 03:37 - Clinical Findings Intake & Output: Intake & Output 02/20/18 02/20/18 02/20/18 07:59 15:59 23:59 Intake Total 0 / 0 Output Total 1500 / 1500 Balance -1500 / -1500 0 / 0 - Attending Attestation I saw and evaluated this patient and my medical decision-making was reviewed with the Resident Physician. I agree with the documented findings, disposition and treatment plan as described except to the extent set forth below. We independently had [id number] contact with the patient Patient seen and examined at bedside Labs, radiology, chart personally reviewed. Patient had the bronchoscopy today now obvious findings in the tracheobronchial tree see my endoscopy note. BAL sent to look for any infectious source. The patient is doing better by tomorrow send her home on a two -three week taper follow-up with pulmonology in 2 weeks with azithromycin for 5 days if anything grows up in the BAL we will call her adjust the antibiotics accordingly. Only concern if she grows stenotrophomonas she will need the he the Bactrim on levofloxacin depends upon the sensitivity. This send her home on Duoneb nebulizer, Spiriva and Symbicort.
--- NOTE | 2018-02-20 11:05 | Anesthesia Evaluation PreOp ---
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: Denies Any Significant HX Other Medical History: Diabetes Type II, GERD, Other (peptic ulcer dz) Anesthesia History: No Prior Anesthetic Complications Alcohol Use: none Drug use: none Medications and Allergies Oxygen 3 l IH AD 07/19/16 [History] raNITIdine HCl [Zantac] 150 mg PO DAILY 11/20/16 [History] Nitroglycerin [Nitrostat] 0.4 mg PO Q5M PRN 06/03/17 [History] Albuterol Sulfate [Ventolin Hfa] 2 puff IH Q4H PRN #1 inh 07/07/17 [Rx] Furosemide [Lasix] 40 mg PO DAILY PRN #30 tablet 07/07/17 [Rx] cloNIDine HCl [Clonidine HCl] 0.3 mg PO QID #90 tablet 07/07/17 [Rx] Budesonide/Formoterol 160/4.5 [Symbicort 160/4.5] 2 puff IH BID 08/06/17 [History] Insulin NPH Hum/Reg Insulin Hm [Novolin 70-30 100 Unit/ml Vial] 0 unit SQ TID PRN 08/18/17 [History] Aspirin Enteric Coated [Aspirin EC] 81 mg PO DAILY tablet. 10/09/17 [Rx] Atorvastatin [Lipitor] 40 mg PO DAILY 01/21/18 [History] Buspirone HCl [Buspar] 10 mg PO TID 01/21/18 [History] Insulin NPH Human Isophane [Novolin N] 20 - 25 unit SQ BID 01/21/18 [History] Ipratropium/Albuterol Neb [Duoneb] 3 ml IH Q4H 01/21/18 [History] Metoprolol [Lopressor] 25 mg PO BID 01/21/18 [History] amLODIPine [Norvasc] 10 mg PO DAILY 02/15/18 [History] Allergy/AdvReac Type Severity Reaction Status Date / Time NSAIDS (Non-Steroidal Allergy Unknown See Verified 08/06/17 04:34 Anti-Inflamma Comments Penicillins Allergy Unknown Hives Verified 08/06/17 04:34 lisinopril AdvReac Cough Verified 08/06/17 04:34 lorazepam [From Ativan] AdvReac Confusion Verified 08/06/17 04:34 tramadol AdvReac Nausea Verified 08/06/17 04:34 - Meds/Allergy Pre-op Review Medications Reviewed: Yes Allergies Reviewed: Yes Beta Blockers on Current Med List: Yes If Beta Blockers taken, Date/Time (Last Dose taken): 815am today Anesthesia Results - Labs 02/19/18 06:44 02/19/18 06:44 - Imaging EKG: report reviewed (SINUS TACHYCARDIA Electronically Signed On 02-16-2018 17:38:19 EST by Luba Rea) Additional studies: 07/08/17 stress negative for ischemia EF 70% Anesthesia Exam Vital Signs/O2 Sat, Most Current Temp Pulse Resp BP Pulse Ox 97.7 F 71 16 154/87 97 02/20/18 06:54 02/20/18 06:54 02/20/18 07:43 02/20/18 06:54 02/20/18 08:25 Vital Signs/O2 Sat, Most Current Temp Pulse Resp BP Pulse Ox 97.6 F 66 18 148/74 98 02/20/18 11:38 02/20/18 11:38 02/20/18 11:38 02/20/18 11:38 02/20/18 11:38 Weight: 84kg NPO (# of Hours): >8 Pain Scale: 0 Pain Scale Used: Numeric (1 - 10) - HEENT Pupil (Motor): Pupils equal, EOMI Mallampati: III Teeth: Edentulous Oral Opening: Greater than 3 - SENIOR SOLUTIONS ENGINEER LOC: Oriented - Cardiac Rhythm: Regular - Pulmonary Breath Sounds: bilateral Clear Respiratory Effort: Labored Anesthesia Assess/Plan ASA Score: 4 Level of consciousness: Cooperative, Oriented Anesthetic Plan: General (potential prolonged intubation and ICU stay) Monitoring Plan: Standard Monitors Recovery Plan: PACU
[2018-02-20] MEDS ORDERED: *HR* Propofol 200 MG/20 ML VIAL IVP ONE (12:36)
[2018-02-20] MEDS ORDERED: Lidocaine -MPF 2% 2 ML VIAL ONE (12:37)
--- NOTE | 2018-02-20 12:52 | Internal Med Progress Note ---
Hospitalist Progress Note - Encounter Date of Encounter: 02/20/18 Time of Encounter: 12:48 - Subjective Interval History: dyspnea persists otherwise no acute change in condition. She will have a bronchoscopy today. - Exam Vitals: Temp Pulse Resp BP Pulse Ox 97.6 F 66 18 148/74 98 02/20/18 11:38 02/20/18 11:38 02/20/18 11:38 02/20/18 11:38 02/20/18 11:38 Exam: PHYSICAL EXAMINATION: GENERAL: The patient is an elderly female, ill appearing, NAD, and O 3 HEENT: Head is normocephalic and atraumatic. EOMI, PERRLA NECK: Supple. No carotid bruits. No lymphadenopathy or thyromegaly. LUNGS: Diminished bilaterally throughout, severe limitations of air movement in the setting of severe obstructive disease HEART: Regular rate and rhythm, S1, S2 without murmur, rubs or gallops. ABDOMEN: Soft, nontender, and nondistended. Positive bowel sounds. No hepa tosplenomegaly was noted. EXTREMITIES: Without any cyanosis, clubbing, rash, lesions or edema. NEUROLOGIC: Cranial nerves II through XII are grossly intact. PSYCHIATRIC: Appropriate affect, does not appear anxious SKIN: No ulceration or induration present. - Assessment and Plan (1) Acute exacerbation of chronic obstructive airways disease Current Visit: No Status: Acute Assessment and Plan: SOB due to COPD exacerbation Lungs are diminished throughout with fine expiratory wheezing Patient dyspneic with exertion She has continued to have a cough with sputum production PLAN: - Aerosols q 4 hr MARBIN for SOB and wheezing - Solu-medrol 60 mg IV q 6 hr - CBCD, BMP in AM - Sputum Gram stain, C+S-pending receipt; Stenotrophomonas Maltophilia infection in 07/08 - She does not appear to have PNA on CXR - Heparin 5000 U SQ BID - Azithromycine 500 po daily - Supplementary O2, titrate as needed to maintain SPO2 greater than 92% - RIP negative 02/20--presented with acute exacerbation of COPD. Chest x-ray negative for pneumonia. Respiratory infection panel negative for viral pathogens. Patient has a known history of severe obstructive airway disease and will require a long steroid taper at discharge. However, due to continued hypoxia with activity she is unsafe for discharge at this time with risk for respiratory failure. Pulmonology follow-up in consultation; recommendations appreciated. She is having a bronchoscopy today. Follow results. (2) Diabetes mellitus Current Visit: No Status: Chronic Assessment and Plan: persistent hyperglycemia d/t IV steroids high sliding scale Prandial insulin 10 units TIDWM basal coverage increased to 15 units BID DM DIET AC/HS FSBG (3) Hyperlipidemia Current Visit: No Status: Chronic Assessment and Plan: LDL 104, continue statin (4) Hypertension Current Visit: No Status: Chronic Assessment and Plan: BP mildly elevated this morning and this afternoon Continue antihypertensives at current dose And breakthrough antihypertensives as needed Continue to closely monitor (5) DVT prophylaxis Current Visit: No Status: Chronic Assessment and Plan: Heparin 5000 SC BID - Time Spent with Patient Total time spent is greater than 50% in coordination of care (as documented) at patient's floor/unit and/or counseling patient: less than 15 minutes Plan of Care Discussed with: patient Internal Medicine: Result - Labs CBC & Chem 7: 02/19/18 06:44 02/19/18 06:44 - ABG Interpretation ABG results: PT/INR, D-dimer PT 13.0 Seconds (9.4-12.1) H 02/16/18 03:37 - VTE Documentation of Mechanical Device: Graduated compression elastic hosiery Consult Discharge Plan - Plan Additional Instructions: Call [facility] to have them deliver Bedside commode #[phone] Referrals: Lee Ann Macias DO [Resident] - 02/24/18 10:30 am (Please arrive to appointment 30 minutes early to complete paperwork. Please bring photo I.D, insurance card, and any medications you are currently taking. If needing to cancel appointment, office request cancellations be 24 hrs before scheduled appointment. 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
--- NOTE | 2018-02-20 13:20 | Anesthesia Evaluation Post Op ---
Date of Encounter: 02/20/18 Time of Encounter: 13:19 - Vital Signs Vital Signs: Vital Signs/O2 Sat, Most Current Temp Pulse Resp BP Pulse Ox 97.8 F 76 16 179/95 91 02/20/18 13:12 02/20/18 13:12 02/20/18 13:12 02/20/18 13:12 02/20/18 13:12 - Lungs Lungs: Clear Ascult./Percussion - Airway Airway: Non-obstructed - Cardiovascular Regular Rate - Mental Status Mental Status: Baseline Status - Pain Pain Scale: 0 Pain Scale used: Numeric (1 - 10) - Nausea Vomiting Nausea Vomiting: Not Present - Hydration Hydration: NPO - Discharge PostOp Status: Transfer Patient to floor
[2018-02-20 18:37] LABS: Appearance of Body Fluid Cloudy (Clear); Volume of Body Fluid 15 mL
[2018-02-20 18:52] LABS: Appearance of Body Fluid Cloudy (Clear); Volume of Body Fluid 15 mL
[2018-02-20] MEDS: Azithromycin 250 MG TABLET PO SCH (21:01)
[2018-02-20] MEDS: methylPREDNISolone 125 MG/2 ML VIAL IVP SCH (22:47)
[2018-02-21] MEDS: Ipratropium/Albuterol Neb 3 ML IH SCH ×6 (00:04→20:23)
[2018-02-21] MEDS: Ondansetron 4 MG/2 ML VIAL IVP PRN ×2 (01:58→21:08)
[2018-02-21] MEDS: *HR* Heparin 5,000 UNIT/ML VIAL SQ SCH ×2 (05:51→18:02)
[2018-02-21] MEDS: methylPREDNISolone 125 MG/2 ML VIAL IVP SCH ×2 (05:52→12:06)
[2018-02-21] MEDS: *HR* OxyCODONE/APAP 10/325 TABLET PO PRN ×3 (06:31→21:07)
[2018-02-21] MEDS: Budesonide/Formoterol 160/4.5 1 PUFF INH IH SCH ×2 (07:44→20:23)
[2018-02-21] MEDS: Insulin LISPRO 300 UNITS/3 ML VIAL SQ SCH ×7 (08:36→21:09)
[2018-02-21] MEDS: amLODIPine 5 MG TABLET PO SCH (08:39)
[2018-02-21] MEDS: Furosemide 20 MG/2 ML VIAL IVP SCH ×2 (08:39→18:01)
[2018-02-21] MEDS: Nystatin SUSP 5 ML UD.LIQ PO SCH ×4 (08:40→21:07)
[2018-02-21] MEDS: cloNIDine HCl 0.1 MG TABLET PO SCH ×4 (08:40→21:08)
[2018-02-21] MEDS: Famotidine 20 MG TABLET PO SCH (08:40)
[2018-02-21] MEDS: Aspirin Enteric Coated 81 MG Tablet PO SCH (08:40)
--- NOTE | 2018-02-21 09:55 | Pulmonology Progress Note ---
<Virginia Malhotra N - Last Filed: 02/21/18 13:10> Date of Encounter: 02/21/18 Time of Encounter: 09:55 Assessment and Plan (1) Acute exacerbation of chronic obstructive airways disease Current Visit: No Status: Acute Patient reports feeling unwell this morning, and reports having coughed up a small amount of blood tinged sputum; however, she attributes this to having swallowed a pill incorrectly this morning. She denies any improvement in respiratory function at this time. Plan: - Status post bronchoscopy with bronchoalveolar lavage - Continue antibiotics, glucocorticoids, and bronchodilator therapy - Recommend extended 2-3 week steroid taper after discharge with outpatient follow-up in the pulmonology clinic (2) Acute respiratory failure Current Visit: No Status: Resolved Secondary to COPD exacerbation and possible pneumonia. - Continue antibiotics therapy - Continue bronchodilator therapy and steroids - Recommend use of incentive spirometry Qualifiers: Respiratory failure complication: hypoxia and hypercapnia Qualified Code(s): J96.01 - Acute respiratory failure with hypoxia; J96.02 - Acute respiratory failure with hypercapnia (3) History of tobacco abuse Current Visit: No Status: Chronic (4) JORGE (obstructive sleep apnea) Current Visit: No Status: Chronic (5) History of infection due to multidrug resistant Stenotrophomonas maltophilia Current Visit: Yes Status: Acute Patient had bronchoscopy with BAL yesterday. Sputum microbiology studies pending. - We will change antibiotics from azithromycin to doxycycline - We will notify patient of microbiology results when available, with further antibiotic adjustments as needed at that time Subjective Interval history: Patient was seen and evaluated at the bedside this morning. She reports no improvement in her respiratory symptoms, and states that she is feeling poorly overall. She does report that she typically feels poorly on days when it is raining. She denies any fevers, chills, or worsening chest congestion. She does report a small blood-tinged sputum this morning; however, she attributes this to having swallowed a pill incorrectly, and not actually to her lungs. She states that she does not feel bronchoscopy has helped her breathing at all. She inquires about changing her antibiotic therapy, as she feels she does not respond well to azithromycin, and she has taken it multiple times in the past. She denies any other acute complaints or concerns at this time. Objective PUL Vital signs: Last Vital Signs Temp 97.8 F 01/01/19 08:25 Pulse 94 02/21/18 08:25 Resp 19 02/21/18 08:25 BP 176/92 02/21/18 08:25 Pulse Ox 96 02/21/18 08:25 General appearance: alert, appears uncomfortable Eyes: nonicteric ENT: oropharynx moist Auscultation: bilateral: diminished breath sounds, wheezes Cardiovascular: regular rate and rhythm Integumentary: normal Extremities: no cyanosis Musculoskeletal: no deformities normal mental status, non-focal exam mood appropriate Results - Laboratory Findings CBC and BMP: 02/21/18 09:54 02/21/18 09:54 PT/INR, D-dimer PT 13.0 Seconds (9.4-12.1) H 02/16/18 03:37 Abnormal lab findings: Abnormal lab results RDW 14.8 % (11.5-14.5) H 02/19/18 06:44 Immature Gran % 4.2 % (0-4) H 02/19/18 06:44 Lymphocytes # 0.5 K/mcL (0.6-4.6) L 02/19/18 06:44 Nucleated RBCs/100 WBC 0.3 /100 WBC (0) H 02/19/18 06:44 PT 13.0 Seconds (9.4-12.1) H 02/16/18 03:37 Chloride 95 mEq/L (98-107) L 02/19/18 06:44 BUN 33 mg/dL (8-23) H 02/19/18 06:44 BUN/Creatinine Ratio 40 (6-26) H 02/19/18 06:44 Glucose 407 mg/dL (70-105) H 02/19/18 06:44 POC Glucose 367 mg/dL (70-99) H 02/20/18 19:50 Calculated Osmolality 306 (280-300) H 02/19/18 06:44 Magnesium 1.2 mg/dL (1.6-2.6) L 02/16/18 03:37 Total Bilirubin 0.2 mg/dL (0.3-1.0) L 02/16/18 03:37 AST 8 Units/L (13-39) L 02/16/18 03:37 Alkaline Phosphatase 128 Units/L (34-104) H 02/16/18 03:37 LDL Cholesterol, Calc 104 mg/dL (0-99) H 02/16/18 03:37 Fluid Appearance Cloudy (Clear) A 02/20/18 Unknown - Microbiology Findings Microbiology Findings: Microbiology, Last 48 Hours 02/20/18 Unknown Respiratory Culture - Preliminary Right Middle Lobe Lung 02/20/18 Unknown Respiratory Culture - Preliminary Left Lower Lobe Lung - Clinical Findings Intake & Output: Intake & Output 02/20/18 02/21/18 02/21/18 23:59 07:59 15:59 Output Total 500 / 500 Balance -500 / -500 Weight 83.574 kg - VTE Documentation of Mechanical Device: Graduated compression elastic hosiery Consult Discharge Plan - Plan Additional Instructions: Call [facility] to have them deliver Bedside commode #[phone] Referrals: Lee Ann Macias DO [Resident] - 02/24/18 10:30 am (Please arrive to appointment 30 minutes early to complete paperwork. Please bring photo I.D, insurance card, and any medications you are currently taking. If needing to cancel appointment, office request cancellations be 24 hrs before scheduled appointment. ) <Latrell Hogan - Last Filed: 02/21/18 15:58> Date of Encounter: 02/21/18 Objective PUL Vital signs: Last Vital Signs Temp 98.2 F 02/21/18 11:30 Pulse 73 02/21/18 11:30 Resp 16 02/21/18 15:31 BP 137/83 02/21/18 11:30 Pulse Ox 98 02/21/18 15:31 Results - Laboratory Findings CBC and BMP: 02/21/18 09:54 02/21/18 09:54 PT/INR, D-dimer PT 13.0 Seconds (9.4-12.1) H 02/16/18 03:37 Abnormal lab findings: Abnormal lab results RDW 14.6 % (11.5-14.5) H 02/21/18 09:54 Immature Gran % 4.6 % (0-4) H 02/21/18 09:54 Neutrophils # 9.1 K/mcL (1.6-8.9) H 02/21/18 09:54 Lymphocytes # 0.4 K/mcL (0.6-4.6) L 02/21/18 09:54 Nucleated RBCs/100 WBC 0.6 /100 WBC (0) H 02/21/18 09:54 PT 13.0 Seconds (9.4-12.1) H 02/16/18 03:37 Sodium 134 mEq/L (136-145) L 02/21/18 09:54 Chloride 91 mEq/L (98-107) L 02/21/18 09:54 Carbon Dioxide 31 mEq/L (23-29) H 02/21/18 09:54 BUN 31 mg/dL (8-23) H 02/21/18 09:54 BUN/Creatinine Ratio 38 (6-26) H 02/21/18 09:54 Glucose 475 mg/dL (70-105) H 02/21/18 09:54 POC Glucose 367 mg/dL (70-99) H 02/20/18 19:50 Calculated Osmolality 305 (280-300) H 02/21/18 09:54 Calcium 8.0 mg/dL (8.6-10.3) L 02/21/18 09:54 Magnesium 1.2 mg/dL (1.6-2.6) L 02/16/18 03:37 Total Bilirubin 0.2 mg/dL (0.3-1.0) L 02/16/18 03:37 AST 8 Units/L (13-39) L 02/16/18 03:37 Alkaline Phosphatase 128 Units/L (34-104) H 02/16/18 03:37 LDL Cholesterol, Calc 104 mg/dL (0-99) H 02/16/18 03:37 Fluid Appearance Cloudy (Clear) A 02/20/18 Unknown - Microbiology Findings Microbiology Findings: Microbiology, Last 48 Hours 02/20/18 Unknown Acid Fast Stain - Final Left Lower Lobe Lung 02/20/18 Unknown Acid Fast Stain - Final Right Middle Lobe Lung 02/20/18 Unknown Respiratory Culture - Preliminary Right Middle Lobe Lung 02/20/18 Unknown Respiratory Culture - Preliminary Left Lower Lobe Lung - Clinical Findings Intake & Output: Intake & Output 02/20/18 02/21/18 02/21/18 23:59 07:59 15:59 Intake Total 860 / 860 Output Total 1500 / 1500 Balance -640 / -640 Weight 83.574 kg - Attending Attestation I saw and evaluated this patient and my medical decision-making was reviewed with the Resident Physician. I agree with the documented findings, disposition and treatment plan as described except to the extent set forth below. We independently had [id number] contact with the patient Patient seen and examined at bedside Labs, radiology, chart personally reviewed. Patient is in COPD exacerbation slowly getting better she is getting almost back to baseline. The BAL did not grow any pathogenic organism. If patient is back to baseline to a 6 minute walk before discharge on discharge due to with 2-3 weeks taper off prednisone and 7 days of doxycycline. Patient will need outpatient follow-up in [address] 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 Pulmonary will sign off please call with questions if condition changes
[2018-02-21] MEDS: Insulin DETEMIR 100 UNIT/ML X5UNITS SQ SCH ×2 (10:08→21:09)
[2018-02-21 10:12] LABS: Basophils # 0.1 K/mcL (0.0-0.2); Basophils % 0.9 %; Hematocrit 38.6 % (35.3-44.9); Hemoglobin 12.3 g/dL (11.5-15.4); Immature Granulocytes % 4.6 % (0-4); Lymphocytes # 0.4 K/mcL (0.6-4.6); Lymphocytes % 3.6 %; Mean Corpuscular HGB Conc 31.9 g/dL (31.6-35.5); Mean Corpuscular Hemoglobin 28.1 pg (28.0-33.3); Mean Corpuscular Volume 88.3 fL (83.0-100.0); Mean Platelet Volume 10.3 fL (9.4-12.4); Monocytes # 0.2 K/mcL (0.0-1.3); Nucleated Red Blood Cells 0.6 /100 WBC (0); Platelet Count 356 K/mcL (140-400); Red Blood Count 4.37 M/mcL (3.82-4.97); Red Cell Distribution Width 14.6 % (11.5-14.5); Segmented Neutrophils % 88.9 %
[2018-02-21 10:15] LABS: Neutrophils # 9.1 K/mcL (1.6-8.9)
[2018-02-21 10:31] LABS: BUN/Creatinine Ratio 38 (6-26); Blood Urea Nitrogen 31 mg/dL (8-23); Carbon Dioxide 31 mEq/L (23-29); Chloride 91 mEq/L (98-107); Glucose 475 mg/dL (70-105); Osmolality,Calculated 305 (280-300); Potassium 3.8 mEq/L (3.5-5.1); Sodium 134 mEq/L (136-145); eGFR For Non-African Americans > 60 (> 60)
--- NOTE | 2018-02-21 11:25 | Internal Med Progress Note ---
Hospitalist Progress Note - Encounter Date of Encounter: 02/21/18 Time of Encounter: 11:25 - Subjective Interval History: This patient is new to me I did review medical records - I examined the patient at bedside She denies any CP has SOB states that she had "rough night" States she feels better after using CPAP- encourage patient to use CPAP - Exam Vitals: Temp Pulse Resp BP Pulse Ox 97.8 F 94 19 176/92 96 02/21/18 08:25 02/21/18 08:25 02/21/18 08:25 02/21/18 08:25 02/21/18 08:25 Exam: PHYSICAL EXAMINATION: GENERAL: The patient is an elderly female, ill appearing, NAD, and O 3 HEENT: Head is normocephalic and atraumatic. EOMI, PERRLA NECK: Supple. No carotid bruits. No lymphadenopathy or thyromegaly. LUNGS: Diminished bilaterally throughout, severe limitations of air movement in the setting of severe obstructive disease HEART: Regular rate and rhythm, S1, S2 without murmur, rubs or gallops. ABDOMEN: Soft, nontender, and nondistended. Positive bowel sounds. No hepatosplenomegaly was noted. EXTREMITIES: Without any cyanosis, clubbing, rash, lesions or edema. NEUROLOGIC: Cranial nerves II through XII are grossly intact. PSYCHIATRIC: Appropriate affect, does not appear anxious SKIN: No ulceration or induration present. - Assessment and Plan (1) Acute exacerbation of chronic obstructive airways disease Current Visit: No Status: Acute Assessment and Plan: SOB due to COPD exacerbation Lungs are diminished throughout with fine expiratory wheezing Patient dyspneic with exertion She has continued to have a cough with sputum production PLAN: - Aerosols q 4 hr MARBIN for SOB and wheezing - Solu-medrol 60 mg IV q 6 hr - CBCD, BMP in AM - Sputum Gram stain, C+S-pending receipt; Stenotrophomonas Maltophilia infection in 07/08 - She does not appear to have PNA on CXR - Heparin 5000 U SQ BID - Azithromycine 500 po daily - Supplementary O2, titrate as needed to maintain SPO2 greater than 92% - RIP negative 02/20--presented with acute exacerbation of COPD. Chest x-ray negative for pneumonia. Respiratory infection panel negative for viral pathogens. Patient has a known history of severe obstructive airway disease and will require a long steroid taper at discharge. However, due to continued hypoxia with activity she is unsafe for discharge at this time with risk for respiratory failure. Pulmonology follow-up in consultation; recommendations appreciated. She is having a bronchoscopy today. Follow results. 02/21/2018 Does not feel well this am - did cough up small amount of blood - had poor sleep did not use CPAP encourage patient to use CPAP Azithromycin completed cont steroids placed on doxy per pulmonology She does not appear to have PNA on CXR - Supplementary O2, titrate as needed to maintain SPO2 greater than 92% - RIP negative (2) Diabetes mellitus Current Visit: No Status: Chronic Assessment and Plan: persistent hyperglycemia d/t IV steroids-will attempt to step down steroids high sliding scale Prandial insulin 10 units TIDWM basal coverage increased to 15 units BID DM DIET AC/HS FSBG (3) DVT prophylaxis Current Visit: No Status: Chronic Assessment and Plan: Heparin 5000 SC BID (4) Hyperlipidemia Current Visit: No Status: Chronic Assessment and Plan: LDL 104, continue statin (5) Hypertension Current Visit: No Status: Chronic Assessment and Plan: controlled at this time Continue antihypertensives at current dose And breakthrough antihypertensives as needed Continue to closely monitor - Time Spent with Patient Total time spent is greater than 50% in coordination of care (as documented) at patient's floor/unit and/or counseling patient: Internal Medicine: Result - Labs CBC & Chem 7: 02/21/18 09:54 02/21/18 09:54 Labs: Short CBC 02/21/18 Range/Units 09:54 WBC 10.2 D (4.3-11.1) K/mcL Hgb 12.3 (11.5-15.4) g/dL Hct 38.6 (35.3-44.9) % Plt Count 356 (140-400) K/mcL Neutrophils # 9.1 H (1.6-8.9) K/mcL BMP 02/21/18 09:54 Sodium 134 L Potassium 3.8 Chloride 91 L Carbon Dioxide 31 H BUN 31 H Creatinine 0.82 Glucose 475 H Calcium 8.0 L - ABG Interpretation ABG results: PT/INR, D-dimer PT 13.0 Seconds (9.4-12.1) H 02/16/18 03:37 - VTE Documentation of Mechanical Device: Graduated compression elastic hosiery Consult Discharge Plan - Plan Additional Instructions: Call [facility] to have them deliver Bedside commode #[phone] Referrals: Lee Ann Macias DO [Resident] - 02/24/18 10:30 am (Please arrive to appointment 30 minutes early to complete paperwork. Please bring photo I.D, insurance card, and any medications you are currently taking. If needing to cancel appointment, office request cancellations be 24 hrs before scheduled appointment. 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
[2018-02-21] MEDS: Doxycycline 100 MG CAPSULE PO SCH ×2 (13:44→21:07)
[2018-02-21] MEDS: MethylPREDNISolone 40 MG/ML VIAL IVP SCH (18:01)
[2018-02-22] MEDS: Ipratropium/Albuterol Neb 3 ML IH SCH ×7 (00:26→23:27)
[2018-02-22] MEDS: *HR* OxyCODONE/APAP 10/325 TABLET PO PRN ×3 (04:04→21:04)
[2018-02-22] MEDS: Ondansetron 4 MG/2 ML VIAL IVP PRN ×4 (04:05→23:33)
[2018-02-22 05:44] LABS: Hematocrit 39.8 % (35.3-44.9); Hemoglobin 12.7 g/dL (11.5-15.4); Mean Corpuscular HGB Conc 31.9 g/dL (31.6-35.5); Mean Corpuscular Hemoglobin 28.2 pg (28.0-33.3); Mean Corpuscular Volume 88.4 fL (83.0-100.0); Mean Platelet Volume 10.8 fL (9.4-12.4); Nucleated Red Blood Cells 0.3 /100 WBC (0); Platelet Count 368 K/mcL (140-400); Red Cell Distribution Width 14.6 % (11.5-14.5)
[2018-02-22 06:06] LABS: BUN/Creatinine Ratio 43 (6-26); Blood Urea Nitrogen 39 mg/dL (8-23); Calcium 8.4 mg/dL (8.6-10.3); Carbon Dioxide 33 mEq/L (23-29); Chloride 97 mEq/L (98-107); Glucose 278 mg/dL (70-105); Osmolality,Calculated 307 (280-300); Potassium 3.8 mEq/L (3.5-5.1); Sodium 139 mEq/L (136-145); eGFR For Non-African Americans > 60 (> 60)
[2018-02-22 06:13] LABS: Lymphocytes # 1.5 K/mcL (0.6-4.6); Monocytes # 0.3 K/mcL (0.0-1.3); Neutrophils # 10.7 K/mcL (1.6-8.9); Platelet Estimate Normal (Normal); Reactive Lymphocytes Present (Not Present)
[2018-02-22 06:14] LABS: Polychromasia 1+ (Not Present)
[2018-02-22] MEDS: MethylPREDNISolone 40 MG/ML VIAL IVP SCH ×2 (06:36→17:26)
[2018-02-22] MEDS: *HR* Heparin 5,000 UNIT/ML VIAL SQ SCH ×2 (06:37→18:40)
[2018-02-22] MEDS: Budesonide/Formoterol 160/4.5 1 PUFF INH IH SCH ×2 (07:37→20:12)
[2018-02-22] MEDS: Insulin LISPRO 300 UNITS/3 ML VIAL SQ SCH ×7 (08:30→20:32)
[2018-02-22] MEDS: Furosemide 20 MG/2 ML VIAL IVP SCH ×2 (08:31→17:27)
[2018-02-22] MEDS: Doxycycline 100 MG CAPSULE PO SCH ×2 (08:31→20:23)
[2018-02-22] MEDS: cloNIDine HCl 0.1 MG TABLET PO SCH ×4 (08:31→20:22)
[2018-02-22] MEDS: Aspirin Enteric Coated 81 MG Tablet PO SCH (08:31)
[2018-02-22] MEDS: Famotidine 20 MG TABLET PO SCH (08:31)
[2018-02-22] MEDS: amLODIPine 5 MG TABLET PO SCH (08:31)
[2018-02-22] MEDS: Nystatin SUSP 5 ML UD.LIQ PO SCH ×4 (08:31→20:24)
[2018-02-22] MEDS: Insulin DETEMIR 100 UNIT/ML X5UNITS SQ SCH ×2 (08:37→20:31)
--- NOTE | 2018-02-22 14:34 | Discharge Summary ---
- NOTES TO OUTPATIENT PROVIDER Notes to Outpatient Provider: COPD exacerbation- BAL completed per pulmonology did not grow any pathogenic organism 2-3 week taper of prednisone and 7 days of doxycycline follow-up with pulmonology in 4 weeks Orders not resulted at time of discharge: Pending orders 02/23/18 04:00 CBC [Complete Blood Count] [HEME] AM 0400 Chem 7 [Basic Metabolic Panel] AM 0400 02/24/18 04:00 CBC [Complete Blood Count] [HEME] AM 0400 Chem 7 [Basic Metabolic Panel] AM 0400 02/16/18 10:25 Culture,Sputum with Gram Stain [RM] Routine 02/20/18 AFB Culture, Respiratory [TB] Routine AFB Culture, Respiratory [TB] Routine AFB Smear [TB] Routine AFB Smear [TB] Routine Fungal Culture [MYC] Routine Fungal Culture [MYC] Routine Legionella Culture [RM] Routine Legionella Culture [RM] Routine 02/20/18 12:55 Cytology [PTH] Routine Date of Encounter: 02/23/18 Time of Encounter: 13:41 - Discharge Diagnosis (1) Acute exacerbation of chronic obstructive airways disease Priority: Primary Status: Acute (2) Diabetes mellitus Priority: Secondary Status: Chronic Qualifiers: Diabetes mellitus type: type 2 Diabetes mellitus senior living insulin use: with terminal block 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 Ren is a 58 year old female past medical history of COPD and obstructive sleep apnea DM GERD HLD HTN - presents with the difficulty breathing chest congestion and productive cough. She says that symptoms actually started to the early part of January and she was hospitalized at that time discharged and then had to be readmitted around the time of [place] symptoms are not definitely improved. She has not been compliant with CPAP therapy recently because her machine broke and she has not had a follow-up visit to get a new prescription for it. Stenotrophomonas Maltophilia infection in 07/08 CXR with no pneumonia Sputum culture negative this admission RIP negative Pulmonology was consulted underwent bronchoscopy -The BAL did not grow any pathogenic organism. Pulmonology recommends long 2 week taper off prednisone and 7 days of doxycycline - She has been maintaining O2 sats 96-98% on home NC O2- she completed 6 min walk on home oxygen level and tolerated well with O2 sat of 95% Advised patient to follow up with PCP and pulmonology in 2 weeks She was given prescription for steroid taper and doxycycline she is hemodynamically stable and ready for discharge - Time Spent with Patient Total time spent providing and/or coordinating discharge services: - Discharge Medications Prescriptions: Doxycycline 100 mg PO BID #11 capsule Metoprolol [Lopressor] 50 mg PO BID #20 tablet predniSONE [PredniSONE] 20 mg PO DAILY #24 tablet Home Medications: Oxygen 3 l IH AD 07/19/16 [History] raNITIdine HCl [Zantac] 150 mg PO DAILY 11/20/16 [History] Nitroglycerin [Nitrostat] 0.4 mg PO Q5M PRN 06/03/17 [History] Albuterol Sulfate [Ventolin Hfa] 2 puff IH Q4H PRN #1 inh 07/07/17 [Rx] Furosemide [Lasix] 40 mg PO DAILY PRN #30 tablet 07/07/17 [Rx] cloNIDine HCl [Clonidine HCl] 0.3 mg PO QID #90 tablet 07/07/17 [Rx] Budesonide/Formoterol 160/4.5 [Symbicort 160/4.5] 2 puff IH BID 08/06/17 [History] Insulin NPH Hum/Reg Insulin Hm [Novolin 70-30 100 Unit/ml Vial] 0 unit SQ TID PRN 08/18/17 [History] Aspirin Enteric Coated [Aspirin EC] 81 mg PO DAILY tablet. 10/09/17 [Rx] Atorvastatin [Lipitor] 40 mg PO DAILY 01/21/18 [History] Buspirone HCl [Buspar] 10 mg PO TID 01/21/18 [History] Insulin NPH Human Isophane [Novolin N] 20 - 25 unit SQ BID 01/21/18 [History] Ipratropium/Albuterol Neb [Duoneb] 3 ml IH Q4H 01/21/18 [History] amLODIPine [Norvasc] 10 mg PO DAILY 02/15/18 [History] Doxycycline 100 mg PO BID #11 capsule 02/23/18 [Rx] Metoprolol [Lopressor] 50 mg PO BID #20 tablet 02/23/18 [Rx] predniSONE [PredniSONE] 20 mg PO DAILY #24 tablet 02/23/18 [Rx] Allergies/Adverse Reactions: Allergy/AdvReac Type Severity Reaction Status Date / Time NSAIDS (Non-Steroidal Allergy Unknown See Verified 08/06/17 04:34 Anti-Inflamma Comments Penicillins Allergy Unknown Hives Verified 08/06/17 04:34 lisinopril AdvReac Cough Verified 08/06/17 04:34 lorazepam [From Ativan] AdvReac Confusion Verified 08/06/17 04:34 tramadol AdvReac Nausea Verified 08/06/17 04:34 Date of admission: 02/17/18 18:32 Primary care physician: PCP NONE Consults: 02/15/18 23:09 Consult to Nurse Navigator [CONS] Routine Comment: 02/18/18 15:46 Consult to Pulmonology [CONS] Routine Consulting Provider: [facility] Reason for Consult: Severe obstructive disease. Increasing dyspnea with exertion with increasing O2 requirements. Time Notified: 15:48 Call Completed: Yes Discharging clinician: Maria De Jesus Blank Anticipated date of discharge: 02/23/18 - Constitutional Vitals: Temp Pulse Resp BP Pulse Ox 98.3 F 72 16 148/82 99 02/22/18 11:26 02/22/18 11:26 02/22/18 11:26 02/22/18 11:26 02/22/18 11:26 General appearance: Present: A&O X 3 Exam: PHYSICAL EXAMINATION: GENERAL: The patient is an elderly female, ill appearing, NAD, and O 3 HEENT: Head is normocephalic and atraumatic. EOMI, PERRLA NECK: Supple. No carotid bruits. No lymphadenopathy or thyromegaly. LUNGS: Diminished bilaterally throughout, severe limitations of air movement in the setting of severe obstructive disease HEART: Regular rate and rhythm, S1, S2 without murmur, rubs or gallops. ABDOMEN: Soft, nontender, and nondistended. Positive bowel sounds. No hepatosplenomegaly was noted. EXTREMITIES: Without any cyanosis, clubbing, rash, lesions or edema. NEUROLOGIC: Cranial nerves II through XII are grossly intact. PSYCHIATRIC: Appropriate affect, does not appear anxious SKIN: No ulceration or induration present. - Head Head exam: Present: atraumatic, normocephalic - Eye Eye exam: Present: PERRL, conjuntiva pink, sclera anicteric Pupils: Present: PERRL - Neck Neck exam general surgery: Present: supple, trachea midline. Absent: lym phadenopathy - Respiratory Respiratory exam: Present: CTAB. Absent: accessory muscle use, rales, rhonchi, wheezes - Cardiovascular Cardiovascular exam: Present: RRR, +S1, +S2. Absent: diastolic murmur, gallop, rubs, systolic murmur - GI/Abdominal GI/Abdominal exam: Present: normal bowel sounds, soft, no peritoneal signs. Absent: distended, tenderness - Extremities Exam Extremities exam: Present: warm, radial pulses palpable and symmetrical. Absent: calf tenderness, cyanotic, pedal edema - Neurological Exam Neurological exam: Present: CN II-XII intact, oriented X3, no focal deficits. Absent: pronater drift, facial droop, speech deficit - Skin Skin exam: Present: dry, intact - Patient Status Disposition: Home, Self-Care Condition: Fair Functional capacity at discharge: independent ambulation Overall status at discharge: patient is back to baseline - Discharge Instructions Follow Up With: Lee Ann Macias DO [Resident] - 03/02/18 3:00 pm (Please arrive to appointment 30 minutes early to complete paperwork. Please bring photo I.D, insurance card, and any medications you are currently taking. If needing to cancel appointment, office request cancellations be 24 hrs before scheduled appointment. ) Zainab Nelson MD [Partnered Physician] - (An appointment has been requested. The office will contact you at home with an appointment. ) Additional Instructions: Call [facility] [place] to have them deliver Bedside commode #[phone] - Diet and Activity Activity: wear oxygen at all times Diet: advance to your usual diet - VTE Documentation of Mechanical Device: Graduated compression elastic hosiery
--- NOTE | 2018-02-22 14:49 | Internal Med Progress Note ---
Hospitalist Progress Note - Encounter Date of Encounter: 02/22/18 Time of Encounter: 14:44 - Subjective Interval History: Patient was seen and examined earlier this a.m. at bedside. Anticipated possible discharge today however patient did not do well during 6 minute walk test. She was unable to complete the test and her sats dropped to 68% while on oxygen. We will continue to monitor the patient she denies any chest pain -she recovered well after walk test - Exam Vitals: Temp Pulse Resp BP Pulse Ox 98.3 F 72 16 148/82 99 02/22/18 11:26 02/22/18 11:26 02/22/18 11:26 02/22/18 11:26 02/22/18 11:26 Exam: PHYSICAL EXAMINATION: GENERAL: The patient is an elderly female, ill appearing, NAD, and O 3 HEENT: Head is normocephalic and atraumatic. EOMI, PERRLA NECK: Supple. No carotid bruits. No lymphadenopathy or thyromegaly. LUNGS: Diminished bilaterally throughout, severe limitations of air movement in the setting of severe obstructive disease HEART: Regular rate and rhythm, S1, S2 without murmur, rubs or gallops. ABDOMEN: Soft, nontender, and nondistended. Positive bowel sounds. No hepatosplenomegaly was noted. EXTREMITIES: Without any cyanosis, clubbing, rash, lesions or edema. NEUROLOGIC: Cranial nerves II through XII are grossly intact. PSYCHIATRIC: Appropriate affect, does not appear anxious SKIN: No ulceration or induration present. - Assessment and Plan (1) Acute exacerbation of chronic obstructive airways disease Current Visit: No Status: Acute Assessment and Plan: SOB due to COPD exacerbation Lungs are diminished throughout with fine expiratory wheezing Patient dyspneic with exertion She has continued to have a cough with sputum production PLAN: - Aerosols q 4 hr MARBIN for SOB and wheezing - Solu-medrol 60 mg IV q 6 hr - CBCD, BMP in AM - Sputum Gram stain, C+S-pending receipt; Stenotrophomonas Maltophilia infection in 07/08 - She does not appear to have PNA on CXR - Heparin 5000 U SQ BID - Azithromycine 500 po daily - Supplementary O2, titrate as needed to maintain SPO2 greater than 92% - RIP negative 02/20--presented with acute exacerbation of COPD. Chest x-ray negative for pneumonia. Respiratory infection panel negative for viral pathogens. Patient has a known history of severe obstructive airway disease and will require a long steroid taper at discharge. However, due to continued hypoxia with activity she is unsafe for discharge at this time with risk for respiratory failure. Pulmono logy follow-up in consultation; recommendations appreciated. She is having a bronchoscopy today. Follow results. 02/21/2018 Does not feel well this am - did cough up small amount of blood - had poor sleep did not use CPAP encourage patient to use CPAP Azithromycin completed cont steroids placed on doxy per pulmonology She does not appear to have PNA on CXR - Supplementary O2, titrate as needed to maintain SPO2 greater than 92% - RIP negative 02/22/2018 Continue with steroids Solu-Medrol 60 mg every 12 Continue with doxycycline for 7 days Continue with oxygen titrating maintain SPO2 greater than 90% Attempted to complete 6 minute walk test to see if patient is at baseline prior to discharge per pulmonology's recommendation patient was unable to complete test-set this dropped down to 68% on oxygen. We will continue to ambulate patient encouraged patient to use incentive spirometry (2) Diabetes mellitus Current Visit: No Status: Chronic Assessment and Plan: persistent hyperglycemia d/t IV steroids-will attempt to step down steroids high sliding scale Prandial insulin 10 units TIDWM basal coverage increased to 15 units BID DM DIET AC/HS FSBG 02/22/2018 Slowly improving-secondary to IV steroids Continue with high sliding scale coverage as well as prandial insulin 10 units 3 times a day with meals Basal coverage 15 units twice a day Diabetic diet Accu-Cheks before meals at bedtime (3) Hyperlipidemia Current Visit: No Status: Chronic Assessment and Plan: LDL 104, continue statin (4) Hypertension Current Visit: No Status: Chronic Assessment and Plan: controlled at this time Continue antihypertensives at current dose And breakthrough antihypertensives as needed Continue to closely monitor 02/22/2018 Continue with home medications and pressures control this time - Time Spent with Patient Total time spent is greater than 50% in coordination of care (as documented) at patient's floor/unit and/or counseling patient: Internal Medicine: Result - Labs CBC & Chem 7: 02/22/18 05:26 02/22/18 05:26 Labs: Short CBC 02/22/18 Range/Units 05:26 WBC 12.4 H (4.3-11.1) K/mcL Hgb 12.7 (11.5-15.4) g/dL Hct 39.8 (35.3-44.9) % Plt Count 368 (140-400) K/mcL Neutrophils # 10.7 H (1.6-8.9) K/mcL BMP 02/22/18 05:26 Sodium 139 Potassium 3.8 Chloride 97 L Carbon Dioxide 33 H BUN 39 H Creatinine 0.91 Glucose 278 H Calcium 8.4 L - ABG Interpretation ABG results: PT/INR, D-dimer PT 13.0 Seconds (9.4-12.1) H 02/16/18 03:37 - VTE Documentation of Mechanical Device: Graduated compression elastic hosiery Consult Discharge Plan - Plan Additional Instructions: Call [facility] to have them deliver Bedside commode #[phone] Referrals: Lee Ann Macias DO [Resident] - 02/24/18 10:30 am (Please arrive to appointment 30 minutes early to complete paperwork. Please bring photo I.D, insurance card, and any medications you are currently taking. If needing to cancel appointment, office request cancellations be 24 hrs before scheduled appointment. ) Zaniab Nelson MD [Partnered Physician] - (An appointment has been requested. The office will contact you at home with an appointment. 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
[2018-02-23] MEDS: Ipratropium/Albuterol Neb 3 ML IH SCH ×3 (04:18→11:02)
[2018-02-23] MEDS: *HR* Heparin 5,000 UNIT/ML VIAL SQ SCH (05:02)
[2018-02-23] MEDS: *HR* OxyCODONE/APAP 10/325 TABLET PO PRN ×2 (05:02→13:14)
[2018-02-23] MEDS: MethylPREDNISolone 40 MG/ML VIAL IVP SCH (05:02)
[2018-02-23] MEDS: Ondansetron 4 MG/2 ML VIAL IVP PRN ×2 (06:55→13:02)
[2018-02-23] MEDS: Budesonide/Formoterol 160/4.5 1 PUFF INH IH SCH (07:51)
[2018-02-23] MEDS: amLODIPine 5 MG TABLET PO SCH (08:03)
[2018-02-23] MEDS: cloNIDine HCl 0.1 MG TABLET PO SCH ×2 (08:03→13:01)
[2018-02-23] MEDS: Famotidine 20 MG TABLET PO SCH (08:03)
[2018-02-23] MEDS: Doxycycline 100 MG CAPSULE PO SCH (08:03)
[2018-02-23] MEDS: Nystatin SUSP 5 ML UD.LIQ PO SCH ×2 (08:04→13:01)
[2018-02-23] MEDS: Furosemide 20 MG/2 ML VIAL IVP SCH (08:04)
[2018-02-23] MEDS: Aspirin Enteric Coated 81 MG Tablet PO SCH (08:04)
[2018-02-23] MEDS: Insulin LISPRO 300 UNITS/3 ML VIAL SQ SCH ×4 (08:05→11:18)
[2018-02-23] MEDS: Insulin DETEMIR 100 UNIT/ML X5UNITS SQ SCH (08:09)
[2018-02-23 08:21] LABS: Hematocrit 37.6 % (35.3-44.9); Hemoglobin 12.4 g/dL (11.5-15.4); Mean Corpuscular Hemoglobin 28.6 pg (28.0-33.3); Mean Corpuscular Volume 86.8 fL (83.0-100.0); Mean Platelet Volume 10.7 fL (9.4-12.4); Platelet Count 312 K/mcL (140-400); Red Blood Count 4.33 M/mcL (3.82-4.97); Red Cell Distribution Width 15.1 % (11.5-14.5)
[2018-02-23 08:40] LABS: BUN/Creatinine Ratio 58 (6-26); Blood Urea Nitrogen 39 mg/dL (8-23); Calcium 8.5 mg/dL (8.6-10.3); Carbon Dioxide 35 mEq/L (23-29); Chloride 97 mEq/L (98-107); Glucose 329 mg/dL (70-105); Osmolality,Calculated 304 (280-300); Potassium 4.4 mEq/L (3.5-5.1); Sodium 136 mEq/L (136-145); eGFR For Non-African Americans > 60 (> 60)
[2018-02-23 09:50] LABS: Lymphocytes # 1.1 K/mcL (0.6-4.6); Monocytes # 0.3 K/mcL (0.0-1.3); Platelet Estimate Normal (Normal)
[2018-02-23 09:53] LABS: Polychromasia 1+ (Not Present)
[2018-02-23 11:05] VITALS: BP 126/78
== END 2018-02-23 15:37 | disposition home or self-care (01) | DRG 140 ==
LOC: EMEROOARM 21:00 → 3BNU 21:00
PROVIDERS: ADMIT Internal Medicine Nephrology; ATTEND Internal Medicine Nephrology
PROC: ENDOBRF (2018-02-20 17:30)

== ENCOUNTER 2018-02-24 07:16 | Inpatient (IN) ==
[2018-02-24] MEDS ORDERED: Ondansetron 4 MG/2 ML VIAL IVP ONE (07:33)
[2018-02-24] MEDS ORDERED: Mag Hydrox/Al Hydrox/Simeth 30 ML UDC PO STA (07:47)
[2018-02-24] MEDS ORDERED: 0.9 % Sodium Chloride 500 ML IVC ONE (07:48)
[2018-02-24] MEDS ORDERED: Ondansetron ODT 4 MG TAB.RAPDIS SL ONE (07:53)
--- NOTE | 2018-02-24 08:01 | Emergency Department Note ---
Disposition Clinical Impression: Abdominal pain, Nausea and vomiting, Leukocytosis, Hyperglycemia Disposition: Admitted As Inpatient Condition: Fair General Adult HPI - General Chief complaint: ED Nausea/Vomiting/Diarrhea Stated complaint: Vomiting,Ulcer Time Seen by Provider: 02/24/18 07:31 Source: patient Limitations: no limitations Nursing Notes Reviewed: Yes Vital Signs Reviewed: Yes - History of Present Illness Pain Scale: 9 - Related Data Home Medications Medication Instructions Recorded Confirmed RX: Oxygen 3 l IH AD 07/19/16 02/24/18 RX: Budesonide/Formoterol 160/4.5 2 puff IH BID 08/06/17 02/16/18 [Symbicort 160/4.5] RX: Atorvastatin [Lipitor] 40 mg PO DAILY 01/21/18 02/24/18 RX: Buspirone HCl [Buspar] 10 mg PO TID 01/21/18 02/24/18 RX: Insulin NPH Human Isophane 20 unit SQ BID 01/21/18 02/24/18 [Novolin N] RX: Ipratropium/Albuterol Neb 3 ml IH Q3-6H PRN 01/21/18 02/24/18 [Duoneb] RX: amLODIPine [Norvasc] 10 mg PO DAILY 02/15/18 02/24/18 Losartan Potassium 25 mg PO DAILY 02/24/18 02/24/18 Metoprolol Tartrate 50 mg PO BID 02/24/18 02/24/18 RX: Albuterol Sulfate [Ventolin 2 puff IH Q3-6H PRN 02/24/18 02/24/18 Hfa] RX: cloNIDine HCl [Clonidine HCl] 0.3 mg PO TID 02/24/18 02/24/18 raNITIdine HCl [Zantac] 150 mg PO DAILY PRN 02/24/18 02/24/18 Previous Rx's Medication Instructions Recorded RX: Furosemide [Lasix] 40 mg PO DAILY PRN #30 tablet 07/07/17 RX: Aspirin Enteric Coated 81 mg PO DAILY tablet. 10/09/17 [Aspirin EC] RX: Doxycycline 100 mg PO BID #11 capsule 02/23/18 RX: predniSONE [PredniSONE] 20 mg PO DAILY #24 tablet 02/23/18 Allergies Allergy/AdvReac Type Severity Reaction Status Date / Time NSAIDS (Non-Steroidal Allergy Unknown See Verified 02/24/18 12:58 Anti-Inflamma Comments Penicillins Allergy Unknown Hives Verified 02/24/18 12:58 lisinopril AdvReac Cough Verified 02/24/18 12:58 lorazepam [From Ativan] AdvReac Confusion Verified 02/24/18 12:58 tramadol AdvReac Nausea, Verified 02/24/18 12:58 VOMITING Past Medical History - Past Medical History Medical history: Reports: arthritis, asthma, COPD, diabetes, GERD, hyperlipidemia, hypertension, renal disease, other Surgical history: Reports: appendectomy, cholecystectomy, knee replacement, ureteral stent Psychiatric history: Reports: anxiety, depression 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 PICKER history: 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: ectopic , bilateral 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, other - Social History Smoking Status: Never smoker Smokeless Tobacco Status: No Alcohol use: Reports: none Drug use: Reports: none Physical Exam - General Limitations: no limitations General appearance: alert, in no apparent distress Course Vital Signs Temperature 98.5 F 02/24/18 07:21 Pulse Rate 123 02/24/18 07:21 Respiratory Rate 20 02/24/18 07:21 Blood Pressure 175/122 02/24/18 07:21 O2 Sat by Pulse Oximetry 91 02/24/18 07:21 Temperature 98.5 F 02/24/18 07:30 Pulse Rate 126 02/24/18 10:52 Respiratory Rate 19 02/24/18 15:34 Blood Pressure 161/107 02/24/18 10:52 O2 Sat by Pulse Oximetry 95 02/24/18 15:34 Oxygen Delivery Oxygen Delivery Nasal Cannula Medical Decision Making - [facility] Narrative Medical decision making narrative: Chest X-Ray 02/24/18 07:35 IMPRESSION: Low lung volumes. No acute cardiopulmonary disease. D/ / Darnlel Cabrera MD / Darnell Cabrera MD Interpreting Provider: Darnell Cabrera MD 0954 hrs.: Patient was a difficult IV stick so were going to see if we can get vascular access team to place a midline in her. With her labs she will need devora dmission. Concern for abdominal etiology of her elevated white count and her symptoms. CAT scan is ordered. 1117 hrs.: Waiting on urinalysis and CT scan read. And then she will most likely need admission. - Lab Data Result diagrams: 02/24/18 08:27 02/24/18 08:27 Lab Results 02/24/18 02/24/18 02/24/18 Range/Units 08:27 08:27 09:55 WBC 48.2 H* D (4.3-11.1) K/mcL RBC 5.20 H (3.82-4.97) M/mcL Hgb 14.5 D (11.5-15.4) g/dL Hct 45.5 H (35.3-44.9) % MCV 87.5 (83.0-100.0) fL MCH 27.9 L (28.0-33.3) pg MCHC 31.9 (31.6-35.5) g/dL RDW 15.3 H (11.5-14.5) % Plt Count 431 H (140-400) K/mcL MPV 10.5 (9.4-12.4) fL Seg Neutrophils % 90.0 % Lymphocytes % 4.0 % Monocytes % 6.0 % Neutrophils # 43.4 H (1.6-8.9) K/mcL Lymphocytes # 1.9 (0.6-4.6) K/mcL Monocytes # 2.9 H (0.0-1.3) K/mcL Nucleated RBCs/100 WBC 0.1 H (0) /100 WBC Platelet Estimate Normal (Normal) Sodium 137 (136-145) mEq/L Potassium 4.1 (3.5-5.1) mEq/L Chloride 98 (98-107) mEq/L Carbon Dioxide 29 (23-29) mEq/L BUN 37 H (8-23) mg/dL Creatinine 0.65 (0.60-1.20) mg/dL Est GFR ( Amer) > 60 (> 60) Est GFR (Non-Af Amer) > 60 (> 60) BUN/Creatinine Ratio 57 H (6-26) Glucose 412 H (70-105) mg/dL Calculated Osmolality 310 H (280-300) Lactic Acid 3.1 H (0.5-2.2) mmol/L Calcium 8.0 L (8.6-10.3) mg/dL Total Bilirubin 0.4 (0.3-1.0) mg/dL Direct Bilirubin 0.1 (0.0-0.2) mg/dL Indirect Bilirubin 0.3 (0.0-1.2) mg/dL AST 19 (13-39) Units/L ALT 33 (7-52) Units/L Alkaline Phosphatase 110 H (34-104) Units/L Troponin I < 0.03 (< 0.04) ng/mL Serum Total Protein 5.8 L (6.4-8.9) g/dL Albumin 3.7 (3.5-5.7) g/dL Globulin 2.1 L (2.4-3.5) g/dL Albumin/Globulin Ratio 1.8 (1.1-2.2) Lipase 21 (11-82) Units/L Urine Color (Yellow) Urine Clarity (Clear) Urine pH (5.0-8.0) pH Units Ur Specific [place] (1.010-1.025) Urine Protein (Neg-Trace) mg/dL Urine Glucose (UA) (Normal) mg/dL Urine Ketones (Negative) mg/dL Urine Blood (Negative) Urine Nitrite (Negative) Urine Bilirubin (Negative) Urine Urobilinogen (Normal) mg/dL Ur Leukocyte Esterase (Negative) Urine Microscopic RBC (0-3) per hpf Urine Microscopic WBC (0-3) per hpf Ur Transition Epith Cell (None-Few) per hpf Urine Bacteria (None-Few) per hpf Hyaline Casts (None-Few) per lpf Ur Culture Indicated? (NO) 02/24/18 Range/Units 12:07 WBC (4.3-11.1) K/mcL RBC (3.82-4.97) M/mcL Hgb (11.5-15.4) g/dL Hct (35.3-44.9) % MCV (83.0-100.0) fL MCH (28.0-33.3) pg MCHC (31.6-35.5) g/dL RDW (11.5-14.5) % Plt Count (140-400) K/mcL MPV (9.4-12.4) fL Seg Neutrophils % % Lymphocytes % % Monocytes % % Neutrophils # (1.6-8.9) K/mcL Lymphocytes # (0.6-4.6) K/mcL Monocytes # (0.0-1.3) K/mcL Nucleated RBCs/100 WBC (0) /100 WBC Platelet Estimate (Normal) Sodium (136-145) mEq/L Potassium (3.5-5.1) mEq/L Chloride (98-107) mEq/L Carbon Dioxide (23-29) mEq/L BUN (8-23) mg/dL Creatinine (0.60-1.20) mg/dL Est GFR ( Amer) (> 60) Est GFR (Non-Af Amer) (> 60) BUN/Creatinine Ratio (6-26) Glucose (70-105) mg/dL Calculated Osmolality (280-300) Lactic Acid (0.5-2.2) mmol/L Calcium (8.6-10.3) mg/dL Total Bilirubin (0.3-1.0) mg/dL Direct Bilirubin (0.0-0.2) mg/dL Indirect Bilirubin (0.0-1.2) mg/dL AST (13-39) Units/L ALT (7-52) Units/L Alkaline Phosphatase (34-104) Units/L Troponin I (< 0.04) ng/mL Serum Total Protein (6.4-8.9) g/dL Albumin (3.5-5.7) g/dL Globulin (2.4-3.5) g/dL Albumin/Globulin Ratio (1.1-2.2) Lipase (11-82) Units/L Urine Color Yellow (Yellow) Urine Clarity Clear (Clear) Urine pH 6.0 (5.0-8.0) pH Units Ur Specific [place] > 1.030 H (1.010-1.025) Urine Protein 30 H (Neg-Trace) mg/dL Urine Glucose (UA) >=1000 H (Normal) mg/dL Urine Ketones Negative (Negative) mg/dL Urine Blood Negative (Negative) Urine Nitrite Negative (Negative) Urine Bilirubin Negative (Negative) Urine Urobilinogen Normal (Normal) mg/dL Ur Leukocyte Esterase Negative (Negative) Urine Microscopic RBC 0-3 (0-3) per hpf Urine Microscopic WBC 0-3 (0-3) per hpf Ur Transition Epith Cell Many H (None-Few) per hpf Urine Bacteria None Seen (None-Few) per hpf Hyaline Casts None Seen (None-Few) per lpf Ur Culture Indicated? NO (NO) Attestation Statement - Attestation Attestation: This documentation is done with the assistance of Greg christian. Despite efforts made to ensure accuracy, there may be inaccuracies in process treater or spelling and typographical errors. I examined this patient and my medical decision-making was reviewed with the Resident Physician. I agree with the documented findings, disposition and treatment plan as described except to the extent set forth below. Patient seen and evaluated by Dr. Silva and myself, I agree with his evaluation and management plan, I supervised the care the patient's stay. Patient presents today with nausea and vomiting. She thinks that this is due to her being on oral steroids, she was just released from the hospital COPD she says steroids always "tear my stomach". She denies any true abdominal pain nonsurgical abdomen here. She has had one episode of diarrhea in the room. Were going to try to make her more comfortable, check labs and reassess. She is in agreement this plan.
--- NOTE | 2018-02-24 08:25 | Emergency Department Note ---
Disposition Clinical Impression: Hyperglycemia Abdominal pain Qualifiers: Abdominal location: epigastric Qualified Code(s): R10.13 - Epigastric pain Nausea and vomiting Qualifiers: Vomiting type: unspecified Vomiting Intractability: non-intractable Qualified Code(s): R11.2 - Nausea with vomiting, unspecified Leukocytosis Qualifiers: Leukocytosis type: unspecified Qualified Code(s): D72.829 - Elevated white blood cell count, unspecified Disposition: Admitted As Inpatient Condition: Fair Time of Disposition: 15:36 General Adult HPI - General Chief complaint: ED Nausea/Vomiting/Diarrhea Stated complaint: Vomiting,Ulcer Time Seen by Provider: 02/24/18 07:31 Source: patient Mode of arrival: ambulatory Limitations: no limitations Nursing Notes Reviewed: Yes Vital Signs Reviewed: Yes - History of Present Illness HPI Narrative: Patient is a 58-year-old female past medical history of CAD, COPD, and PUD recently discharged from the hospital 3 days ago which she was treated for COPD exacerbation. Patient states that 4:00 AM this morning she began having nausea which was shortly followed by multiple episodes of nonbloody nonbilious emesis as well as epigastric abdominal pain that is radiating to her back. States that this pain feels similar to exacerbation of pain with her ulcer. Denies any fevers, chest pain, dyspnea, dysuria or diarrhea. Patient had a normal bowel movement this morning. Pain Scale: 9 - Related Data Home Medications Medication Instructions Recorded Confirmed Oxygen 3 l IH AD 07/19/16 02/24/18 Budesonide/Formoterol 160/4.5 2 puff IH BID 08/06/17 02/16/18 [Symbicort 160/4.5] Atorvastatin [Lipitor] 40 mg PO DAILY 01/21/18 02/24/18 Buspirone HCl [Buspar] 10 mg PO TID 01/21/18 02/24/18 Insulin NPH Human Isophane 20 unit SQ BID 01/21/18 02/24/18 [Novolin N] Ipratropium/Albuterol Neb [Duoneb] 3 ml IH Q3-6H PRN 01/21/18 02/24/18 amLODIPine [Norvasc] 10 mg PO DAILY 02/15/18 02/24/18 Albuterol Sulfate [Ventolin Hfa] 2 puff IH Q3-6H PRN 02/24/18 02/24/18 Losartan Potassium 25 mg PO DAILY 02/24/18 02/24/18 Metoprolol Tartrate 50 mg PO BID 02/24/18 02/24/18 cloNIDine HCl [Clonidine HCl] 0.3 mg PO TID 02/24/18 02/24/18 raNITIdine HCl [Zantac] 150 mg PO DAILY PRN 02/24/18 02/24/18 Previous Rx's Medication Instructions Recorded Furosemide [Lasix] 40 mg PO DAILY PRN #30 tablet 07/07/17 Aspirin Enteric Coated [Aspirin EC] 81 mg PO DAILY tablet. 10/09/17 Doxycycline 100 mg PO BID #11 capsule 02/23/18 predniSONE [PredniSONE] 20 mg PO DAILY #24 tablet 02/23/18 Allergies Allergy/AdvReac Type Severity Reaction Status Date / Time NSAIDS (Non-Steroidal Allergy Unknown See Verified 02/24/18 12:58 Anti-Inflamma Comments Penicillins Allergy Unknown Hives Verified 02/24/18 12:58 lisinopril AdvReac Cough Verified 02/24/18 12:58 lorazepam [From Ativan] AdvReac Confusion Verified 02/24/18 12:58 tramadol AdvReac Nausea, Verified 02/24/18 12:58 VOMITING All systems ED: reviewed and negative except as stated. Review of Systems: As Per HPI Constitutional: Denies: fever, chills Cardiovascular: Denies: chest pain, palpitations, dyspnea on exertion Respiratory: Denies: cough, dyspnea, wheezes Gastrointestinal: Reports: abdominal pain, nausea, vomiting. Denies: diarrhea, constipation, hematemesis, melena, hematochezia Genitourinary: Denies: urgency, dysuria Musculoskeletal: Reports: back pain Integumentary: Denies: rash Past Medical History - Past Medical History Attestation: Yes The following information was validated with the patient. Medical history: Reports: arthritis, asthma, COPD, diabetes, GERD, hyperlipidemia, hypertension, renal disease, other Surgical history: Reports: appendectomy, cholecystectomy, knee replacement, ureteral stent Psychiatric history: Reports: anxiety, depression CORE EXTRUDER history: Reports: ectopic , bilateral 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, other - Social History Smoking Status: Never smoker Smokeless Tobacco Status: No Alcohol use: Reports: none Drug use: Reports: none Physical Exam - General Limitations: no limitations General appearance: alert, in no apparent distress - Head Head exam: atraumatic, normocephalic, normal inspection - Eye Eye exam: Present: normal appearance, PERRL, EOMI - ENT ENT exam: normal exam, normal oropharynx, mucous membranes dry - Chest Chest inspection: Present: normal inspection, symmetric chest wall rise - Respiratory Respiratory exam: Present: normal lung sounds bilaterally. Absent: respiratory distress, wheezes - Cardiovascular Cardiovascular exam: Present: normal rhythm, tachycardia, +S1, +S2 - Abdominal Exam Abdominal exam: Present: tenderness, normal bowel sounds. Absent: distention, guarding, rebound, rigidity Abdominal tenderness: Present: epigastrium, mild - Extremities Exam Extremities exam: Present: normal inspection, full ROM. Absent: tenderness, pedal edema - Back Exam Back exam: Present: normal inspection, full ROM. Absent: tenderness - Neurological Exam Neurological exam: Present: alert, oriented X3 - Psychiatric Psychiatric exam: Present: normal affect, normal mood - Skin Skin exam: Present: warm, dry, intact, normal color Course Course Narrative: I reviewed records patient was recently discharged from hospital after treatment for an acute exacerbation of COPD. Patient did state that she does tend to have stomach upset with prednisone which she was given at discharge. She denies any recent sick contacts. 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 Patient did have a CT of the abdomen and pelvis in August 2017 which revealed a 3.4 cm AAA. She also had stress testing performed in June 2017 which resulted nonischemic. Last time is to evaluate the patient for her epigastric pain. She has no peritoneal signs. We will treat her symptomatically and order labs including evaluation of cardiac and abdominal. - Reevaluation(s) Reevaluation #1: The setting of the white count in the 40s as well as her tachycardia concern at this time is for sepsis with unknown source. Patient was given IV fluids as well the addition of lactate order. Patient will also be started on ceftriaxone. Time: 09:07 Reevaluation #2: His labs are sent give her leukocytosis in the 40s. Saying her vital signs patient was given 1 L fluid bolus. Later to recheck bile signs upon initiation of pain medicine and antiemetic. Patient's CT scan of the abdomen and pelvis was unremarkable for an obvious source of infection. Discussed patient's case with the hospitalist news operations manager. Discussed concerns for sepsis with unknown source at this time patient is given IV antibiotics as well as 1 L bolus of fluids. Throughout the patient's stay in the emergency department is difficult to obtain IV access. Peripheral IVs were attempted with eventually failed. Patient required midline placement wished to delay her getting her IV antibiotics as well as her initial fluid bolus. Discussed with hospitalist continuing her sepsis bolus on the floor as well as recheck of lactate. Dr. Arellano agreed to accept the patient. Time: 15:35 Vital Signs Temperature 98.5 F 02/24/18 07:21 Pulse Rate 123 02/24/18 07:21 Respiratory Rate 20 02/24/18 07:21 Blood Pressure 175/122 02/24/18 07:21 O2 Sat by Pulse Oximetry 91 02/24/18 07:21 Temperature 98.5 F 02/24/18 07:30 Pulse Rate 126 02/24/18 10:52 Respiratory Rate 22 02/24/18 10:52 Blood Pressure 161/107 02/24/18 10:52 O2 Sat by Pulse Oximetry 94 02/24/18 10:52 Oxygen Delivery Oxygen Delivery Nasal Cannula Medical Decision Making - Medical Records Medical records reviewed: Yes I reviewed the patient's medical records. - Lab Data Lab results reviewed: Yes I reviewed the patient's lab results. Result diagrams: 02/24/18 08:27 02/24/18 08:27 Lab Results 02/24/18 02/24/18 02/24/18 Range/Units 08:27 08:27 09:55 WBC 48.2 H* D (4.3-11.1) K/mcL RBC 5.20 H (3.82-4.97) M/mcL Hgb 14.5 D (11.5-15.4) g/dL Hct 45.5 H (35.3-44.9) % MCV 87.5 (83.0-100.0) fL MCH 27.9 L (28.0-33.3) pg MCHC 31.9 (31.6-35.5) g/dL RDW 15.3 H (11.5-14.5) % Plt Count 431 H (140-400) K/mcL MPV 10.5 (9.4-12.4) fL Seg Neutrophils % 90.0 % Lymphocytes % 4.0 % Monocytes % 6.0 % Neutrophils # 43.4 H (1.6-8.9) K/mcL Lymphocytes # 1.9 (0.6-4.6) K/mcL Monocytes # 2.9 H (0.0-1.3) K/mcL Nucleated RBCs/100 WBC 0.1 H (0) /100 WBC Platelet Estimate Normal (Normal) Sodium 137 (136-145) mEq/L Potassium 4.1 (3.5-5.1) mEq/L Chloride 98 (98-107) mEq/L Carbon Dioxide 29 (23-29) mEq/L BUN 37 H (8-23) mg/dL Creatinine 0.65 (0.60-1.20) mg/dL Est GFR ( Amer) > 60 (> 60) Est GFR (Non-Af Amer) > 60 (> 60) BUN/Creatinine Ratio 57 H (6-26) Glucose 412 H (70-105) mg/dL Calculated Osmolality 310 H (280-300) Lactic Acid 3.1 H (0.5-2.2) mmol/L Calcium 8.0 L (8.6-10.3) mg/dL Total Bilirubin 0.4 (0.3-1.0) mg/dL Direct Bilirubin 0.1 (0.0-0.2) mg/dL Indirect Bilirubin 0.3 (0.0-1.2) mg/dL AST 19 (13-39) Units/L ALT 33 (7-52) Units/L Alkaline Phosphatase 110 H (34-104) Units/L Troponin I < 0.03 (< 0.04) ng/mL Serum Total Protein 5.8 L (6.4-8.9) g/dL Albumin 3.7 (3.5-5.7) g/dL Globulin 2.1 L (2.4-3.5) g/dL Albumin/Globulin Ratio 1.8 (1.1-2.2) Lipase 21 (11-82) Units/L Urine Color (Yellow) Urine Clarity (Clear) Urine pH (5.0-8.0) pH Units Ur Specific [place] (1.010-1.025) Urine Protein (Neg-Trace) mg/dL Urine Glucose (UA) (Normal) mg/dL Urine Ketones (Negative) mg/dL Urine Blood (Negative) Urine Nitrite (Negative) Urine Bilirubin (Negative) Urine Urobilinogen (Normal) mg/dL Ur Leukocyte Esterase (Negative) Urine Microscopic RBC (0-3) per hpf Urine Microscopic WBC (0-3) per hpf Ur Transition Epith Cell (None-Few) per hpf Urine Bacteria (None-Few) per hpf Hyaline Casts (None-Few) per lpf Ur Culture Indicated? (NO) 02/24/18 Range/Units 12:07 WBC (4.3-11.1) K/mcL RBC (3.82-4.97) M/mcL Hgb (11.5-15.4) g/dL Hct (35.3-44.9) % MCV (83.0-100.0) fL MCH (28.0-33.3) pg MCHC (31.6-35.5) g/dL RDW (11.5-14.5) % Plt Count (140-400) K/mcL MPV (9.4-12.4) fL Seg Neutrophils % % Lymphocytes % % Monocytes % % Neutrophils # (1.6-8.9) K/mcL Lymphocytes # (0.6-4.6) K/mcL Monocytes # (0.0-1.3) K/mcL Nucleated RBCs/100 WBC (0) /100 WBC Platelet Estimate (Normal) Sodium (136-145) mEq/L Potassium (3.5-5.1) mEq/L Chloride (98-107) mEq/L Carbon Dioxide (23-29) mEq/L BUN (8-23) mg/dL Creatinine (0.60-1.20) mg/dL Est GFR ( Amer) (> 60) Est GFR (Non-Af Amer) (> 60) BUN/Creatinine Ratio (6-26) Glucose (70-105) mg/dL Calculated Osmolality (280-300) Lactic Acid (0.5-2.2) mmol/L Calcium (8.6-10.3) mg/dL Total Bilirubin (0.3-1.0) mg/dL Direct Bilirubin (0.0-0.2) mg/dL Indirect Bilirubin (0.0-1.2) mg/dL AST (13-39) Units/L ALT (7-52) Units/L Alkaline Phosphatase (34-104) Units/L Troponin I (< 0.04) ng/mL Serum Total Protein (6.4-8.9) g/dL Albumin (3.5-5.7) g/dL Globulin (2.4-3.5) g/dL Albumin/Globulin Ratio (1.1-2.2) Lipase (11-82) Units/L Urine Color Yellow (Yellow) Urine Clarity Clear (Clear) Urine pH 6.0 (5.0-8.0) pH Units Ur Specific [place] > 1.030 H (1.010-1.025) Urine Protein 30 H (Neg-Trace) mg/dL Urine Glucose (UA) >=1000 H (Normal) mg/dL Urine Ketones Negative (Negative) mg/dL Urine Blood Negative (Negative) Urine Nitrite Negative (Negative) Urine Bilirubin Negative (Negative) Urine Urobilinogen Normal (Normal) mg/dL Ur Leukocyte Esterase Negative (Negative) Urine Microscopic RBC 0-3 (0-3) per hpf Urine Microscopic WBC 0-3 (0-3) per hpf Ur Transition Epith Cell Many H (None-Few) per hpf Urine Bacteria None Seen (None-Few) per hpf Hyaline Casts None Seen (None-Few) per lpf Ur Culture Indicated? NO (NO) - Radiology Data Radiology results reviewed: Yes I reviewed the patient's radiology results. Chest X-Ray 02/24/18 07:35 IMPRESSION: Low lung volumes. No acute cardiopulmonary disease. D/ / Darnell Cabrera MD / Darnell Cabrera MD Interpreting Provider: Darnell Cabrera MD Abdomen/Pelvis CT 02/24/18 09:04 IMPRESSION: No acute bowel abnormality. Specifically, no focal CT abnormality of the stomach. Mild diffuse hepatic steatosis. Stable infrarenal abdominal aortic aneurysm measuring 3.2 cm in diameter. Stable right common iliac artery aneurysm measuring 2.6 cm in diameter. Moderate atherosclerotic disease. Please see follow-up recommendations below. Stable benign left adrenal adenoma measuring 8 mm. RECOMMENDATIONS: 3.2 cm AAA Recommend follow-up every 3 years. Reference: J Vasc Surg 2009 Oct;50(4 Suppl):S2-49. D/ / 02/24/2018 12:12:48 Kirit Chairez MD / дмитрий Interpreting Provider: Kirit Chairez MD - EKG Data EKG #1 EKG attestation: Yes I reviewed and interpreted this EKG. EKG results narrative: EKG done at 9:18 shows sinus tachycardia rate of 118. Normal axis. Intervals within normal limits. No signs of ST elevation, ST depression or Q waves presen t.
[2018-02-24] MEDS ORDERED: *HR* FentaNYL (PF) 100 MCG/2 ML VIAL IVP ONE (08:41)
[2018-02-24 08:45] LABS: Hematocrit 45.5 % (35.3-44.9); Hemoglobin 14.5 g/dL (11.5-15.4); Mean Corpuscular HGB Conc 31.9 g/dL (31.6-35.5); Mean Corpuscular Hemoglobin 27.9 pg (28.0-33.3); Mean Corpuscular Volume 87.5 fL (83.0-100.0); Mean Platelet Volume 10.5 fL (9.4-12.4); Nucleated Red Blood Cells 0.1 /100 WBC (0); Platelet Count 431 K/mcL (140-400); Red Cell Distribution Width 15.3 % (11.5-14.5)
[2018-02-24 09:04] LABS: Troponin I < 0.03 ng/mL (< 0.04)
[2018-02-24] MEDS ORDERED: Isovue-370 500 ML INFUS..BTL IV ONE (09:04)
[2018-02-24 09:05] LABS: Alanine Aminotransferase 33 Units/L (7-52); Albumin 3.7 g/dL (3.5-5.7); Albumin/Globulin Ratio 1.8 (1.1-2.2); Alkaline Phosphatase 110 Units/L (34-104); Aspartate Amino Transferase 19 Units/L (13-39); BUN/Creatinine Ratio 57 (6-26); Bilirubin,Direct 0.1 mg/dL (0.0-0.2); Bilirubin,Indirect 0.3 mg/dL (0.0-1.2); Bilirubin,Total 0.4 mg/dL (0.3-1.0); Blood Urea Nitrogen 37 mg/dL (8-23); Carbon Dioxide 29 mEq/L (23-29); Chloride 98 mEq/L (98-107); Globulin 2.1 g/dL (2.4-3.5); Glucose 412 mg/dL (70-105); Lipase 21 Units/L (11-82); Osmolality,Calculated 310 (280-300); Potassium 4.1 mEq/L (3.5-5.1); Sodium 137 mEq/L (136-145); Total Protein 5.8 g/dL (6.4-8.9); eGFR For Non-African Americans > 60 (> 60)
[2018-02-24] MEDS ORDERED: cefTRIAXone 1,000 MG in Water for inj. (sterile) 20 ML 10 ML IVP ONE (09:06)
[2018-02-24 09:20] LABS: Lymphocytes # 1.9 K/mcL (0.6-4.6); Monocytes # 2.9 K/mcL (0.0-1.3); Neutrophils # 43.4 K/mcL (1.6-8.9); Platelet Estimate Normal (Normal)
[2018-02-24] MEDS ORDERED: *HR* Promethazine 25 MG/ML VIAL IVP ONE (10:41)
[2018-02-24] MEDS ORDERED: *HR* HYDROmorphone (PF) 1 MG/ML SYRINGE IVP ONE (10:50)
[2018-02-24 12:18] LABS: Bilirubin,Urine Negative (Negative); Blood,Urine Negative (Negative); Clarity,Urine Clear (Clear); Color,Urine Yellow (Yellow); Glucose,Urine (UA) >=1000 mg/dL (Normal); Ketones,Urine Negative (Negative); Leukocyte Esterase,Urine Negative (Negative); Nitrite,Urine Negative (Negative); Protein,Urine 30 mg/dL (Neg-Trace); Specific Gravity,Urine > 1.030 (1.010-1.025); Urobilinogen,Urine Normal (Normal)
[2018-02-24 12:31] LABS: Bacteria,Urine None Seen per hpf (None-Few); Hyaline Casts,Urine None Seen per lpf (None-Few); RBC,Urine 0-3 per hpf (0-3); WBC,Urine 0-3 per hpf (0-3)
[2018-02-24 12:52] LABS: Transitional Epi Cells,Urine Many per hpf (None-Few)
[2018-02-24] MEDS ORDERED: 0.9 % Sodium Chloride 1,000 ML IVC SCH (14:45)
[2018-02-24] MEDS ORDERED: Naloxone 0.4 MG/ML INJ IVP PRN (14:45)
[2018-02-24] MEDS ORDERED: Pantoprazole 40 MG VIAL IVP ONE (14:50)
[2018-02-24] MEDS ORDERED: Dextrose Gel 15 GM/37.5 ML TUBE PO PRN ×2 (14:56)
[2018-02-24] MEDS ORDERED: *HR* Dextrose 50 % in Water (Syg) 50 ML SYRINGE IVP PRN (14:56)
[2018-02-24] MEDS ORDERED: D5% in Water 1,000 ML IVC PRN (14:56)
[2018-02-24] MEDS ORDERED: Ipratropium/Albuterol Neb 3 ML IH PRN (14:57)
--- NOTE | 2018-02-24 15:03 | Internal Med History&Physical ---
Date of Encounter: 02/24/18 Time of Encounter: 13:00 Internal Medicine - H&P: HPI Chief complaint: Epigastric pain, nausea, vomiting Admitted From: Home Plans for Post Hospital Care: Home History of present illness: Ms. Ren is a 58 year old female present to ER for epigastric pain, nausea, and vomiting. Past medical history is significant for peptic ulcer disease, COPD, diabetes, hypertension, AAA Patient was recently discharged the from hospital for COPD exacerbation. Patient was prescribed by mouth prednisone taper down dose. Patient had a sudden onset abdominal pain, located on epigastric area, radiated to the back, started the from this morning 3 AM. Patient has nausea and vomited many times. The vomiting are stomach content, no blood or coffee ground emesis. Patient has similar problem before with steroids caused peptic ulcer disease and feel like symptoms is similar with previous disease. In the emergency room, CT abdomen with IV contrast has been done, which is unremarkable, specifically, no aortic aneurysm dissection or pancreatitis identified. Lipase is WNL. Troponin negative, EKG unremarkable. Patient was given symptomatic treatment and admitted for further management. Patient said she has history of H. pylori infection, for which she has finished the treatment course. 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 Psychiatric history: anxiety, depression - Past Surgical History Surgical History: appendectomy, cholecystectomy, knee replacement, ureteral stent Additional surgical history: renal artery stent - Social History Smoking Status: Never smoker Smokeless Tobacco Status: No Alcohol use: none Drug use: none - Family History Father Family Member Ethnicity: Non- Living Status: Hx Family Cardiac Disorders: Yes Hx Family Respiratory Disorders: No Hx Family Cancer: No Hx Family GI Disorders: No Hx Family Endocrine Disorder: No Hx Family Neuromuscular Disorders: No Hx Family Neurologic Disorders: No Hx Family HEENT Disorders: No Hx Family Autoimmune Disorders: No Mother Adopted: No Family Member Ethnicity: Non- Living Status: Still Living Hx Family Cardiac Disorders: No Hx Family Respiratory Disorders: No Hx Family Cancer: No Hx Family GI Disorders: No Hx Family Endocrine Disorder: Yes (DM) Hx Family Neuromuscular Disorders: No Hx Family Neurologic Disorders: No Hx Family HEENT Disorders: No Hx Family Autoimmune Disorders: Yes (Arthritis) Internal Medicine - H&P: Meds Oxygen 3 l IH AD 07/19/16 [History] Furosemide [Lasix] 40 mg PO DAILY PRN #30 tablet 07/07/17 [Rx] Budesonide/Formoterol 160/4.5 [Symbicort 160/4.5] 2 puff IH BID 08/06/17 [History] Aspirin Enteric Coated [Aspirin EC] 81 mg PO DAILY tablet. 10/09/17 [Rx] Atorvastatin [Lipitor] 40 mg PO DAILY 01/21/18 [History] Buspirone HCl [Buspar] 10 mg PO TID 01/21/18 [History] Insulin NPH Human Isophane [Novolin N] 20 unit SQ BID 01/21/18 [History] Ipratropium/Albuterol Neb [Duoneb] 3 ml IH Q3-6H PRN 01/21/18 [History] amLODIPine [Norvasc] 10 mg PO DAILY 02/15/18 [History] Doxycycline 100 mg PO BID #11 capsule 02/23/18 [Rx] predniSONE [PredniSONE] 20 mg PO DAILY #24 tablet 02/23/18 [Rx] Albuterol Sulfate [Ventolin Hfa] 2 puff IH Q3-6H PRN 02/24/18 [History] Losartan Potassium 25 mg PO DAILY 02/24/18 [History] Metoprolol Tartrate 50 mg PO BID 02/24/18 [History] cloNIDine HCl [Clonidine HCl] 0.3 mg PO TID 02/24/18 [History] raNITIdine HCl [Zantac] 150 mg PO DAILY PRN 02/24/18 [History] Allergy/AdvReac Type Severity Reaction Status Date / Time NSAIDS (Non-Steroidal Allergy Unknown See Verified 02/24/18 12:58 Anti-Inflamma Comments Penicillins Allergy Unknown Hives Verified 02/24/18 12:58 lisinopril AdvReac Cough Verified 02/24/18 12:58 lorazepam [From Ativan] AdvReac Confusion Verified 02/24/18 12:58 tramadol AdvReac Nausea, Verified 02/24/18 12:58 VOMITING All Systems PM: A 10-system review of systems was performed and is negative for pertinent findings except as documented above in the HPI. - Constitutional Vitals: Temp Pulse Resp BP Pulse Ox 98.5 F 126 22 161/107 94 02/24/18 07:30 02/24/18 10:52 02/24/18 10:52 02/24/18 10:52 02/24/18 10:52 Exam: Pt is AAO x 3, in acute pain and nausea HEENT: NC/AT, PERRL Neck: Supple, no JVD, no LAD Lungs: CTA b/l, breath sound low bilaterally Heart: S1S2, RRR Abd: Soft, tender on epigastric area, BS present Ext: ROM wnl, no pedal edema Neuro: No focal deficit Internal Med - H&P Results - Labs CBC & Chem 7: 02/24/18 08:27 02/24/18 08:27 Labs: Short CBC 02/24/18 Range/Units 08:27 WBC 48.2 H* D (4.3-11.1) K/mcL Hgb 14.5 D (11.5-15.4) g/dL Hct 45.5 H (35.3-44.9) % Plt Count 431 H (140-400) K/mcL Neutrophils # 43.4 H (1.6-8.9) K/mcL BMP 02/24/18 08:27 Sodium 137 Potassium 4.1 Chloride 98 Carbon Dioxide 29 BUN 37 H Creatinine 0.65 Glucose 412 H Calcium 8.0 L Cardiac Enzymes 02/24/18 Range/Units 08:27 Troponin I < 0.03 (< 0.04) ng/mL Liver Function 02/24/18 Range/Units 08:27 Total Bilirubin 0.4 (0.3-1.0) mg/dL Direct Bilirubin 0.1 (0.0-0.2) mg/dL AST 19 (13-39) Units/L ALT 33 (7-52) Units/L Alkaline Phosphatase 110 H (34-104) Units/L Albumin 3.7 (3.5-5.7) g/dL Urine 02/24/18 Range/Units 12:07 Urine Color Yellow (Yellow) Urine Clarity Clear (Clear) Urine pH 6.0 (5.0-8.0) pH Units Ur Specific [place] > 1.030 H (1.010-1.025) Urine Protein 30 H (Neg-Trace) mg/dL Urine Glucose (UA) >=1000 H (Normal) mg/dL - Impressions ITS Impressions Chest X-Ray 02/24/18 07:35 IMPRESSION: Low lung volumes. No acute cardiopulmonary disease. D/ / Darnell Cabrera MD / Darnell Cabrera MD Interpreting Provider: Darnell Cabrera MD Abdomen/Pelvis CT 02/24/18 09:04 IMPRESSION: No acute bowel abnormality. Specifically, no focal CT abnormality of the stomach. Mild diffuse hepatic steatosis. Stable infrarenal abdominal aortic aneurysm measuring 3.2 cm in diameter. Stable right common iliac artery aneurysm measuring 2.6 cm in diameter. Moderate atherosclerotic disease. Please see follow-up recommendations below. Stable benign left adrenal adenoma measuring 8 mm. RECOMMENDATIONS: 3.2 cm AAA Recommend follow-up every 3 years. Reference: J Vasc Surg 2009 Nov;50(4 Suppl):S2-49. D/ / 02/24/2018 12:12:48 Kirit Chairez MD / дмитрий Interpreting Provider: Kirit Chairez MD - Assessment and plan (1) Nausea & vomiting Current Visit: Yes Status: Acute Assessment and plan: Most likely due to peptic ulcer disease. - Keep NPO, IVF, IV PPI - Symptomatic treatment with zofran and phenergan - GI consult. Qualifiers: Vomiting type: bilious vomiting Qualified Code(s): R11.14 - Bilious v omiting (2) Peptic ulcer disease Current Visit: Yes Status: Acute Assessment and plan: Pt has large ulcer on the EGD done in 2017 - IV PPI, IV Fluid, NPO - GI consult (3) Dehydration Current Visit: Yes Status: Acute Assessment and plan: Pt's lab c/w severe dehydyation, likely due to severe vomiting. - Hydrate pt with IVF - Monitor BMP, electrolytes and correct abnormalities. (4) Abdominal aortic aneurysm Current Visit: No Status: Acute Assessment and plan: Stable per CT abd, cont f/u as outpatient. Qualifiers: Presence of rupture: without rupture Qualified Code(s): I71.4 - Abdominal aortic aneurysm, without rupture (5) Acute hyperglycemia Current Visit: No Status: Acute Assessment and plan: Probably due to stress and recent steroid use. Cont basal and sliding scale insulin. (6) DM (diabetes mellitus) Current Visit: No Status: Acute Assessment and plan: Cont basal and sliding scale insulin. 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 - EKG and troponin unremarkable, pt denies SOB, less likely cardiac ischemia. - Lipase negative, less likely pancreatitis - CT abd didn't show other possible intra-abd abnormalities - AAA stable. - Will treat PUD as above. - Pain meds for pain controll. (9) Leukocytosis Current Visit: No Status: Acute Assessment and plan: WBC 48k, possibly multifactoral include recent steroid use and severe dehydration. However, pt has elevated lactate and meet SIRS criteria. - Rocephin 1g give by ED, will continue. - Cont IVF, repeat lactate - F/U blood culture. Qualifiers: Leukocytosis type: unspecified Qualified Code(s): D72.829 - Elevated white blood cell count, unspecified (10) History of renal artery stenosis Current Visit: No Status: Chronic (11) Hypertension Current Visit: No Status: Chronic Assessment and plan: Hydralazine iv PRN, resume po meds when pt start diet. Qualifiers: Hypertension type: essential hypertension Qualified Code(s): I10 - Essential (primary) hypertension (12) JORGE (obstructive sleep apnea) Current Visit: No Status: Acute Assessment and plan: Cont BipAP during night. - Time Spent With Patient Total time spent is greater than 50% in coordination of care (as documented) at patient's floor/unit and/or counseling patient: 40 min Greater than 35 minutes
[2018-02-24] MEDS: Ipratropium/Albuterol Neb 3 ML IH SCH ×3 (15:32→23:53)
[2018-02-24] MEDS: OXYCODONE Oral CONC 10 MG/0.5 ML ORAL.SYG SL PRN (15:53)
[2018-02-24] MEDS: Ondansetron ODT 4 MG TAB.RAPDIS SL PRN (15:54)
[2018-02-24] MEDS: Pantoprazole 40 MG in 0.9 % Sodium Chloride Mini Bag 100 ML IVC SCH ×2 (15:55→21:39)
[2018-02-24] MEDS: 0.9 % Sodium Chloride 1,000 ML IVC SCH (16:07)
--- NOTE | 2018-02-24 17:21 | Electrocardiograph Report ---
[place] [id number] Test Date: 2018-02-24 Pat Name: Nora Ren Department: [id number] Room: 3B24 Gender: F [employer]: : [id number] Requested By: Rodolfo Bustamante Order Number: [id number] Reading MD: Live Crooks Measurements Intervals [place] Rate: 118 P: 62 MO: 139 QRS: 60 QRSD: 88 T: 39 QT: 297 QTc: 417 Interpretive Statements Sinus tachycardia Poor R wave progression Electronically Signed On 02-24-2018 17:19:39 EST by Live Crooks
[2018-02-24] MEDS ORDERED: 0.9 % Sodium Chloride 1,000 ML IVC ONE (17:54)
[2018-02-24] MEDS: *HR* Promethazine 25 MG/ML VIAL IVP PRN (17:55)
[2018-02-24] MEDS: *HR* Metoprolol 5 MG/5 ML VIAL IVP PRN (17:55)
[2018-02-24] MEDS: Insulin LISPRO 300 UNITS/3 ML VIAL SQ SCH (17:56)
[2018-02-24] MEDS ORDERED: Prochlorperazine 10 MG/2 ML VIAL IVP PRN (20:28)
[2018-02-24] MEDS: Insulin NPH 100 UNIT/ML (x5UNIT) SQ SCH (21:39)
[2018-02-25] MEDS: Insulin LISPRO 300 UNITS/3 ML VIAL SQ SCH ×5 (00:24→23:58)
[2018-02-25] MEDS: 0.9 % Sodium Chloride 1,000 ML IVC SCH ×5 (02:09→21:45)
[2018-02-25] MEDS: Pantoprazole 40 MG in 0.9 % Sodium Chloride Mini Bag 100 ML IVC SCH ×5 (02:10→21:44)
[2018-02-25] MEDS ORDERED: *HR* OxyCODONE Immed Rel 5 MG TABLET PO ONE (03:51)
[2018-02-25] MEDS: *HR* Promethazine 25 MG/ML VIAL IVP PRN ×2 (04:01→17:32)
[2018-02-25] MEDS: Ipratropium/Albuterol Neb 3 ML IH SCH ×5 (04:46→20:06)
[2018-02-25] MEDS ORDERED: *HR* Metoprolol 5 MG/5 ML VIAL IVP ONE (05:12)
--- NOTE | 2018-02-25 06:22 | Anesthesia Evaluation PreOp ---
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 10/09/17 [Rx] RX: Atorvastatin [Lipitor] 40 mg PO DAILY 01/21/18 [History] RX: Buspirone HCl [Buspar] 10 mg PO TID 01/21/18 [History] RX: Insulin NPH Human Isophane [Novolin N] 20 unit SQ BID 01/21/18 [History] RX: Ipratropium/Albuterol Neb [Duoneb] 3 ml IH Q3-6H PRN 01/21/18 [History] RX: amLODIPine [Norvasc] 10 mg PO DAILY 02/15/18 [History] RX: Doxycycline 100 mg PO BID #11 capsule 02/23/18 [Rx] RX: predniSONE [PredniSONE] 20 mg PO DAILY #24 tablet 02/23/18 [Rx] Losartan Potassium 25 mg PO DAILY 02/24/18 [History] Metoprolol Tartrate 50 mg PO BID 02/24/18 [History] RX: Albuterol Sulfate [Ventolin Hfa] 2 puff IH Q3-6H PRN 02/24/18 [History] RX: cloNIDine HCl [Clonidine HCl] 0.3 mg PO TID 02/24/18 [History] raNITIdine HCl [Zantac] 150 mg PO DAILY PRN 02/24/18 [History] Allergy/AdvReac Type Severity Reaction Status Date / Time NSAIDS (Non-Steroidal Allergy Unknown See Verified 02/24/18 12:58 Anti-Inflamma Comments Penicillins Allergy Unknown Hives Verified 02/24/18 12:58 lisinopril AdvReac Cough Verified 02/24/18 12:58 lorazepam [From Ativan] AdvReac Confusion Verified 02/24/18 12:58 tramadol AdvReac Nausea, Verified 02/24/18 12:58 VOMITING - Meds/Allergy Pre-op Review Medications Reviewed: Yes Allergies Reviewed: Yes Beta Blockers on Current Med List: Yes ([id number]) Anesthesia Results - Labs 02/25/18 06:00 02/25/18 06:00 - Imaging EKG: report reviewed (sinus tachycardia) Anesthesia Exam Weight: 79 kg - HEENT Pupil (Motor): Pupils equal Teeth: Edentulous Oral Opening: Greater than 3 - Cardiac Rhythm: Regular Murmur: None - Pulmonary Breath Sounds: bilateral Clear (rare wheeze) Anesthesia Assess/Plan ASA Score: 3 Level of consciousness: Cooperative Anesthetic Plan: MAC Recovery Plan: Other (Discussed MAC anesthesia, agreed to proceed.)
[2018-02-25 07:12] LABS: Hematocrit 41.5 % (35.3-44.9); Lymphocytes # 1.3 K/mcL (0.6-4.6); Mean Corpuscular HGB Conc 31.3 g/dL (31.6-35.5); Mean Corpuscular Hemoglobin 28.2 pg (28.0-33.3); Mean Platelet Volume 11.6 fL (9.4-12.4); Nucleated Red Blood Cells 0.2 /100 WBC (0); Platelet Count 268 K/mcL (140-400); Red Blood Count 4.61 M/mcL (3.82-4.97)
[2018-02-25 07:46] LABS: BUN/Creatinine Ratio 36 (6-26); Blood Urea Nitrogen 18 mg/dL (8-23); Calcium 7.9 mg/dL (8.6-10.3); Carbon Dioxide 31 mEq/L (23-29); Chloride 103 mEq/L (98-107); Glucose 201 mg/dL (70-105); Magnesium 1.6 mg/dL (1.6-2.6); Osmolality,Calculated 300 (280-300); Phosphorous 1.8 mg/dL (2.7-4.5); Sodium 141 mEq/L (136-145); eGFR For Non-African Americans > 60 (> 60)
[2018-02-25] MEDS ORDERED: Lidocaine -MPF 2% 2 ML VIAL ONE (07:53)
[2018-02-25] MEDS ORDERED: Propofol 500 MG/50 ML INFUS..BTL ONE (07:53)
[2018-02-25] MEDS ORDERED: Potassium Phosphate 44 MEQ in 0.9 % Sodium Chloride 250 ML IVPB ONE (07:56)
[2018-02-25 08:16] LABS: Monocytes # 1.6 K/mcL (0.0-1.3); Neutrophils # 13.3 K/mcL (1.6-8.9)
[2018-02-25 08:17] LABS: Platelet Estimate Normal (Normal)
[2018-02-25] MEDS ORDERED: *HR* Midazolam HCl 2 MG/2 ML VIAL ONE (08:49)
--- NOTE | 2018-02-25 09:25 | Gastroenterology Consult Note ---
Date of Encounter: 03/01/18 Time of Encounter: 08:00 - Assessment and plan (1) Abdominal pain Status: Acute Assessment and plan: Multifactorial plan EGD to exclude PUD and gastric outlet obstruction Qualifiers: Abdominal location: epigastric Qualified Code(s): R10.13 - Epigastric pain (2) Dehydration Status: Acute Assessment and plan: Hydrate per hospitalist service (3) Leukocytosis Status: Acute Assessment and plan: Per hospitalist service Qualifiers: Leukocytosis type: unspecified Qualified Code(s): D72.829 - Elevated white blood cell count, unspecified (4) Nausea & vomiting Status: Acute Assessment and plan: Symptomatic management, EGD today Qualifiers: Vomiting type: unspecified Vomiting Intractability: intractable Qualified Code(s): R11.2 - Nausea with vomiting, unspecified (5) Peptic ulcer disease Status: Acute Assessment and plan: Review old records (6) Acute and chronic respiratory failure with hypoxia Status: Acute - Time Spent With Patient Total time spent is greater than 50% in coordination of care (as documented) at patient's floor/unit and/or counseling patient: 25 - 35 minutes GI History of Present Illness - Data of Consult Patient: new to practice Consult date: 02/25/18 Requesting Physician: Angela Rousseau MD - Consult Narrative Reason for consult: Epigastric pain, dark stools, anemia History of present illness: Ms. Ren is a 58 year old female with epigastric pain radiating to the back, dysphagia to solids, history of heartburn, history of peptic ulcer disease she was in usual state up until 3 days ago when she started developing the symptoms. No history of any hematemesis emesis chest pain or syncope. She takes an aspirin a day no history of coronary artery disease. Last colonoscopy was about 10 years ago no history of polyps negative family history of gastrointestinal malignancy. Plan an EGD today to determine recurrence of ulcer a distinct possiblity since she had this about 2 years ago apparently. 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 Psychiatric history: anxiety, depression - Past Surgical History Surgical History: appendectomy, cholecystectomy, knee replacement, ureteral stent Additional surgical history: renal artery stent - Social History Smoking Status: Never smoker Smokeless Tobacco Status: No Alcohol use: none Drug use: none - Family History Father Family Member Ethnicity: Non- Living Status: Hx Family Cardiac Disorders: Yes Hx Family Respiratory Disorders: No Hx Family Cancer: No Hx Family GI Disorders: No Hx Family Endocrine Disorder: No Hx Family Neuromuscular Disorders: No Hx Family Neurologic Disorders: No Hx Family HEENT Disorders: No Hx Family Autoimmune Disorders: No Mother Adopted: No Family Member Ethnicity: Non- Living Status: Still Living Hx Family Cardiac Disorders: No Hx Family Respiratory Disorders: No Hx Family Cancer: No Hx Family GI Disorders: No Hx Family Endocrine Disorder: Yes (DM) Hx Family Neuromuscular Disorders: No Hx Family Neurologic Disorders: No Hx Family HEENT Disorders: No Hx Family Autoimmune Disorders: Yes (Arthritis) - Gastrointestinal NSAID use: yes Aspirin daily Gastrointestinal: Present: abdominal pain, bloating, heartburn, nausea Additional Comments: Epigastric tenderness. No guarding or rebound. Good bowel sounds. - Constitutional Constitutional: fatigue - Constitutional Vitals: Temp Pulse Resp BP Pulse Ox 98.0 F 124 24 174/140 95 02/25/18 08:41 02/25/18 08:41 02/25/18 08:41 02/25/18 08:41 02/25/18 08:41 - Eye Eye exam: Present: EOMI, PERRL - GI/Abdominal Additional comments: Epigastric tenderness present. No rebound/guarding. Good bowel sounds - Rectal Rectal exam: Present: deferred Results - Labs CBC & Chem 7: 02/26/18 06:30 02/26/18 06:30 Labs: Last Result Calcium 7.9 mg/dL (8.6-10.3) L 02/25/18 06:00 Troponin I < 0.03 ng/mL (< 0.04) 02/24/18 08:27 Entire Visit Hgb 13.0 g/dL (11.5-15.4) D 02/25/18 06:00 Hct 41.5 % (35.3-44.9) 02/25/18 06:00 Total Bilirubin 0.4 mg/dL (0.3-1.0) 02/24/18 08:27 AST 19 Units/L (13-39) 02/24/18 08:27 ALT 33 Units/L (7-52) 02/24/18 08:27 Lipase 21 Units/L (11-82) 02/24/18 08:27 - Impressions Impressions Abdomen/Pelvis CT 02/24/18 09:04 IMPRESSION: No acute bowel abnormality. Specifically, no focal CT abnormality of the stomach. Mild diffuse hepatic steatosis. Stable infrarenal abdominal aortic aneurysm measuring 3.2 cm in diameter. Stable right common iliac artery aneurysm measuring 2.6 cm in diameter. Moderate atherosclerotic disease. Please see follow-up recommendations below. Stable benign left adrenal adenoma measuring 8 mm. RECOMMENDATIONS: 3.2 cm AAA Recommend follow-up every 3 years. Reference: J Vasc Surg 2009 Nov;50(4 Suppl):S2-49. D/ / 02/24/2018 12:12:48 Kirit Chairez MD / дмитрий Interpreting Provider: Kirit Chairez MD Consult Discharge Plan - Plan Instructions: Sucralfate (By mouth), Omeprazole (By mouth), Ondansetron (By mouth) Referrals: Elbert Mo MD [Partnered Physician] - (a web request has been submitted and the office will call you with the appointments date/time.) NONE,PCP [Primary Care Provider] - Prescriptions: Omeprazole [PriLOSEC] 40 mg PO DAILY@0630 30 Days #60 capsule. Ondansetron ODT [Zofran ODT] 4 mg SL Q4H PRN 10 Days #60 tab.rapdis PRN Reason: Nausea And Vomiting Sucralfate [Carafate] 1 gm PO QIDAC 30 Days #120 tablet
[2018-02-25] MEDS: cefTRIAXone 1,000 MG in Water for inj. (sterile) 20 ML 10 ML IVP SCH (10:38)
[2018-02-25] MEDS: Ondansetron ODT 4 MG TAB.RAPDIS SL PRN ×2 (10:38→21:37)
[2018-02-25] MEDS: OXYCODONE Oral CONC 10 MG/0.5 ML ORAL.SYG SL PRN ×3 (10:39→21:37)
[2018-02-25] MEDS: Insulin NPH 100 UNIT/ML (x5UNIT) SQ SCH ×2 (10:59→21:46)
[2018-02-25] MEDS: *HR* Metoprolol 5 MG/5 ML VIAL IVP PRN (13:02)
[2018-02-25] MEDS ORDERED: Furosemide 40 MG TABLET PO PRN (13:26)
--- NOTE | 2018-02-25 14:10 | Internal Med Progress Note ---
Hospitalist Progress Note - Encounter Date of Encounter: 02/25/18 Time of Encounter: 09:00 - Subjective Interval History: Patient has less vomiting but still nausea. Still complaining of epigastric pain. Had EGD today. - Exam Vitals: Temp Pulse Resp BP Pulse Ox 97.8 F 137 20 162/87 94 02/25/18 11:31 02/25/18 11:31 02/25/18 11:31 02/25/18 11:31 02/25/18 11:31 Exam: Pt is AAO x 3, in acute pain and nausea HEENT: NC/AT, PERRL Neck: Supple, no JVD, no LAD Lungs: CTA b/l, breath sound low bilaterally Heart: S1S2, RRR tachycardia, Abd: Soft, tender on epigastric area, BS present Ext: ROM wnl, no pedal edema Neuro: No focal deficit - Assessment and Plan (1) Nausea & vomiting Current Visit: Yes Status: Acute Assessment and Plan: Most likely due to peptic ulcer disease or esophageal stenosis. - Had EGD, esophageal stenosis dilated. start diet per GI - Symptomatic treatment with zofran and phenergan (2) Peptic ulcer disease Current Visit: Yes Status: Acute Assessment and Plan: Pt has small ulver - IV PPI, start diet - GI consult appreciated (3) Dehydration Current Visit: Yes Status: Acute Assessment and Plan: Pt's lab c/w severe dehydyation, likely due to severe vomiting. - Hydrate pt with IVF - Monitor BMP, electrolytes and correct abnormalities. (4) Abdominal aortic aneurysm Current Visit: No Status: Acute (5) Acute hyperglycemia Current Visit: No Status: Acute Assessment and Plan: Probably due to stress and recent steroid use. Cont basal and sliding scale insulin. Glu get down to 170 (6) DM (diabetes mellitus) Current Visit: No Status: Acute Assessment and Plan: Cont basal and sliding scale insulin. (7) DVT prophylaxis Current Visit: No Status: Acute Assessment and Plan: EPCDs, no AC because EGD/biopsy (8) Epigastric pain Current Visit: No Status: Acute Assessment and Plan: Etiology undetermined, most likely PUD which is worsen by steroid, or esophageal stenosis. - EKG and troponin unremarkable, pt denies SOB, less likely cardiac ischemia. - Lipase negative, less likely pancreatitis - CT abd didn't show other possible intra-abd abnormalities - AAA stable. - Will treat PUD as above. - Pain meds for pain controll. (9) Leukocytosis Current Visit: No Status: Acute Assessment and Plan: WBC 48k, possibly multifactoral include recent steroid use and severe dehydration. However, pt has elevated lactate and meet SIRS criteria. - Rocephin 1g give by ED, will continue. - Cont IVF, repeat lactate - F/U blood culture. - WBC get down to 16.2 (10) History of renal artery stenosis Current Visit: No Status: Chronic (11) Hypertension Current Visit: No Status: Chronic Assessment and Plan: Resume home HTN meds as diet started. (12) JORGE (obstructive sleep apnea) Current Visit: No Status: Acute Assessment and Plan: Cont BipAP during night. DVT Prophylaxis: EPCDs - Time Spent with Patient Total time spent is greater than 50% in coordination of care (as documented) at patient's floor/unit and/or counseling patient: 30 minutes 25 - 35 minutes Plan of Care Discussed with: patient Internal Medicine: Result - Labs CBC & Chem 7: 02/25/18 06:00 02/25/18 06:00 Labs: Short CBC 02/25/18 Range/Units 06:00 WBC 16.2 H D (4.3-11.1) K/mcL Hgb 13.0 D (11.5-15.4) g/dL Hct 41.5 (35.3-44.9) % Plt Count 268 (140-400) K/mcL Neutrophils # 13.3 H (1.6-8.9) K/mcL BMP 02/25/18 06:00 Sodium 141 Potassium 3.0 L D Chloride 103 Carbon Dioxide 31 H BUN 18 Creatinine 0.50 L Glucose 201 H Calcium 7.9 L Consult Discharge Plan - Plan Referrals: NONE,PCP [Primary Care Provider] - (1) Nausea & vomiting Qualifiers: Vomiting type: unspecified Vomiting Intractability: non-intractable Qualified Code(s): R11.2 - Nausea with vomiting, unspecified (4) Abdominal aortic aneurysm Qualifiers: Presence of rupture: without rupture Qualified Code(s): I71.4 - Abdominal aortic aneurysm, without rupture (6) DM (diabetes mellitus) Qualifiers: Diabetes mellitus type: type 2 Diabetes mellitus 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
[2018-02-25] MEDS: amLODIPine 5 MG TABLET PO SCH (14:26)
[2018-02-25] MEDS: cloNIDine HCl 0.1 MG TABLET PO SCH ×2 (15:53→21:45)
[2018-02-26] MEDS: Ipratropium/Albuterol Neb 3 ML IH SCH ×7 (00:15→23:39)
[2018-02-26] MEDS: Pantoprazole 40 MG in 0.9 % Sodium Chloride Mini Bag 100 ML IVC SCH ×2 (02:35→07:41)
[2018-02-26] MEDS: *HR* Promethazine 25 MG/ML VIAL IVP PRN ×2 (02:39→15:11)
[2018-02-26] MEDS: Ondansetron ODT 4 MG TAB.RAPDIS SL PRN (06:39)
[2018-02-26] MEDS: OXYCODONE Oral CONC 10 MG/0.5 ML ORAL.SYG SL PRN ×3 (06:39→21:01)
[2018-02-26] MEDS: Insulin LISPRO 300 UNITS/3 ML VIAL SQ SCH ×3 (06:42→17:50)
[2018-02-26 07:23] LABS: Hematocrit 37.7 % (35.3-44.9); Hemoglobin 11.8 g/dL (11.5-15.4); Mean Corpuscular HGB Conc 31.3 g/dL (31.6-35.5); Mean Corpuscular Hemoglobin 28.4 pg (28.0-33.3); Mean Corpuscular Volume 90.8 fL (83.0-100.0); Mean Platelet Volume 11.1 fL (9.4-12.4); Platelet Count 206 K/mcL (140-400); Red Blood Count 4.15 M/mcL (3.82-4.97); Red Cell Distribution Width 15.8 % (11.5-14.5)
[2018-02-26] MEDS: amLODIPine 5 MG TABLET PO SCH (07:38)
[2018-02-26] MEDS: Aspirin Enteric Coated 81 MG Tablet PO SCH (07:38)
[2018-02-26] MEDS: cloNIDine HCl 0.1 MG TABLET PO SCH ×3 (07:38→20:49)
[2018-02-26] MEDS: cefTRIAXone 1,000 MG in Water for inj. (sterile) 20 ML 10 ML IVP SCH (07:40)
[2018-02-26] MEDS: Insulin NPH 100 UNIT/ML (x5UNIT) SQ SCH ×2 (07:44→20:54)
[2018-02-26 07:46] LABS: BUN/Creatinine Ratio 15 (6-26); Blood Urea Nitrogen 10 mg/dL (8-23); Calcium 7.7 mg/dL (8.6-10.3); Carbon Dioxide 30 mEq/L (23-29); Chloride 102 mEq/L (98-107); Glucose 267 mg/dL (70-105); Osmolality,Calculated 300 (280-300); Potassium 3.1 mEq/L (3.5-5.1); Sodium 141 mEq/L (136-145); eGFR For Non-African Americans > 60 (> 60)
[2018-02-26 08:04] LABS: Eosinophils # 0.3 K/mcL (0.0-0.6); Lymphocytes # 1.5 K/mcL (0.6-4.6); Monocytes # 1.2 K/mcL (0.0-1.3); Neutrophils # 12.1 K/mcL (1.6-8.9); Platelet Estimate Normal (Normal)
[2018-02-26] MEDS ORDERED: Potassium Chloride 40 MEQ, Lidocaine 1% 2 ML in D5% in Water 500 ML IVPB ONE (08:04)
[2018-02-26 08:05] LABS: Anisocytosis 1+ (Not Present)
[2018-02-26] MEDS: 0.9 % Sodium Chloride 1,000 ML IVC SCH ×2 (08:17→08:21)
[2018-02-26] MEDS: Sucralfate 1 GM TABLET PO SCH ×3 (11:51→21:00)
--- NOTE | 2018-02-26 15:31 | Internal Med Progress Note ---
Hospitalist Progress Note - Encounter Date of Encounter: 02/26/18 Time of Encounter: 09:00 - Subjective Interval History: Patient has no further vomiting but still nausea, said improved. Still complaining of epigastric pain but much better. Had EGD. - Exam Vitals: Temp Pulse Resp BP Pulse Ox 98.9 F 85 17 127/71 90 02/26/18 11:53 02/26/18 11:53 02/26/18 11:53 02/26/18 11:53 02/26/18 11:53 Exam: Pt is AAO x 3, in acute pain and nausea HEENT: NC/AT, PERRL Neck: Supple, no JVD, no LAD Lungs: CTA b/l, breath sound low bilaterally Heart: S1S2, RRR Abd: Soft, tender on epigastric area, BS present Ext: ROM wnl, no pedal edema Neuro: No focal deficit - Assessment and Plan (1) Nausea & vomiting Current Visit: Yes Status: Acute Assessment and Plan: Most likely due to peptic ulcer disease or esophageal stenosis. - Had EGD, esophageal stenosis dilated. start diet per GI - Symptomatic treatment with zofran and phenergan (2) Peptic ulcer disease Current Visit: Yes Status: Acute Assessment and Plan: Pt has small ulcer per EGD - po PPI, start diet, add carafate po - GI consult appreciated (3) Dehydration Current Visit: Yes Status: Acute Assessment and Plan: Pt's lab c/w severe dehydyation, likely due to severe vomiting. - Hydrate pt with IVF - Monitor BMP, electrolytes and correct abnormalities. (4) Abdominal aortic aneurysm Current Visit: No Status: Acute Assessment and Plan: Stable per CT abd, cont f/u as outpatient. (5) Acute hyperglycemia Current Visit: No Status: Acute Assessment and Plan: Probably due to stress and recent steroid use. Cont basal and sliding scale insulin. Glu get down (6) DM (diabetes mellitus) Current Visit: No Status: Acute Assessment and Plan: Cont basal and sliding scale insulin. (7) DVT prophylaxis Current Visit: No Status: Acute Assessment and Plan: EPCDs, no AC because EGD/biopsy (8) Epigastric pain Current Visit: No Status: Acute Assessment and Plan: Etiology undetermined, most likely PUD which is worsen by steroid, or esophageal stenosis. - EKG and troponin unremarkable, pt denies SOB, less likely cardiac ischemia. - Lipase negative, less likely pancreatitis - CT abd didn't show other possible intra-abd abnormalities - AAA stable. - Will treat PUD as above. - Pain meds for pain controll. (9) Leukocytosis Current Visit: No Status: Acute Assessment and Plan: WBC further get down. no fever. Tachycardia improved, so far no signs of infection, will d/c rocephin. (10) History of renal artery stenosis Current Visit: No Status: Chronic (11) Hypertension Current Visit: No Status: Chronic Assessment and Plan: Resume home HTN meds as diet started. BP stable. (12) JORGE (obstructive sleep apnea) Current Visit: No Status: Acute Assessment and Plan: Cont BipAP during night. DVT Prophylaxis: EPCDs - Time Spent with Patient Total time spent is greater than 50% in coordination of care (as documented) at patient's floor/unit and/or counseling patient: 30 minutes 25 - 35 minutes Plan of Care Discussed with: patient Internal Medicine: Result - Labs CBC & Chem 7: 02/26/18 06:30 02/26/18 06:30 Labs: Short CBC 02/26/18 Range/Units 06:30 WBC 15.1 H (4.3-11.1) K/mcL Hgb 11.8 (11.5-15.4) g/dL Hct 37.7 (35.3-44.9) % Plt Count 206 (140-400) K/mcL Neutrophils # 12.1 H (1.6-8.9) K/mcL BMP 02/26/18 06:30 Sodium 141 Potassium 3.1 L Chloride 102 Carbon Dioxide 30 H BUN 10 Creatinine 0.65 Glucose 267 H Calcium 7.7 L Consult Discharge Plan - Plan Referrals: NONE,PCP [Primary Care Provider] - (1) Nausea & vomiting Qualifiers: Vomiting type: unspecified Vomiting Intractability: non-intractable Qualified Code(s): R11.2 - Nausea with vomiting, unspecified (4) Abdominal aortic aneurysm Qualifiers: Presence of rupture: without rupture Qualified Code(s): I71.4 - Abdominal aortic aneurysm, without rupture (6) DM (diabetes mellitus) Qualifiers: Diabetes mellitus type: type 2 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
[2018-02-26] MEDS ORDERED: Insulin LISPRO 300 UNITS/3 ML VIAL SQ SCH (21:00)
[2018-02-27] MEDS: Ipratropium/Albuterol Neb 3 ML IH SCH ×3 (03:51→11:20)
[2018-02-27] MEDS: OXYCODONE Oral CONC 10 MG/0.5 ML ORAL.SYG SL PRN ×2 (04:25→09:38)
[2018-02-27] MEDS: Ondansetron ODT 4 MG TAB.RAPDIS SL PRN (04:25)
[2018-02-27] MEDS: 0.9 % Sodium Chloride 1,000 ML IVC SCH (04:26)
[2018-02-27] MEDS: cloNIDine HCl 0.1 MG TABLET PO SCH (08:08)
[2018-02-27] MEDS: Sucralfate 1 GM TABLET PO SCH ×2 (08:08→11:09)
[2018-02-27] MEDS: Aspirin Enteric Coated 81 MG Tablet PO SCH (08:08)
[2018-02-27] MEDS: amLODIPine 5 MG TABLET PO SCH (08:08)
[2018-02-27] MEDS: Insulin LISPRO 300 UNITS/3 ML VIAL SQ SCH ×2 (08:09→11:09)
[2018-02-27] MEDS: Insulin NPH 100 UNIT/ML (x5UNIT) SQ SCH (08:11)
--- NOTE | 2018-02-27 10:27 | Discharge Summary ---
- NOTES TO OUTPATIENT PROVIDER Notes to Outpatient Provider: 1. F/U with GI as outpatient Orders not resulted at time of discharge: Pending orders 02/24/18 09:28 Culture,Blood [BC] Stat 02/25/18 09:08 Surgical Pathology [PTH] Routine 02/27/18 04:00 BMP [Basic Metabolic Panel] AM 0400 Complete Blood Count [HEME] AM 0400 Date of Encounter: 02/27/18 Time of Encounter: 09:00 - Discharge Diagnosis (1) Nausea & vomiting Priority: Primary Status: Acute Qualifiers: Vomiting type: unspecified Vomiting Intractability: non-intractable Qualified Code(s): R11.2 - Nausea with vomiting, unspecified (2) Peptic ulcer disease Priority: Primary Status: Acute (3) Dehydration Priority: Primary Status: Acute (4) Abdominal aortic aneurysm Priority: Secondary Status: Acute Qualifiers: Presence of rupture: without rupture Qualified Code(s): I71.4 - Abdominal aortic aneurysm, without rupture (5) Acute hyperglycemia Priority: Secondary Status: Acute (6) DM (diabetes mellitus) Priority: Secondary Status: Acute Qualifiers: Diabetes mellitus type: type 2 Diabetes mellitus 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 press 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 insulin use: with long-term use Diabetes mellitus complication status: without complication Qualified Code(s): E11.9 - Type 2 diabetes mellitus without complications; Z79.4 - terminal operator (current) 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 (7) DVT prophylaxis Priority: Secondary Status: Acute (8) Epigastric pain Priority: Primary Status: Acute (9) Leukocytosis Priority: Primary Status: Acute Qualifiers: Leukocytosis type: unspecified Qualified Code(s): D72.829 - Elevated white blood cell count, unspecified (10) History of renal artery stenosis Priority: Secondary Status: Chronic (11) Hypertension Priority: Secondary Status: Chronic Qualifiers: Hypertension type: essential hypertension Qualified Code(s): I10 - Essential (primary) hypertension (12) JORGE (obstructive sleep apnea) Priority: Secondary Status: Acute Hospital course: Ms. Ren is a 58 year old female present to ER for nausea vomiting and epigastric pain. Patient has history of peptic ulcer disease and recently started by mouth steroid for COPD exacerbation. Patient was treated with hydration and symptomatic treatment for nausea vomiting. GI consult was called and the EGD has been done, which shows esophagus stenosis and peptic ulcer. Esophagus dilation has been done by GI. Recommend continue by mouth PPI and Carafate. After treatment, patient's nausea and vomiting., Tolerate clear liquid diet. Still has epigastric pain but improved. Patient will discharge home and advance diet gradually by herself. Continue follow-up with GI as outpatient. By mouth steroid is on hold as patient has no wheezing. I have seen and examined this patient today. Patient is awake alert, oriented 3. Still mild epigastric pain, no nausea, no more vomiting. Vitals are stable. Patient has low potassium level, which was given supplement yesterday. Patient is stable to discharge home and continue follow-up as outpatient. Discharge discussed with: patient - Time Spent with Patient Total time spent providing and/or coordinating discharge services: 25 minutes Less than 30 minutes - Discharge Medications Prescriptions: Omeprazole [PriLOSEC] 40 mg PO DAILY@0630 30 Days #60 capsule. Ondansetron ODT [Zofran ODT] 4 mg SL Q4H PRN 10 Days #60 tab.rapdis PRN Reason: Nausea And Vomiting Sucralfate [Carafate] 1 gm PO QIDAC 30 Days #120 tablet Home Medications: Oxygen 3 l IH AD 07/19/16 [History] Furosemide [Lasix] 40 mg PO DAILY PRN #30 tablet 07/07/17 [Rx] Budesonide/Formoterol 160/4.5 [Symbicort 160/4.5] 2 puff IH BID 08/06/17 [History] Aspirin Enteric Coated [Aspirin EC] 81 mg PO DAILY tablet. 10/09/17 [Rx] Atorvastatin [Lipitor] 40 mg PO DAILY 01/21/18 [History] Buspirone HCl [Buspar] 10 mg PO TID 01/21/18 [History] Insulin NPH Human Isophane [Novolin N] 20 unit SQ BID 01/21/18 [History] Ipratropium/Albuterol Neb [Duoneb] 3 ml IH Q3-6H PRN 01/21/18 [History] amLODIPine [Norvasc] 10 mg PO DAILY 02/15/18 [History] Doxycycline 100 mg PO BID #11 capsule 02/23/18 [Rx] Albuterol Sulfate [Ventolin Hfa] 2 puff IH Q3-6H PRN 02/24/18 [History] Losartan Potassium 25 mg PO DAILY 02/24/18 [History] Metoprolol Tartrate 50 mg PO BID 02/24/18 [History] cloNIDine HCl [Clonidine HCl] 0.3 mg PO TID 02/24/18 [History] raNITIdine HCl [Zantac] 150 mg PO DAILY PRN 02/24/18 [History] Omeprazole [PriLOSEC] 40 mg PO DAILY@0630 30 Days #60 capsule. 02/27/18 [Rx] Ondansetron ODT [Zofran ODT] 4 mg SL Q4H PRN 10 Days #60 tab.rapdis 02/27/18 [Rx] Sucralfate [Carafate] 1 gm PO QIDAC 30 Days #120 tablet 02/27/18 [Rx] Allergies/Adverse Reactions: Allergy/AdvReac Type Severity Reaction Status Date / Time NSAIDS (Non-Steroidal Allergy Unknown See Verified 02/24/18 12:58 Anti-Inflamma Comments Penicillins Allergy Unknown Hives Verified 02/24/18 12:58 lisinopril AdvReac Cough Verified 02/24/18 12:58 lorazepam [From Ativan] AdvReac Confusion Verified 02/24/18 12:58 tramadol AdvReac Nausea, Verified 02/24/18 12:58 VOMITING Date of admission: 02/25/18 09:29 Primary care physician: PCP NONE Consults: 02/24/18 08:40 Consult to Invasive Line Access Team [CONS] Stat Reason for Consult: NO IV access Line Type: Midline 02/24/18 10:02 Consult to Invasive Line Access Team [CONS] Routine Reason for Consult: limited vascular Line Type: EPIV 02/24/18 14:44 Consult to Gastroenterology [CONS] Routine Consulting Provider: Gastroenterology Gloria Reason for Consult: PUD Call Completed: Yes Discharging clinician: Angela Rousseau Anticipated date of discharge: 02/27/18 - Constitutional Vitals: Temp Pulse Resp BP Pulse Ox 98.1 F 111 20 116/80 98 02/27/18 06:47 02/27/18 06:47 02/27/18 07:53 02/27/18 06:47 02/27/18 07:53 Exam: Pt is AAO x 3, in acute pain and nausea HEENT: NC/AT, PERRL Neck: Supple, no JVD, no LAD Lungs: CTA b/l, breath sound low bilaterally Heart: S1S2, RRR Abd: Soft, tender on epigastric area, BS present Ext: ROM wnl, no pedal edema Neuro: No focal deficit - Patient Status Disposition: Home, Self-Care Condition: Good Functional capacity at discharge: independent ambulation Overall status at discharge: patient is progressing back to baseline - Discharge Instructions Follow Up With: NONE,PCP [Primary Care Provider] - Elbert Mo MD [Partnered Physician] - - Diet and Activity Activity: increase activity as tolerated Diet: advance to your usual diet (Gradually and as tolerate)
[2018-02-27 11:09] VITALS: BP 99/62
== END 2018-02-27 12:09 | disposition home or self-care (01) | DRG 243 ==
LOC: EMEROOARM 07:16 → 3BNU 07:16 → SUATTDRO 13:03 → 3BNU 13:56
PROVIDERS: ADMIT Internal Medicine; ATTEND Internal Medicine
PROC: ENDOEBX (2018-02-25 08:50)